=== PATIENT | female | born 1955 | race Caucasian/White ===

== ENCOUNTER → 2018-04-28 06:14 | Outpatient (CLI) | payer OTHER, SELFPAY ==
--- NOTE | 2018-04-28 10:50 | STRESSREP_ITS ---
Stress Test Report Pharmacologic myocardial perfusion stress test. 62-year-old man with a history of atrial fibrillation. Medications metoprolol Xarelto Lasix lisinopril hydrochlorothiazide. Stress protocol. Resting EKG demonstrates atrial for ablation with an uncontrolled ventricular response rate of 139 bpm resting blood pressure is 122/[address]- T wave changes were noted at rest. 0.4 mg of regadenoson was infused per usual protocol followed by rapid intravenous saline flush injection continuous EKG monitoring was performed. The maximum heart rate attained was 181 bpm which was 114% of maximum predicted heart rate the maximum workload was [address]-T wave changes were noted at rest and at peak infusion. Resting blood pressure is 122/78 final blood pressure was 120/66. Myocardial perfusion protocol. 13.7 mCi of technetium 99m sestamibi was injected at rest. 0.4 mg of regadenoson was infused per usual protocol. At peak infusion 40.4 mCi of technetium 99m sestamibi was injected stress images were obtained stress and rest images were reconstructed and compared in the short axis vertical long and horizontal long axis. Gated images were also obtained pre- Perfusion SPECT analysis: Review of the stress images demonstrate normal uptake of tracer noted in all areas of the myocardium. The resting images similarly demonstrate normal uptake of tracer noted in all areas of the myocardium. No areas of reversibility are noted suggest ischemia and no previous infarct is noted. Gated SPECT analysis: The gated ejection fraction was inaccurately obtained. Please see echocardiographic results. Conclusion: Normal pharmacologic myocardial perfusion stress test with no evidence of ischemia. Atrial fibrillation with uncontrolled ventricular response rate.
== END ==
PROVIDERS: Family Provider Family Medicine; PCP Family Medicine; Visit Provider Internal Medicine Cardiovascular Disease
DX: I25.10 Atherosclerotic heart disease of native coronary artery without angina pectoris (principal); Z13.6 Encounter for screening for cardiovascular disorders; I48.0 Paroxysmal atrial fibrillation
CPT/HCPCS: 78452; 93017; A9500; A4216; J2785

== ENCOUNTER → 2020-06-03 10:49 | Outpatient (CLI) | payer OTHER, SELFPAY | PROVIDERS: PCP Family Medicine; Referring Provider Family Medicine; Visit Provider Family Medicine | DX: Z20.828 Contact with and (suspected) exposure to other viral communicable diseases (principal) | CPT/HCPCS: 87635; 94799; U0003 ==

== ENCOUNTER 2020-12-01 15:29 | Emergency (ER) | payer MEDICARE, OTHER, SELFPAY ==
[2020-12-01] VITALS (10 sets, daily range): BP systolic 93–137; BP diastolic 52–84; PULSE 69–88; RESP 15–18; TEMP 35.8–36.9; O2SAT 98–100; BMI 27.6
--- NOTE | 2020-12-01 15:52 | ED.DCSUM_ITS ---
- ER Visit Summary Date of Service: 12/01/20 Chief Complaint: Low hemoglobin History of Present Illness: The patient is a 65 F who presents with low hemoglobin. She had an outpatient blood draw yesterday which shows her hemoglobin is 6.6. She states that she has had anemia ever since she was placed on Xarelto for atrial fibrillation. She had upper and lower endoscopies which did not show any sources of bleeding. She currently has no blood in her stool. She does have some orthostatic symptoms such as lightheadedness when she goes from a sitting to standing position. She does have dyspnea with exertion as well. She has followed up with surgery for the endoscopies as well as hematology. Hematology placed her on iron supplementation. Physical Examination: Vital signs reviewed. HEENT exam unremarkable. Heart is regular rate and rhythm without murmurs. Lungs are clear to auscultation. Abdomen is soft and nontender. Extremities reveal no edema. Skin exam normal. Neurologic exam normal. Test Results: Hemoglobin is 6.5, hematocrit 19.6. Platelets are 142. Potassium 3.0, creatinine 1.23 Emergency Department Course and Treatment: The patient was given 1 unit of packed red blood cells per repeat H&H shows a hemoglobin of 8.0. The patient does have chronic anemia. Have not found a source of her bleeding. She is having no active bleeding at this time. She has normal blood pressure and heart rate. I feel she can be treated as an outpatient. She will follow-up with Dr. Mccollum, her principal embedded software engineer Treatment Plan: [] Disposition: Discharge Impression: Acute on chronic anemia This note was generated with [employer] dictation software. It may contain incorrect words, spelling, and punctuation that were not noted in review of the chart prior to signing ED Disposition - Plan for ED Patient: Disposition: Home or Assisted Living Instructions: ED Anemia, Type Not Specified (Adult) Referrals: Gurmeet Bowers III, MD [Primary Care Provider] -
[2020-12-01 16:18] LABS: Absolute Lymphocyte Count 1.02 X10^3/uL (0.83-4.51); Absolute Neutrophil Count 4.4 X10^3/uL (2.0-7.7); Basophil# 0.02 X10^3/uL; Basophil% 0.3 % (0-1); Eosinophil# 0.07 X10^3/uL; Eosinophils% 1.1 % (0-5); Hematocrit 19.6 % (37-47); Hemoglobin 6.5 g/dL (12.0-15.0); Lymphocyte # 1.02 X10^3/ul (4.0); Lymphocyte % 16.7 % (19-41); Mean Corp Hgb Conc 33.2 g/dL (32-36); Mean Corpuscular Hgb 31.6 pg (27.0-32.0); Mean Corpuscular Volume 95.1 fL (81-99); Mean Platelet Vol. 9.9 fl (6.2-12.0); Monocyte# 0.59 X10^3/uL; Monocyte% 9.7 % (0-10); NRBC Flagged by Analyzer 0 % (0-5); Neutrophil # 4.37 X10^3/uL (2.7-7.7); Neutrophil % 71.9 % (47-70); Platelet Count 142 K/mm3 (150-450); RBC Distribution Width CV 13.7 % (11.6-14.6); Red Blood Count 2.06 M/mm3 (4.2-5.4); White Blood Count 6.1 K/mm3 (4.4-11.0)
[2020-12-01 16:30] LABS: Anion Gap 11 (5-15); BUN 20 mg/dL (7-18); BUN/Creat Ratio 16.3 RATIO (10-20); Calcium,Total 9.1 mg/dL (8.5-10.1); Chloride 98 mmol/L (98-107); Creatinine, Serum 1.23 mg/dL (0.55-1.02); EST Glomerular Filtration Rate 47 mL/min (>60); Est Glom Filt Rate - Afr Amer 56 mL/min (>60); Estimated Creatinine Clearance 34.41 ml/min; Glucose 252 mg/dL (74-106); Sodium Level 135 mmol/L (136-145)
--- NOTE | 2020-12-01 21:45 | ED.DEP ---
ED Disposition - Plan for ED Patient: Disposition: Home or Assisted Living Instructions: ED Anemia, Type Not Specified (Adult) Referrals: Gurmeet Bowers III, MD [Primary Care Provider] -
== END 2020-12-01 22:10 | disposition home or self-care (01) ==
PROVIDERS: Emergency Provider Emergency Medicine; PCP Family Medicine
DX: D62 Acute posthemorrhagic anemia (principal); I48.91 Unspecified atrial fibrillation; Z79.01 Long term (current) use of anticoagulants
CPT/HCPCS: 36415; 80048; 85018; 85025; 86850; 86900; 86901; 86920; 86922; 99283; J7040; P9016; A4216

== ENCOUNTER 2021-07-22 06:24 | Inpatient (IN) | payer MEDICARE, OTHER, SELFPAY ==
[2021-07-22] VITALS (15 sets, daily range): BP systolic 93–142; BP diastolic 31–77; PULSE 72–95; RESP 16–18; TEMP 36.5–37.2; O2SAT 97–100; BMI 26.6; BMI 26.3
--- NOTE | 2021-07-22 06:56 | EDS_ITS ---
HPI HPI - GI History of Present Illness Chief Complaint: Nausea/Vomiting Informant: patient Abdominal Pain/Flank Pain Onset: Today (1-2 hrs ago) Context: Sudden Onset (awoke feeling poorly, nauseated) Timing: Intermittent (once) Quality: - (no pain) Nausea/Vomiting/Emesis GI Symptom: Positive for Nausea and Vomiting Quality: Positive for Hematemesis Episodes: 1 Diarrhea/Melena/Hematochezia GI Symptom: Negative for Diarrhea, Melena and Hematochezia Narrative Narrative: Patient states she awoke feeling nauseated, she ran to the bathroom and vomited blood one time. She and state it was kind of like a handful of clots, no more than 1/4 cup of blood it did not seem like a lot of volume. Only did it 1 time. No abdominal pain. She felt dizzy at the time, but she does not fear near syncopal or dizzy now. She is on rivaroxaban for chronic A. fib. She had an ablation but was told to stay on it, unless she can get watchman, but she made phone calls to try to get an appointment during the surgeon the pandemic and has not been able to get seen for that yet. She denies any recent rectal bleeding or melena. She has a hx of gastritis and is on Prilosec. Patient last took her Xarelto last night 07/21 with dinner as she usually does. [facility] Medical History Atrial fibrillation Diabetes Home Medications ascorbic acid (vitamin C) 500 mg PO BID 12/01/20 [History Last Taken Unknown] ferrous sulfate 325 mg PO BID 12/01/20 [History Last Taken Unknown] glimepiride 2 mg PO DAILY 12/01/20 [History Last Taken Unknown] hydrochlorothiazide 12.5 mg PO DAILY 12/01/20 [History Last Taken Unknown] magnesium 400 mg PO BID 12/01/20 [History Last Taken Unknown] metformin 1,000 mg PO BID 12/01/20 [History Last Taken Unknown] metoprolol tartrate 25 mg PO BID 12/01/20 [History Last Taken Unknown] rivaroxaban 15 mg PO DAILY 12/01/20 [History Last Taken Unknown] Allergy/AdvReac Type Severity Reaction Status Date / Time pioglitazone [From Actos] AdvReac Swelling Verified 12/01/20 15:31 Qghjdpz-Kit-Exb Reductase AdvReac MAKES MY Verified 12/01/20 15:31 Inhibitor LEGS ACHE Social History Smoking Status: Never smoker ROS ROS ED Constitutional Constitutional ED: Denies chills or fever(s) Eyes Eyes: Denies change in vision or diplopia ENT ENT ED: Denies rhinorrhea or sore throat Cardiovascular Cardiovascular: Denies chest pain or palpitations Respiratory/Chest Respiratory/Chest: Denies cough or dyspnea Gastrointestinal Gastrointestinal: Reports hematemesis, nausea and vomiting; Denies abdominal pain or diarrhea Genitourinary Genitourinary ED: Denies dysuria or hematuria Musculoskeletal Musculoskeletal: Denies back pain or neck pain Integumentary Denies abscess or rash Neurologic Neurologic: Denies headache(s), paresthesias or weakness Psychiatric Psychiatric: Denies anxiety or suicidal thoughts EXAM Physical Exam Const Vital Signs: 07/22/21 06:25 Temperature 97.8 F Temperature Source Temporal Pulse Rate 86 Respiratory Rate 17 Blood Pressure 130/50 H Blood Pressure Mean 76 Pulse Ox 100 Oxygen Delivery Method Room Air Positive well nourished and well developed General Appearance ED: well developed and NAD HEENT Reports moist mucous membranes normocephalic and atraumatic Eyes PERRL and EOMs intact bilaterally Neck full ROM and supple Resp normal respiratory effort and clear to auscultation bilaterally Cardio regular rate, regular rhythm and no murmurs GI non-tender and non-distended Auscultation: normoactive bowel sounds Palpation: soft Back/Spine no CVA tenderness General Back: other FROM Extremity normal to inspection General Extremety ED: Negative for edema, pulses abnormal or tenderness General Extremity: Negative for edema or pulses abnormal Neuro oriented x3, CN's II-XII intact bilaterally and no sensory deficits noted Sensorium / Orientation: awake and alert Motor Exam: strength 5/5 throughout Skin no rashes or lesions noted and no wounds MDM MDM MDM Narrative Medical decision making narrative: Hemoglobin low at 7.6. BUN is slightly elevated, consistent with acute upper GI bleeding. Patient states that 7.6 is close to her chronic level. She states she is chronically low since she has been on Xarelto, and not before that. This is partially why she had scopes done in the past, looking for source of bleeding which apparently was not found. She was scoped in the past by Dr. Busby, who does not practice here anymore. Paged GI but have received no return phone call yet, discussed with hospitalist for admission. Patient is clinically hemodynamically stable and I think okay for the floor. She has not vomited since she has been here, she received Protonix 80 mg IV. Lab Data Attestation: I reviewed the patient's lab results. Labs: Laboratory Results - last 24 hr 07/22/21 07/22/21 06:31 06:31 WBC 8.0 RBC 2.41 L Hgb 7.6 L Hct 23.5 L MCV 97.5 MCH 31.5 MCHC 32.3 RDW Std Deviation 49.1 H RDW Coeff of Jimmy 13.7 Plt Count 160 MPV 10.5 Immature Gran % (Auto) 0.600 Neut % (Auto) 66.8 Lymph % (Auto) 19.9 [place]ckett % (Auto) 9.1 Eos % (Auto) 3.1 Baso % (Auto) 0.5 Absolute Neuts (auto) 5.3 Absolute Lymphs (auto) 1.58 Nucleated RBC % 0 Sodium 137 Potassium 4.1 Chloride 103 Carbon Dioxide 26.0 Anion Gap 8 BUN 27 H Creatinine 1.38 H Estim Creat Clear Calc 30.67 Est GFR (MDRD) Af Amer 49 L Est GFR (MDRD) Non-Af 41 L BUN/Creatinine Ratio 19.6 Glucose 208 H Calcium 9.3 Discharge Plan Triage Chief Complaint: Nausea/Vomiting ED Provider: Emil Patterson Dx/Rx/DC Orders Clinical Impression: Acute upper GI bleeding, Acute on chronic blood loss anemia, Anticoagulated Prescriptions: No Action glimepiride 2 MG tablet 2 mg PO DAILY RF: 0 ferrous sulfate 325 MG tablet 325 mg PO BID RF: 0 metformin 1,000 MG tablet 1,000 mg PO BID RF: 0 hydrochlorothiazide 12.5 MG capsule 12.5 mg PO DAILY RF: 0 magnesium 200 MG tablet 400 mg PO BID RF: 0 metoprolol tartrate 25 MG tablet 25 mg PO BID RF: 0 rivaroxaban 15 MG tablet 15 mg PO DAILY RF: 0 ascorbic acid (vitamin C) 500 MG capsule 500 mg PO BID RF: 0 Primary Care Provider: Billy Wong Referrals: Billy Wong MD [Primary Care Provider] - Disposition Disposition: Acute Care Hospital [facility]
[2021-07-22 07:07] LABS: Absolute Lymphocyte Count 1.58 X10^3/uL (0.83-4.51); Absolute Neutrophil Count 5.3 X10^3/uL (2.0-7.7); Basophil# 0.04 X10^3/uL; Basophil% 0.5 % (0-1); Eosinophil# 0.25 X10^3/uL; Eosinophils% 3.1 % (0-5); Hematocrit 23.5 % (37-47); Hemoglobin 7.6 g/dL (12.0-15.0); Lymphocyte # 1.58 X10^3/ul (0.83-4.51); Lymphocyte % 19.9 % (19-41); Mean Corp Hgb Conc 32.3 g/dL (32-36); Mean Corpuscular Hgb 31.5 pg (27.0-32.0); Mean Corpuscular Volume 97.5 fL (81-99); Mean Platelet Vol. 10.5 fl (6.2-12.0); Monocyte# 0.72 X10^3/uL; Monocyte% 9.1 % (0-10); NRBC Flagged by Analyzer 0 % (0-5); Neutrophil # 5.31 X10^3/uL (2.7-7.7); Neutrophil % 66.8 % (47-70); Platelet Count 160 K/mm3 (150-450); RBC Distribution Width CV 13.7 % (11.6-14.6); RBC Distribution Width SD 49.1 fl (35.1-43.9); Red Blood Count 2.41 M/mm3 (4.2-5.4)
[2021-07-22 07:17] LABS: Anion Gap 8 (5-15); BUN 27 mg/dL (7-18); BUN/Creat Ratio 19.6 RATIO (10-20); Calcium,Total 9.3 mg/dL (8.5-10.1); Chloride 103 mmol/L (98-107); Creatinine, Serum 1.38 mg/dL (0.55-1.02); EST Glomerular Filtration Rate 41 mL/min (>60); Est Glom Filt Rate - Afr Amer 49 mL/min (>60); Estimated Creatinine Clearance 30.67 ml/min; Glucose 208 mg/dL (74-106); Potassium 4.1 mmol/L (3.5-5.1); Sodium Level 137 mmol/L (136-145)
[2021-07-22] MEDS: Ondansetron 4 MG/2 ML Vial IV (07:34)
--- NOTE | 2021-07-22 08:01 | PCM.HP.STD ---
HPI - General General Date of Admission: 07/22/21 Date of Service: 07/22/21 Chief Complaint: Vomiting of blood HPI Narrative ROBBIN STILL, is a 65 F who presents with vomiting of blood. Patient has underlying history segment for paroxysmal A. fib currently on systemic anticoagulation with Xarelto who presented with vomiting of blood. Patient symptoms started around 4 AM on the morning of her admission. Woke up with significant nausea and later developed vomiting blood. Patient admitted to seen some clots in the vomitus. Presented to the emergency department as a result. Patient was found to be anemic with hemoglobin of 7.6. Started on Protonix drip admitted to regular nursing floor with consultation placed to [facility] Medical History (Updated 07/22/21 @ 08:[address] Stanislaw Fitzpatrick MD) Atrial fibrillation Diabetes Home Medications ascorbic acid (vitamin C) 500 mg PO BID 12/01/20 [History Last Taken Unknown] ferrous sulfate 325 mg PO BID 12/01/20 [History Last Taken Unknown] glimepiride 2 mg PO DAILY 12/01/20 [History Last Taken Unknown] hydrochlorothiazide 12.5 mg PO DAILY 12/01/20 [History Last Taken Unknown] magnesium 400 mg PO BID 12/01/20 [History Last Taken Unknown] metformin 1,000 mg PO BID 12/01/20 [History Last Taken Unknown] metoprolol tartrate 25 mg PO BID 12/01/20 [History Last Taken Unknown] rivaroxaban 15 mg PO DAILY 12/01/20 [History Last Taken Unknown] Allergy/AdvReac Type Severity Reaction Status Date / Time pioglitazone [From Actos] AdvReac Swelling Verified 12/01/20 15:31 Ldsaoys-Ogj-Rsc Reductase AdvReac MAKES MY Verified 12/01/20 15:31 Inhibitor LEGS ACHE Family History Father No problems noted. Social History Smoking Status: Never smoker ROS ROS Narrative GENERAL: denies fever, chills, night sweats, weight loss, anorexia HEENT: denies headache, sinus congestion, or drainage, dysphagia RESPIRATORY: denies cough, sputum production, shortness of breath, CARDIAC: denies chest pain, palpitations, orthopnea, PND GASTROINTESTINAL: , nausea, vomiting, GENITOURINARY: denies dysuria, urgency, frequency, EXTREMITY: denies swelling MUSCULOSKELETAL: denies current joint pain or tenderness NEUROLOGIC: denies focal numbness, weakness, tingling HEMATOLOGIC: denies easy bruising and/or hemorrhage INTEGUMENT: denies rashes PSYCHIATRIC: denies suicidal or homicidal ideation Vital Signs Vital Signs Vital Signs: 07/22/21 06:25 Temperature 97.8 F Temperature Source Temporal Pulse Rate 86 Respiratory Rate 17 Blood Pressure 130/50 H Blood Pressure Mean 76 Pulse Ox 100 Oxygen Delivery Method Room Air Weight Weight: 64.1 kg Body Mass Index (BMI) 26.6 Physical Exam Narrative GENERAL: cooperative HEENT: Atraumatic; EYES; Anicteric, Normal Conjunctiva NECK; supple, normal thyroid, RESPIRATORY: Diminished to auscultation CARDIOVASCULAR: Regular S1 S2, GI: soft, normoactive bowel sounds, : No Renal angle tenderness; EXTREMITIES: No edema, no clubbing, MUSCULOSKELETAL: no muscle waisting NEURO: Awake; no lateralizing signs. SKIN: No Rash PSYCH; Flat affect Results Lab / Micro Data Result Diagrams: 07/22/21 06:31 07/22/21 06:31 Labs: Laboratory Results - last 24 hr 07/22/21 06:31: WBC 8.0, RBC 2.41 L, Hgb 7.6 L, Hct 23.5 L, MCV 97.5, MCH 31.5, MCHC 32.3, RDW Std Deviation 49.1 H, RDW Coeff of Jimmy 13.7, Plt Count 160, MPV 10.5, Immature Gran % (Auto) 0.600, Neut % (Auto) 66.8, Lymph % (Auto) 19.9, Karnes % (Auto) 9.1, Eos % (Auto) 3.1, Baso % (Auto) 0.5, Absolute Neuts (auto) 5.3, Absolute Lymphs (auto) 1.58, Nucleated RBC % 0 07/22/21 06:31: Sodium 137, Potassium 4.1, Chloride 103, Carbon Dioxide 26.0, Anion Gap 8, BUN 27 H, Creatinine 1.38 H, Estim Creat Clear Calc 30.67, Est GFR (MDRD) Af Amer 49 L, Est GFR (MDRD) Non-Af 41 L, BUN/Creatinine Ratio 19.6, Glucose 208 H, Calcium 9.3 Assessment & Plan Assessment/Plan (1) Acute upper GI bleeding: (2) Acute on chronic blood loss anemia: (3) Anticoagulated: PLAN: Patient is a 65-year-old lady presented with hematemesis 1. Acute hematemesis ?Suspected to be secondary to gastritis versus peptic ulcer disease in the setting of systemic anticoagulation use. Patient admitted to the regular nursing floor. Started on Protonix drip. Suspected offending medication Xarelto held. Kept n.p.o. with consultation placed to GI for possible endoscopic evaluation 2. Acute on chronic blood loss anemia ?Patient was typed and screened for 2 unit PRBC subsequent monitoring of H&H ordered every 4 hours with plan to transfuse if patient becomes symptomatic or hemoglobin falls below 7 3. Paroxysmal A. fib ?Patient has undergone previous ablation in the past. Rate controlled on metoprolol patient also on Xarelto held in view of her upper GI bleed 4. Diabetes mellitus type 2 ?Held patient oral agents please on Accu-Cheks before meals and at bedtime with sliding scale coverage 5. DVT prophylaxis ?Patient on systemic anticoagulation with Xarelto which is currently being held in view of her upper GI bleed Advance planning; did discuss with the patient and family (patient's ) regarding advanced directives as well as CODE STATUS. Did explain the various scenarios involved ( FULL CODE, DNR CCA, DNR CCA with no intubation, and DNR CC and what each meant) patient elected to be full code with CPR and intubation if needed. Order was placed. Time spent on discussion 18 minutes. Charges/Coding Visit Charges Inpatient E&M: 81548 Subs Hosp L3 Procedures Hospitalists Procedures: 06359 Advncd Care Plan 30 Min
--- NOTE | 2021-07-22 09:14 | PCS.PANDOC ---
PANDEMIC DOCUMENTATION INITIATED: Date: 06/12/2021 Time: 190
[2021-07-22] MEDS: 0.9% Normal Saline 1,000 ML 150 ML IV (09:40)
[2021-07-22] MEDS: Metoprolol Tartrate 25 MG Tablet PO (09:50)
[2021-07-22] MEDS: Ferrous Sulfate 325 MG Tablet PO (09:50)
[2021-07-22] MEDS: Magnesium Chloride 64 MG Delay Rel.Tablet 128 MG PO ×2 (09:50→21:58)
[2021-07-22 10:26] LABS: Hematocrit 21.7 % (37-47); Hemoglobin 6.6 g/dL (12.0-15.0)
[2021-07-22] MEDS: 0.9% Saline Lock 10 ML Syringe IV ×2 (10:37→16:34)
--- NOTE | 2021-07-22 11:47 | CON.PCM.GI_ITS ---
HPI Consult Data Date of Consult: 07/22/21 HPI Narrative HPI Narrative: ROBBIN STILL, is a 65 F who presents from home after waking up with nausea and having multiple episodes of hematemesis. She has a history of paroxysmal A. fib status post ablation on Xarelto. She also has a history anemia and underwent an upper lower endoscopy in 2019 prior to her undergoing ablation. There were no abnormality seen on the upper endoscopy or colonoscopy except for some gastritis. She usually takes her Xarelto at night. She also has a history of diabetes and her blood sugar is under control. She is on iron twice a day. She does not take aspirin. In the ED she was noted to have a hemoglobin of 6.6. Her blood pressure has been stable. At this time she denies any abdominal pain or nausea. She did get Protonix in the emergency room and is awaiting blood transfusion. All other 16 review systems are negative except those pertinent positive mentioned HPI. [facility] Medical History (Updated 07/22/21 @ 08:[address] Stanislaw Fitzpatrick MD) Atrial fibrillation Diabetes Home Medications ferrous sulfate 325 mg PO BID 12/01/20 [History Last Taken 07/21/21] glimepiride 2 mg PO DAILY 12/01/20 [History Last Taken 07/21/21] hydrochlorothiazide 12.5 mg PO DAILY 12/01/20 [History Last Taken 07/21/21] magnesium 400 mg PO BID 12/01/20 [History Last Taken 07/21/21] metformin 1,000 mg PO BID 12/01/20 [History Last Taken 07/21/21] metoprolol tartrate 25 mg PO BID 12/01/20 [History Last Taken 07/21/21] rivaroxaban 15 mg PO DAILY 12/01/20 [History Last Taken 07/21/21] Allergy/AdvReac Type Severity Reaction Status Date / Time pioglitazone [From Actos] AdvReac Swelling Verified 12/01/20 15:31 Aydfxmi-Frn-Fzj Reductase AdvReac MAKES MY Verified 12/01/20 15:31 Inhibitor LEGS ACHE Family History (Updated 07/22/21 @ 08:[address] Stanislaw Fitzpatrick MD) Father No problems noted. Social History Smoking Status: Never smoker ROS Review of Systems ROS Unobtainable: other Constitutional Constitutional: Denies fatigue, fever(s), poor appetite, weight gain or weight loss ENT HEENT: Denies mouth lesions Cardiovascular Cardiovascular: Denies abdominal bloating, abdominal edema or abdominal pain Respiratory/Chest Respiratory/Chest: Denies change in mental status, change in phlegm color, chest congestion or chest tightness Gastrointestinal Gastrointestinal: Denies belching, bloating, change in bowel habits, change in stool character, chewing difficulty, coffee ground emesis, constipation, cramping, diarrhea, dyspepsia, dysphagia, early satiety, excessive flatus, fecal incontinence, heartburn, hematemesis, hematochezia, hemorrhoids, loose stools, melena, nausea, odynophagia, rectal bleeding, tenesmus, vomiting or weight changes Genitourinary Genitourinary: Denies abdominal discomfort, burning urination or itching Musculoskeletal Musculoskeletal: Reports as per HPI; Denies muscle weakness or myalgias Integumentary Integumentary: Denies jaundice Neurologic Neurologic: Denies lack of coordination or weakness Psychiatric Psychiatric: Denies confusion, depression, memory loss, mood swings, paranoia or suicidal ideation Endocrine Endocrinology: Denies systems reviewed and no addt'l complaints, except as documented Hematologic/Lymphatic Hematologic/Lymphatic: Denies anemia, easy bleeding, easy bruising or lymphadenopathy Allergic/Immunologic Allergic/Immunologic: Denies systems reviewed and no addt'l complaints, except as documented Physical Exam Const alert General Appearance: cooperative Orientation / Consciousness: oriented to person HEENT hearing grossly normal bilaterally Head and Scalp: normal to inspection Face and Sinus: face symmetric Nose: external nose normal Mouth: oral and palatal mucosa normal Eyes conjunctivae normal General Eye: normal appearance of both eyes Neck full ROM General: normal visual inspection Lymph Lymphatic: no lymphadenopathy noted Chest inspection of chest normal and palpation of chest normal Chest: symmetrical chest wall rise Resp normal respiratory effort Effort and Inspection: able to speak in complete sentences Cardio regular rate GI non-distended Percussion: normal to percussion Rectal Exam: deferred Neuro Speech: speech normal Gait (Neuro): normal gait Lab / Micro Data Result Diagrams: 07/22/21 10:15 07/22/21 06:31 Labs: Laboratory Results - last 24 hr 07/22/21 06:31: WBC 8.0, RBC 2.41 L, Hgb 7.6 L, Hct 23.5 L, MCV 97.5, MCH 31.5, MCHC 32.3, RDW Std Deviation 49.1 H, RDW Coeff of Jimmy 13.7, Plt Count 160, MPV 10.5, Immature Gran % (Auto) 0.600, Neut % (Auto) 66.8, Lymph % (Auto) 19.9, [place] % (Auto) 9.1, Eos % (Auto) 3.1, Baso % (Auto) 0.5, Absolute Neuts (auto) 5.3, Absolute Lymphs (auto) 1.58, Nucleated RBC % 0 07/22/21 06:31: Sodium 137, Potassium 4.1, Chloride 103, Carbon Dioxide 26.0, Anion Gap 8, BUN 27 H, Creatinine 1.38 H, Estim Creat Clear Calc 30.67, Est GFR (MDRD) Af Amer 49 L, Est GFR (MDRD) Non-Af 41 L, BUN/Creatinine Ratio 19.6, Glucose 208 H, Calcium 9.3 07/22/21 07:14: Blood Type O POSITIVE, Antibody Screen NEGATIVE 07/22/21 07:14: Crossmatch See Detail 07/22/21 10:15: Hgb 6.6 L, Hct 21.7 L Assessment & Plan Assessment/Plan (1) Acute upper GI bleeding: PLAN: Diagnosis of upper GI bleed would be Cari-Jackson tear, peptic ulcer disease in the stomach or duodenum from Xarelto therapy in a patient that has diabetes and possible gastroparesis. Also differential diagnosis is AVM, gastritis or telangiectasia. Patient should undergo EGD to evaluate patient's upper GI tract. She was explained alternatives, risks, benefits including not withstanding bleeding, infection, sepsis, perforation, need for emergency surgery . She will have an ASA of 3. Charges/Coding Visit Charges Inpatient E&M: 22029 Init Hosp L2
--- NOTE | 2021-07-22 12:30 | CASEMGMT ---
FLOR MILLER assessment: Face to Face with patient for initial transition planning/care coordination assessment. FLOR MILLER introduced self and role at [facility], pt voices understanding and consents to assessment. Pt is lying in bed in no distress. Pt is A/Ox4 and answers all questions appropriately. Pt's is at bedside during assessment. Care providers, pharmacy, and demographics verified. Presentation: Pt vomited blood this am, hx low blood count and is on Xarelto Admitting dx: Upper GI bleed PCP: Judith Specialists: GEORGE Guerrero cardio Preferred Pharmacy: [facility] order Insurance: [facility] A/B, AARP Prescription Benefit: [employer] Living Will/HPOA: Pt states has LW/HPOA and is aware that they are not on file at [facility]. Pt states her , Dandre Morse, is HPOA. LNOK: Dandre Morse, Living Arrangements: Pt states lives with in 2 story home and states no concerns at home. Pt states is independent with ADL's. Transportation: Pt states drives self and states no transportation concerns. DME/HHC: Pt states no current DME or need for any further DME. Pt states no hx of HHC or SNF in the past. Pt states no concerns with going home at time of discharge. Pt is retired. Pt states does not smoke cigarettes or drink ETOH. Pt states no further concerns/needs. CM to follow for any further discharge planning/needs. Advised pt to ask for CM if any further questions/concerns/needs arise, voices understanding. Pt Goal: Home Plan[place]OR MILLER
[2021-07-22 12:51] LABS: Bedside Glucose 281 mg/dL (70-110)
[2021-07-22] MEDS: Epinephrine (1 mg/ml) 1 MG/ML VIAL ×2 (14:45)
[2021-07-22] MEDS: 0.9% Normal Saline (Pres. free 10 ML Vial (14:56)
--- NOTE | 2021-07-22 15:05 | OP.EGD_ITS ---
Patient Name: Jacqueline Morse Procedure Date: 07/22/2021 2:04 PM Date of : 1955 Age: 65 Procedure: Upper GI endoscopy Indications: Acute post hemorrhagic anemia Providers: Minh Martinez DO Complications: No immediate complications. Procedure: Pre-Anesthesia Assessment: - Prior to the procedure, a History and Physical was performed, and patient medications and allergies were reviewed. The patient is competent. The risks and benefits of the procedure and the sedation options and risks were discussed with the patient. All questions were answered and informed consent was obtained. Patient identification and proposed procedure were verified by the physician in the pre-procedure area. Mental Status Examination: alert and oriented. Airway Examination: normal oropharyngeal airway and neck mobility. Respiratory Examination: clear to auscultation. CV Examination: normal. Prophylactic Antibiotics: The patient does not require prophylactic antibiotics. Prior Anticoagulants: The patient has taken no previous anticoagulant or antiplatelet agents. ASA Grade Assessment: III - A patient with severe systemic disease. After reviewing the risks and benefits, the patient was deemed in satisfactory condition to undergo the procedure. The anesthesia plan was to use moderate sedation / analgesia (conscious sedation). Immediately prior to administration of medications, the patient was re-assessed for adequacy to receive sedatives. The heart rate, respiratory rate, oxygen saturations, blood pressure, adequacy of pulmonary ventilation, and response to care were monitored throughout the procedure. The physical status of the patient was re-assessed after the procedure. Scope In: 2:24:02 PM Scope Out: 2:53:38 PM Total Procedure Duration Time 0 hours 29 minutes 36 seconds Findings: Two columns of non-bleeding grade II varices were found in the lower third of the esophagus, 38 cm from the incisors. No red marcus signs were present. Red blood was found in the entire examined stomach. Four bleeding angiodysplastic lesions were found on the anterior wall of the gastric body. Estimated blood loss: none. Two angiodysplastic lesions with bleeding were found in the first portion of the duodenum. Area was successfully injected with 4 mL of a 1:10,000 solution of epinephrine for hemostasis. Estimated blood loss was minimal. Impression: - Non-bleeding grade II esophageal varices. - Red blood in the entire stomach. - Red blood in the entire stomach. - Four bleeding angiodysplastic lesions in the stomach. - Two bleeding angiodysplastic lesions in the duodenum. Injected. - No specimens collected. Recommendation: - Observe patient in PACU for ongoing care. - Clear liquid diet today. - Give Protonix (pantoprazole): initiate therapy with 80 mg IV bolus, then 8 mg/hr IV by continuous infusion today. - Use metoclopramide 10 mg PO QID; 30 min AC and HS daily. - octreotide 10mg/hr x 24 hours - Continue present medications. Procedure Code(s): --- Professional --- 23381, Esophagogastroduodenoscopy, flexible, transoral; with control of bleeding, any method CPT copyright 2017 [employer]. All rights reserved. The codes documented in this report are preliminary and upon cell builder review may be revised to meet current compliance requirements. Minh Martinez DO 07/22/2021 3:05:06 PM This report has been signed electronically. Number of Addenda: 1 Note Initiated On: 07/22/2021 2:04 PM Addendum Number: 1 Addendum Date: 06/28/2022 4:03:41 PM MAC was used instead of moderate sedation for this patient. Minh Martinez DO 06/28/2022 4:03:48 PM This report has been signed electronically.
--- NOTE | 2021-07-22 15:05 | OP.CCLET_ITS ---
06/28/2022 Billy Wong MD Re : Upper GI endoscopy procedure for Jacqueline Morse Dear Dr. Wong This procedure was performed on Thursday, July 22, 2021. My impressions and recommendations are as follows: Impressions : - Non-bleeding grade II esophageal varices. - Red blood in the entire stomach. - Red blood in the entire stomach. - Four bleeding angiodysplastic lesions in the stomach. - Two bleeding angiodysplastic lesions in the duodenum. Injected. - No specimens collected. Recommendations : - Observe patient in PACU for ongoing care. - Clear liquid diet today. - Give Protonix (pantoprazole): initiate therapy with 80 mg IV bolus, then 8 mg/hr IV by continuous infusion today. - Use metoclopramide 10 mg PO QID; 30 min AC and HS daily. - octreotide 10mg/hr x 24 hours - Continue present medications. My findings are described in the full procedure note, which is enclosed. If I can be of further assistance, please feel free to contact me at . Sincerely, Minh Martinez, 07/22/2021 3:05:06 PM This report has been signed electronically.
--- NOTE | 2021-07-22 15:08 | US_ITS ---
STUDY: ABDOMINAL ULTRASOUND - RIGHT UPPER QUADRANT REASON FOR VISIT: Female, 65 years old cirrhosis and GI bleed -- TECHNIQUE: Ultrasound evaluation of the right upper quadrant was performed with real-time and static daly-scale imaging. TECHNICAL QUALITY: Adequate. COMPARISON: None. FINDINGS: Liver: The liver measures 13.7 cm. Coarsened echotexture throughout the liver with microlobulated contours consistent with cirrhosis. The bile ducts are within normal limits. There is hepatic color flow. The direction of portal flow is hepatopetal. There is no demonstrated mass lesion. Gallbladder: The patient is status post cholecystectomy. Common Bile Duct (C.B.D.): The common bile duct measures 15 mm. This can be within normal limits status post cholecystectomy. There is no intrahepatic biliary ductal dilation. Pancreas: No evidence of pancreatic mass. Pancreatic duct is without abnormal dilation. Right Kidney: Normal size of the right kidney. The right kidney measures 9.4 cm. Normal renal cortex. The right cortex measures 1.0 cm. There is no demonstrated renal mass or cyst. There is no right hydronephrosis. There is a small amount of ascites outlining the superior margin of the liver. US/Liver IMPRESSION: Coarse, heterogeneous microlobulated liver consistent with cirrhosis. No focal mass exemplified. Mild ascites 1.5 cm diameter common bile duct can be within normal limits in this patient status post cholecystectomy. No intrahepatic biliary ductal dilation. Correlate with laboratory values for evidence of biliary obstruction. Electronically Signed: Taco Ferguson DO at 22:32 EDT Tel , Service support ,
--- NOTE | 2021-07-22 16:05 | NURSING ---
spoke with Pharmacist Joce regarding med drip- states no contraindications for MS3 unit, only if med was being IVP in emergent situation.
[2021-07-22] MEDS: Ceftriaxone 1 GM/50 ML BAG IV (16:31)
[2021-07-22 16:38] LABS: Hematocrit 27.5 % (37-47); Hemoglobin 8.8 g/dL (12.0-15.0)
[2021-07-22 17:16] LABS: Bedside Glucose 296 mg/dL (70-110)
[2021-07-22 21:14] LABS: Hematocrit 21.2 % (37-47); Hemoglobin 7.2 g/dL (12.0-15.0); POSITIVE COUNT YES
[2021-07-22] MEDS: 0.9% Normal Saline 1,000 ML 75 ML IV (21:59)
[2021-07-22 22:15] LABS: Bedside Glucose 299 mg/dL (70-110)
[2021-07-22] MEDS: Insulin Lispro 100 UNIT/ML INSULN.PEN SC (22:57)
[2021-07-23] VITALS (10 sets, daily range): BP systolic 89–113; BP diastolic 40–55; PULSE 67–76; RESP 16–20; TEMP 36.5–36.9; O2SAT 99–100
[2021-07-23 01:39] LABS: Hematocrit 21.3 % (37-47); Hemoglobin 7.3 g/dL (12.0-15.0)
[2021-07-23] MEDS: Insulin Lispro 100 UNIT/ML INSULN.PEN SC ×4 (06:16→22:33)
[2021-07-23 07:06] LABS: Bedside Glucose 201 mg/dL (70-110)
[2021-07-23 07:23] LABS: Absolute Lymphocyte Count 0.75 X10^3/uL (0.83-4.51); Basophil# 0.02 X10^3/uL; Basophil% 0.6 % (0-1); Eosinophil# 0.06 X10^3/uL; Eosinophils% 1.9 % (0-5); Hematocrit 20.8 % (37-47); Hemoglobin 6.8 g/dL (12.0-15.0); Lymphocyte # 0.75 X10^3/ul (0.83-4.51); Lymphocyte % 24.3 % (19-41); Mean Corp Hgb Conc 32.7 g/dL (32-36); Mean Corpuscular Hgb 31.5 pg (27.0-32.0); Mean Corpuscular Volume 96.3 fL (81-99); Mean Platelet Vol. 10.3 fl (6.2-12.0); Monocyte# 0.26 X10^3/uL; Monocyte% 8.4 % (0-10); NRBC Flagged by Analyzer 0 % (0-5); Neutrophil # 1.98 X10^3/uL (2.7-7.7); Neutrophil % 64.2 % (47-70); POSITIVE COUNT YES; Platelet Count 64 K/mm3 (150-450); RBC Distribution Width CV 14.4 % (11.6-14.6); RBC Distribution Width SD 50.3 fl (35.1-43.9); Red Blood Count 2.16 M/mm3 (4.2-5.4); White Blood Count 3.1 K/mm3 (4.4-11.0)
[2021-07-23 07:26] LABS: Differential Indicated SCAN CRITERIA MET
[2021-07-23 07:55] LABS: Platelet Estimate MKD DEC (ADEQ)
--- NOTE | 2021-07-23 08:00 | PCM.PN.HOSP ---
Subjective Subjective Patient underwent EGD today prior findings as discussed below. AUNDREA globin down to 6.8. An order was given for patient to be transfused 1 unit PRBC Objective Data Objective Data Vital Signs: Vital Signs Temp Pulse Resp BP Pulse Ox 98.1 F 74 18 89/48 L 99 07/23/21 03:59 07/23/21 03:59 07/23/21 03:59 07/23/21 06:21 07/23/21 03:59 Oxygen Flow Rate (L/min) 4 Oxygen Delivery Method Room Air Weight: 65.4 kg Body Mass Index (BMI) 26.3 Intake & Output: Intake and Output for Last 24 Hours 07/21/21 07/22/21 07/23/21 23:59 23:59 23:59 Intake Total 1513.00 / 1513.00 82.33 / 82.33 Output Total 900 / 900 Balance 613.00 / 613.00 82.33 / 82.33 Lab / Micro Data Result Diagrams: 07/23/21 06:00 07/23/21 06:00 Labs: Laboratory Results - last 24 hr 07/22/21 07:14: Blood Type O POSITIVE, Antibody Screen NEGATIVE 07/22/21 07:14: Crossmatch See Detail 07/22/21 10:15: Hgb 6.6 L, Hct 21.7 L 07/22/21 12:14: POC Glucose 281 H 07/22/21 16:05: Hgb 8.8 L, Hct 27.5 L 07/22/21 16:39: POC Glucose 296 H 07/22/21 21:00: Hgb 7.2 L, Hct 21.2 L 07/22/21 21:46: POC Glucose 299 H 07/23/21 01:28: Hgb 7.3 L, Hct 21.3 L 07/23/21 06:00: WBC 3.1 L, RBC 2.16 L, Hgb 6.8 L, Hct 20.8 L, MCV 96.3, MCH 31.5, MCHC 32.7, RDW Std Deviation 50.3 H, RDW Coeff of Jimmy 14.4, Plt Count 64 L, MPV 10.3, Immature Gran % (Auto) 0.600, Neut % (Auto) 64.2, Lymph % (Auto) 24.3, Ingham % (Auto) 8.4, Eos % (Auto) 1.9, Baso % (Auto) 0.6, Absolute Neuts (auto) 2.0, Absolute Lymphs (auto) 0.75 L, Nucleated RBC % 0, Platelet Estimate MKD 07/23/21 06:15: POC Glucose 201 H Radiography Diagnostic Testing: Radiology Impression Liver Ultrasound 07/22/21 15:08 IMPRESSION: Coarse, heterogeneous microlobulated liver consistent with cirrhosis. No focal mass exemplified. Mild ascites 1.5 cm diameter common bile duct can be within normal limits in this patient status post cholecystectomy. No intrahepatic biliary ductal dilation. Correlate with laboratory values for evidence of biliary obstruction. Electronically Signed: Taco Ferguson DO at 22:32 EDT Tel , Service support , Physical Exam Narrative GENERAL: cooperative HEENT: Atraumatic; EYES; Anicteric, Normal Conjunctiva NECK; supple, normal thyroid, RESPIRATORY: Diminished to auscultation CARDIOVASCULAR: Regular S1 S2, GI: soft, normoactive bowel sounds, : No Renal angle tenderness; EXTREMITIES: No edema, no clubbing, MUSCULOSKELETAL: no muscle waisting NEURO: Awake; no lateralizing signs. SKIN: No Rash PSYCH; Flat affect Assessment & Plan Assessment/Plan (1) Acute upper GI bleeding: (2) Acute on chronic blood loss anemia: (3) Anticoagulated: PLAN: Patient is a 65-year-old lady presented with hematemesis 1. Acute hematemesis ?Suspected to be secondary to gastritis versus peptic ulcer disease in the setting of systemic anticoagulation use. Patient admitted to the regular nursing floor. Started on Protonix drip. Suspected offending medication Xarelto held. Kept n.p.o. with consultation placed to GI for possible endoscopic evaluation -07/23/2021; EGD performed the day prior demonstrated - Non-bleeding grade II esophageal varices. - Red blood in the entire stomach. - Red blood in the entire stomach. - Four bleeding angiodysplastic lesions in the stomach. - Two bleeding angiodysplastic lesions in the duodenum. Injected. GI subsequently recommended Protonix in addition to metoclopramide as well as octreotide 2. Acute on chronic blood loss anemia ?Patient was typed and screened for 2 unit PRBC subsequent monitoring of H&H ordered every 4 hours with plan to transfuse if patient becomes symptomatic or hemoglobin falls below 7 -07/23/2021. Patient was transfused 1 unit PRBC on 07/22/2021. With hemoglobin dropping to 6.8 this a.m. an additional unit was transfused 3. Paroxysmal A. fib ?Patient has undergone previous ablation in the past. Rate controlled on metoprolol patient also on Xarelto held in view of her upper GI bleed -07/23/2021. Held further discussions with patient and regarding continued use of Xarelto which may need to be permanently discontinued 4. Diabetes mellitus type 2 ?Held patient oral agents please on Accu-Cheks before meals and at bedtime with sliding scale coverage 5. DVT prophylaxis ?Patient on systemic anticoagulation with Xarelto which is currently being held in view of her upper GI bleed Charges/Coding Visit Charges Inpatient E&M: 21364 [facility] Hosp L3
[2021-07-23 08:02] LABS: Anion Gap 8 (5-15); BUN 36 mg/dL (7-18); Calcium,Total 8.1 mg/dL (8.5-10.1); Chloride 107 mmol/L (98-107); EST Glomerular Filtration Rate 48 mL/min (>60); Est Glom Filt Rate - Afr Amer 58 mL/min (>60); Estimated Creatinine Clearance 35.27 ml/min; Glucose 206 mg/dL (74-106); Magnesium 1.9 mg/dL (1.6-2.6); Potassium 4.3 mmol/L (3.5-5.1); Sodium Level 138 mmol/L (136-145)
[2021-07-23] MEDS: Magnesium Chloride 64 MG Delay Rel.Tablet 128 MG PO ×2 (09:02→22:35)
[2021-07-23] MEDS: Metoclopramide 10 MG Tablet PO ×3 (11:40→22:35)
[2021-07-23] MEDS: Ceftriaxone 1 GM/50 ML BAG IV (11:47)
[2021-07-23 12:01] LABS: Bedside Glucose 199 mg/dL (70-110)
[2021-07-23] MEDS: 0.9% Normal Saline 1,000 ML 75 ML IV (14:33)
[2021-07-23 16:20] LABS: Bedside Glucose 160 mg/dL (70-110)
--- NOTE | 2021-07-23 18:34 | PN.GI_ITS ---
Subjective Subjective The patient had 1 episode of melanotic stool overnight. No more melanotic stools since last night. She has been on clear liquids. She denies any nausea. She denies any fatigue, darkened urine, itching or memory issues. Objective Data Objective Data Vital Signs: Vital Signs Temp Pulse Resp BP Pulse Ox 97.8 F 74 16 102/50 L 100 07/23/21 16:14 07/23/21 16:14 07/23/21 16:14 07/23/21 16:14 07/23/21 16:14 Oxygen Flow Rate (L/min) 4 Oxygen Delivery Method Room Air Weight: 144 lb 2.917 oz Body Mass Index (BMI) 26.3 Intake & Output: Intake and Output for Last 24 Hours 07/21/21 07/22/21 07/23/21 23:59 23:59 23:59 Intake Total 1513.00 / 1513.00 50 / 2012.50 Output Total 900 / 900 1450 / 1450 Balance 613.00 / 613.00 563.50 / 563.50 Lab / Micro Data Result Diagrams: 07/23/21 06:00 07/23/21 06:00 Labs: Laboratory Results - last 24 hr 07/22/21 07:14: Crossmatch See Detail 07/22/21 21:00: Hgb 7.2 L, Hct 21.2 L 07/22/21 21:46: POC Glucose 299 H 07/23/21 01:28: Hgb 7.3 L, Hct 21.3 L 07/23/21 06:00: WBC 3.1 L, RBC 2.16 L, Hgb 6.8 L, Hct 20.8 L, MCV 96.3, MCH 31.5, MCHC 32.7, RDW Std Deviation 50.3 H, RDW Coeff of Jimmy 14.4, Plt Count 64 L , MPV 10.3, Immature Gran % (Auto) 0.600, Neut % (Auto) 64.2, Lymph % (Auto) 24.3, [place] % (Auto) 8.4, Eos % (Auto) 1.9, Baso % (Auto) 0.6, Absolute Neuts (auto) 2.0, Absolute Lymphs (auto) 0.75 L, Nucleated RBC % 0, Platelet Estimate MKD 07/23/21 06:00: Sodium 138, Potassium 4.3, Chloride 107, Carbon Dioxide 23.0, Anion Gap 8, BUN 36 H, Creatinine 1.20 H, Estim Creat Clear Calc 35.27, Est GFR (MDRD) Af Amer 58 L, Est GFR (MDRD) Non-Af 48 L, BUN/Creatinine Ratio 30.0 H, Glucose 206 H, Calcium 8.1 L, Magnesium 1.9 07/23/21 06:15: POC Glucose 201 H 07/23/21 11:47: POC Glucose 199 H 07/23/21 16:12: POC Glucose 160 H Radiography Diagnostic Testing: Radiology Impression Liver Ultrasound 07/22/21 15:08 IMPRESSION: Coarse, heterogeneous microlobulated liver consistent with cirrhosis. No focal mass exemplified. Mild ascites 1.5 cm diameter common bile duct can be within normal limits in this patient status post cholecystectomy. No intrahepatic biliary ductal dilation. Correlate with laboratory values for evidence of biliary obstruction. Electronically Signed: Taco Ferguson DO at 22:32 EDT Tel , Service support , Physical Exam Const alert General Appearance: cooperative Orientation / Consciousness: oriented to person HEENT hearing grossly normal bilaterally Head and Scalp: normal to inspection Face and Sinus: face symmetric Nose: external nose normal Mouth: oral and palatal mucosa normal Eyes conjunctivae normal General Eye: normal appearance of both eyes Neck full ROM General: normal visual inspection Lymph Lymphatic: no lymphadenopathy noted Chest inspection of chest normal and palpation of chest normal Chest: symmetrical chest wall rise Resp normal respiratory effort Effort and Inspection: able to speak in complete sentences Cardio regular rate GI non-distended Percussion: normal to percussion Rectal Exam: deferred Neuro Speech: speech normal Gait (Neuro): normal gait Assessment & Plan Assessment/Plan (1) Acute upper GI bleeding: PLAN: She had a massive upper GI bleed secondary to AVMs in the duodenum and the stomach. The AVMs were treated with epinephrine and cauterization. She has been on a PPI drip, octreotide and ceftriaxone. Her hemoglobin had decreased down to 6.8 and she got transfused 1 unit packed red blood cells. (2) Cirrhosis: PLAN: This is a new diagnosis for her. I told her is likely secondary to diabetes. She has not been in A. fib and has not been on Xarelto. I will start Xifaxan 550 mg twice a day. I will not put her on a sodium restriction at this time because she only has trace ascites around her liver. I will also not start her on lactulose at this time because she has not shown any signs of encephalopathy and hopefully the Xifaxan will take care of it. She will need an alpha-fetoprotein to screen for hepatocellular carcinoma. I had a long talk with her and her yesterday and today regarding the natural history of cirrhosis in the setting of diabetes. She will need to be started on pioglitazone 50 mg a day(as it has been shown to help patients with nonalcoholic steatohepatitis and diabetes preserve some liver function) along with ursodiol (to decrease biliary stasis and promote bile flow in the setting of cirrhosis) 250 or 500 mg twice a day. I will also get labs to look for any signs of autoimmune hepatitis, chronic hepatitis C, chronic hepatitis B, PBC, hemochromatosis, sarcoidosis, amyloidosis. She will also need MRI as an outpatient. 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 Continue to monitor platelet count. She will also need her INR checked. Charges/Coding Visit Charges Inpatient E&M: 52028 Subs Hosp L3
[2021-07-23 22:16] LABS: Ferritin 33 ng/mL (8-252)
[2021-07-23] MEDS: Ursodiol 250 MG Tablet PO (22:35)
[2021-07-23] MEDS: rifAXIMin 550 MG Tablet PO (22:35)
[2021-07-23 23:05] LABS: Bedside Glucose 190 mg/dL (70-110)
[2021-07-24] VITALS (13 sets, daily range): BP systolic 90–130; BP diastolic 39–99; PULSE 72–83; RESP 16–18; TEMP 36.1–37; O2SAT 96–100; BMI 27.1
[2021-07-24] MEDS: 0.9% Normal Saline 1,000 ML 75 ML IV (03:57)
--- NOTE | 2021-07-24 05:00 | EKG12_ITS ---
Test Reason : AM EKG Blood Pressure : / mmHG Vent. Rate : 078 BPM Atrial Rate : 078 BPM P-R Int : 134 ms QRS Dur : 074 ms QT Int : 420 ms P-R-T Axes : 027 003 -17 degrees QTc Int : 478 ms Normal sinus rhythm Nonspecific ST and T wave abnormality Prolonged QT Abnormal ECG No previous ECGs available Confirmed by KIMBERLY TORERS, FARTUN ([id number]), copy editor DAWN ZENG ([id number]) on 07/26/2021 11:06:11 AM Referred By: AMBAR Confirmed By:FARTUN HARRIS MD
[2021-07-24 05:54] LABS: Absolute Neutrophil Count 1.9 X10^3/uL (2.0-7.7); Basophil# 0.01 X10^3/uL; Basophil% 0.4 % (0-1); Eosinophil# 0.08 X10^3/uL; Hematocrit 26.5 % (37-47); Hemoglobin 8.4 g/dL (12.0-15.0); Lymphocyte % 18.5 % (19-41); Mean Corp Hgb Conc 31.7 g/dL (32-36); Mean Corpuscular Hgb 30.7 pg (27.0-32.0); Mean Corpuscular Volume 96.7 fL (81-99); Mean Platelet Vol. 10.3 fl (6.2-12.0); Monocyte% 7.4 % (0-10); NRBC Flagged by Analyzer 0 % (0-5); Neutrophil # 1.89 X10^3/uL (2.7-7.7); POSITIVE COUNT YES; POSITIVE DIFFERENTIAL YES; Platelet Count 55 K/mm3 (150-450); RBC Distribution Width CV 14.2 % (11.6-14.6); RBC Distribution Width SD 50.2 fl (35.1-43.9); Red Blood Count 2.74 M/mm3 (4.2-5.4); White Blood Count 2.7 K/mm3 (4.4-11.0)
[2021-07-24 06:30] LABS: Anion Gap 9 (5-15); BUN 25 mg/dL (7-18); BUN/Creat Ratio 19.4 RATIO (10-20); Calcium,Total 8.2 mg/dL (8.5-10.1); Chloride 108 mmol/L (98-107); Creatinine, Serum 1.29 mg/dL (0.55-1.02); EST Glomerular Filtration Rate 44 mL/min (>60); Est Glom Filt Rate - Afr Amer 53 mL/min (>60); Estimated Creatinine Clearance 32.81 ml/min; Glucose 224 mg/dL (74-106); Potassium 4.1 mmol/L (3.5-5.1); Sodium Level 139 mmol/L (136-145)
[2021-07-24 06:37] LABS: Phosphorus 3.8 mg/dL (2.5-4.9)
[2021-07-24 06:53] LABS: International Normalized Ratio 1.4; Prothrombin Time (Protime)PT. 16.1 SECONDS (11.7-14.9)
[2021-07-24 06:54] LABS: Partial Thromboplast Time 27.2 Seconds (24.1-36.2)
[2021-07-24 06:55] LABS: Bedside Glucose 211 mg/dL (70-110)
[2021-07-24 06:56] LABS: Differential Indicated SCAN CRITERIA MET
[2021-07-24 07:47] LABS: Hypochromasia 2+; Platelet Estimate MKD DEC (ADEQ)
[2021-07-24] MEDS: Ceftriaxone 1 GM/50 ML BAG IV (10:22)
--- NOTE | 2021-07-24 10:41 | NURSING ---
PT TO ENDO
--- NOTE | 2021-07-24 12:08 | OP.EGD_ITS ---
Patient Name: Jacqueline Morse Procedure Date: 07/24/2021 11:37 AM Date of : 1955 Age: 65 Procedure: Upper GI endoscopy Indications: Acute post hemorrhagic anemia Providers: Minh Martinez DO Medicines: Monitored Anesthesia Care Patient Profile: This is a 65 year old female. Refer to note in patient chart for documentation of history and physical. Patient has symptoms. The symptoms first began 04,. She is status post EGD for ulcer treatment within the past month. Complications: No immediate complications. Procedure: Pre-Anesthesia Assessment: - Prior to the procedure, a History and Physical was performed, and patient medications and allergies were reviewed. The patient is competent. The risks and benefits of the procedure and the sedation options and risks were discussed with the patient. All questions were answered and informed consent was obtained. Patient identification and proposed procedure were verified by the physician in the pre-procedure area. Mental Status Examination: alert and oriented. Airway Examination: normal oropharyngeal airway and neck mobility. Respiratory Examination: clear to auscultation. CV Examination: normal. Prophylactic Antibiotics: The patient does not require prophylactic antibiotics. Prior Anticoagulants: The patient has taken no previous anticoagulant or antiplatelet agents. ASA Grade Assessment: II - A patient with mild systemic disease. After reviewing the risks and benefits, the patient was deemed in satisfactory condition to undergo the procedure. The anesthesia plan was to use moderate sedation / analgesia (conscious sedation). Immediately prior to administration of medications, the patient was re-assessed for adequacy to receive sedatives. The heart rate, respiratory rate, oxygen saturations, blood pressure, adequacy of pulmonary ventilation, and response to care were monitored throughout the procedure. The physical status of the patient was re-assessed after the procedure. After obtaining informed consent, the endoscope was passed under direct vision. Throughout the procedure, the patient's blood pressure, pulse, and oxygen saturations were monitored continuously. The gastroscope was introduced through the mouth, and advanced to the second part of duodenum. The upper GI endoscopy was accomplished without difficulty. The patient tolerated the procedure well. Moderate Sedation: Moderate (conscious) sedation was personally administered by an anesthesia professional. The following parameters were monitored: oxygen saturation, heart rate, blood pressure, and response to care. Scope In: 11:52:18 AM Scope Out: 12:00:04 PM Total Procedure Duration Time 0 hours 7 minutes 46 seconds Findings: Non-bleeding grade II varices were found in the lower third of the esophagus,. No stigmata of recent bleeding were evident and no red marcus signs were present. One band was successfully placed with complete eradication, resulting in deflation of varices. There was no bleeding during the procedure. Localized moderately erythematous mucosa without bleeding was found in the stomach. Two non-bleeding linear gastric ulcers with no stigmata of bleeding were found in the stomach. Localized moderate inflammation characterized by congestion (edema) was found in the duodenal bulb. Impression: - Non-bleeding grade II esophageal varices. Completely eradicated. Banded. - Erythematous mucosa in the stomach. - Non-bleeding gastric ulcers with no stigmata of bleeding. - Duodenitis. - No specimens collected. - Non-bleeding grade II esophageal varices. Banded. Banded. - Chronic gastritis. - Portal hypertensive gastropathy. - Non-obstructing non-bleeding gastric ulcers with no stigmata of bleeding. - Acute duodenitis. Recommendation: - Discharge patient to home. - Resume previous diet. - Continue present medications. - Return to my office in 2 weeks. Procedure Code(s): --- Professional --- 41753, Esophagogastroduodenoscopy, flexible, transoral; with band ligation of esophageal/gastric varices CPT copyright 2017 [employer]. All rights reserved. The codes documented in this report are preliminary and upon vegetable packer review may be revised to meet current compliance requirements. Minh Martinez DO 07/24/2021 12:07:49 PM This report has been signed electronically. Number of Addenda: 1 Note Initiated On: 07/24/2021 11:37 AM Addendum Number: 1 Addendum Date: 06/28/2022 4:07:02 PM MAC was used instead of moderate sedation for this patient. Minh Martinez DO 06/28/2022 4:07:10 PM This report has been signed electronically.
--- NOTE | 2021-07-24 12:09 | OP.CCLET_ITS ---
06/28/2022 Billy Wong MD Re : Upper GI endoscopy procedure for Jacqueline Morse Dear Dr. Wong This procedure was performed on Saturday, July 24, 2021. My impressions and recommendations are as follows: Impressions : - Non-bleeding grade II esophageal varices. Completely eradicated. Banded. - Erythematous mucosa in the stomach. - Non-bleeding gastric ulcers with no stigmata of bleeding. - Duodenitis. - No specimens collected. - Non-bleeding grade II esophageal varices. Banded. Banded. - Chronic gastritis. - Portal hypertensive gastropathy. - Non-obstructing non-bleeding gastric ulcers with no stigmata of bleeding. - Acute duodenitis. Recommendations : - Discharge patient to home. - Resume previous diet. - Continue present medications. - Return to my office in 2 weeks. My findings are described in the full procedure note, which is enclosed. If I can be of further assistance, please feel free to contact me at . Sincerely, Minh Martinez, 07/24/2021 12:07:49 PM This report has been signed electronically.
[2021-07-24 13:31] LABS: Bedside Glucose 239 mg/dL (70-110)
[2021-07-24] MEDS: Metoclopramide 10 MG Tablet PO (13:31)
[2021-07-24] MEDS: Insulin Lispro 100 UNIT/ML INSULN.PEN SC (13:32)
[2021-07-24] MEDS: Metoprolol Tartrate 25 MG Tablet PO (14:15)
[2021-07-24] MEDS: Magnesium Chloride 64 MG Delay Rel.Tablet 128 MG PO (14:15)
[2021-07-24] MEDS: rifAXIMin 550 MG Tablet PO (14:16)
[2021-07-24] MEDS: Ursodiol 250 MG Tablet PO (14:16)
--- NOTE | 2021-07-24 15:21 | DS.PCM_ITS ---
Providers Date of Admission: 07/22/21 Primary Care Physician: Dr. Billy Wong MD Consultations 07/22/21 07:56 Consult: Gastroenterology Routine Consulting Provider: Brian Casper Reason for Consult: Upper GI bleed EMERGENT Consult: No MD Notified: Yes Date Notified: 07/22/21 Time Notified: 10:34 Method of Notification: Verbal Method of Consult:: In-Person Reason For Visit: UPPER GI BLEED Diagnosis Discharge Diagnosis (1) Acute upper GI bleeding: Status: Acute Code(s): K92.2 - Gastrointestinal hemorrhage, unspecified (2) Cirrhosis: Status: Acute Code(s): K74.60 - Unspecified cirrhosis of liver (3) Thrombocytopenia: Status: Acute Code(s): D69.6 - Thrombocytopenia, unspecified Medications at Discharge Home Medications ferrous sulfate 325 mg PO BID 12/01/20 glimepiride 2 mg PO DAILY 12/01/20 hydrochlorothiazide 12.5 mg PO DAILY 12/01/20 magnesium 400 mg PO BID 12/01/20 metformin 1,000 mg PO BID 12/01/20 metoprolol tartrate 25 mg PO BID 12/01/20 rivaroxaban 15 mg PO DAILY 12/01/20 ciprofloxacin HCl [Cipro] 500 mg PO BID #8 tab 07/24/21 pantoprazole [Protonix] 40 mg PO BID #60 tab 07/24/21 rifaximin [Xifaxan] 550 mg PO BID #60 tab 07/24/21 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 mg PO BID #60 tab 07/24/21 Hospital Course Procedures Blood transfusion and EGD (X2) Summary of Care Provided Minutes Spent on Discharge: 42 Hospital Course: Mrs. Morse is a 65-year-old white female who was presented to the emergency department [facility] on 07/22/2021 with a chief complaint of vomiting of blood. The patient has a history of paroxysmal atrial fibrillation and was on systemic anticoagulation with Xarelto. Her hematemesis started around 4 AM on the morning of admission. She woke up with significant nausea and later development hematemesis. Her hemoglobin was 7.6 on admission and she was started on a Protonix drip and a consultation was placed to gastroenterology. An EGD was done that day and she was found to have 2 columns of nonbleeding grade 2 esophageal varices in the lower third of the esophagus with 4 bleeding angiodysplastic lesions in the anterior wall of the gastric body and 2 bleeding angiodysplastic lesions in the duodenum. They were injected with epinephrine and hemostasis was achieved. She was maintained on a Protonix drip, given Reglan to clear her stomach from blood and placed on octreotide. 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 No sodium restriction was recommended at discharge as she does not have significant amount of ascites. An outpatient AFP was recommended. Pioglitazone was recommended however the patient has a hist ory of allergy with swelling related to utilization of this drug in the past. Work-up for autoimmune hepatitis was also performed and lab was pending at discharge. A repeat EGD was performed on 07/24/2021 in which esophageal banding was performed. This EGD showed an erythematous mucosa of the stomach and nonbleeding gastric ulcers with no stigmata of recent bleeding as well as duodenitis and chronic gastritis with portal hypertensive gastropathy. Given her GI bleed and finding of cirrhosis she was treated with empiric ceftriaxone for SBP prophylaxis and was continued on Cipro for 4 more days to complete a 7- day course as prophylaxis for SBP. Her Xarelto was held upon discharge and patient is to continue to hold this unless instructed otherwise. She was also discharged home on Protonix 40 mg twice daily given her gastritis and has been instructed to follow-up with gastroenterology in 2 weeks. She was able to tolerate a regular diet prior to discharge and had no evidence of bleeding. She was also instructed to follow-up with her PCP in 1 to 2 weeks. Discharge diagnoses: Acute upper GI bleed Acute anemia Liver cirrhosis Thrombocytopenia Esophageal varices Gastritis Duodenitis Portal hypertensive gastropathy Gastric ulcers DM-2 Hypertension PAF Physical Exam Const alert, oriented x3 and no apparent distress Constitutional Narrative: Overweight white female lying in bed, at bedside, patient appears nontoxic and comfortable General Appearance: cooperative, comfortable, well kempt and well developed Orientation / Consciousness: awake Exam Limitations: no limitations Nutritional Appearance: overweight HEENT normocephalic, head/scalp atraumatic and hearing grossly normal bilaterally Eyes PERRL, EOMs intact bilaterally and conjunctivae normal Eyes Narrative: No scleral icterus Neck no lymphadenopathy, supple and no JVD Neck Narrative: Trachea midline, no thyroid enlargement Resp normal respiratory effort, no retractions, no use of accessory muscles and clear to auscultation bilaterally Auscultation: Negative for crackles, rales, rhonchi or wheezes Cardio regular rate, regular rhythm, S1 normal heart sound, S2 normal heart sound, no murmurs, no rub, no gallops, no clicks and no JVD GI normal to inspection, nondistended, normoactive bowel sounds, soft to palpation, non-tender and non-distended Extremity no clubbing, cyanosis or edema Skin no rashes or lesions noted, no wounds, skin turgor normal and no jaundice Neuro oriented x3, CN's II-XII intact bilaterally, moves all extremities and no focal motor deficits Sensorium / Orientation: awake, alert, oriented to person, oriented to place and oriented to time Speech: speech normal Psych affect normal Weight / BMI Weight Weight: 65 kg Body Mass Index (BMI) 27.1 ABG / Lab / Microbiology Data Result Diagrams: 07/24/21 05:15 07/24/21 05:15 Laboratory: Laboratory Results - last 24 hr 07/23/21 16:12: POC Glucose 160 H 07/23/21 21:15: Ferritin 33 07/23/21 22:22: POC Glucose 190 H 07/24/21 05:15: WBC 2.7 L, RBC 2.74 L, Hgb 8.4 L, Hct 26.5 L, MCV 96.7, MCH 30.7, MCHC 31.7 L, RDW Std Deviation 50.2 H, RDW Coeff of Jimmy 14.2, Plt Count 55 L, MPV 10.3, Immature Gran % (Auto) 0.700, Neut % (Auto) 70.0, Lymph % (Auto) 18.5 L, Baldwin % (Auto) 7.4, Eos % (Auto) 3.0, Baso % (Auto) 0.4, Absolute Neuts (auto) 1.9 L, Absolute Lymphs (auto) 0.50 L, Nucleated RBC % 0, Diff Path Review February foll, Platelet Estimate MKD DEC, Hypochromasia 2+ 07/24/21 05:15: Sodium 139, Potassium 4.1, Chloride 108 H, Carbon Dioxide 22.0, Anion Gap 9, BUN 25 H, Creatinine 1.29 H, Estim Creat Clear Calc 32.81, Est GFR (MDRD) Af Amer 53 L, Est GFR (MDRD) Non-Af 44 L, BUN/Creatinine Ratio 19.4, Glucose 224 H, Calcium 8.2 L 07/24/21 05:15: PT 16.1 H, INR 1.4, APTT 27.2 07/24/21 05:15: Phosphorus 3.8 07/24/21 05:15: Hemoglobin A1c 7.0 H 07/24/21 06:46: POC Glucose 211 H 07/24/21 13:06: POC Glucose 239 H D/C Instructions Discharge Diet: Low fat / Low cholesterol and 1800 Calorie Control Diet Discharge Activity: Return to Normal Activity Return to work on: 07/26/21 Meaningful Use Info Meaningful Use Diagnoses (Choose all that apply): None applicable Discharge Plan Admission Admit Date/Time: 07/22/21 07:51 Primary Reason for Your Visit: Hematemesis Attending Provider: Jody Ralph Primary Care Provider: Billy Wong Discharge Orders/Prescriptions Prescriptions: New 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 mg Tablet 250 mg PO BID Qty: 60 RF: 0 Xifaxan 550 mg Tablet 550 mg PO BID Qty: 60 RF: 0 ciprofloxacin HCl [Cipro] 500 mg tablet 500 mg PO BID Qty: 8 RF: 0 pantoprazole [Protonix] 40 mg tablet,delayed release (DR/EC) 40 mg PO BID Qty: 60 RF: 0 Continued glimepiride 2 MG tablet 2 mg PO DAILY RF: 0 ferrous sulfate 325 MG tablet 325 mg PO BID RF: 0 metformin 1,000 MG tablet 1,000 mg PO BID RF: 0 hydrochlorothiazide 12.5 MG capsule 12.5 mg PO DAILY RF: 0 magnesium 200 MG tablet 400 mg PO BID RF: 0 metoprolol tartrate 25 MG tablet 25 mg PO BID RF: 0 Held rivaroxaban 15 MG tablet 15 mg PO DAILY RF: 0 Hold Instructions: Until otherwise instructed Referrals / Follow Up: Billy Wong MD [Primary Care Provider] - Within 2 Weeks Minh Martinez DO [STAFF PHYSICIAN] - Within 2 Weeks Disposition Disposition (needs filled in before D/C Order can be placed): Home, Self Care Charges/Coding Visit Charges Inpatient E&M: 63751 Disch Hosp
--- NOTE | 2021-07-24 15:47 | PCM.DC ---
Discharge Instructions Diet Discharge Diet: Low fat / Low cholesterol and 1800 Calorie Control Diet Activity Discharge Activity: Return to Normal Activity Return to work on:: 07/26/21 May resume sexual activity in: No Restrictions Follow Up Care Test Results: Test results from this visit will be discussed in further detail at your follow-up appointment, if applicable. Discharge Plan Admission Admit Date/Time: 07/22/21 07:51 Primary Reason for Your Visit: Hematemesis Attending Provider: Jody Ralph Primary Care Provider: Billy Wong Discharge Orders/Prescriptions Prescriptions: New 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 mg Tablet 250 mg PO BID Qty: 60 RF: 0 Xifaxan 550 mg Tablet 550 mg PO BID Qty: 60 RF: 0 ciprofloxacin HCl [Cipro] 500 mg tablet 500 mg PO BID Qty: 8 RF: 0 pantoprazole [Protonix] 40 mg tablet,delayed release (DR/EC) 40 mg PO BID Qty: 60 RF: 0 Continued glimepiride 2 MG tablet 2 mg PO DAILY RF: 0 ferrous sulfate 325 MG tablet 325 mg PO BID RF: 0 metformin 1,000 MG tablet 1,000 mg PO BID RF: 0 hydrochlorothiazide 12.5 MG capsule 12.5 mg PO DAILY RF: 0 magnesium 200 MG tablet 400 mg PO BID RF: 0 metoprolol tartrate 25 MG tablet 25 mg PO BID RF: 0 Held rivaroxaban 15 MG tablet 15 mg PO DAILY RF: 0 Hold Instructions: Until otherwise instructed Referrals / Follow Up: Billy Wong MD [Primary Care Provider] - Within 2 Weeks Minh Martinez DO [STAFF PHYSICIAN] - Within 2 Weeks Disposition Disposition (needs filled in before D/C Order can be placed): Home, Self Care
[2021-07-25 13:10] LABS: Pathologist Review Reviewed
[2021-07-25 16:09] LABS: ANTINUCLEAR ANTIBODIES DIRECT Negative (Negative); Anti-Mitochondrial AB <20.0 Units (0.0-20.0)
--- NOTE | 2021-07-25 16:36 | CASEMGMT ---
Received notification that pt needs a prior auth for her rifaximin. TC to [facility] and received tc number to call. . TC to this number and verbally gave information for prior auth. Reference #[id number]. Rep states this can take up to 72 hours. TC to pt. She is aware to check back with the pharmacy. Pt denies further needs.
[2021-07-30 03:06] LABS: Ceruloplasmin 24.5 mg/dL (19.0-39.0)
[2021-07-30 16:07] LABS: Anti-Smooth Muscle ABS 7 Units (0-19); Copper, Serum or Plasma 115 ug/dL (80-158)
== END 2021-07-24 17:00 | disposition home or self-care (01) | DRG 378 ==
LOC: ED 07:54 → MS3 08:11
PROVIDERS: Anesthesiology; Internal Medicine Gastroenterology; Admitting Provider Internal Medicine; Emergency Provider Emergency Medicine; PCP Family Medicine; Visit Provider Internal Medicine
PROC: 0DJ08ZZ Inspection of Upper Intestinal Tract, Via Natural or Artificial Opening Endoscopic (ICD-10-PCS; CPT 43235; principal; 2021-07-22 14:00)
DX: K31.811 Angiodysplasia of stomach and duodenum with bleeding (principal); D62 Acute posthemorrhagic anemia; K76.6 Portal hypertension; K25.9 Gastric ulcer, unspecified as acute or chronic, without hemorrhage or perforation; I85.10 Secondary esophageal varices without bleeding; K75.81 Nonalcoholic steatohepatitis (NASH); K29.50 Unspecified chronic gastritis without bleeding; I86.4 Gastric varices; K29.80 Duodenitis without bleeding; D69.59 Other secondary thrombocytopenia; I10 Essential (primary) hypertension; I48.0 Paroxysmal atrial fibrillation; D64.9 Anemia, unspecified; E11.9 Type 2 diabetes mellitus without complications; Z79.84 Long term (current) use of oral hypoglycemic drugs; Z79.899 Other long term (current) drug therapy; Z79.01 Long term (current) use of anticoagulants
CPT/HCPCS: 36415; 76705; 80048; 82105; 82390; 82525; 82728; 82962; 83036; 83516; 83735; 84100; 85014; 85018; 85025; 85610; 85730; 86038; 86225; 86235; 86850; 86900; 86901; 86920; 93005; 99251; 99285; J7030; J7040; J7050; P9016; A4216; G0463; J2405; J3490

== ENCOUNTER → 2021-08-15 11:46 | Outpatient (CLI) | payer MEDICARE, OTHER, SELFPAY ==
[2021-08-15 12:56] LABS: Absolute Lymphocyte Count 0.83 X10^3/uL (0.83-4.51); Absolute Neutrophil Count 3.4 X10^3/uL (2.0-7.7); Basophil# 0.03 X10^3/uL; Basophil% 0.6 % (0-1); Eosinophil# 0.15 X10^3/uL; Eosinophils% 3.1 % (0-5); Hematocrit 32.3 % (37-47); Hemoglobin 10.2 g/dL (12.0-15.0); Lymphocyte # 0.83 X10^3/ul (0.83-4.51); Lymphocyte % 17.3 % (19-41); Mean Corp Hgb Conc 31.6 g/dL (32-36); Mean Corpuscular Hgb 30.8 pg (27.0-32.0); Mean Corpuscular Volume 97.6 fL (81-99); Mean Platelet Vol. 10.5 fl (6.2-12.0); Monocyte# 0.38 X10^3/uL; Monocyte% 7.9 % (0-10); NRBC Flagged by Analyzer 0 % (0-5); Neutrophil # 3.39 X10^3/uL (2.7-7.7); Neutrophil % 70.9 % (47-70); Platelet Count 106 K/mm3 (150-450); RBC Distribution Width CV 13.3 % (11.6-14.6); Red Blood Count 3.31 M/mm3 (4.2-5.4); White Blood Count 4.8 K/mm3 (4.4-11.0)
[2021-08-15 13:09] LABS: International Normalized Ratio 1.1; Prothrombin Time (Protime)PT. 13.6 SECONDS (11.7-14.9)
[2021-08-15 13:46] LABS: ALB/GLOB Ratio 0.8 RATIO (0.9-2.4); AST(SGOT) 38 U/L (15-37); Alanine Aminotransfer ALT/SGPT 33 U/L (13-56); Albumin, Serum 3.3 g/dL (3.2-5.0); Alkaline Phosphatase 112 U/L (45-117); Anion Gap 10 (5-15); BUN 22 mg/dL (7-18); BUN/Creat Ratio 15.9 RATIO (10-20); Calcium,Total 9.5 mg/dL (8.5-10.1); Chloride 94 mmol/L (98-107); Creatinine, Serum 1.38 mg/dL (0.55-1.02); EST Glomerular Filtration Rate 41 mL/min (>60); Est Glom Filt Rate - Afr Amer 49 mL/min (>60); Globulin 4.4 g/dL (2.2-4.2); Glucose 140 mg/dL (74-106); Potassium 3.3 mmol/L (3.5-5.1); Protein, Total 7.7 g/dL (6.4-8.2); Sodium Level 129 mmol/L (136-145)
== END ==
PROVIDERS: PCP Family Medicine; Referring Provider Internal Medicine Gastroenterology; Visit Provider Internal Medicine Gastroenterology
DX: I48.91 Unspecified atrial fibrillation (principal); K74.60 Unspecified cirrhosis of liver
CPT/HCPCS: 36415; 80053; 82140; 85025; 85610

== ENCOUNTER 2021-11-17 13:43 | Outpatient (CLI) | payer MEDICARE, OTHER, SELFPAY ==
--- NOTE | 2021-11-17 13:56 | CT_ITS ---
STUDY: CT ABDOMEN AND PELVIS WITH AND WITHOUT CONTRAST REASON FOR EXAM: Female, 66 years old. Liver cirrhosis -- Triple phase RADIATION DOSAGE (If Supplied By Facility): CTDIvol = ( 14.56 ) mGy, DLP = ( 795.74 ) mGycm TECHNIQUE: Transaxial images were obtained from the dome of the diaphragm to the symphysis pubis without oral contrast. IV 100mL Isovue-300 was administered. Sagittal and coronal images were reconstructed. Individualized dose optimization techniques were used for this CT. COMPARISON: None. FINDINGS: Mild degree of increased interstitial markings at the lung bases suggests a mild degree of linear scarring. The visualized portions of the heart are within normal limits. There is a diffuse contour abnormality of the liver consistent with cirrhotic changes. The portal vein is patent. Diffuse fatty infiltration of the liver. Small amount of perihepatic fluid in keeping with ascites. The patient is status post cholecystectomy. There is dilatation of the proximal common bile duct with a transverse dimension of 1.6 cm. This tapers to normal size at the level of the ampulla of VATER. There is mild splenomegaly. Varicosities are seen in the region of the splenic hilum. Normal pancreas. Normal bilateral adrenal glands. Normal right kidney. Normal left kidney. There is a small hiatal hernia. Normal small intestine. There are multiple colonic diverticula consistent with diverticulosis. The appendix is visualized and appears normal. There is scattered atherosclerotic calcification of the abdominal aorta, without a demonstrated aneurysm. Normal inferior vena cava. Normal retroperitoneum. Normal urinary bladder. Small amount of ascitic fluid in the pelvis. Calcified fibroid uterus. There is a small umbilical hernia containing fat. There are degenerative changes of the visualized lumbar spine. CT/CT Abd/Pelvis W/WO Contrast IMPRESSION: Findings in keeping with cirrhosis of the liver. Small amount of perihepatic fluid as well as free fluid in the pelvis. Status post cholecystectomy and dilated common bile duct. Splenomegaly. Electronically Signed: Hans Benz MD at 15:06 EST , Service support ,
[2021-11-17 14:11] LABS: CREATININE FINGERSTICK 1.6 mg/dL (0.55-1.02)
== END 2021-11-17 23:59 | disposition short-term general hospital (02) ==
PROVIDERS: PCP Family Medicine; Referring Provider Internal Medicine Gastroenterology; Visit Provider Internal Medicine Gastroenterology
DX: K74.60 Unspecified cirrhosis of liver (principal)
CPT/HCPCS: 74178; Q9967; A4216

== ENCOUNTER 2021-11-20 08:56 | Outpatient (CLI) | payer MEDICARE, OTHER, SELFPAY ==
--- NOTE | 2021-11-20 08:58 | US_ITS ---
STUDY: ABDOMINAL ULTRASOUND - RIGHT UPPER QUADRANT REASON FOR VISIT: Female, 66 years old Cirrhosis monitoring TECHNIQUE: Ultrasound evaluation of the right upper quadrant was performed with real-time and static daly-scale imaging. TECHNICAL QUALITY: Adequate. COMPARISON: Comparison is made with prior examination dated 07/22/2021. FINDINGS: Liver: The liver measures 13.5 cm. There is a heterogeneous echogenicity of the liver. The bile ducts are within normal limits. There is hepatic color flow. The direction of portal flow is hepatopetal. There is no demonstrated mass lesion. Gallbladder: The patient is status post cholecystectomy. Common Bile Duct (C.B.D.): The common bile duct measures 11 mm. Pancreas: Normal size of the head, body and tail of the pancreas. There is normal echogenicity of the pancreas. There is no demonstrated pancreatic mass or cyst. Right Kidney: Normal size of the right kidney. The right kidney measures 9.9 cm x 5 cm x 4 7 cm. Normal renal cortex. The right cortex measures 1.1 cm. There is no demonstrated renal mass or cyst. There is no right hydronephrosis. IMPRESSION: Stable heterogeneous appearance of the liver. Electronically Signed: Hans Benz MD at 12:44 EST , STUDY: ABDOMINAL ULTRASOUND - ELASTOGRAPHY REASON FOR VISIT: Female, 66 years old. History of cirrhosis. TECHNIQUE: Liver stiffness measurements were obtained on a [employer] 85 ultrasound machine using a CA 1-7 probe following the SRU guidelines. 3 measurements were obtained using a 2-D-SWE method. The IQR/M was 22% suggesting a quality data set. TECHNICAL QUALITY: Adequate. COMPARISON: Comparison is made with prior examination done earlier today. FINDINGS: Liver: Heterogeneous appearance of the liver. Median liver stiffness measured 18 kPa. US/Elastography Parenchyma/Organ IMPRESSION: Liver stiffness measures 18 kPa compatible with F 4 Metavir score. Electronically Signed: Hans Benz MD at 12:45 EST ,
--- NOTE | 2021-11-20 08:58 | US_ITS ---
STUDY: ABDOMINAL ULTRASOUND - RIGHT UPPER QUADRANT REASON FOR VISIT: Female, 66 years old Cirrhosis monitoring TECHNIQUE: Ultrasound evaluation of the right upper quadrant was performed with real-time and static daly-scale imaging. TECHNICAL QUALITY: Adequate. COMPARISON: Comparison is made with prior examination dated 07/22/2021. FINDINGS: Liver: The liver measures 13.5 cm. There is a heterogeneous echogenicity of the liver. The bile ducts are within normal limits. There is hepatic color flow. The direction of portal flow is hepatopetal. There is no demonstrated mass lesion. Gallbladder: The patient is status post cholecystectomy. Common Bile Duct (C.B.D.): The common bile duct measures 11 mm. Pancreas: Normal size of the head, body and tail of the pancreas. There is normal echogenicity of the pancreas. There is no demonstrated pancreatic mass or cyst. Right Kidney: Normal size of the right kidney. The right kidney measures 9.9 cm x 5 cm x 4 7 cm. Normal renal cortex. The right cortex measures 1.1 cm. There is no demonstrated renal mass or cyst. There is no right hydronephrosis. IMPRESSION: Stable heterogeneous appearance of the liver. Electronically Signed: Hans Benz MD at 12:44 EST , STUDY: ABDOMINAL ULTRASOUND - ELASTOGRAPHY REASON FOR VISIT: Female, 66 years old. History of cirrhosis. TECHNIQUE: Liver stiffness measurements were obtained on a [employer] 85 ultrasound machine using a CA 1-7 probe following the SRU guidelines. 3 measurements were obtained using a 2-D-SWE method. The IQR/M was 22% suggesting a quality data set. TECHNICAL QUALITY: Adequate. COMPARISON: Comparison is made with prior examination done earlier today. FINDINGS: Liver: Heterogeneous appearance of the liver. Median liver stiffness measured 18 kPa. US/Abdomen Limited IMPRESSION: Liver stiffness measures 18 kPa compatible with F 4 Metavir score. Electronically Signed: Hans Benz MD at 12:45 EST ,
== END 2021-11-20 23:59 | disposition short-term general hospital (02) ==
LOC: US 08:57
PROVIDERS: PCP Family Medicine; Referring Provider Internal Medicine Gastroenterology; Visit Provider Internal Medicine Gastroenterology
DX: K74.60 Unspecified cirrhosis of liver (principal)
CPT/HCPCS: 76705; 76981

== ENCOUNTER 2021-12-13 05:29 | Day surgery (SDC) | payer MEDICARE, OTHER, SELFPAY ==
[2021-12-13] VITALS (7 sets, daily range): BP systolic 106–142; BP diastolic 41–64; PULSE 69–73; RESP 15–16; TEMP 36.3–36.6; O2SAT 99–100; BMI 25.0
[2021-12-13] MEDS: Lactated Ringers 1,000 ML 15 ML IV (06:14)
[2021-12-13 06:21] LABS: Bedside Glucose 121 mg/dL (70-110)
--- NOTE | 2021-12-13 06:40 | HP.PCM_ITS ---
History and Physical Date of Admission: 12/13/21 66 F who presents to the office today for Last visit 08/09/21 for evaluation of Cirrhosis and diarrhea. Cirrhosis diagnosis received during hospitalization 07/22/21 when she presented to [facility] ED for evaluation of hematemesis. She took Xarelto for atrial fibrillation. EGD 07/22/21 found two columns of nonbleeding grade 2 esophageal varices in the lower third of the esophagus with 4 bleeding angiodysplastic lesions in the anterior wall of the gastric body and 2 bleeding angiodysplastic lesions in the duodenum. Repeat EGD 07/24/21 during which time banding was performed with erythematous mucosa of the stomach and nonbleeding gastric ulcers with no stigmata of recent bleeding as well as duodenitis and chronic gastritis with portal hypertensive gastropathy. Additional history of paroxysmal atrial fibrillation with anticoagulation. Cirrhosis ? Current MELD 16 with a goal of six. Continue PPI and Ursodiol Diarrhea ? bowl movement goal is two BM a day. Hold/adjust lactulose to achieve this. Cholestyramine. Acquired thrombocytopenia. Feels she is doing well since last visit. Continues to take PPI and ursodiol. For the last month she has been having 3-4 BM a day, not currently taking lactulose at this time. ROS Const Constitutional: No anorexia, fatigue, fever(s), weight change or sleep problems Eyes Eyes: No change in vision ENT ENT: No abnormal hearing, difficulty swallowing, mouth lesions, tongue swelling or throat swelling Resp Respiratory: No cough or shortness of breath Cardio Cardiology: No chest pain at rest, chest pain with exertion, shortness of breath or dyspnea on exertion Gastro GI: No difficulty swallowing Genitourinary-Female: No difficulty urinating or burning urination Musc Musculoskeletal: No joint pain, joint swelling, muscle weakness or decreased muscle mass Skin Skin: No hair loss in leg, yellowing of the eye, itchy eyes, rash, skin ulcer or skin swelling Neuro Neurology: No abnormal hearing, abnormal movements, confusion, unsteady gait/balance or memory loss Psych Psychiatric: No anxiety, No confusion and No memory loss Endo Endocrine: No fatigue or weight change Aller/Imm Allergy/Immunologic: No itchy eyes, throat swelling or tongue swelling Kyle/Lymp Hematologic/Lymphatic: No easy bleeding, easy bruising or enlarged lymph nodes Exam Const General: cooperative and comfortable Nutritional Appearance: average body habitus and well nourished [facility] Head: normal to inspection Ears: hearing grossly normal bilaterally Nose: external nose normal Face and sinus: normal facial exam Mouth: oral mucosae normal Throat: posterior oropharynx normal Eyes General: appearance normal, both eyes and all related structures Neck Neck: normal visual inspection Chest Chest palpation & inspection: normal inspection of the chest and normal palpation of entire chest wall Resp Effort & Inspection: normal respiratory effort Auscultation: Bilateral: Clear to Auscultation Cardio Palpation: normal PMI Rate: regular rate Rhythm: regular rhythm GI Inspection: normal to inspection Auscultation: normal bowel sounds Percussion: normal to percussion Palpation: no hepatosplenomegaly Skin General: no rashes or lesions noted Neuro General: patient alert Extrem General: normal to inspection Psych Affect: normal affect Quality Reporting Tobacco Screening ([facility] 138) Smoking Status: Never smoker Assessment and Plan Assessment and Plan (1) Cirrhosis: Status: Acute Orders: Orders: CT Abd/Pelvis W/WO Contrast Today Elastography Parenchyma/Organ Today HIV - [facility] Today CRP Today Ferritin Today LDH Today Erythrocyte Sed Rate Today Hepatitis Panel Acute Today Angiotensin Convert Enzyme Today ANCA Today Haptoglobin Today Miscellaneous Lab Procedure Today Comprehensive Metabolic Profil Today Partial Thromboplast Time Today Prothrombin Time w/INR Today CBC W/Diff, Automated Today AFP, Tumor Marker Today Abdomen Limited 01/22/22 Plan - Dr. Wilkinson Friend, DO: Current meld is 11. We will recheck her meld labs. Her goal is a meld of 6. We will also perform an upper endoscopy for varices screening. Along check a CT scan abdomen pelvis to screen for hepatoma, alpha-fetoprotein is liver labs. I have re-examined the patient. There are no clinical changes since date of exam.
--- NOTE | 2021-12-13 07:01 | OP.CCLET_ITS ---
07/16/2022 Billy Wong MD Re : Upper GI endoscopy procedure for Jacqueline Morse Dear Dr. Wong This procedure was performed on Monday, December 13, 2021. My impressions and recommendations are as follows: Impressions : - Recently bleeding grade III esophageal varices. Incompletely eradicated. Banded. - Portal hypertensive gastropathy. - Normal second portion of the duodenum. - No specimens collected. Recommendations : - Discharge patient to home. - Resume previous diet. - Continue present medications. - Return to my office. My findings are described in the full procedure note, which is enclosed. If I can be of further assistance, please feel free to contact me at . Sincerely, Minh Martinez, 12/13/2021 7:00:34 AM This report has been signed electronically.
--- NOTE | 2021-12-13 07:01 | OP.EGD_ITS ---
Patient Name: Jacqueline Morse Procedure Date: 12/13/2021 6:24 AM Date of : 1955 Age: 66 Procedure: Upper GI endoscopy Indications: Cirrhosis with suspected esophageal varices Providers: Minh Martinez DO Referring MD: Billy Wong MD Medicines: See the Anesthesia note for documentation of the administered medications Patient Profile: This is a 66 year old female. Refer to note in patient chart for documentation of history and physical. Patient has symptoms. Complications: No immediate complications. Procedure: Pre-Anesthesia Assessment: - Prior to the procedure, a History and Physical was performed, and patient medications and allergies were reviewed. The risks and benefits of the procedure and the sedation options and risks were discussed with the patient. All questions were answered and informed consent was obtained. Patient identification and proposed procedure were verified by the physician in the pre-procedure area. Mental Status Examination: alert and oriented. Airway Examination: normal oropharyngeal airway and neck mobility. Respiratory Examination: clear to auscultation. CV Examination: normal. Prophylactic Antibiotics: The patient does not require prophylactic antibiotics. Prior Anticoagulants: The patient has taken no previous anticoagulant or antiplatelet agents. After reviewing the risks and benefits, the patient was deemed in satisfactory condition to undergo the procedure. The anesthesia plan was to use moderate sedation / analgesia (conscious sedation). Immediately prior to administration of medications, the patient was re-assessed for adequacy to receive sedatives. The heart rate, respiratory rate, oxygen saturations, blood pressure, adequacy of pulmonary ventilation, and response to care were monitored throughout the procedure. The physical status of the patient was re-assessed after the procedure. After obtaining informed consent, the endoscope was passed under direct vision. Throughout the procedure, the patient's blood pressure, pulse, and oxygen saturations were monitored continuously. The Endoscope was introduced through the mouth, and advanced to the second part of duodenum. The upper GI endoscopy was accomplished without difficulty. The patient tolerated the procedure well. Moderate Sedation: Moderate (conscious) sedation was administered by the endoscopy nurse and supervised by the endoscopist. The patient's oxygen saturation, heart rate, blood pressure and response to care were monitored. Total physician intraservice time was 15 minutes. Moderate (conscious) sedation was administered by the endoscopy nurse and supervised by the endoscopist. The following parameters were monitored: oxygen saturation, heart rate, blood pressure, and response to care. Total physician intraservice time was 15 minutes. Scope In: 6:45:02 AM Scope Out: 6:53:51 AM Total Procedure Duration Time 0 hours 8 minutes 49 seconds Findings: Four columns of non-bleeding grade III varices were found in the middle third of the esophagus and in the lower third of the esophagus, 30 cm from the incisors. They were 5 mm in largest diameter. Stigmata of recent bleeding were evident and red marcus signs were present. Two bands were successfully placed with incomplete eradication of varices. There was no bleeding during the procedure. Moderate portal hypertensive gastropathy was found in the gastric body. The second portion of the duodenum was normal. Impression: - Recently bleeding grade III esophageal varices. Incompletely eradicated. Banded. - Portal hypertensive gastropathy. - Normal second portion of the duodenum. - No specimens collected. Recommendation: - Discharge patient to home. - Resume previous diet. - Continue present medications. - Return to my office. Procedure Code(s): --- Professional --- 51345, Esophagogastroduodenoscopy, flexible, transoral; with band ligation of esophageal/gastric varices 79719, 59, Moderate sedation services provided by the same physician or other qualified health lawn care technician performing the diagnostic or therapeutic service that the sedation supports, requiring the presence of an independent trained observer to assist in the monitoring of the patient's level of consciousness and physiological status; initial 15 minutes of intraservice time, patient age 5 years or older 41[address], 59, Moderate sedation services provided by the same physician or other qualified health lawn care technician performing the diagnostic or therapeutic service that the sedation supports, requiring the presence of an independent trained observer to assist in the monitoring of the patient's level of consciousness and physiological status; initial 15 minutes of intraservice time, patient age 5 years or older CPT copyright 2017 [employer]. All rights reserved. The codes documented in this report are preliminary and upon professional fee coder review may be revised to meet current compliance requirements. Minh Martinez DO 12/13/2021 7:00:34 AM This report has been signed electronically. Number of Addenda: 1 Note Initiated On: 12/13/2021 6:24 AM Addendum Number: 1 Addendum Date: 07/16/2022 6:47:49 AM MAC was used for sedation during this procedure. Minh Martinez DO 07/16/2022 6:47:53 AM This report has been signed electronically.
== END 2021-12-13 23:59 | disposition home or self-care (01) ==
LOC: EN 05:29 → AC 05:30
PROVIDERS: PCP Family Medicine; Referring Provider Family Medicine; Visit Provider Internal Medicine Gastroenterology
PROC: 0DJ08ZZ Inspection of Upper Intestinal Tract, Via Natural or Artificial Opening Endoscopic (ICD-10-PCS; CPT 43235; principal; 2021-12-13 06:25)
DX: I85.01 Esophageal varices with bleeding (principal); K76.6 Portal hypertension; K74.60 Unspecified cirrhosis of liver; I27.20 Pulmonary hypertension, unspecified; I48.91 Unspecified atrial fibrillation; E11.9 Type 2 diabetes mellitus without complications; Z86.2 Personal history of diseases of the blood and blood-forming organs and certain disorders involving the immune mechanism; E78.5 Hyperlipidemia, unspecified; Z79.84 Long term (current) use of oral hypoglycemic drugs; Z79.899 Other long term (current) drug therapy; Z79.01 Long term (current) use of anticoagulants; Z87.19 Personal history of other diseases of the digestive system; G25.81 Restless legs syndrome; Z78.0 Asymptomatic menopausal state; Z90.49 Acquired absence of other specified parts of digestive tract
CPT/HCPCS: 43244; 82962; J7120; J2405

== ENCOUNTER 2022-01-24 09:56 | Outpatient (CLI) | payer MEDICARE, OTHER, SELFPAY ==
[2022-01-24 11:12] LABS: Erythrocyte Sedimentation Rate 26 mm/hr (0-30)
[2022-01-24 11:17] LABS: Absolute Lymphocyte Count 0.62 X10^3/uL (0.83-4.51); Absolute Neutrophil Count 2.3 X10^3/uL (2.0-7.7); Basophil# 0.03 X10^3/uL; Basophil% 0.9 % (0-1); Hematocrit 26.4 % (37-47); Hemoglobin 8.9 g/dL (12.0-15.0); Lymphocyte # 0.62 X10^3/ul (0.83-4.51); Lymphocyte % 18.5 % (19-41); Mean Corp Hgb Conc 33.7 g/dL (32-36); Mean Corpuscular Hgb 30.7 pg (27.0-32.0); Mean Platelet Vol. 11.3 fl (6.2-12.0); Monocyte# 0.32 X10^3/uL; Monocyte% 9.5 % (0-10); NRBC Flagged by Analyzer 0 % (0-5); Neutrophil # 2.28 X10^3/uL (2.7-7.7); Neutrophil % 67.8 % (47-70); POSITIVE COUNT YES; Platelet Count 73 K/mm3 (150-450); RBC Distribution Width CV 13.8 % (11.6-14.6); RBC Distribution Width SD 46.3 fl (35.1-43.9); White Blood Count 3.4 K/mm3 (4.4-11.0)
[2022-01-24 11:18] LABS: Differential Indicated SCAN CRITERIA MET
[2022-01-24 11:30] LABS: Partial Thromboplast Time 27.2 Seconds (24.1-36.2); Prothrombin Time (Protime)PT. 12.7 SECONDS (11.7-14.9)
[2022-01-24 11:37] LABS: Platelet Estimate MOD DEC (ADEQ)
[2022-01-24 11:38] LABS: ALB/GLOB Ratio 0.8 RATIO (0.9-2.4); AST(SGOT) 33 U/L (15-37); Alanine Aminotransfer ALT/SGPT 31 U/L (13-56); Albumin, Serum 3.4 g/dL (3.2-5.0); Alkaline Phosphatase 140 U/L (45-117); Anion Gap 6 (5-15); BUN 18 mg/dL (7-18); BUN/Creat Ratio 11.5 RATIO (10-20); CRP 7.43 mg/L (0.0-3.0); Calcium,Total 9.8 mg/dL (8.5-10.1); Chloride 103 mmol/L (98-107); Creatinine, Serum 1.56 mg/dL (0.55-1.02); EST Glomerular Filtration Rate 35 mL/min (>60); Est Glom Filt Rate - Afr Amer 43 mL/min (>60); Ferritin 11 ng/mL (8-252); Globulin 4.3 g/dL (2.2-4.2); Glucose 129 mg/dL (74-106); LDH 272 U/L (84-246); Protein, Total 7.7 g/dL (6.4-8.2); Sodium Level 135 mmol/L (136-145)
[2022-01-24 12:43] LABS: HIV - WCH Non-Reactive (Nonreactive)
[2022-01-24 13:55] LABS: Hemoglobin A1c 7.7 % (3.8-5.6)
[2022-01-25 14:10] LABS: Anti-Centromere B Ab <0.2 AI (0.0-0.9); Anti-Chromatin <0.2 AI (0.0-0.9); Anti-Jo <0.2 AI (0.0-0.9); Anti-Scleroderma-70 AB <0.2 AI (0.0-0.9); RNP Ab <0.2 AI (0.0-0.9); SJOGREN'S Anti-SS-A test < 0.2 AI (0.0-0.9); SJOGREN'S Anti-SS-B test < 0.2 AI (0.0-0.9); Smith Ab <0.2 AI (0.0-0.9)
[2022-01-25 17:08] LABS: Angiotensin Convert Enzyme 84 U/L (14-82); Cytoplasmic Ab (C-ANCA) <1:20 titer (Neg:<1:20); HEPATITIS B SURFACE AG Negative (Negative); Hepatitis A IgM Antibody Negative (Negative); Hepatitis B Core AB IgM Negative (Negative)
[2022-01-25 18:22] LABS: Anti-dsDNA Ab <1 IU/mL (0-9)
[2022-01-25 18:42] LABS: Haptoglobin 96 mg/dL (37-355); Hep C Antibodies <0.1 s/co ratio (0.0-0.9); Perinuclear Ab (P-ANCA) <1:20 titer (Neg:<1:20)
== END 2022-01-24 23:59 | disposition home or self-care (01) ==
LOC: LAB 09:58
PROVIDERS: PCP Family Medicine; Referring Provider Internal Medicine Gastroenterology; Visit Provider Internal Medicine Gastroenterology
DX: K74.60 Unspecified cirrhosis of liver (principal); I48.91 Unspecified atrial fibrillation; E11.9 Type 2 diabetes mellitus without complications; R19.7 Diarrhea, unspecified
CPT/HCPCS: 36415; 80053; 80074; 82105; 82164; 82728; 83010; 83036; 83615; 85025; 85610; 85652; 85730; 86140; 86225; 86235; 86256; 86703

== ENCOUNTER 2022-03-01 07:55 | Day surgery (SDC) | payer MEDICARE, OTHER, SELFPAY ==
[2022-03-01] VITALS (7 sets, daily range): BP systolic 89–124; BP diastolic 36–65; PULSE 65–70; RESP 16; TEMP 36.1–36.2; O2SAT 99–100; BMI 25.0
[2022-03-01] MEDS: Lactated Ringers 1,000 ML 15 ML IV (08:32)
[2022-03-01 08:56] LABS: Bedside Glucose 164 mg/dL (74-106)
--- NOTE | 2022-03-01 09:25 | HP.PCM_ITS ---
History and Physical Date of Admission: 03/01/22 [facility] Chief Complaint: UGI bleed Details: JACQUELINE STILL, is a 66 F who presents to the office today for Follow up visit. Jacqueline established with this clinic through hospitalization at [facility]. She presented to [facility] ED 07.22.21 with hematemesis in the setting of Xarelto with a hemoglobin of 7.6. Gastroenterology consulted and EGD performed with findings as below. During hospitalization a new diagnosis of liver cirrhosis r/t SANCHEZ was found. Bloodwork for autoimmune labs, autoimmune hepatitis, Paul?s disease and liver cancer tumor marker were within normal limits. EGD 07.22.21 2 columns of nonbleeding grade 2 esophageal varices in the lower third of the esophagus with 4 bleeding angiodysplastic lesions in the anterior wall of the gastric body and 2 bleeding angiodysplastic lesions in the duodenum. EGD 07.24.21 found erythematous mucosa of the stomach and nonbleeding gastric ulcers with no stigmata of recent bleeding as well as duodenitis and chronic gastritis with portal hypertensive gastropathy. Esophageal banding performed for grade II esophageal varices. CT abd/pel 11.17.21 found diffuse contour of the liver consistent with cirrhotic changes and diffuse fatty infiltration of the liver. Small amount of fluid in keeping with ascites. Dilation of proximal common bile duct with transverse dimension of 1.6cm. Mild splenomegaly. Varicosities seen in splenic hilum. Small hiatal hernia. Diverticulosis. US abd and elastography performed 11.20.21 with liver measurement 13.5cm with heterogeneous echogenicity of the liver with a stiffness of 18 kPa compatible with F4. EGD 12.13.21 found recently bleeding grade III esophageal varices, banded; portal hypertensive gastropathy. No specimens collected. MELD scores: 10.13.21 16 11.06.21 11 02.05.22 11 Medications currently prescribed by this clinic include colestipol 1gram, protonix 40mg BID, 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mg BID. Plan last visit 11.06.21: Cirrhosis ? Meld goal is 6, currently 11. Recommend repeat EGD and CT scan. Reports that she is doing well since last visit. Denies brain fog, confusion, balance issues, jaundice, pruritis. Continues taking protonix and ursodiol without adverse effects. Colestipol continued for diarrhea and takes more on an as needed basis. Diarrhea is more related to foods and occurs about once a week. Salads and pizza are a trigger. Would like to explore possible changes to her medication to something more PRN. ROS Const Constitutional: No anorexia, fatigue, fever(s), weight change or sleep problems Eyes Eyes: No change in vision ENT ENT: No abnormal hearing, difficulty swallowing, mouth lesions, tongue swelling or throat swelling Resp Respiratory: No cough or shortness of breath Cardio Cardiology: No chest pain at rest, chest pain with exertion, shortness of breath or dyspnea on exertion Gastro GI: No difficulty swallowing Genitourinary-Female: No difficulty urinating or burning urination Musc Musculoskeletal: No joint pain, joint swelling, muscle weakness or decreased muscle mass Skin Skin: No hair loss in leg, yellowing of the eye, itchy eyes, rash, skin ulcer or skin swelling Neuro Neurology: No abnormal hearing, abnormal movements, confusion, unsteady gait/balance or memory loss Psych Psychiatric: No anxiety, No confusion and No memory loss Endo Endocrine: No fatigue or weight change Aller/Imm Allergy/Immunologic: No itchy eyes, throat swelling or tongue swelling Kyle/Lymp Hematologic/Lymphatic: No easy bleeding, easy bruising or enlarged lymph nodes Exam Const General: cooperative and comfortable Nutritional Appearance: average body habitus and well nourished HENAK Head: normal to inspection Ears: hearing grossly normal bilaterally Nose: external nose normal Face and sinus: normal facial exam Mouth: oral mucosae normal Throat: posterior oropharynx normal Eyes General: appearance normal, both eyes and all related structures Neck Neck: normal visual inspection Chest Chest palpation & inspection: normal inspection of the chest and normal palpation of entire chest wall Resp Effort & Inspection: normal respiratory effort Auscultation: Bilateral: Clear to Auscultation Cardio Palpation: normal PMI Rate: regular rate Rhythm: regular rhythm GI Inspection: normal to inspection Auscultation: normal bowel sounds Percussion: normal to percussion Palpation: no hepatosplenomegaly Skin General: no rashes or lesions noted Neuro General: patient alert Extrem General: normal to inspection Psych Affect: normal affect Quality Reporting Tobacco Screening ([facility] 138) Smoking Status: Never smoker Assessment and Plan Assessment and Plan (1) Cirrhosis: Status: Acute Orders: Orders: Albumin, Serum Today Comprehensive Metabolic Profil Today CRP Today LDH Today Prothrombin Time w/INR Today CBC W/Diff, Automated Today Erythrocyte Sed Rate Today Ammonia Today Plan - Dr. Wilkinson Friend, DO: Her meld is down from 22- 16-11 and is currently 10. She is doing very well. Her only issue at this time is her kidney function has been going up and down. They have been monitoring her medicines and trying to eliminate or reduce all renal toxic agents. We have decreased her pantoprazole down to 40 mg once a day. We will be titrating that all way down to an H2 receptor guido. She had severe gastritis and severe erosive esophagitis so we were giving her PPI therapy for that. She also had taken Carafate therapy for severe gastritis which is now off. She is not have any abdominal pain, bloating or indigestion. She recently underwent banding of 2 esophageal varices. She has had one other banding session. She is on beta-guido therapy and we will schedule her for repeat banding procedure in approximately 3 months. In approximately 6 months we will repeat her alpha-fetoprotein and imaging. Her recent ultrasound and CT scan of the abdomen pelvis did not show any liver masses. It did show mild splenomegaly which is likely secondary to portal hypertension. Plan Details Other Medications: Changed: From: pantoprazole (Protonix) 40 mg PO BID 90 tabs 3RF To: pantoprazole (Protonix) Ninety day fill. Take one tab once a day. 40 mg PO DAILY 90 tabs 3RF From: 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 mg PO BID 90 tabs 3RF To: ursodiol ninety day fill, take two times a day 250 mg PO BID 180 tabs 3RF I have re-examined the patient. There are no clinical changes since date of exam.
--- NOTE | 2022-03-01 09:35 | OP.EGD_ITS ---
Patient Name: Jacqueline Morse Procedure Date: 03/01/2022 9:06 AM Date of : 1955 Age: 66 Procedure: Upper GI endoscopy Indications: Cirrhosis rule out esophageal varices Providers: Minh Martinez DO Medicines: Monitored Anesthesia Care Patient Profile: This is a 66 year old female. Refer to note in patient chart for documentation of history and physical. Complications: No immediate complications. Procedure: Pre-Anesthesia Assessment: - Prior to the procedure, a History and Physical was performed, and patient medications and allergies were reviewed. The patient is competent. The risks and benefits of the procedure and the sedation options and risks were discussed with the patient. All questions were answered and informed consent was obtained. Patient identification and proposed procedure were verified by the physician in the pre-procedure area. Mental Status Examination: alert and oriented. Airway Examination: normal oropharyngeal airway and neck mobility. Respiratory Examination: clear to auscultation. CV Examination: normal. Prophylactic Antibiotics: The patient does not require prophylactic antibiotics. Prior Anticoagulants: The patient has taken no previous anticoagulant or antiplatelet agents. ASA Grade Assessment: II - A patient with mild systemic disease. After reviewing the risks and benefits, the patient was deemed in satisfactory condition to undergo the procedure. The anesthesia plan was to use moderate sedation / analgesia (conscious sedation). Immediately prior to administration of medications, the patient was re-assessed for adequacy to receive sedatives. The heart rate, respiratory rate, oxygen saturations, blood pressure, adequacy of pulmonary ventilation, and response to care were monitored throughout the procedure. The physical status of the patient was re-assessed after the procedure. After obtaining informed consent, the endoscope was passed under direct vision. Throughout the procedure, the patient's blood pressure, pulse, and oxygen saturations were monitored continuously. The Endoscope was introduced through the mouth, and advanced to the second part of duodenum. The upper GI endoscopy was accomplished without difficulty. The patient tolerated the procedure well. Scope In: 9:18:11 AM Scope Out: 9:27:30 AM Total Procedure Duration Time 0 hours 9 minutes 19 seconds Findings: Grade II varices were found in the lower third of the esophagus. They were 5 mm in largest diameter. Two bands were successfully placed with incomplete eradication of varices. The entire examined stomach was normal. A few erosions without bleeding were found in the duodenal bulb. Impression: - Grade II esophageal varices. Incompletely eradicated. Banded. - Normal stomach. - Duodenal erosions without bleeding. - No specimens collected. Recommendation: - Discharge patient to home. - Resume previous diet. - Continue present medications. Procedure Code(s): --- Professional --- 65819, Esophagogastroduodenoscopy, flexible, transoral; with band ligation of esophageal/gastric varices CPT copyright 2017 [employer]. All rights reserved. The codes documented in this report are preliminary and upon computer language coder review may be revised to meet current compliance requirements. Minh Martinez DO 03/01/2022 9:34:48 AM This report has been signed electronically. Number of Addenda: 1 Note Initiated On: 03/01/2022 9:06 AM Addendum Number: 1 Addendum Date: 07/27/2022 6:30:16 AM MAC was used as sedation for this procedure. Minh Martinez DO 07/27/2022 6:30:20 AM This report has been signed electronically.
--- NOTE | 2022-03-01 09:36 | OP.CCLET_ITS ---
07/27/2022 Billy Wong MD Re : Upper GI endoscopy procedure for Jacqueline Morse Dear Dr. Wong This procedure was performed on February. My impressions and recommendations are as follows: Impressions : - Grade II esophageal varices. Incompletely eradicated. Banded. - Normal stomach. - Duodenal erosions without bleeding. - No specimens collected. Recommendations : - Discharge patient to home. - Resume previous diet. - Continue present medications. My findings are described in the full procedure note, which is enclosed. If I can be of further assistance, please feel free to contact me at . Sincerely, Minh Martinez, 03/01/2022 9:34:48 AM This report has been signed electronically.
[2022-03-01 09:51] LABS: Bedside Glucose 145 mg/dL (74-106)
== END 2022-03-01 10:13 | disposition home or self-care (01) ==
LOC: EN 07:56 → AC 07:57
PROVIDERS: PCP Family Medicine; Referring Provider Family Medicine; Visit Provider Internal Medicine Gastroenterology
PROC: 0DJ08ZZ Inspection of Upper Intestinal Tract, Via Natural or Artificial Opening Endoscopic (ICD-10-PCS; CPT 43235; principal; 2022-03-01 08:55)
DX: I85.10 Secondary esophageal varices without bleeding (principal); K74.60 Unspecified cirrhosis of liver; I27.20 Pulmonary hypertension, unspecified; I48.91 Unspecified atrial fibrillation; E11.9 Type 2 diabetes mellitus without complications; K26.9 Duodenal ulcer, unspecified as acute or chronic, without hemorrhage or perforation; I10 Essential (primary) hypertension; E78.5 Hyperlipidemia, unspecified; Z79.899 Other long term (current) drug therapy; Z79.84 Long term (current) use of oral hypoglycemic drugs; Z86.2 Personal history of diseases of the blood and blood-forming organs and certain disorders involving the immune mechanism; Z87.19 Personal history of other diseases of the digestive system; Z78.0 Asymptomatic menopausal state; G25.81 Restless legs syndrome
CPT/HCPCS: 43244; 82962; J7120; J2405

== ENCOUNTER → 2022-03-08 | Outpatient (CLI) | payer MEDICARE, OTHER, SELFPAY ==
[2022-03-08 13:34] LABS: Erythrocyte Sedimentation Rate 26 mm/hr (0-30)
[2022-03-08 13:38] LABS: International Normalized Ratio 1.1; Prothrombin Time (Protime)PT. 13.6 SECONDS (11.7-14.9)
[2022-03-08 13:39] LABS: Absolute Lymphocyte Count 0.73 X10^3/uL (0.83-4.51); Absolute Neutrophil Count 2.6 X10^3/uL (2.0-7.7); Basophil# 0.01 X10^3/uL; Basophil% 0.3 % (0-1); Eosinophil# 0.11 X10^3/uL; Eosinophils% 2.9 % (0-5); Hematocrit 26.9 % (37-47); Hemoglobin 8.8 g/dL (12.0-15.0); Lymphocyte # 0.73 X10^3/ul (0.83-4.51); Lymphocyte % 19.4 % (19-41); Mean Corp Hgb Conc 32.7 g/dL (32-36); Mean Corpuscular Hgb 29.8 pg (27.0-32.0); Mean Corpuscular Volume 91.2 fL (81-99); Mean Platelet Vol. 10.6 fl (6.2-12.0); NRBC Flagged by Analyzer 0 % (0-5); Neutrophil # 2.59 X10^3/uL (2.7-7.7); Neutrophil % 68.9 % (47-70); POSITIVE COUNT YES; Platelet Count 76 K/mm3 (150-450); RBC Distribution Width CV 13.5 % (11.6-14.6); RBC Distribution Width SD 44.7 fl (35.1-43.9); Red Blood Count 2.95 M/mm3 (4.2-5.4); White Blood Count 3.8 K/mm3 (4.4-11.0)
[2022-03-08 14:01] LABS: ALB/GLOB Ratio 0.8 RATIO (0.9-2.4); AST(SGOT) 29 U/L (15-37); Alanine Aminotransfer ALT/SGPT 31 U/L (13-56); Albumin, Serum 3.4 g/dL (3.2-5.0); Alkaline Phosphatase 98 U/L (45-117); Anion Gap 8 (5-15); BUN 20 mg/dL (7-18); BUN/Creat Ratio 13.2 RATIO (10-20); CRP 5.53 mg/L (0.0-3.0); Calcium,Total 9.6 mg/dL (8.5-10.1); Chloride 103 mmol/L (98-107); Creatinine, Serum 1.52 mg/dL (0.55-1.02); EST Glomerular Filtration Rate 36 mL/min (>60); Est Glom Filt Rate - Afr Amer 44 mL/min (>60); Globulin 4.2 g/dL (2.2-4.2); Glucose 122 mg/dL (74-106); LDH 225 U/L (84-246); Potassium 3.8 mmol/L (3.5-5.1); Protein, Total 7.6 g/dL (6.4-8.2); Sodium Level 136 mmol/L (136-145)
== END | disposition home or self-care (01) ==
LOC: LAB 13:07
PROVIDERS: PCP Family Medicine; Referring Provider Internal Medicine Gastroenterology; Visit Provider Internal Medicine Gastroenterology
DX: K74.60 Unspecified cirrhosis of liver (principal); I48.91 Unspecified atrial fibrillation
CPT/HCPCS: 36415; 80053; 82140; 83615; 85025; 85610; 85652; 86140

== ENCOUNTER → 2022-05-14 | Outpatient (CLI) | payer MEDICARE, OTHER, SELFPAY ==
--- NOTE | 2022-05-14 08:21 | US_ITS ---
STUDY: ABDOMINAL ULTRASOUND - RIGHT UPPER QUADRANT REASON FOR VISIT: Female, 66 years old CIRRHOSIS TECHNIQUE: Ultrasound evaluation of the right upper quadrant was performed with real-time and static daly-scale imaging. TECHNICAL QUALITY: Adequate. COMPARISON: Comparison is made with prior study dated 11/20/2021. FINDINGS: Liver: The liver measures 13.5 cm. There is a heterogeneous echogenicity of the liver. Lobular contour of the liver. The bile ducts are within normal limits. There is hepatic color flow. The direction of portal flow is hepatopetal. There is no demonstrated mass lesion. Small amount of perihepatic fluid. Gallbladder: The patient is status post cholecystectomy. Common Bile Duct (C.B.D.): The common bile duct is dilated and measures 16.1 mm. Pancreas: Normal size of the head, body and tail of the pancreas. There is normal echogenicity of the pancreas. There is no demonstrated pancreatic mass or cyst. Right Kidney: Normal size of the right kidney. The right kidney measures 9.6 cm x 4.9 ADRIEL by 4 cm. Normal renal cortex. The right cortex measures 1.0 cm. There is no demonstrated renal mass or cyst. There is no right hydronephrosis. US/Abdomen Limited IMPRESSION: Heterogeneous echotexture of the liver with nodular hepatic contour. Small amount of perihepatic fluid. Status post cholecystectomy. Common bile duct measures 16.1 mm. Electronically Signed: Hans Benz MD at 12:14 EDT ,
[2022-05-14 10:51] LABS: Absolute Lymphocyte Count 0.71 X10^3/uL (0.83-4.51); Absolute Neutrophil Count 1.9 X10^3/uL (2.0-7.7); Basophil# 0.02 X10^3/uL; Basophil% 0.7 % (0-1); Eosinophil# 0.08 X10^3/uL; Eosinophils% 2.7 % (0-5); Hematocrit 27.4 % (37-47); Hemoglobin 8.8 g/dL (12.0-15.0); Lymphocyte # 0.71 X10^3/ul (0.83-4.51); Lymphocyte % 23.7 % (19-41); Mean Corp Hgb Conc 32.1 g/dL (32-36); Mean Corpuscular Hgb 29.5 pg (27.0-32.0); Mean Corpuscular Volume 91.9 fL (81-99); Mean Platelet Vol. 11.3 fl (6.2-12.0); Monocyte# 0.22 X10^3/uL; Monocyte% 7.4 % (0-10); NRBC Flagged by Analyzer 0 % (0-5); Neutrophil # 1.94 X10^3/uL (2.7-7.7); Neutrophil % 64.8 % (47-70); POSITIVE COUNT YES; Platelet Count 69 K/mm3 (150-450); RBC Distribution Width CV 15.7 % (11.6-14.6); RBC Distribution Width SD 51.8 fl (35.1-43.9); Red Blood Count 2.98 M/mm3 (4.2-5.4)
[2022-05-14 10:54] LABS: Prothrombin Time (Protime)PT. 13.2 SECONDS (11.7-14.9)
[2022-05-14 11:17] LABS: AST(SGOT) 36 U/L (15-37); Alanine Aminotransfer ALT/SGPT 34 U/L (13-56); Albumin, Serum 3.3 g/dL (3.2-5.0); Alkaline Phosphatase 93 U/L (45-117); Anion Gap 7 (5-15); BUN 17 mg/dL (7-18); BUN/Creat Ratio 13.5 RATIO (10-20); Bilirubin, Direct 0.23 mg/dL (0.00-0.30); Calcium,Total 10.5 mg/dL (8.5-10.1); Chloride 102 mmol/L (98-107); Creatinine, Serum 1.26 mg/dL (0.55-1.02); EST Glomerular Filtration Rate 45 mL/min (>60); Est Glom Filt Rate - Afr Amer 55 mL/min (>60); Globulin 4.1 g/dL (2.2-4.2); Glucose 93 mg/dL (74-106); Potassium 3.8 mmol/L (3.5-5.1); Protein, Total 7.4 g/dL (6.4-8.2); Sodium Level 138 mmol/L (136-145)
== END | disposition home or self-care (01) ==
PROVIDERS: PCP Family Medicine
DX: K74.60 Unspecified cirrhosis of liver (principal)
CPT/HCPCS: 36415; 76705; 80048; 80076; 82105; 85025; 85610

== ENCOUNTER 2022-05-29 05:53 | Day surgery (SDC) | payer MEDICARE, OTHER, SELFPAY ==
[2022-05-29 06:41] VITALS: BP 134/62; PULSE 69; RESP 16; TEMP 36.6; O2SAT 100; BMI 25.8
--- NOTE | 2022-05-29 07:00 | EGD_PTH ---
PATIENT: ROBBIN STILL LOC: EN U#:[id number] AGE/SX: 66/F ROOM: RE05/29/[address]: Dr. Minh Martinez DO : 1955 BED: DIS: 05/29/2022 SPEC #: [id number] RECD: 05/29/22 08:31 STATUS: REVA RERonnie #: [id number] JACOB: 05/29/22 07:[address]: Minh Martinez DEPT: SURGICAL PATHOLOGY RECD BY: Fannie Ramirez ENTERED: 05/29/22 09:21 SP TYPE: EGD BIOPSY [facility] DR: Dr. Billy Wong MD Tissues: Duodenum, NOS Procedures: Surgery Specimen Level IV HEADER OPERATION: EGD ([facility] [place]) PRE-OP DIAGNOSIS: Cirrhosis TISSUE SUBMITTED: Duodenal biopsy MICROSCOPIC DIAGNOSIS Duodenum, biopsy: Minimal acute duodenitis. See comment. AM:david 05/30/2022 COMMENT Rare neutrophils are seen in glandular epithelium. Clinical correlation is suggested. MICROSCOPIC DESCRIPTION Slides are reviewed. GROSS DESCRIPTION Received in fixative is one container labeled with the patient's name and designated duodenal biopsy. The specimen consists of one irregular fragment of light schultz soft tissue that measures 0.3 x 0.3 x 0.1 cm. The specimen is totally submitted in one cassette. / SJ:david 05/29/2022 TC:2 CPT: 46854
--- NOTE | 2022-05-29 07:03 | PCM.HP.BLA ---
History and Physical Date of Admission: 05/29/22 JACQUELINE STILL, is a 66 F who presents to the office today for f/u EGD, Dr. Friend banded 2 more esophageal varices.? 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 She is stable.? She has some questions following appointment with primary care??she asks if it is okay to add calcium 600 twice daily, to increase vitamin D to 2000 units daily, and should she resume iron supplement.? She tried ferrous sulfate once a day but had too much stomach upset.? Her hemoglobin hangs out in the 8 range.? Recent iron level at [facility] was 40. She has no hepatic encephalopathy, which her confirms today.? She has no jaundice, no pruritus, no bleeding, no ascites.? She tends to have loose stools, even when she was taking ferrous sulfate 3 times daily.? She uses colestipol as needed with good results but not quick results.? She loves salads and raw vegetables but cannot tolerate them, they cause diarrhea.? She has 2-3 BMs per day.? She has never needed lactulose. At last visit pantoprazole 40 mg was decreased from twice a day to once a day due to declining kidney function. Jacqueline established with this clinic through hospitalization at [facility] June 2021. She presented to [facility] ED 07.22.21 with hematemesis in the setting of Xarelto with a hemoglobin of 7.6. Gastroenterology consulted and EGD performed with findings as below. During hospitalization a new diagnosis of liver cirrhosis r/t HASTINGS was found. Bloodwork for autoimmune labs, autoimmune hepatitis, Paul?s disease and liver cancer tumor marker were within normal limits. EGD 07.22.21 2 columns of nonbleeding grade 2 esophageal varices in the lower third of the esophagus with 4 bleeding angiodysplastic lesions in the anterior wall of the gastric body and 2 bleeding angiodysplastic lesions in the duodenum. EGD 07.24.21 found erythematous mucosa of the stomach and nonbleeding gastric ulcers with no stigmata of recent bleeding as well as duodenitis and chronic gastritis with portal hypertensive gastropathy. Esophageal banding performed for grade II esophageal varices. ? EGD 12.13.21 found recently bleeding grade III esophageal varices, banded; portal hypertensive gastropathy. No specimens collected. EGD 03/01/2022: Grade 2 esophageal varices banded, incompletely eradicated.? Normal stomach.? Duodenal erosions without bleeding noted specimen collected. CT abd/pel 11.17.21 found diffuse contour of the liver consistent with cirrhotic changes and diffuse fatty infiltration of the liver. Small amount of fluid in keeping with ascites. Dilation of proximal common bile duct with transverse dimension of 1.6cm. Mild splenomegaly. Varicosities seen in splenic hilum. Small hiatal hernia. Diverticulosis. US abd and elastography performed 11.20.21 with liver measurement 13.5cm with heterogeneous echogenicity of the liver with a stiffness of 18 kPa compatible with F4. MELD scores: 10.. 16 11.06.21 11 .09.18 11 03/08/2022 13 Medications currently prescribed by this clinic include colestipol 1gram, protonix 40mg every morning, 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mg BID.? She was already on hydrochlorothiazide 12.5 mg daily for hypertension, she has no ascites.? She reports her A1c is stable, that the plan is to increase glimepiride from 2 to 4 mg daily. ROS Const Constitutional: No fatigue ENT ENT: No difficulty swallowing Gastro GI: Positive for diarrhea; No abdominal pain, belching, bloating, change in bowel habits, change in stool character, coffee ground emesis, constipation, cramping, heartburn, difficulty swallowing, feeling full early, excessive flatus, incontinent of stools, Vomiting blood/hematemesis, Blood in stool, loose stools, Black,tarry stools, nausea/dyspepsia, pain with swallowing, vomiting or other Musc Musculoskeletal: Positive for abnormal gait; No joint pain Skin Skin: No yellowing of the eye or itchy eyes Neuro Neurology: Positive for abnormal gait Psych Psychiatric: No anxiety and No depression Endo Endocrine: No fatigue Aller/Imm Allergy/Immunologic: No itchy eyes Kyle/Lymp Hematologic/Lymphatic: No easy bleeding or easy bruising Exam Const General: cooperative, comfortable, no acute distress, well developed and well groomed Eyes Conjunctivae: conjunctivae normal Sclera: sclerae normal GI Inspection: normal to inspection Palpation: soft Skin General: no jaundice Neuro General: patient alert, patient awake and patient oriented x3 Extrem General: no pedal edema Psych Mood: euthymic mood Affect: normal affect Quality Reporting Tobacco Screening ([facility] 138) Smoking Status: Never smoker Assessment and Plan Assessment and Plan (1) Cirrhosis: ?Status:?Acute ?Plan - Liz Braswell NP, BUILD TECHNICIAN-C: 66-year-old female with Hastings related cirrhosis.? She is stable.? She has an appointment on April 12 at [facility] liver transplant center for her initial visit.? Agree with vitamin D 2000 units daily, calcium 600 twice daily.? Recommend she try ferrous gluconate start with once a day take with vitamin C, increase to twice daily if tolerated.? Case discussed with Dr. Martienz.? We will get her scheduled for her next EGD for further esophageal banding, that will be in 3 months.? She can continue colestipol as needed.? Continue hydrochlorothiazide, ursodiol.? Follow-up 2 weeks after EGD. I have re-examined the patient. There are no clinical changes since date of exam.
[2022-05-29 07:25] VITALS: BP 134/62; BP 95/49; PULSE 76; RESP 16; TEMP 36.6; O2SAT 99
--- NOTE | 2022-05-29 07:25 | OP.EGD_ITS ---
Patient Name: Jacqueline Morse Procedure Date: 05/29/2022 7:03 AM Date of : 1955 Age: 66 Procedure: Upper GI endoscopy Indications: 2nd degree variceal surveillance (following bleed and completed eradication) Providers: Minh Martinez DO Referring MD: Billy Wong MD Medicines: Monitored Anesthesia Care Patient Profile: This is a 66 year old female. Refer to note in patient chart for documentation of history and physical. Patient has symptoms. Complications: No immediate complications. Procedure: Pre-Anesthesia Assessment: - Prior to the procedure, a History and Physical was performed, and patient medications and allergies were reviewed. The risks and benefits of the procedure and the sedation options and risks were discussed with the patient. All questions were answered and informed consent was obtained. Patient identification and proposed procedure were verified by the physician in the pre-procedure area. Mental Status Examination: alert and oriented. Airway Examination: normal oropharyngeal airway and neck mobility. Respiratory Examination: clear to auscultation. CV Examination: normal. Prophylactic Antibiotics: The patient does not require prophylactic antibiotics. Prior Anticoagulants: The patient has taken no previous anticoagulant or antiplatelet agents. After reviewing the risks and benefits, the patient was deemed in satisfactory condition to undergo the procedure. The anesthesia plan was to use moderate sedation / analgesia (conscious sedation). Immediately prior to administration of medications, the patient was re-assessed for adequacy to receive sedatives. The heart rate, respiratory rate, oxygen saturations, blood pressure, adequacy of pulmonary ventilation, and response to care were monitored throughout the procedure. The physical status of the patient was re-assessed after the procedure. After obtaining informed consent, the endoscope was passed under direct vision. Throughout the procedure, the patient's blood pressure, pulse, and oxygen saturations were monitored continuously. The gastroscope was introduced through the mouth, and advanced to the second part of duodenum. The upper GI endoscopy was accomplished without difficulty. The patient tolerated the procedure well. Scope In: 7:15:44 AM Scope Out: 7:19:48 AM Total Procedure Duration Time 0 hours 4 minutes 4 seconds Findings: Small (< 5 mm) varices were found in the lower third of the esophagus. They were 5 mm in largest diameter. Mild portal hypertensive gastropathy was found in the cardia, in the gastric fundus and in the gastric body. Patchy mild inflammation characterized by granularity was found in the duodenal bulb and in the first portion of the duodenum. Biopsies were taken with a cold forceps for histology. Verification of patient identification for the specimen was done. Estimated blood loss was minimal. Impression: - Small (< 5 mm) esophageal varices. - Portal hypertensive gastropathy. - Duodenitis. Biopsied. Recommendation: - Discharge patient to home. - Resume previous diet. - Continue present medications. - Repeat upper endoscopy in 4 months for surveillance. Procedure Code(s): --- Professional --- 13519, Esophagogastroduodenoscopy, flexible, transoral; with biopsy, single or multiple CPT copyright 2017 [employer]. All rights reserved. The codes documented in this report are preliminary and upon information technology architect review may be revised to meet current compliance requirements. Minh Martinez DO 05/29/2022 7:25:24 AM This report has been signed electronically. Number of Addenda: 1 Note Initiated On: 05/29/2022 7:03 AM Addendum Number: 1 Addendum Date: 08/02/2022 6:36:48 AM MAC was used as sedation for this procedure. Minh Martinez DO 08/02/2022 6:36:52 AM This report has been signed electronically.
--- NOTE | 2022-05-29 07:26 | OP.CCLET_ITS ---
08/02/2022 Billy Wong MD Re : Upper GI endoscopy procedure for Jacqueline Morse Dear Dr. Wong This procedure was performed on Sunday, May 29, 2022. My impressions and recommendations are as follows: Impressions : - Small (< 5 mm) esophageal varices. - Portal hypertensive gastropathy. - Duodenitis. Biopsied. Recommendations : - Discharge patient to home. - Resume previous diet. - Continue present medications. - Repeat upper endoscopy in 4 months for surveillance. My findings are described in the full procedure note, which is enclosed. If I can be of further assistance, please feel free to contact me at . Sincerely, Minh Martinez, 05/29/2022 7:25:24 AM This report has been signed electronically.
[2022-05-29 07:30] VITALS: BP 134/62; BP 93/51; PULSE 75; RESP 16; O2SAT 98
[2022-05-29 07:35] VITALS: BP 104/53; BP 134/62; RESP 74; O2SAT 100
[2022-05-29 07:40] VITALS: BP 104/61; BP 134/62; PULSE 75; RESP 16; TEMP 36.3; O2SAT 100
[2022-05-29 07:51] VITALS: BP 134/62
[2022-05-29 10:00] LABS: Bedside Glucose 95 mg/dL (74-106)
== END 2022-05-29 08:11 | disposition home or self-care (01) ==
LOC: EN 05:53 → AC 05:54
PROVIDERS: PCP Family Medicine; Referring Provider Family Medicine; Visit Provider Internal Medicine Gastroenterology
PROC: 0DJ08ZZ Inspection of Upper Intestinal Tract, Via Natural or Artificial Opening Endoscopic (ICD-10-PCS; CPT 43235; principal; 2022-05-29 06:55)
DX: I85.10 Secondary esophageal varices without bleeding (principal); K76.6 Portal hypertension; I27.20 Pulmonary hypertension, unspecified; I48.91 Unspecified atrial fibrillation; D69.6 Thrombocytopenia, unspecified; E11.9 Type 2 diabetes mellitus without complications; K75.81 Nonalcoholic steatohepatitis (NASH); K29.80 Duodenitis without bleeding; I10 Essential (primary) hypertension; E78.5 Hyperlipidemia, unspecified; Z79.84 Long term (current) use of oral hypoglycemic drugs; Z79.899 Other long term (current) drug therapy; Z87.19 Personal history of other diseases of the digestive system; Z78.0 Asymptomatic menopausal state; Z90.49 Acquired absence of other specified parts of digestive tract; K31.89 Other diseases of stomach and duodenum
CPT/HCPCS: 43239; 82962; 88305; J7120; J2405

== ENCOUNTER 2022-09-10 06:53 | Day surgery (SDC) | payer MEDICARE, OTHER, SELFPAY ==
[2022-09-10 07:21] VITALS: BP 124/59; PULSE 79; RESP 18; TEMP 36.2; O2SAT 100; BMI 25.7
--- NOTE | 2022-09-10 07:30 | HP.PCM_ITS ---
History and Physical Date of Admission: 09/10/22 ROBBNI STILL, is a 66 F who presents to the office today for discussion of EGD findings. EGD performed to f/u esophageal varices secondary to SANCHEZ related cirrhosis. She is upset today since she thought she was seeing Dr Martinez. She is also frustrated that no one contacted her with US and lab results that were performed at [facility] but ordered by [facility]. She had initial visit with [facility] liver transplant physician Dr Mcclure on 04/12/22; she has a 6 mo f/u with him in September. Per his recommendation her metoprolol was changed to carvedilol. She has been immunized against hep A, hep B, shingles, covid, pneumonia. 05/2022 EGD: small esophageal varices, portal hypertensive gastropathy, duodeni tis. Dr Martinez recommends repeat upper endoscopy in 4 months. Duodenal inflammation is secondary to cirrhosis per Dr Martinez. 05/14/22 hgb 8.8, plts 69, INR 1.0, bilirubin 0.6, creat 1.26, Na 138, AFP 6.0. MELD-Na 9 She has no hepatic encephalopathy.? She has no jaundice, no pruritus, no bleeding, no ascites.? She tends to have loose stools. She notes increased fecal urgency from ursodiol.? She uses colestipol as needed with good results but not quick results.? She loves salads and raw vegetables but cannot tolerate them, they cause diarrhea.? She has 2-3 BMs per day.? She has never needed lactulose. Takes pantoprazole 40 mg once a day. Robbin established with this clinic through hospitalization at [facility] June 2021. She presented to [facility] ED 9.. with hematemesis in the setting of Xarelto with a hemoglobin of 7.6. Gastroenterology consulted and EGD performed with findings as below. During hospitalization a new diagnosis of liver cirrhosis r/t SANCHEZ was found. Bloodwork for autoimmune labs, autoimmune hepatitis, Paul?s disease and liver cancer tumor marker were within normal limits. 05/14/22 US/Abdomen Limited IMPRESSION: Heterogeneous echotexture of the liver with nodular hepatic contour.? Small amount of perihepatic fluid. Status post cholecystectomy.? Common bile duct measures 16.1 mm. ? 05/29/22 EGD Impression: ? - Small (< 5 mm) esophageal varices. ? - Portal hypertensive gastropathy. ? - Duodenitis. Biopsied. MICROSCOPIC DIAGNOSIS Duodenum, biopsy: ?Minimal acute duodenitis. ?See comment. Rare neutrophils are seen in glandular epithelium.? Clinical correlation is suggested. ROS Const Constitutional: No fatigue ENT ENT: No difficulty swallowing Gastro GI: Positive for diarrhea; No abdominal pain, belching, bloating, change in bowel habits, change in stool character, coffee ground emesis, constipation, cramping, heartburn, difficulty swallowing, feeling full early, excessive flatus, incontinent of stools, Vomiting blood/hematemesis, Blood in stool, loose stools, Black,tarry stools, nausea/dyspepsia, pain with swallowing, vomiting or other Musc Musculoskeletal: Positive for abnormal gait; No joint pain Skin Skin: No yellowing of the eye or itchy eyes Neuro Neurology: Positive for abnormal gait Psych Psychiatric: No anxiety and No depression Endo Endocrine: No fatigue Aller/Imm Allergy/Immunologic: No itchy eyes Kyle/Lymp Hematologic/Lymphatic: No easy bleeding or easy bruising Exam Const General: well developed and well groomed Orientation: alert, awake and oriented x3 Eyes Sclera: sclerae normal Resp Effort & Inspection: normal respiratory effort Skin General: no jaundice Quality Reporting Tobacco Screening ([facility] 138) Smoking Status: Never smoker Assessment and Plan Assessment and Plan (1) Cirrhosis: ?Status:?Acute ?Plan: She would like to see Dr Martinez for her appts We reviewed her EGD findings, benign biopsy result MELD-Na is 9 Agree avoid raw shellfish/seafood due to risk of vibrio toxin She asked re ursodiol, thin bile, Dr Martinez recommends she continue it Order to update q3mos labs in July Update RUQ US in 10/2021; will also update labs then including AFP Repeat EGD in mid-late August before she travels to [place] She has f/u at [facility] liver transplant September ? ? ? Orders: Orders Abdomen Complete Today K74.60 - Unspecified cirrhosis of liver ? Comprehensive Metabolic Profil Today K74.60 - Unspecified cirrhosis of liver ? Prothrombin Time w/INR Today I48.91 - Unspecified atrial fibrillation, K74.60 - Unspecified cirrhosis of liver ? CBC W/Diff, Automated Today I48.91 - Unspecified atrial fibrillation, K74.60 - Unspecified cirrhosis of liver ? Medications: Changed From colestipol 1 g? PO PRN PRN Diarrhea ? ? To colestipol 1 g? PO DAILY PRN 90 tabs 3RF Diarrhea ? ? I have examined the patient and the H&P has been reviewed. There are no clinical changes since date of exam.
[2022-09-10] MEDS: Lactated Ringers 1,000 ML 15 ML IV (07:33)
[2022-09-10 07:55] LABS: Bedside Glucose 117 mg/dL (74-106)
[2022-09-10 08:00] VITALS: BP 104/52; BP 124/59; PULSE 72; RESP 17; TEMP 36.7; O2SAT 100
[2022-09-10 08:05] VITALS: BP 124/59; BP 94/56; PULSE 74; RESP 16; O2SAT 99
--- NOTE | 2022-09-10 08:06 | OP.EGD_ITS ---
Patient Name: Jacqueline Morse Procedure Date: 09/10/2022 7:24 AM Date of : 1955 Age: 66 Procedure: Upper GI endoscopy Indications: 2nd degree variceal eradication (following bleed) Providers: Minh Martinez DO Medicines: Monitored Anesthesia Care Patient Profile: This is a 66 year old female. Refer to note in patient chart for documentation of history and physical. Patient has symptoms of chronic dyspepsia. [Date of Onset]. Complications: No immediate complications. Procedure: Pre-Anesthesia Assessment: - Prior to the procedure, a History and Physical was performed, and patient medications and allergies were reviewed. The risks and benefits of the procedure and the sedation options and risks were discussed with the patient. All questions were answered and informed consent was obtained. Patient identification and proposed procedure were verified by the physician in the pre-procedure area. Mental Status Examination: alert and oriented. Airway Examination: normal oropharyngeal airway and neck mobility. Respiratory Examination: clear to auscultation. CV Examination: normal. Prophylactic Antibiotics: The patient does not require prophylactic antibiotics. Prior Anticoagulants: The patient has taken no previous anticoagulant or antiplatelet agents. After reviewing the risks and benefits, the patient was deemed in satisfactory condition to undergo the procedure. The anesthesia plan was to use monitored anesthesia care (MAC). Immediately prior to administration of medications, the patient was re-assessed for adequacy to receive sedatives. The heart rate, respiratory rate, oxygen saturations, blood pressure, adequacy of pulmonary ventilation, and response to care were monitored throughout the procedure. The physical status of the patient was re-assessed after the procedure. After obtaining informed consent, the endoscope was passed under direct vision. Throughout the procedure, the patient's blood pressure, pulse, and oxygen saturations were monitored continuously. The gastroscope was introduced through the mouth, and advanced to the second part of duodenum. The upper GI endoscopy was accomplished without difficulty. The patient tolerated the procedure well. Scope In: 7:48:29 AM Scope Out: 7:55:45 AM Total Procedure Duration Time 0 hours 7 minutes 16 seconds Findings: Grade I varices were found in the lower third of the esophagus. They were 5 mm in largest diameter. One band was successfully placed with incomplete eradication of varices. There was no bleeding during the procedure. Mild portal hypertensive gastropathy was found in the gastric body. No gross lesions were noted in the first portion of the duodenum. Impression: - Grade I esophageal varices. Incompletely eradicated. Banded. - Portal hypertensive gastropathy. - No specimens collected. Recommendation: - Discharge patient to home. - Resume previous diet today. - Continue present medications. Procedure Code(s): --- Professional --- 32563, Esophagogastroduodenoscopy, flexible, transoral; with band ligation of esophageal/gastric varices CPT copyright 2017 [employer]. All rights reserved. The codes documented in this report are preliminary and upon harbor police launch commander review may be revised to meet current compliance requirements. Minh Martinez DO 09/10/2022 8:05:49 AM This report has been signed electronically. Number of Addenda: 0 Note Initiated On: 09/10/2022 7:24 AM
--- NOTE | 2022-09-10 08:07 | OP.CCLET_ITS ---
09/10/2022 Billy Wong MD Re : Upper GI endoscopy procedure for Jacqueline Morse Dear Dr. Wong This procedure was performed on Saturday, September 10, 2022. My impressions and recommendations are as follows: Impressions : - Grade I esophageal varices. Incompletely eradicated. Banded. - Portal hypertensive gastropathy. - No specimens collected. Recommendations : - Discharge patient to home. - Resume previous diet today. - Continue present medications. My findings are described in the full procedure note, which is enclosed. If I can be of further assistance, please feel free to contact me at . Sincerely, Minh Martinez, 09/10/2022 8:05:49 AM This report has been signed electronically.
[2022-09-10 08:10] VITALS: BP 124/59; BP 99/56; PULSE 77; RESP 16; O2SAT 100
[2022-09-10 08:15] VITALS: BP 103/58; BP 124/59; PULSE 77; RESP 18; TEMP 36.7; O2SAT 100
[2022-09-10 08:25] VITALS: BP 124/59
== END 2022-09-10 08:52 | disposition home or self-care (01) ==
LOC: EN 06:54 → AC 06:55
PROVIDERS: PCP Family Medicine; Referring Provider Family Medicine; Visit Provider Internal Medicine Gastroenterology
PROC: 0DJ08ZZ Inspection of Upper Intestinal Tract, Via Natural or Artificial Opening Endoscopic (ICD-10-PCS; CPT 43235; principal; 2022-09-10 07:55)
DX: I85.00 Esophageal varices without bleeding (principal); K76.6 Portal hypertension; K74.60 Unspecified cirrhosis of liver; E11.22 Type 2 diabetes mellitus with diabetic chronic kidney disease; I48.91 Unspecified atrial fibrillation; K31.89 Other diseases of stomach and duodenum; I12.9 Hypertensive chronic kidney disease with stage 1 through stage 4 chronic kidney disease, or unspecified chronic kidney disease; N18.9 Chronic kidney disease, unspecified; Z79.899 Other long term (current) drug therapy; Z79.84 Long term (current) use of oral hypoglycemic drugs
CPT/HCPCS: 43244; 82962; J7120; J2405

== ENCOUNTER 2022-09-18 09:26 | Outpatient (CLI) | payer MEDICARE, OTHER, SELFPAY ==
[2022-09-18 10:06] LABS: Absolute Lymphocyte Count 0.68 X10^3/uL (0.83-4.51); Absolute Neutrophil Count 2.3 X10^3/uL (2.0-7.7); Basophil# 0.03 X10^3/uL; Basophil% 0.8 % (0-1); Eosinophil# 0.44 X10^3/uL; Eosinophils% 11.6 % (0-5); Hematocrit 30.4 % (37-47); Lymphocyte # 0.68 X10^3/ul (0.83-4.51); Mean Corp Hgb Conc 32.9 g/dL (32-36); Mean Corpuscular Hgb 31.8 pg (27.0-32.0); Mean Corpuscular Volume 96.8 fL (81-99); Mean Platelet Vol. 10.2 fl (6.2-12.0); Monocyte# 0.27 X10^3/uL; Monocyte% 7.1 % (0-10); NRBC Flagged by Analyzer 0 % (0-5); Neutrophil # 2.34 X10^3/uL (2.7-7.7); POSITIVE COUNT YES; Platelet Count 64 K/mm3 (150-450); RBC Distribution Width CV 13.4 % (11.6-14.6); RBC Distribution Width SD 47.8 fl (35.1-43.9); Red Blood Count 3.14 M/mm3 (4.2-5.4); White Blood Count 3.8 K/mm3 (4.4-11.0)
[2022-09-18 10:13] LABS: International Normalized Ratio 1.2; Prothrombin Time (Protime)PT. 14.5 SECONDS (11.7-14.9)
[2022-09-18 10:32] LABS: ALB/GLOB Ratio 0.8 RATIO (0.9-2.4); AST(SGOT) 35 U/L (15-37); Alanine Aminotransfer ALT/SGPT 31 U/L (13-56); Albumin, Serum 3.3 g/dL (3.2-5.0); Alkaline Phosphatase 79 U/L (45-117); Anion Gap 7 (5-15); BUN 18 mg/dL (7-18); BUN/Creat Ratio 14.1 RATIO (10-20); Calcium,Total 9.6 mg/dL (8.5-10.1); Chloride 104 mmol/L (98-107); Creatinine, Serum 1.28 mg/dL (0.55-1.02); EST Glomerular Filtration Rate 44 mL/min (>60); Est Glom Filt Rate - Afr Amer 54 mL/min (>60); Globulin 4.3 g/dL (2.2-4.2); Glucose 118 mg/dL (74-106); Potassium 3.9 mmol/L (3.5-5.1); Protein, Total 7.6 g/dL (6.4-8.2); Sodium Level 137 mmol/L (136-145)
== END 2022-09-18 23:59 | disposition home or self-care (01) ==
LOC: LAB 09:29
PROVIDERS: PCP Family Medicine; Referring Provider Nurse Practitioner Adult Health; Visit Provider Nurse Practitioner Adult Health
DX: I48.91 Unspecified atrial fibrillation (principal); K74.60 Unspecified cirrhosis of liver
CPT/HCPCS: 36415; 80053; 85025; 85610

== ENCOUNTER → 2022-11-19 | Outpatient (CLI) | payer MEDICARE, OTHER, SELFPAY ==
--- NOTE | 2022-11-19 09:29 | US_ITS ---
STUDY: ABDOMINAL ULTRASOUND - RIGHT UPPER QUADRANT REASON FOR VISIT: Female, 67 years old 6 mos f/u cirrhosis, due 10/2022 -- RUQ TECHNIQUE: Ultrasound evaluation of the right upper quadrant was performed with real-time and static daly-scale imaging. TECHNICAL QUALITY: Adequate. COMPARISON: Comparison is made with prior examination of 05/14/2022. FINDINGS: Liver: The liver measures 14.5 cm. Stable lobular contour of the liver. There is normal echogenicity of the liver. The bile ducts are within normal limits. There is hepatic color flow. The direction of portal flow is hepatopetal. There is no demonstrated mass lesion. Small amount of perihepatic fluid. Gallbladder: The patient is status post cholecystectomy. Common Bile Duct (C.B.D.): The common bile duct is dilated and measures 16.3 mm. Pancreas: Normal size of the head, body and tail of the pancreas. There is increased echogenicity of the pancreas. There is no demonstrated pancreatic mass or cyst. Right Kidney: Normal size of the right kidney. The right kidney measures 9.8 cm x 4.7 cm x 4 cm. Normal renal cortex. The right cortex measures 1.1 cm. There is no demonstrated renal mass or cyst. There is no right hydronephrosis. US/Abdomen Limited IMPRESSION: Status post cholecystectomy. Stable dilatation of the common bile duct. Lobular appearance of the liver contour. Electronically Signed: Hans Benz MD at 13:51 EST ,
== END | disposition home or self-care (01) ==
LOC: US 09:18
PROVIDERS: PCP Family Medicine; Referring Provider Nurse Practitioner Adult Health; Visit Provider Nurse Practitioner Adult Health
DX: K83.8 Other specified diseases of biliary tract (principal); K74.60 Unspecified cirrhosis of liver; Z90.49 Acquired absence of other specified parts of digestive tract
CPT/HCPCS: 76705

== ENCOUNTER → 2023-05-24 | Outpatient (CLI) | payer MEDICARE, OTHER, SELFPAY ==
[2023-05-24 11:21] LABS: Absolute Lymphocyte Count 0.62 X10^3/uL (0.83-4.51); Absolute Neutrophil Count 1.9 X10^3/uL (2.0-7.7); Basophil# 0.01 X10^3/uL; Basophil% 0.3 % (0-1); Eosinophil# 0.09 X10^3/uL; Eosinophils% 3.1 % (0-5); Hematocrit 28.6 % (37-47); Hemoglobin 9.5 g/dL (12.0-15.0); Lymphocyte # 0.62 X10^3/ul (0.83-4.51); Lymphocyte % 21.6 % (19-41); Mean Corp Hgb Conc 33.2 g/dL (32-36); Mean Corpuscular Hgb 33.8 pg (27.0-32.0); Mean Corpuscular Volume 101.8 fL (81-99); Mean Platelet Vol. 10.8 fl (6.2-12.0); Monocyte# 0.24 X10^3/uL; Monocyte% 8.4 % (0-10); NRBC Flagged by Analyzer 0 % (0-5); Neutrophil % 66.3 % (47-70); POSITIVE COUNT YES; Platelet Count 51 K/mm3 (150-450); RBC Distribution Width CV 12.6 % (11.6-14.6); RBC Distribution Width SD 47.7 fl (35.1-43.9); Red Blood Count 2.81 M/mm3 (4.2-5.4); White Blood Count 2.9 K/mm3 (4.4-11.0)
[2023-05-24 11:22] LABS: Erythrocyte Sedimentation Rate 22 mm/hr (0-30)
[2023-05-24 11:33] LABS: International Normalized Ratio 1.1; Prothrombin Time (Protime)PT. 13.9 SECONDS (11.7-14.9)
[2023-05-24 11:47] LABS: ALB/GLOB Ratio 0.8 RATIO (0.9-2.4); AST(SGOT) 36 U/L (15-37); Alanine Aminotransfer ALT/SGPT 34 U/L (13-56); Albumin, Serum 3.3 g/dL (3.2-5.0); Alkaline Phosphatase 104 U/L (45-117); Anion Gap 7 (5-15); BUN 19 mg/dL (7-18); BUN/Creat Ratio 14.6 RATIO (10-20); CRP 3.99 mg/L (0.0-3.0); Calcium,Total 9.9 mg/dL (8.5-10.1); Chloride 104 mmol/L (98-107); EST Glomerular Filtration Rate 43 mL/min (>60); Est Glom Filt Rate - Afr Amer 52 mL/min (>60); Globulin 3.9 g/dL (2.2-4.2); Glucose 99 mg/dL (74-106); LDH 210 U/L (84-246); Potassium 4.2 mmol/L (3.5-5.1); Protein, Total 7.2 g/dL (6.4-8.2); Sodium Level 135 mmol/L (136-145)
[2023-05-29 09:45] LABS: AFP, Tumor Marker 7.4 ng/mL (0.0-9.2)
== END | disposition home or self-care (01) ==
LOC: LAB 10:47
PROVIDERS: PCP Family Medicine; Referring Provider Internal Medicine Gastroenterology; Visit Provider Internal Medicine Gastroenterology
DX: K74.60 Unspecified cirrhosis of liver (principal); I85.00 Esophageal varices without bleeding; I48.91 Unspecified atrial fibrillation
CPT/HCPCS: 36415; 80053; 82105; 82140; 82677; 83615; 84702; 85025; 85610; 85652; 86140

== ENCOUNTER → 2023-09-04 | Outpatient (CLI) | payer MEDICARE, OTHER, SELFPAY ==
--- NOTE | 2023-09-04 09:22 | US_ITS ---
INDICATION: SCREENING FOR CIRRHOSIS EXAMINATION: Ultrasound US Abdomen Limited (quadrant) TECHNIQUE: Ha scale and color doppler imaging was performed of the right upper quadrant. COMPARISON: FINDINGS: LIVER: There is coarse echotexture and lobulated contour measuring 13.0 cm. No focal hepatic lesion. There is mild perihepatic fluid. GALLBLADDER AND BILIARY TREE: Status post cholecystectomy. Dilated common bile duct at 14 mm. Songraphic Temple''s sign: PANCREAS: No focal abnormality is demonstrated in the pancreas. No pancreatic ductal dilatation. Right kidney: 9.9 x 4.5 x 3.9 cm. The cortex is 11 mm. No hydronephrosis. No shadowing calculi. US/Abdomen Limited IMPRESSION: Coarse hepatic echotexture with lobulation suggesting cirrhosis. Mild perihepatic fluid. Status post cholecystectomy. Mildly dilated common bile duct. Electronically Signed: Ankur Yousif DO at 23:10 EST ,
== END | disposition home or self-care (01) ==
LOC: US 09:21
PROVIDERS: PCP Family Medicine; Referring Provider Student in an Organized Health Care Education/Training Program; Visit Provider Student in an Organized Health Care Education/Training Program
DX: K74.60 Unspecified cirrhosis of liver (principal)
CPT/HCPCS: 76705

== ENCOUNTER → 2023-09-14 | Outpatient (CLI) | payer MEDICARE, OTHER, SELFPAY ==
[2023-09-15 08:07] LABS: HEPATITIS B SURFACE AG Negative (Negative); Hep C Antibodies Non Reactive (Non Reactive); Hepatitis A IgM Antibody Negative (Negative); Hepatitis B Core AB IgM Negative (Negative)
== END | disposition home or self-care (01) ==
LOC: LAB 09:19
PROVIDERS: PCP Family Medicine; Referring Provider Internal Medicine Gastroenterology; Visit Provider Internal Medicine Gastroenterology
DX: K74.60 Unspecified cirrhosis of liver (principal)
CPT/HCPCS: 36415; 80074

== ENCOUNTER 2024-01-02 06:17 | Day surgery (SDC) | payer MEDICARE, OTHER, SELFPAY ==
[2024-01-02] VITALS (7 sets, daily range): BP systolic 81–124; BP diastolic 44–53; PULSE 66–76; RESP 16–18; TEMP 36.1–36.6; O2SAT 98–100; BMI 25.8
--- OUTSIDE RECORDS SUMMARY | 2024-01-02 06:23 | XMS RPT_ITS | CCD ---
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 Name Role Phone BAILEE, DOLLY Unavailable Unavailable [facility] Unavailable Unavailable BAILEE, DOLLY Unavailable Unavailable BAILEE, DOLLY Unavailable Unavailable CEBUL, AUSTIN Unavailable Unavailable BAILEE, DOLLY Unavailable Unavailable BAILEE, DOLLY Unavailable Unavailable CEBUL, A[place]IN Unavailable Unavailable BAILEE, DOLLY E Unavailable Unavailable BAILEE, DOLLY E Unavailable Unavailable BAILEE, DOLLY E Unavailable Unavailable CHARLENE KULKARNI Unavailable Unavailable KAILEE SHAY Admitting Renata vailaKAILEE Herndon Attending Renata vailable Kailee Shay MD Unavailable Un available Elvis Culp MD Primary Care Provider Kailee Shay MD Unavailable Un available Elvis Culp MD Primary Care Provider [phone] Elvis Culp MD Primary Care Provider Kailee Shay MD Unavailable Un available Elvis Culp MD Primary Care Provider Elvis Culp MD Primary Care Provider ELVIS CULP Primary Care Unavailable AMERICA HINDS Referring Unavailable AMERICA HINDS Attending Unavailable SELF, SELF Referring Unavailable AMERICA HINDS Attending Unavailable ELVIS CULP Primary Care Unavailable Kailee Shay MD Unavailable Un available ELVIS CULP Attending Unavailable ELVIS CULP Primary Care Unavailable TERI OROSCO Attending Unavailable ELVIS CULP Primary Care Unavailable ELVIS CULP Referring Unavailable ELVIS CULP Primary Care Unavailable ELVIS CULP Primary Care Unavailable ELVIS CULP Referring Unavailable ELVIS CULP Primary Care Unavailable ELVIS CULP Referring Unavailable Allergies Allergy Classification Reported Allergen(s) Allergy Type Date of Onset Reaction(s) Facility (20 sources) atorvastatin; Translations: [ATORVASTATIN CALCIUM] Drug Allergy 3 Other: See Comments [facility] Repository (20 sources) pioglitazone; Translations: [PIOGLITAZONE HCL] Drug Allergy 7 Swelling [facility] Repository (20 sources) pravastatin; Translations: [PRAVASTATIN] Drug Allergy 4 Other: See Comments [facility] Repository (20 sources) simvastatin; Translations: [SIMVASTATIN] Drug Allergy 1 Intolerance [facility] Repository (20 sources) SITagliptin; Translations: [SITAGLIPTIN] Drug Allergy 7 Shortness of Breath, Dyspnea [facility] Repository (20 sources) dilTIAZem; Translations: [DILTIAZEM HCL] Drug Allergy 9 Other: See Comments [facility] Other [place] Repository (20 sources) Lisinopril; Translations: [LISINOPRIL] Drug Allergy 1 Other: See Comments [facility] Work Phone: (20 sources) ferrous sulfate; Translations: [FERROUS SULFATE] Drug Allergy 2 Other: See Comments [facility] Work Phone: (2 sources) atorvastatin Drug Allergy 3 [facility] (2 sources) dilTIAZem Drug Allergy 2 [facility] (2 sources) Flecainide Drug Allergy 1 [facility] (2 sources) Lisinopril Propensity to adverse reactions to drug 1 [facility] (2 sources) Metoprolol Drug Allergy 1 [facility] (2 sources) pioglitazone Drug Allergy 7 Swelling [facility] Medications Current Medications Medication Drug Class(es) Dates Sig (Normalized) Sig (Original) cephalexin 500 mg oral capsule (2 sources) Cephalosporin Antibacterial Start: 05-02-2022 End: 05-09-2022 take 1 capsule by mouth twice daily cephALEXin (KEFLEX) 500 mg capsule Take 1 capsule by mouth twice daily for 7 days. 14 capsule 0 05/02/2022 05/09/2022 Active Completed/Discontinued Medications Medication Drug Class(es) Dates Sig (Normalized) Sig (Original) calcium carbonate 1250 mg / cholecalciferol 200 unt oral tablet (20 sources) Vitamin D calcium-carbonat e-vit balderas D3 500 mg-5 mcg (200 unit) per tablet Take by mouth. 0 Active Problems Active Problems Problem Classification Problem Date Documented Da te Episodic/Chronic Cardiac dysrhythmias (20 sources) Paroxysmal atrial fibrillation; Translations: [Paroxysmal atrial fibrillation] Onset: 05-16-2017 Chronic Chronic kidney disease (20 sources) Chronic kidney disease stage 3B ; Translations: [Stage 3b chronic kidney disease (HCC)] Onset: 08-21-2021 Chronic Chronic kidney disease (1 source) Chronic kidney disease; Translations: [Stage 3b chronic kidney disease (HCC)] Onset: 08-21-2021 Coagulation and hemorrhagic disorders (20 sources) Thrombocytopenia, unspecified; Translations: [Platelet count below reference range] Onset: 12-23-2018 Chronic Deficiency and other anemia (20 sources) Iron deficiency anemia due to blood loss; Translations: [Iron deficiency anemia secondary to blood loss (chronic)] Onset: 09-19-2018 Chronic Deficiency and other anemia (1 source) Iron deficiency anemia secondary to blood loss (chronic); Translations: [Iron deficiency anemia due to chronic blood loss] Onset: 07-24-2021 Chronic Diabetes mellitus with complications (20 sources) Type 2 diabetes mellitus; Translations: [Type 2 diabetes mellitus with diabetic chronic kidney disease] Onset: 01-17-2017 Chronic Diabetes mellitus without complication (1 source) Diabetes mellitus without complication; Translations: [Type 2 diabetes mellitus with stage 3b chronic kidney disease, without long-term current use of insulin (HCC)] Onset: 09-27-2022 Diseases of white blood cells (20 sources) Decreased white blood cell count, unspecified; Translations: [Leukopenia] Onset: 12-23-2018 Chronic Disorders of lipid metabolism (20 sources) Other hyperlipidemia; Translations: [Mixed hyperlipidemia] Onset: 11-04-2012 Chronic Essential hypertension (20 sources) Essential (primary) hypertension; Translations: [Benign essential hypertension] Onset: 11-04-2012 Chronic Gastroduodenal ulcer (except hemorrhage) (20 sources) Multiple gastric ulcers; Translations: [Gastric ulcer, unspecified as acute or chronic, without hemorrhage or perforation] Onset: 07-24-2021 07-24-2021 Chronic Gastrointestinal hemorrhage (20 sources) Bleeding esophageal varices; Translations: [Secondary esophageal varices with bleeding] Onset: 07-24-2021 07-24-2021 Chronic Genitourinary symptoms and ill-defined conditions (2 sources) Increased frequency of urination; Translations: [Frequency of micturition] Episodic Heart valve disorders (20 sources) Nonrheumatic mitral (valve) insufficiency; Translations: [Mitral valve regurgitation] Onset: 01-22-2017 07-24-2021 Chronic Hepatitis (20 sources) Nonalcoholic steatohepatitis; Translations: [Nonalcoholic steatohepatitis (SANCHEZ)] Onset: 07-24-2021 Chronic Immunizations and screening for infectious disease (2 sources) Vaccination needed; Translations: [Encounter for immunization] Episodic Menopausal disorders (1 source) Primary ovarian failure; Translations: [Other primary ovarian failure] Chronic Other liver diseases (20 sources) Cirrhosis - non-alcoholic; Translations: [Unspecified cirrhosis of liver] Onset: 07-24-2021 07-24-2021 Chronic Other liver diseases (4 sources) Cirrhosis of liver; Translations: [Unspecified cirrhosis of liver] Onset: 10-18-2022 06-20-2023 Chronic Other liver diseases (3 sources) Unspecified cirrhosis of liver; Translations: [Unspecified cirrhosis of liver] Onset: 07-24-2021 Chronic Other nutritional; endocrine; and metabolic disorders (1 source) Hypercalcemia; Translations: [Hypercalcemia] 05-28-2023 Chronic Other nutritional; endocrine; and metabolic disorders (1 source) Hypercalcemia; Translations: [Hypercalcemia] Onset: 09-16-2023 Chronic Other screening for suspected conditions (not mental disorders or infectious disease) (3 sources) Patient encounter status; Translations: [Encounter for screening for osteoporosis] Episodic Pulmonary heart disease (20 sources) Secondary pulmonary hypertension; Translations: [Pulmonary hypertension, secondary] Onset: 01-22-2017 07-24-2021 Chronic Unclassified (1 source) Unknown / UNK(Unknown) Onset: 08-28-2017 Past or Other Problems Problem Classification Problem Date Documented Da te Episodic/Chronic Administrative/social admission (20 sources) Advance directive discussed with patient; Translations: [Other specified counseling] Onset: 03-08-2022 Episodic Calculus of urinary tract (14 sources) Kidney stone; Translations: [Calculus of kidney] Onset: 09-29-2022 Episodic Nutritional deficiencies (20 sources) Deficiency of other specified B group vitamins; Translations: [Cobalamin deficiency] Onset: 12-24-2018 Episodic Other aftercare (20 sources) Long-term current use of anticoagulant; Translations: [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] Onset: 01-22-2017 07-31-2021 Episodic Other aftercare (1 source) 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; Translations: [Chronic anticoagulation] Onset: 07-31-2021 Episodic Residual codes; unclassified (20 sources) Active living will ; Translations: [Other specified health status] Onset: 03-08-2022 Episodic Results Test Name Value Interpretation Reference Range Facil ity Vital Signs Date Time Vital Sign Value Performing Clinician Facility 06-20-2023 10:25-0400 Body height 154.9 cm America Hinds MD Work Phone: [facility] 06-20-2023 10:25-0400 Body mass index (BMI) [Ratio] 25.34 kg/m2 America Hinds MD Work Phone: [facility] 06-20-2023 10:25-0400 Body weight 60.83 kg America Hinds MD Work Phone: [facility] 06-20-2023 10:25-0400 Diastolic blood pressure 60 mm[Hg] America Hinds MD Work Phone: [facility] 06-20-2023 10:25-0400 Heart rate 76 /min America Hinds MD Work Phone: [facility] 06-20-2023 10:25-0400 Respiratory rate 18 /min America Hinds MD Work Phone: [facility] 06-20-2023 10:25-0400 SaO2% (BldA) [Mass fraction] 98 % America Hinds MD Work Phone: [facility] 06-20-2023 10:25-0400 Systolic blood pressure 130 mm[Hg] America Hinds MD Work Phone: [facility] 09-26-2022 10:39-0500 Body weight 59.42 kg Elvis Culp MD Work Phone: [facility] 09-26-2022 10:39-0500 Diastolic blood pressure 72 mm[Hg] Elvis Culp MD Work Phone: [facility] 09-26-2022 10:39-0500 Heart rate 80 /min Elvis Culp MD Work Phone: [facility] 09-26-2022 10:39-0500 Respiratory rate 16 /min Elvis Culp MD Work Phone: [facility] 09-26-2022 10:39-0500 Systolic blood pressure 124 mm[Hg] Elvis Culp MD Work Phone: [facility] 05-02-2022 09:47-0400 Body temperature 97.59 [degF] Emili Cano CONSUMER INSIGHTS INTERN.IMAGER Work Phone: [facility] 05-02-2022 09:47-0400 Body weight 60.96 kg Emili Cano [employer]SUMER INSIGHT[employer] INTERN.IMAGER Work Phone: [facility] 05-02-2022 09:47-0400 Diastolic blood pressure 72 mm[Hg] Emili Cano CONSUMER INSIGHT[employer] INTERN.IMAGER Work Phone: [facility] 05-02-2022 09:47-0400 Heart rate 78 /min Emili Cano CONSUMER INSIGHT[employer] INTERN.IMAGER Work Phone: [facility] 05-02-2022 09:47-0400 Respiratory rate 18 /min Emili Cano CONSUMER INSIGHTS INTERN.IMAGER Work Phone: [facility] 05-02-2022 09:47-0400 SaO2% (BldA) [Mass fraction] 100 % Emili Cano CONSUMER INSIGHTS INTERN.IMAGER Work Phone: [facility] 05-02-2022 09:47-0400 Systolic blood pressure 136 mm[Hg] Emili Cano CONSUMER INSIGHTS INTERN.IMAGER Work Phone: [facility] 03-08-2022 11:07-0400 Body height 155.6 cm Elvis Culp MD Work Phone: [facility] 03-08-2022 11:07-0400 Body weight 60.33 kg Elvis Culp MD Work Phone: [facility] 03-08-2022 11:07-0400 Diastolic blood pressure 68 mm[Hg] Elvis Culp MD Work Phone: [facility] 03-08-2022 11:07-0400 Heart rate 72 /min Elvis Culp MD Work Phone: [facility] 03-08-2022 11:07-0400 Respiratory rate 16 /min Elvis Culp MD Work Phone: [facility] 03-08-2022 11:07-0400 Systolic blood pressure 112 mm[Hg] Elvis Culp MD Work Phone: [facility] Encounters Encounter Date Encounter Type Care Provider Facility Start: 12-16-2023 Refill Elvis quintero MD Work Phone: [facility] Procedures Date Procedure Procedure Detail Performing Clinician Start: 09-18-2022 CBC W/DIFF/PLT ([facility]) [facility] Provider Start: 09-18-2022 Comprehensive metabo lic 2000 panel - Serum or Plasma [facility] Provider Start: 05-02-2022 Urnls dip stick/tabl et rgnt auto w/o microscopy Emili Cano [employer]ER INSIGHT[employer] INTERN.IMAGER Work Phone: Start: 03-08-2022 CBC W/DIFF/PLT ([facility]) [facility] Provider Start: 03-08-2022 Comprehensive metabo lic 2000 panel - Serum or Plasma [facility] Provider Start: 03-08-2022 Adult depression scr eening assessment Elvis Culp MD Work Phone: Start: 08-15-2021 Mammography Elvis dangelo MD Work Phone: Start: 07-29-2021 Adult depression scr eening assessment Elvis Culp MD Work Phone: Start: 01-19-2019 Antibody screen AMANDA SANCHEZ Plan of Treatment Date Care Activity Detail Author Start: 07-20-2032 Tetanus vaccination TETANUS [facility] Start: 07-20-2032 Urine microalbumin profile [facility] Start: 10-08-2028 Screening for malignant neoplasm of colon [facility] Start: 10-03-2024 Annual PCP Team Chronic Disease Visit Annual PCP Team Chronic Disease Visit [facility] Start: 10-03-2024 BP Controlled (<130/80) BP Controlled (<130/80) [facility] Start: 09-16-2024 Complete blood count Hemoglobin/Hematocrit [facility] Start: 09-16-2024 Creatinine measurement Serum Creatinine [facility] Start: 09-16-2024 Hemoglobin/Hematocrit Hemoglobin/Hematocrit [facility] Start: 09-16-2024 Hepatitis B surface antibody level LDL Cholesterol [facility] Start: 09-16-2024 Serum Creatinine Serum Creatinine [facility] Start: 07-30-2024 Glaucoma screening Dilated Retinal Exam [facility] Start: 07-30-2024 Hepatitis C antibody, confirmatory test Dilated Retinal Exam [facility] Start: 05-24-2024 Hepatitis B screening URINE ALBUMIN:CREATININE RATIO [facility] Start: 04-03-2024 3 comp foot exam completed DIABETIC FOOT EXAM [facility] Start: 04-03-2024 ANNUAL PCP TEAM CHRONIC DISEASE VISIT ANNUAL PCP TEAM CHRONIC DISEASE VISIT [facility] Start: 04-03-2024 BP CONTROLLED (<130/80) BP CONTROLLED (<130/80) [facility] Start: 04-03-2024 Diabetic foot examination Diabetic Foot Exam [facility] Start: 04-03-2024 HEMOGLOBIN/HEMATOCRIT HEMOGLOBIN/HEMATOCRIT [facility] Start: 04-03-2024 Hepatitis B surface antibody level LDL CHOLESTEROL [facility] Start: 04-03-2024 SERUM CREATININE SERUM CREATININE [facility] Start: 03-16-2024 Hemoglobin A1c measurement HbA1C [facility] Start: 03-16-2024 Hemoglobin A1c/Hemoglobin.total in Blood HbA1C [facility] Start: 02-13-2024 End: 02-13-2024 Patient encounter procedure 02/13/2024 10:00 AM EDT Office Visit [facility] [address] [place] [address] America Hinds MD [address] [place] [address] [facility] Start: 10-28-2023 Advance Directive Discussion Advance Directive Discussion [facility] Start: 10-28-2023 Depression Assessment Depression Assessment [facility] Start: 10-08-2023 Colonoscopy COLONOSCOPY [facility] Start: 10-08-2023 COLORECTAL CANCER SCREENING COLORECTAL CANCER SCREENING [facility] Start: 10-03-2023 Hemoglobin A1c/Hemoglobin.total in Blood HBA1C [facility] Start: 09-26-2023 ANNUAL PCP TEAM CHRONIC DISEASE VISIT ANNUAL PCP TEAM CHRONIC DISEASE VISIT [facility] Start: 09-26-2023 BP CONTROLLED (<130/80) BP CONTROLLED (<130/80) [facility] Start: 09-26-2023 Hepatitis B surface antibody level LDL CHOLESTEROL [facility] Start: 09-18-2023 HEMOGLOBIN/HEMATOCRIT HEMOGLOBIN/HEMATOCRIT [facility] Start: 06-28-2023 End: 08-28-2023 Calcium [Mass/volume] in Serum or Plasma CALCIUM TOTAL BLD Lab Routine Hypercalcemia Expected: 06/28/2023, Expires: 08/28/[address] [facility] Work Phone: Immunizations Immunization Date Immunization Notes Care Provider Fa cility 10-27-2023 respiratory syncytia l virus (RSV) vaccine, adjuvanted (AREXVY) Elvis Culp MD Work Phone: [facility] 08-28-2022 influenza, high dose seasonal, preservative-free Elvis Culp MD Work Phone: [facility] 08-28-2022 pneumococcal (PCV20) vaccine, 20 valent (PREVNAR 20) Elvis Culp MD Work Phone: [facility] 08-28-2022 influenza virus vacc ine, unspecified formulation America Hinds MD Work Phone: [facility] 07-27-2022 COVID-19 booster vaccine, age 12+ yr, bivalent (MODERNA) Elvis Culp MD Work Phone: [facility] 07-20-2022 tetanus toxoid, redu flory diphtheria toxoid, and acellular pertussis vaccine, adsorbed Elvis Culp MD Work Phone: [facility] 05-30-2022 zoster vaccine recombinant Elvis Culp MD Work Phone: [facility] 02-08-2022 hepatitis A vaccine, adult dosage Id Nurse Work Phone: [facility] Work Phone: 02-08-2022 hepatitis B vaccine, adult dosage Id Nurse Work Phone: [facility] Work Phone: 01-19-2022 zoster vaccine recombinant Elvis Culp MD Work Phone: [facility] Work Phone: 10-10-2021 hepatitis B vaccine, adult dosage Elvis Culp MD Work Phone: [facility] Work Phone: 10-10-2021 hepatitis B vaccine, unspecified formulation Elvis Culp MD Work Phone: [facility] 09-27-2021 influenza, high dose seasonal, preservative-free Elvis Culp MD Work Phone: [facility] 09-12-2021 COVID-19 vaccine, fu ll dose (MODERNA) Elvis Culp MD Work Phone: [facility] Work Phone: 08-10-2021 hepatitis A vaccine, adult dosage Elvis Culp MD Work Phone: [facility] 08-10-2021 hepatitis B vaccine, adult dosage Elvis Culp MD Work Phone: [facility] 08-10-2021 pneumococcal conjuga te vaccine, 13 valent Elvis Culp MD Work Phone: [facility] 01-05-2021 COVID-19 vaccine, fu ll dose (MODERNA) Elvis Culp MD Work Phone: [facility] 12-08-2020 COVID-19 vaccine, fu ll dose (MODERNA) Elvis Culp MD Work Phone: [facility] 12-29-2015 zoster vaccine, live Elvis Culp MD Work Phone: [facility] 09-10-2011 pneumococcal polysaccharide vaccine, 23 valent Elvis Culp MD Work Phone: [facility] 11-04-2008 tetanus toxoid, redu flory diphtheria toxoid, and acellular pertussis vaccine, adsorbed Elvis Culp MD Work Phone: [facility] Payers Date Payer Category Payer Medicare MEDICARE MEDICAR E A AND B [id number] 2020-Present [phone] [place] [address] Medicare [id number] 2020 Medicare [id number] 2020 Medicare [id number] 2020 Private Health Insurance [facility] AARP SUPPLEMENT [id number] 2020-Present [phone] [address] [place] [address] Indemnity [id number] 2020 Private Health Insurance [facility] AARP SUPPLEMENT [id number] 2020-Present [phone] [address] [place] [address] Indemnity [id number] 2020 Unknown AARP AARP [id number] 2020-Present [address] [place] [address] [id number] 2020 Unknown [id number] 1955 Unknown [id number] 1955 Unknown [id number] Unknown [id number] Social History Date Type Detail Facility Start: 09-10-2011 End: 09-26-2022 Tobacco smoking status NHIS Never smoked tobacco [facility] Start: 08-21-2021 End: 04-03-2023 Alcohol intake Current drinker of alcohol (finding) [facility] Start: 09-06-2020 History SDOH Housing Unable to Pay 2 [facility] Start: 09-06-2020 History SDOH Housing Places Lived 1 [facility] Start: 1955 Sex Assigned At Not on file [facility] Start: 01-14-2022 End: 09-26-2022 Exposure to SARS-CoV-2 (event) Not sure [facility] Start: 01-30-2022 End: 09-19-2022 History SDOH Housing Unable to Pay 3 [facility] Start: 09-10-2011 End: 09-26-2022 Tobacco use and exposure Smokeless tobacco non-user [facility] Start: 09-19-2022 End: 04-03-2023 History of Social function [facility] Start: 09-19-2022 End: 04-03-2023 Social connection and isolation panel [facility] In a typical week, h ow many times do you talk on the telephone with family, friends, or neighbors? Patient refused [facility] Are you now , , , , never or living with a partner? Refused [facility] (I/We) worried wheartem er (my/our) food would run out before (I/we) got money to buy more. DK or Refused [facility] Start: 06-20-2023 Alcohol intake Ex-drinker (finding) [facility] Start: 04-12-2022 Alcohol Comment occassional ; but have quit all together [facility] Clinical Notes 01-17-2017 to 02-19-2024 Telephone Encounter - Aubrie Mares LPN - 12/16/2023 11:56 AM Jody Tariq Ma - 09/16/2023 1:33 PM Yris Velasquez Mazabeth - 09/05/2023 10:52 AM ESTPatient Instructions Note Date & Type Note Facility 12-16-2023 Miscellaneous Notes [facility]-10/03/23 Labs-09/16/23 NOV-04/03/24 Aubrie Mares LPN documented in this encounter [facility] 10-03-2023 Note HNO ID: [id number] Author: Teri Orosco APRN.IMAGER Service: ? Author Type: Nurse Practitioner Type: Progress Notes Filed: 10/03/2023 9:37 AM Note Text: Chief Complaint Patient presents with: 6 Month Exam HPI Robbin Morse is a 68 year old female who presents here today for Above Complaints.. Patient presents for routine follow up. Patient reports she recently had cataract surgery is recovering well. Patient reports she is currently doing well and does not have any concerns regarding her chronic conditions. Past medical history, appointments, medications, allergies reviewed. Previous Medical History PAST MEDICAL HISTORY Diagnosis Date Advance directive discussed with patient 03/08/2022 Discussed 02/2022 Anxiety 06/30/2009 Cirrhosis, nonalcoholic (HCC) 07/24/[address] Martinez Closed nondisplaced fracture of left patella 04/03/202309/2022 Diabetic eye exam (HCC) 12/20/2021 Last done 12/19/21 Mild non proliterative retinopathy ou [facility] Essential hypertension, benign 11/04/2012 Hyperlipidemia, mixed 11/04/2012 Iron deficiency anemia due to chronic blood loss 09/19/2018 Leukopenia 12/23/[address] 03/08/2022 DPA: Dandre () Living will on file at physician's office 03/08/2022 DPA: Dandre () Medicare annual wellness visit, initial 03/08/2022 Medicare Part B: 08/28/2020 Last done: 03/08/2022 Moderate mitral regurgitation 01/22/2017 Multiple gastric ulcers 07/24/202106/2021 SANCHEZ (nonalcoholic steatohepatitis) 07/24/[address] Martinez Paroxysmal atrial fibrillation (HCC) 05/16/2017 Pulmonary hypertension, secondary 01/22/2017 Renal stone 09/29/202208/2022: Analysis: calcium oxalate. S/P ablation of atrial fibrillation 01/19/2019 Dr. Mercado Secondary esophageal varices with bleeding (HCC) 07/24/2021 Seeing Gastro: had banding 06/2021 Stage 3b chronic kidney disease (HCC) 08/21/2021 Thrombocytopenia (HCC) 12/23/2018 Type 2 diabetes mellitus with stage 3 chronic kidney disease, without long-term current use of insulin (HCC) 01/17/2017 Type II or unspecified type diabetes mellitus without mention of complication, not stated as uncontrolled 06/30/2009 Vitamin B12 deficiency 12/24/2018 Previous Surgical History PAST SURGICAL HISTORY Procedure Laterality Date COLONOSCOPY FLX DX W/COLLJ SPEC WHEN PFRMD 10/08/2018 repeat in 5 years due to family history ESOPHAGUS ENDOSCOPY W VARICES BANDING 07/24/2021 Dr. Martinez PAST SURGICAL HISTORY OF c section x 2 REMOVAL GALLBLADDER Family History FAMILY HISTORY Problem Relation Age of Onset Colon Cancer Mother Diabetes Father other (congestive heart failure) Father other (GERD) Sister Patient Allergies ALLERGIES Allergen Reactions Actos [Pioglitazone* Swelling dyspnea Cardizem [Diltiazem* Other: See Comments states it makes her blood sugar tali high Ferrous Sulfate Other: See Comments Upset stomach Januvia [Sitaglipti* Shortness of Breath chest pain and shortness of breath Lipitor [Atorvastat* Other: See Comments myalgia Lisinopril Other: See Comments elevated creatinine, swelling Pravastatin Other: See Comments Leg cramps Zocor [Simvastatin] Intolerance Current Medications Current Outpatient Medications on File Prior to Visit Medication Sig metFORMIN (GLUCOPHAGE) 500 mg tablet Take 2 tablets by mouth twice daily. glimepiride (AMARYL) 4 mg tablet Take 1 tablet by mouth daily with breakfast. hydroCHLOROthiazide 12.5 mg capsule Take 1 capsule by mouth once daily. potassium chloride ER (KLOR-CON) 20 mEq tablet Take 1 tablet by mouth once daily. cholecalciferol (VITAMIN D) 1,000 unit tab tablet Take 1,000 Units by mouth twice daily. magnesium oxide (MAG-OX) 400 mg (241.3 mg magnesium) tablet Take 1 tablet by mouth twice daily. carvedilol (COREG) 6.25 mg tablet Take 1 tablet by mouth twice daily with meals. Per Cardio, Dr. Groves famotidine (PEPCID) 40 mg tablet Take 1 tablet by mouth once daily. Per GI: Dr. Martinez tzkjrzd-vpazmoncm-cantlvx D3 500 mg-5 mcg (200 unit) per tablet Take by mouth. (Patient not taking: Reported on 09/26/2022) ursodiol (PAOLA) 250 mg tablet Take 250 mg by mouth twice daily. No current facility-administered medications on file prior to visit. Social History Social History Tobacco Use Smoking status: Never Smokeless tobacco: Never Substance Use Topics Alcohol use: Yes Comment: occasional Drug use: No Review of Symptoms REVIEW OF SYSTEMS SEE HPI EXAM: BP 120/72 Pulse 82 Resp 14 Wt 59.4 kg (131 lb) LMP 10/14/2005 BMI 24.55 kg/m? General Appearance: Well appearing, alert, in no acute distress, well-hydrated, well nourished.. Skin: Skin color, texture, turgor normal, no suspicious rashes or lesions. Lungs: Lungs clear to auscultation. No wheezing, rhonchi, rales.. Heart: RRR without murmur, gallop, or rubs. No ectopy. Musculoskeletal: No joint swelling, de (more content not included)... [facility] 09-16-2023 Note HNO ID: [id number] Author: Jody Duron Ma Service: ? Author Type: ? Type: Progress Notes Filed: 09/17/2023 3:23 PM Note Text: View External Labs - Miscellaneous Lab [ID [id number]] [facility] 09-16-2023 History of Present illness Narrative View External Labs - Miscellaneous Lab [ID [id number]] documented in this encounter [facility] 09-05-2023 Note HNO ID: [id number] Author: Gloria Montana Ma Service: ? Author Type: ? Type: Progress Notes Filed: 09/05/2023 11:52 AM Note Text: View External Imaging - Ultrasound [ID [id number]] [facility] 09-05-2023 History of Present illness Narrative View External Imaging - Ultrasound [ID [id number]] documented in this encounter [facility] 08-28-2023 Note Patient Outreach (IN [facility]) ROBBIN MORSE ([id number]) 1955 F Date Time Provider Department 08/28/23 ELVIS CULP INTKATERINE During your visit today, we recorded the following information about you: Allergies As of Date: 08/28/2023 Noted Allergy Reaction ACTOS (PIOGLITAZONE HCL) 04/19/2017 7 - Swelling Comments: dyspnea CARDIZEM (DILTIAZEM HCL) 01/19/2019 14 - Other: See Comments Comments: states it makes her blood sugar tali high FERROUS SULFATE 03/08/2022 14 - Other: See Comments Comments: Upset stomach JANUVIA (SITAGLIPTIN) 05/02/2017 12 - Shortness of Breath Comments: chest pain and shortness of breath LIPITOR (ATORVASTATIN CALCIUM) 11/04/2012 14 - Other: See Comments Comments: myalgia LISINOPRIL 02/14/2021 14 - Other: See Comments Comments: elevated creatinine, swelling PRAVASTATIN 11/06/2013 14 - Other: See Comments Comments: Leg cramps ZOCOR (SIMVASTATIN) 09/10/2011 5 - Intolerance Date Reviewed: 04/03/2023 Reviewed by: Elvis Culp MD - Fully Assessed Visit Diagnosis:Encounter for screening mammogram for breast cancer [Z12.31] Order(s):ELEANOR SCREENING [[id number]] Order #: [id number] FUTURE Prescriptions as of 09/02/2023 - metFORMIN (GLUCOPHAGE) 500 mg tablet Take 2 tablets by mouth twice daily. - glimepiride (AMARYL) 4 mg tablet Take 1 tablet by mouth daily with breakfast. - hydroCHLOROthiazide 12.5 mg capsule Take 1 capsule by mouth once daily. - potassium chloride ER (KLOR-CON) 20 mEq tablet Take 1 tablet by mouth once daily. - cholecalciferol (VITAMIN D) 1,000 unit tab tablet Take 1,000 Units by mouth twice daily. - magnesium oxide (MAG-OX) 400 mg (241.3 mg magnesium) tablet Take 1 tablet by mouth twice daily. - carvedilol (COREG) 6.25 mg tablet Take 1 tablet by mouth twice daily with meals. Per Cardio, Dr. Groves - famotidine (PEPCID) 40 mg tablet Take 1 tablet by mouth once daily. Per GI: Dr. Martinez - njlajvy-qifdsyedf-iclgyto D3 500 mg-5 mcg (200 unit) per tablet Take by mouth. - ursodiol (PAOLA) 250 mg tablet Take 250 mg by mouth twice daily. Problem List As Of Date 08/28/2023 Noted Resolved Anxiety [F41.9] 06/30/2009 12/29/2015 Cervicalgia [M54.2] 06/30/2009 12/29/2015 Other and unspecified hyperlipidemia [E78.5] 08/25/2009 11/06/2013 Hyperlipidemia, mixed [E78.2] 11/04/2012 Essential hypertension, benign [I10] 11/04/2012 Type 2 diabetes mellitus with stage 3b chronic *01/17/2017 Atrial fibrillation (HCC) [I48.91] 01/17/2017 05/16/2017 Chronic anticoagulation [Z79.01] 01/22/2017 Moderate mitral regurgitation [I34.0] 01/22/2017 Pulmonary hypertension (HCC) [I27.20] 01/22/2017 Paroxysmal atrial fibrillation (HCC) [I48.0] 05/16/2017 Iron deficiency anemia due to chronic blood los*09/19/2018 Thrombocytopenia (HCC) [D69.6] 12/23/2018 Leukopenia [D72.819] 12/23/2018 Vitamin B12 deficiency [E53.8] 12/24/2018 SANCHEZ (nonalcoholic steatohepatitis) [K75.81] 07/24/2021 Cirrhosis, nonalcoholic (HCC) [K74.60] 07/24/2021 Multiple gastric ulcers [K25.9] 07/24/2021 Secondary esophageal varices with bleeding (HCC*07/24/2021 Stage 3b chronic kidney disease (HCC) [N18.32] 08/21/2021 Diabetic eye exam (HCC) [Z01.00, E11.9] 12/20/2021 Encounter for Medicare annual wellness exam [Z0*03/08/2022 Living will on file at physician's office [Z78.*03/08/2022 Advance directive discussed with patient [Z71.8*03/08/2022 Renal stone [N20.0] 09/29/2022 Closed nondisplaced fracture of left patella [S*04/03/2023 04/03/2023 Encounter Status:Closed by BRONSON GARCÍA on 09/02/23 [facility] 07-31-2023 Note HNO ID: [id number] Author: Moses Serra LPN Service: ? Author Type: ? Type: Progress Notes Filed: 07/31/2023 9:50 PM Note Text: Scan on 07/30/2023 4:23 PM by Provider, SEE JohnsonC: Consultation - Ophthalmology [facility] 07-22-2023 Miscellaneous Notes The following approved medication requests have been transmitted electronically. Requested Prescriptions Signed Prescriptions Disp Refills metFORMIN (GLUCOPHAGE) 500 mg tablet 360 tablet 1 Sig: Take 2 tablets by mouth twice daily. Authorizing Provider: ELVIS CULP glimepiride (AMARYL) 4 mg tablet 90 tablet 1 Sig: Take 1 tablet by mouth daily with breakfast. Authorizing Provider: ELVIS CULP MD Last office visit: 04/03/23 F/u scheduled: 10/03/23 Jody Duron Ma documented in this encounter [facility] 06-20-2023 History of Present illness Narrative Clinical Care Team: -Referring Provider for today's consult: America Hinds MD -Primary Care Provider: Elvis Culp History of Present Illness Robbin Morse is a 67 y.o. female who presents to the [facility] today for follow-up regarding her diagnosis of cirrhosis. I have reviewed her medical, surgical, family and social history and have updated medication and allergy information in the computerized patient record. 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 Her liver disease has been complicated by bleeding EV and she is undergoing banding locally She is is doing well no bleeding ascites or edema, she denies any confusion. She is planning a trip to [place] in december of 2022 Otherwise, she denies any recent fevers, chills, night sweats, unexpected weight loss, any new visual complaints, headaches, sore throat, heartburn, dysphagia, cough, chest pain, shortness of breath, nausea, vomiting, abdominal pain, diarrhea, constipation, melena, hematochezia, dysuria, hematuria, arthralgias, myalgias, insomnia, or rashes. Medications Current Outpatient Medications Medication Sig carveDILOL 6.25 MG tablet Take 6.25 mg by mouth. Cholecalciferol (Vitamin D3) 50 MCG (1999 UT) tablet colestipol 1 g tablet Take 1 g by mouth 2 times daily. famotidine 40 MG tablet Take 40 mg by mouth daily. ferrous sulfate 324 (65 Fe) MG Tab DR tablet Take 324 mg by mouth 2 times daily. gliMEPIride 4 MG tablet Take 1 tablet by mouth daily with breakfast. hydroCHLOROthiazide 12.5 MG capsule Take 12.5 mg by mouth daily. magnesium oxide 400 MG tablet Take 400 mg by mouth 2 times daily. metFORMIN 500 MG tablet Take 1,000 mg by mouth 2 times daily. potassium chloride 20 MEQ Tab CR tablet Take 20 mEq by mouth daily. 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 MG tablet Take 250 mg by mouth 2 times daily. Review of Systems Please refer to the above [facility] for her pertinent positive and negatives Physical Exam BP 130/60 (BP Location: Right arm, BP Position: Sitting) Pulse 76 Resp 18 Ht 1.549 m (5' 1 ) Wt 60.8 kg (134 lb 1.6 oz) SpO2 98% BMI 25.34 kg/m Smoking Status Never Constitutional: Well developed, well nourished female in no acute distress. Oriented to person, place, and time. HEENT: Normocephalic, pupils equal and round, negative for any scleral icterus. Normal appearing oropharynx without any appreciable cervical lymphadenopathy. Abdominal: Soft, nontender, nondistended with normal bowel sounds without any appreciable ascites. hepatosplenomegaly. Extremities: No LE edema. Negative for any asterixis. Skin: Negative for any appreciable rashes. Negative for palmar erythema. Laboratory Evaluation I have reviewed her pertinent laboratory data in the computerized patient record. Outside labs reviewed 09/18/22 Na 137 K 3.9 Cl 104 CO2 104 BUN 26 Cr 1.28 AST 35 ALT 31 Alk Phos 79 T bili 0.7 Albumin 3.7 WBC 3.8 Hgb 10 Plt 64 Outside labs reviewed 05/24/23 Na 135 K 4.2 Cl 104 CO2 24 BUN 19 Cr 1.3 AST 36 ALT 34 Alk Phos 104 T bili 0.7 Albumin 3.3 WBC 2.9 Hgb 9.5 Plt 51 AFP 7.4 Imaging/Procedures Colonoscopy 2017 no polyps noted EGD 09/10/22 Grade I EV banded with incomplete eradication PHG Normal duodenum RUQ US 11/19/22 Cirrhosis no concerning lesion Assessment Robbin Morse is a 67 y.o. 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 Her liver disease is well compensated other than her EV for which she is undergoing serial banding. Plan - Given her underlying cirrhosis, I recommend HCC screening every 6 months with an abdominal imaging study in conjunction with a serum AFP. She will get her imaging updated locally. - Labs (BMP, LFTs, INR) should be performed every 3-4 months with an updated MELD score. - She will continue to get her banding localy - strict 2 gram, low sodium diet. - She is cleared to go on her cruise to [place] in 12/2023 For follow up, she will return to my clinic in 6 months Sincerely, America Hinds M.D. [employer] [facility] Gastroenterology, Hepatology, and Nutrition The [address], [address] [place] [address] This RN verified patient's Name and documented in this encounter [facility] 06-20-2023 History of Present illness Narrative Clinical Care Team: -Referring Provider for today's consult: America Hinds MD -Primary Care Provider: Elvis Culp History of Present Illness Robbin Morse is a 67 y.o. female who presents to the [facility] today for follow-up regarding her diagnosis of cirrhosis. I have reviewed her medical, surgical, family and social history and have updated medication and allergy information in the computerized patient record. 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 Her liver disease has been complicated by bleeding EV and she is undergoing banding locally She is is doing well no bleeding ascites or edema, she denies any confusion. She is planning a trip to [place] in december of 2022 Otherwise, she denies any recent fevers, chills, night sweats, unexpected weight loss, any new visual complaints, headaches, sore throat, heartburn, dysphagia, cough, chest pain, shortness of breath, nausea, vomiting, abdominal pain, diarrhea, constipation, melena, hematochezia, dysuria, hematuria, arthralgias, myalgias, insomnia, or rashes. Medications Current Outpatient Medications Medication Sig carveDILOL 6.25 MG tablet Take 6.25 mg by mouth. Cholecalciferol (Vitamin D3) 50 MCG (2000 UT) tablet colestipol 1 g tablet Take 1 g by mouth 2 times daily. famotidine 40 MG tablet Take 40 mg by mouth daily. ferrous sulfate 324 (65 Fe) MG Tab DR tablet Take 324 mg by mouth 2 times daily. gliMEPIride 4 MG tablet Take 1 tablet by mouth daily with breakfast. hydroCHLOROthiazide 12.5 MG capsule Take 12.5 mg by mouth daily. magnesium oxide 400 MG tablet Take 400 mg by mouth 2 times daily. metFORMIN 500 MG tablet Take 1,000 mg by mouth 2 times daily. potassium chloride 20 MEQ Tab CR tablet Take 20 mEq by mouth daily. 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 MG tablet Take 250 mg by mouth 2 times daily. Review of Systems Please refer to the above [facility] for her pertinent positive and negatives Physical Exam BP 130/60 (BP Location: Right arm, BP Position: Sitting) Pulse 76 Resp 18 Ht 1.549 m (5' 1 ) Wt 60.8 kg (134 lb 1.6 oz) SpO2 98% BMI 25.34 kg/m Smoking Status Never Constitutional: Well developed, well nourished female in no acute distress. Oriented to person, place, and time. HEENT: Normocephalic, pupils equal and round, negative for any scleral icterus. Normal appearing oropharynx without any appreciable cervical lymphadenopathy. Abdominal: Soft, nontender, nondistended with normal bowel sounds without any appreciable ascites. hepatosplenomegaly. Extremities: No LE edema. Negative for any asterixis. Skin: Negative for any appreciable rashes. Negative for palmar erythema. Laboratory Evaluation I have reviewed her pertinent laboratory data in the computerized patient record. Outside labs reviewed 09/18/22 Na 137 K 3.9 Cl 104 CO2 104 BUN 26 Cr 1.28 AST 35 ALT 31 Alk Phos 79 T bili 0.7 Albumin 3.7 WBC 3.8 Hgb 10 Plt 64 Outside labs reviewed 05/24/23 Na 135 K 4.2 Cl 104 CO2 24 BUN 19 Cr 1.3 AST 36 ALT 34 Alk Phos 104 T bili 0.7 Albumin 3.3 WBC 2.9 Hgb 9.5 Plt 51 AFP 7.4 Imaging/Procedures Colonoscopy 2017 no polyps noted EGD 09/10/22 Grade I EV banded with incomplete eradication PHG Normal duodenum RUQ US 11/19/22 Cirrhosis no concerning lesion Assessment Robbin Morse is a 67 y.o. 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 Her liver disease is well compensated other than her EV for which she is undergoing serial banding. Plan - Given her underlying cirrhosis, I recommend HCC screening every 6 months with an abdominal imaging study in conjunction with a serum AFP. She will get her imaging updated locally. - Labs (BMP, LFTs, INR) should be performed every 3-4 months with an updated MELD score. - She will continue to get her banding localy - strict 2 gram, low sodium diet. - She is cleared to go on her cruise to [place] in 12/2023 For follow up, she will return to my clinic in 6 months Sincerely, America Hinds M.D. [employer] [facility] Gastroenterology, Hepatology, and Nutrition The [address], [address] [place] [address] This RN verified patient's Name and Order given to patient to complete locally documented in this encounter [facility] 06-20-2023 Instructions America Hinds MD - 06/20/2023 10:30 AM EDT Thank you for coming into clinic today. Your doctor was Dr. America Hinds. The following are your instructions: - Please continue to abstain from all alcohol - For pain please use tylenol/acetominophen it is safe in doses of 2000 mg or less. Avoid using NSAIDs for pain, these include ibuprofen, aleve, motrin, and aspirin. - Please avoid raw shellfish and sea food If you have any questions please do not hesitate to contact our clinic, the phone number for the [facility] clinic is [phone], the Fax is [phone] documented in this encounter [facility] 06-20-2023 Instructions America Hinds MD - 06/20/2023 10:30 AM EDT Thank you for coming into clinic today. Your doctor was Dr. America Hinds. The following are your instructions: - Please continue to abstain from all alcohol - For pain please use tylenol/acetominophen it is safe in doses of 2000 mg or less. Avoid using NSAIDs for pain, these include ibuprofen, aleve, motrin, and aspirin. - Please avoid raw shellfish and sea food If you have any questions please do not hesitate to contact our clinic, the phone number for the [facility] clinic is [phone], the Fax is [phone] documented in this encounter [facility] 06-05-2023 Note HNO ID: [id number] Author: Ginna Hernandez MA Service: ? Author Type: Process Manager Type: Progress Notes Filed: 06/05/2023 8:24 PM Note Text: Scan on 05/29/2023 9:52 AM by ProviderElizabeth PA-C: Miscellaneous Lab Ginna Hernandez MA' [facility] 06-05-2023 History of Present illness Narrative Scan on 05/29/2023 9:52 AM by ProviderElizabeth PA-C: Miscellaneous Lab Ginna Hernandez MA' documented in this encounter [facility] 05-29-2023 Miscellaneous Notes Patient notified and voiced understanding. Ginna Hernandez MA Let patient know urine labs ok. Her calcium level is almost back to normal and her parathyroid hormone is low. Since improving want to repeat in a month. Orders placed. documented in this encounter [facility] 04-25-2023 Miscellaneous Notes Spoke with Fernanda who states she doesn't see where the problem was. Advises that the potassium chloride ER 20 mEq was shipped on 6/27 and HCTZ shipped 04/24. Called and advised pt of same. She will contact [facility] if she does not receive medications. Moses Serra LPN Can we contact [facility] and find out what alternative to Klor-con 20 david they have since they told patient this one is not available but provided no info for her to let us know what is through them? documented in this encounter [facility] 04-22-2023 Miscellaneous Notes The following approved medication requests have been transmitted electronically. Requested Prescriptions Signed Prescriptions Disp Refills hydroCHLOROthiazide 12.5 mg capsule 90 capsule 3 Sig: Take 1 capsule by mouth once daily. Authorizing Provider: ELVIS CULP potassium chloride ER (KLOR-CON) 20 mEq tablet 90 tablet 3 Sig: Take 1 tablet by mouth once daily. Authorizing Provider: ELVIS CULP MD Last office visit: 04/03/23 F/u scheduled: 10/03/23 Jody Duron Ma documented in this encounter [facility] documented as of this encounter (statuses as of 04/23/2023) [facility] History of Past illness Narrative* Problem Noted Date Resolved Date Closed nondisplaced fracture of left patella 04/202304/03/2023 Overview: 09/2022 Atrial fibrillation 01/17/2017 05/16/2017 Other and unspecified hyperlipidemia 08/25/2009 11/06/2013 Anxiety 06/30/2009 12/29/2015 Cervicalgia 06/30/2009 12/29/2015 documented as of this encounter (statuses as of 04/25/2023) [facility] History of Past illness Narrative* Problem Noted Date Diagnosed Date Resolved Date Closed nondisplaced fracture of left patella 3 04/03/2023 Overview: 09/2022 Atrial fibrillation 01/17/2017 05/16/20 17 Other and unspecified hyperlipidemia 08/25/2009 11/06/2013 Anxiety 06/30/2009 12/29/2015 Cervicalgia 06/30/2009 12/29/2015 documented as of this encounter (statuses as of 05/29/2023) [facility] History of Past illness Narrative* Problem Noted Date Diagnosed Date Resolved Date Closed nondisplaced fracture of left patella 3 04/03/2023 Overview: 09/2022 Atrial fibrillation 01/17/2017 05/16/20 17 Other and unspecified hyperlipidemia 08/25/2009 11/06/2013 Anxiety 06/30/2009 12/29/2015 Cervicalgia 06/30/2009 12/29/2015 documented as of this encounter (statuses as of 06/06/2023) [facility] History of Past illness Narrative* Problem Noted Date Diagnosed Date Resolved Date Closed nondisplaced fracture of left patella 3 04/03/2023 Overview: 09/2022 Atrial fibrillation 01/17/2017 05/16/20 17 Other and unspecified hyperlipidemia 08/25/2009 11/06/2013 Anxiety 06/30/2009 12/29/2015 Cervicalgia 06/30/2009 12/29/2015 documented as of this encounter (statuses as of 07/23/2023) [facility] History of Past illness Narrative* Problem Noted Date Diagnosed Date Resolved Date Closed nondisplaced fracture of left patella 3 04/03/2023 Overview: 09/2022 Atrial fibrillation 01/17/2017 05/16/20 17 Other and unspecified hyperlipidemia 08/25/2009 11/06/2013 Anxiety 06/30/2009 12/29/2015 Cervicalgia 06/30/2009 12/29/2015 documented as of this encounter (statuses as of 09/03/2023) [facility] History of Past illness Narrative* Problem Noted Date Diagnosed Date Resolved Date Closed nondisplaced fracture of left patella 3 04/03/2023 Overview: 09/2022 Atrial fibrillation 01/17/2017 05/16/20 17 Other and unspecified hyperlipidemia 08/25/2009 11/06/2013 Anxiety 06/30/2009 12/29/2015 Cervicalgia 06/30/2009 12/29/2015 documented as of this encounter (statuses as of 09/05/2023) [facility] History of Past illness Narrative* Problem Noted Date Diagnosed Date Resolved Date Closed nondisplaced fracture of left patella 3 04/03/2023 Overview: 09/2022 Atrial fibrillation 01/17/2017 05/16/20 17 Other and unspecified hyperlipidemia 08/25/2009 11/06/2013 Anxiety 06/30/2009 12/29/2015 Cervicalgia 06/30/2009 12/29/2015 documented as of this encounter (statuses as of 09/18/2023) [facility] History of Past illness Narrative* Problem Noted Date Diagnosed Date Resolved Date Closed nondisplaced fracture of left patella 3 04/03/2023 Overview: 09/2022 Atrial fibrillation 01/17/2017 05/16/20 17 Other and unspecified hyperlipidemia 08/25/2009 11/06/2013 Anxiety 06/30/2009 12/29/2015 Cervicalgia 06/30/2009 12/29/2015 documented as of this encounter (statuses as of 12/16/2023) [facility] NoteHNO ID: [id number] Author: Elvis Culp MD Service: ? Author Type: Physician Type: Progress Notes Filed: 04/04/2023 8:59 PM Note Text: Medicare Yearly Visit Medical B eligibilty date 08/28/2020 Date of last exam 03/08/2023 PAST MEDICAL HISTORY PAST MEDICAL HISTORY Diagnosis Date Advance directive discussed with patient 03/08/2022 Discussed 02/2022 Anxiety 06/30/2009 Cirrhosis, nonalcoholic (HCC) 07/24/[address] Martinez Diabetic eye exam ([facility]) 12/20/2021 Last done 12/19/21 Mild non proliterative retinopathy ou [facility] Essential hypertension, benign 11/04/2012 Hyperlipidemia, mixed 11/04/2012 Iron deficiency anemia due to chronic blood loss 09/19/2018 Leukopenia 12/23/[address] 03/08/2022 DPA: Dandre () Medicare annual wellness visit, initial 03/08/2022 Medicare Part B: 08/28/2020 Last done: 03/08/2022 Moderate mitral regurgitation 01/22/2017 Multiple gastric ulcers 07/24/202106/2021 SANCHEZ (nonalcoholic steatohepatitis) 07/24/[address] Martinez Paroxysmal atrial fibrillation ([facility]) 05/16/2017 Pulmonary hypertension, secondary 01/22/2017 S/P ablation of atrial fibrillation 01/19/2019 Dr. Mercado Secondary esophageal varices with bleeding ([facility]) 07/24/2021 Seeing Gastro: had banding 06/2021 Stage 3b chronic kidney disease ([facility]) 08/21/2021 Thrombocytopenia ([facility]) 12/23/2018 Type 2 diabetes mellitus with stage 3 chronic kidney disease, without long-term current use of insulin ([facility]) 01/17/2017 Type II or unspecified type diabetes mellitus without mention of complication, not stated as uncontrolled 06/30/2009 Vitamin B12 deficiency 12/24/2018 PAST SURGICAL HISTORY PAST SURGICAL HISTORY Procedure Laterality Date COLONOSCOPY FLX DX W/COLLJ SPEC WHEN PFRMD 10/08/2018 repeat in 5 years due to family history ESOPHAGUS ENDOSCOPY W VARICES BANDING 07/24/2021 Dr. Martinez PAST SURGICAL HISTORY OF c section x 2 REMOVAL GALLBLADDER ALLERGIES: Actos [Pioglitazone Hcl], Cardizem [Diltiazem Hcl], Januvia [Sitagliptin], Lipitor [Atorvastatin Calcium], Lisinopril, Pravastatin, and Zocor [Simvastatin] Medications reviewed: Yes FAMILY HISTORY FAMILY HISTORY Problem Relation Age of Onset Colon Cancer Mother Diabetes Father other (congestive heart failure) Father other (GERD) Sister SOCIAL HISTORY: SOCIAL HISTORY Social History Tobacco Use Smoking status: Never Smoker Smokeless tobacco: Never Used Substance Use Topics Alcohol use: Yes Comment: occasional Drug use: No Robbin works out regularly 3-4 times per week with walking. She watches her diet for sodium, low fat and low cholesterol most of the time. List of current specialists seen: Dr. Martinez (Gastro) Dr. Groves (Cardio) Dr. Aburto (Optho) End of Live Planning discussed including patients advanced directive wishes: Yes I am willing to follow Robbin's advanced directives. PHQ-2 / Depression screen Depression Screening 07/29/2021 03/08/2022 09/26/2022 04/03/2023 PHQ-2 Score 1 0 0 0 HORACIO-2 Total Score - - - - Depression screening tool completed and reviewed. Based on score and interview, patient is not at risk for depression. Screening tool discussed with patient, and I recommended no further intervention at this time. Functional Ability/Safety Screen 1. Was the patient's timed Up and Go test unsteady or longer than 30 seconds? No 2. Does the patient need help with the phone, transportation, shopping,preparing meals, housework, laundry, medications or managing money? No 3. Does your home have rugs in the hallway, lack of grab bars in the bathroom(Y), lack of handrails on the stairs or have poor lighting? No Hearing Evaluation: normal PHYSICAL EXAM BP 124/68 (BP Site: Right Arm, BP Position: Sitting, BP Cuff Size: Regular Adult) Pulse 72 Resp 16 Ht 155.6 cm (5' 1.25 ) Wt 61.7 kg (136 lb) LMP 10/14/2005 BMI 25.49 kg/m? Alert and oriented X 3: YES Body mass index is 25.49 kg/m?. Visual acuity: seeing optho See below ASSESSMENT/PLAN: 67 year old female The following prevention plan was discussed during the office visit and provided to the patient: See below Elvis Culp MD Chief Complaint Patient presents with: Medicare Wellness Exam HPI Robbin Morse is a 67 year old female who presents here today for Chronic Medical Conditions. and Medicare Annual Visit. Office visit - medicare wellness patient with Hx of DM 2, Hyperlipidemia, HTN, A. Fib, Valvular heart disease, CKD, Iron Def, thrombocytopenia, Leukopenia, B12 def, Pulm HTN, esophageal varices, SANCHEZ, cirrhosis as well as those reviewed and addressed below and in ROS. Patient has been doing ok. Continues to f/u with her specialist. FBS's run 90-125 (most of the time 110-115) Suffered a broken left knee cap in Sep 2022 and saw ortho. Did not need surgery. Office visit - 6 month follow up 09/26/2022 patient with Hx of DM 2, Hyperlipidemia, (more content not included)...[facility]03-09-2023 NoteHNO ID: [id number] Author: Mera Maxwell LPN Service: ? Author Type: ? Type: Progress Notes Filed: 01/03/2023 3:16 PM Note Text: Scan on 01/03/2023 2:52 PM by External Provider: X-ray Karen Maxwell [facility]03-09-2023 History of Present illness Narrative* Mera Maxwell LPN - 01/03/2023 3:14 PM EST Scan on 01/03/2023 2:52 PM by External Provider: X-ray Karen Maxwell LPN [facility]23 NoteHNO ID: [id number] Author: Ginna Hernandez MA Service: ? Author Type: Process Manager Type: Progress Notes Filed: 12/05/2022 8:40 PM Note Text: Scan on 12/05/2022 3:44 PM by External Provider: X-ray Please review. Ginna Hernandez [facility]02-08-2023 History of Present illness Narrative* Ginna Hernandez MA - 12/05/2022 5:30 PM EST Scan on 12/05/2022 3:44 PM by External Provider: X-ray Please review. Ginna Hernandez MA documented in this [facility]01-30-2023 Miscellaneous Notes* Telephone Encounter - Elvis Culp MD - 11/26/2022 2:07 PM EST The following approved medication requests have been transmitted electronically. Requested Prescriptions Signed Prescriptions Disp Refills magnesium oxide (MAG-OX) 400 mg (241.3 mg magnesium) tablet 60 tablet 11 Sig: Take 1 tablet by mouth twice daily. Authorizing Provider: ELVIS CULP MD * Telephone Encounter - Ginna Hernandez MA - 11/26/2022 1:38 PM EST Patient has been identified by name and date of : Yes Requested Prescriptions Pending Prescriptions Disp Refills magnesium oxide (MAG-OX) 400 mg (241.3 mg magnesium) tablet 60 tablet 11 Sig: Take 1 tablet by mouth twice daily. RX INSTRUCTIONS: Patient aware RX will be sent to pharmacy. No need to notify patient. Ginna Hernandez MA Rolando: 08/2022 Nov: 03/2023 Last refill; 11/2021 [facility]12[facility]-2022 Miscellaneous Notes* Telephone Encounter - Elvis Culp MD - 09/27/2022 4:36 PM EST Noted. * Telephone Encounter - Gloria Montana Ma - 09/27/2022 4:13 PM EST Spoke to patient who does not want to proceed with medication. Already has trouble eating due to cirrhosis and does not want to add anymore medication at this time. Patient will try to exercise. Gloria Montana Ma * Telephone Encounter - Elvis Culp MD - 09/27/2022 4:03 PM EST Let patient know her A1c is slightly better at 7.2%. I was 7.3% and would like to see below 7%. I would like to add on Jardiance 10 mg a day. If ok will send in script. Iron studies were improved. Con current Iron replacement. Lipid panel showed Trigs ok at 143 (goal<150), HDL very good at 72 (goal>50) and LDL slightlyelevated at 109 (goal<100), cont work on diet and weight loss. documented in this encounterL[facility]11-30-2022 History of Present illness Narrative* Elvis Culp MD - 09/26/2022 10:20 AM EST Chief Complaint Patient presents with: F/U 6 months HPI Robbin Morse is a 66 year old female who presents here today for 6 month follow up. patient with Hx of DM 2, Hyperlipidemia, HTN, A. Fib, Valvular heart disease, CKD, Iron Def, thrombocytopenia, Leukopenia, B12 def, Pulm HTN, esophageal varices, SANCHEZ, cirrhosis as well as those reviewed and addressed below and in ROS. Has keerthi doing well. Her Metoprolol was changed to Coreg by Cardio per request of Gastro. Saw Gastroyesterday and he stopped her PPI and started Pepcid. Patient has been doing ok. FBS: high 80's-120. Today was 109. February of passed a kidney stone back in Jun 2022. Brought stone in with her. Past medical history, appointments, medications, allergies reviewed. Previous Medical History PAST MEDICAL HISTORY Diagnosis Date Advance directive discussed with patient 03/08/2022 Discussed 02/2022 Anxiety 06/30/2009 Cirrhosis, nonalcoholic (HCC) 07/24/[address] Martinez Diabetic eye exam (HCC) 12/20/2021 Last done 12/19/21 Mild non proliterative retinopathy ou [facility] Essential hypertension, benign 11/04/2012 Hyperlipidemia, mixed 11/04/2012 Iron deficiency anemia due to chronic blood loss 09/19/2018 Leukopenia 12/23/[address] 03/08/2022 DPA: Dandre () Medicare annual wellness visit, initial 03/08/2022 Medicare Part B: 08/28/2020 Last done: 03/08/2022 Moderate mitral regurgitation 01/22/2017 Multiple gastric ulcers 07/24/202106/2021 SANCHEZ (nonalcoholic steatohepatitis) 07/24/[address] Martinez Paroxysmal atrial fibrillation (HCC) 05/16/2017 Pulmonary hypertension, secondary 01/22/2017 S/P ablation of atrial fibrillation 01/19/2019 Dr. Mercado Secondary esophageal varices with bleeding ([facility]) 07/24/2021 Seeing Gastro: had banding 06/2021 Stage 3b chronic kidney disease (HCC) 08/21/2021 Thrombocytopenia (HCC) 12/23/2018 Type 2 diabetes mellitus with stage 3 chronic kidney disease, without long-term current use of insulin (HCC) 01/17/2017 Type II or unspecified type diabetes mellitus without mention of complication, not stated as uncontrolled 06/30/2009 Vitamin B12 deficiency 12/24/2018 Previous Surgical History PAST SURGICAL HISTORY Procedure Laterality Date COLONOSCOPY FLX DX W/COLLJ SPEC WHEN PFRMD 10/08/2018 repeat in 5 years due to family history ESOPHAGUS ENDOSCOPY W VARICES BANDING 07/24/2021 Dr. Martinez PAST SURGICAL HISTORY OF c section x 2 REMOVAL GALLBLADDER Family History FAMILY HISTORY Problem Relation Age of Onset Colon Cancer Mother Diabetes Father other (congestive heart failure) Father other (GERD) Sister Patient Allergies ALLERGIES Allergen Reactions Actos [Pioglitazone* Swelling dyspnea Cardizem [Diltiazem* Other: See Comments states it makes her blood sugar tali high Ferrous Sulfate Other: See Comments Upset stomach Januvia [Sitaglipti* Shortness of Breath chest pain and shortness of breath Lipitor [Atorvastat* Other: See Comments myalgia Lisinopril Other: See Comments elevated creatinine, swelling Pravastatin Other: See Comments Leg cramps Zocor [Simvastatin] Intolerance Current Medications Current Outpatient Medications on File Prior to Visit Medication Sig metFORMIN (GLUCOPHAGE) 500 mg tablet Take 2 tablets by mouth twice daily. glimepiride (AMARYL) 4 mg tablet Take 1 tablet by mouth daily with breakfast. dxexftg-zslzhlsdh-dxcookb D3 500 mg-5 mcg (200 unit) per tablet Take by mouth. phenazopyridine (PYRIDIUM) 200 mg tablet Take 1 tablet by mouth three times daily as needed. magnesium oxide (MAG-OX) 400 mg (241.3 mg magnesium) tablet Take 1 tablet by mouth twice daily. hydroCHLOROthiazide 12.5 mg capsule Take 1 capsule by mouth once daily. potassium chloride ER (K-DUR, KLOR-CON) 20 mEq tablet Take 1 tablet by mouth once daily. metoprolol tartrate, short acting, (LOPRESSOR) 25 mg tablet Take 1 tablet by mouth twice daily. ursodiol (PAOLA) 250 mg tablet Take 250 mg by mouth twice daily. pantoprazole DR (PROTONIX) 40 mg tablet Take 40 mg by mouth twice daily. No current facility-administered medications on file prior to visit. Social History Social History Tobacco Use Smoking status: Never Smokeless tobacco: Never Substance Use Topics Alcohol use: Yes Comment: occasional Drug use: No Review of Symptoms REVIEW OF SYSTEMS GENERAL: No significant weight loss, malaise or fevers NECK: Negative for lumps, goiter, pain and significant neck swelling RESPIRATORY: Negative for cough, hemoptysis, wheezing, COPD, dyspnea or shortness of breath CARDIOVASCULAR: Negative for chest pain, leg swelling, hypertension, CHF or palpitations GI: No nausea, vomiting, and No heartburn or reflux symptoms. Has had some diarrhea and Friend and has made some med changes. HEMATOLOGY/LYMPHOLOGY: Negative for prolonged bleeding, bruising easily or swollen nodes ENDOCRINE: Negative for cold or heat intolerance. Rarely has symptoms of low BS's NEURO: No history of headaches, syncope, paralysis, seizures or tremors EXAM: BP 124/72 (BP Site: Right Arm, BP Position: Sitting, BP Cuff Size: Regular Adult) Pulse 80 Resp16 Wt 59.4 kg (131 lb) LMP 10/14/2005 BMI 24.55 kg/m Last 5 Encounter Wt Readings: Date: Wt: 09/26/2022 59.4 kg (131 lb) 05/02/2022 61 kg (134 lb 6.4 oz) 03/08/2022 60.3 kg (133 lb) 07/31/2021 64.4 kg (142 lb) 01/19/2021 67.7 kg (149 lb 3.2 oz) General Appearance: Well appearing, alert, in no acute distress, well-hydrated, well nourished.. Eyes: Anicteric sclera. Pupils are equally round and reactive to light. Extraocular movements are intact. . Neck: Supple, no adenopathy; thyroid symmetric, normal size, no bruits. Lungs: Lungs clear to auscultation. No wheezing, rhonchi, rales.. Heart: RRR without murmur, gallop, or rubs. No ectopy. Abdomen: Normal abdominal exam, Abdomen soft, non-tender. Bowel sounds normal. No masses, organomegaly. Extremities: No deformities, edema, skin discoloration, Good capillary refill. . Musculoskeletal: Muscular strength intact, No joint swelling, deformity, or tenderness. Peripheral Pulses: Normal. Neurologic: Gait normal. Reflexes normal and symmetric. Sensation to light touch and crainal nerves2-12 intact.. Health Maintenance List BP CONTROLLED (<130/80) due on 09/13/2021 DEPRESSION ASSESSMENT Never done COVID-19 VACCINE(4 - Booster for Moderna series) due on 11/07/2021 INFLUENZA(1) due on 06/28/2022 MAMMOGRAM due on 08/15/2022 HBA1C due on 09/20/2022 PNEUMOCOCCAL: 65+(3 - PPSV23 if available, else PCV20) due on 09/26/2022 DTAP,TDAP,TD(2 - Td or Tdap) due on 03/08/2023 SHINGRIX VACCINE(3 of 3) due on 03/10/2023 DILATED RETINAL EXAM due on 12/19/2022 URINE ALBUMIN:CREATININE RATIO due on 01/24/2023 LDL CHOLESTEROL due on 01/24/2023 SERUM CREATININE due on 01/24/2023 DIABETIC FOOT EXAM due on 03/08/2023 ANNUAL PCP TEAM CHRONIC DISEASE VISIT due on 03/08/2023 HEMOGLOBIN/HEMATOCRIT due on 03/08/2023 COLORECTAL CANCER SCREENING due on 10/08/2023 HEPATITIS B Completed BONE DENSITY Completed HEPATITIS A Completed ADVANCE DIRECTIVE DISCUSSION Completed HEPATITIS C SCREENING Completed Data reviewed Component Latest Ref Rng & Units 01/24/2022 03/08/2022 03/20/2022 09/18/2022 WBC 3.4 - 10.8 K/uL 2.97 (L) 3.8 3.8 RBC 4.14 - 5.80 M/uL 2.77 (L) 2.95 (A) Hemoglobin 12.6 - 17.7 g/dL 8.6 (L) 8.8 (A) 10 (A) Hematocrit 37.5 - 51.0 % 25.3 (L) 26.9 (A) 30.4 (A) MCV 79 - 97 fL 91.3 91.2 MCH 26.6 - 33 Pg 31.0 29.8 MCHC 31.5 - 35.7 g/dL 34.0 32.7 RDW-CV 11.5 - 15.0 % 13.9 Platelet Count 150 - 379 k/uL 66 (L) 76 (A) 64 (A) MPV 9.0 - 12.7 fL 11.1 Neut% % 66.3 Abs Neut (ANC) 1.45 - 7.50 k/uL 1.97 Lymph% % 21.2 Abs Lymph 1.00 - 4.00 k/uL 0.63 (L) [place]% % 8.4 Abs [place] <0.87 k/uL 0.25 Eosin% % 2.7 Abs Eosin <0.46 k/uL 0.08 Baso% % 0.7 Abs Baso <0.11 k/uL <0.03 Immature Gran % % 0.7 IMMATURE GRANS (ABS) <0.10 k/uL <0.03 NRBC /100 WBC 0.0 Absolute nRBC <0.01 k/uL <0.01 DTYPE Auto Protein, Total 6.3 - 8.0 g/dL 6.6 Albumin 3.2 - 4.6 gm/dL 3.7 (L) 3.4 3.7 Calcium 8.5 - 10.2 mg/dL 9.7 Bilirubin, Total 0.2 - 1.3 mg/dL 0.3 Alkaline Phosphatase 34 - 123 U/L 126 (H) AST 8 - 37 U/L 26 29 35 ALT 7 - 38 U/L 18 Glucose 74 - 106 MG/DL 125 (H) 122 (A) 118 (A) BUN 7 - 18 MG/DL 17 20 (A) 18 Creatinine 0.6 - 1.3 MG/DL 1.39 (H) 1.52 (A) 1.28 Sodium 136 - 144 mmol/L 134 (L) Potassium 3.7 - 5.1 mmol/L 4.2 Chloride 98 - 107 MEQ/L 102 103 104 CO2 21 - 32 MEQ/L 25 25 26 Anion Gap 9 - 18 mmol/L 7 (L) eGFR >=60 mL/min/1.73m 42 (L) RDW 12.3 - 15.4 % 13.5 Neutrophil % % 68.9 Lymphocyte % % 19.4 Monocyte % % 8 Eosinophil % % 2.9 Basophil % % 0.3 NEUTROPHILS ABSOLUTE 1.4 - 7.0 k/uL 2.6 LYMPHS ABSOLUTE 0.7 - 3.1 k/uL 0.73 NA 136 - 145 mmol/L 136 137 K 3.5 - 5.1 mmol/L 3.8 3.9 GFR mL/MIN 36 Total Protein 6.4 - 8.2 gm/dL 7.6 7.6 Calcium 8.5 - 10.1 mg/dL 9.6 9.6 Bili Total 0.2 - 1 mg/dL 0.6 0.7 ALT (SGPT) 12 - 78 U/L 31 31 Alk Phos Total 45 - 117 U/L 98 79 Total Cholesterol, Nonfasting <200 mg/dL 190 Triglycerides, Nonfasting <150 mg/dL 172 (H) HDL Cholesterol, Nonfasting >39 mg/dL 68 LDL Cholesterol, Nonfasting <100 mg/dL 88 Non HDL Cholesterol, Nonfasting <130 mg/dL 122 VLDL Cholesterol, Nonfasting <30 mg/dL 34 (H) Total Chol/HDL Ratio, Nonfasting <5.10 mg/dL 2.79 LDL/HDL Ratio, Nonfasting <2.54 mg/dL 1.29 Iron 41 - 186 ug/dL 36 (L) 40 (L) TIBC 232 - 386 ug/dL 368 407 (H) Transferrin Saturation 15 - 57 % 10 (L) 10 (L) Creatinine, Ur Random (UCRR) 20.0 - 300.0 mg/dL 46.6 Albumin, Urine Random mg/L <12.0 Albumin/Creat Ratio <30 mg/g <26 Hemoglobin A1C 4.3 - 5.6 % 8.2 (H) 7.3 (H) Estimated Average Glucose mg/dL 189 163 A/P ASSESSMENT/PLAN: 1. Type 2 diabetes mellitus with stage 3b chronic kidney disease, without long- term current use of insulin ([facility]) - ICD9: 250.40, 585.3, ICD10: E11.22, N18.32 (primary diagnosis) Await labs to see if changes needed. - Continue current medications - Encouraged regular aerobic exercise and weight loss - BP goal of <130/80 - LDL goal of <100 Check - HGB A1C - LIPID PANEL, NONFASTING 2. Diabetes mellitus type 2 (HCC) - ICD9: 250.00, ICD10: E11.9 - as per #1 - HGB A1C - METFORMIN 500 MG TABLET - GLIMEPIRIDE 4 MG TABLET - LIPID PANEL, NONFASTING 3. Diabetic eye exam (HCC) - ICD9: V72.0, 250.00, ICD10: Z01.00, E11.9 - up to date 4. Essential hypertension, benign - ICD9: 401.1, ICD10: I10 - good control - Continue current medication(s) - Recommended regular aerobic exercise. - Recommend home blood pressure monitoring, to bring results in on next visit - Goal of BP <130/80 - HYDROCHLOROTHIAZIDE 12.5 MG CAPSULE - LIPID PANEL, NONFASTING 5. Hyperlipidemia, mixed - ICD9: 272.2, ICD10: E78.2 - to be determined upon return of lab results - Encouraged following a low fat, low cholesterol diet. - Discussed the benefits of regular aerobic exercise and weight loss. - Encouraged following a low carbohydrate, healthy oil intake diet. - Continue current therapy. - LIPID PANEL, NONFASTING 6. Paroxysmal atrial fibrillation (HCC) - ICD9: 427.31, ICD10: I48.0 - management per cardio 7. Pulmonary hypertension (HCC) - ICD9: 416.8, ICD10: I27.20 - as per #6 8. Stage 3b chronic kidney disease (HCC) - ICD9: 585.3, ICD10: N18.32 - improved no changes in Tx. 9. Iron deficiency anemia due to chronic blood loss - ICD9: 280.0, ICD10: D50.0 check - IRON + TIBC: cont replacement 10. Vitamin B12 deficiency - ICD9: 266.2, ICD10: E53.8 - cont replacement 11. Secondary esophageal varices with bleeding (HCC) - ICD9: 456.20, ICD10: I85.11 - management per gastro 12. SANCHEZ (nonalcoholic steatohepatitis) - ICD9: 571.8, ICD10: K75.81 - as per #11 13. Cirrhosis, nonalcoholic (HCC) - ICD9: 571.5, ICD10: K74.60 - as per #11 14. Thrombocytopenia (HCC) - ICD9: 287.5, ICD10: D69.6 - stable and secondary to #13 15. Kidney stone - ICD9: 592.0, ICD10: N20.0 Check - CALCULI ANALYSIS Requested Prescriptions Signed Prescriptions Disp Refills metFORMIN (GLUCOPHAGE) 500 mg tablet 360 tablet 1 Sig: Take 2 tablets by mouth twice daily. glimepiride (AMARYL) 4 mg tablet 90 tablet 1 Sig: Take 1 tablet by mouth daily with breakfast. hydroCHLOROthiazide (HYDRODIURIL, ESIDRIX) 12.5 mg capsule 90 capsule 3 Sig: Take 1 capsule by mouth once daily. potassium chloride ER (K-DUR, KLOR-CON) 20 mEq tablet 90 tablet 3 Sig: Take 1 tablet by mouth once daily. carvedilol (COREG) 6.25 mg tablet Sig: Take 1 tablet by mouth twice daily with meals. Per Cardio, Dr. Groves famotidine (PEPCID) 40 mg tablet Sig: Take 1 tablet by mouth once daily. Per GI: Dr. Martinez F/u 6 months extensive. Will order labs at that time. Elvis Culp MD documented in this [facility]11-14-2022 History of Present illness Narrative* Moses Serra LPN - 09/10/2022 11:10 AM EST EGD done by Dr Martinez. Pt has appointment with you 09/26/22. Scan on 09/10/2022 8:16 AM by External Provider: EGD Scan on 09/10/2022 8:17 AM by External Provider: Miscellaneous Clinical Documents documented in this [facility]10-21-2022 Miscellaneous Notes* Telephone Encounter - Jessica Vasquez Ma - 08/17/2022 10:07 AM EDT Please see pt message and advise Jessica Vasquez Ma documented in this [facility]09-16-2022 Miscellaneous Notes* Telephone Encounter - Suzie Lechuga PA-C - 07/13/2022 2:22 PM EDT Patient scheduled 09/26/22 * Telephone Encounter - Ginna Hernandez MA - 07/13/2022 2:00 PM EDT Patient has been identified by name and date of : Yes Requested Prescriptions Pending Prescriptions Disp Refills metFORMIN (GLUCOPHAGE) 500 mg tablet 360 tablet 1 Sig: Take 2 tablets by mouth twice daily. glimepiride (AMARYL) 4 mg tablet 90 tablet 1 Sig: Take 1 tablet by mouth daily with breakfast. RX INSTRUCTIONS: Patient aware RX will be sent to pharmacy. No need to notify patient. Ginna Hernandez MA Rolando: 02/2022 Nov appointment scheduled Last refill: 02/2022 [facility] Miscellaneous Notes* Telephone Encounter - Liv Garza LPN - 05/03/2022 2:31 PM EDT Patient notified and verbalized understanding of instructions given.Liv Garza LPN * Telephone Encounter - Dg Willis APRN.CNP - 05/03/2022 1:22 PM EDT Please notify that the urine culture showed no infection. May continue taking the antibiotic if symptoms are improving. If symptoms persist/worsen f/u with primary care. Hematuria noted on ua, patient should have urine retested with pcp in 2-4 weeks to see if persisting. documented [facility] this [facility]07-[facility]-2022 Instructions* Patient Instructions* Emili Cano APRN.CNP - 05/02/2022 10:02 AM EDT Images from the original note were not included. Urinary Problem-When to Seek Help? Symptoms of a urinary problem may lead to a bladder infection. Women are at greater risk of a urinary tract infection than are men. Most urinary tract infections in women are caused by bacteria and involve the lower urinary tract including the bladder and urethra. Symptoms: Pain or burning when passing urine, urgency, frequency, blood in the urine, difficult emptying your bladder, and lower abdominal fullness or pressure. Common Causes: Sexual intercourse, menopause, constipation, uncontrolled diabetes, dehydration and feminine products such as tampons, and kidney stones. When to Get Help: Seek medical attention if you get frequent bladder infections, urinary concerns such as leakage, blood in the urine or frequent need to urinate. You may be recommended to get help from a specialist, such as a urologist. Diagnosis & Treatment: Lab testing may include: urinalysis, and urine culture that can be collected in the lab or walk-in clinic. Most bladder infections can easily be treated. A physician, nurse practitioner or physician insurance assistant may treat with a short course of an antibiotic. Delaying treatment can lead to worsening symptoms, like a kidney infection. Self-Care: Avoid a full bladder, bubble baths, bath oils, food and beverages that may irritate the bladder such as caffeine. Avoid spermicide foam and diaphragms Void before and after sexual intercourse Wipe front to back after using the bathroom. Stay hydrated Stop Smoking Follow-up Care: Follow up testing is not needed in healthy young women if symptoms resolve. documented in this [facility]07-[facility]22 History of Present illness Narrative* Emili Cano APRN.CNP - 05/02/2022 10:01 AM EDT This note was created using [employer]ict[employer]. Subjective Robbin Morse is a 66 year old female. 66 year old female with PMH of HTN, A-Fib, and DM presents with urinary compaints Sudden onset four days States she has had burning, frequency, and dribbling Denies Fever/chills, N,V,D or abd pain Denies flank pain. Denies skin rash or lesions. 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 Probably because I don't drink enough water . The history is provided by the patient. No dramatic director was used. UTI This is a new problem. The current episode started more than 2 days ago. The problem occurs every urination. The problem has been gradually worsening. The quality of the pain is described as burning.The pain is at a severity of 4/10. The pain is mild. There has been no fever. She is not sexually active. There is no history of pyelonephritis. Associated symptoms include frequency, hematuria, hesitancy and urgency. Pertinent negatives include no chills, no sweats, no nausea, no vomiting, no discharge, no possible and no flank pain. She has tried nothing for the symptoms. Her past medical history is significant for recurrent UTIs. Her past medical history does not include kidney stones, single kidney, urological procedure, urinary stasis or catheterization. PAST MEDICAL HISTORY Diagnosis Date Advance directive discussed with patient 03/08/2022 Discussed 02/2022 Anxiety 06/30/2009 Cirrhosis, nonalcoholic (HCC) 07/24/[address] Martinez Diabetic eye exam ([facility]) 12/20/2021 Last done 12/19/21 Mild non proliterative retinopathy ou [facility] Essential hypertension, benign 11/04/2012 Hyperlipidemia, mixed 11/04/2012 Iron deficiency anemia due to chronic blood loss 09/19/2018 Leukopenia 12/23/[address] 03/08/2022 DPA: Dandre () Medicare annual wellness visit, initial 03/08/2022 Medicare Part B: 08/28/2020 Last done: 03/08/2022 Moderate mitral regurgitation 01/22/2017 Multiple gastric ulcers 07/24/202106/2021 SANCHEZ (nonalcoholic steatohepatitis) 07/24/[address] Martinez Paroxysmal atrial fibrillation ([facility]) 05/16/2017 Pulmonary hypertension, secondary 01/22/2017 S/P ablation of atrial fibrillation 01/19/2019 Dr. Mercado Secondary esophageal varices with bleeding ([facility]) 07/24/2021 Seeing Gastro: had banding 06/2021 Stage 3b chronic kidney disease ([facility]) 08/21/2021 Thrombocytopenia ([facility]) 12/23/2018 Type 2 diabetes mellitus with stage 3 chronic kidney disease, without long-term current use of insulin (HCC) 01/17/2017 Type II or unspecified type diabetes mellitus without mention of complication, not stated as uncontrolled 06/30/2009 Vitamin B12 deficiency 12/24/2018 PAST SURGICAL HISTORY Procedure Laterality Date COLONOSCOPY FLX DX W/COLLJ SPEC WHEN PFRMD 10/08/2018 repeat in 5 years due to family history ESOPHAGUS ENDOSCOPY W VARICES BANDING 07/24/2021 Dr. Martinez PAST SURGICAL HISTORY OF c section x 2 REMOVAL GALLBLADDER ALLERGIES Actos [Pioglitazone Hcl], Cardizem [Diltiazem Hcl], Ferrous Sulfate, Januvia [Sitagliptin], Lipitor [Atorvastatin Calcium], Lisinopril, Pravastatin, and Zocor [Simvastatin] MEDICATIONS crojnpn-nzcyrpenw-sxmofrh D3 500 mg-5 mcg (200 unit) per tablet Take by mouth. glimepiride (AMARYL) 4 mg tablet Take 1 tablet by mouth daily with breakfast. metFORMIN (GLUCOPHAGE) 500 mg tablet Take 2 tablets by mouth twice daily. magnesium oxide (MAG-OX) 400 mg (241.3 mg magnesium) tablet Take 1 tablet by mouth twice daily. hydroCHLOROthiazide 12.5 mg capsule Take 1 capsule by mouth once daily. potassium chloride ER (K-DUR, KLOR-CON) 20 mEq tablet Take 1 tablet by mouth once daily. metoprolol tartrate, short acting, (LOPRESSOR) 25 mg tablet Take 1 tablet by mouth twice daily. ursodiol (PAOLA) 250 mg tablet Take 250 mg by mouth twice daily. pantoprazole DR (PROTONIX) 40 mg tablet Take 40 mg by mouth twice daily. cephALEXin (KEFLEX) 500 mg capsule Take 1 capsule by mouth twice daily for 7 days. phenazopyridine (PYRIDIUM) 200 mg tablet Take 1 tablet by mouth three times daily as needed. FAMILY HISTORY Problem Relation Age of Onset Colon Cancer Mother Diabetes Father other (congestive heart failure) Father other (GERD) Sister Social History Tobacco Use Smoking status: Never Smoker Smokeless tobacco: Never Used Substance Use Topics Alcohol use: Yes Comment: occasional Drug use: No Review of Systems Constitutional: Negative for chills, fatigue, fever and unexpected weight change. HENT: Negative for congestion, ear discharge and ear pain. Eyes: Negative for pain, discharge and itching. Respiratory: Negative for cough, chest tightness and shortness of breath. Cardiovascular: Negative for chest pain and leg swelling. Gastrointestinal: Negative for abdominal pain, diarrhea, nausea and vomiting. Endocrine: Negative for cold intolerance and heat intolerance. Genitourinary: Positive for difficulty urinating, frequency, hematuria, hesitancy and urgency. Negative for dysuria, flank pain, pelvic pain, vaginal bleeding, vaginal discharge and vaginal pain. C/O Urinary frequency, burning, urgency Musculoskeletal: Negative for back pain and gait problem. Skin: Negative for color change, pallor, rash and wound. Allergic/Immunologic: Negative for environmental allergies and food allergies. Neurological: Negative for dizziness, light-headedness and headaches. Hematological: Negative for adenopathy. Does not bruise/bleed easily. Psychiatric/Behavioral: Negative for agitation and behavioral problems. Objective BP 136/72 Pulse 78 Temp 36.4 C (97.6 F) (Tympanic) Resp 18 Wt 61 kg (134 lb 6.4 oz) LMP 10/14/2005 SpO2 100% BMI 25.19 kg/m Physical Exam Vitals and nursing note reviewed. Constitutional: General: She is not in acute distress. Appearance: Normal appearance. She is not ill-appearing or toxic-appearing. HENT: Head: Normocephalic. Right Ear: Tympanic membrane, ear canal and external ear normal. There is no impacted cerumen. Left Ear: Tympanic membrane, ear canal and external ear normal. There is no impacted cerumen. Nose: Nose normal. No congestion or rhinorrhea. Mouth/Throat: Mouth: Mucous membranes are moist. Pharynx: Oropharynx is clear. No oropharyngeal exudate or posterior oropharyngeal erythema. Eyes: General: No scleral icterus. Right eye: No discharge. Left eye: No discharge. Extraocular Movements: Extraocular movements intact. Conjunctiva/sclera: Conjunctivae normal. Pupils: Pupils are equal, round, and reactive to light. Cardiovascular: Rate and Rhythm: Normal rate and regular rhythm. Pulses: Normal pulses. Heart sounds: Normal heart sounds. No murmur heard. No gallop. Pulmonary: Effort: Pulmonary effort is normal. Breath sounds: Normal breath sounds. No stridor. No wheezing, rhonchi or rales. Abdominal: General: Abdomen is flat. Bowel sounds are normal. There is no distension. Palpations: Abdomen is soft. There is no mass. Tenderness: There is no abdominal tenderness. There is no right CVA tenderness, left CVA tenderness, guarding or rebound. Hernia: No hernia is present. Comments: No pelvic or CVA tenderness. Musculoskeletal: General: No swelling or tenderness. Normal range of motion. Cervical back: Normal range of motion. No rigidity or tenderness. Skin: General: Skin is warm and dry. Capillary Refill: Capillary refill takes less than 2 seconds. Coloration: Skin is not pale. Findings: No erythema, lesion or rash. Neurological: General: No focal deficit present. Mental Status: She is alert and oriented to person, place, and time. Motor: No weakness. Psychiatric: Mood and Affect: Mood normal. Behavior: Behavior normal. Thought Content: Thought content normal. Judgment: Judgment normal. Assessment and Plan ASSESSMENT/PLAN: 1. Urinary frequency - ICD9: 788.41, ICD10: R35.0 acute - UA positive for shine esterase and hematuria - Patient education for prevention given - UA DIP, URINE (POC) - URINE CULTURE TX-Keflex 500 mg/Pyridium 200 mg - Follow-up with your PCP in 3-5 days if symptoms have not improved or sooner if symptoms worsen - Discussed red flags and need for immediate medical evaluation if any occur. - Discussed supportive care treatment with fluids, rest and analgesia. - Discussed expected course of illness 2. Dysuria - ICD9: 788.1, ICD10: R30.0 acute - UA positive for shine esterase and hematuria - Send urine for culture - Begin treatment with Keflex - Patient education for prevention given Denise Moyer[facility] TEACHING PROVIDER (Physician/PA/CONSUMER INSIGHTS INTERN) NOTE OF PERSONAL INVOLVEMENT IN CARE: I have personally seen and examined the patient and performed the medical decision-making components. I have reviewed the Advanced Practice Registered Nurse (CONSUMER INSIGHTS INTERN) Student's documentation and verified the findings in the note as written. Any additions or changes are noted in bold/italics. Signature: Emili Cano Date: 05/02/2022 Time: 1:05 PM documented in this encounterLicking [facility]05-26-[facility]22 Miscellaneous Notes* Telephone Encounter - Elvis Culp MD - 03/22/2022 3:50 PM EDT The following approved medication requests have been transmitted electronically. Signed Prescriptions Disp Refills glimepiride (AMARYL) 4 mg tablet 90 tablet 1 Sig: Take 1 tablet by mouth daily with breakfast. JADE: No Authorizing Provider: ELVIS CULP MD * Telephone Encounter - Ginna Hernandez MA - 03/22/2022 8:49 AM EDT Patient notified and voiced understanding. She would like the prescription sent to mail away pharmacy. Ginna Hernandez MA * Telephone Encounter - Elvis Culp MD - 03/21/2022 9:03 PM EDT Let patient know her A1c is improved at 7.3% from 8.2%. Goal is <7%. Advise patient I'm going to increase her Amaryl to 4 mg in the morning. New script sent but can useup the 2 mg tabs by taking two at a time. Her iron studies still show her iron is low. I have she is not on any iron and would suggest she ask Dr. Martinez if he is ok with her taking OTC Slo [place] one a day? documented in this encounterLicking [facility]05-24-2022 Miscellaneous Notes* Telephone Encounter - Moses Serra LPN - 03/20/2022 1:36 PM EDT Patient notified of results and provider's instructions. Patient verbalizes understanding. Moses Serra LPN * Telephone Encounter - Elvis Culp MD - 03/20/2022 1:20 PM EDT Let patient know her bone study was normal. Would advise 600 mg of calcium twice a day, 2,000 international unit(s) 's of Vit D a day and walking several days a week to help keep her bones strong. documented in this encounterLicking [facility]05-12-2022 Instructions* Patient Instructions* Elvis Culp MD - 03/08/2022 12:13 PM EDT E bring in copies of [employer] box and tritrueh care for you and Dandre. documented in this encounterLicking [facility]05-12-2022 History of Present illness Narrative* Elvis Culp MD - 03/08/2022 10:22 AM EDT Images from the original note were not included. Medicare Yearly Visit Medical B eligibilty date 08/28/2020 Date of last exam [facility] PAST MEDICAL HISTORY Diagnosis Date Advance directive discussed with patient 03/08/2022 Discussed 02/2022 Anxiety 06/30/2009 Cirrhosis, nonalcoholic (HCC) 07/24/[address] Martinez Diabetic eye exam ([facility]) 12/20/2021 Last done 12/19/21 Mild non proliterative retinopathy ou [facility] Essential hypertension, benign 11/04/2012 Hyperlipidemia, mixed 11/04/2012 Iron deficiency anemia due to chronic blood loss 09/19/2018 Leukopenia 12/23/[address] 03/08/2022 DPA: Dandre () Medicare annual wellness visit, initial 03/08/2022 Medicare Part B: 08/28/2020 Last done: 03/08/2022 Moderate mitral regurgitation 01/22/2017 Multiple gastric ulcers 07/24/202106/2021 SANCHEZ (nonalcoholic steatohepatitis) 07/24/[address] Martinez Paroxysmal atrial fibrillation ([facility]) 05/16/2017 Pulmonary hypertension, secondary 01/22/2017 S/P ablation of atrial fibrillation 01/19/2019 Dr. Mercado Secondary esophageal varices with bleeding ([facility]) 07/24/2021 Seeing Gastro: had banding 06/2021 Stage 3b chronic kidney disease (HCC) 08/21/2021 Thrombocytopenia (HCC) 12/23/2018 Type 2 diabetes mellitus with stage 3 chronic kidney disease, without long-term current use of insulin (HCC) 01/17/2017 Type II or unspecified type diabetes mellitus without mention of complication, not stated as uncontrolled 06/30/2009 Vitamin B12 deficiency 12/24/2018 PAST SURGICAL HISTORY Procedure Laterality Date COLONOSCOPY FLX DX W/COLLJ SPEC WHEN PFRMD 10/08/2018 repeat in 5 years due to family history ESOPHAGUS ENDOSCOPY W VARICES BANDING 07/24/2021 Dr. Martinez PAST SURGICAL HISTORY OF c section x 2 REMOVAL GALLBLADDER ALLERGIES: Actos [Pioglitazone Hcl], Cardizem [Diltiazem Hcl], Januvia [Sitagliptin], Lipitor [Atorvastatin Calcium], Lisinopril, Pravastatin, and Zocor [Simvastatin] Medications reviewed: Yes FAMILY HISTORY Problem Relation Age of Onset Colon Cancer Mother Diabetes Father other (congestive heart failure) Father other (GERD) Sister SOCIAL HISTORY: Social History Tobacco Use Smoking status: Never Smoker Smokeless tobacco: Never Used Substance Use Topics Alcohol use: Yes Comment: occasional Drug use: No Robbin works out regularly 3-4 times per week with walking. She watches her diet for sodium, low fat and low cholesterol most of the time. List of current specialists seen: Dr. Martinez (Gastro) Dr. Groves (Cardio) Dr. Aburto (Optho) End of Live Planning discussed including patients advanced directive wishes: Yes I am willing to follow Robbin's advanced directives. PHQ-2 / Depression screen Depression Screening 10/07/2017 2018 07/29/2021 03/08/2022 PHQ-2 Score - 0 1 0 HORACIO-2 Total Score 0 - - - Depression screening tool completed and reviewed. Based on score and interview, patient is not at risk for depression. Screening tool discussed with patient, and I recommended no further interventionat this time. Functional Ability/Safety Screen 1. Was the patient's timed Up and Go test unsteady or longer than 30 seconds? No 2. Does the patient need help with the phone, transportation, shopping,preparing meals, housework, laundry, medications or managing money? No 3. Does your home have rugs in the hallway, lack of grab bars in the bathroom(Y), lack of handrailson the stairs or have poor lighting? No Hearing Evaluation: normal PHYSICAL EXAM BP 112/68 (BP Site: Right Arm, BP Position: Sitting, BP Cuff Size: Regular Adult) Pulse 72 Resp16 Ht 155.6 cm (5' 1.25 ) Wt 60.3 kg (133 lb) LMP 10/14/2005 BMI 24.93 kg/m Alert and oriented X 3: YES Body mass index is 24.93 kg/m . Visual acuity: seeing optho See below ASSESSMENT/PLAN: 66 year old female The following prevention plan was discussed during the office visit and provided to the patient: See below Elvis Culp MD Chief Complaint Patient presents with: Medicare Wellness Exam: Kyree is here for medicare wellness exam HPI Robbin Morse is a 66 year old female who presents here today for extensive Visit. Patient with Hx of DM 2, HTN, Hyperlipidemia, A Fib, Iron def anemia, Mitral regurge, Pulm HTN, Thrombocytopenia, Leukopenia, Vit B 12 def, renal insufficiency. patient with Hx of DM 2, Hyperlipidemia, HTN, A. Fib, Valvular heart disease, CKD, Iron Def, thrombocytopenia, Leukopenia, B12 def, Pulm HTN, esophageal varices, SANCHEZ, cirrhosis as well as those reviewed and addressed below and in ROS. Patient has been doing ok. Continues to f/u with her specialist. FBS's run 90-125 (most of the time 110-115) Concerns: none Past medical history, appointments, medications, allergies reviewed. Previous Medical History PAST MEDICAL HISTORY Diagnosis Date Anxiety 06/30/2009 Cirrhosis, nonalcoholic (HCC) 07/24/[address] Martinez Essential hypertension, benign 11/04/2012 Hyperlipidemia, mixed 11/04/2012 Iron deficiency anemia due to chronic blood loss 09/19/2018 Leukopenia 12/23/2018 Moderate mitral regurgitation 01/22/2017 Multiple gastric ulcers 07/24/202106/2021 SANCHEZ (nonalcoholic steatohepatitis) 07/24/[address] Martinez Paroxysmal atrial fibrillation (HCC) 05/16/2017 Pulmonary hypertension, secondary 01/22/2017 S/P ablation of atrial fibrillation 01/19/2019 Dr. Mercado Secondary esophageal varices with bleeding (HCC) 07/24/2021 Seeing Gastro: had banding 06/2021 Stage 3b chronic kidney disease (HCC) 08/21/2021 Thrombocytopenia (HCC) 12/23/2018 Type 2 diabetes mellitus with stage 3 chronic kidney disease, without long-term current use of insulin (HCC) 01/17/2017 Type II or unspecified type diabetes mellitus without mention of complication, not stated as uncontrolled 06/30/2009 Vitamin B12 deficiency 12/24/2018 Previous Surgical History PAST SURGICAL HISTORY Procedure Laterality Date COLONOSCOP W/ OR W/O BRSH SPEC 10/08/2018 repeat in 5 years due to family history ESOPHAGUS ENDOSCOPY W VARICES BANDING 07/24/2021 Dr. Martinez PAST SURGICAL HISTORY OF c section x 2 REMOVAL GALLBLADDER Family History FAMILY HISTORY Problem Relation Age of Onset Colon Cancer Mother Diabetes Father other (congestive heart failure) Father other (GERD) Sister Patient Allergies ALLERGIES Allergen Reactions Actos [Pioglitazone* Swelling dyspnea Cardizem [Diltiazem* Other: See Comments states it makes her blood sugar tali high Januvia [Sitaglipti* Shortness of Breath chest pain and shortness of breath Lipitor [Atorvastat* Other: See Comments myalgia Lisinopril Other: See Comments elevated creatinine Pravastatin Other: See Comments Leg cramps Zocor [Simvastatin] Intolerance Current Medications Current Outpatient Medications on File Prior to Visit Medication Sig magnesium oxide (MAG-OX) 400 mg (241.3 mg magnesium) tablet Take 1 tablet by mouth twice daily. hydroCHLOROthiazide 12.5 mg capsule Take 1 capsule by mouth once daily. potassium chloride ER (K-DUR, KLOR-CON) 20 mEq tablet Take 1 tablet by mouth once daily. metoprolol tartrate, short acting, (LOPRESSOR) 25 mg tablet Take 1 tablet by mouth twice daily. ursodiol (PAOLA) 250 mg tablet Take 250 mg by mouth twice daily. metFORMIN (GLUCOPHAGE) 500 mg tablet Take 2 tablets by mouth twice daily. pantoprazole DR (PROTONIX) 40 mg tablet Take 40 mg by mouth twice daily. glimepiride (AMARYL) 2 mg tablet Take 1 tablet by mouth daily with breakfast. ferrous sulfate 325 mg (65 mg iron) tablet Take 1 tablet by mouth three times daily with meals. rivaroxaban (XARELTO) 15 mg tablet Take 1 tablet by mouth once daily. No current facility-administered medications on file prior to visit. Social History Social History Tobacco Use Smoking status: Never Smoker Smokeless tobacco: Never Used Substance Use Topics Alcohol use: Yes Comment: occasional Drug use: No Review of Symptoms REVIEW OF SYSTEMS GENERAL: No malaise or fevers. Has weight loss after the diagnosis of cirrhosis. Has been 131-132 lbs for the past 5 months. HEENT: Negative for frequent or significant headaches, No changes in hearing or vision, no nose bleeds or other nasal problems NECK: Negative for lumps, goiter, pain and significant neck swelling RESPIRATORY: Negative for cough, hemoptysis, wheezing, COPD, dyspnea or shortness of breath CARDIOVASCULAR: Negative for chest pain, leg swelling, hypertension, CHF or palpitations GI: No nausea, vomiting, or changes in diarrhea and No heartburn or reflux symptoms : No history of dysuria, blood MUSCULOSKELETAL: Negative for joint pain or swelling, back pain or muscle pain SKIN: Negative for lesions, rash, and itching PSYCH: Negative for sleep disturbance, mood disorder and recent psychosocial stressors HEMATOLOGY/LYMPHOLOGY: Negative for prolonged bleeding, bruising easily or swollen nodes ENDOCRINE: Negative for cold or heat intolerance, no symptoms of low BS's NEURO: No history of headaches, syncope, paralysis, seizures or tremors EXAM: BP 112/68 (BP Site: Right Arm, BP Position: Sitting, BP Cuff Size: Regular Adult) Pulse 72 Resp16 Ht 155.6 cm (5' 1.25 ) Wt 60.3 kg (133 lb) LMP 10/14/2005 BMI 24.93 kg/m Last 5 Encounter Wt Readings: Date: Wt: 03/08/2022 60.3 kg (133 lb) 07/31/2021 64.4 kg (142 lb) 01/19/2021 67.7 kg (149 lb 3.2 oz) 09/13/2020 66.2 kg (146 lb) 11/05/2019 69.9 kg (154 lb 0.9 oz) General Appearance: Well appearing, alert, in no acute distress, well-hydrated, well nourished.. Skin: Skin color, texture, turgor normal, no suspicious rashes or lesions. Head: Normocephalic, no masses, lesions, tenderness or abnormalities. Eyes: Anicteric sclera. Pupils are equally round and reactive to light. Extraocular movements are intact. . Ears: External ears, TM's normal, canals clear. Neck: Supple, no adenopathy; thyroid symmetric, normal size, no bruits. Lungs: Lungs clear to auscultation. No wheezing, rhonchi, rales.. Heart: RRR without murmur, gallop, or rubs. No ectopy. Abdomen: Normal abdominal exam, Abdomen soft, non-tender. Bowel sounds normal. No masses, organomegaly. Extremities: No deformities, edema, skin discoloration, clubbing or cyanosis. Musculoskeletal: Muscular strength intact, No joint swelling, deformity, or tenderness. Peripheral Pulses: Normal. Neurologic: Gait normal. Reflexes normal and symmetric. Sensation to light touch and crainal nerves2-12 intact.. Diabetic Foot Exam: Feet: Shoes and socks removed, no deformities, ulcers, calluses, normal distal pulses, sensitive to10 gm microfilament and vibratory exam within normal limits Skin: warm, dry and no callouses or ulcer Vascular Pulses: Normal SEMMES-LEONOR MONOFILAMENT TESTING Left Foot Right Foot Dorsal Surface Intact Dorsal Surface Intact Plantar Surface Intact Plantar Surface Intact Health Maintenance List SHINGRIX VACCINE(2 of 3) due on 02/23/2016 DTAP,TDAP,TD(2 - Td or Tdap) due on 11/04/2018 BONE DENSITY Never done PNEUMOVAX AGE 65 AND OVER WITH 5YR LOOKBACK(1) due on 2020 DIABETIC FOOT EXAM due on 09/13/2021 ADVANCE DIRECTIVE DISCUSSION Never done COVID-19 VACCINE(4 - Booster for Moderna series) due on 01/10/2022 HBA1C due on 04/26/2022 DEPRESSION SCREENING due on 07/29/2022 BP CONTROLLED (<130/80) due on 07/31/2022 ANNUAL PCP TEAM CHRONIC DISEASE VISIT due on 08/10/2022 MAMMOGRAM due on 08/15/2022 DILATED RETINAL EXAM due on 12/19/2022 URINE ALBUMIN:CREATININE RATIO due on 01/24/2023 LDL CHOLESTEROL due on 01/24/2023 SERUM CREATININE due on 01/24/2023 HEMOGLOBIN/HEMATOCRIT due on 01/24/2023 COLORECTAL CANCER SCREENING due on 10/08/2023 HEPATITIS B Completed HEPATITIS A Completed INFLUENZA Completed HEPATITIS C SCREENING Completed MENINGOCOCCAL CONJUGATE Aged Out Data reviewed Component Latest Ref Rng & Units 08/15/2021 01/24/2022 WBC 3.70 - 11.00 k/uL 5.13 2.97 (L) RBC 3.90 - 5.20 m/uL 3.17 (L) 2.77 (L) Hemoglobin 11.5 - 15.5 g/dL 9.7 (L) 8.6 (L) Hematocrit 36.0 - 46.0 % 28.2 (L) 25.3 (L) MCV 80.0 - 100.0 fL 89.0 91.3 MCH 26.0 - 34.0 pg 30.6 31.0 MCHC 30.5 - 36.0 g/dL 34.4 34.0 RDW-CV 11.5 - 15.0 % 13.4 13.9 Platelet Count 150 - 400 k/uL 106 (L) 66 (L) MPV 9.0 - 12.7 fL 10.3 11.1 Neut% % 69.1 66.3 Abs Neut (ANC) 1.45 - 7.50 k/uL 3.54 1.97 Lymph% % 17.5 21.2 Abs Lymph 1.00 - 4.00 k/uL 0.90 (L) 0.63 (L) [place]% % 9.9 8.4 Abs [place] <0.87 k/uL 0.51 0.25 Eosin% % 2.9 2.7 Abs Eosin <0.46 k/uL 0.15 0.08 Baso% % 0.6 0.7 Abs Baso <0.11 k/uL 0.03 <0.03 Immature Gran % % 0.7 IMMATURE GRANS (ABS) <0.10 k/uL <0.03 NRBC /100 WBC 0.0 Absolute nRBC <0.01 k/uL <0.01 <0.01 DTYPE Auto Nucleated Reds 0 /100 WBC 0.0 Diff Type Auto Diff Protein, Total 6.3 - 8.0 g/dL 7.1 6.6 Albumin 3.9 - 4.9 g/dL 3.8 (L) 3.7 (L) Calcium 8.5 - 10.2 mg/dL 9.8 9.7 Bilirubin, Total 0.2 - 1.3 mg/dL 0.6 0.3 Alkaline Phosphatase 34 - 123 U/L 116 126 (H) AST 13 - 35 U/L 32 26 Glucose 74 - 99 mg/dL 204 (H) 125 (H) BUN 7 - 21 mg/dL 21 17 Creatinine 0.58 - 0.96 mg/dL 1.24 (H) 1.39 (H) Sodium 136 - 144 mmol/L 127 (L) 134 (L) Potassium 3.7 - 5.1 mmol/L 3.5 (L) 4.2 Chloride 97 - 105 mmol/L 92 (L) 102 CO2 22 - 30 mmol/L 22 25 Anion Gap 9 - 18 mmol/L 13 7 (L) ALT 7 - 38 U/L 22 18 eGFR- 53 eGFR-All Other Races . 43 eGFR >=60 mL/min/1.73m 42 (L) Color Yellow Straw Clarity Clear Clear Glucose, Urine Negative Negative Bilirubin, Urine Negative Negative Ketones, Urine Negative Negative Specific [place], Ur 1.005 - 1.030 1.006 Hemoglobin/Blood,Ur Negative Negative pH, Urine 5.0 - 8.0 7.0 Protein, Urine Negative Negative Urobilinogen Negative Negative Nitrites Negative Negative Leukest Negative Negative WBC, Urine 0-5 /HPF 0-5 /HPF RBC, Urine 0-3 /HPF 0-3 /HPF Total Cholesterol, Nonfasting <200 mg/dL 158 190 Triglycerides, Nonfasting <150 mg/dL 101 172 (H) HDL Cholesterol, Nonfasting >39 mg/dL 78 68 LDL Cholesterol, Nonfasting <100 mg/dL 60 88 Non HDL Cholesterol, Nonfasting <130 mg/dL 80 122 VLDL Cholesterol, Nonfasting <30 mg/dL 20 34 (H) Total Chol/HDL Ratio, Nonfasting <5.10 mg/dL 2.03 2.79 LDL/HDL Ratio, Nonfasting <2.54 mg/dL 0.77 1.29 Creatinine, Ur Random (UCRR) 20.0 - 300.0 mg/dL 73.0 46.6 Albumin, Urine Random mg/L 14.1 <12.0 Albumin/Creat Ratio <30 mg/g 19 <26 Iron 41 - 186 ug/dL 88 36 (L) TIBC 232 - 386 ug/dL 356 368 Transferrin Saturation 15 - 57 % 25 10 (L) Hemoglobin A1C 4.3 - 5.6 % 6.9 (H) 8.2 (H) Estimated Average Glucose mg/dL 151 189 Vitamin B12 232-1,245 pg/mL 617 334 Component Latest Ref Rng & Units 03/08/2022 WBC 3.4 - 10.8 K/uL 3.8 RBC 4.14 - 5.80 M/uL 2.95 (A) Hemoglobin 12.6 - 17.7 g/dL 8.8 (A) Hematocrit 37.5 - 51.0 % 26.9 (A) MCV 79 - 97 fL 91.2 MCH 26.6 - 33 Pg 29.8 MCHC 31.5 - 35.7 g/dL 32.7 RDW 12.3 - 15.4 % 13.5 Platelet Count 150 - 379 k/uL 76 (A) Neutrophil % % 68.9 Lymphocyte % % 19.4 Monocyte % % 8 Eosinophil % % 2.9 Basophil % % 0.3 NEUTROPHILS ABSOLUTE 1.4 - 7.0 k/uL 2.6 LYMPHS ABSOLUTE 0.7 - 3.1 k/uL 0.73 NA 136 - 145 mmol/L 136 K 3.5 - 5.1 mmol/L 3.8 Chloride 98 - 107 MEQ/L 103 CO2 21 - 32 MEQ/L 25 Glucose 74 - 106 MG/DL 122 (A) BUN 7 - 18 MG/DL 20 (A) Creatinine 0.6 - 1.3 MG/DL 1.52 (A) GFR mL/MIN 36 Total Protein 6.4 - 8.2 gm/dL 7.6 Albumin 3.2 - 4.6 gm/dL 3.4 Calcium 8.5 - 10.1 mg/dL 9.6 Bili Total 0.2 - 1 mg/dL 0.6 AST 8 - 37 U/L 29 ALT (SGPT) 12 - 78 U/L 31 Alk Phos Total 45 - 117 U/L 98 A/P ASSESSMENT/PLAN: 1. Medicare annual wellness visit, initial - ICD9: V70.0, ICD10: Z00.00 (primary diagnosis) - Counseled on healthy diet and regular exercise - Calcium intake with supplements or by diet of 1000 mg/day for under 50, 1200- 1500 mg/day for 50+ - Follow up for annual exam in one year 2. Type 2 diabetes mellitus with stage 3b chronic kidney disease, without long- term current use of insulin (HCC) - ICD9: 250.40, 585.3, ICD10: E11.22, N18.32 - Will await to see what Labs are done by Dr. Martinez in the next week and then decide if A1c needed. - In December her A1c was falsely elevate due to her low Hg. - Continue current medications - Encouraged regular aerobic exercise and weight loss - BP goal of <130/80 - LDL goal of <100 3. Diabetic eye exam (HCC) - ICD9: V72.0, 250.00, ICD10: Z01.00, E11.9 - Up to date 4. Essential hypertension, benign - ICD9: 401.1, ICD10: I10 - good control - Continue current medication(s) - Recommended regular aerobic exercise. - Recommend home blood pressure monitoring, to bring results in on next visit - Goal of BP <130/80 5. Hyperlipidemia, mixed - ICD9: 272.2, ICD10: E78.2 - good control - Encouraged following a low fat, low cholesterol diet. - Discussed the benefits of regular aerobic exercise and weight loss. - Encouraged following a low carbohydrate, healthy oil intake diet. - Continue current therapy. 6. Paroxysmal atrial fibrillation (HCC) - ICD9: 427.31, ICD10: I48.0 - Stable cont f/u with cardio 7. Stage 3b chronic kidney disease (HCC) - ICD9: 585.3, ICD10: N18.32 - Cont to monitor 8. Iron deficiency anemia due to chronic blood loss - ICD9: 280.0, ICD10: D50.0 - Seeing Gastro - Will await gastro labs and if CBC and iron not checked will get this. 9. Thrombocytopenia (HCC) - ICD9: 287.5, ICD10: D69.6 - Chronic and stable 10. Leukopenia, unspecified type - ICD9: 288.50, ICD10: D72.819 - Chronic, no changes. 11. Vitamin B12 deficiency - ICD9: 266.2, ICD10: E53.8 - Stable 12. Secondary esophageal varices with bleeding (HCC) - ICD9: 456.20, ICD10: I85.11 - Seeing gastro 13. Cirrhosis, nonalcoholic (HCC) - ICD9: 571.5, ICD10: K74.60 - As per #12 14. SANCHEZ (nonalcoholic steatohepatitis) - ICD9: 571.8, ICD10: K75.81 - As per #12 15. Pulmonary hypertension (HCC) - ICD9: 416.8, ICD10: I27.20 - Seeing cardio 16. Advance directive discussed with patient - ICD9: V65.49, ICD10: Z71.89 - Asked to bring in copies 17. Living will in place - ICD9: V49.89, ICD10: Z78.9 - As per # 16 18. Screening for osteoporosis - ICD9: V82.81, ICD10: Z13.820 Check - DXA-AXIAL SKELETON 19. Primary ovarian failure - ICD9: 256.39, ICD10: E28.39 Check - DXA-AXIAL SKELETON F/u in 6 months routine I spent a total of 40 minutes on the date of the service which included preparing to see the patient, [id number] patient care, completing clinical documentation, performing a medically appropriate examination, counseling and educating the patient/family/caregiver and ordering medications, tests, or procedures. Elvis Culp MD [facility] History of Present illness Narrative* Carla Soto LPN - 02/08/2022 10:15 AM EDT Patient presents for Hepatitis A and Hepatitis B vaccines. Denies any problems at this time. Tolerated injections well. Carla Soto LPN [facility] Miscellaneous Notes* Telephone Encounter - Carla Soto LPN - 01/24/2022 12:35 PM EDT Patient scheduled for nurse visit 02/08/22 to receive Hepatitis A and Hepatitis B vaccines. Please place order at this time. Carla Soto LPN documented [facility] Miscellaneous Notes* Telephone Encounter - Moses Serra LPN - 01/15/2022 8:35 AM EDT Please see pt's message. Moses Serra LPN documented [facility] encounter[facility] History of Past illness Narrative* Problem Noted Date Resolved Date Atrial fibrillation 01/17/2017 05/16/2017 Other and unspecified hyperlipidemia 08/25/2009 11/06/2013 Anxiety 06/30/2009 12/29/2015 Cervicalgia 06/30/2009 12/29/2015 documented as of this encounter (statuses as of 01/15/2022) [facility] of Past illness Narrative* Problem Noted Date Resolved Date Atrial fibrillation 01/17/2017 05/16/2017 Other and unspecified hyperlipidemia 08/25/2009 11/06/2013 Anxiety 06/30/2009 12/29/2015 Cervicalgia 06/30/2009 12/29/2015 documented as of this encounter (statuses as of 01/24/2022) [facility] of [facility] illness Narrative* Problem Noted Date Resolved Date Atrial fibrillation 01/17/2017 05/16/2017 Other and unspecified hyperlipidemia 08/25/2009 11/06/2013 Anxiety 06/30/2009 12/29/2015 Cervicalgia 06/30/2009 12/29/2015 documented as of this encounter (statuses as of 02/08/2022) [facility] of [facility] illness Narrative* Problem Noted Date Resolved Date Atrial fibrillation 01/17/2017 05/16/2017 Other and unspecified hyperlipidemia 08/25/2009 11/06/2013 Anxiety 06/30/2009 12/29/2015 Cervicalgia 06/30/2009 12/29/2015 documented as of this encounter (statuses as of 03/20/2022) [facility] of [facility] illness Narrative* Problem Noted Date Resolved Date Atrial fibrillation 01/17/2017 05/16/2017 Other and unspecified hyperlipidemia 08/25/2009 11/06/2013 Anxiety 06/30/2009 12/29/2015 Cervicalgia 06/30/2009 12/29/2015 documented as of this encounter (statuses as of 03/20/2022) [facility] Narrative* Problem Noted Date Resolved Date Atrial fibrillation 01/17/2017 05/16/2017 Other and unspecified hyperlipidemia 08/25/2009 11/06/2013 Anxiety 06/30/2009 12/29/2015 Cervicalgia 06/30/2009 12/29/2015 documented as of this encounter (statuses as of 03/22/2022) [facility] of [facility] Narrative* Problem Noted Date Resolved Date Atrial fibrillation 01/17/2017 05/16/2017 Other and unspecified hyperlipidemia 08/25/2009 11/06/2013 Anxiety 06/30/2009 12/29/2015 Cervicalgia 06/30/2009 12/29/2015 documented as of this encounter (statuses as of 05/02/2022) [facility] Narrative* Problem Noted Date Resolved Date Atrial fibrillation 01/17/2017 05/16/2017 Other and unspecified hyperlipidemia 08/25/2009 11/06/2013 Anxiety 06/30/2009 12/29/2015 Cervicalgia 06/30/2009 12/29/2015 documented as of this encounter (statuses as of 05/03/2022) [address]23-2017 History of Past illness Narrative* Problem Noted Date Resolved Date Atrial fibrillation 01/17/2017 05/16/2017 Other and unspecified hyperlipidemia 08/25/2009 11/06/2013 Anxiety 06/30/2009 12/29/2015 Cervicalgia 06/30/2009 12/29/2015 documented as of this encounter (statuses as of 07/13/2022) [address]23-2017 History of Past illness Narrative* Problem Noted Date Resolved Date Atrial fibrillation 01/17/2017 05/16/2017 Other and unspecified hyperlipidemia 08/25/2009 11/06/2013 Anxiety 06/30/2009 12/29/2015 Cervicalgia 06/30/2009 12/29/2015 documented as of this encounter (statuses as of 08/17/2022) [address]-2017 History of Past illness Narrative* Problem Noted Date Resolved Date Atrial fibrillation 01/17/2017 05/16/2017 Other and unspecified hyperlipidemia 08/25/2009 11/06/2013 Anxiety 06/30/2009 12/29/2015 Cervicalgia 06/30/2009 12/29/2015 documented as of this encounter (statuses as of 09/10/2022) [address]-2017 History of Past illness Narrative* Problem Noted Date Resolved Date Atrial fibrillation 01/17/2017 05/16/2017 Other and unspecified hyperlipidemia 08/25/2009 11/06/2013 Anxiety 06/30/2009 12/29/2015 Cervicalgia 06/30/2009 12/29/2015 documented as of this encounter (statuses as of 09/24/2022) [address]-2017 History of Past illness Narrative* Problem Noted Date Resolved Date Atrial fibrillation 01/17/2017 05/16/2017 Other and unspecified hyperlipidemia 08/25/2009 11/06/2013 Anxiety 06/30/2009 12/29/2015 Cervicalgia 06/30/2009 12/29/2015 documented as of this encounter (statuses as of 09/26/2022) [address]-2017 History of Past illness Narrative* Problem Noted Date Resolved Date Atrial fibrillation 01/17/2017 05/16/2017 Other and unspecified hyperlipidemia 08/25/2009 11/06/2013 Anxiety 06/30/2009 12/29/2015 Cervicalgia 06/30/2009 12/29/2015 documented as of this encounter (statuses as of 09/27/2022) [address]-2017 History of Past illness Narrative* Problem Noted Date Resolved Date Atrial fibrillation 01/17/2017 05/16/2017 Other and unspecified hyperlipidemia 08/25/2009 11/06/2013 Anxiety 06/30/2009 12/29/2015 Cervicalgia 06/30/2009 12/29/2015 documented as of this encounter (statuses as of 11/26/2022) [address]-2017 History of Past illness Narrative* Problem Noted Date Resolved Date Atrial fibrillation 01/17/2017 05/16/2017 Other and unspecified hyperlipidemia 08/25/2009 11/06/2013 Anxiety 06/30/2009 12/29/2015 Cervicalgia 06/30/2009 12/29/2015 documented as of this encounter (statuses as of 12/06/2022) [address]-2017 History of Past illness Narrative* Problem Noted Date Resolved Date Atrial fibrillation 01/17/2017 05/16/2017 Other and unspecified hyperlipidemia 08/25/2009 11/06/2013 Anxiety 06/30/2009 12/29/2015 Cervicalgia 06/30/2009 12/29/2015 documented as of this encounter (statuses as of 01/03/2023) [address]-2017 History of Past illness Narrative* Problem Noted Date Resolved Date Atrial fibrillation 01/17/2017 05/16/2017 Other and unspecified hyperlipidemia 08/25/2009 11/06/2013 Anxiety 06/30/2009 12/29/2015 Cervicalgia 06/30/2009 12/29/2015 documented as of this encounter (statuses as of 03/26/2023) [facility] Diagnosis Type 2 diabetes mellitus with stage 3b chronic kidney disease, without long-term current use of insulin (HCC)- Primary Stage 3b chronic kidney disease (HCC) Paroxysmal atrial fibrillation (HCC) Atrial fibrillation Iron deficiency anemia due to chronic blood loss Iron deficiency anemia secondary to blood loss (chronic) Hyperlipidemia, mixed Mixed hyperlipidemia Essential hypertension, benign Vitamin B12 deficiency Other B-complex deficiencies Thrombocytopenia (HCC) Thrombocytopenia, unspecified Leukopenia, unspecified type SANCHEZ (nonalcoholic steatohepatitis) Other chronic nonalcoholic liver disease [facility]* Diagnosis Need for vaccination- Primary Need for prophylactic vaccination and inoculation against unspecified single disease [facility] Diagnosis Need for vaccination- Primary Need for prophylactic vaccination and inoculation against unspecified single disease [facility]* Diagnosis Medicare annual wellness visit, initial- Primary Routine general medical examination at a health care facility Type 2 diabetes mellitus with stage 3b chronic kidney disease, without long-term current use of insulin (HCC) Diabetic eye exam (HCC) Type II or unspecified type diabetes mellitus without mention of complication, not stated as uncontrolled Essential hypertension, benign Hyperlipidemia, mixed Mixed hyperlipidemia Paroxysmal atrial fibrillation (HCC) Atrial fibrillation Stage 3b chronic kidney disease (HCC) Iron deficiency anemia due to chronic blood loss Iron deficiency anemia secondary to blood loss (chronic) Thrombocytopenia (HCC) Thrombocytopenia, unspecified Leukopenia, unspecified type Vitamin B12 deficiency Other B-complex deficiencies Secondary esophageal varices with bleeding (HCC) Esophageal varices with bleeding in diseases classified elsewhere Cirrhosis, nonalcoholic (HCC) Cirrhosis of liver without mention of alcohol SANCHEZ (nonalcoholic steatohepatitis) Other chronic nonalcoholic liver disease Pulmonary hypertension (HCC) Other chronic pulmonary heart diseases Advance directive discussed with patient Other specified counseling Living will in place Screening for osteoporosis Special screening for osteoporosis Primary ovarian failure Other ovarian failure Diabetes mellitus type 2 (HCC) [facility]* Diagnosis Diabetes mellitus type 2 (HCC) [facility]* Diagnosis Urinary frequency- Primary Dysuria documented in this encounter [facility] note* Diagnosis Encounter for screening mammogram for breast cancer Encounter for immunization- Primary Need for other specified prophylactic vaccination against single bacterial disease documented in this encounter [facility] note* Diagnosis Type 2 diabetes mellitus with stage 3b chronic kidney disease, without long-term current use of insulin (HCC)- Primary Diabetes mellitus type 2 (HCC) Diabetic eye exam (HCC) Type II or unspecified type diabetes mellitus without mention of complication, not stated as uncontrolled Essential hypertension, benign Hyperlipidemia, mixed Mixed hyperlipidemia Paroxysmal atrial fibrillation (HCC) Atrial fibrillation Pulmonary hypertension (HCC) Other chronic pulmonary heart diseases Stage 3b chronic kidney disease (HCC) Iron deficiency anemia due to chronic blood loss Iron deficiency anemia secondary to blood loss (chronic) Vitamin B12 deficiency Other B-complex deficiencies Secondary esophageal varices with bleeding (HCC) Esophageal varices with bleeding in diseases classified elsewhere SANCHEZ (nonalcoholic steatohepatitis) Other chronic nonalcoholic liver disease Cirrhosis, nonalcoholic (HCC) Cirrhosis of liver without mention of alcohol Thrombocytopenia (HCC) Thrombocytopenia, unspecified Kidney stone Calculus of kidney documented in this encounter [facility] note* Diagnosis Type 2 diabetes mellitus with stage 3b chronic kidney disease, without long-term current use of insulin (HCC) documented in this encounter [facility] note* Diagnosis Essential hypertension, benign documented in this encounter [facility] note* Diagnosis Hypercalcemia- Primary documented in this encounter [facility] note* Diagnosis Cirrhosis of liver without ascites, unspecified hepatic cirrhosis type- Primary documented in this encounter [facility] note* Diagnosis Cirrhosis of liver without ascites, unspecified hepatic cirrhosis type- Primary documented in this encounter [facility] note* Diagnosis Encounter for screening mammogram for breast cancer documented in this encounter [facility] for referral (narrative)* Diagnostic Procedure Only (Routine) - Pending Review Specialty Diagnoses / Procedures Referred By Vitaly brown Referred To Contact [facility] Diagnoses Encounter for screening mammogram for breast cancer Procedures ELEANOR SCREENING SCREENING MAMMOGRAPHY BI 2-VIEW BREAST INC CAD Elvis Culp MD [address] [place] [address] [facility] [id number] [place] [address] Referral ID Status Reason Start Date Expiration Date Visits Requested Visits Authorized [id number] Pending Review Auto-Generat ed Referral 10/19/2023 1 1 [facility] for referral (narrative)* Diagnostic Procedure Only (Routine) - Pending Review Specialty Diagnoses / Procedures Referred By Vitaly brown Referred To Contact [facility] Diagnoses Encounter for screening mammogram for breast cancer Procedures ELEANOR SCREENING SCREENING MAMMOGRAPHY BI 2-VIEW BREAST INC Elvis Lovell MD [address] [place] [address] [facility] [address] [place] [address] Referral ID Status Reason Start Date Expiration Date Visits Requested Visits Authorized [id number] Pending Review Auto-Generat ed Referral 08/28/2023 09/26/2024 1 1 [facility] Summary Purpose Family History No Family History Records FoundNo Family History Records FoundNo Family History Records FoundNo Family History Records FoundNo Family History Records FoundNo Family History Records Found Advance Directives Documents on File Type Date Recorded Patient Horse Race Starter Expl anation Advance Directive(s) 01/19/2019 6:15 AM Advance Directive(s) 12/30/2018 2:01 PM Advance Directive(s) 10/08/2018 11:32 AM Advance Directive(s) 10/03/2018 2:15 PM Documents on File Type Date Recorded Patient Horse Race Starter Expl anation Advance Directive(s) 10/04/2022 12:16 PM Documents on File Type Date Recorded Patient Horse Race Starter Expl anation Advance Directive(s) 10/04/2022 12:16 PM Hospital Course Note HNO ID: [id number] Author: Preethi Rivers Service: Cardiovascular Disease Author Type: Nurse Practitioner Type: Discharge Summary Filed: 01/20/2019 5:14 PM Note Text: Attestation signed by Kailee Sanchez MD at 01/21/2019 12:40 PM Kailee Sanchez MD Electrophysiology staff pager [phone] January 21, 2019 12:40 PM DISCHARGE SUMMARY PATIENT NAME: Robbin Morse ADMISSION DATE: 01/19/2019 DISCHARGE DATE: 01/20/2019 ATTENDING PHYSICIAN: Kailee Jefferson* Code Status: Not on file Highest Readmission Risk Score: 16 The 30 day readmissions risk score is derived from an internally validated risk model which evaluates patient level characteristics, utilization history, medication orders and lab results up until the day of discharge. Patients with a score of 40 or above are considered highest risk fo (more content not included)... Reason for Referral Specialty Diagnoses / Procedures Referred By Contac t Referred To Contact Diagnoses Cirrhosis of liver without ascites, unspecified hepatic cirrhosis type Procedures US ABDOMEN RUQ/LIVER/GB America Hinds MD [address] [place] [address] Referral ID Status Reason Start Date Expiration Date V isits Requested Visits Authorized [id number] New Request 06/20/2023 07/14/2024 1 1 Additional Source Comments INFORMATION SOURCE (unrecogn ized section and content) DATE CREATED AUTHOR AUTHOR'S ORGANIZ ATION 05/15/2018 [facility] DATE CREATED AUTHOR AUTHOR'S ORGANIZ ATION 01/24/2019 [facility] DATE CREATED AUTHOR AUTHOR'S ORGANIZ ATION 04/10/2019 [facility] DATE CREATED AUTHOR AUTHOR'S ORGANIZ ATION 06/21/2023 [facility] DATE CREATED AUTHOR AUTHOR'S ORGANIZ ATION 10/08/2023 [facility] Source Comments (unrecognize d section and content) In the event this informatio n is protected by the Federal Confidentiality of Alcohol and Drug Abuse Patient Records regulations: The Federal rules restrict any use of the information to criminally investigate or prosecute any alcohol or drug abuse patient.[facility] the event this information is protected by the Federal Confidentiality of Alcohol and Drug Abuse Patient Records regulations: The Federal rules restrict any use of the information to criminally investigate or prosecute any alcohol or drug abuse patient.[facility] HospitalIn the event this information is protected by the Federal Confidentiality of Alcohol and Drug Abuse Patient Records regulations: The Federal rules restrict any use of the information to criminally investigate or prosecute any alcohol or drug abuse patient.[facility] HospitalIn the event this information is protected by the Federal Confidentiality of Alcohol and Drug Abuse Patient Records regulations: The Federal rules restrict any use of the information to criminally investigate or prosecute any alcohol or drug abuse patient.[facility] HospitalIn the event this information is protected by the Federal Confidentiality of Alcohol and Drug Abuse Patient Records regulations: The Federal rules restrict any use of the information to criminally investigate or prosecute any alcohol or drug abuse patient.[facility] HospitalIn the event this information is protected by the Federal Confidentiality of Alcohol and Drug Abuse Patient Records regulations: The Federal rules restrict any use of the information to criminally investigate or prosecute any alcohol or drug abuse patient.[facility] HospitalIn the event this information is protected by the Federal Confidentiality of Alcohol and Drug Abuse Patient Records regulations: The Federal rules restrict any use of the information to criminally investigate or prosecute any alcohol or drug abuse patient.[facility] HospitalIn the event this information is protected by the Federal Confidentiality of Alcohol and Drug Abuse Patient Records regulations: The Federal rules restrict any use of the information to criminally investigate or prosecute any alcohol or drug abuse patient.[facility]In the event this information is protected by the Federal Confidentiality of Alcohol and Drug Abuse Patient Records regulations: The Federal rules restrict any use of the information to criminally investigate or prosecute any alcohol or drug abuse patient.[facility] HospitalIn the event this information is protected by the Federal Confidentiality of Alcohol and Drug Abuse Patient Records regulations: The Federal rules restrict any use of the information to criminally investigate or prosecute any alcohol or drug abuse patient.[facility] the event this information is protected by the Federal Confidentiality of Alcohol and Drug Abuse Patient Records regulations: The Federal rules restrict any use of the information to criminally investigate or prosecute any alcohol or drug abuse patient.[facility]In the event this information is protected by the Federal Confidentiality of Alcohol and Drug Abuse Patient Records regulations: The Federal rules restrict any use of the information to criminally investigate or prosecute any alcohol or drug abuse patient.[facility] HospitalIn the event this information is protected by the Federal Confidentiality of Alcohol and Drug Abuse Patient Records regulations: The Federal rules restrict any use of the information to criminally investigate or prosecute any alcohol or drug abuse patient.[facility] the event this information is protected by the Federal Confidentiality of Alcohol and Drug Abuse Patient Records regulations: The Federal rules restrict any use of the information to criminally investigate or prosecute any alcohol or drug abuse patient.[facility]In the event this information is protected by the Federal Confidentiality of Alcohol and Drug Abuse Patient Records regulations: The Federal rules restrict any use of the information to criminally investigate or prosecute any alcohol or drug abuse patient.[facility]In the event this information is protected by the Federal Confidentiality of Alcohol and Drug Abuse Patient Records regulations: The Federal rules restrict any use of the information to criminally investigate or prosecute any alcohol or drug abuse patient.[facility]In the event this information is protected by the Federal Confidentiality of Alcohol and Drug Abuse Patient Records regulations: The Federal rules restrict any use of the information to criminally investigate or prosecute any alcohol or drug abuse patient.[facility] HospitalIn the event this information is protected by the Federal Confidentiality of Alcohol and Drug Abuse Patient Records regulations: The Federal rules restrict any use of the information to criminally investigate or prosecute any alcohol or drug abuse patient.[facility]In the event this information is protected by the Federal Confidentiality of Alcohol and Drug Abuse Patient Records regulations: The Federal rules restrict any use of the information to criminally investigate or prosecute any alcohol or drug abuse patient.[facility]In the event this information is protected by the Federal Confidentiality of Alcohol and Drug Abuse Patient Records regulations: The Federal rules restrict any use of the information to criminally investigate or prosecute any alcohol or drug abuse patient.[facility] HospitalIn the event this information is protected by the Federal Confidentiality of Alcohol and Drug Abuse Patient Records regulations: The Federal rules restrict any use of the information to criminally investigate or prosecute any alcohol or drug abuse patient.[facility] HospitalIn the event this information is protected by the Federal Confidentiality of Alcohol and Drug Abuse Patient Records regulations: The Federal rules restrict any use of the information to criminally investigate or prosecute any alcohol or drug abuse patient.[facility] HospitalIn the event this information is protected by the Federal Confidentiality of Alcohol and Drug Abuse Patient Records regulations: The Federal rules restrict any use of the information to criminally investigate or prosecute any alcohol or drug abuse patient.[facility] HospitalIn the event this information is protected by the Federal Confidentiality of Alcohol and Drug Abuse Patient Records regulations: The Federal rules restrict any use of the information to criminally investigate or prosecute any alcohol or drug abuse patient.[facility] HospitalIn the event this information is protected by the Federal Confidentiality of Alcohol and Drug Abuse Patient Records regulations: The Federal rules restrict any use of the information to criminally investigate or prosecute any alcohol or drug abuse patient.[facility] HospitalIn the event this information is protected by the [facility] Confidentiality of Alcohol and Drug Abuse Patient Records regulations: The Federal rules restrict any use of the information to criminally investigate or prosecute any alcohol or drug abuse patient.[facility] HospitalIn the event this information is protected by the Federal Confidentiality of Alcohol and Drug Abuse Patient Records regulations: The Federal rules restrict any use of the information to criminally investigate or prosecute any alcohol or drug abuse patient.[facility] Care Teams (unrecognized sec tion and content) 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 Relationship Specialty Start Date End Date Elvis Culp MD [address] [place], [place] [address] PCP - General Family Practice 07/31/21 Kailee Shay MD [address] [place] [address] Primary Staff Physician Cardiology 01/13/19 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 Relationship Specialty Start Date End Date Elvis Culp MD [address] [place], [place] [address] PCP - General Family Practice 07/31/21 Kailee Shay MD [address] [place] [address] Primary Staff Physician Cardiology 01/13/19 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 Relationship Specialty Start Date End Date Elvis Culp MD [address] [facility] [place] [address] PCP - General Family Practice 07/31/21 Kailee Shay MD [address] [place] [address] Primary Staff Physician Cardiology 01/13/19 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 Relationship Specialty Start Date End Date Elvis Culp MD [facility] [place] [address] PCP - General Family Practice 07/31/21 Kailee Shay MD [address] [place] [address] Primary Staff Physician Cardiology 01/13/19 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 Relationship Specialty Start Date End Date Elvis Culp MD [address] [place] [address] PCP - General Family Practice 07/31/21 Kailee Shay [facility] [address] [facility] [place] [address] Primary Staff Physician Cardiology 01/13/19 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 Relationship Specialty Start Date End Date Elvis Culp MD [facility] [place] [address] PCP - General Family Practice 07/31/21 Kailee Shay MD [address] [place] [address] Primary Staff Physician Cardiology 01/13/19 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 Relationship Specialty Start Date End Date Elvis Culp MD [facility] [place] [address] PCP - General Family Practice 07/31/21 Kailee Shay MD [address] [place] [address] Primary Staff Physician Cardiology 01/13/19 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 Relationship Specialty Start Date End Date Elvis Culp MD [facility] [place] [address] PCP - General Family Medicine 07/31/21 Kailee Shay MD [address] [place] [address] Primary Staff Physician Cardiology 01/13/19 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 Relationship Specialty Start Date End Date Elvis Culp MD [address] [place] [address] PCP - General Family Medicine 07/31/21 [address] [facility] [facility] [place] [address] Primary Staff Physician Cardiology 01/13/19 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 Relationship Specialty Start Date End Date Elvis Culp MD [facility] [place] [address] PCP - General Family Medicine 07/31/21 Kailee Sahy MD [address] [facility] [facility] [place] [address] Primary Staff Physician Cardiology 01/13/19 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 Relationship Specialty Start Date End Date Elvis Culp MD [facility] [place] [address] PCP - General Family Medicine 07/31/21 Kailee Shay MD [address] 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 Relationship Specialty Start Date End Date Elvis Culp MD [address] [place] [address] PCP - General Family Medicine 07/31/21 Kailee Shay MD [address] [place] [address] Primary Staff Physician Cardiology 01/13/19 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 Relationship Specialty Start Date End Date Elvis Culp MD [address] [place] [address] PCP - General Family Medicine 07/31/21 Kailee Shay MD [address] [place] [address] Primary Staff Physician Cardiology 01/13/19 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 Relationship Specialty Start Date End Date Elvis Culp MD [address] [place] [address] PCP - General Family Medicine 07/31/21 Kailee Shay MD [address] [place] [address] Primary Staff Physician Cardiology 01/13/19 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 Relationship Specialty Start Date End Date Elvis Culp MD [address] [place] [address] PCP - General Family Medicine 07/31/21 Kailee Shay MD [address] [place] [address] Primary Staff Physician Cardiology 01/13/19 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 Relationship Specialty Start Date End Date Elvis Culp MD [address] [place] [address] PCP - General Family Medicine 07/31/21 Kailee Shay MD [address] [place] [address] Primary Staff Physician Cardiology 01/13/19 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 Relationship Specialty Start Date End Date Elvis Culp MD [address] [place] [address] PCP - General Family Medicine 07/31/21 Kailee Shay MD [address] [place] [address] Primary Staff Physician Cardiology 01/13/19 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 Relationship Specialty [place] [address] [place] [address] PCP - General Family Medicine 04/09/22 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 Relationship Specialty Start Date End Date Elvis Culp MD [address] [place] [address] PCP - General Family Medicine 04/09/22 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 Relationship Specialty Start Date End Date Elvis Culp MD [address] [place] [address] PCP - General Family Medicine 07/31/21 Kailee Shay MD [address] [place] [address] Primary Staff Physician Cardiology 01/13/19 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 Relationship Specialty Start Date End Date Elvis Culp MD [address] [place] [address] PCP - General Family Medicine 07/31/21 Kailee Shay MD [address] [place] [address] Primary Staff Physician Cardiology 01/13/19 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 Relationship Specialty Start Date End Date Elvis Culp MD [address] [place] [address] PCP - General Family Medicine 07/31/21 Kailee Shay MD [address] [place] [address] Primary Staff Physician Cardiology 01/13/19 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 Relationship Specialty Start Date End Date Elvis Culp MD [address] [place] [address] PCP - General Family Medicine 07/31/21 Kailee Shay MD [address] [place] [address] Primary Staff Physician Cardiology 01/13/19 Reason for Visit (unrecogniz ed section and content) Reason Comments Imm/Inj Reason Comments Medicare Wellness Exam Patien is here fo r medicare wellness exam Reason Comments Results Reason Comments Urinary Frequency frequency and burnin g x 4 days Reason Onset Date Comments Refill Request 07/13/2022 Reason Comments outside EGD Reason Comments F/U 6 months Reason Onset Date Comments Refill Request 11/26/2022 Reason Comments XRay Report Reason Comments outside report Reason Onset Date Comments Refill Request 04/20/2023 Reason Comments Follow-up Reason Onset Date Comments Refill Request 07/22/2023 Reason Comments ext document labs Reason Onset Date Comments Refill Request 12/16/2023 FOR RECORDS PERTAINING TO PATIENTS WHO ARE OR HAVE BEEN ENROLLED IN A CHEMICAL DEPENDENCY/SUBSTANCEABUSE PROGRAM, SOME INFORMATION MAY BE OMITTED. This clinical summary was aggregated from multiple sources. Caution should be exercised in using it in the provision of clinical care. This summary normalizes information from multiple sources, and as a consequence, information in this document may materially change the coding, format and clinical context of patient data. In addition, data may be omitted in some cases. CLINICAL DECISIONS SHOULD BE BASED ON THE PRIMARY CLINICAL RECORDS. [facility] [employer] [facility]. provides no warranty or guarantee of the accuracy or completeness of information in this document.
[2024-01-02] MEDS: Lactated Ringers 1,000 ML 15 ML IV (06:40)
--- NOTE | 2024-01-02 06:41 | HP.PCM_ITS ---
History and Physical Date of Admission: 01/02/24 [facility] Complaint: 4 mo f/u Details: ROBBIN STILL, is a 68 F who presents to the office today for follow up. *[facility] hospitalization 07.22.21-07.24.21. [facility] ED with hematemesis in the setting of Xarelto with a hemoglobin of 7.6. Gastroenterology consulted and EGD performed with findings as below. During hospitalization a new diagnosis of liver cirrhosis r/t SANCHEZ was found. Bloodwork for autoimmune labs, autoimmune hepatitis, Paul?s disease and liver cancer tumor marker were within normal l imits. EGD 07.22.21 2 columns of nonbleeding grade 2 esophageal varices in the lower third of the esophagus with 4 bleeding angiodysplastic lesions in the anterior wall of the gastric body and 2 bleeding angiodysplastic lesions in the duodenum. US 07.22.21 hepatic measurement 13.7cm with coarse echotexture with microlobulated contours. EGD 07.24.21 found erythematous mucosa of the stomach and nonbleeding gastric ulcers with no stigmata of recent bleeding as well as duodenitis and chronic gastritis with portal hypertensive gastropathy. Esophageal banding performed for grade II esophageal varices. OV 08.09.21 start colestipol, continue protonix and ursodiol. OV 11.06.21 Continues with PPI and ursodiol; not taking lactulose. CT abd/pel 11.17.21 found diffuse contour of the liver consistent with cirrhotic changes and diffuse fatty infiltration of the liver. Small amount of fluid in keeping with ascites. Dilation of proximal common bile duct with transverse dimension of 1.6cm. Mild splenomegaly. Varicosities seen in splenic hilum. Small hiatal hernia. Diverticulosis. US abd and elastography 11.20.21 with liver measurement 13.5cm with heterogeneous echogenicity of the liver with a stiffness of 18 kPa compatible with F4. EGD 12.13.21 recently bleeding grade III esophageal varices, banded; portal hypertensive gastropathy. No specimens collected. OV 02.05.22 without HE signs. Loose stools with diet triggers are a difficulty. OV 04.06.22repeat EGD and biochemical workup. EGD 05.29.22 small <5mm esophageal varices; portal HTN gastropathy; duodenitis with rare neutrophils. OV 06.22.22 continue ursodiol. Update labs and imaging. EGD 09.10.22 noting Grade I esophageal varices, incompletely eradicated, banded; portal HTN gastropathy. No specimens collected. OV 09.25.22 continued postprandial diarrhea that is bothersome during travel. US RUQ 11.19.22 stable lobular contour of the liver; stable CBD dilation 16.3mm. OV 01.28.23 recently returned from visiting her son in [place]. Denies difficulty with confusion/brain fog, pruritis, jaundice, balance difficulty, sleep disturbance, edema. She did break her kneecap in September after tripping over a curb. Continues ursodiol, famotidine and PRN colestipol. [facility] liver transplant/hepatology/gastroenterology clinic 10.18.22 with recommendation for transplant if MELD remains above 15 consistently. MELD Child-Santizo plt INR AFP ESR/CRP 07.24.21 -- -- -- -- -- --/-- ASM, AMA WNL 10.. 16 -- 106 1.1 -- --/-- 01.24. 11 -- 73 1.0 -- /7.43 haptoglobin, ANCA, LAVERNE comp, hepatitis WNL. A1c H7.7, LDH H272, PREETHI H84 05.10.18 11 -- 76 1.1 -- 26/5.53 07.. 9 A 69 1.0 WNL --/-- 09.18.22 11 A 64 1.2 -- --/-- 05.24.23 10 A 51 1.1 22/ 3.99 OV 10.07.23- Pt stable since last visit. Has had increase in heartburn over the last month or so. Denies dysphagia, abdominal pain. BM are normal and goes 1-2 times a day. Is not having any swelling, dizziness or confusion. She was on PPI before but that caused her diarrhea therefore was changed to famotidine initially 20 mg twice daily and then 40 mg once daily. Patient also going for cruise about in November 2023 [employer]. ROS Const Constitutional: No fatigue ENT ENT: No difficulty swallowing Gastro GI: Positive for heartburn; No abdominal pain, belching, bloating, change in bowel habits, change in stool character, coffee ground emesis, constipation, cramping, diarrhea, difficulty swallowing, feeling full early, excessive flatus, incontinent of stools, Vomiting blood/hematemesis, Blood in stool, loose stools, Black,tarry stools, nausea/dyspepsia, pain with swallowing, vomiting or other Musc Musculoskeletal: No joint pain Skin Skin: No yellowing of the eye or itchy eyes Psych Psychiatric: No anxiety and No depression Endo Endocrine: No fatigue Aller/Imm Allergy/Immunologic: No itchy eyes Kyle/Lymp Hematologic/Lymphatic: No easy bleeding or easy bruising Exam Const General: cooperative, no acute distress and well developed Nutritional Appearance: average body habitus Orientation: alert, awake and oriented x3 [facility] Head: normocephalic and atraumatic Nose: external nose normal Face and sinus: normal facial exam Mouth: moist mucous membranes Eyes Pupils: PERRL EOM: EOM intact bilaterally Neck Neck: normal visual inspection, no meningeal signs and trachea midline Carotids: no bruits Chest Chest palpation & inspection: normal inspection of the chest Resp Effort & Inspection: normal respiratory effort and symmetric chest movement Auscultation: Bilateral: Clear to Auscultation Cardio Palpation: normal PMI Rate: regular rate Rhythm: regular rhythm Heart Sounds: S1 normal and S2 normal Other: Systolic murmur over right second ICS and LLSB. GI Auscultation: normal bowel sounds Percussion: normal to percussion Palpation: soft, no hepatosplenomegaly and no guarding Other: No clinically palpable ascites. Spleen not palpable. General: bimanual renal exam normal bilaterally, bladder normal to inspection and bladder normal to palpation Bimanual Exam- Vagina & Uterus: bladder normal to palpation [facility] Musculoskeletal: No joint tenderness, joint redness, joint warmth or decreased range of motion Thoracic/Lumbar Spine: thor and lumb spine abnorm to inspection Skin General: rashes and/or lesions noted, turgor normal and no erythema Wounds: wound noted Neuro General: patient alert, patient awake, patient oriented x3 and no focal motor deficits Speech: speech normal Motor: muscle tone normal throughout Extrem General: normal exam except as noted Other: No clinically pitting edema. Psych Appearance: grossly normal Mood: congruent mood Affect: normal affect Attitude: cooperative Quality Reporting Tobacco Screening ([facility] 138) Smoking Status: Never smoker Assessment and Plan Assessment and Plan (1) Cirrhosis: Status: Chronic Qualifiers: Ascites presence: without ascites Hepatic cirrhosis type: unspecified hepatic cirrhosis Qualified Code(s): K74.60 - Unspecified cirrhosis of liver Plan: At this time her meld is 14 as per 3 last MELD score in April 2023. Child-Santizo class A. August 2023 but that does not have PT/INR. Her platelet count is 45,000, creatinine 1.29, EGFR 4060 mill per minute total bilirubin 1.0. A1c 7.0. Fasting profile within normal limit. B12 5. H&H 9.5/28.2. WBC count 3.3 thousand. She denies any recent GI bleeding including hematemesis melena or hematochezia. No acute signs and symptoms of encephalopathy. Follow-up labs next including MELD labs in about 3 months along with AFP and MRI triple phase as HCC protocol. Patient also needs variceal surveillance with EGD. Her last EGD was in August 2022 which showed grade 1 esophageal varices, incompletely eradicated, banded, PHG. With increased in the GERD symptoms heartburn recommended pantoprazole 40 mg daily. If patient gets diarrhea in about 1 to 2 weeks advised to cut down to 20 mg daily. Will schedule EGD with Dr. Martinez. She will be traveling to [place] and and had already had hepatitis a and hepatitis B vaccinations. She was recommended miliaria, typhoid and yellow fever vaccine. Yellow fever vaccine is live vaccine otherwise rest are killed or inactivated. She is not on immunosuppressant medication or has autoimmune disease therefore she can have yellow fever vaccine too. Advised follow-up with PCP for vaccination. She will also needs chemoprophylaxis for malaria. Follow with PCP. (2) Esophageal varices: Status: Chronic Qualifiers: Esophageal varices bleeding: without bleeding Esophageal varices type: unspecified type Qualified Code(s): I85.00 - Esophageal varices without bleeding Plan: As mentioned above, we will schedule EGD with Dr. Martinez. Orders: Orders CBC W/Diff, Automated 3 Months I85.00 - Esophageal varices without bleeding, K74.60 - Unspecified cirrhosis of liver Comprehensive Metabolic Profil 3 Months I85.00 - Esophageal varices without bleeding, K74.60 - Unspecified cirrhosis of liver CRP 3 Months I85.00 - Esophageal varices without bleeding, K74.60 - Unspecified cirrhosis of liver AFP, Tumor Marker 3 Months I85.00 - Esophageal varices without bleeding, K74.60 - Unspecified cirrhosis of liver Vitamin D,25 Hydroxy 3 Months I85.00 - Esophageal varices without bleeding, K74.60 - Unspecified cirrhosis of liver Prothrombin Time w/INR 3 Months I85.00 - Esophageal varices without bleeding, K74.60 - Unspecified cirrhosis of liver Ammonia 3 Months I85.00 - Esophageal varices without bleeding, K74.60 - Unspecified cirrhosis of liver MRI Abd WITH and W/O Contrast 3 Months I85.00 - Esophageal varices without bleeding, K74.60 - Unspecified cirrhosis of liver Medications: New pantoprazole Take 1 hour before breakfast. 40 mg PO .breakfast 1 month 30 tabs 2RF Discontinued famotidine Discontinued Reason: Discontinued by PCP/other physicians 40 mg PO DAILY 90 tabs 3RF I have examined the patient and the H&P has been reviewed. There are no clinical changes since date of exam.
--- NOTE | 2024-01-02 07:29 | OP.EGD_ITS ---
Patient Name: Jacqueline Morse Procedure Date: 01/02/2024 6:59 AM Date of : 1955 Age: 68 Procedure: Upper GI endoscopy Indications: For therapy of esophageal varices Providers: Minh Martinez DO Medicines: Monitored Anesthesia Care Patient Profile: This is a 68 year old female. Refer to note in patient chart for documentation of history and physical. Patient has symptoms of chronic nausea. Complications: No immediate complications. Procedure: Pre-Anesthesia Assessment: - Prior to the procedure, a History and Physical was performed, and patient medications and allergies were reviewed. The patient is competent. The risks and benefits of the procedure and the sedation options and risks were discussed with the patient. All questions were answered and informed consent was obtained. Patient identification and proposed procedure were verified by the physician in the pre-procedure area. Mental Status Examination: alert and oriented. Airway Examination: normal oropharyngeal airway and neck mobility. Respiratory Examination: clear to auscultation. CV Examination: normal. Prophylactic Antibiotics: The patient does not require prophylactic antibiotics. Prior Anticoagulants: The patient has taken no anticoagulant or antiplatelet agents. ASA Grade Assessment: III - A patient with severe systemic disease. After reviewing the risks and benefits, the patient was deemed in satisfactory condition to undergo the procedure. The anesthesia plan was to use monitored anesthesia care (MAC). Immediately prior to administration of medications, the patient was re-assessed for adequacy to receive sedatives. The heart rate, respiratory rate, oxygen saturations, blood pressure, adequacy of pulmonary ventilation, and response to care were monitored throughout the procedure. The physical status of the patient was re-assessed after the procedure. After obtaining informed consent, the endoscope was passed under direct vision. Throughout the procedure, the patient's blood pressure, pulse, and oxygen saturations were monitored continuously. The Endoscope was introduced through the mouth, and advanced to the second part of duodenum. The upper GI endoscopy was accomplished without difficulty. The patient tolerated the procedure well. Scope In: 7:19:45 AM Scope Out: 7:23:05 AM Total Procedure Duration Time 0 hours 3 minutes 20 seconds Findings: Grade I varices were found in the lower third of the esophagus. They were 6 mm in largest diameter. Severe portal hypertensive gastropathy was found in the entire examined stomach. Diffuse moderately erythematous mucosa without active bleeding and with no stigmata of bleeding was found in the duodenal bulb, in the first portion of the duodenum and in the second portion of the duodenum. Impression: - Grade I esophageal varices. - Portal hypertensive gastropathy. - Erythematous duodenopathy. - No specimens collected. Recommendation: - Discharge patient to home. - Resume previous diet. - Continue present medications. Procedure Code(s): --- Professional --- 24842, Esophagogastroduodenoscopy, flexible, transoral; diagnostic, including collection of specimen(s) by brushing or washing, when performed (separate procedure) CPT copyright 2021 [employer] [place] [employer] [employer]. All rights reserved. The codes documented in this report are preliminary and upon coder operator review may be revised to meet current compliance requirements. Minh Martinez DO 01/02/2024 7:28:18 AM This report has been signed electronically. Number of Addenda: 0 Note Initiated On: 01/02/2024 6:59 AM
--- NOTE | 2024-01-02 07:30 | OP.CCLET_ITS ---
01/02/2024 Billy Wong MD Re : Upper GI endoscopy procedure for Jacqueline Morse Dear Dr. Wong This procedure was performed on December. My impressions and recommendations are as follows: Impressions : - Grade I esophageal varices. - Portal hypertensive gastropathy. - Erythematous duodenopathy. - No specimens collected. Recommendations : - Discharge patient to home. - Resume previous diet. - Continue present medications. My findings are described in the full procedure note, which is enclosed. If I can be of further assistance, please feel free to contact me at . Sincerely, Minh Martinez, 01/02/2024 7:28:18 AM This report has been signed electronically.
== END 2024-01-02 08:40 | disposition home or self-care (01) ==
LOC: EN 06:19 → AC 06:20
PROVIDERS: PCP Family Medicine; Referring Provider Family Medicine; Visit Provider Internal Medicine Gastroenterology
PROC: 0DJ08ZZ Inspection of Upper Intestinal Tract, Via Natural or Artificial Opening Endoscopic (ICD-10-PCS; CPT 43235; principal; 2024-01-02 07:10)
DX: I85.00 Esophageal varices without bleeding (principal); K76.6 Portal hypertension; K74.60 Unspecified cirrhosis of liver; K31.89 Other diseases of stomach and duodenum
CPT/HCPCS: 43235; J7120; J2405

== ENCOUNTER → 2024-02-03 | Outpatient (CLI) | payer MEDICARE, OTHER, SELFPAY ==
--- NOTE | 2024-02-03 10:04 | MRI_ITS ---
EXAM: MR ABDOMEN WITHOUT AND WITH INTRAVENOUS CONTRAST CLINICAL INDICATION: HCC Screening, SANCHEZ cirrhosis -- Triple phase, HCC protocol TECHNIQUE: Multiplanar and multisequence MR images of the abdomen without and with intravenous contrast. CONTRAST: IV Clariscan 12ml COMPARISON: No relevant prior studies available. FINDINGS: LOWER THORAX: See below. LIVER: Nodular contour of the liver related to underlying cirrhosis. No focal mass lesion within the liver.. GALLBLADDER AND BILE DUCTS: Gallbladder is absent. Common bile duct is dilated measuring 16 mm in maximum diameter. No evidence of an obstructing stone or mass. PANCREAS: Normal. No focal cystic or solid mass. SPLEEN: Spleen is mildly enlarged. ADRENALS: Normal. No nodules. KIDNEYS AND URETERS: Normal. Normal renal size and position. No hydronephrosis. INTRAPERITONEAL SPACE: Moderate volume ascites. No free air. VASCULATURE: Portal vein is patent. Coronary vein is prominent in size and appears contiguous with varices at the esophagogastric junction. Abdominal aorta is non-dilated. LYMPH NODES: No enlarged lymph nodes. MRI/MRI Abd WITH and W/O Contrast IMPRESSION: 1. Liver cirrhosis with findings related to portal hypertension. 2. No evidence of liver mass. Electronically Signed: Reginald Mortensen MD at 17:08 EDT ,
[2024-02-03 10:08] LABS: Absolute Lymphocyte Count 0.39 X10^3/uL (0.83-4.51); Basophil# 0.02 X10^3/uL; Basophil% 0.5 % (0-1); Eosinophil# 0.14 X10^3/uL; Eosinophils% 3.5 % (0-5); Hematocrit 30.5 % (37-47); Hemoglobin 10.3 g/dL (12.0-15.0); Lymphocyte # 0.39 X10^3/ul (0.83-4.51); Lymphocyte % 9.8 % (19-41); Mean Corp Hgb Conc 33.8 g/dL (32-36); Mean Corpuscular Hgb 34.2 pg (27.0-32.0); Mean Corpuscular Volume 101.3 fL (81-99); Mean Platelet Vol. 10.4 fl (6.2-12.0); Monocyte# 0.35 X10^3/uL; Monocyte% 8.8 % (0-10); NRBC Flagged by Analyzer 0 % (0-5); Neutrophil # 3.04 X10^3/uL (2.7-7.7); Neutrophil % 76.6 % (47-70); POSITIVE COUNT YES; POSITIVE DIFFERENTIAL YES; Platelet Count 55 K/mm3 (150-450); RBC Distribution Width SD 48.8 fl (35.1-43.9); Red Blood Count 3.01 M/mm3 (4.2-5.4)
[2024-02-03 10:23] LABS: International Normalized Ratio 1.2
[2024-02-03 10:25] LABS: ALB/GLOB Ratio 0.8 RATIO (0.9-2.4); AST(SGOT) 48 U/L (15-37); Alanine Aminotransfer ALT/SGPT 40 U/L (13-56); Albumin, Serum 3.2 g/dL (3.2-5.0); Alkaline Phosphatase 83 U/L (45-117); Anion Gap 8 (5-15); BUN 17 mg/dL (7-18); BUN/Creat Ratio 12.4 RATIO (10-20); CRP 8.42 mg/L (0.0-3.0); Calcium,Total 9.4 mg/dL (8.5-10.1); Chloride 105 mmol/L (98-107); Creatinine, Serum 1.37 mg/dL (0.55-1.02); EST Glomerular Filtration Rate 41 mL/min (>60); Est Glom Filt Rate - Afr Amer 49 mL/min (>60); Globulin 3.9 g/dL (2.2-4.2); Glucose 88 mg/dL (74-106); Potassium 4.2 mmol/L (3.5-5.1); Protein, Total 7.1 g/dL (6.4-8.2); Sodium Level 138 mmol/L (136-145)
[2024-02-03 10:27] LABS: Vitamin D,25 Hydroxy 51.9 ng/mL
[2024-02-04 04:07] LABS: AFP, Tumor Marker 10.5 ng/mL (0.0-9.2)
== END | disposition home or self-care (01) ==
LOC: MRI 09:44
PROVIDERS: PCP Family Medicine; Referring Provider Internal Medicine; Visit Provider Internal Medicine
DX: K74.60 Unspecified cirrhosis of liver (principal); I85.00 Esophageal varices without bleeding
CPT/HCPCS: 74183; 80053; 82105; 82140; 82306; 85025; 85610; 86140; A9575; A4216

== ENCOUNTER → 2024-02-19 | Outpatient (CLI) | payer MEDICARE, OTHER, SELFPAY ==
[2024-02-19 12:00] LABS: Anion Gap 6 (5-15); BUN 15 mg/dL (7-18); BUN/Creat Ratio 11.2 RATIO (10-20); Calcium,Total 9.5 mg/dL (8.5-10.1); Chloride 108 mmol/L (98-107); Creatinine, Serum 1.34 mg/dL (0.55-1.02); EST Glomerular Filtration Rate 42 mL/min (>60); Est Glom Filt Rate - Afr Amer 51 mL/min (>60); Glucose 114 mg/dL (74-106); Magnesium 1.7 mg/dL (1.6-2.6); Phosphorus 2.7 mg/dL (2.5-4.9); Potassium 4.4 mmol/L (3.5-5.1); Sodium Level 139 mmol/L (136-145)
== END | disposition home or self-care (01) ==
LOC: LAB 10:35
PROVIDERS: PCP Family Medicine; Referring Provider Internal Medicine; Visit Provider Internal Medicine
DX: I85.00 Esophageal varices without bleeding (principal); K74.60 Unspecified cirrhosis of liver; R60.9 Edema, unspecified
CPT/HCPCS: 36415; 80048; 83735; 84100

== ENCOUNTER → 2024-05-05 | Outpatient (CLI) | payer MEDICARE, OTHER, SELFPAY ==
[2024-05-05 10:45] LABS: Absolute Lymphocyte Count 0.53 X10^3/uL (0.83-4.51); Absolute Neutrophil Count 2.9 X10^3/uL (2.0-7.7); Basophil# 0.03 X10^3/uL; Basophil% 0.8 % (0-1); Eosinophils% 2.6 % (0-5); Hematocrit 28.6 % (37-47); Hemoglobin 9.6 g/dL (12.0-15.0); Lymphocyte # 0.53 X10^3/ul (0.83-4.51); Lymphocyte % 13.5 % (19-41); Mean Corp Hgb Conc 33.6 g/dL (32-36); Mean Corpuscular Hgb 33.4 pg (27.0-32.0); Mean Corpuscular Volume 99.7 fL (81-99); Mean Platelet Vol. 9.9 fl (6.2-12.0); Monocyte# 0.36 X10^3/uL; Monocyte% 9.2 % (0-10); NRBC Flagged by Analyzer 0 % (0-5); Neutrophil # 2.87 X10^3/uL (2.7-7.7); Neutrophil % 73.1 % (47-70); POSITIVE COUNT YES; POSITIVE DIFFERENTIAL YES; Platelet Count 56 K/mm3 (150-450); RBC Distribution Width CV 14.4 % (11.6-14.6); RBC Distribution Width SD 52.5 fl (35.1-43.9); Red Blood Count 2.87 M/mm3 (4.2-5.4); White Blood Count 3.9 K/mm3 (4.4-11.0)
[2024-05-05 10:48] LABS: International Normalized Ratio 1.3; Prothrombin Time (Protime)PT. 15.8 SECONDS (11.7-14.9)
[2024-05-05 10:49] LABS: Differential Indicated SCAN CRITERIA MET
[2024-05-05 11:28] LABS: ALB/GLOB Ratio 0.7 RATIO (0.9-2.4); AST(SGOT) 33 U/L (15-37); Alanine Aminotransfer ALT/SGPT 30 U/L (13-56); Albumin, Serum 3.1 g/dL (3.2-5.0); Alkaline Phosphatase 102 U/L (45-117); Anion Gap 5 (5-15); BUN 16 mg/dL (7-18); BUN/Creat Ratio 11.9 RATIO (10-20); CRP 6.58 mg/L (0.0-3.0); Calcium,Total 9.5 mg/dL (8.5-10.1); Chloride 107 mmol/L (98-107); Cholesterol 135 mg/dL (200); Creatinine, Serum 1.34 mg/dL (0.55-1.02); EST Glomerular Filtration Rate 42 mL/min (>60); Est Glom Filt Rate - Afr Amer 51 mL/min (>60); Globulin 4.2 g/dL (2.2-4.2); Glucose 184 mg/dL (74-106); High Density Lipoprotein 69 mg/dL; Potassium 4.6 mmol/L (3.5-5.1); Protein, Total 7.3 g/dL (6.4-8.2); Sodium Level 137 mmol/L (136-145); Triglycerides 96 mg/dL; Very Low Density Lipoprotein 19 mg/dL (5-40)
[2024-05-05 12:17] LABS: Hemoglobin A1c 6.4 % (3.8-5.6)
[2024-05-05 12:28] LABS: Differential Comment SCANNED; Platelet Estimate MOD DEC (ADEQ)
== END | disposition home or self-care (01) ==
PROVIDERS: PCP Family Medicine; Referring Provider Internal Medicine; Visit Provider Internal Medicine
DX: E11.9 Type 2 diabetes mellitus without complications (principal); I85.00 Esophageal varices without bleeding; K74.60 Unspecified cirrhosis of liver; E78.5 Hyperlipidemia, unspecified
CPT/HCPCS: 36415; 80053; 80061; 82140; 83036; 85025; 85610; 86140

== ENCOUNTER 2024-07-19 10:16 | Inpatient (IN) | payer MEDICARE, OTHER, SELFPAY ==
[2024-07-19 10:16] VITALS: BP 138/68; PULSE 81; RESP 14; TEMP 36.8; O2SAT 98; BMI 23.4
[2024-07-19] MEDS: 0.9% Normal Saline (1000mL) 1,000 ML 999 ML IV (11:34)
[2024-07-19 11:41] LABS: Absolute Lymphocyte Count 0.71 X10^3/uL (0.83-4.51); Absolute Neutrophil Count 4.6 X10^3/uL (2.0-7.7); Basophil# 0.03 X10^3/uL; Basophil% 0.5 % (0-1); Eosinophil# 0.14 X10^3/uL; Eosinophils% 2.3 % (0-5); Hematocrit 29.7 % (37-47); Hemoglobin 10.3 g/dL (12.0-15.0); Lymphocyte # 0.71 X10^3/ul (0.83-4.51); Lymphocyte % 11.9 % (19-41); Mean Corp Hgb Conc 34.7 g/dL (32-36); Mean Corpuscular Hgb 34.2 pg (27.0-32.0); Mean Corpuscular Volume 98.7 fL (81-99); Mean Platelet Vol. 9.5 fl (6.2-12.0); Monocyte# 0.44 X10^3/uL; Monocyte% 7.4 % (0-10); NRBC Flagged by Analyzer 0 % (0-5); Neutrophil % 77.2 % (47-70); Platelet Count 118 K/mm3 (150-450); RBC Distribution Width SD 46.1 fl (35.1-43.9); Red Blood Count 3.01 M/mm3 (4.2-5.4)
[2024-07-19] MEDS: Pantoprazole Sodium 40 MG in 0.9% Normal Saline (100mL MB+) 100 ML 330 MG IV (11:49)
[2024-07-19 11:58] LABS: ALB/GLOB Ratio 0.7 RATIO (0.9-2.4); AST(SGOT) 34 U/L (15-37); Alanine Aminotransfer ALT/SGPT 29 U/L (13-56); Albumin, Serum 3.2 g/dL (3.2-5.0); Alkaline Phosphatase 152 U/L (45-117); Anion Gap 8 (5-15); BUN 26 mg/dL (7-18); Calcium,Total 11.8 mg/dL (8.5-10.1); Chloride 105 mmol/L (98-107); Creatinine, Serum 1.37 mg/dL (0.55-1.02); EST Glomerular Filtration Rate 41 mL/min (>60); Est Glom Filt Rate - Afr Amer 49 mL/min (>60); Estimated Creatinine Clearance 29.66 ml/min; Globulin 4.5 g/dL (2.2-4.2); Glucose 186 mg/dL (74-106); Lipase 129 U/L (13-75); Potassium 4.8 mmol/L (3.5-5.1); Protein, Total 7.7 g/dL (6.4-8.2); Sodium Level 133 mmol/L (136-145)
[2024-07-19] MEDS: Ceftriaxone 1 GM/50 ML BAG IV (11:59)
[2024-07-19] MEDS: Octreotide 0.5 MG in Dextrose 5%-Water (250mL Bag) 250 ML 12.5 MG CONT INF (12:00)
[2024-07-19] MEDS: Pantoprazole Sodium 80 MG in 0.9% Normal Saline (100mL Bag) 80 ML 10 MG CONT INF ×2 (12:10→20:46)
[2024-07-19 12:16] VITALS: BP 127/65; PULSE 80; RESP 16; O2SAT 98
--- NOTE | 2024-07-19 13:30 | EX.ED.DYSGE1 ---
HPI History of Present Illness Chief Complaint: GI Bleed Narrative Narrative: Patient is a 68-year-old female with past medical history of Hastings, cirrhosis, esophageal varices, vitamin B12 deficiency, pulmonary pretension, chronic kidney disease who presented to the emergency department with a chief complaint of vomiting blood. Patient states that this morning early when she woke up around 3 AM she had developed hematemesis. Patient states that she vomited a total of 3 times and noted that it was a large amount each time and each time became more red in nature. Patient denies any blood thinning medications. She states that she has been scoped in the past and follows with Dr. Martinez. Patient denies any other complaints at this point time. [facility] Medical History Cataract (lens) fragments in eye following cataract surgery, bilateral Chronic kidney disease (CKD) Difficult intravenous access Wears glasses History of GI bleed History of ulceration Non-smoker Shortness of breath on exertion History of echocardiogram Cardiology follow-up encounter History of rheumatic fever Esophageal varices Renal insufficiency Vitamin B 12 deficiency Pulmonary HTN Rheumatic mitral insufficiency Hyperlipidemia Essential hypertension Acquired thrombocytopenia Diarrhea Anemia Bleeding tendency Post-menopausal Restless legs History of stress test Irregular heartbeat Thrombocytopenia Cirrhosis Acute on chronic blood loss anemia Diabetes Atrial fibrillation Home Medications ?Medication ?Instructions ?Recorded ?Last Taken ?Type cholecalciferol (vitamin D3) 25 25 mcg PO DAILY supplement 12/12/21 01/01/24 08:30 History mcg (1,000 unit) tablet (Vitamin D3) glimepiride 4 mg tablet 4 mg PO DAILY 12/12/22 01/01/24 16:00 History carvedilol 6.25 mg tablet 6.25 mg PO BID #180 tabs 11/11/23 01/02/24 05:00 Rx ezetimibe 10 mg tablet 10 mg PO DAILY 12/31/23 01/01/24 19:00 History glimepiride 4 mg tablet 2 mg PO QHS 12/31/23 12/31/23 History magnesium oxide 400 mg (241.3 mg 400 mg PO BID 02/11/24 Unknown History magnesium) tablet metformin 500 mg tablet 1,000 mg PO BID 02/11/24 Unknown History famotidine 20 mg tablet 20 mg PO BID 90 days #180 tabs 05/11/24 Unknown Rx ferrous sulfate 325 mg (65 mg 325 mg PO DAILY 05/15/24 Unknown History iron) tablet colestipol 1 gram tablet 1 g PO DAILY PRN Diarrhea #90 tabs 07/04/24 Unknown Rx furosemide 20 mg tablet (Lasix) 20 mg PO DAILY edema 1 month #30 07/10/24 Unknown Rx tabs spironolactone 50 mg tablet 50 mg PO DAILY 1 month #30 tabs 07/10/24 Unknown Rx 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 07/10/24 Unknown Rx #180 tabs Allergy/AdvReac Type Severity Reaction Status Date / Time diltiazem (From Cardizem) AdvReac Intermediate elevates Verified 07/19/24 10:17 glucose sitagliptin (From Januvia) AdvReac Intermediate CP/SOB Verified 07/19/24 10:17 pioglitazone (From Actos) AdvReac Swelling Verified 07/19/24 10:17 [id number]-[id number] Reductase AdvReac MAKES MY Verified 07/19/24 10:17 Inhibitor (Mhteyur-Hhk-Cae LEGS ACHE Reductase Inhibitor) Family History Father No problems noted. Surgical History History of bilateral cataract extraction (~08/2023) History of colonoscopy S/P ablation of atrial fibrillation History of cholecystectomy History of History of esophagogastroduodenoscopy (EGD) History of prior ablation treatment Social History Smoking Status: Never smoker alcohol intake: never substance use type: does not use caffeine: Yes what type of physical activity do you participate in: walking frequency: 3-4 times per week ROS ROS ED ROS Narrative Constitutional: Denies any fevers, chills, headaches, lightness, dizziness Eyes: Denies change in vision double vision blurry vision Cardiovascular: Denies chest pain or palpitations Respiratory: Denies coughing wheezing shortness of breath Abdomen: Complains of hematemesis as noted above denies any abdominal pain diarrhea denies any dark tarry stools denies blood in her stool : Denies any urinary symptoms Neurological: Denies numbness, weakness, tingling Skin: Denies rashes lesions EXAM Physical Exam Narrative Exam Narrative: General: Patient lying in bed rest comfortably did not appear to be in acute distress Head: Atraumatic, normocephalic Eyes: PERRL bilaterally, EOMI bilateral, no conjunctival injection noted Neck: Soft, supple, trachea midline Cardiovascular: Regular rate and rhythm no murmurs gallops rubs noted Respiratory: Clear to auscultation bilaterally no rales rhonchi wheeze noted Abdomen: Soft, nondistended, no tenderness palpation can bowel sounds present x 4 Extremities: +5/5 strength noted in the bilateral upper and lower extremities, no pedal edema on exam Neurological: Patient follow commands knew that she was at [facility] year is 2023 Skin: Warm, dry, intact Const Vital Signs: 07/19/24 10:16 07/19/24 12:16 Temperature 98.3 F Temperature Source Temporal Pulse Rate 81 80 Respiratory Rate 14 16 Blood Pressure 138/68 H 127/65 H Blood Pressure Mean 91 85 Pulse Ox 98 98 Oxygen Delivery Method Room Air Room Air MDM MDM MDM Narrative Medical decision making narrative: Patient is a 68-year-old female who presented to the emergency department with a chief complaint of hematemesis. Patient will have workup performed here on the differential diagnose includes Melamin to Cari-Jackson tear, esophageal varices, peptic ulcer disease, gastritis. Once workup is obtained reviewed she will be reevaluated. Patient will be given Protonix, Protonix drip, octreotide, Rocephin, IV fluids. Called and notified Dr. Martinez immediately of the patient and the case which she is aware of. Patient CBC reviewed and showed no evidence leukocytosis white blood count normal at 6, hemoglobin stable at 10.3, platelet count was noted be low at 118 however when compared to previous blood draw she is chronically thrombocytopenic and her is better than in the past. Patient's sodium normal 133, potassium normal 4.8, creatinine was 1.37 once again she does have underlying chronic kidney disease which appears to be around her baseline. Patient's AST and ALT were 34 and 29 respectively, lipase elevated 129 however she has no tenderness to palpation on exam. Patient's case will be discussed with hospitalist for admission. Discussed case with hospitalist Dr. Olmos who accept patient for admission. Patient notified with all question concerns answered at bedside. Lab Data Labs: Laboratory Results - last 24 hr 07/19/24 11:35 WBC 6.0 RBC 3.01 L Hgb 10.3 L Hct 29.7 L MCV 98.7 MCH 34.2 H MCHC 34.7 RDW Std Deviation 46.1 H RDW Coeff of Jimmy 13.0 Plt Count 118 L MPV 9.5 Immature Gran % (Auto) 0.700 Neut % (Auto) 77.2 H Lymph % (Auto) 11.9 L [place] % (Auto) 7.4 Eos % (Auto) 2.3 Baso % (Auto) 0.5 Absolute Neuts (auto) 4.6 Absolute Lymphs (auto) 0.71 L Nucleated RBC % 0 Sodium 133 L Potassium 4.8 Chloride 105 Carbon Dioxide 20.0 L Anion Gap 8 BUN 26 H Creatinine 1.37 H Estim Creat Clear Calc 29.66 Est GFR (MDRD) Af Amer 49 L Est GFR (MDRD) Non-Af 41 L BUN/Creatinine Ratio 19.0 Glucose 186 H Calcium 11.8 H Total Bilirubin 1.10 H AST 34 ALT 29 Alkaline Phosphatase 152 H Total Protein 7.7 Albumin 3.2 Globulin 4.5 H Albumin/Globulin Ratio 0.7 L Lipase 129 H Discharge Plan Triage Chief Complaint: GI Bleed ED Provider: Sd Pearce Dx/Rx/DC Orders Clinical Impression: Cirrhosis, Esophageal varices, Hematemesis Prescriptions: No Action metformin 500 mg tablet 1,000 mg PO BID magnesium oxide 400 mg (241.3 mg magnesium) tablet 400 mg PO BID ferrous sulfate 325 mg (65 mg iron) tablet 325 mg PO DAILY cholecalciferol (vitamin D3) [Vitamin D3] 25 mcg (1,000 unit) Tablet 25 mcg PO DAILY glimepiride 4 mg tablet 2 mg PO QHS ezetimibe 10 mg tablet 10 mg PO DAILY glimepiride 4 mg tablet 4 mg PO DAILY carvedilol 6.25 mg tablet 6.25 mg PO BID Qty: 180 3RF Rx Instructions: must administer with a meal/food famotidine 20 mg tablet 20 mg PO BID 90 Days Qty: 180 1RF colestipol 1 gram tablet 1 g PO DAILY PRN (Reason: Diarrhea) Qty: 90 3RF 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 mg tablet 250 mg PO BID Qty: 180 3RF furosemide [Lasix] 20 mg tablet 20 mg PO DAILY 30 Days Qty: 30 4RF Rx Instructions: take it once daily for 2 weeks and then once every other day spironolactone 50 mg tablet 50 mg PO DAILY 30 Days Qty: 30 4RF Rx Instructions: Hold if serum potassium more than 5.1. Primary Care Provider: Billy Wong Referrals: Billy Wong MD [Primary Care Provider] - Print Language: Estonian
[2024-07-19 14:00] VITALS: BP 94/46; PULSE 82; RESP 16; O2SAT 98
[2024-07-19 14:10] LABS: International Normalized Ratio 1.3
[2024-07-19 14:11] LABS: Partial Thromboplast Time 28.5 Seconds (24.1-36.2)
--- NOTE | 2024-07-19 14:39 | PCM.HP.STD ---
HPI - General General Date of Admission: 07/19/24 Date of Service: 07/19/24 Chief Complaint: Hematemasis HPI Narrative ROBBIN STILL, is a 68-year-old female history of HASTINGS cirrhosis, esophageal varices, pulmonary hypertension, CKD who presented to [facility] ED 07/19/2024 with chief complaint of vomiting blood. Woke up at 3 AM with hematemesis and vomited 3 total times with a large amount of red blood each time. Endorses she has been scoped in the past and follows with Dr. Martinez. GI contacted in the ED who are aware and recommended admission and GI c/s. Patient given Protonix, octreotide, Rocephin, IV fluids. Hospitalist contacted for admission. Patient evaluated bedside. She endorses several episodes of hematemesis overnight with her most recent episode at 3:30 AM and did not have any since that time. She is not having any abdominal pain at present and no blood per rectum. She reports she was diagnosed with COVID on the sixth of this month and since then has not had a great appetite and has been having difficulty taking her medications and she will a lot of burning after she takes her medicine and over the last week she has not been able to take some of them given this burning feeling and not being able to identify which medication is causing it. Has not been taking Protonix due to diarrhea and has not been taking famotidine either. Additionally reports that she was just in [place] hiking yesterday and was short of breath on exertion and feeling very weak, still will get shortness of breath on exertion but not feeling short of breath at this time denies any present abdominal pain, no blood in stool. Has had a chronic cough since COVID with overall fairly poor p.o. intake. [facility] Medical History Cataract (lens) fragments in eye following cataract surgery, bilateral Chronic kidney disease (CKD) Difficult intravenous access Wears glasses History of GI bleed History of ulceration Non-smoker Shortness of breath on exertion History of echocardiogram Cardiology follow-up encounter History of rheumatic fever Esophageal varices Renal insufficiency Vitamin B 12 deficiency Pulmonary HTN Rheumatic mitral insufficiency Hyperlipidemia Essential hypertension Acquired thrombocytopenia Diarrhea Anemia Bleeding tendency Post-menopausal Restless legs History of stress test Irregular heartbeat Thrombocytopenia Cirrhosis Acute on chronic blood loss anemia Diabetes Atrial fibrillation Home Medications ?Medication ?Instructions ?Recorded ?Last Taken ?Type cholecalciferol (vitamin D3) 25 25 mcg PO DAILY supplement 12/12/21 01/01/24 08:30 History mcg (1,000 unit) tablet (Vitamin D3) glimepiride 4 mg tablet 4 mg PO DAILY 12/12/22 01/01/24 16:00 History carvedilol 6.25 mg tablet 6.25 mg PO BID #180 tabs 11/11/23 01/02/24 05:00 Rx ezetimibe 10 mg tablet 10 mg PO DAILY 12/31/23 01/01/24 19:00 History glimepiride 4 mg tablet 2 mg PO QHS 12/31/23 12/31/23 History magnesium oxide 400 mg (241.3 mg 400 mg PO BID 02/11/24 Unknown History magnesium) tablet metformin 500 mg tablet 1,000 mg PO BID 02/11/24 Unknown History famotidine 20 mg tablet 20 mg PO BID 90 days #180 tabs 05/11/24 Unknown Rx ferrous sulfate 325 mg (65 mg 325 mg PO DAILY 05/15/24 Unknown History iron) tablet colestipol 1 gram tablet 1 g PO DAILY PRN Diarrhea #90 tabs 07/04/24 Unknown Rx furosemide 20 mg tablet (Lasix) 20 mg PO DAILY edema 1 month #30 07/10/24 Unknown Rx tabs spironolactone 50 mg tablet 50 mg PO DAILY 1 month #30 tabs 07/10/24 Unknown Rx 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 07/10/24 Unknown Rx #180 tabs Allergy/AdvReac Type Severity Reaction Status Date / Time diltiazem (From Cardizem) AdvReac Intermediate elevates Verified 07/19/24 10:17 glucose sitagliptin (From Januvia) AdvReac Intermediate CP/SOB Verified 07/19/24 10:17 pioglitazone (From Actos) AdvReac Swelling Verified 07/19/24 10:17 [id number]-[id number] Reductase AdvReac MAKES MY Verified 07/19/24 10:17 Inhibitor (Vifgmkd-Btr-Neu LEGS ACHE Reductase Inhibitor) Family History Father No problems noted. Surgical History History of bilateral cataract extraction (~08/2023) History of colonoscopy S/P ablation of atrial fibrillation History of cholecystectomy History of History of esophagogastroduodenoscopy (EGD) History of prior ablation treatment Social History Smoking Status: Never smoker alcohol intake: never substance use type: does not use caffeine: Yes what type of physical activity do you participate in: walking frequency: 3-4 times per week ROS ROS Narrative General: Denies fever/chills HENT: Denies headache currently EYES: Denies changes in vision Resp: Has had a chronic cough since COVID and shortness of breath on exertion Cardiac: Denies chest pain GI: Denies abdominal pain, hematemesis overnight, no changes in bowel movements, has had some burning after eating : Denies changes in urination Extremity: Denies swelling MSK: Denies weakness at present Neuro: Denies any numbness/tingling Heme: Denies any bleeding or bruising Skin: Denies rashes Psychiatric: No complaints voiced Vital Signs Vital Signs Vital Signs: 07/19/24 10:16 07/19/24 12:16 07/19/24 14:00 Temperature 98.3 F Temperature Source Temporal Pulse Rate 81 80 82 Respiratory Rate 14 16 16 Blood Pressure 138/68 H 127/65 H 94/46 L Blood Pressure Mean 91 85 62 Pulse Ox 98 98 98 Oxygen Delivery Method Room Air Room Air Room Air Weight Weight: 56.3 kg Body Mass Index (BMI) 23.4 Physical Exam Narrative General: Alert, oriented, no apparent distress HEENT: Atraumatic, normocephalic Eyes: Anicteric, normal conjunctiva, extraocular movements grossly intact Neck: Supple Respiratory: Clear to auscultation bilaterally, normal respiratory effort Cardiovascular: Regular rate and rhythm GI: Soft, nontender, nondistended Extremities: No edema Musculoskeletal: Moving all extremities Neuro: No overt focal neurological deficits Skin: No rashes appreciated Psych: Cooperative Results Lab / Micro Data 07/19/24 11:35 07/19/24 11:35 Labs: Laboratory Results - last 24 hr 07/19/24 11:35: WBC 6.0, RBC 3.01 L, Hgb 10.3 L, Hct 29.7 L, MCV 98.7, MCH 34.2 H, MCHC 34.7, RDW Std Deviation 46.1 H, RDW Coeff of Jimmy 13.0, Plt Count 118 L, MPV 9.5, Immature Gran % (Auto) 0.700, Neut % (Auto) 77.2 H, Lymph % (Auto) 11.9 L, [place] % (Auto) 7.4, Eos % (Auto) 2.3, Baso % (Auto) 0.5, Absolute Neuts (auto) 4.6, Absolute Lymphs (auto) 0.71 L, Nucleated RBC % 0, Sodium 133 L, Potassium 4.8, Chloride 105, Carbon Dioxide 20.0 L, Anion Gap 8, BUN 26 H, Creatinine 1.37 H, Estim Creat Clear Calc 29.66, Est GFR (MDRD) Af Amer 49 L, Est GFR (MDRD) Non-Af 41 L, BUN/Creatinine Ratio 19.0, Glucose 186 H, Calcium 11.8 H, Total Bilirubin 1.10 H, AST 34, ALT 29, Alkaline Phosphatase 152 H, Total Protein 7.7, Albumin 3.2, Globulin 4.5 H, Albumin/Globulin Ratio 0.7 L, Lipase 129 H 07/19/24 13:45: PT 16.0 H, INR 1.3, APTT 28.5 Assessment & Plan Assessment/Plan (1) Hematemesis: PLAN: Plan # Hematemesis, concern for upper GI bleed in setting of history of esophageal varices and previous gastric ulcers -Patient with several episodes of hematemesis overnight and known esophageal varices, no blood presently in stool -Has not had further episodes of bleeding since 3:30 AM and hemoglobin on presentation 10.3 with a baseline in the 9 range. Systolic blood pressure in 90s with maps in 60s but she endorses blood pressure runs low and had not been feeling lightheaded presently or before coming in today and patient overall appears stable at this time so it seems reasonable for patient to be placed in PCU -Started on Rocephin, octreotide, and PPI drip, will continue -GI notified in ED, consult placed -Given soft BP with unclear recent baseline we will place patient on bedrest until repeat H&H and further vital checks demonstrate stability -Clear liquid diet for now, n.p.o. at midnight as patient may require endoscopy -Trend H&H, patient typed and screened for 2 units in the event she does need transfusion -Do suspect first hemoglobin recheck will reveal lower hemoglobin in part due to volume resuscitation as patient seems somewhat volume depleted and has received IV fluids, will monitor for further bleeding and for any change in vitals for trend in hemoglobin for clinical decision making -Also will want to avoid hypertension which may worsen bleeding if this is variceal in nature -Of note patient had previous gastric ulcers on EGD 07/24/2021 and patient has not been able to take Protonix or famotidine so cannot rule out gastric ulcers as a cause of patient's upper GI bleeding # Hypercalcemia -Calcium 11.8 but does not seem to have any acute symptoms consistent with symptomatic hypercalcemia -Labs and clinically appears somewhat volume depleted -Patient being hydrated, will repeat BMP and but still remains significantly elevated this will determine need for further workup or management with vitamin D, Phos, PTH # Hyponatremia -Sodium 133 with a normal baseline -May be due to volume depletion, patient being hydrated and BMP will be rechecked -Can consider further workup with urine lytes and serum osmole's pending repeat after hydration # History of [place] cirrhosis and esophageal varices -Follows in the GI office, most recently saw Dr. Garcia 05/15/2024. Clinic note reviewed -Appears somewhat volume depleted, receiving IV fluids so we will hold spironolactone and Lasix -Also seems the patient has had difficulty with compliance with medications recently, will need to assess barriers to compliance when patient stable -Patient with no mental status changes that would lead I to suspect hyperammonemia, does not take lactulose at home, has regular bowel movements #Hypothyroidism -Continue Synthroid at home 25 mcg -TSH in the a.m. #GERD -Patient has not been able to tolerate pantoprazole on outpatient basis due to bloating and GI upset and famotidine has not been helpful so she has not been taking anything and has been having burning -May need to consider trying other PPI or alternative measure, currently only taking Tums as need # CKD stage III b -Appears to be at baseline -Avoid nephrotoxic agents -Daily BMPs #Type 2 diabetes mellitus -Glucose checks and sliding scale insulin #DVT ppx: SCDs due to concern for upper GI bleed Lauren Olmos MD Charges/Coding Visit Charges Inpatient E&M: 21667 Init Hosp L2
[2024-07-19 15:23] VITALS: BP 90/52; PULSE 83; RESP 16; TEMP 36.8; O2SAT 98
[2024-07-19] MEDS: 0.9% Normal Saline (1000mL) 1,000 ML 100 ML IV (15:59)
[2024-07-19 16:00] VITALS: BP 123/59; PULSE 72; RESP 12; TEMP 36.6; O2SAT 100; BMI 23.3
[2024-07-19 16:11] LABS: Hematocrit 28.9 % (37-47)
[2024-07-19 16:25] LABS: Anion Gap 8 (5-15); BUN 26 mg/dL (7-18); Calcium,Total 11.1 mg/dL (8.5-10.1); Chloride 108 mmol/L (98-107); EST Glomerular Filtration Rate 43 mL/min (>60); Est Glom Filt Rate - Afr Amer 52 mL/min (>60); Estimated Creatinine Clearance 31.25 ml/min; Glucose 162 mg/dL (74-106); Sodium Level 137 mmol/L (136-145)
[2024-07-19 18:04] LABS: Bedside Glucose 186 mg/dL (74-106)
[2024-07-19 22:00] VITALS: BP 98/51; PULSE 82; RESP 16; TEMP 36.6; O2SAT 98
[2024-07-19 22:12] LABS: Hematocrit 25.4 % (37-47); Hemoglobin 8.6 g/dL (12.0-15.0)
[2024-07-19] MEDS: Ursodiol 250 MG Tablet PO (23:48)
[2024-07-19] MEDS: Insulin Lispro 100 UNIT/ML INSULN.PEN SC (23:48)
[2024-07-19 23:58] LABS: Bedside Glucose 288 mg/dL (74-106)
[2024-07-20] VITALS (10 sets, daily range): BP systolic 93–123; BP diastolic 45–73; PULSE 70–84; RESP 12–18; TEMP 36.3–36.9; O2SAT 97–100; BMI 23.3
[2024-07-20 05:09] LABS: Absolute Lymphocyte Count 0.47 X10^3/uL (0.83-4.51); Absolute Neutrophil Count 1.8 X10^3/uL (2.0-7.7); Basophil# 0.01 X10^3/uL; Basophil% 0.4 % (0-1); Eosinophil# 0.07 X10^3/uL; Eosinophils% 2.6 % (0-5); Hematocrit 23.9 % (37-47); Hemoglobin 8.2 g/dL (12.0-15.0); Lymphocyte # 0.47 X10^3/ul (0.83-4.51); Lymphocyte % 17.7 % (19-41); Mean Corp Hgb Conc 34.3 g/dL (32-36); Mean Corpuscular Volume 99.2 fL (81-99); Mean Platelet Vol. 9.5 fl (6.2-12.0); Monocyte# 0.31 X10^3/uL; Monocyte% 11.7 % (0-10); NRBC Flagged by Analyzer 0 % (0-5); Neutrophil # 1.79 X10^3/uL (2.7-7.7); Neutrophil % 67.2 % (47-70); POSITIVE COUNT YES; POSITIVE DIFFERENTIAL YES; Platelet Count 64 K/mm3 (150-450); RBC Distribution Width CV 12.9 % (11.6-14.6); RBC Distribution Width SD 46.4 fl (35.1-43.9); Red Blood Count 2.41 M/mm3 (4.2-5.4); White Blood Count 2.7 K/mm3 (4.4-11.0)
[2024-07-20 05:19] LABS: International Normalized Ratio 1.3; Prothrombin Time (Protime)PT. 16.5 SECONDS (11.7-14.9)
[2024-07-20 05:21] LABS: Differential Indicated SCAN CRITERIA MET
[2024-07-20 05:41] LABS: ALB/GLOB Ratio 0.7 RATIO (0.9-2.4); AST(SGOT) 34 U/L (15-37); Alanine Aminotransfer ALT/SGPT 25 U/L (13-56); Albumin, Serum 2.4 g/dL (3.2-5.0); Alkaline Phosphatase 78 U/L (45-117); Anion Gap 6 (5-15); BUN 23 mg/dL (7-18); Calcium,Total 9.4 mg/dL (8.5-10.1); Chloride 109 mmol/L (98-107); Creatinine, Serum 1.28 mg/dL (0.55-1.02); EST Glomerular Filtration Rate 44 mL/min (>60); Est Glom Filt Rate - Afr Amer 53 mL/min (>60); Estimated Creatinine Clearance 31.74 ml/min; Globulin 3.5 g/dL (2.2-4.2); Glucose 245 mg/dL (74-106); Magnesium 1.3 mg/dL (1.6-2.6); Potassium 4.4 mmol/L (3.5-5.1); Protein, Total 5.9 g/dL (6.4-8.2); Sodium Level 136 mmol/L (136-145); Thyroid Stim Hormone (TSH) 0.729 uIU/mL (0.358-3.740)
--- NOTE | 2024-07-20 05:55 | EKG12_ITS ---
Test Reason : PRE OP Blood Pressure : / mmHG Vent. Rate : 071 BPM Atrial Rate : 071 BPM P-R Int : 118 ms QRS Dur : 076 ms QT Int : 402 ms P-R-T Axes : -08 -01 -13 degrees QTc Int : 436 ms Normal sinus rhythm Nonspecific T wave abnormality Abnormal ECG When compared with ECG of 24-JUL-2021 03:53, No significant change was found Confirmed by Taco Butts ([id number]), publication editor DAWN ZENG ([id number]) on 07/20/2024 1:24:17 PM Referred By: Confirmed By:Taco Butts
[2024-07-20 06:24] LABS: Differential Comment SCANNED
[2024-07-20] MEDS: Octreotide 0.5 MG in Dextrose 5%-Water (250mL Bag) 250 ML 12.5 MG CONT INF (06:30)
[2024-07-20] MEDS: Pantoprazole Sodium 80 MG in 0.9% Normal Saline (100mL Bag) 80 ML 10 MG CONT INF ×2 (06:30→18:58)
[2024-07-20 07:08] LABS: Bedside Glucose 210 mg/dL (74-106)
[2024-07-20] MEDS: Ceftriaxone 1 GM/50 ML BAG IV (08:43)
[2024-07-20 10:20] LABS: Hematocrit 26.5 % (37-47); Hemoglobin 9.1 g/dL (12.0-15.0)
--- NOTE | 2024-07-20 11:08 | PN.HOSP_ITS ---
Subjective Subjective Doing well, No issues overnight. No further signs of GI bleeding. Hemoglobin is stabilized at 9.1 Objective Data Objective Data Vital Signs: Vital Signs Temp Pulse Resp BP Pulse Ox O2 Del Method 98.1 F 76 15 111/50 L 99 Room Air 07/20/24 08:42 07/20/24 08:42 07/20/24 08:42 07/20/24 08:42 07/20/24 08:42 07/20/24 10:00 Oxygen Delivery Method Room Air Weight: 123 lb 7.342 oz Body Mass Index (BMI) 23.3 Intake & Output: Intake and Output for Last 24 Hours 07/19/24 07/20/24 07/21/24 03:59 03:59 03:59 Intake Total 2496 / 2496 378.58 / 378.58 Balance 2496 / 2496 378.58 / 378.58 Lab / Micro Data 07/20/24 10:04 07/20/24 04:35 Labs: Laboratory Results - last 24 hr 07/19/24 11:35: WBC 6.0, RBC 3.01 L, Hgb 10.3 L, Hct 29.7 L, MCV 98.7, MCH 34.2 H, MCHC 34.7, RDW Std Deviation 46.1 H, RDW Coeff of Jimmy 13.0, Plt Count 118 L, MPV 9.5, Immature Gran % (Auto) 0.700, Neut % (Auto) 77.2 H, Lymph % (Auto) 11.9 L, [place] % (Auto) 7.4, Eos % (Auto) 2.3, Baso % (Auto) 0.5, Absolute Neuts (auto) 4.6, Absolute Lymphs (auto) 0.71 L, Nucleated RBC % 0, Sodium 133 L, Potassium 4.8, Chloride 105, Carbon Dioxide 20.0 L, Anion Gap 8, BUN 26 H, Creatinine 1.37 H, Estim Creat Clear Calc 29.66, Est GFR (MDRD) Af Amer 49 L, Est GFR (MDRD) Non-Af 41 L, BUN/Creatinine Ratio 19.0, Glucose 186 H, Calcium 11.8 H, Total Bilirubin 1.10 H, AST 34, ALT 29, Alkaline Phosphatase 152 H, Total Protein 7.7, Albumin 3.2, Globulin 4.5 H, Albumin/Globulin Ratio 0.7 L, Lipase 129 H 07/19/24 13:45: PT 16.0 H, INR 1.3, APTT 28.5, Blood Type O POSITIVE, Antibody Screen NEGATIVE, Crossmatch See Detail 07/19/24 16:00: Hgb 10.0 L, Hct 28.9 L, Sodium 137, Potassium 5.0, Chloride 108 H, Carbon Dioxide 21.0, Anion Gap 8, BUN 26 H, Creatinine 1.30 H, Estim Creat Clear Calc 31.25, Est GFR (MDRD) Af Amer 52 L, Est GFR (MDRD) Non-Af 43 L, BUN/Creatinine Ratio 20.0, Glucose 162 H, Calcium 11.1 H 07/19/24 17:46: POC Glucose 186 H 07/19/24 22:05: Hgb 8.6 L, Hct 25.4 L 07/19/24 23:05: POC Glucose 288 H 07/20/24 04:35: WBC 2.7 L, RBC 2.41 L, Hgb 8.2 L, Hct 23.9 L, MCV 99.2 H, MCH 34.0 H, MCHC 34.3, RDW Std Deviation 46.4 H, RDW Coeff of Jimmy 12.9, Plt Count 64 L, MPV 9.5, Immature Gran % (Auto) 0.400, Neut % (Auto) 67.2, Lymph % (Auto) 17.7 L, [place] % (Auto) 11.7 H, Eos % (Auto) 2.6, Baso % (Auto) 0.4, Absolute Neuts (auto) 1.8 L, Absolute Lymphs (auto) 0.47 L, Nucleated RBC % 0, Differential Comment SCANNED, PT 16.5 H, INR 1.3, Sodium 136, Potassium 4.4, C hloride 109 H, Carbon Dioxide 21.0, Anion Gap 6, BUN 23 H, Creatinine 1.28 H, Estim Creat Clear Calc 31.74, Est GFR (MDRD) Af Amer 53 L, Est GFR (MDRD) Non-Af 44 L, BUN/Creatinine Ratio 18.0, Glucose 245 H, Calcium 9.4, Magnesium 1.3 L, Total Bilirubin 0.80, AST 34, ALT 25, Alkaline Phosphatase 78, Total Protein 5.9 L, Albumin 2.4 L, Globulin 3.5, Albumin/Globulin Ratio 0.7 L, TSH 0.729 07/20/24 06:22: POC Glucose 210 H 07/20/24 10:04: Hgb 9.1 L, Hct 26.5 L Physical Exam Narrative General: Alert, Oriented x3, Cooperative, No apparent distress HEENT: Atraumatic, PERRLA, EOMI, Normocephalic Oral: Moist Mucosa Neck: Supple, No JVD Lungs: Clear to auscultation, Normal air movement, No rhonchi, No wheeze, No rales Cardiovascular: Regular rate, Regular Rhythm, Normal S1, Normal S2, No murmurs Abdomen: Soft, Non Tender, Non-Distended, No Hepato-splenomegaly Extremities: No edema, Capillary Refill Less than 3 Seconds Skin: No rashes, No breakdown Musculoskeletal: No Tenderness to Palpation of Joints or Extremities Neurological: No focal neurological deficits, Motor Exam 5/5 strength throughout, Sensory exam intact to light touch and pain Psych/Mental Status: Normal Affect, Appropriate Assessment & Plan Assessment/Plan (1) Hematemesis: PLAN: Plan 1. Hematemesis in the setting of esophageal varices due to SANCHEZ and previous gastric ulcers/hypercalcemia ? EGD today, appreciate GIs assistance ? Hemoglobin is stable at 9.1 on repeat ? Currently on Rocephin, octreotide, and a PPI drip ? Calcium is down to 9.4 after hydration, recommend outpatient monitoring and follow-up ? Continue with Lasix and Aldactone ? She does have a history of GERD at baseline and struggles to take PPI secondary to GI side effects 2. Essential HTN/HLD ? Continue with Zetia ? Continue with her home blood pressure medications ? Will monitor make adjustments as necessary 3. DM2/CKD 3B ? Sliding scale insulin ? Hold her home medications ? Will monitor and make adjustments as necessary ? Accu-Cheks ACHS ? Renal function appears to be at baseline 4. Hypothyroidism ? Stable ? Continue with Synthroid DVT: SCDs Charges/Coding Visit Charges Inpatient E&M: 24282 Subs Hosp L2
--- NOTE | 2024-07-20 11:20 | CASEMGMT ---
RN CM Face to Face with patient for initial transition planning/care coordination assessment. RN CM introduced self and role at [facility]. Patient lying in bed, alert and oriented, at bedside. Patient willing to participate in assessment and is able to answer all questions appropriately. Care providers, pharmacy, and demographics verified. Strata: 2 PCP: Judith Specialists: Germain, mammographer; Friend, GI Preferred Pharmacy: [facility] Insurance: [facility], [facility] Prescription Benefit: yes Living Will/HPOA: yes, Dandre Morse LNOK: , son Living Arrangements: Patient lives with in a 2 story home. Patient is independent and able to ambulate stairs Transportation: self, DME/HHC: Patient has raised toilet at home. Patient wishes to discharge home, denies need for home health at this time. Patient states she has no further needs or concerns at this time. CM to follow for discharge planning needs that may arise. Disposition Plan: Patient to discharge home with family support and follow-up plans in place. Ana Laura BULLARD, RN, CM
[2024-07-20] MEDS: Insulin Lispro 100 UNIT/ML INSULN.PEN SC ×3 (12:06→22:52)
[2024-07-20 12:47] LABS: Bedside Glucose 216 mg/dL (74-106)
--- NOTE | 2024-07-20 15:24 | CHAPLAIN ---
Type of Pastoral Visit _x__ Initial Visit ___ Follow-up Visit ___ On-call Visit ___ General Patient Visit ___ Spiritual Assessment ___ Family Conference ___ Bereavement ___ Rapid Response ___ Code Blue ___ Other (describe below) Pastoral Care Referral From _x__ Patient ___ Family ___ Nurse ___ Physician ___ Maintenance Inspector ___ Flag Signaler ___ Other (describe below) Sacrament/Intervention _x__ Active listening ___ Anointing ___ Faith ___ Bereavement ___ Communion ___ Thuy exploration ___ ___ Life review _x__ Prayer ___ Reconciliation ___ Sacrament of Sick ___ Supportive presence ___ Wedding ___ Other (describe below) Pastoral Comments patient is resting in bed but awake; spouse is at bedside; both give a few details about reason for admission; pt acknowledges that this has been going on now for awhile; pt states that she is doing okay emotionally and that she has prayer support already from her uatsdin; pt does not seek further support but continues to interact with the economics analyst and then welcomes prayer
[2024-07-20] MEDS: 0.9% Normal Saline (1000mL) 1,000 ML 15 ML IV (15:46)
--- NOTE | 2024-07-20 16:46 | PCM.PRE.AN2 ---
ASA Classification* ASA Classification ASA Classification: 3 Assessment & Plan Anesthesia* Anesthesia Assessment Anesthesia Assessment: Discussed sedation and/or anesthesia options, risks, benefits, and alternatives with patient/parents/legal guardian/POA. Questions invited. The patient/parents/legal guardian/POA seems to understand and agrees to proceed with anesthesia plan. Reviewed the physical assessment, medical history, allergy history and patient home medications list prior to surgery/procedure/anesthetic and documented any changes. Performed airway and anesthesia risk assessments. Anesthesia Type Anesthesia Type: MAC Anesthesia Focused Assessment* Temperature: 97.4 F Pulse Rate: 72 Blood Pressure: 123/46 Respiratory Rate: 18 Pulse Ox: 99 Airway Assessment Mouth opens: >3 cm Mallampati Score: II Focused Labs Anesthesia Preop lab: CBC WBC 2.7 K/mm3 (4.4-11.0) L 07/20/24 04:35 RBC 2.41 M/mm3 (4.2-5.4) L 07/20/24 04:35 Hgb 9.1 g/dL (12.0-15.0) L 07/20/24 10:04 Hct 26.5 % (37-47) L 07/20/24 10:04 Plt Count 64 K/mm3 (150-450) L 07/20/24 04:35 CHEMISTRY Potassium 4.4 mmol/L (3.5-5.1) 07/20/24 04:35 Sodium 136 mmol/L (136-145) 07/20/24 04:35 Magnesium 1.3 mg/dL (1.6-2.6) L 07/20/24 04:35 Phosphorus 2.7 mg/dL (2.5-4.9) 02/19/24 10:37 BUN 23 mg/dL (7-18) H 07/20/24 04:35 Creatinine 1.28 mg/dL (0.55-1.02) H 07/20/24 04:35 Glucose 245 mg/dL (74-106) H 07/20/24 04:35 POC Glucose 216 mg/dL (74-106) H 07/20/24 12:03 TSH 0.729 uIU/mL (0.358-3.740) 07/20/24 04:35 COAG PT 16.5 SECONDS (11.7-14.9) H 07/20/24 04:35 Pre-Assessment Diagnosis/Proposed Procedure Planned Operative Procedure(s): EGD Anesthesia History Anesthesia History - underwriter solicitation director: Anesthesia History - underwriter solicitation director Hx Hospitalization No 12/31/23 12:41 Any Problems With Anesthesia No 07/20/24 02:53 Cholinesterase deficiency No 07/20/24 02:53 You/Your Family Experience No 07/20/24 02:53 fever (hyperthermia) with Relationship Recent Exposure to Contagious Yes: Covid on 07/03/2024 07/20/24 02:53 Disease Does patient have nerve No 07/20/24 02:53 stimulator Patient instructed to have device shut off --Does patient have Pacemaker No 07/20/24 02:53 or ICD? When Was Last Pacemaker Check QUESTION #4 FULL TEXT: You/Your Family Experience fever (hyperthermia) with Anesthesia Last Oral Intake Last Oral intake: Last Oral Intake NPO since 00:00 07/20/24 02:53 Meds taken in AM with sips of water? Meds patient instructed to take am of surgery PONV PONV - underwriter solicitation director: PONV - underwriter solicitation director Female HX of Motion Sickness HX of N/V After Surgery Non-Smoker Duration of Surgery greater than 60 minutes Number of Risk Factors PONV Score Height & Weight Height & Weight: Anesthesia: Height & Weight Height 5 ft 1 in 07/20/24 11:02 Weight: 56 kg 07/20/24 11:02 Body Mass Index (BMI) 23.3 07/20/24 02:53 Respiratory Assessment Respiratory Assessment - underwriter solicitation director: Respiratory Tract Infection Hx - underwriter solicitation director Hx Respiratory Tract Infection No 07/20/24 02:53 STOP Sleep Apnea STOP Sleep Apnea - underwriter solicitation director: STOP Sleep Apnea - underwriter solicitation director Hx Hypertension No 07/19/24 16:00 Hx Sleep Apnea No 07/19/24 16:00 CPAP BIPAP Do you snore loudly (louder No 07/19/24 16:00 than talking or can be heard Do you often feel tired/ No 07/19/24 16:00 fatigued/ sleepy during daytime? Has anyone observed you stop No 07/19/24 16:00 breathing during sleep? STOP Results Negative 07/19/24 16:00 QUESTION #5 FULL TEXT : Do you snore loudly (louder than talking or can be heard through closed doors)? Tobacco Use History Tobacco Use History - underwriter solicitation director: Tobacco Use History - underwriter solicitation director Tobacco Use Smoking Status Never smoker 07/19/24 16:00 Hx Tobacco Use No 07/19/24 16:00 Years Smoking Packs Smoked per Day Smoking Cessation Date was within the last 15 years Hx Smoking Cessation Date Hx Smoking Cessation Counseling Hematologic Medial History Hematologic Hx - underwriter solicitation director: Hematologic Medical Hx - campaign consultant Hx of Blood Transfusion Yes 07/19/24 16:00 Hx of Transfusion in last 3 No 07/19/24 16:00 Months Date of Last Transfusion (if within last 3 months) Ever experience any problems No 07/19/24 16:00 with transfusion(s)? Specify any problems Hx of Preganancy in last 3 N/A 07/19/24 16:00 Months Nurse Filling Out Transfusion NBILANCIN 07/19/24 16:00 & Questions: Date: 07/19/24 07/19/24 16:00 Time: 16:11 07/19/24 16:00 Patient unable to answer at this time (ie. confused, unrespo /Reproduction History /Reproductive History - underwriter solicitation director: /Reproductive Hx- underwriter solicitation director Hx Now No 07/20/24 02:53 Gestational Age (in weeks): EDC: Hx Hx Para Hx Section SAB No 12/31/23 12:41 Active Medications Active Medications: Current Medications Generic Name Dose Route Start Last Admin Trade Name Freq PRN Reason Stop Dose Admin Acetaminophen 650 mg 07/19/24 15:35 Acetaminophen 325 Mg Tablet PO Q6H PRN PRN Pain 1-10 Or Fever >100.7 Albuterol Sulfate 2.5 mg 07/19/24 15:35 Albuterol 2.5 Mg/3 Ml Vial.Neb. INHALATION Q2H PRN PRN SOB &/OR WHEEZING Ezetimibe 10 mg 07/20/24 10:00 07/20/24 08:10 Ezetimibe 10 Mg Tablet PO Not Given DAILY MARCUS Glucagon 1 mg 07/19/24 15:35 Glucagon 1 Mg/Ml Syringe IM X1 PRN Hypoglycemia Protocol Pantoprazole Sodium 80 mg/ 100 mls @ 10 mls/hr 07/19/24 11:05 07/20/24 15:47 Sodium Chloride CONT INF Infused Q10H MARCUS Infusion Octreotide Acetate 0.5 mg/ 251 mls @ 12.5 mls/hr 07/19/24 11:05 07/20/24 06:30 Dextrose CONT INF 12.5 mls/hr .Q20H5M MARCUS Administration Ceftriaxone Sodium 1 gm in 50 mls @ 100 mls/hr 07/20/24 10:00 07/20/24 09:23 Rocephin IV 07/27/24 10:01 Infused Q24 MARCUS Infusion Dextrose 250 mls @ 0 mls/hr 07/19/24 15:35 Dextrose 10%-Water IV .Q0M PRN HYPOGLYCEMIA Protocol As Directed Sodium Chloride 250 mls @ 15 mls/hr 07/19/24 16:16 IV .[id number] PRN Additional IVPB Infusion Sodium Chloride 250 mls @ 15 mls/hr 07/19/24 16:16 IV .[id number] PRN Saline Flush Sodium Chloride 1,000 mls @ 15 mls/hr 07/20/24 15:35 07/20/24 15:46 IV 15 mls/hr .Q48H MARCUS Administration Insulin Human Lispro 0 unit 07/19/24 18:00 07/20/24 12:06 Insulin Lispro 100 Unit/Ml Insuln.Pen SC 2 u Q6 MARCUS Administration Protocol Levothyroxine Sodium 25 mcg 07/20/24 06:00 07/20/24 05:33 Levothyroxine 25 Mcg Tablet PO Not Given DAILY@0600 MARCUS Melatonin 3 mg 07/19/24 15:35 Melatonin 3 Mg Tablet PO QHS PRN PRN INSOMNIA Ondansetron HCl 4 mg 07/19/24 15:35 Ondansetron 4 Mg/2 Ml Vial IV Q8H PRN PRN NAUSEA/VOMITING Senna/Docusate Sodium 2 tablet 07/19/24 15:35 Senna/Docusate Sodium 1 Tablet PO BID PRN PRN Constipation Sodium Chloride 10 - 40 ml 07/19/24 16:16 0.9% Saline Lock 10 Ml Syringe IV UD PRN SALINE FLUSH Ursodiol 250 mg 07/19/24 22:00 07/20/24 08:10 Ursodiol 250 Mg Tablet PO Not Given BID MARCUS PFSH Medical History Cataract (lens) fragments in eye following cataract surgery, bilateral Chronic kidney disease (CKD) Difficult intravenous access Wears glasses History of GI bleed History of ulceration Non-smoker Shortness of breath on exertion History of echocardiogram Cardiology follow-up encounter History of rheumatic fever Esophageal varices Renal insufficiency Vitamin B 12 deficiency Pulmonary HTN Rheumatic mitral insufficiency Hyperlipidemia Essential hypertension Acquired thrombocytopenia Diarrhea Anemia Bleeding tendency Post-menopausal Restless legs History of stress test Irregular heartbeat Thrombocytopenia Cirrhosis Acute on chronic blood loss anemia Diabetes Atrial fibrillation Home Medications ?Medication ?Instructions ?Recorded ?Last Taken ?Type cholecalciferol (vitamin D3) 25 25 mcg PO DAILY supplement 12/12/21 01/01/24 08:30 History mcg (1,000 unit) tablet (Vitamin D3) glimepiride 4 mg tablet 4 mg PO DAILY diabetes 12/12/22 01/01/24 16:00 History carvedilol 6.25 mg tablet 6.25 mg PO BID BP #180 tabs 11/11/23 07/18/24 Rx ezetimibe 10 mg tablet 10 mg PO DAILY Cholesterol 12/31/23 01/01/24 19:00 History glimepiride 4 mg tablet 2 mg PO QHS diabetes 12/31/23 12/31/23 History magnesium oxide 400 mg (241.3 mg 400 mg PO BID supplement 02/11/24 Unknown History magnesium) tablet metformin 500 mg tablet 1,000 mg PO BID diabetes 02/11/24 Unknown History famotidine 20 mg tablet 20 mg PO BID Stomach acid 90 days 05/11/24 Unknown Rx #180 tabs ferrous sulfate 325 mg (65 mg 325 mg PO DAILY supplement 05/15/24 Unknown History iron) tablet colestipol 1 gram tablet 1 g PO DAILY PRN Diarrhea #90 tabs 07/04/24 Unknown Rx furosemide 20 mg tablet (Lasix) 20 mg PO DAILY edema 1 month #30 07/10/24 Unknown Rx tabs spironolactone 50 mg tablet 50 mg PO DAILY BP 1 month #30 tabs 07/10/24 Unknown Rx 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 07/10/24 Unknown Rx #180 tabs Allergy/AdvReac Type Severity Reaction Status Date / Time diltiazem (From Cardizem) AdvReac Intermediate elevates Verified 07/20/24 15:44 glucose sitagliptin (From Januvia) AdvReac Intermediate CP/SOB Verified 07/20/24 15:44 pioglitazone (From Actos) AdvReac Swelling Verified 07/20/24 15:44 [id number]-GlO Reductase AdvReac MAKES MY Verified 07/20/24 15:44 Inhibitor ([id number] LEGS ACHE Reductase Inhibitor) Family History Father No problems noted. Surgical History History of bilateral cataract extraction (~08/2023) History of colonoscopy S/P ablation of atrial fibrillation History of cholecystectomy History of History of esophagogastroduodenoscopy (EGD) History of prior ablation treatment Social History Smoking Status: Never smoker alcohol intake: never substance use type: does not use caffeine: Yes what type of physical activity do you participate in: walking frequency: 3-4 times per week Review of Systems (Anesthesia) ROS Narrative System reviewed and no additional complaints, except as documented.
--- NOTE | 2024-07-20 17:02 | EX.PCM.CON.G ---
HPI Consult Data Date of Consult: 07/20/24 HPI Narrative Reason for Consultation: Hematemesis HPI Narrative: ROBBIN STILL, is a 68-year-old female history of SANCHEZ cirrhosis, esophageal varices, pulmonary hypertension, CKD who presented to [facility] ED 07/19/2024 with chief complaint of vomiting blood. She woke up at 3 AM with hematemesis and vomited 3 total times with a large amount of red blood each time. The patient given Protonix, octreotide, Rocephin, IV fluids. She endorses several episodes of hematemesis overnight with her most recent episode at 3:30 AM and did not have any since that time. She is not having any abdominal pain at present and no blood per rectum. She reports she was diagnosed with COVID on the sixth of this month and since then has not had a great appetite and has been having difficulty taking her medications and she will a lot of burning after she takes her medicine and over the last week she has not been able to take some of them given this burning feeling and not being able to identify which medication is causing it. She has not been taking Protonix due to diarrhea and has not been taking famotidine either. Additionally reports that she was just in [place] hiking yesterday and was short of breath on exertion and feeling very weak, still will get shortness of breath on exertion but not feeling short of breath at this time denies any present abdominal pain, no blood in stool. Has had a chronic cough since COVID with overall fairly poor p.o. intake. [facility] Medical History Cataract (lens) fragments in eye following cataract surgery, bilateral Chronic kidney disease (CKD) Difficult intravenous access Wears glasses History of GI bleed History of ulceration Non-smoker Shortness of breath on exertion History of echocardiogram Cardiology follow-up encounter History of rheumatic fever Esophageal varices Renal insufficiency Vitamin B 12 deficiency Pulmonary HTN Rheumatic mitral insufficiency Hyperlipidemia Essential hypertension Acquired thrombocytopenia Diarrhea Anemia Bleeding tendency Post-menopausal Restless legs History of stress test Irregular heartbeat Thrombocytopenia Cirrhosis Acute on chronic blood loss anemia Diabetes Atrial fibrillation Home Medications ?Medication ?Instructions ?Recorded ?Last Taken ?Type cholecalciferol (vitamin D3) 25 25 mcg PO DAILY supplement 12/12/21 01/01/24 08:30 History mcg (1,000 unit) tablet (Vitamin D3) glimepiride 4 mg tablet 4 mg PO DAILY diabetes 12/12/22 01/01/24 16:00 History carvedilol 6.25 mg tablet 6.25 mg PO BID BP #180 tabs 11/11/23 07/18/24 Rx ezetimibe 10 mg tablet 10 mg PO DAILY Cholesterol 12/31/23 01/01/24 19:00 History glimepiride 4 mg tablet 2 mg PO QHS diabetes 12/31/23 12/31/23 History magnesium oxide 400 mg (241.3 mg 400 mg PO BID supplement 02/11/24 Unknown History magnesium) tablet metformin 500 mg tablet 1,000 mg PO BID diabetes 02/11/24 Unknown History famotidine 20 mg tablet 20 mg PO BID Stomach acid 90 days 05/11/24 Unknown Rx #180 tabs ferrous sulfate 325 mg (65 mg 325 mg PO DAILY supplement 05/15/24 Unknown History iron) tablet colestipol 1 gram tablet 1 g PO DAILY PRN Diarrhea #90 tabs 07/04/24 Unknown Rx furosemide 20 mg tablet (Lasix) 20 mg PO DAILY edema 1 month #30 07/10/24 Unknown Rx tabs spironolactone 50 mg tablet 50 mg PO DAILY BP 1 month #30 tabs 07/10/24 Unknown Rx 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 07/10/24 Unknown Rx #180 tabs Allergy/AdvReac Type Severity Reaction Status Date / Time diltiazem (From Cardizem) AdvReac Intermediate elevates Verified 07/20/24 15:44 glucose sitagliptin (From Januvia) AdvReac Intermediate CP/SOB Verified 07/20/24 15:44 pioglitazone (From Actos) AdvReac Swelling Verified 07/20/24 15:44 [id number] Reductase AdvReac MAKES MY Verified 07/20/24 15:44 Inhibitor (Nblawbb-Osf-Yhe LEGS ACHE Reductase Inhibitor) Family History Father No problems noted. Surgical History History of bilateral cataract extraction (~08/2023) History of colonoscopy S/P ablation of atrial fibrillation History of cholecystectomy History of History of esophagogastroduodenoscopy (EGD) History of prior ablation treatment Social History Smoking Status: Never smoker alcohol intake: never substance use type: does not use caffeine: Yes what type of physical activity do you participate in: walking frequency: 3-4 times per week ROS ROS Narrative General: Denies fever/chills HENT: Denies headache currently EYES: Denies changes in vision Resp: Has had a chronic cough since COVID and shortness of breath on exertion Cardiac: Denies chest pain GI: Denies abdominal pain, hematemesis overnight, no changes in bowel movements, has had some burning after eating : Denies changes in urination Extremity: Denies swelling MSK: Denies weakness at present Neuro: Denies any numbness/tingling Heme: Denies any bleeding or bruising Skin: Denies rashes Psychiatric: No complaints voiced Physical Exam Narrative General: Alert, Oriented x3, Cooperative, No apparent distress HEENT: Atraumatic, PERRLA, EOMI, Normocephalic Oral: Moist Mucosa Neck: Supple, No JVD Lungs: Clear to auscultation, Normal air movement, No rhonchi, No wheeze, No rales Cardiovascular: Regular rate, Regular Rhythm, Normal S1, Normal S2, No murmurs Abdomen: Soft, Non Tender, Non-Distended, No Hepato-splenomegaly Extremities: No edema, Capillary Refill Less than 3 Seconds Skin: No rashes, No breakdown Musculoskeletal: No Tenderness to Palpation of Joints or Extremities Neurological: No focal neurological deficits, Motor Exam 5/5 strength throughout, Sensory exam intact to light touch and pain Psych/Mental Status: Normal Affect, Appropriate Medical Records Data Medical Nutrition Assessment Dietitian: Malnutrition Criteria Met Start: 07/20/24 15:37 Freq: Status: Active Protocol: Document 07/20/24 15:37 SB (Rec: 07/20/24 15:37 SB [id number]) Nutrition Malnutrition Evidence of Malnutrition Exists Yes Malnutrition (severe): Acute Illness/Injury Evidenced By Suboptimal Energy Intake ( Severe),Weight Loss (Severe), Physical Changes (Moderate) Clinical Problem Acute Disease or Injury Related Malnutrition Etiology severe related to inadequate oral intake Signs/Symptoms as evidenced by 10.6% weight loss x 2 months, PO meeting < 50% of estimated energy needs x 23 days, moderate muscle wasting in clavicle region, and NPO status. Status Active Problem Recommendation Dietitian Recommendations/Changes Recommend Consistent carbohydrate diet, as diet is advanced. Recommend 120ml strawberry glucerna 4x daily with medpass , as diet is advanced. Will monitor weight, as available. Reviewed and approved by Monie Fernandez RD, LD. Lab / Micro Data 07/20/24 10:04 07/20/24 04:35 Labs: Laboratory Results - last 24 hr 07/19/24 17:46: POC Glucose 186 H 07/19/24 22:05: Hgb 8.6 L, Hct 25.4 L 07/19/24 23:05: POC Glucose 288 H 07/20/24 04:35: WBC 2.7 L, RBC 2.41 L, Hgb 8.2 L, Hct 23.9 L, MCV 99.2 H, MCH 34.0 H, MCHC 34.3, RDW Std Deviation 46.4 H, RDW Coeff of Jimmy 12.9, Plt Count 64 L, MPV 9.5, Immature Gran % (Auto) 0.400, Neut % (Auto) 67.2, Lymph % (Auto) 17.7 L, Sampson % (Auto) 11.7 H, Eos % (Auto) 2.6, Baso % (Auto) 0.4, Absolute Neuts (auto) 1.8 L, Absolute Lymphs (auto) 0.47 L, Nucleated RBC % 0, Differential Comment SCANNED, PT 16.5 H, INR 1.3, Sodium 136, Potassium 4.4, Chloride 109 H, Carbon Dioxide 21.0, Anion Gap 6, BUN 23 H, Creatinine 1.28 H, Estim Creat Clear Calc 31.74, Est GFR (MDRD) Af Amer 53 L, Est GFR (MDRD) Non-Af 44 L, BUN/Creatinine Ratio 18.0, Glucose 245 H, Calcium 9.4, Magnesium 1.3 L, Total Bilirubin 0.80, AST 34, ALT 25, Alkaline Phosphatase 78, Total Protein 5.9 L, Albumin 2.4 L, Globulin 3.5, Albumin/Globulin Ratio 0.7 L, TSH 0.729 07/20/24 06:22: POC Glucose 210 H 07/20/24 10:04: Hgb 9.1 L, Hct 26.5 L 07/20/24 12:03: POC Glucose 216 H Assessment & Plan Assessment/Plan (1) Hematemesis: PLAN: Plan 68-year-old with past medical send SANCHEZ cirrhosis complicated by esophageal varices status post banding who presents with multiple episodes of coughing and vomiting with development of hematemesis. Hematemesis, concern for upper GI bleed in setting of history of esophageal varices and previous gastric ulcers -Patient with several episodes of hematemesis overnight and known esophageal varices, no blood presently in stool -She has not had further episodes of bleeding since 3:30 AM and hemoglobin on presentation 10.3 with a baseline in the 9 range. Systolic blood pressure in 90s with maps in 60s but she endorses blood pressure runs low and had not been feeling lightheaded presently or before coming in today and patient overall appears stable at this time so it seems reasonable for patient to be placed in PCU -She was started on Rocephin, octreotide, and PPI drip, will continue -She will need to undergo an upper endoscopy for evaluation of upper GI tract. She was explained alternatives, risk, benefits include not withstanding bleeding, infection, sepsis, perforation, need for emergent surgery . She will have an ASA of 3. Charges/Coding Visit Charges Inpatient E&M: 55037 Init Hosp L3
--- NOTE | 2024-07-20 17:07 | PCM.POST.ANE ---
Anesthesia: Postop Eval I Current Vital Signs Temperature: 98.4 F Pulse Rate: 84 Blood Pressure: 110/51 Respiratory Rate: 16 Pulse Ox: 98 Oxygen Delivery Method: Room Air Assessment Airway patent: Yes Spontaneous unlabored respirations: Yes Mental status: Asleep nausea: No Vomiting: No Anesthesia Complication: No Fluid Hydration Crystalloid volume administer (ml): 400 Total IV fluid infused: 400 Progress Note Anesthesia document: Postop Eval 1 completed: Yes
--- NOTE | 2024-07-20 17:11 | OP.CCLET_ITS ---
07/20/2024 Billy Wong MD Re : Upper GI endoscopy procedure for Jacqueline Morse Dear Dr. Wong This procedure was performed on Saturday, July 20, 2024. My impressions and recommendations are as follows: Impressions : - Cari-Jackson tear. - Small (< 5 mm) esophageal varices. - Small hiatal hernia. - Portal hypertensive gastropathy. - Non-bleeding duodenal ulcer with no stigmata of bleeding. - No specimens collected. Recommendations : - Return patient [facility]. - Full liquid diet today. - Continue present medications. My findings are described in the full procedure note, which is enclosed. If I can be of further assistance, please feel free to contact me at . Sincerely, Minh Martinez, 07/20/2024 5:10:21 PM This report has been signed electronically.
--- NOTE | 2024-07-20 17:11 | OP.EGD_ITS ---
Patient Name: Jacqueline Morse Procedure Date: 07/20/2024 4:39 PM Date of : 1955 Age: 68 Procedure: Upper GI endoscopy Indications: Hematemesis Providers: Minh Martinez DO Medicines: Monitored Anesthesia Care Patient Profile: This is a 68 year old female. Refer to note in patient chart for documentation of history and physical. Patient has symptoms of acute vomiting. Complications: No immediate complications. Procedure: Pre-Anesthesia Assessment: - Prior to the procedure, a History and Physical was performed, and patient medications and allergies were reviewed. The patient is competent. The risks and benefits of the procedure and the sedation options and risks were discussed with the patient. All questions were answered and informed consent was obtained. Patient identification and proposed procedure were verified by the physician in the pre-procedure area. Mental Status Examination: alert and oriented. Airway Examination: normal oropharyngeal airway and neck mobility. Respiratory Examination: clear to auscultation. CV Examination: normal. Prophylactic Antibiotics: The patient does not require prophylactic antibiotics. Prior Anticoagulants: The patient has taken no anticoagulant or antiplatelet agents. ASA Grade Assessment: III - A patient with severe systemic disease. After reviewing the risks and benefits, the patient was deemed in satisfactory condition to undergo the procedure. The anesthesia plan was to use monitored anesthesia care (MAC). Immediately prior to administration of medications, the patient was re-assessed for adequacy to receive sedatives. The heart rate, respiratory rate, oxygen saturations, blood pressure, adequacy of pulmonary ventilation, and response to care were monitored throughout the procedure. The physical status of the patient was re-assessed after the procedure. After obtaining informed consent, the endoscope was passed under direct vision. Throughout the procedure, the patient's blood pressure, pulse, and oxygen saturations were monitored continuously. The Endoscope was introduced through the mouth, and advanced to the second part of duodenum. The upper GI endoscopy was accomplished without difficulty. The patient tolerated the procedure well. Scope In: 4:55:13 PM Scope Out: 4:58:46 PM Total Procedure Duration Time 0 hours 3 minutes 33 seconds Findings: A 5 mm non-bleeding Cari-Jackson tear with stigmata of recent bleeding was found. Small (< 5 mm) varices were found in the lower third of the esophagus. They were 5 mm in largest diameter. A small hiatal hernia was present. Moderate portal hypertensive gastropathy was found in the entire examined stomach. One non-bleeding linear duodenal ulcer with no stigmata of bleeding was found in the duodenal bulb. Impression: - Cari-Jackson tear. - Small (< 5 mm) esophageal varices. - Small hiatal hernia. - Portal hypertensive gastropathy. - Non-bleeding duodenal ulcer with no stigmata of bleeding. - No specimens collected. Recommendation: - Return patient to [facility] for [facility]. - Full liquid diet today. - Continue present medications. Procedure Code(s): --- Professional --- 36110, Esophagogastroduodenoscopy, flexible, transoral; diagnostic, including collection of specimen(s) by brushing or washing, when performed (separate procedure) CPT copyright 2021 [employer]. All rights reserved. The codes documented in this report are preliminary and upon sinter press operator review may be revised to meet current compliance requirements. Minh Martinez DO 07/20/2024 5:10:21 PM This report has been signed electronically. Number of Addenda: 0 Note Initiated On: 07/20/2024 4:39 PM
--- NOTE | 2024-07-20 17:35 | PCM.POSTANE2 ---
Anesthesia Postop Eval I Sum Postop Eval Completion status Anesthesia document: Postop Eval 1 completed: Yes Anesthesia Postop Eval I Summary Anesthesia Postop Eval I Summary: Anesthesia Postop Eval I: Assessment Summary Airway patent Yes 07/20/24 17:08 [email or web address] Spontaneous unlabored Yes 07/20/24 17:08 [email or web address] respirations Mental status Asleep 07/20/24 17:08 [email or web address] nausea No 07/20/24 17:08 [email or web address] Vomiting No 07/20/24 17:08 [email or web address] Anesthesia Postop Eval I: Fluid Summary Crystalloid volume administer 400 07/20/24 17:08 [email or web address] (ml) Colloids volume administered ( ml) Blood Product volume administered (ml) Total IV fluid infused 400 07/20/24 17:08 [email or web address] Anesthesia Postop Eval I: Summary Notes Anesthesia Complication No 07/20/24 17:08 [email or web address] Anesthesia Complication Comment: Post-operative progress note Anesthesia: Postop Eval II Evaluation Mental status: Awake Pain Level: 0 nausea: No Vomiting: No
[2024-07-20 18:43] LABS: Bedside Glucose 179 mg/dL (74-106)
[2024-07-20] MEDS: Ursodiol 250 MG Tablet PO (20:53)
[2024-07-20 23:16] LABS: Bedside Glucose 280 mg/dL (74-106)
[2024-07-21] MEDS: Octreotide 0.5 MG in Dextrose 5%-Water (250mL Bag) 250 ML 12.5 MG CONT INF (01:22)
[2024-07-21 03:15] VITALS: BP 96/52; PULSE 72; RESP 16; TEMP 36.3; O2SAT 98
[2024-07-21] MEDS: Pantoprazole Sodium 80 MG in 0.9% Normal Saline (100mL Bag) 80 ML 10 MG CONT INF (04:41)
[2024-07-21 05:31] VITALS: BMI 23.7
[2024-07-21] MEDS: Levothyroxine 25 MCG TABLET PO (05:35)
[2024-07-21] MEDS: Insulin Lispro 100 UNIT/ML INSULN.PEN SC ×2 (05:36→11:40)
[2024-07-21 06:02] LABS: Bedside Glucose 174 mg/dL (74-106)
[2024-07-21 07:28] LABS: Absolute Lymphocyte Count 0.55 X10^3/uL (0.83-4.51); Absolute Neutrophil Count 1.5 X10^3/uL (2.0-7.7); Basophil# 0.01 X10^3/uL; Basophil% 0.4 % (0-1); Eosinophil# 0.08 X10^3/uL; Eosinophils% 3.2 % (0-5); Hematocrit 24.2 % (37-47); Hemoglobin 8.3 g/dL (12.0-15.0); Lymphocyte # 0.55 X10^3/ul (0.83-4.51); Lymphocyte % 22.2 % (19-41); Mean Corp Hgb Conc 34.3 g/dL (32-36); Mean Corpuscular Hgb 34.4 pg (27.0-32.0); Mean Corpuscular Volume 100.4 fL (81-99); Mean Platelet Vol. 9.9 fl (6.2-12.0); Monocyte# 0.29 X10^3/uL; Monocyte% 11.7 % (0-10); NRBC Flagged by Analyzer 0 % (0-5); Neutrophil # 1.54 X10^3/uL (2.7-7.7); Neutrophil % 62.1 % (47-70); POSITIVE COUNT YES; POSITIVE DIFFERENTIAL YES; Platelet Count 56 K/mm3 (150-450); RBC Distribution Width CV 12.9 % (11.6-14.6); RBC Distribution Width SD 46.5 fl (35.1-43.9); Red Blood Count 2.41 M/mm3 (4.2-5.4); White Blood Count 2.5 K/mm3 (4.4-11.0)
[2024-07-21 07:52] LABS: Differential Indicated SCAN CRITERIA MET
[2024-07-21 08:05] LABS: Anion Gap 3 (5-15); BUN 21 mg/dL (7-18); BUN/Creat Ratio 15.1 RATIO (10-20); Calcium,Total 9.2 mg/dL (8.5-10.1); Chloride 110 mmol/L (98-107); Creatinine, Serum 1.39 mg/dL (0.55-1.02); EST Glomerular Filtration Rate 40 mL/min (>60); Est Glom Filt Rate - Afr Amer 48 mL/min (>60); Estimated Creatinine Clearance 29.23 ml/min; Glucose 177 mg/dL (74-106); Potassium 4.2 mmol/L (3.5-5.1); Sodium Level 137 mmol/L (136-145)
[2024-07-21 09:46] VITALS: BP 111/61; PULSE 85; RESP 15; TEMP 36.6; O2SAT 98
[2024-07-21] MEDS: Ursodiol 250 MG Tablet PO (09:48)
[2024-07-21] MEDS: Ceftriaxone 1 GM/50 ML BAG IV (09:48)
[2024-07-21] MEDS: Ezetimibe 10 MG Tablet PO (09:48)
[2024-07-21 12:05] LABS: Hematocrit 25.6 % (37-47); Hemoglobin 8.6 g/dL (12.0-15.0)
[2024-07-21 12:17] LABS: Bedside Glucose 348 mg/dL (74-106)
--- NOTE | 2024-07-21 15:09 | DCINST_ITS ---
Discharge Instructions Diet Discharge Diet: Low fat / Low cholesterol Activity Discharge Activity: Return to Normal Activity Dressing / Incision Call your doctor if you observe: Fever of 101 or Higher, Shortness of breath, Dizziness, Fainting spells, Swelling in the ankles, Chest pain and Increased palpitations (irregular heartbeat) Follow Up Care Test Results: Test results from this visit will be discussed in further detail at your follow- up appointment, if applicable. Discharge Plan Admission Admit Date/Time: 07/19/24 14:40 Attending Provider: Sergey John Primary Care Provider: Billy Wong Consulting Providers: Lauren Olmos Instructions Additional Instructions / Restrictions: Follow-up with your PCP in 1 week to monitor your hemoglobin level to make sure that they stay stable Discharge Orders/Prescriptions Prescriptions: Continued metformin 500 mg tablet 1,000 mg PO BID magnesium oxide 400 mg (241.3 mg magnesium) tablet 400 mg PO BID ferrous sulfate 325 mg (65 mg iron) tablet 325 mg PO DAILY cholecalciferol (vitamin D3) [Vitamin D3] 25 mcg (1,000 unit) Tablet 25 mcg PO DAILY glimepiride 4 mg tablet 2 mg PO QHS ezetimibe 10 mg tablet 10 mg PO DAILY furosemide [Lasix] 20 mg tablet 20 mg PO DAILY 30 Days Qty: 30 0RF Rx Instructions: take it once daily for 2 weeks and then once every other day spironolactone 50 mg tablet 50 mg PO DAILY 30 Days Qty: 30 0RF Rx Instructions: Hold if serum potassium more than 5.1. glimepiride 4 mg tablet 4 mg PO DAILY carvedilol 6.25 mg tablet 6.25 mg PO BID Qty: 180 3RF Rx Instructions: must administer with a meal/food famotidine 20 mg tablet 20 mg PO BID 90 Days Qty: 180 1RF colestipol 1 gram tablet 1 g PO DAILY PRN (Reason: Diarrhea) Qty: 90 3RF 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 mg tablet 250 mg PO BID Qty: 180 3RF Referrals / Follow Up: Billy Wong MD [Primary Care Provider] - Within 1 Week Disposition Disposition (needs filled in before D/C Order can be placed): Home, Self Care
--- NOTE | 2024-07-21 16:01 | PCM.DC.SUM ---
Providers Date of Admission: 07/19/24 Primary Care Physician: Dr. Billy Wong MD Consultations 07/19/24 15:35 Consult: Gastroenterology Routine Consulting Provider: [facility] Reason for Consult: GI bleed EMERGENT Consult: No MD Notified: Yes Date Notified: 07/19/24 Time Notified: 14:49 Method of Notification: ED Physician Initiated Reason For Visit: UPPER GIB Diagnosis Discharge Diagnosis (1) Hematemesis: Status: Acute Code(s): K92.0 - Hematemesis Medications at Discharge Home Medications cholecalciferol (vitamin D3) 25 mcg (1,000 unit) tablet (Vitamin D3) 25 mcg PO DAILY supplement 12/12/21 glimepiride 4 mg tablet 4 mg PO DAILY diabetes 12/12/22 carvedilol 6.25 mg tablet 6.25 mg PO BID BP #180 tabs 11/11/23 ezetimibe 10 mg tablet 10 mg PO DAILY Cholesterol 12/31/23 glimepiride 4 mg tablet 2 mg PO QHS diabetes 12/31/23 magnesium oxide 400 mg (241.3 mg magnesium) tablet 400 mg PO BID supplement 02/11/24 metformin 500 mg tablet 1,000 mg PO BID diabetes 02/11/24 famotidine 20 mg tablet 20 mg PO BID Stomach acid 90 days #180 tabs 05/11/24 ferrous sulfate 325 mg (65 mg iron) tablet 325 mg PO DAILY supplement 05/15/24 colestipol 1 gram tablet 1 g PO DAILY PRN Diarrhea #90 tabs 07/04/24 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 Woke up at 3 AM with hematemesis and vomited 3 total times with a large amount of red blood each time. Endorses she has been scoped in the past and follows with Dr. Martinez. GI contacted in the ED who are aware and recommended admission and GI c/s. Patient given Protonix, octreotide, Rocephin, IV fluids. Hospitalist contacted for admission. Patient evaluated bedside. She endorses several episodes of hematemesis overnight with her most recent episode at 3:30 AM and did not have any since that time. She is not having any abdominal pain at present and no blood per rectum. She reports she was diagnosed with COVID on the sixth of this month and since then has not had a great appetite and has been having difficulty taking her medications and she will a lot of burning after she takes her medicine and over the last week she has not been able to take some of them given this burning feeling and not being able to identify which medication is causing it. Has not been taking Protonix due to diarrhea and has not been taking famotidine either. Additionally reports that she was just in [place] hiking yesterday and was short of breath on exertion and feeling very weak, still will get shortness of breath on exertion but not feeling short of breath at this time denies any present abdominal pain, no blood in stool. Has had a chronic cough since COVID with overall fairly poor p.o. intake. Hospital Course: 1. Hematemesis in the setting of esophageal varices secondary to HASTINGS and previous gastric ulcers with new Cari-Jackson tear/pancytopenia due to liver disease?68-year-old female presented to the hospital with hematemesis and pancytopenia secondary to cirrhosis from [place]. EGD shows continued varices as well as portal hypertensive gastropathy and a new Cari-Jackson tear that was treated. She was continued on famotidine though she does have difficulty with PPI. She was initially started on Rocephin as well as octreotide and PPI drip. Hemoglobin is stable, this morning was 8.3 and on recheck it was 8.6. I discussed with gastroenterology and they felt comfortable with her discharge today will continue with famotidine on discharge and hopefully she will be able to start taking a PPI on an outpatient basis. I discussed with her the plan for discharge today she expressed understanding of the risk benefits going home and would like to go home today. She will need to follow-up with her PCP in a week as well as gastroenterology within the next month or so. I believe she has an appointment in the middle of July. 2. Essential hypertension, hyperlipidemia, type 2 diabetes, CKD 3B, hypothyroidism are all chronic medical conditions which complicate her care. Her home medications were continued where appropriate Physical Exam Narrative General: Alert, Oriented x3, Cooperative, No apparent distress HEENT: Atraumatic, PERRLA, EOMI, Normocephalic Oral: Moist Mucosa Neck: Supple, No JVD Lungs: Clear to auscultation, Normal air movement, No rhonchi, No wheeze, No rales Cardiovascular: Regular rate, Regular Rhythm, Normal S1, Normal S2, No murmurs Abdomen: Soft, Non Tender, Non-Distended, No Hepato-splenomegaly Extremities: No edema, Capillary Refill Less than 3 Seconds Skin: No rashes, No breakdown Musculoskeletal: No Tenderness to Palpation of Joints or Extremities Neurological: No focal neurological deficits, Motor Exam 5/5 strength throughout, Sensory exam intact to light touch and pain Psych/Mental Status: Normal Affect, Appropriate Medical Records Data Medical Nutrition Assessment Dietitian: Malnutrition Criteria Met Start: 07/20/24 15:37 Freq: Status: Active Protocol: Document 07/20/24 15:37 SB (Rec: 07/20/24 15:37 SB [id number]) Nutrition Malnutrition Evidence of Malnutrition Exists Yes Malnutrition (severe): Acute Illness/Injury Evidenced By Suboptimal Energy Intake ( Severe),Weight Loss (Severe), Physical Changes (Moderate) Clinical Problem Acute Disease or Injury Related Malnutrition Etiology severe related to inadequate oral intake Signs/Symptoms as evidenced by 10.6% weight loss x 2 months, PO meeting < 50% of estimated energy needs x 23 days, moderate muscle wasting in clavicle region, and NPO status. Status Active Problem Recommendation Dietitian Recommendations/Changes Recommend Consistent carbohydrate diet, as diet is advanced. Recommend 120ml strawberry glucerna 4x daily with medpass , as diet is advanced. Will monitor weight, as available. Reviewed and approved by Monie Fernandez RD, LD. Weight / BMI Weight Weight: 125 lb 10.616 oz Body Mass Index (BMI) 23.7 ABG / Lab / Microbiology Data 07/21/24 11:56 07/21/24 06:45 Laboratory: Laboratory Results - last 24 hr 07/20/24 18:00: POC Glucose 179 H 07/20/24 22:51: POC Glucose 280 H 07/21/24 05:36: POC Glucose 174 H 07/21/24 06:45: WBC 2.5 L, RBC 2.41 L, Hgb 8.3 L, Hct 24.2 L, MCV 100.4 H, MCH 34.4 H, MCHC 34.3, RDW Std Deviation 46.5 H, RDW Coeff of Jimmy 12.9, Plt Count 56 L, MPV 9.9, Immature Gran % (Auto) 0.400, Neut % (Auto) 62.1, Lymph % (Auto) 22.2, Real % (Auto) 11.7 H, Eos % (Auto) 3.2, Baso % (Auto) 0.4, Absolute Neuts (auto) 1.5 L, Absolute Lymphs (auto) 0.55 L, Nucleated RBC % 0, Diff Path Review February, Sodium 137, Potassium 4.2, Chloride 110 H, Carbon Dioxide 24.0, Anion Gap 3 L, BUN 21 H, Creatinine 1.39 H, Estim Creat Clear Calc 29.23, Est GFR (MDRD) Af Amer 48 L, Est GFR (MDRD) Non-Af 40 L, BUN/Creatinine Ratio 15.1, Glucose 177 H, Calcium 9.2 07/21/24 11:39: POC Glucose 348 H 07/21/24 11:56: Hgb 8.6 L, Hct 25.6 L D/C Instructions Discharge Diet: Low fat / Low cholesterol Call your doctor if you observe: Fever of 101 or Higher, Shortness of breath, Dizziness, Fainting spells, Swelling in the ankles, Chest pain and Increased palpitations (irregular heartbeat) Meaningful Use Info Meaningful Use Meaningful Use Diagnoses (Choose all that apply): None applicable Ischemic Stroke Statin Dosing Therapy Reference: STATIN DOSE THERAPY REFERENCE: * Patients > 75 years receive moderate or high dose statin therapy. * Patients 75 years or YOUNGER should receive HIGH intensity statin dose unless contraindicated. You will be required to document reason for non-treatment if statin daily dose does not meet guidelines. HIGH DOSE STATIN THERAPY DAILY Atorvastatin > than or = to 40 mg Rosuvastatin > than or = to 20 mg Amlodipine + Atorvastatin > than or = to 2.5/40 mg Ezetimibe + Simvastatin 10/80 mg Simvastatin 80mg Discharge Plan Admission Admit Date/Time: 07/19/24 14:40 Attending Provider: Sergey John Primary Care Provider: Billy Wong Consulting Providers: Lauren Olmos Instructions Additional Instructions / Restrictions: Follow-up with your PCP in 1 week to monitor your hemoglobin level to make sure that they stay stable Discharge Orders/Prescriptions Prescriptions: Continued metformin 500 mg tablet 1,000 mg PO BID magnesium oxide 400 mg (241.3 mg magnesium) tablet 400 mg PO BID ferrous sulfate 325 mg (65 mg iron) tablet 325 mg PO DAILY cholecalciferol (vitamin D3) [Vitamin D3] 25 mcg (1,000 unit) Tablet 25 mcg PO DAILY glimepiride 4 mg tablet 2 mg PO QHS ezetimibe 10 mg tablet 10 mg PO DAILY furosemide [Lasix] 20 mg tablet 20 mg PO DAILY 30 Days Qty: 30 0RF Rx Instructions: take it once daily for 2 weeks and then once every other day spironolactone 50 mg tablet 50 mg PO DAILY 30 Days Qty: 30 0RF Rx Instructions: Hold if serum potassium more than 5.1. glimepiride 4 mg tablet 4 mg PO DAILY carvedilol 6.25 mg tablet 6.25 mg PO BID Qty: 180 3RF Rx Instructions: must administer with a meal/food famotidine 20 mg tablet 20 mg PO BID 90 Days Qty: 180 1RF colestipol 1 gram tablet 1 g PO DAILY PRN (Reason: Diarrhea) Qty: 90 3RF 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 mg tablet 250 mg PO BID Qty: 180 3RF Referrals / Follow Up: Billy Wong MD [Primary Care Provider] - 07/24/24 12:40 pm (Appointment is with CORPORATE [employer] OFFICER Teri Orosco. ) Disposition Disposition (needs filled in before D/C Order can be placed): Home, Self Care Charges/Coding Visit Charges Inpatient E&M: 25998 Disch Hosp >30min
[2024-07-22 15:04] LABS: Pathologist Review Reviewed
== END 2024-07-21 16:50 | disposition home or self-care (01) | DRG 441 ==
LOC: ED 11:45 → PCU 14:40
PROVIDERS: Internal Medicine Gastroenterology; Admitting Provider Internal Medicine; Emergency Provider Emergency Medicine; PCP Family Medicine; Visit Provider Family Medicine
PROC: 0DJ08ZZ Inspection of Upper Intestinal Tract, Via Natural or Artificial Opening Endoscopic (ICD-10-PCS; CPT 43235; principal; 2024-07-20 16:25)
DX: K75.81 Nonalcoholic steatohepatitis (NASH) (principal); E43 Unspecified severe protein-calorie malnutrition; K22.6 Gastro-esophageal laceration-hemorrhage syndrome; D61.818 Other pancytopenia; K76.6 Portal hypertension; E87.1 Hypo-osmolality and hyponatremia; I85.10 Secondary esophageal varices without bleeding; K92.0 Hematemesis; K26.9 Duodenal ulcer, unspecified as acute or chronic, without hemorrhage or perforation; E11.22 Type 2 diabetes mellitus with diabetic chronic kidney disease; N18.32 Chronic kidney disease, stage 3b; E03.9 Hypothyroidism, unspecified; I12.9 Hypertensive chronic kidney disease with stage 1 through stage 4 chronic kidney disease, or unspecified chronic kidney disease; I48.91 Unspecified atrial fibrillation; E83.52 Hypercalcemia; E78.5 Hyperlipidemia, unspecified; K74.60 Unspecified cirrhosis of liver; K44.9 Diaphragmatic hernia without obstruction or gangrene; K31.89 Other diseases of stomach and duodenum; Z79.84 Long term (current) use of oral hypoglycemic drugs; Z68.23 Body mass index [BMI] 23.0-23.9, adult; Z79.899 Other long term (current) drug therapy; Z98.41 Cataract extraction status, right eye; Z98.42 Cataract extraction status, left eye; Z90.49 Acquired absence of other specified parts of digestive tract; Z79.890 Hormone replacement therapy
CPT/HCPCS: 36415; 80048; 80053; 82962; 83690; 83735; 84443; 85014; 85018; 85025; 85610; 85730; 86850; 86900; 86901; 86920; 93005; 97802; 99284; J7030; A4216; J2405

== ENCOUNTER → 2024-08-12 | Outpatient (CLI) | payer MEDICARE, OTHER, SELFPAY ==
[2024-08-12 09:13] LABS: Absolute Lymphocyte Count 0.66 X10^3/uL (0.83-4.51); Absolute Neutrophil Count 3.2 X10^3/uL (2.0-7.7); Basophil# 0.03 X10^3/uL; Basophil% 0.6 % (0-1); Eosinophils% 8.5 % (0-5); Hematocrit 26.8 % (37-47); Hemoglobin 9.3 g/dL (12.0-15.0); Lymphocyte # 0.66 X10^3/ul (0.83-4.51); Mean Corp Hgb Conc 34.7 g/dL (32-36); Mean Corpuscular Hgb 35.2 pg (27.0-32.0); Mean Corpuscular Volume 101.5 fL (81-99); Mean Platelet Vol. 10.2 fl (6.2-12.0); Monocyte% 8.5 % (0-10); NRBC Flagged by Analyzer 0 % (0-5); Neutrophil # 3.19 X10^3/uL (2.7-7.7); Neutrophil % 67.8 % (47-70); POSITIVE COUNT YES; Platelet Count 60 K/mm3 (150-450); RBC Distribution Width CV 14.6 % (11.6-14.6); Red Blood Count 2.64 M/mm3 (4.2-5.4); White Blood Count 4.7 K/mm3 (4.4-11.0)
[2024-08-12 09:16] LABS: Differential Indicated SCAN CRITERIA MET
[2024-08-12 09:24] LABS: International Normalized Ratio 1.3; Prothrombin Time (Protime)PT. 15.9 SECONDS (11.7-14.9)
[2024-08-12 09:43] LABS: ALB/GLOB Ratio 0.8 RATIO (0.9-2.4); AST(SGOT) 37 U/L (15-37); Alanine Aminotransfer ALT/SGPT 37 U/L (13-56); Albumin, Serum 3.1 g/dL (3.2-5.0); Alkaline Phosphatase 104 U/L (45-117); Anion Gap 5 (5-15); BUN 18 mg/dL (7-18); BUN/Creat Ratio 14.8 RATIO (10-20); Calcium,Total 10.1 mg/dL (8.5-10.1); Chloride 110 mmol/L (98-107); Creatinine, Serum 1.22 mg/dL (0.55-1.02); EST Glomerular Filtration Rate 47 mL/min (>60); Est Glom Filt Rate - Afr Amer 56 mL/min (>60); Glucose 104 mg/dL (74-106); Magnesium 1.4 mg/dL (1.6-2.6); Phosphorus 2.4 mg/dL (2.5-4.9); Potassium 4.7 mmol/L (3.5-5.1); Protein, Total 7.1 g/dL (6.4-8.2); Sodium Level 138 mmol/L (136-145)
[2024-08-12 09:57] LABS: Anisocytosis 1+; Differential Comment SCANNED; Ovalocyte 1+; Platelet Estimate MOD DEC (ADEQ); Tear Drop Cell 1+
== END | disposition home or self-care (01) ==
LOC: LAB 08:42
PROVIDERS: PCP Family Medicine; Referring Provider Internal Medicine; Visit Provider Internal Medicine
DX: K74.60 Unspecified cirrhosis of liver (principal); I85.00 Esophageal varices without bleeding; D64.9 Anemia, unspecified; R60.9 Edema, unspecified
CPT/HCPCS: 36415; 80053; 82105; 83735; 84100; 85025; 85610

== ENCOUNTER → 2024-08-21 | Outpatient (CLI) | payer MEDICARE, OTHER, SELFPAY ==
--- NOTE | 2024-08-21 13:53 | ECHOD_ITS ---
Reason For Study: PHTN Procedure This was a 2D Doppler, Color Flow transthoracic echocardiogram. Exam performed in department. Left Ventricle Normal LV size. Left ventricular systolic function is normal. The left ventricular ejection fraction is 55 %. No regional wall motion abnormalities noted. Right Ventricle Normal RV size. Normal systolic function. Atria Normal left atrium. Normal right atrium. Mitral Valve Normal mitral valve. Tricuspid Valve Normal tricuspid valve. Mild (1+) tricuspid valve insufficiency. Pulmonary artery systolic pressure is 36 mmHg. Aortic Valve Trisinus/trileaflet aortic valve. Great Vessels Normal aortic root. The pulmonary artery is normal size. Inferior vena cava collapse with respiration. Pericardium/Pleural No pericardial effusion. MMode/2D Measurements & Calculations LVIDd: 4.5 cm IVSd: 0.87 cm Ao root diam: 3.4 cm LVIDs: 2.8 cm LVPWd: 0.84 cm RVDd: 3.2 cm FS: 36.9 % LAV(MOD-bp): 54.5 ml LVAd ap4: 18.4 cm2 SV(MOD-sp4): 25.2 ml LAV(MOD-bp) Indexed: 35.6 ml/m2 LVLd ap4: 6.3 cm LAV(MOD-sp2): 45.3 ml EDV(MOD-sp4): 46.2 ml LAV(MOD-sp4): 59.8 ml EDV(sp4-el): 45.6 ml LVAs ap4: 10.8 cm2 LVLs ap4: 4.9 cm ESV(MOD-sp4): 21.0 ml ESV(sp4-el): 20.4 ml EF(MOD-sp4): 54.6 % EF(sp4-el): 55.2 % SV(sp4-el): 25.2 ml LA dimension(2D): 3.8 cm LA A4 area: 20.6 cm2 RA A4 area: 14.9 cm2 TAPSE: 2.1 cm Time Measurements MV dec time: 0.16 sec Doppler Measurements & Calculations MV E max marquez: 83.9 cm/sec Lat Peak E' Marquez: 9.9 cm/sec Med Peak E' Marquez: 8.5 cm/sec MV A max marquez: 67.4 cm/sec E/E' lat: 8.5 E/E' med: 9.9 MV E/A: 1.2 MV V2 max: 82.6 cm/sec MV P1/2t max marquez: 82.1 cm/sec Ao V2 max: 105.7 cm/sec MV max P.7 mmHg MV P1/2t: 60.6 msec Ao max P.5 mmHg MV V2 mean: 49.6 cm/sec Ao V2 mean: 82.1 cm/sec MV mean P.1 mmHg MV dec slope: 397.2 cm/sec2 Ao mean P.9 mmHg MV V2 VTI: 23.0 cm MVA(P1/2t): 3.6 cm2 Ao V2 VTI: 26.1 cm AV (velocity ratio): 0.75 LV V1 max: 85.5 cm/sec MR max marquez: 484.4 cm/sec PA V2 max: 86.3 cm/sec LV V1 max P.9 mmHg MR max P.8 mmHg PA V2 mean: 59.3 cm/sec LV V1 mean P.6 mmHg LV V1 mean: 60.0 cm/sec LV V1 VTI: 19.6 cm TR max marquez: 288.2 cm/sec TR max P.2 mmHg ECHO/Echo Complete Interpretation Summary Normal LV size. Left ventricular systolic function is normal. The left ventricular ejection fraction is 55 %. Mild (1+) tricuspid valve insufficiency. Pulmonary artery systolic pressure is 36 mmHg. Ordering Physician: Nigel Groves Referring Physician: Billy Wong; Stanley Garcia Performed By: Emilee Harrison, RDCS, RVT
== END | disposition home or self-care (01) ==
LOC: CVS 13:51
PROVIDERS: PCP Family Medicine; Referring Provider Internal Medicine Cardiovascular Disease; Visit Provider Internal Medicine Cardiovascular Disease
DX: I27.20 Pulmonary hypertension, unspecified (principal); I48.91 Unspecified atrial fibrillation; R01.1 Cardiac murmur, unspecified; I10 Essential (primary) hypertension; I05.1 Rheumatic mitral insufficiency
CPT/HCPCS: 93306

== ENCOUNTER → 2025-01-29 | Outpatient (CLI) | payer MEDICARE, OTHER, SELFPAY ==
--- NOTE | 2025-01-29 08:13 | US_ITS ---
PROCEDURE: ABD LIMITED W/ ELASTOGRAPHY REASON FOR EXAM: CIRRHOSIS WITH VARICES COMPARISON: Comparison is made with prior study dated September 04, 2023. TECHNIQUE: Right upper quadrant abdominal ultrasound. Scality ElastQ Imaging shear wave elastography for non-invasive assessment of liver tissue stiffness. Scality EPIQ Elite. FINDINGS: LIVER: Size: Unremarkable Length: 12.2 cm Echotexture: Coarsened Contour: Normal Lesions: None identified Elastography: EQI Med: 18.9 kPa EQI Med Marquez: 2.49 m/s IQR/Med: 18.5 %* GALLBLADDER: Surgically absent. COMMON BILE DUCT: Dilated measuring up to 13 mm. This most likely secondary to prior cholecystectomy.. PANCREAS: Visualized portions are sonographically unremarkable. Visualized portions of the right kidney are unremarkable. Moderate amount of ascites seen in the right upper quadrant. The spleen is not enlarged. It measures 12.3 cm 5.7 cm 4.8 cm. US/ABD Limited w/ Elastography IMPRESSION: SEVERE HEPATIC FIBROSIS / CIRRHOSIS Reference Values: SRU <1.37 m/s (5.7kPa): No to mild fibrosis 1.37 m/s - 2.2 m/s: Moderate to severe fibrosis >2.2 m/s (15kPa): Significant fibrosis / cirrhosis METAVIR Score F2 or higher: 1.34 m/s (5.7kPa) F3 or higher: 1.55 m/s (7.3kPa) F4: 1.80 m/s (10kPa) * If the IQR/Med is >30%, the variance in the measurements is a large and the a ccuracy of the measurement may be in question. Reading Location: [place] [id number]
[2025-01-29 09:46] LABS: Absolute Lymphocyte Count 0.55 X10^3/uL (0.83-4.51); Absolute Neutrophil Count 4.2 X10^3/uL (2.0-7.7); Basophil# 0.03 X10^3/uL; Basophil% 0.6 % (0-1); Eosinophil# 0.21 X10^3/uL; Eosinophils% 3.9 % (0-5); Hematocrit 29.9 % (37-47); Hemoglobin 10.1 g/dL (12.0-15.0); Lymphocyte # 0.55 X10^3/ul (0.83-4.51); Lymphocyte % 10.3 % (19-41); Mean Corp Hgb Conc 33.8 g/dL (32-36); Mean Corpuscular Hgb 34.1 pg (27.0-32.0); Mean Platelet Vol. 9.9 fl (6.2-12.0); Monocyte# 0.37 X10^3/uL; Monocyte% 6.9 % (0-10); NRBC Flagged by Analyzer 0 % (0-5); Neutrophil # 4.18 X10^3/uL (2.7-7.7); Neutrophil % 77.9 % (47-70); POSITIVE COUNT YES; POSITIVE DIFFERENTIAL YES; Platelet Count 75 K/mm3 (150-450); RBC Distribution Width CV 14.3 % (11.6-14.6); RBC Distribution Width SD 52.6 fl (35.1-43.9); Red Blood Count 2.96 M/mm3 (4.2-5.4); White Blood Count 5.4 K/mm3 (4.4-11.0)
[2025-01-29 09:53] LABS: Differential Indicated SCAN CRITERIA MET
[2025-01-29 10:05] LABS: International Normalized Ratio 1.1; Prothrombin Time (Protime)PT. 14.2 SECONDS (11.7-14.9)
[2025-01-29 10:11] LABS: Ammonia 19.5 umol/L (11-51)
[2025-01-29 10:27] LABS: AST(SGOT) 42 U/L (<=31); Alanine Aminotransfer ALT/SGPT 32 U/L (<=34); Albumin, Serum 3.5 g/dL (3.4-4.8); Alkaline Phosphatase 115 U/L (35-104); Anion Gap 10 (5-15); BUN 18 mg/dL (4-19); BUN/Creat Ratio 14.1 RATIO (10-20); Calcium,Total 9.7 mg/dL (7.6-11.0); Carbon Dioxide 20.1 mmol/L (21.0-32.0); Chloride 104 mmol/L (98-108); Creatinine, Serum 1.25 mg/dL (0.70-1.20); EST Glomerular Filtration Rate 47 (>60); Globulin 3.7 g/dL (2.2-4.2); Glucose 177 mg/dL (70-99); Potassium 4.9 mmol/L (3.3-5.1); Protein, Total 7.2 g/dL (5.9-8.4); Sodium Level 135 mmol/L (133-145); Total Bilirubin 1.11 mg/dL (0.00-1.30)
[2025-01-29 10:33] LABS: Vitamin D,25 Hydroxy 49.6 ng/mL (30-100)
[2025-01-29 10:53] LABS: Platelet Estimate MOD DEC (ADEQ)
== END | disposition home or self-care (01) ==
LOC: US 08:10
PROVIDERS: PCP Family Medicine; Referring Provider Internal Medicine; Visit Provider Internal Medicine
DX: K74.60 Unspecified cirrhosis of liver (principal); I85.10 Secondary esophageal varices without bleeding; E11.9 Type 2 diabetes mellitus without complications; M81.0 Age-related osteoporosis without current pathological fracture; D64.9 Anemia, unspecified
CPT/HCPCS: 36415; 76705; 76981; 80053; 82140; 82306; 85025; 85610; 86140

== ENCOUNTER → 2025-06-08 | Outpatient (CLI) | payer MEDICARE, OTHER, SELFPAY ==
[2025-06-08 08:45] LABS: Hematocrit 27.1 % (37-47); Hemoglobin 9.4 g/dL (12.0-15.0); Immature Granulocytes Count 0.010 X10^3/uL (0.0-0.0); Mean Corp Hgb Conc 34.7 g/dL (32-36); Mean Corpuscular Volume 100.4 fL (81-99); Mean Platelet Vol. 10.7 fl (6.2-12.0); NRBC Flagged by Analyzer 0 % (0-5); POSITIVE COUNT YES; POSITIVE DIFFERENTIAL YES; Platelet Count 53 K/mm3 (150-450); RBC Distribution Width CV 13.2 % (11.6-14.6); RBC Distribution Width SD 48.0 fl (35.1-43.9); Red Blood Count 2.70 M/mm3 (4.2-5.4); White Blood Count 4.3 K/mm3 (4.4-11.0)
[2025-06-08 09:02] LABS: Prothrombin Time (Protime)PT. 15.3 SECONDS (11.7-14.9)
[2025-06-08 09:11] LABS: Ammonia 41.2 umol/L (11-51)
[2025-06-08 09:28] LABS: AST(SGOT) 39 U/L (<=31); Alanine Aminotransfer ALT/SGPT 30 U/L (<=34); Albumin, Serum 3.7 g/dL (3.4-4.8); Alkaline Phosphatase 100 U/L (35-104); Anion Gap 12 (5-15); BUN 28 mg/dL (4-19); BUN/Creat Ratio 18.3 RATIO (10-20); Bilirubin, Direct 0.43 mg/dL (0.00-0.30); Calcium,Total 10.4 mg/dL (7.6-11.0); Carbon Dioxide 22.5 mmol/L (21.0-32.0); Chloride 100 mmol/L (98-108); Cholesterol 149 mg/dL (<=200); Ferritin 53 ng/mL (22-378); Globulin 3.7 g/dL (2.2-4.2); Glucose 96 mg/dL (70-99); Low Density Lipoprotein Calc. 63 mg/dL; Potassium 4.4 mmol/L (3.3-5.1); Triglycerides 85 mg/dL; Very Low Density Lipoprotein 17 mg/dL (5-40); Vitamin B12 268 pg/mL (180-914); cholesterol:hdl ratio screen 2.15
[2025-06-08 09:48] LABS: CRP 6.87 mg/L (0.0-3.0); Iron 68 ug/dL (50-170); Iron Binding Capacity,Total 342 ug/dL (250-450); Iron Binding Capacity,Unsat 274 ug/dL (228-428)
== END | disposition home or self-care (01) ==
LOC: LAB 08:04
PROVIDERS: PCP Family Medicine; Referring Provider Internal Medicine; Visit Provider Internal Medicine
DX: K74.60 Unspecified cirrhosis of liver (principal); I85.00 Esophageal varices without bleeding; I27.20 Pulmonary hypertension, unspecified; E11.9 Type 2 diabetes mellitus without complications; D64.9 Anemia, unspecified; E78.2 Mixed hyperlipidemia; I10 Essential (primary) hypertension; R63.4 Abnormal weight loss
CPT/HCPCS: 36415; 80053; 80061; 82105; 82140; 82248; 82607; 82728; 83036; 83540; 83550; 84439; 84443; 85025; 85610; 86140; 86706

== ENCOUNTER → 2025-06-17 | Outpatient (CLI) | payer MEDICARE, OTHER, SELFPAY ==
[2025-06-17 10:42] LABS: Anion Gap 11 (5-15); BUN 21 mg/dL (4-19); BUN/Creat Ratio 16.9 RATIO (10-20); Calcium,Total 10.3 mg/dL (7.6-11.0); Carbon Dioxide 19.3 mmol/L (21.0-32.0); Chloride 104 mmol/L (98-108); Glucose 114 mg/dL (70-99); Magnesium 2.0 mg/dL (1.5-2.2); Potassium 4.7 mmol/L (3.3-5.1)
== END | disposition home or self-care (01) ==
LOC: LAB 09:17
PROVIDERS: PCP Family Medicine; Referring Provider Internal Medicine; Visit Provider Internal Medicine
DX: R06.09 Other forms of dyspnea (principal); I85.00 Esophageal varices without bleeding; K74.60 Unspecified cirrhosis of liver; R19.7 Diarrhea, unspecified
CPT/HCPCS: 36415; 80048; 83735; 84100

== ENCOUNTER → 2025-08-06 | Outpatient (CLI) | payer MEDICARE, OTHER, SELFPAY ==
[2025-08-06 11:32] LABS: Anion Gap 11 (5-15); BUN 24 mg/dL (4-19); BUN/Creat Ratio 15.9 RATIO (10-20); Calcium,Total 9.8 mg/dL (7.6-11.0); Carbon Dioxide 23.6 mmol/L (21.0-32.0); Chloride 100 mmol/L (98-108); Glucose 163 mg/dL (70-99); Potassium 4.1 mmol/L (3.3-5.1)
== END | disposition home or self-care (01) ==
LOC: LAB 10:01
PROVIDERS: PCP Family Medicine; Referring Provider Student in an Organized Health Care Education/Training Program; Visit Provider Student in an Organized Health Care Education/Training Program
DX: K74.60 Unspecified cirrhosis of liver (principal); N18.32 Chronic kidney disease, stage 3b; R18.8 Other ascites
CPT/HCPCS: 36415; 80048

== ENCOUNTER → 2025-09-06 | Outpatient (CLI) | payer MEDICARE, OTHER, SELFPAY ==
--- NOTE | 2025-09-06 09:33 | US_ITS ---
PROCEDURE: ABDOMEN LIMITED 09/06/2025 REASON FOR EXAM: RUQ PAIN TECHNIQUE: Procedure Code: USABDL Modality: US Procedure: ABDOMEN LIMITED COMPARISON: January 29, 2025. FINDINGS: Liver: Diffusely echogenic suggesting fatty infiltration. Gallbladder: Surgically absent. Common bile duct: Normal measuring 2.7 mm . Pancreas: Normal Other: Visualized portions of the right kidney are unremarkable. Incidental note is made of ascites and 4 quadrants of the abdomen more prominent in the left lower quadrant. US/Abdomen Limited IMPRESSION: Diffuse fatty infiltration of the liver. Ascites. Reading Location: [place] [id number]
== END | disposition home or self-care (01) ==
PROVIDERS: PCP Family Medicine; Referring Provider Student in an Organized Health Care Education/Training Program; Visit Provider Student in an Organized Health Care Education/Training Program
DX: K74.60 Unspecified cirrhosis of liver (principal); R18.8 Other ascites
CPT/HCPCS: 76705

== ENCOUNTER 2025-10-27 06:27 | Day surgery (SDC) | payer MEDICARE, OTHER, SELFPAY ==
--- NOTE | 2025-10-19 18:02 | PAT.ANESEVAL ---
Pre-Assessment Diagnosis/Proposed Procedure Planned Operative Procedure(s): EGD, colonoscopy Anesthesia History Anesthesia History - certified detention deputy: Anesthesia History - certified detention deputy Hx Hospitalization No 10/18/25 15:30 Any Problems With Anesthesia No 10/18/25 15:30 Cholinesterase deficiency No 10/18/25 15:30 You/Your Family Experience No 10/18/25 15:30 fever (hyperthermia) with Relationship Recent Exposure to Contagious Yes: Covid on 07/03/2024 07/20/24 02:53 Disease Does patient have nerve No 10/18/25 15:30 stimulator Patient instructed to have device shut off --Does patient have Pacemaker or ICD? When Was Last Pacemaker Check QUESTION #4 FULL TEXT: You/Your Family Experience fever (hyperthermia) with Anesthesia Last Oral Intake Last Oral intake: Last Oral Intake NPO since Meds taken in AM with sips of water? Meds patient instructed to take am of surgery PONV PONV - certified detention deputy: PONV - certified detention deputy Female Yes 10/18/25 15:30 HX of Motion Sickness No 10/18/25 15:30 HX of N/V After Surgery No 10/18/25 15:30 Non-Smoker Yes 10/18/25 15:30 Duration of Surgery greater No 10/18/25 15:30 than 60 minutes Number of Risk Factors 2 10/18/25 15:30 PONV Score Moderate Risk 10/18/25 15:30 Height & Weight Height & Weight: Anesthesia: Height & Weight Height 5 ft 1 in 06/17/25 13:35 Respiratory Assessment Respiratory Assessment - certified detention deputy: Respiratory Tract Infection Hx - certified detention deputy Hx Respiratory Tract Infection No 10/18/25 15:30 STOP Sleep Apnea STOP Sleep Apnea - certified detention deputy: STOP Sleep Apnea - certified detention deputy Hx Hypertension Yes 10/18/25 15:30 Hx Sleep Apnea No 10/18/25 15:30 CPAP BIPAP Do you snore loudly (louder No 10/18/25 15:30 than talking or can be heard Do you often feel tired/ No 10/18/25 15:30 fatigued/ sleepy during daytime? Has anyone observed you stop No 10/18/25 15:30 breathing during sleep? STOP Results Negative 10/18/25 15:30 QUESTION #5 FULL TEXT : Do you snore loudly (louder than talking or can be heard through closed doors)? Tobacco Use History Tobacco Use History - certified detention deputy: Tobacco Use History - certified detention deputy Tobacco Use Smoking Status Never smoker 10/18/25 15:30 Hx Tobacco Use No 10/18/25 15:30 Years Smoking Packs Smoked per Day Smoking Cessation Date was within the last 15 years Hx Smoking Cessation Date Hx Smoking Cessation Counseling Hematologic Medial History Hematologic Hx - certified detention deputy: Hematologic Medical Hx - special education aide Hx of Blood Transfusion Yes 10/18/25 15:30 Hx of Transfusion in last 3 No 10/18/25 15:30 Months Date of Last Transfusion (if within last 3 months) Ever experience any problems No 10/18/25 15:30 with transfusion(s)? Specify any problems Hx of Preganancy in last 3 N/A 10/18/25 15:30 Months Nurse Filling Out Transfusion AUGUSTIN 10/18/25 15:30 & Questions: Date: 10/18/25 10/18/25 15:30 Time: 15:37 10/18/25 15:30 Patient unable to answer at this time (ie. confused, unrespo /Reproduction History /Reproductive History - certified detention deputy: /Reproductive Hx- certified detention deputy Hx Now Gestational Age (in weeks): EDC: Hx Hx Para Hx Section SAB No 10/18/25 15:30 Does the father of the baby or his family experience fever w Father of the baby Malignant Hypertension history comment [facility] Medical History (Updated 10/18/25 @ 15:35 by Ana Laura Pedroza) Abnormal ultrasound of liver Cataract (lens) fragments in eye following cataract surgery, bilateral Chronic kidney disease (CKD) Difficult intravenous access Wears glasses History of GI bleed History of ulceration Non-smoker Shortness of breath on exertion History of echocardiogram Cardiology follow-up encounter History of rheumatic fever Esophageal varices Renal insufficiency Vitamin B 12 deficiency Pulmonary HTN Rheumatic mitral insufficiency Hyperlipidemia Essential hypertension Acquired thrombocytopenia Diarrhea Anemia Bleeding tendency Post-menopausal Restless legs History of stress test Irregular heartbeat Thrombocytopenia Cirrhosis Acute on chronic blood loss anemia Diabetes Atrial fibrillation Home Medications ?Medication ?Instructions ?Recorded ?Last Taken ?Type cholecalciferol (vitamin D3) 25 25 mcg PO DAILY supplement 12/12/21 01/01/24 08:30 History mcg (1,000 unit) tablet (Vitamin D3) glimepiride 4 mg tablet 4 mg PO BID diabetes 12/12/22 01/01/24 16:00 History ezetimibe 10 mg tablet 10 mg PO DAILY Cholesterol 12/31/23 01/01/24 19:00 History famotidine 20 mg tablet 20 mg PO BID Stomach acid 90 days 05/11/24 Unknown Rx #180 tabs ferrous sulfate 325 mg (65 mg 325 mg PO DAILY supplement 05/15/24 Unknown History iron) tablet colestipol 1 gram tablet 1 g PO DAILY PRN Diarrhea #90 tabs 07/04/24 Unknown Rx carvedilol 6.25 mg tablet 6.25 mg PO BID BP #180 tabs 12/07/24 Unknown Rx levothyroxine 25 mcg tablet 25 mcg PO QDAY 02/08/25 Unknown History metformin 500 mg tablet 1,000 mg PO BID diabetes 02/08/25 Unknown History 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 3 02/09/25 Unknown Rx months #180 tabs spironolactone 50 mg tablet 25 mg (1/2 x 50 mg) PO DAILY BP 3 06/09/25 Unknown Rx months #45 tabs furosemide 20 mg tablet (Lasix) 30 mg PO DAILY edema 10/18/25 Unknown History magnesium oxide 400 mg (241.3 mg 400 mg PO BID supplement 10/18/25 Unknown History magnesium) tablet mirtazapine 15 mg tablet 15 mg PO QPM PRN to increase 10/18/25 Unknown History apetite Allergy/AdvReac Type Severity Reaction Status Date / Time diltiazem (From Cardizem) AdvReac Intermediate elevates Verified 02/08/25 10:52 glucose sitagliptin (From Januvia) AdvReac Intermediate CP/SOB Verified 02/08/25 10:52 pioglitazone (From Actos) AdvReac Swelling Verified 02/08/25 10:52 [id number] Reductase AdvReac MAKES MY Verified 02/08/25 10:52 Inhibitor ([id number] LEGS ACHE Reductase Inhibitor) Family History Father No problems noted. Surgical History (Updated 10/18/25 @ 15:35 by Ana Laura Pedroza) History of bilateral cataract extraction (~08/2023) History of colonoscopy S/P ablation of atrial fibrillation History of cholecystectomy History of History of esophagogastroduodenoscopy (EGD) History of prior ablation treatment Social History Smoking Status: Never smoker alcohol intake: never substance use type: does not use caffeine: Yes what type of physical activity do you participate in: walking frequency: 3-4 times per week Audit: Pertinent Findings Pertinent Findings EKG Perinent findings: 07/20/2024. Normal sinus rhythm. Nonspecific T wave abnormality. Stress test pertinent findings: 04/28/2018. EF was not accurately obtained. No areas of reversibility are noted to suggest ischemia. No previous infarct. Atrial fibrillation with uncontrolled ventricular response rate. Echo (EF%) pertinent findings: 08/21/2024. EF of 55%. PASP is 36 mmHg. No aortic stenosis noted. Consult pertinent findings: 02/08/2025. Demiter PAC. 1. Atrial fibrillation-status post RFA ablation December 2018. Patient has no recurrence of A-fib since her ablation. She does note palpitations more so twice a year but uncertain if this is atrial fibrillation. Currently on rate limiting medication of carvedilol. Not on anticoagulant given history of GI bleed. [id number] score of 4. Patient is continue current medications. 2. Hypertension?controlled. Continue carvedilol, spironolactone and Lasix. 3. Dyspnea on exertion-last echo with a EF of 55%. Patient is able to hike without concerns. Will hold off on stress test for now. Patient will notify office if exercise intolerance occurs. Recommendation Anesthesia Recommendation Anesthesia recommendation: OPTIMIZED for anesthesia
[2025-10-27] VITALS (7 sets, daily range): BP systolic 94–125; BP diastolic 59–67; PULSE 71–79; RESP 16–18; TEMP 35.8–36.8; O2SAT 100; BMI 26.2
--- OUTSIDE RECORDS SUMMARY | 2025-10-27 06:33 | XMS RPT_ITS | CCD ---
Author Organization [facility] Care Team Providers Care Affirmative Action Specialist Name Role Phone BAILEE, ELVIS Unavailable Unavailable [facility] Unavailable Unavailable BAILEE, ELVIS Unavailable Unavailable BAILEE, ELVIS Unavailable Unavailable CEBUL, AUSTIN Unavailable Unavailable BAILEE, ELVIS Unavailable Unavailable BAILEE, ELVIS Unavailable Unavailable CEBUL, [place] Unavailable Unavailable BAILEE, ELVIS E Unavailable Unavailable BAILEE, ELVIS E Unavailable Unavailable BAILEE, ELVIS E Unavailable Unavailable CHARLENE KULKARNI Unavailable Unavailable KAILEE RODRIGUEZ Admitting Renata vaKAILEE Butler Attending Renata vailable Kailee Rodriguez MD Unavailable Un available Billy Culp MD Primary Care Provider Dr. Billy Culp Primary Care Provider Dr. Billy Culp Referring Provider Dr. Nigel Groves Attending Provider [phone] Dr. Minh Martinez Attending Provider [phone] Dr. Minh Martinez Other Provider [phone] Dr. Billy Culp Primary Care Provider Dr. Billy Culp Referring Provider Dr. Billy Culp Primary Care Provider Dr. Billy Culp Referring Provider Dr. Minh Martinez Attending Provider [phone] French BARROSO, SHOP ESTIMATOR-C Liz Oro Attending Provider [phone] Dr. Minh Martinez Other Provider [phone] Rogelio Sanchez MD, Kailee Unavailable Un available Billy Culp MD Primary Care Provider Billy Culp MD Primary Care Provider Dr. Billy Culp Primary Care Provider Dr. Billy Culp Referring Provider FriendDr. Wilkinson Attending Provider [phone] Friend, Dr. Wilkinson Other Provider [phone] French BARROSO, SHOP ESTIMATOR-Keven Oro Attending Provider [phone] Rogelio Sanchez MD, Kailee Unavailable Un available Billy Culp MD Primary Care Provider Dr. Billy Culp Primary Care Provider Dr. Billy Culp Referring Provider Friend, Dr. Wilkinson Attending Provider [phone] Friend, Dr. Wilkinson Other Provider [phone] PAUL Zuleta Attending Provider Dr. Nigel Groves Attending Provider [phone] Billy Culp MD Primary Care Provider Rogelio Sanchez MD, Kailee Unavailable Un available Dr. Billy Culp Primary Care Provider Dr. Billy Culp Referring Provider Dr. Minh Martinez Attending Provider [phone] Dr. Billy Culp Primary Care Provider Dr. Billy Culp Referring Provider Dr. Stanley Garcia Attending Provider [phone] FriendDr. Wilkinson Attending Provider [phone] Dr. Minh Martinez Other Provider [phone] Billy Culp Primary Care Provider Dr. Billy Culp Referring Provider Dr. Minh Martinez Attending Provider [phone] Dr. Minh Martinez Other Provider Suni TORRES, Billy Tyler Primary Care Provider Dr. Stanley Garcia Attending Provider Dr. Nigel Groves Attending Provider Suni TORRES, Billy Tyler Primary Care Provider Danna RN, Irma Silverio Unavailable Danna RN, Irma Silverio Unavailable Kwesi LAB SUPPORT TECHNICIAN.ELECTRICAL PRODUCTS ENGINEER, Teri Unavailable Ankush FITZPATRICK, Suzie Unavailable Suni TORRES, Billy Tyler Primary Care Provider Suni TORRES, Dr. Cervantes Primary Care Provider Jose TORRES, Dr. Angel Attending Provider Jose TORRES, Dr. Angel Referring Provider Kwesi LAB SUPPORT TECHNICIAN.ELECTRICAL PRODUCTS ENGINEER, Teri Unavailable Ankush FITZPATRICK, Suzie Unavailable Suni TORRES, Dr. Cervantes Primary Care Provider Jose TORRES, Dr. Angel Attending Provider Jose TORRES, Dr. Angel Referring Provider Suni TORRES, Dr. Cervantes Referring Provider SELF, SELF Referring Unavailable SUNI, BILLY A Primary Care Unavailable AMERICA MCCLURE Attending Unavailable SELF, SELF Referring Unavailable SUNI, BILLY A Primary Care Unavailable AMERICA MCCLURE Attending Unavailable Sg Gonzalez Attending Unavailable Suni, Billy Primary Care Unavailable Suni, Billy Referring Unavailable Suni, Billy Primary Care Unavailable Suni, Billy Referring Unavailable Stanley Garcia Attending Unavailable Suni, Billy Referring Unavailable Suni, Billy Primary Care Unavailable Stanley Garcia Attending Unavailable Stanley Garcia Referring Unavailable Suni, Billy Primary Care Unavailable Stanley Garcia Attending Unavailable Stanley Garcia Referring Unavailable Stanley aGrcia Attending Unavailable Suni, Billy Primary Care Unavailable Suni, Billy Primary Care Unavailable AMERICA MCCLURE Attending Unavailable AMERICA MCCLURE Referring Unavailable SuniBilly Primary Care Unavailable AMERICA MCCLURE Attending Unavailable AMERICA MCCLURE Referring Unavailable Billy Culp Primary Care Unavailable AMERICA MCCLURE Attending Unavailable Stanley Garcia Attending Unavailable Stanley Garcia Referring Unavailable Suni, Billy Primary Care Unavailable SUNIBILLY QUINTERO A Attending Unavailable BALJEET CULPREY A Primary Care Unavailable BILLY CULP A Referring Unavailable BILLY CULP A Primary Care Unavailable SUZIE LECHUGA Attending Unavailable BILLY CULP A Primary Care Unavailable SUZIE LECHUGA Referring Unavailable SUNIBALJEETBILLY A Primary Care Unavailable BILLY CULP A Primary Care Unavailable RYAN KIDD Referring Unavailable BILLY CULP A Primary Care Unavailable SUZIE LECHUGA Referring Unavailable BILLY CULP A Primary Care Unavailable SUZIE LECHUGA Referring Unavailable BALJEET CULPREY A Primary Care Unavailable Allergies Allergy Classification Reported Allergen(s) Allergy Type Date of Onset Reaction(s) Facility (20 sources) atorvastatin; Translations: [ATORVASTATIN CALCIUM] Drug Allergy 3 Other: See Comments [facility] Repository (20 sources) pioglitazone; Translations: [PIOGLITAZONE HCL] Drug Allergy 7 Swelling [facility]ository (20 sources) pravastatin; Translations: [PRAVASTATIN] Drug Allergy 4 Other: See Comments [facility] (20 sources) simvastatin; Translations: [SIMVASTATIN] Drug Allergy 1 Intolerance [facility] (20 sources) SITagliptin; Translations: [SITAGLIPTIN] Drug Allergy 7 Shortness of Breath, Dyspnea [facility] (20 sources) dilTIAZem; Translations: [DILTIAZEM HCL] Drug Allergy 9 Other: See Comments [facility] Other [place] [facility] (20 sources) Lisinopril; Translations: [LISINOPRIL] Drug Allergy 1 Other: See Comments [facility] Work Phone: (20 sources) dilTIAZem Drug Allergy 2 elevates glucose [facility] (6 sources) Flecainide Drug Allergy 1 does not tolerate [facility] Work Phone: (20 sources) pioglitazone Drug Allergy 7 Swelling [facility] (17 sources) Jnehpxl-Wjf-Gsb Reductase Inhibitor; Translations: [Duxywew-Pbf-Mtv Reductase Inhibitor] Propensity to adverse reactions 2 MAKES MY LEGS ACHE [facility] (20 sources) ferrous sulfate; Translations: [FERROUS SULFATE] Drug Allergy 2 Other: See Comments [facility] Work Phone: (5 sources) atorvastatin Drug Allergy 3 [facility] (5 sources) Lisinopril Propensity to adverse reactions to drug 1 [facility] (5 sources) Metoprolol Drug Allergy 1 [facility] (1 source) dilTIAZem Drug Allergy 5 [facility] Repository (1 source) pioglitazone Drug Allergy 5 [facility] Repository Medications Current Medications Medication Drug Class(es) Dates Sig (Normalized) Sig (Original) atovaquone 250 mg / proguanil hydrochloride 100 mg oral tablet (1 source) Antimalarial, Antiprotozoal Start: 12-23-2023 End: 01-18-2024 take 1 tablet by mouth once daily atovaquone-proguanil (MALARONE) 250-100 mg per tablet Take 1 tablet by mouth once daily for 26 days. Start two days before you leave. 26 tablet 0 12/23/2023 01/18/2024 Active Comment on above: Take 1 tablet by lew th once daily for 26 days. Start two days before you leave. carvedilol 6.25 mg oral tablet (20 sources) alpha-Adrenergic Guido, beta-Adrenergic Guido Start: 06-22-2022 End: 12-07-2024 carveDILOL 6.25 MG tablet Take 1 tablet by mouth. 09/26/2022 Active Comment on above: Take 1 tablet by lew th twice daily with meals. Per Cardio, Dr. Groves Take 6.25 mg by mout h twice daily with meals. Take twice daily cephalexin 500 mg oral capsule (2 sources) Cephalosporin Antibacterial Start: 05-02-2022 End: 05-09-2022 take 1 capsule by mouth twice daily cephALEXin (KEFLEX) 500 mg capsule Take 1 capsule by mouth twice daily for 7 days. 14 capsule 0 05/02/2022 05/09/2022 Active Comment on above: Take 1 capsule by mo [facility] twice daily for 7 days. cholecalciferol 0.025 mg oral tablet (20 sources) Vitamin D Start: 12-12-2021 take 1 tablet by mouth once daily Cholecalciferol (Vitamin D3) (Vitamin D3) 25 mcg (1,000 unit) Tablet Active 25 ug PO DAILY December 12, 2021 1:00am supplement Start: 12-12-2021 take 1 tablet by lew twice daily Cholecalciferol (Vitamin D3) (Vitamin D3) 25 mcg (1,000 unit) Tablet Active 25 MCG PO TWICE A DAY December 12, 2021 12:00am Cholecalciferol (Vitamin D3) 50 MCG (2000 UT) tablet Active take 1 tablet by lew once daily cholecalciferol (VITAMIN D) 1,000 unit tab tablet Take 1,000 Units by mouth once daily. Active take 1 tablet by lew twice daily cholecalciferol (VITAMIN D) 1,000 unit tab tablet Take 1,000 Units by mouth twice daily. 0 Active Comment on above: Take 1,000 Units by mouth twice daily. ciprofloxacin 500 mg oral tablet (17 sources) Quinolone Antimicrobial Start: 12-23-19 End: 01-02-20 take 1 tablet by mouth twice daily for diarrhea ciprofloxacin HCl (CIPRO) 500 mg tablet Take 1 tablet by mouth two times a day for 10 days. For travelers diarrhea. 20 tablet 0 12/23/2023 01/02/2024 Active Start: 07-24-2021 End: 08-09-2021 take 1 tablet by mouth twice daily Ciprofloxacin Hcl (Cipro) 500 mg tablet Discontinued 500 mg PO TWICE A DAY 8 July 24, 2021 12:00am August 09, 2021 10:13am Comment on above: Take 1 tablet by lew two times a day for 10 days. For travelers diarrhea. ezetimibe 10 mg oral tablet (20 sources) Dietary Cholesterol Absorption Inhibitor Start: 11-05-2023 End: 02-04-2025 take 1 tablet by mouth once daily Ezetimibe 10 MG tablet Take 1 tablet by mouth daily. 11/05/2023 Active Comment on above: Take 1 tablet by lew once daily. ferrous sulfate 325 mg oral tablet (20 sources) Start: 09-06-2022 take 1 tablet by mouth once daily Ferrous Sulfate 325 mg (65 mg iron) tablet Active 325 mg PO DAILY May 15, 2024 10:54am supplement Start: 09-06-2022 End: 05-15-2024 take 1 tablet by mouth twice daily Ferrous Sulfate 325 mg (65 mg iron) Tablet Discontinued 325 mg PO TWICE A DAY September 06, 2022 1:00am May 15, 2024 11:25am Start: 01-12-2021 End: 03-08-2022 take 1 tablet by mouth three times daily at mealtime ferrous sulfate 325 mg (65 mg iron) tablet Indications: Anemia, unspecified type , Chronic anticoagulation Take 1 tablet by mouth three times daily with meals. 0 01/12/2021 03/08/2022 Discontinued (Discontinued by Patient) Start: 12-01-2020 End: 08-09-2021 Ferrous Sulfate 325 MG table t Discontinued 325 mg PO TWICE A DAY December 01, 2020 1:00am August 09, 2021 10:13am Check with primary doctor 2 in the am and 1 at supper time take 1 tablet by lew th twice daily ferrous sulfate 324 (65 Fe) MG Tab DR tablet Take 1 tablet by mouth 2 times daily. Active Comment on above: Take 1 tablet by lew three times daily with meals. furosemide 20 mg oral tablet (20 sources) Loop Diuretic Start: 07-29-2025 take 1.5 tablets by mouth once daily furOSEmide 20 MG tablet Take 1.5 tablets by mouth daily. 45 tablet 1 07/29/2025 Active Start: 07-29-2025 End: 07-29-2025 take 1.5 tablets by mouth twice daily furOSEmide 20 MG tablet Take 1.5 tablets by mouth 2 times daily. 90 tablet 1 07/29/2025 07/29/2025 Discontinued Start: 02-08-2025 End: 02-09-2025 take 1 tablet by mouth every other day Furosemide (Lasix) 20 mg tablet Active 20 mg PO every other day 45 90 February 09, 2025 4:11pm edema Start: 01-06-2024 End: 04-06-2025 take 1 tablet by mouth once daily Furosemide (Lasix) 20 mg tablet Discontinued 20 mg PO DAILY 90 October 06, 2024 10:04am February 08, 2025 10:55am edema End: 07-29-2025 take 1 tablet by mouth twice daily furOSEmide 20 MG tablet Take 1 tablet by mouth 2 times daily. 07/29/2025 Discontinued (Reorder) glimepiride 4 mg oral tablet (20 sources) Sulfonylurea Start: 12-31-2023 take 2 mg by mouth at bedtime Glimepiride 4 mg tablet Active 2 mg PO AT BEDTIME December 31, 2023 1:00am diabetes Start: 12-31-2023 take 2 mg by mouth at bedtime Glimepiride Active 2 MG PO AT BEDTIME December 31, 2023 1:00am Start: 11-05-2023 End: 08-31-2025 take 1 tablet by mouth twice daily at mealtime glimepiride (AMARYL) 4 mg tablet Take 1 tablet by mouth two times a day with meals. 180 tablet 1 03/04/2025 08/31/2025 Active Start: 12-12-2022 End: 12-12-2022 take 2 tablets by mouth once daily Glimepiride 2 mg tablet Discontinued 4 mg PO DAILY December 12, 2022 10:42am December 12, 2022 10:43am Diabetes Start: 12-12-2022 End: 12-12-2022 take 4 mg by mouth once daily Glimepiride Discontinued 4 MG PO DAILY December 12, 2022 10:42am December 12, 2022 10:43am Start: 12-11-2022 End: 12-12-2022 take 4 mg by mouth twice daily Glimepiride Discontinue d 4 MG PO TWICE A DAY December 11, 2022 11:09am December 12, 2022 10:42am Start: 03-21-2022 End: 07-22-2023 take 1 tablet by mouth once daily at breakfast gliMEPIride 4 MG tablet Take 1 tablet by mouth daily with breakfast. 03/22/2022 Active Start: 03-10-2022 End: 03-21-2022 take 1 tablet by mouth once daily at breakfast glimepiride (AMARYL) 2 mg tablet Indications: Diabetes mellitus type 2 (HCC) Take 1 tablet by mouth daily with breakfast. 90 tablet 1 03/10/2022 03/21/2022 Discontinued Start: 12-01-2020 End: 03-08-2022 take 1 tablet by mouth once daily at breakfast glimepiride (AMARYL) 2 mg tablet Indications: Diabetes mellitus type 2 (HCC) Take 1 tablet by mouth daily with breakfast. 90 tablet 3 05/23/2021 03/08/2022 Discontinued Start: 12-01-2020 End: 12-12-2022 take 2 tablets by mouth twice daily Glimepiride 2 mg tablet Discontinued 4 mg PO TWICE A DAY December 11, 2022 11:09am December 12, 2022 10:42am Diabetes Comment on above: Take 1 tablet by lew th daily with breakfast. Take one tab in the AM and 1/2 a tab in the PM. levothyroxine sodium 0.025 mg oral tablet (20 sources) l-Thyroxine Start: End: take 1 tablet by mouth once daily Levothyroxine 25 MCG tablet Take 1 tablet by mouth daily. 04/06/2025 Active Magnesium (16 sources) Start: take 400 mg by mouth twice daily Magnesium Active 400 MG PO TWICE A DAY December 01, 2020 4:46pm Start: 12-01-2020 End: 02-11-2024 take 2 tablets by mouth twice daily Magnesium 200 MG tablet Discontinued 400 mg PO TWICE A DAY December 01, 2020 1:00am February 11, 2024 10:14am Check with primary doctor Start: 12-01-2020 End: 02-11-2024 take 2 tablets by mouth twice daily Magnesium 200 MG tablet Discontinued 400 mg PO TWICE A DAY December 01, 2020 1:00am February 11, 2024 10:14am Start: 12-01-2020 End: 02-11-2024 take 400 mg by mouth twice daily Magnesium Discontinued 400 MG PO TWICE A DAY December 01, 2020 1:00am February 11, 2024 10:14am Start: 12-01-2020 take 400 mg by mouth twice daily Magnesium Active 400 MG PO TWICE A DAY December 01, 2020 12:00am Start: 12-01-2020 take 400 mg by mouth twice daily Magnesium Active 400 MG PO TWICE A DAY December 01, 2020 1:00am magnesium oxide 400 mg oral tablet (20 sources) Start: 08-18-2024 take 2.2 tablets by mouth three times daily Magnesium Oxide 400 mg (241.3 mg magnesium) tablet Active 400 mg PO THREE TIMES A DAY 90 30 2 August 18, 2024 3:44pm supplement Hold if serum magnesium more than 2.2 Start: 12-21-2021 End: 11-10-2024 take 1 tablet by mouth twice daily magnesium oxide 400 MG tablet Take 1 tablet by mouth 2 times daily. 12/21/2021 Active Comment on above: Take 1 tablet by lew th twice daily. Take 1 tablet by lew th two times a day. mirtazapine 15 mg oral tablet (1 source) Start: 07-29-20 take 1 tablet by mouth once daily in the evening Mirtazapine 15 MG tablet Take 1 tablet by mouth every evening at 6 PM. 30 tablet 1 07/29/2025 Active spironolactone 50 mg oral tablet (20 sources) Aldosterone Antagonist Start: 06-09-20 Spironolactone 50 mg tablet Active 25 mg PO DAILY 45 90 5 June 09, 2025 4:18pm BP Hold if serum potassium more than 5.1. Start: 05-11-2024 End: 06-09-2025 take 1 tablet by mouth once daily Spironolactone 50 mg tablet Discontinued 50 mg PO DAILY 90 90 5 March 04, 2025 5:53pm June 09, 2025 4:19pm BP Hold if serum potassium more than 5.1. Start: 02-11-2024 End: 10-05-2024 take 1 tablet by mouth once daily Spironolactone 25 MG tablet Take 1 tablet by mouth daily. 02/11/2024 Active Completed/Discontinued Medications Medication Drug Class(es) Dates Sig (Normalized) Sig (Original) ascorbic acid 500 mg oral tablet (4 sources) Vitamin C Start: 08-18-2024 End: 02-08-2025 take 1 tablet by mouth twice daily Ascorbic Acid (Vitamin C) 500 mg tablet Discontinued 500 mg PO TWICE A DAY 60 30 6 August 18, 2024 12:00am February 08, 2025 10:55am benzonatate 200 mg oral capsule (20 sources) Non-narcotic Antitussive Start: 08-04-2024 End: 04-06-2025 take 1 capsule by mouth three times daily as needed Benzonatate 200 mg capsule Indications: Persistent dry cough Take 1 capsule by mouth three times a day as needed. 45 capsule 1 08/04/2024 04/06/2025 Discontinued (Course of therapy completed) calcium carbonate 1250 mg / cholecalciferol 200 unt oral tablet (20 sources) Vitamin D End: 04-03-2024 calcium-carbonate- vitamin D3 500 mg-5 mcg (200 unit) per tablet Take by mouth. 0 04/03/2024 Discontinued (Discontinued by Patient) Comment on above: Take by mouth. colestipol hydrochloride 1000 mg oral tablet (20 sources) Bile Acid Sequestrant Start: 12-12-2021 End: 07-04-2024 Colestipol 1 gram tablet Discontinued 1 g PO DAILY as needed for Diarrhea 90 3 May 15, 2024 10:50am July 04, 2024 2:54pm Start: 08-09-2021 End: 02-13-2024 Colestipol 1 gram tablet Dis continued 1 g PO TWICE A DAY 60 2 August 09, 2021 12:00am December 12, 2021 10:45am doxycycline hyclate 100 mg oral capsule (16 sources) Tetracycline-class Drug Start: 07-31-2021 End: 10-25-2021 take 1 capsule by mouth twice daily Doxycycline Hyclate 100 mg capsule Discontinued 100 mg PO TWICE A DAY 60 0 July 31, 2021 12:00am October 25, 2021 3:53pm Take one capsule by mouth two times a day for thirty days. famotidine 20 mg oral tablet (20 sources) Histamine-2 Receptor Antagonist Start: 02-11-2024 End: 07-29-2025 take 1 tablet by mouth twice daily faMOTIdine 20 MG tablet Take 1 tablet by mouth 2 times daily. 05/09/2024 07/29/2025 Discontinued Start: 09-25-2022 End: 02-13-2024 take 1 tablet by mouth twice daily famotidine 40 MG tablet Take 1 tablet by mouth 2 times daily. 09/25/2022 02/13/2024 Discontinued Start: 09-25-2022 End: 10-07-2023 take 1 tablet by mouth once daily Famotidine 40 mg tablet Discontinued 40 mg PO DAILY 90 3 May 01, 2023 1:08pm October 07, 2023 12:11pm Comment on above: Take 1 tablet by lew once daily. Per GI: Dr. Martinez Take 40 mg by mouth once daily. Take 1 tablet by lew once daily. Per liver specialist: [facility] hydroCHLOROthiazide 12.5 mg oral capsule (20 sources) Thiazide Diuretic Start: 2020 End: 2023 take 1 capsule by mouth once daily Hydrochlorothiazide 12.5 MG capsule Discontinued 12.5 mg PO DAILY December 01, 2020 1:00am February 11, 2024 10:40am Check with primary doctor Comment on above: Take 1 capsule by mo [facility] once daily. metFORMIN hydrochloride 500 mg oral tablet (20 sources) Biguanide Start: 2023 End: 2024 take 1 tablet by mouth twice daily Metformin 500 mg tablet Discontinued 500 mg PO TWICE A DAY August 18, 2024 3:35pm February 08, 2025 10:55am diabetes Start: 03-10-2022 End: 03-04-2025 take 2 tablets by mouth twice daily metFORMIN 500 MG tablet Take 2 tablets by mouth 2 times daily. 03/10/2022 Active Start: 10-24-2021 End: 10-25-2021 Metformin 1,000 mg tablet Discontinued 500 mg PO TWICE A DAY October 24, 2021 6:22pm October 25, 2021 3:53pm Check with primary doctor Start: 10-24-2021 End: 10-25-2021 take 500 mg by mouth twice daily Metformin Discontinued 500 MG PO TWICE A DAY October 24, 2021 6:22pm October 25, 2021 3:53pm Start: 08-01-2021 End: 03-08-2022 take 2 tablets by mouth twice daily metFORMIN (GLUCOPHAGE) 500 mg tablet Indications: Diabetes mellitus type 2 (HCC) Take 2 tablets by mouth twice daily. 360 tablet 1 08/01/2021 03/08/2022 Discontinued Start: 12-01-2020 End: 02-11-2024 take 1 tablet by mouth twice daily Metformin 1,000 mg tablet Discontinued 1000 mg PO TWICE A DAY October 25, 2021 3:52pm February 11, 2024 10:14am Check with primary doctor Comment on above: Take 2 tablets by mo [facility] twice daily. Take 2 tablets by mo [facility] two times a day. metoprolol tartrate 25 mg oral tablet (20 sources) beta-Adrenergic Guido Start: 12-01-19 End: 09-26-20 take 1 tablet by mouth twice daily Metoprolol Tartrate 25 mg Tablet Discontinued 25 mg PO TWICE A DAY May 28, 2022 12:00am June 22, 2022 8:35am Comment on above: Take 1 tablet by lew th twice daily. ondansetron 4 mg disintegrating oral tablet (8 sources) Serotonin-3 Receptor Antagonist Start: 12-23-19 End: 04-03-20 take 1 tablet by mouth every eight hours as needed ondansetron orally disintegrating (ZOFRAN ODT) 4 mg disintegrating tablet Take 1 tablet by mouth every 8 hours as needed for nausea/vomiting. 30 tablet 0 12/23/2023 04/03/2024 Discontinued (Course of therapy completed) Comment on above: Take 1 tablet by lew th every 8 hours as needed for nausea/vomiting. pantoprazole 40 mg delayed release oral tablet (20 sources) Proton Pump Inhibitor Start: 10-07-20 End: 02-11-20 take 1 tablet by mouth 1 hour(s) before breakfast Pantoprazole 40 mg tablet,delayed release (DR/EC) Discontinued 40 mg PO .breakfast 90 90 December 30, 2023 1:24pm December 31, 2023 1:40pm Take 1 hour before breakfast. Start: 05-28-2022 End: 09-25-2022 Pantoprazole (Protonix) 40 m g tablet,delayed release (DR/EC) Discontinued 40 mg PO AT BEDTIME May 28, 2022 8:42am September 25, 2022 10:35am Ninety day fill. Take one tab once a day. Start: 02-05-2022 End: 09-25-2022 Pantoprazole (Protonix) 40 m g tablet,delayed release (DR/EC) Discontinued 40 mg PO DAILY 90 February 05, 2022 4:09pm May 28, 2022 8:42am Ninety day fill. Take one tab once a day. Start: 07-24-2021 End: 09-26-2022 take 1 tablet by mouth twice daily Pantoprazole (Protonix) 40 mg tablet,delayed release (DR/EC) Discontinued 40 mg PO TWICE A DAY 90 August 18, 2021 11:57am February 05, 2022 4:12pm Comment on above: Take 40 mg by mouth twice daily. phenazopyridine hydrochloride 200 mg oral tablet (12 sources) Start: 2021 take 1 tablet by mouth every eight hours as needed phenazopyridine (PYRIDIUM) 200 mg tablet Take 1 tablet by mouth three times daily as needed. 6 tablet 0 05/02/2022 Active Comment on above: Take 1 tablet by lew three times daily as needed. microencapsulated potassium chloride 20 meq extended release oral tablet (20 sources) Start: 2020 End: 2023 Potassium Chloride (Klor-Con M20) 20 mEq tablet,ER particles/crystals Discontinued 20 meq PO DAILY December 12, 2021 1:00am February 11, 2024 9:11am Comment on above: Take 1 tablet by lew once daily. potassium phosphate 155 mg / sodium phosphate, dibasic 852 mg / sodium phosphate, monobasic 130 mg oral tablet (4 sources) Start: 2023 End: 2023 Sod Phos Di, [place]-K Phos [place] (Phospha 250 Neutral) 250 mg tablet Discontinued 1 {tbl} PO TWICE A DAY 10 5 0 August 18, 2024 12:00am August 22, 2024 12:00am August 23, 2024 12:08am potassium phosphate 305 mg / sodium phosphate, monobasic 700 mg oral tablet (3 sources) Start: 2024 End: 2024 Potassium,Sodium Monobas Phos 305-700 mg tablet Discontinued 1 {tbl} PO TWICE A DAY 6 3 0 June 18, 2025 10:10am June 20, 2025 12:00am June 21, 2025 12:06am rifAXIMin 550 mg oral tablet (16 sources) Rifamycin Antibacterial Start: 2020 End: 2020 take 1 tablet by mouth twice daily Rifaximin (Xifaxan) 550 mg Tablet Discontinued 550 mg PO TWICE A DAY 60 0 July 24, 2021 12:00am July 31, 2021 11:30am rivaroxaban 15 mg oral tablet (20 sources) Factor Xa Inhibitor Start: 2020 End: 2021 take 1 tablet by mouth once daily Rivaroxaban 15 MG tablet Discontinued 15 mg PO DAILY December 01, 2020 1:00am August 09, 2021 10:14am Check with primary doctor On Hold: Until otherwise instructed Comment on above: Take 1 tablet by lew th once daily. 72 hr scopolamine 0.0139 mg/hr transdermal system (8 sources) Anticholinergic Start: 2023 End: 2023 scopolamine (TRANSDERM-SCOP) patch 1.5 mg/72 hr (delivers 1 mg over 3 days) Apply 1 Patch as directed every 72 hours. Apply patch to skin behind ear 4hrs prior to travel. 6 Patch 0 12/23/2023 04/03/2024 Discontinued (Course of therapy completed) Comment on above: Apply 1 Patch as dir ected every 72 hours. Apply patch to skin behind ear 4hrs prior to travel. traMADol hydrochloride 50 mg oral tablet (11 sources) Opioid Agonist Start: 2022 End: 2022 take 1 tablet by mouth twice daily as needed for pain Tramadol 50 mg tablet Discontinued 50 mg PO TWICE A DAY as needed for pain 20 10 0 November 01, 2022 1:00am November 10, 2022 1:00am November 11, 2022 1:05am Fracture of left patella Unspecified fracture of left patella, initial encounter for closed fracture 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 mg oral tablet (20 sources) Bile Acid Start: 2021 End: 2021 Ursodiol 250 mg tablet Discontinued 250 mg PO TWICE A DAY February 26, 2022 1:00pm September 25, 2022 10:35am biliary cirrhosis ninety day fill, take two times a day Start: 07-24-2021 End: 02-09-2025 take 1 tablet by mouth twice daily 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 MG tablet Take 1 tablet by mouth 2 times daily. 07/26/2021 Active Comment on above: Take 250 mg by mouth twice daily. Problems Active Problems Problem Classification Problem Date Documented Da te Episodic/Chronic Abdominal pain (3 sources) Generalized abdominal pain; Translations: [Generalized abdominal pain] 07-29-2025 Episodic Cardiac dysrhythmias (20 sources) Paroxysmal atrial fibrillation; Translations: [Paroxysmal atrial fibrillation] Onset: 7 Resolved: 7 Chronic Comment on above: RFA ablation [facility] 3/ 019 Chronic kidney disease (20 sources) Chronic kidney disease stage 3B ; Translations: [Stage 3b chronic kidney disease (HCC)] Onset: 1 Chronic Chronic kidney disease (1 source) Chronic kidney disease; Translations: [Stage 3b chronic kidney disease (HCC)] Onset: 1 Coagulation and hemorrhagic disorders (20 sources) Thrombocytopenia, unspecified; Translations: [Platelet count below reference range] Onset: 9 Chronic Deficiency and other anemia (20 sources) Iron deficiency anemia due to blood loss; Translations: [Iron deficiency anemia secondary to blood loss (chronic)] Onset: 8 Chronic Deficiency and other anemia (1 source) Iron deficiency anemia secondary to blood loss (chronic); Translations: [Iron deficiency anemia due to chronic blood loss] Onset: 1 Chronic Deficiency and other anemia (20 sources) Anemia; Translations: [Other specified anemias] Onset: 4 04-03-2024 Episodic Comment on above: CURRENTLY Deficiency and other anemia (1 source) Anemia, unspecified; Translations: [Anemia, unspecified] Onset: 5 Episodic Diabetes mellitus with complications (20 sources) Type 2 diabetes mellitus; Translations: [Type 2 diabetes mellitus with diabetic chronic kidney disease] Onset: 7 Chronic Diabetes mellitus without complication (18 sources) Diabetes mellitus; Translations: [Type 2 diabetes mellitus without complications] Onset: 5 05-28-2022 Chronic Comment on above: ON MED Diabetes mellitus without complication (1 source) Diabetes mellitus without complication; Translations: [Type 2 diabetes mellitus with stage 3b chronic kidney disease, without long-term current use of insulin ([facility])] Onset: 2 Diseases of white blood cells (20 sources) Decreased white blood cell count, unspecified; Translations: [Leukopenia] Onset: 9 Chronic Disorders of lipid metabolism (20 sources) Other hyperlipidemia; Translations: [Mixed hyperlipidemia] Onset: 9 Resolved: 4 Chronic Esophageal disorders (20 sources) Esophageal varices; Translations: [Esophageal varices without bleeding] Onset: 4 09-25-2022 Chronic Esophageal disorders (2 sources) Anitra-Jackson tear; Translations: [Gastro-esophageal laceration-hemorrhage syndrome] 07-23-2024 Episodic Essential hypertension (20 sources) Essential (primary) hypertension; Translations: [Benign essential hypertension] Onset: 3 Chronic Comment on above: CONTROLLED ON MED Fracture of lower limb (20 sources) Unspecified fracture of left patella, initial encounter for closed fracture; Translations: [Closed fracture of patella] Onset: 3 Resolved: 3 10-25-2022 Episodic Fracture of lower limb (1 source) Closed fracture of fifth metatarsal bone; Translations: [Nondisplaced fracture of fifth metatarsal bone, right foot, initial encounter for closed fracture] 11-09-2024 Episodic Gastroduodenal ulcer (except hemorrhage) (20 sources) Multiple gastric ulcers; Translations: [Gastric ulcer, unspecified as acute or chronic, without hemorrhage or perforation] Onset: 1 07-24-2021 Chronic Gastrointestinal hemorrhage (20 sources) Acute upper gastrointestinal hemorrhage; Translations: [Gastrointestinal hemorrhage, unspecified] 08-01-2021 Episodic Genitourinary symptoms and ill-defined conditions (2 sources) Increased frequency of urination; Translations: [Frequency of micturition] Episodic Heart valve disorders (20 sources) Nonrheumatic mitral (valve) insufficiency; Translations: [Mitral valve regurgitation] Onset: 7 07-24-2021 Chronic Hepatitis (20 sources) Nonalcoholic steatohepatitis; Translations: [Nonalcoholic steatohepatitis (SANCHEZ)] Onset: 1 Chronic Immunizations and screening for infectious disease (2 sources) Vaccination needed; Translations: [Encounter for immunization] Episodic Menopausal disorders (1 source) Primary ovarian failure; Translations: [Other primary ovarian failure] Chronic Other aftercare (16 sources) Drug therapy finding; Translations: [nursing home (current) use of anticoagulants] 08-01-2021 Episodic Other connective tissue disease (2 sources) Pain in right foot; Translations: [Pain in right foot] 11-09-2024 Episodic Other gastrointestinal disorders (16 sources) Diarrhea; Translations: [Diarrhea, unspecified] 09-25-2022 Episodic Other gastrointestinal disorders (3 sources) Diarrhea, unspecified; Translations: [Diarrhea] 11-29-2022 Episodic Other gastrointestinal disorders (1 source) Other ascites; Translations: [Other ascites] Onset: 5 Episodic Other liver diseases (20 sources) Cirrhosis - non-alcoholic; Translations: [Unspecified cirrhosis of liver] Onset: 1 07-24-2021 Chronic Other liver diseases (20 sources) Cirrhosis of liver; Translations: [Unspecified cirrhosis of liver] Onset: 2 09-25-2022 Chronic Other liver diseases (16 sources) Unspecified cirrhosis of liver; Translations: [Cirrhosis of liver without mention of alcohol] Onset: 3 Chronic Other lower respiratory disease (1 source) Dry cough; Translations: [Persistent dry cough] 08-04-2024 Episodic Other lower respiratory disease (3 sources) Dyspnea on exertion; Translations: [Other forms of dyspnea] 02-08-2025 Episodic Other lower respiratory disease (1 source) Other forms of dyspnea; Translations: [Other forms of dyspnea] Onset: 5 Episodic Other nutritional; endocrine; and metabolic disorders (2 sources) Hypercalcemia; Translations: [Hypercalcemia] 05-28-2023 Chronic Other nutritional; endocrine; and metabolic disorders (1 source) Hypercalcemia; Translations: [Hypercalcemia] Onset: 5 Chronic Pulmonary heart disease (20 sources) Secondary pulmonary hypertension; Translations: [Pulmonary hypertension, secondary] Onset: 7 07-24-2021 Chronic Residual codes; unclassified (5 sources) Edema; Translations: [Edema, unspecified] 02-11-2024 Episodic Thyroid disorders (20 sources) Acquired hypothyroidism; Translations: [Hypothyroidism, unspecified] Onset: 4 04-03-2024 Chronic Unclassified (1 source) Unknown / UNK(Unknown) Onset: 7 Unclassified (1 source) Bowel Prep Onset: 5 07-29-2025 Past or Other Problems Problem Classification Problem Date Documented Da te Episodic/Chronic Administrative/social admission (20 sources) Advance directive discussed with patient; Translations: [Other specified counseling] Onset: 03-08-2022 Episodic Anxiety disorders (20 sources) Anxiety; Translations: [Anxiety disorder, unspecified] Onset: 06-30-2009 Resolved: 03-03-2016 03-03-2016 Chronic Calculus of urinary tract (20 sources) Kidney stone; Translations: [Calculus of kidney] Onset: 09-29-2022 Episodic Deficiency and other anemia (1 source) Other specified anemias; Translations: [Anemia due to other cause, not classified] Onset: 04-03-2024 Episodic Gastrointestinal hemorrhage (20 sources) Bleeding esophageal varices; Translations: [Secondary esophageal varices with bleeding] Onset: 07-24-2021 Resolved: 08-04-2024 07-24-2021 Chronic Nutritional deficiencies (20 sources) Deficiency of macronutrients; Translations: [Mild protein-calorie malnutrition] Onset: 04-03-2024 Resolved: 08-04-2024 04-03-2024 Chronic Nutritional deficiencies (20 sources) Deficiency of other specified B group vitamins; Translations: [Cobalamin deficiency] Onset: 12-24-2018 Episodic Other aftercare (20 sources) Long-term current use of anticoagulant; Translations: [nursing home (current) use of anticoagulants] Onset: 01-22-2017 07-31-2021 Episodic Other aftercare (1 source) Other extermination supervisor (current) drug therapy; Translations: [Medication management] Onset: 03-24-2024 Episodic Other connective tissue disease (1 source) Pain in right foot; Translations: [Foot pain, right] Onset: 11-09-2024 Episodic Other nutritional; endocrine; and metabolic disorders (1 source) Abnormal weight loss; Translations: [Abnormal weight loss] Onset: 02-10-2025 Episodic Other screening for suspected conditions (not mental disorders or infectious disease) (20 sources) Patient encounter status; Translations: [Encounter for screening for osteoporosis] Onset: 03-24-2024 Episodic Otitis media and related conditions (2 sources) Dysfunction of left eustachian tube; Translations: [Unspecified Eustachian tube disorder, left ear] Onset: 04-06-2025 04-06-2025 Episodic Residual codes; unclassified (20 sources) Active living will ; Translations: [Other specified health status] Onset: 03-08-2022 Episodic Residual codes; unclassified (20 sources) Bilateral lower limb edema; Translations: [Localized edema] Onset: 04-03-2024 04-03-2024 Episodic Residual codes; unclassified (1 source) Localized edema; Translations: [Bilateral leg edema] Onset: 04-03-2024 Episodic Screening and history of mental health and substance abuse codes (2 sources) Encounter for screening for depression; Translations: [Encounter for screening examination for other mental health and behavioral disorders] Onset: 04-06-2025 Episodic Spondylosis; intervertebral disc disorders; other back problems (20 sources) Neck pain; Translations: [Cervicalgia] Onset: 06-30-2009 Resolved: 12-29-2015 12-29-2015 Episodic Results Test Name Value Interpretation Reference Range Facility Abdomen Limitedon 09-06-2025 Abdomen Limited [facility] [address] [place], [place] [address] Abdomen Limited MR#: [id number] Acct: [id number] Name: ROBBIN MORSE Rep #: [id number] : 1955 F 69 From: Hans hinds MD PCP: Dr. Billy Culp MD Status: REG CLI Study: Abdomen Limited Date of Exam: 09/06/25 Exam# [id number] Ordering Dr: AMERICA MCCLURE MD PROCEDURE: ABDOMEN LIMITED 09/06/2025 REASON FOR EXAM: RUQ PAIN TECHNIQUE: Procedure Code: USABDL Modality: US Procedure: ABDOMEN LIMITED COMPARISON: January 29, 2025. FINDINGS: Liver: Diffusely echogenic suggesting fatty infiltration. Gallbladder: Surgically absent. Common bile duct: Normal measuring 2.7 mm . Pancreas: Normal Other: Visualized portions of the right kidney are unremarkable. Incidental note is made of ascites and 4 quadrants of the abdomen more prominent in the left lower quadrant. US/Abdomen Limited IMPRESSION: Diffuse fatty infiltration of the liver. Ascites. Reading Location: [place] [address] CC: Dr. Billy Culp MD; AMERICA MCCLURE MD Help Desk Coordinator: Signed Normal [facility] Basic Metabolic Profile (BMP )on 08-06-2025 BUN/CRE 15.9 RATIO Normal 08-16 [facility] Comment on above: Performed By: #### L 500.2500 ####[facility] [address] [place], [place], [address] Calcium [Mass/Vol] 9.8 mg/dL Normal 7.6-11.[address] [facility] Comment on above: Performed By: #### L 500.2500 ####[facility] [address] [place], [address] Chloride [Moles/Vol] 100 mmol/L Normal 98-108 [facility] Comment on above: Performed By: #### L 500.2500 ####[facility] [address] [place], [address] CO2 [Moles/Vol] 23.6 mmol/L Normal 21.0-32.0 [facility] Comment on above: Performed By: #### L 500.2500 ####[facility] [address] [place], [address] Creatinine [Mass/Vol] 1.48 mg/dL High 0.70-1.20 [facility] [place] [facility] Comment on above: Performed By: #### L 500.2500 ####[facility] [address] [place], [address] GAP 11 Normal 5-15 [facility] Comment on above: Performed By: #### L 500.2500 ####[facility] [address] [place], [address] GFR/1.73 sq M.predicted among non-blacks MDRD (S/P/Bld) [Vol rate/Area] 38 mL/min/{1.73_m2} Low >60 [facility] Comment on above: Result Comment: mL/m in/1.73m2 CKD-EPI Creatinine Equation (2020) Performed By: #### L 500.2500 ####[facility] [address] [place], [address] Glucose [Mass/Vol] 163 mg/dL High 70-[address] [facility] Comment on above: Performed By: #### L 500.2500 ####[facility] [address] [place], [address] Potassium [Moles/Vol] 4.1 mmol/L Normal 3.3-5.1 [facility] [place] [facility] Comment on above: Performed By: #### L 500.2500 ####[facility] [address] [place], [address] Sodium [Moles/Vol] 134 mmol/L Normal 133-[address] [facility] Comment on above: Performed By: #### L 500.2500 ####[facility] [address] [place], [address] Urea nitrogen [Mass/Vol] 24 mg/dL High - [facility] Comment on above: Performed By: #### L 500.2500 ####[facility] [address] [place], [address] Anion gap in Serum or Plasma Ordered By: Stanley Garcia on 06-17-2025 Anion gap [Moles/Vol] 11 mmol/L 03-11 [facility] [place] [facility] BUN/creatinine ratioOrdered By: Stanley Garcia on 06-17-2025 Urea nitrogen/Creatinine [Mass ratio] 16.9 mg/mg 08-16 [facility] Basic Metabolic Profile (BMP )on 06-17-2025 BUN/CRE 16.9 RATIO Normal 08-16 [facility] Comment on above: Performed By: #### L 501.2300, L501.5200, L500.2500 ####[facility] [address] [place], [address] Calcium [Mass/Vol] 10.3 mg/dL Normal 7.6-11.[address] [facility] Comment on above: Performed By: #### L 501.2300, L501.5200, L500.2500 ####[facility] [address] [place], [address] Chloride [Moles/Vol] 104 mmol/L Normal 98-108 [facility] Comment on above: Performed By: #### L 501.2300, L501.5200, L500.2500 ####[facility] [address] [place], [address] CO2 [Moles/Vol] 19.3 mmol/L Low 21.0-32.0 [facility] Comment on above: Performed By: #### L 501.2300, L501.5200, L500.2500 ####[facility] [address] [place], [address] Creatinine [Mass/Vol] 1.27 mg/dL High 0.70-1.20 [facility] [place] [facility] Comment on above: Performed By: #### L 501.2300, L501.5200, L500.2500 ####[facility] [address] [place], [address] GAP 11 Normal 5-15 [facility] Comment on above: Performed By: #### L 501.2300, L501.5200, L500.2500 ####[facility] [address] [place], [address] GFR/1.73 sq M.predicted among non-blacks MDRD (S/P/Bld) [Vol rate/Area] 46 mL/min/{1.73_m2} Low >60 [facility] Comment on above: Result Comment: mL/m in/1.73m2 CKD-EPI Creatinine Equation (2020) Performed By: #### L 501.2300, L501.5200, L500.2500 ####[facility] [address] [place], [address] Glucose [Mass/Vol] 114 mg/dL High 70-[address] [facility] Comment on above: Performed By: #### L 501.2300, L501.5200, L500.2500 ####[facility] [address] [place], [address] Potassium [Moles/Vol] 4.7 mmol/L Normal 3.3-5.1 [facility] [place] [facility] Comment on above: Performed By: #### L 501.2300, L501.5200, L500.2500 ####[facility] [address] [place], [address] Sodium [Moles/Vol] 135 mmol/L Normal 133-[address] [facility] Comment on above: Performed By: #### L 501.2300, L501.5200, L500.2500 ####[facility] [address] [place], [address] Urea nitrogen [Mass/Vol] 21 mg/dL High 4-19 [facility] Comment on above: Performed By: #### L 501.2300, L501.5200, L500.2500 ####[facility] [address] [place], [address] Carbon dioxide, total [Moles /volume] in Central venous bloodOrdered By: Stanley Garcia on 06-17-2025 CO2 [Moles/Vol] 19.3 mmol/L Low 21.0-32.0 [facility] Chloride assayOrdered By: Carolina Garcia on 06-17-2025 Chloride [Moles/Vol] 104 mmol/L 98-108 [facility] Gastroenterology Visit Repor ton 06-17-2025 Gastroenterology Visit Report [facility] [address] [place] [address] OFFICE VISIT Date of Service: 06/17/25 MR#: [id number] Acct: [id number] Name: ROBBIN MORSE Rep #: [id number] : 1955 Provider: Dr. Stanley burns MD Age/Sex: 69/F [place] [facility] [place] Status: Signed with Addenda ADDENDUM by Dr. Stanley Garcia MD on 06/17/25 at 1428 Addendum Patient is stated that she had DEXA scan done by PCP Dr. Culp. It was negative for osteoporosis. She is on vitamin D3 supplement. Advised to take calcium phosphate 1 tablet 2-3 times daily. 06/17/25 1428 Date Stanley Garcia MD cc: Dr. Billy Culp MD * Signed Intake Vital Signs 02/09/25 15:28 06/17/25 13:35 Height 5 ft 1 in 5 ft 1 in Weight: 126 lb 129 lb BMI 23.8 24.3 BP 121/75 H 128/72 H Blood Pressure Location Rt brachial Lt brachial Position Sitting Sitting Pulse 74 77 Pulse Oximetry (%) 98 96 Oxygen Delivery Method room air room air Intake Visit Reasons: 4 M FU Chief Complaint: 4 mo f/u Allergies diltiazem (From Cardizem) Adverse Reaction (Intermediate, Verified 02/08/25 10:52) elevates glucose sitagliptin (From Januvia) Adverse Reaction (Intermediate, Verified 02/08/25 10:52) CP/SOB pioglitazone (From Actos) Adverse Reaction (Verified 02/08/25 10:52) Swelling Bykhehd-OGH-XfP Reductase Inhibitor (Hqvoswe-Syu-Ctd Reductase Inhibitor) Adverse Reaction (Verified 02/08/25 10:52) MAKES MY LEGS ACHE Have you fallen in the past year?: No PFSH Medical History Cataract (lens) fragments in eye following cataract surgery, bilateral Chronic kidney disease (CKD) Difficult intravenous access Wears glasses History of GI bleed History of ulceration Non-smoker Shortness of breath on exertion History of echocardiogram Cardiology follow-up encounter History of rheumatic fever Esophageal varices Renal insufficiency Vitamin B 12 deficiency Pulmonary HTN Rheumatic mitral insufficiency Hyperlipidemia Essential hypertension Acquired thrombocytopenia Diarrhea Anemia Bleeding tendency Post-menopausal Restless legs History of stress test Irregular heartbeat Thrombocytopenia Cirrhosis Acute on chronic blood loss anemia Diabetes Atrial fibrillation Surgical History History of bilateral cataract extraction ( 08/2023) History of colonoscopy S/P ablation of atrial fibrillation History of cholecystectomy History of History of esophagogastroduodenoscopy (EGD) History of prior ablation treatment Family History Father No problems noted. Social History Smoking Status: Never smoker alcohol intake: never substance use type: does not use caffeine: Yes what type of physical activity do you participate in: walking frequency: 3-4 times per week HPI HPI Chief Complaint: 4 mo f/u Details: ROBBIN MORSE, is a 69 F who presents to the office today for follow up. *[facility] hospitalization 07.22.21-07.24.21. [facility] ED with hematemesis in the setting of Xarelto with a hemoglobin of 7.6. Gastroenterology consulted and EGD performed with findings as below. During hospitalization a new diagnosis of liver cirrhosis r/t SANCHEZ was found. Bloodwork for autoimmune labs, autoimmune hepatitis, Paul???s disease and liver cancer tumor marker were within normal limits. EGD 07.22.21 2 columns of nonbleeding grade 2 esophageal varices in the lower third of the esophagus with 4 bleeding angiodysplastic lesions in the anterior wall of the gastric body and 2 bleeding angiodysplastic lesions in the duodenum. US 07.22.21 hepatic measurement 13.7cm with coarse echotexture with microlobulated contours. EGD 07.24.21 found erythematous mucosa of the stomach and nonbleeding gastric ulcers with no stigmata of recent bleeding as well as duodenitis and chronic gastritis with portal hypertensive gastropathy. Esophageal banding performed for grade II esophageal varices. OV 08.09.21 start colestipol, continue protonix and ursodiol. OV 11.06.21 Continues with PPI and ursodiol; not taking lactulose. CT abd/pel 11.17.21 found diffuse contour of the liver consistent with cirrhotic changes and diffuse fatty infiltration of the liver. Small amount of fluid in keeping with ascites. Dilation of proximal common bile duct with transverse dimension of 1.6cm. Mild splenomegaly. Varicosities seen in splenic hilum. Small hiatal hernia. Diverticulosis. US abd and elastography 11.20.21 with liver measurement 13.5cm with heterogeneous echogenicity of the liver with a stiffness of 18 kPa compatible with F4. EGD 2.16. (more content not included)... Normal [facility] Glomerular filtration rate ( GFR) estimation/1.73 sq m using serum, plasma, or whole bOrdered By: Stanley Garcai on 06-17-2025 GFR/1.73 sq M.predicted among non-blacks MDRD (S/P/Bld) [Vol rate/Area] 46 mL/min/{1.73_m2} Low >60 [facility] Comment on above: mL/min/1.73m2 CKD-EP I Creatinine Equation (2020) Magnesiumon 06-17-2025 Magnesium [Mass/Vol] 2.0 mg/dL Normal 1.5-2.2 [facility] Comment on above: Performed By: #### L 501.2300, L501.5200, L500.2500 ####[facility] [address] [place], [place], [id number] Magnesium measurement (mass/ volume)Ordered By: Stanley Garcia on 06-17-2025 Magnesium (Unsp spec) [Mass/Vol] 2.0 mg/dL 1.5-2.2 [facility] Phosphoruson 06-17-2025 Phosphate [Mass/Vol] 2.5 mg/dL Low 2.7-4.5 [facility] Comment on above: Performed By: #### L 501.2300, L501.5200, L500.2500 ####[facility] [address] [place], [place], [id number] Potassium measurement (mass/ volume)Ordered By: Stanley Garcia on 06-17-2025 Potassium (Unsp spec) [Mass/Vol] 4.7 mmol/L 3.3-5.1 [facility] Serum creatinine measurement (mass/volume)Ordered By: Stanley Garcia on 06-17-2025 Creatinine [Mass/Vol] 1.27 mg/dL High 0.70-1.20 [facility] [place] [facility] Serum glucose measurement (m ass/volume)Ordered By: Stanley Garcia on 06-17-2025 Glucose [Mass/Vol] 114 mg/dL High 70-[address] [facility] Serum or plasma calcium tabatha urement (mass/volume)Ordered By: Stanley Garcia on 06-17-2025 Calcium [Mass/Vol] 10.3 mg/dL 7.6-11.[address] [facility] Serum or plasma urea nitroge n measurement (mass/volume)Ordered By: Stanley Garcia on 06-17-2025 Urea nitrogen [Mass/Vol] 21 mg/dL High 4-19 [facility] Sodium levelOrdered By: Rosario Garcia on 06-17-2025 Sodium [Moles/Vol] 135 mmol/L 133-145 [facility] AFP, Tumor Markeron 06-09-20 25 AFP TUMOR MICHAEL 7.2 ng/mL Normal 0.0-9.2 [facility] Comment on above: Order Comment: N Result Comment: [employer] Electrochemiluminescence Immunoassay (ECLIA) Values obtained with different assay methods or kits cannot be used interchangeably. Results cannot be interpreted as absolute evidence of the presence or absence of malignant disease. This test is not interpretable in females. Performed at: [address] [id number] Water Meter Installer: Onur Camargo PhD, Phone: [phone] Performed By: #### L 501.6710, L500.4050, L300.3900, L100.0100, L3890.6202, L501.4700, L503.5510, L500.4100, L501.9985, L501.9520, L503.0106, L3300.0700, L506.0400, L503.6030, L503.6550 ####[facility] [address] [place], [address] Absolute lymphocyte countOrd ered By: Stanley Garcia on 06-08-2025 Lymphocytes Auto (Unsp spec) [#/Vol] 0.54 10*3/uL Low 0.83-4.51 [facility] Absolute neutrophil countOrd ered By: Stanley Garcia on 06-08-2025 Neutrophils (Bld) [#/Vol] 3.2 10*3/uL 2.0-7.7 [facility] Ammoniaon 06-08-2025 Ammonia (P) [Moles/Vol] 41.2 umol/L Normal 11 [facility] Comment on above: Performed By: #### L 501.6710, L500.4050, L300.3900, L100.0100, L3890.6202, L501.4700, L503.5510, L500.4100, L501.9985, L501.9520, L503.0106, L3300.0700, L506.0400, L503.6030, L503.6550 #### [facility] [address] [place], [address] Anion gap in Serum or Plasma Ordered By: Stanley Garcia on 06-08-2025 Anion gap [Moles/Vol] 12 mmol/L 5-15 [facility] [place] [facility] Automated lymphocyte count a s percentage of total leukocytesOrdered By: Stanley Garcia on 06-08-2025 Lymphocytes/100 WBC Auto (Unsp spec) 12.5 % Low 19-41 [facility] BUN/creatinine ratioOrdered By: Stanley Garcia on 06-08-2025 Urea nitrogen/Creatinine [Mass ratio] 18.3 mg/mg 10-20 [facility] Basophil percentageOrdered B y: Stanley Garcia on 06-08-2025 Basophils/100 WBC (Bld) 0.7 % 0-1 [facility] Bilirubin directOrdered By: Stanley Garcia on 06-08-2025 Bilirubin.direct [Mass/Vol] 0.43 mg/dL High 0.00-0.30 [facility] Bilirubin, Directon 06-08-20 25 Bilirubin.direct [Mass/Vol] 0.43 mg/dL High 0.00-0.30 [facility] Comment on above: Performed By: #### L 501.6710, L500.4050, L300.3900, L100.0100, L3890.6202, L501.4700, L503.5510, L500.4100, L501.9985, L501.9520, L503.0106, L3300.0700, L506.0400, L503.6030, L503.6550 ####[facility] [address] [place], [place], [phone] Bilirubin, totalOrdered By: Stanley Garcia on 06-08-2025 Bilirubin [Mass/Vol] 0.98 mg/dL 0.00-1.30 [facility] CBC W/Diff, Automatedon 05-28 Absolute Lymph 0.54 X10 3/uL Low 0.83-4.51 [facility] Comment on above: Performed By: #### L 501.6710, L500.4050, L300.3900, L100.0100, L3890.6202, L501.4700, L503.5510, L500.4100, L501.9985, L501.9520, L503.0106, L3300.0700, L506.0400, L503.6030, L503.6550 #### [facility] [address] [place], [place], [phone] ([phone] Absolute Neut 3.2 X10 3/uL Normal 2.0-7.7 [facility] Comment on above: Performed By: #### L 501.6710, L500.4050, L300.3900, L100.0100, L3890.6202, L501.4700, L503.5510, L500.4100, L501.9985, L501.9520, L503.0106, L3300.0700, L506.0400, L503.6030, L503.6550 #### [facility] [address] [place], [place], [phone] ([phone] Basophils/100 WBC (Bld) 0.7 % Normal 0-1 [facility] Comment on above: Performed By: #### L 501.6710, L500.4050, L300.3900, L100.0100, L3890.6202, L501.4700, L503.5510, L500.4100, L501.9985, L501.9520, L503.0106, L3300.0700, L506.0400, L503.6030, L503.6550 #### [facility] [address] [place], [address] Eosinophils/100 WBC (Bld) 3.7 % Normal 0-5 [facility] Comment on above: Performed By: #### L 501.6710, L500.4050, L300.3900, L100.0100, L3890.6202, L501.4700, L503.5510, L500.4100, L501.9985, L501.9520, L503.0106, L3300.0700, L506.0400, L503.6030, L503.6550 #### [facility] [address] [place], [address] (917) Erythrocyte distribution width (RBC) [Ratio] 13.2 % Normal 11.6-14.6 [facility] Comment on above: Performed By: #### L 501.6710, L500.4050, L300.3900, L100.0100, L3890.6202, L501.4700, L503.5510, L500.4100, L501.9985, L501.9520, L503.0106, L3300.0700, L506.0400, L503.6030, L503.6550 #### [facility] [address] [place], [address] (416) Hematocrit (Bld) [Volume fraction] 27.1 % Low 37-47 [facility] Comment on above: Performed By: #### L 501.6710, L500.4050, L300.3900, L100.0100, L3890.6202, L501.4700, L503.5510, L500.4100, L501.9985, L501.9520, L503.0106, L3300.0700, L506.0400, L503.6030, L503.6550 #### [facility] [address] [place], [address] (783) Hemoglobin (Bld) [Mass/Vol] 9.4 g/dL Low 12.0-15.0 [facility] Comment on above: Performed By: #### L 501.6710, L500.4050, L300.3900, L100.0100, L3890.6202, L501.4700, L503.5510, L500.4100, L501.9985, L501.9520, L503.0106, L3300.0700, L506.0400, L503.6030, L503.6550 #### [facility] [address] [place], [place], [phone] ([phone] IG% 0.200 Normal 0.0-0.9 [facility] Comment on above: Result Comment: IG% - Immature Granulocytes (promyelocytes, myelocytes and metamyelocytes) > 1% indicates that a LEFT SHIFT is Present. Performed By: #### L 501.6710, L500.4050, L300.3900, L100.0100, L3890.6202, L501.4700, L503.5510, L500.4100, L501.9985, L501.9520, L503.0106, L3300.0700, L506.0400, L503.6030, L503.6550 #### [facility] [address] [facility] [place], [address] Lymphocytes/100 WBC (Bld) 12.5 % Low 19-41 [facility] Comment on above: Performed By: #### L 501.6710, L500.4050, L300.3900, L100.0100, L3890.6202, L501.4700, L503.5510, L500.4100, L501.9985, L501.9520, L503.0106, L3300.0700, L506.0400, L503.6030, L503.6550 #### [facility] [address] [place], [address] MCH (RBC) [Entitic mass] 34.8 pg High 27.0-32.0 [facility] Comment on above: Performed By: #### L 501.6710, L500.4050, L300.3900, L100.0100, L3890.6202, L501.4700, L503.5510, L500.4100, L501.9985, L501.9520, L503.0106, L3300.0700, L506.0400, L503.6030, L503.6550 #### [facility] [address] [place], [address] MCHC (RBC) [Mass/Vol] 34.7 g/dL Normal 32-36 [facility] [place] [facility] Comment on above: Performed By: #### L 501.6710, L500.4050, L300.3900, L100.0100, L3890.6202, L501.4700, L503.5510, L500.4100, L501.9985, L501.9520, L503.0106, L3300.0700, L506.0400, L503.6030, L503.6550 #### [facility] [address] [place], [address] MCV (RBC) [Entitic vol] 100.4 fL High 81-99 [facility] Comment on above: Performed By: #### L 501.6710, L500.4050, L300.3900, L100.0100, L3890.6202, L501.4700, L503.5510, L500.4100, L501.9985, L501.9520, L503.0106, L3300.0700, L506.0400, L503.6030, L503.6550 #### [facility] [address] [place], [place], [phone] (819) Monocytes/100 WBC (Bld) 9.5 % Normal 0-10 [facility] Comment on above: Performed By: #### L 501.6710, L500.4050, L300.3900, L100.0100, L3890.6202, L501.4700, L503.5510, L500.4100, L501.9985, L501.9520, L503.0106, L3300.0700, L506.0400, L503.6030, L503.6550 #### [facility] [address] [facility] [place], [address] Neutrophils/100 WBC (Bld) 73.4 % High 47-70 [facility] Comment on above: Performed By: #### L 501.6710, L500.4050, L300.3900, L100.0100, L3890.6202, L501.4700, L503.5510, L500.4100, L501.9985, L501.9520, L503.0106, L3300.0700, L506.0400, L503.6030, L503.6550 #### [facility] [address] [place], [place], [phone] (590) Nucleated RBC (Bld) [#/Vol] 0 10*3/uL Normal 0-5 [facility] Comment on above: Performed By: #### L 501.6710, L500.4050, L300.3900, L100.0100, L3890.6202, L501.4700, L503.5510, L500.4100, L501.9985, L501.9520, L503.0106, L3300.0700, L506.0400, L503.6030, L503.6550 #### [facility] [address] [facility] [place], [address] Platelet mean volume (Bld) [Entitic vol] 10.7 fL Normal 6.2-12.0 [facility] Comment on above: Performed By: #### L 501.6710, L500.4050, L300.3900, L100.0100, L3890.6202, L501.4700, L503.5510, L500.4100, L501.9985, L501.9520, L503.0106, L3300.0700, L506.0400, L503.6030, L503.6550 #### [facility] [address] [place], [place], [phone] (315) Platelets (Bld) [#/Vol] 53 10*3/uL Low 150-450 [facility] Comment on above: Performed By: #### L 501.6710, L500.4050, L300.3900, L100.0100, L3890.6202, L501.4700, L503.5510, L500.4100, L501.9985, L501.9520, L503.0106, L3300.0700, L506.0400, L503.6030, L503.6550 #### [facility] [address] [place], [place], [address] (634) RBC (Bld) [#/Vol] 2.70 10*6/uL Low 4.2-5.4 [facility] Comment on above: Performed By: #### L 501.6710, L500.4050, L300.3900, L100.0100, L3890.6202, L501.4700, L503.5510, L500.4100, L501.9985, L501.9520, L503.0106, L3300.0700, L506.0400, L503.6030, L503.6550 #### [facility] [address] [place], [place], [phone] (441) RDW SD 48.0 fl High 35.1-43.9 [facility] Comment on above: Performed By: #### L 501.6710, L500.4050, L300.3900, L100.0100, L3890.6202, L501.4700, L503.5510, L500.4100, L501.9985, L501.9520, L503.0106, L3300.0700, L506.0400, L503.6030, L503.6550 #### [facility] [address] [facility]. [place], [place], [phone] WBC (Bld) [#/Vol] 4.3 10*3/uL Low 4.4-11.[address] [facility] Comment on above: Performed By: #### L 501.6710, L500.4050, L300.3900, L100.0100, L3890.6202, L501.4700, L503.5510, L500.4100, L501.9985, L501.9520, L503.0106, L3300.0700, L506.0400, L503.6030, L503.6550 #### [facility] [address] [place], [place], [phone] CRPon 06-08-2025 C-REACTIVE PROT 6.87 mg/L High 0.0-3.0 [facility] Comment on above: Performed By: #### L 501.6710, L500.4050, L300.3900, L100.0100, L3890.6202, L501.4700, L503.5510, L500.4100, L501.9985, L501.9520, L503.0106, L3300.0700, L506.0400, L503.6030, L503.6550 ####[facility] [address] [place], [place], [phone] Calculated very low density lipoprotein (VLDL) cholesterol measurementOrdered By: Stanley Garcia on 06-08-2025 Calculated very low density lipoprotein (VLDL) cholesterol measurement 17 mg/dL 5-40 [facility] Carbon dioxide, total [Moles /volume] in Central venous bloodOrdered By: Stanley Garcia on 06-08-2025 CO2 [Moles/Vol] 22.5 mmol/L 21.0-32.0 [facility] Chloride assayOrdered By: Carolina Garcia on 06-08-2025 Chloride [Moles/Vol] 100 mmol/L 98-108 [facility] Comprehensive Metabolic Prof ilon 06-08-2025 Albumin [Mass/Vol] 3.7 g/dL Normal 3.4-4.[address] [facility] Comment on above: Performed By: #### L 501.6710, L500.4050, L300.3900, L100.0100, L3890.6202, L501.4700, L503.5510, L500.4100, L501.9985, L501.9520, L503.0106, L3300.0700, L506.0400, L503.6030, L503.6550 ####[facility] [address] [place], [place], [phone] Albumin/Globulin [Mass ratio] 1.0 {ratio} Normal 0.9-2.4 [facility] Comment on above: Performed By: #### L 501.6710, L500.4050, L300.3900, L100.0100, L3890.6202, L501.4700, L503.5510, L500.4100, L501.9985, L501.9520, L503.0106, L3300.0700, L506.0400, L503.6030, L503.6550 ####[facility] [address] [place], [place], [phone] ALK PHOS 100 U/L Normal 35-104 [facility] Comment on above: Performed By: #### L 501.6710, L500.4050, L300.3900, L100.0100, L3890.6202, L501.4700, L503.5510, L500.4100, L501.9985, L501.9520, L503.0106, L3300.0700, L506.0400, L503.6030, L503.6550 ####[facility] [address] [place], [place], [phone] ALT [Catalytic activity/Vol] 30 U/L Normal <=34 [facility] Comment on above: Performed By: #### L 501.6710, L500.4050, L300.3900, L100.0100, L3890.6202, L501.4700, L503.5510, L500.4100, L501.9985, L501.9520, L503.0106, L3300.0700, L506.0400, L503.6030, L503.6550 ####[facility] [address] [place], [place], [phone] AST [Catalytic activity/Vol] 39 U/L High <=31 [facility] Comment on above: Performed By: #### L 501.6710, L500.4050, L300.3900, L100.0100, L3890.6202, L501.4700, L503.5510, L500.4100, L501.9985, L501.9520, L503.0106, L3300.0700, L506.0400, L503.6030, L503.6550 ####[facility] [address] [place], [place], [phone] Bilirubin [Mass/Vol] 0.98 mg/dL Normal 0.00-1.30 [facility] Comment on above: Performed By: #### L 501.6710, L500.4050, L300.3900, L100.0100, L3890.6202, L501.4700, L503.5510, L500.4100, L501.9985, L501.9520, L503.0106, L3300.0700, L506.0400, L503.6030, L503.6550 ####[facility] [address] [place], [address] BUN/CRE 18.3 RATIO Normal 10-20 [facility] Comment on above: Performed By: #### L 501.6710, L500.4050, L300.3900, L100.0100, L3890.6202, L501.4700, L503.5510, L500.4100, L501.9985, L501.9520, L503.0106, L3300.0700, L506.0400, L503.6030, L503.6550 ####[facility] [address] [place], [place], [phone](842) Calcium [Mass/Vol] 10.4 mg/dL Normal 7.6-11.[address] [facility] Comment on above: Performed By: #### L 501.6710, L500.4050, L300.3900, L100.0100, L3890.6202, L501.4700, L503.5510, L500.4100, L501.9985, L501.9520, L503.0106, L3300.0700, L506.0400, L503.6030, L503.6550 ####[facility] [address] [place], [place], [phone] Chloride [Moles/Vol] 100 mmol/L Normal 98-108 [facility] Comment on above: Performed By: #### L 501.6710, L500.4050, L300.3900, L100.0100, L3890.6202, L501.4700, L503.5510, L500.4100, L501.9985, L501.9520, L503.0106, L3300.0700, L506.0400, L503.6030, L503.6550 ####[facility] [address] [place], [place], [phone](106) CO2 [Moles/Vol] 22.5 mmol/L Normal 21.0-32.0 [facility] Comment on above: Performed By: #### L 501.6710, L500.4050, L300.3900, L100.0100, L3890.6202, L501.4700, L503.5510, L500.4100, L501.9985, L501.9520, L503.0106, L3300.0700, L506.0400, L503.6030, L503.6550 ####[facility] [address] [place], [place], [phone] Creatinine [Mass/Vol] 1.53 mg/dL High 0.70-1.20 [facility] [place] [facility] Comment on above: Performed By: #### L 501.6710, L500.4050, L300.3900, L100.0100, L3890.6202, L501.4700, L503.5510, L500.4100, L501.9985, L501.9520, L503.0106, L3300.0700, L506.0400, L503.6030, L503.6550 ####[facility] [address] [place], [place], [phone] GAP 12 Normal 5-15 [facility] Comment on above: Performed By: #### L 501.6710, L500.4050, L300.3900, L100.0100, L3890.6202, L501.4700, L503.5510, L500.4100, L501.9985, L501.9520, L503.0106, L3300.0700, L506.0400, L503.6030, L503.6550 ####[facility] [address] [facility] [address] [place], [place], [phone] GFR/1.73 sq M.predicted among non-blacks MDRD (S/P/Bld) [Vol rate/Area] 37 mL/min/{1.73_m2} Low >60 [facility] Comment on above: Result Comment: mL/m in/1.73m2 CKD-EPI Creatinine Equation (2020) Performed By: #### L 501.6710, L500.4050, L300.3900, L100.0100, L3890.6202, L501.4700, L503.5510, L500.4100, L501.9985, L501.9520, L503.0106, L3300.0700, L506.0400, L503.6030, L503.6550 ####[facility] [address] [place], [address] Globulin (S) [Mass/Vol] 3.7 g/dL Normal 2.2-4.2 [facility] Comment on above: Performed By: #### L 501.6710, L500.4050, L300.3900, L100.0100, L3890.6202, L501.4700, L503.5510, L500.4100, L501.9985, L501.9520, L503.0106, L3300.0700, L506.0400, L503.6030, L503.6550 ####[facility] [address] [place], [address] Glucose [Mass/Vol] 96 mg/dL Normal 70-[address] [facility] Comment on above: Performed By: #### L 501.6710, L500.4050, L300.3900, L100.0100, L3890.6202, L501.4700, L503.5510, L500.4100, L501.9985, L501.9520, L503.0106, L3300.0700, L506.0400, L503.6030, L503.6550 ####[facility] [address] [place], [place], [phone](839) Potassium [Moles/Vol] 4.4 mmol/L Normal 3.3-5.1 [facility] [place] [facility] Comment on above: Performed By: #### L 501.6710, L500.4050, L300.3900, L100.0100, L3890.6202, L501.4700, L503.5510, L500.4100, L501.9985, L501.9520, L503.0106, L3300.0700, L506.0400, L503.6030, L503.6550 ####[facility] [address] [place], [place], [phone](064) Sodium [Moles/Vol] 135 mmol/L Normal 133-[address] [facility] Comment on above: Performed By: #### L 501.6710, L500.4050, L300.3900, L100.0100, L3890.6202, L501.4700, L503.5510, L500.4100, L501.9985, L501.9520, L503.0106, L3300.0700, L506.0400, L503.6030, L503.6550 ####[facility] [address] [place], [place], [phone] T PROT 7.4 g/dL Normal 5.9-8.4 [facility] Comment on above: Performed By: #### L 501.6710, L500.4050, L300.3900, L100.0100, L3890.6202, L501.4700, L503.5510, L500.4100, L501.9985, L501.9520, L503.0106, L3300.0700, L506.0400, L503.6030, L503.6550 ####[facility] [address] [place], [place], [phone] Urea nitrogen [Mass/Vol] 28 mg/dL High 4-19 [facility] Comment on above: Performed By: #### L 501.6710, L500.4050, L300.3900, L100.0100, L3890.6202, L501.4700, L503.5510, L500.4100, L501.9985, L501.9520, L503.0106, L3300.0700, L506.0400, L503.6030, L503.6550 ####[facility] [address] [place], [place], [phone] Eosinophil percentageOrdered By: Stanley Garcia on 06-08-2025 Eosinophils/100 WBC (Bld) 3.7 % 0-5 [facility] Erythrocyte distribution wid th ratioOrdered By: Stanley Garcia on 06-08-2025 Erythrocyte distribution width (RBC) [Ratio] 13.2 % 11.6-14.6 [facility] Erythrocyte distribution wid th standard deviationOrdered By: Stanley Garcia on 06-08-2025 Erythrocyte distribution width (RBC) [Ratio] 48.0 fl High 35.1-43.9 [facility] Ferritinon 06-08-2025 Ferritin [Mass/Vol] 53 ng/mL Normal 22-378 [facility] Comment on above: Performed By: #### L 501.6710, L500.4050, L300.3900, L100.0100, L3890.6202, L501.4700, L503.5510, L500.4100, L501.9985, L501.9520, L503.0106, L3300.0700, L506.0400, L503.6030, L503.6550 ####[facility] [address] [place], [place], [phone] Glomerular filtration rate ( GFR) estimation/1.73 sq m using serum, plasma, or whole bOrdered By: Stanley Garcia on 06-08-2025 GFR/1.73 sq M.predicted among non-blacks MDRD (S/P/Bld) [Vol rate/Area] 37 mL/min/{1.73_m2} Low >60 [facility] Comment on above: mL/min/1.73m2 CKD-EP I Creatinine Equation (2020) Hematocrit Auto (Bld) [Volum e fraction]Ordered By: Stanley Garcia on 06-08-2025 Hematocrit (Bld) [Volume fraction] 27.1 % Low 37-47 [facility] Hemoglobin A1con 06-08-2025 HbA1c (Bld) [Mass fraction] 7.2 % High <=5.6 [facility] Comment on above: Result Comment: Norm al < 5.7 % Prediabetic 5.7 - 6.4 % Diabetic >or= 6.5 % Please note range changes. Performed By: #### L 501.6710, L500.4050, L300.3900, L100.0100, L3890.6202, L501.4700, L503.5510, L500.4100, L501.9985, L501.9520, L503.0106, L3300.0700, L506.0400, L503.6030, L503.6550 #### [facility] [address] [place], [place], [phone] Hemoglobin A1c percentageOrd ered By: Stanley Garcia on 06-08-2025 HbA1c (Bld) [Mass fraction] 7.2 % High <5.7 [facility] Comment on above: Normal < 5.7 % Predi abetic 5.7 - 6.4 % Diabetic >or= 6.5 % Please note range changes. Hemoglobin measurementOrdere d By: Stanley Garcia on 06-08-2025 Hemoglobin (Bld) [Mass/Vol] 9.4 g/dL Low 12.0-15.0 [facility] Hepatitis B Surface Antibody on 06-08-2025 HEP B Surf Ab Non-Reactive Normal [facility] Comment on above: Result Comment: <8.5 mIU/mL: Non-Reactive 8.5<= x <11.5 mIU/mL: Indeterminate >=11.5 mIU/mL: Reactive Non Reactive: Inconsistent with immunity less than <10 mIU/mL Reactive: Consistent with immunity greater than or equal to 10 mIU/mL Performed By: #### L 501.6710, L500.4050, L300.3900, L100.0100, L3890.6202, L501.4700, L503.5510, L500.4100, L501.9985, L501.9520, L503.0106, L3300.0700, L506.0400, L503.6030, L503.6550 #### [facility] [address] [place], [address] Immature granulocytes/100 WB C Auto (Bld)Ordered By: Stanley Garcia on 06-08-2025 Immature granulocytes/100 WBC (Bld) 0.200 % 0.0-0.9 [facility] Comment on above: IG% - Immature Granu locytes (promyelocytes, myelocytes and metamyelocytes) > 1% indicates that a LEFT SHIFT is Present. International normalized rat io (INR) calculationOrdered By: Stanley Garcia on 06-08-2025 INR Coag (Bld) [Relative time] 1.2 {INR} [facility] Iron measurement (mass/mass) Ordered By: Stanley Garcia on 06-08-2025 Iron (Unsp spec) [Mass/Mass] 68 ug/dL 50-170 [facility] Iron+Iron Binding Capacityon 06-08-2025 Iron [Mass/Vol] 68 ug/dL Normal 50-170 [facility] Comment on above: Performed By: #### L 501.6710, L500.4050, L300.3900, L100.0100, L3890.6202, L501.4700, L503.5510, L500.4100, L501.9985, L501.9520, L503.0106, L3300.0700, L506.0400, L503.6030, L503.6550 ####[facility] [address] [place], [place], [id number] IRON SATURATION 20.0 Normal 13-59 [facility] Comment on above: Performed By: #### L 501.6710, L500.4050, L300.3900, L100.0100, L3890.6202, L501.4700, L503.5510, L500.4100, L501.9985, L501.9520, L503.0106, L3300.0700, L506.0400, L503.6030, L503.6550 ####[facility] [address] [place], [place], [id number] TIBC 342 ug/dL Normal 250-450 [facility] Comment on above: Performed By: #### L 501.6710, L500.4050, L300.3900, L100.0100, L3890.6202, L501.4700, L503.5510, L500.4100, L501.9985, L501.9520, L503.0106, L3300.0700, L506.0400, L503.6030, L503.6550 ####[facility] [address] [place], [place], [phone](242) UIBC 274 ug/dL Normal 228-428 [facility] Comment on above: Performed By: #### L 501.6710, L500.4050, L300.3900, L100.0100, L3890.6202, L501.4700, L503.5510, L500.4100, L501.9985, L501.9520, L503.0106, L3300.0700, L506.0400, L503.6030, L503.6550 ####[facility] [address] [place], [place], [phone] LDL calc ser/plasOrdered By: Stanley Garcia on 06-08-2025 Cholesterol in LDL [Mass/Vol] 63 mg/dL [facility] Comment on above: Otngbemilm=290-063 m g/dL & Higher Sarr=830 mg/dL or greaterFriedwald Equation for LDL-C Laboratory - Chemistry and C hemistry - challengeOrdered By: Stanley Garcia on 06-08-2025 AST [Catalytic activity/Vol] 39 U/L High <32 [facility] Lipid Profileon 06-08-2025 CHOL:HDL 2.15 Normal [facility] Comment on above: Performed By: #### L 501.6710, L500.4050, L300.3900, L100.0100, L3890.6202, L501.4700, L503.5510, L500.4100, L501.9985, L501.9520, L503.0106, L3300.0700, L506.0400, L503.6030, L503.6550 ####[facility] [address] [place], [place], [id number] Cholesterol [Mass/Vol] 149 mg/dL Normal <=200 [facility] Comment on above: Result Comment: Chol esterol level, Desirable <200 mg/dL Borderline high cholesterol 200-239 mg/dL High cholesterol >=240 mg/dL Recommendations of the NCEP Adult Treatment Panel for the following risk-cutoff thresholds for the [place] population. Performed By: #### L 501.6710, L500.4050, L300.3900, L100.0100, L3890.6202, L501.4700, L503.5510, L500.4100, L501.9985, L501.9520, L503.0106, L3300.0700, L506.0400, L503.6030, L503.6550 ####[facility] [address] [facility]. [place], [place], [phone] Cholesterol in HDL [Mass/Vol] 69 mg/dL Normal [facility] Comment on above: Result Comment: Xochilt onal Cholesterol Education Program (NCEP) guidelines: <40 mg/dL: Low HDL-cholesterol (major risk factor for CHD) >= 60 mg/dL: High HDL-cholesterol (negative risk factor for CHD) HDL-cholesterol is affected by a number of factors, e.g. smoking, exercise, hormones, sex and age. Performed By: #### L 501.6710, L500.4050, L300.3900, L100.0100, L3890.6202, L501.4700, L503.5510, L500.4100, L501.9985, L501.9520, L503.0106, L3300.0700, L506.0400, L503.6030, L503.6550 ####[facility] [address] [place], [place], [phone] Cholesterol in LDL [Mass/Vol] 63 mg/dL Normal [facility] Comment on above: Result Comment: Bord xwahef=850-386 mg/dL Higher Ysip=506 mg/dL or greater Friedwald Equation for LDL-C Performed By: #### L 501.6710, L500.4050, L300.3900, L100.0100, L3890.6202, L501.4700, L503.5510, L500.4100, L501.9985, L501.9520, L503.0106, L3300.0700, L506.0400, L503.6030, L503.6550 ####[facility] [address] [place], [address] Cholesterol in VLDL [Mass/Vol] 17 mg/dL Normal 5-40 [facility] Comment on above: Performed By: #### L 501.6710, L500.4050, L300.3900, L100.0100, L3890.6202, L501.4700, L503.5510, L500.4100, L501.9985, L501.9520, L503.0106, L3300.0700, L506.0400, L503.6030, L503.6550 ####[facility] [address] [place], [address] Triglyceride [Mass/Vol] 85 mg/dL Normal [facility] Comment on above: Result Comment: The drugs N-Acetylcysteine and Metamizole may falsely depress this assay. Normal range: <150 mg/dL Borderline High: 150-199 mg/dL High: 200-499 mg/dL Very High: >500 mg/dL Performed By: #### L 501.6710, L500.4050, L300.3900, L100.0100, L3890.6202, L501.4700, L503.5510, L500.4100, L501.9985, L501.9520, L503.0106, L3300.0700, L506.0400, L503.6030, L503.6550 ####[facility] [address] [place], [address] MCV (mean corpuscular volume ) determinationOrdered By: Stanley Garcia on 06-08-2025 MCV (RBC) [Entitic vol] 100.[address] [facility] 81-99 [facility] Mean corpuscular hemoglobin (MCH) determinationOrdered By: Stanley Garcia on 06-08-2025 MCH (RBC) [Entitic mass] 34.8 pg High 27.0-32.0 [facility] Mean corpuscular hemoglobin concentration (MCHC) determinationOrdered By: Stanley Garcia on 06-08-2025 MCHC (RBC) [Mass/Vol] 34.7 g/dL 32-36 [facility] [place] [facility] Mean platelet volume determi nationOrdered By: Stanley Garcia on 06-08-2025 Platelet mean volume (Bld) [Entitic vol] 10.7 fL 6.2-12.0 [facility] Monocyte percentageOrdered B y: Stanley Garcia on 06-08-2025 Monocytes/100 WBC (Bld) 9.5 % 0-10 [facility] Neutrophil percentageOrdered By: Stanley Garcia on 06-08-2025 Neutrophils/100 WBC (Bld) 73.4 % High 47-70 [facility] No Panel InformationOrdered By: Stanley Garcia on 06-08-2025 Unsaturated Iron Binding Capacity 274 ug/dL 228-428 [facility] Nucleated red blood cell per centageOrdered By: Stanley Garcia on 06-08-2025 Nucleated RBC/100 WBC (Bld) [Ratio] 0 % 0-5 [facility] Platelet countOrdered By: Carolina Garcia on 06-08-2025 Platelets (Bld) [#/Vol] 53 10*3/uL Low 150-450 [facility] Potassium measurement (mass/ volume)Ordered By: Stanley Garcia on 06-08-2025 Potassium (Unsp spec) [Mass/Vol] 4.4 mmol/L 3.3-5.1 [facility] Prothrombin Time w/INRon INR Coag (PPP) [Relative time] 1.2 {INR} Normal [facility] Comment on above: Performed By: #### L 501.6710, L500.4050, L300.3900, L100.0100, L3890.6202, L501.4700, L503.5510, L500.4100, L501.9985, L501.9520, L503.0106, L3300.0700, L506.0400, L503.6030, L503.6550 #### [facility] Laboratory [address] [place], [place], [address] PT Coag (PPP) [Time] 15.3 s High 11.7-14.9 [facility] Comment on above: Performed By: #### L 501.6710, L500.4050, L300.3900, L100.0100, L3890.6202, L501.4700, L503.5510, L500.4100, L501.9985, L501.9520, L503.0106, L3300.0700, L506.0400, L503.6030, L503.6550 #### [facility] [address] [facility] [address] [place], [place], [phone] Prothrombin timeOrdered By: Stanley Garcia on 06-08-2025 PT Coag (PPP) [Time] 15.3 s High 11.7-14.9 [facility] RBC Auto (Bld) [#/Vol]Ordere d By: Stanley Garcia on 06-08-2025 RBC (Bld) [#/Vol] 2.70 10*6/uL Low 4.2-5.4 [facility] Screening total cholesterol/ high density lipoprotein (HDL) cholesterol ratioOrdered By: Stanley Garcia on 06-08-2025 Cholesterol.total/Cho lesterol in HDL [Mass ratio] 2.15 {ratio} [facility] Serum creatinine measurement (mass/volume)Ordered By: Stanley Garcia on 06-08-2025 Creatinine [Mass/Vol] 1.53 mg/dL High 0.70-1.20 [facility] [place] [facility] Serum globulin measurementOr dered By: Stanley Garcia on 06-08-2025 Globulin (S) [Mass/Vol] 3.7 g/dL 2.2-4.2 [facility] Serum glucose measurement (m ass/volume)Ordered By: Stanley Garcia on 06-08-2025 Glucose [Mass/Vol] 96 mg/dL 70-[address] [facility] Serum hepatitis B virus surf lali antibody detectionOrdered By: Stanley Garcia on 06-08-2025 HBV surface Ab Ql (S) Non-Reactive [facility] Comment on above: <8.5 mIU/mL: Non-[place] ctive8.5<= x <11.5 mIU/mL: Indeterminate>=11.5 mIU/mL: Reactive Non Reactive: Inconsistent with immunity less than <10 mIU/mL Reactive: Consistent with immunity greater than or equal to 10 mIU/mL Serum or plasma C reactive p rotein measurement (mass/volume)Ordered By: Stanley Garcia on 06-08-2025 CRP [Mass/Vol] 6.87 mg/L High 0.0-3.0 [facility] Serum or plasma alanine balderas otransferase (ALT) measurementOrdered By: Stanley Garcia on 06-08-2025 ALT [Catalytic activity/Vol] 30 U/L <35 [facility] Serum or plasma albumin tabatha urement (mass/volume)Ordered By: Stanley Garcia on 06-08-2025 Albumin [Mass/Vol] 3.7 g/dL 3.4-4.[address] [facility] Serum or plasma albumin/glob ulin mass ratioOrdered By: Stanley Garcia on 06-08-2025 Albumin/Globulin [Mass ratio] 1.0 {ratio} 0.9-2.4 [facility] Serum or plasma alkaline zaynab sphatase measurementOrdered By: Stanley Garcia on 06-08-2025 ALP [Catalytic activity/Vol] 100 U/L 35-104 [facility] Serum or plasma calcium tabatha urement (mass/volume)Ordered By: Stanley Garcia on 06-08-2025 Calcium [Mass/Vol] 10.4 mg/dL 7.6-11.[address] [facility] Serum or plasma cholesterol in HDL measurement (mass/volume)Ordered By: Stanley Garcia on 06-08-2025 Cholesterol in HDL [Mass/Vol] 69 mg/dL >40 [facility] Comment on above: National Cholesterol Education Program (NCEP) guidelines:<40 mg/dL: Low HDL-cholesterol (major risk factor for CHD)>= 60 mg/dL: High HDL-cholesterol (negative risk factor for CHD)HDL-cholesterol is affected by a number of factors, e.g. smoking, exercise, hormones, sex and age. Serum or plasma cholesterol measurement (mass/volume)Ordered By: Stanley Garcia on 06-08-2025 Cholesterol [Mass/Vol] 149 mg/dL <201 [facility] Comment on above: Cholesterol level, D esirable <200 mg/dLBorderline high cholesterol 200-239 mg/dLHigh cholesterol >=240 mg/dLRecommendations of the NCEP Adult Treatment Panel for the following risk-cutoff thresholds for the [place] population. Serum or plasma ferritin nelida surement (mass/volume)Ordered By: Stanley Garcia on 06-08-2025 Ferritin [Mass/Vol] 53 ng/mL 22-378 [facility] Serum or plasma iron saturat ion measurement (mass fraction)Ordered By: Stanley Garcia on 06-08-2025 Iron saturation [Mass fraction] 20.0 % 13-59 [facility] Serum or plasma urea nitroge n measurement (mass/volume)Ordered By: Stanley Garcia on 06-08-2025 Urea nitrogen [Mass/Vol] 28 mg/dL High 4-19 [facility] Sodium levelOrdered By: Rosario Garcia on 06-08-2025 Sodium [Moles/Vol] 135 mmol/L 133-[address] [facility] T4 Free Directon 06-08-2025 T4 FREE DIRECT 1.60 ng/dL High 0.76-1.46 [facility] Comment on above: Performed By: #### L 501.6710, L500.4050, L300.3900, L100.0100, L3890.6202, L501.4700, L503.5510, L500.4100, L501.9985, L501.9520, L503.0106, L3300.0700, L506.0400, L503.6030, L503.6550 ####[facility] [address] [place], [address] T4 freeOrdered By: Stanley timmons on 06-08-2025 Free T4 [Mass/Vol] 1.60 ng/dL High 0.76-1.[address] [facility] TSH DL <= 0.005 mIU/L QnOrde red By: Stanley Garcia on 06-08-2025 TSH Qn 3.300 uIU/mL 0.300-4.200 [facility] Thyroid Stim Hormone (TSH)on 06-08-2025 TSH 3.300 uIU/mL Normal 0.300-4.200 [facility] Comment on above: Performed By: #### L 501.6710, L500.4050, L300.3900, L100.0100, L3890.6202, L501.4700, L503.5510, L500.4100, L501.9985, L501.9520, L503.0106, L3300.0700, L506.0400, L503.6030, L503.6550 ####[facility] [address] [place], [place], [phone] Total proteinOrdered By: Roxanna Garcia on 06-08-2025 Protein [Mass/Vol] 7.4 g/dL 5.9-8.[address] [facility] Triglycerides measurementOrd ered By: Stanley Garcia on 06-08-2025 Triglyceride [Mass/Vol] 85 mg/dL <199 [facility] Comment on above: The drugs N-Acetylcy steine and Metamizole may falsely depress this assay. Normal range: <150 mg/dLBorderline High: 150-199 mg/dLHigh: 200-499 mg/dLVery High: >500 mg/dL Venous blood ammonia measure mentOrdered By: Stanley Garcia on 06-08-2025 Ammonia (P) [Moles/Vol] 41.2 umol/L 11-51 [facility] Vitamin B12on 06-08-2025 Cobalamin (Vitamin B12) [Mass/Vol] 268 pg/mL Normal 180-914 [facility] Comment on above: Performed By: #### L 501.6710, L500.4050, L300.3900, L100.0100, L3890.6202, L501.4700, L503.5510, L500.4100, L501.9985, L501.9520, L503.0106, L3300.0700, L506.0400, L503.6030, L503.6550 ####[facility] [address] [place], [address] Vitamin B12 ser/plasOrdered By: Stanley Garcia on 06-08-2025 Cobalamin (Vitamin B12) [Mass/Vol] 268 pg/mL 180-914 [facility] White blood cell (WBC) count Ordered By: Stanleymalick Garcia on 06-08-2025 WBC (Bld) [#/Vol] 4.3 10*3/uL Low 4.4-11.[address] [facility] CNOVon 04-06-2025 CNOV Office Visit (FAMPWS ) ROBBIN MORSE ([id number]) 1955 F Date Time Provider Department 04/06/25 10:40 [facility] visit today, we recorded the following information about you: Pulse Respiration Blood pressure Weight 75/minute 16/minute 116/64 55.3 kg Height 1.549 m Billy Culp MD 04/07/2025 7:24 AM Signed Robbin Hilllatanya is a 69 year old female here for a Medicare wellness visit. Medicare Health Risk Assessment General Health So so Exercise: Minutes/Day Patient declined Exercise: Days/Week Patient declined Alcohol: Daily Use Never Alcohol: Drinks/Day Patient does not drink Alcohol: 6 or more drinks Never Feel off balance Decline Concerns: Teeth/Dentures No Concerns: Sexual function Decline Troubled by feelings Decline Frequency: Eating healthy diet Decline ADLs requiring help Decline Safety precautions in home/vehicle Decline Smoke, vape, chews tobacco No Difficulty hearing Decline Difficulty seeing No Current Providers Specialists: I have reviewed specialist-related care of the patient in the medical record. Medical/Family history review Reviewed and updated problem list, medical/surgical/family/soc ial history, medications, and allergies. Opioid use review Opioid Medications (last 90 days) No data to display Anxiety/Depression screening PHQ-2 Score: 0 (Lower risk for depression) HORACIO-2 Score: 0 (Lower risk for anxiety) Recommendation: no further intervention at this time Cognitive screening Score: 5 Cognitive screening reviewed and No further action needed (score 3-5). Functional Observation Was the patient's Timed Up AND Go test unsteady or >= 12 seconds? No Advance Care Planning Surrogate decision maker documented and/or advance directives scanned in chart Measurements BP 116/64 Pulse 75 Resp 16 Ht 154.9 cm (5' 1) Wt 55.3 kg (122 lb) LMP 10/14/2005 SpO2 98% BMI 23.05 kg/m? Vision Screening: Follows with optometry/ophthalmology Assessment/Plan Medicare annual wellness visit, subsequent (00.) - Counseled on healthy diet and regular exercise - Fall avoidance information provided - Personalized prevention plan provided See below Chief Complaint Patient presents with: Medicare Wellness Exam HPI Robbin Morse is a 69 year old female who presents here today for Chronic Medical Conditions. and Medicare Annual Visit. patient with Hx of DM 2, Hyperlipidemia, HTN, A. Fib, Valvular heart disease, CKD, Iron Def, thrombocytopenia, Leukopenia, B12 def, Pulm HTN, esophageal varices, SANCHEZ, cirrhosis as well as those reviewed and addressed below and in ROS. Patient sees Ophthalmology last visit 02/2025 Patient sees Cardiology last visit 01/2025 Patient sees GI last visit 01/2025 Robbin describes her overall health as so-so and tolerable, given her multiple medical conditions. She continues to follow with Dr. Groves, Dr. Garcia, and Dr. Mcclure. She had an eye exam on March 03. She declines the 6-month COVID booster today, preferring to receive it closer to the holidays due to potential travel plans. She also declines a mammogram at this time, citing fatigue from numerous tests. She denies recent fevers, frequent cephalalgia, sudden changes in hearing or vision, wheezing, chest pain, palpitations, emesis, diarrhea, heartburn, hematuria, or hematochezia. She also denies recent changes in heat or cold tolerance, increased thirst, syncope, seizures, or tremors. She reports no issues with her nose or throat, no lumps or swelling in her neck, and no skin lesions, rashes, or sores. She has not noticed any easy bruising or bleeding. She experiences dyspnea when climbing a flight of 14 stairs, which usually resolves quickly. She notes that on days with less energy, it takes longer for the dyspnea to subside. She denies leg swelling, attributing this to her use of Lasix. She reports no discomfort with urination or sudden increase in frequency, except when taking Lasix. She reports arthralgia, particularly in her fingers, which she attributes to arthritis. She describes the pain as variable, sometimes feeling like a needle prick. She also reports a sensation of her left ear being plugged up, similar to a child with a cold, allowing her to hear her breath and voice. This sensation is intermittent and not alleviated by the Valsalva maneuver. She has not tried Flonase. She denies tinnitus. She reports loose stools, which she attributes to her liver condition and possibly her medication, Ursodiol. She notes that certain foods trigger loose stools and that she often needs to use the bathroom after eating. She denies taking fiber supplements. She also reports feeling cold all the time, which she attributes to her anemia. She is currently taking levothyroxine, 25 mcg, one tablet Saturday through Saturday (more content not included)... Normal [facility] ALBUMIN/CREATININE RATIO, UR INEon 03-31-2025 Albumin DL <= 20 mg/L (U) [Mass/Vol] mg/dL Normal [facility] Comment on above: Order Comment: Speci men Type: URINE SPECIMENOrdering Facility: [facility] Address: [address] [place] [address] Performed By: #### U ACR ####[facility] LABCLIA [id number] [place] [address] [place] Albumin/Creatinine (U) [Mass ratio] <10 Normal <30 [facility] Comment on above: Order Comment: Speci men Type: URINE SPECIMENOrdering Facility: [facility] Address: [address] [place] [address] Result Comment: Adul t Male and Female Nephrotic Criteria: <30 mg/g is considered normal to mildly increased 30-300 mg/g is considered moderately increased >300 mg/g is considered severely increased KDIGO. (2013). KDIGO 2012 Clinical Practice Guideline for the Evaluation and Management of Chronic Kidney Disease. Official Journal of the International Society of Nephrology, 3(1), 1-150. Performed By: #### U ACR ####[facility] LABCLIA [id number] [place] [address] [place] Creatinine (U) [Mass/Vol] 117.7 mg/dL Normal 20.0-300.0 [facility] Comment on above: Order Comment: Speci men Type: URINE SPECIMENOrdering Facility: [facility] Address: [address] [place] [address] Performed By: #### U ACR ####[facility] LABCLIA [id number] [place] [address] [place] CBC W Auto Differential pane l (Bld)on 03-31-2025 Basophils (Bld) [#/Vol] 0.03 10*3/uL Normal <0.11 [facility] Comment on above: Order Comment: Speci men Type: BLOOD SPECIMENOrdering Facility: [facility] Address: [address] [place] [address] Performed By: #### 5 7021-8 ####[facility] MILLWNCLIA [id number] [address] [place] Basophils/100 WBC (Bld) 0.6 % Normal [facility] Comment on above: Order Comment: Speci men Type: BLOOD SPECIMENOrdering Facility: [facility] Address: [address] [place] [address] Performed By: #### 5 7021-8 ####[facility] MILLTOWNCLIA [id number] [place] [address] [place] Differential cell count method Nom (Bld) Auto Normal [facility] Comment on above: Order Comment: Speci men Type: BLOOD SPECIMENOrdering Facility: [facility] Address: [address] [place] [address] Performed By: #### 5 7021-8 ####[facility] MILLWNCLIA [id number] [place] [address] [place] Eosinophils (Bld) [#/Vol] 0.26 10*3/uL Normal <0.46 [facility] Comment on above: Order Comment: Speci men Type: BLOOD SPECIMENOrdering Facility: [facility] Address: [address] [place] [address] Performed By: #### 5 7021-8 ####[facility] [id number] [place] [address] [place] Eosinophils/100 WBC (Bld) 5.0 % Normal [facility] Comment on above: Order Comment: Speci men Type: BLOOD SPECIMENOrdering Facility: [facility] Address: [address] [place] [address] Performed By: #### 5 7021-8 ####[facility] EMERGENCYNCLINayeli [id number] [place] [address] [place] Erythrocyte distribution width (RBC) [Ratio] 13.2 % Normal 11.5-15.0 [facility] Comment on above: Order Comment: Speci men Type: BLOOD SPECIMENOrdering Facility: [facility] Address: [address] [place] [address] Performed By: #### 5 7021-8 ####[facility] EM[facility]ENCYNCL[facility] [id number] [place] [address] [place] Hematocrit (Bld) [Volume fraction] 26.6 % Low 36.0-46.0 [facility] Comment on above: Order Comment: Speci men Type: BLOOD SPECIMENOrdering Facility: [facility] Address: [address] [place] [address] Performed By: #### 5 7021-8 ####[facility]ENCYNCL[facility] [id number] [place] [address] [place] Hemoglobin (Bld) [Mass/Vol] 9.3 g/dL Low 11.5-15.5 [facility] Comment on above: Order Comment: Speci men Type: BLOOD SPECIMENOrdering Facility: [facility] Address: [address] [place] [address] Performed By: #### 5 7021-8 ####[facility] [id number] [place] [address] [place] Immature granulocytes (Bld) [#/Vol] 0.03 10*3/uL Normal <0.10 [facility] Comment on above: Order Comment: Speci men Type: BLOOD SPECIMENOrdering Facility: [facility] Address: [address] [place] [address] Performed By: #### 5 7021-8 ####[facility] [id number] [place] [address] [place] Immature granulocytes/100 WBC (Bld) 0.6 % Normal [facility] Comment on above: Order Comment: Speci men Type: BLOOD SPECIMENOrdering Facility: [facility] Address: [address] [place] [address] Performed By: #### 5 7021-8 ####[facility] [id number] [place] [address] [place] Lymphocytes (Bld) [#/Vol] 0.73 10*3/uL Low 1.00-4.00 [facility] Comment on above: Order Comment: Speci men Type: BLOOD SPECIMENOrdering Facility: [facility] Address: [address] [place] [address] Performed By: #### 5 7021-8 ####[facility] [id number] [place] [address] [place] Lymphocytes/100 WBC (Bld) 13.9 % Normal [facility] Comment on above: Order Comment: Speci men Type: BLOOD SPECIMENOrdering Facility: [facility] Address: [address] [place], [place] [address] Performed By: #### 5 7021-8 ####[facility] MILLSAGARWNCLIA [id number] [place] [address] [place] MCH (RBC) [Entitic mass] 34.7 pg High 26.0-34.0 [facility] Comment on above: Order Comment: Speci men Type: BLOOD SPECIMENOrdering Facility: [facility] Address: [address] [place] [address] Performed By: #### 5 7021-8 ####[facility]ENC[facility]CL[facility] [id number] [place] [address] [place] MCHC (RBC) [Mass/Vol] 35.0 g/dL Normal 30.5-36.0 [facility] Comment on above: Order Comment: Speci men Type: BLOOD SPECIMENOrdering Facility: [facility] Address: [address] [place] [address] Performed By: #### 5 7021-8 ####[facility] HOSPITALLIA [id number] [place] [address] [place] MCV (RBC) [Entitic vol] 99.3 fL Normal 80.0-100.0 [facility] Comment on above: Order Comment: Speci men Type: BLOOD SPECIMENOrdering Facility: [facility] Address: [address] [place] [address] Performed By: #### 5 7021-8 ####[facility] [id number] [place] [address] [place] Monocytes (Bld) [#/Vol] 0.53 10*3/uL Normal <0.87 [facility] Comment on above: Order Comment: Speci men Type: BLOOD SPECIMENOrdering Facility: [facility] Address: [address] [place] [address] Performed By: #### 5 7021-8 ####[facility] [id number] [place] [address] [place] Monocytes/100 WBC (Bld) 10.1 % Normal [facility] [facility] Comment on above: Order Comment: Speci men Type: BLOOD SPECIMENOrdering Facility: [facility] Address: [address] [place] [address] Performed By: #### 5 7021-8 ####[facility] [id number] [place] [address] [place] Neutrophils (Bld) [#/Vol] 3.66 10*3/uL Normal 1.45-7.50 [facility] Comment on above: Order Comment: Speci men Type: BLOOD SPECIMENOrdering Facility: [facility] Address: [address] [place] [address] Performed By: #### 5 7021-8 ####[facility] [id number] [place] [address] [place] Neutrophils/100 WBC (Bld) 69.8 % Normal [facility] Comment on above: Order Comment: Speci men Type: BLOOD SPECIMENOrdering Facility: [facility] Address: [address] [place] [address] Performed By: #### 5 7021-8 ####[facility] [id number] [place] [address] [place] Nucleated RBC (Bld) [#/Vol] 10*3/uL Normal <0.01 [facility] Comment on above: Order Comment: Speci men Type: BLOOD SPECIMENOrdering Facility: [facility] Address: [address] [place] [address] Performed By: #### 5 7021-8 ####[facility]IT[facility]IA [id number] [place] [address] [place] Nucleated RBC/100 WBC (Bld) [Ratio] 0.0 /100 WBC Normal [facility] Comment on above: Order Comment: Speci men Type: BLOOD SPECIMENOrdering Facility: [facility] Address: [address] [place] [address] Performed By: #### 5 7021-8 ####[facility] KRISTAWNCLIA [id number] [place] [address] [place] Platelet mean volume (Bld) [Entitic vol] 9.9 fL Normal 9.0-12.7 [facility] Comment on above: Order Comment: Speci men Type: BLOOD SPECIMENOrdering Facility: [facility] Address: [address] [place] [address] Performed By: #### 5 7021-8 ####[facility]YNCCELINA [id number] [place] [address] [place] Platelets (Bld) [#/Vol] 55 10*3/uL Low 150-400 [facility] Comment on above: Order Comment: Speci men Type: BLOOD SPECIMENOrdering Facility: [facility] Address: [address] [place] [address] Result Comment: No c lot detected. Performed By: #### 5 7021-8 ####[facility] [id number] [place] [address] [place] RBC (Bld) [#/Vol] 2.68 10*6/uL Low 3.90-5.20 [facility] Comment on above: Order Comment: Speci men Type: BLOOD SPECIMENOrdering Facility: [facility] Address: [address] [place] [address] Performed By: #### 5 7021-8 ####[facility]ENCYNCL[facility] [id number] [place] [address] [place] WBC (Bld) [#/Vol] 5.24 10*3/uL Normal 3.70-11.00 [facility] Comment on above: Order Comment: Speci men Type: BLOOD SPECIMENOrdering Facility: [facility] Address: [address] [place], [place] [address] Performed By: #### 5 7021-8 ####[facility] KRISTADAMIR [id number] [place] [address] [place] Comprehensive metabolic 2000 panelon 03-31-2025 Albumin [Mass/Vol] 3.4 g/dL Low 3.9-4.9 [facility] Comment on above: Order Comment: Speci men Type: BLOOD SPECIMENOrdering Facility: [facility] Address: [address] [place] [address] Performed By: #### 2 4323-8, 14864-6 ####[facility]YMIGUEL [id number] [place] [address] [place] ALP [Catalytic activity/Vol] 107 U/L Normal 34-123 [facility] Comment on above: Order Comment: Speci men Type: BLOOD SPECIMENOrdering Facility: [facility] Address: [address] [place] [address] Performed By: #### 2 4323-8, 03606-7 ####[facility] KRISTAVESTALYENIA [id number] [place] [address] [place] ALT [Catalytic activity/Vol] 28 U/L Normal 7-38 [facility] Comment on above: Order Comment: Speci men Type: BLOOD SPECIMENOrdering Facility: [facility] Address: [address] [place] [address] Performed By: #### 2 4323-8, 22427-2 ####[facility]YNCL[facility] [id number] [place] [address] [place] Anion gap [Moles/Vol] 11 mmol/L Normal 8-15 [facility] Comment on above: Order Comment: Speci men Type: BLOOD SPECIMENOrdering Facility: [facility] Address: [address] [place] [address] Performed By: #### 2 4323-8, ####[facility] MILLTOWNCLIA [id number] [place] [address] [place] AST [Catalytic activity/Vol] 33 U/L Normal 13-35 [facility] Comment on above: Order Comment: Speci men Type: BLOOD SPECIMENOrdering Facility: [facility] Address: [address] [place], [place] [address] Performed By: #### 2 4323-8, ####[facility] MILLTOWRADHALIA [id number] [place] [address] [place] Bilirubin [Mass/Vol] 0.8 mg/dL Normal 0.2-1.3 [facility] Comment on above: Order Comment: Speci men Type: BLOOD SPECIMENOrdering Facility: [facility] Address: [address] [place], [place] [address] Performed By: #### 2 4323-8, ####[facility] KRISTAVESTALRADHALIA [id number] [place] [address] [place] Calcium [Mass/Vol] 9.7 mg/dL Normal 8.5-10.2 [facility] Comment on above: Order Comment: Speci men Type: BLOOD SPECIMENOrdering Facility: [facility] Address: [facility] [place] [address] Performed By: #### 2 4323-8, ####[facility] KRISTAWNCLIA [id number] [place] [address] [place] Chloride [Moles/Vol] 102 mmol/L Normal 98-107 [facility] Comment on above: Order Comment: Speci men Type: BLOOD SPECIMENOrdering Facility: [facility] Address: [address] [place] [address] Performed By: #### 2 4323-8, ####[facility] KRISTAVESTALNCLIA [id number] [place] [address] [place] CO2 [Moles/Vol] 21 mmol/L Low 22-30 [facility] Comment on above: Order Comment: Speci men Type: BLOOD SPECIMENOrdering Facility: [facility] Address: [address] [place] [address] Performed By: #### 2 4323-8, ####[facility] [id number] [place] [address] [place] Creatinine [Mass/Vol] 1.25 mg/dL High 0.58-0.96 [facility] Comment on above: Order Comment: Speci men Type: BLOOD SPECIMENOrdering Facility: [facility] Address: [address] [place] [address] Performed By: #### 2 4323-8, ####[facility] [id number] [place] [address] [place] Creatinine and Glomerular filtration rate.predicted panel (S/P/Bld) 47 mL/min/1.73m??? Low >=60 [facility] Comment on above: Order Comment: Speci men Type: BLOOD SPECIMENOrdering Facility: [facility] Address: [address] [place] [address] Result Comment: Lyndsey mated Glomerular Filtration Rate (eGFR) is calculated using the 2020 CKD-EPI creatinine equation. This equation utilizes serum creatinine, sex, and age as parameters. The creatinine assay has traceable calibration to isotope dilution-mass spectrometry. Refer to KDIGO guidelines for clinical interpretation. In patients with unstable renal function, e.g. those with acute kidney injury, the eGFR may not accurately reflect actual GFR. Performed By: #### 2 4323-8, 00010-4 ####[facility]ENCYNCL[facility] [id number] [place] [address] [place] Glucose [Mass/Vol] 125 mg/dL High 74-99 [facility] Comment on above: Order Comment: Speci men Type: BLOOD SPECIMENOrdering Facility: [facility] Address: [address] [place] [address] Result Comment: The [place] Diabetes Association (ADA) provides guidance for cutoff values for fasting glucose and random glucose. The ADA defines fasting as no caloric intake for at least 8 hours. Fasting plasma glucose results between 100 to 125 mg/dL indicate increased risk for diabetes (prediabetes). Fasting plasma glucose results greater than or equal to 126 mg/dL meet the criteria for diagnosis of diabetes. In the absence of unequivocal hyperglycemia, results should be confirmed by repeat testing. In a patient with classic symptoms of hyperglycemia or hyperglycemic crisis, random plasma glucose results greater than or equal to 200 mg/dL meet the criteria for diagnosis of diabetes. Reference: Standards of Medical Care in Diabetes 2016, [place] Diabetes Association. Diabetes Care. 2016.39(Suppl 1). Performed By: #### 2 4323-8, ####[facility] iWitnessWRADHALINayeli [id number] [place] [address] [place] Potassium [Moles/Vol] 4.9 mmol/L Normal 3.7-5.1 [facility] Comment on above: Order Comment: Pelon mora Type: BLOOD SPECIMENOrdering Facility: [facility] Address: [address] [place] [address] Performed By: #### 2 4323-8, ####[facility] MILLWRADHALINayeli [id number] [place] [address] [place] Protein [Mass/Vol] 6.8 g/dL Normal 6.3-8.0 [facility] Comment on above: Order Comment: Pelon mora Type: BLOOD SPECIMENOrdering Facility: [facility] Address: [address] [place], [place] [address] Performed By: #### 2 4323-8, ####[facility] MILLWNCLIA [id number] [place] [address] [place] Sodium [Moles/Vol] 134 mmol/L Low 136-144 [facility] Comment on above: Order Comment: Pelon mora Type: BLOOD SPECIMENOrdering Facility: [facility] Address: [address] [place] [address] Performed By: #### 2 4323-8, 89979-9 ####[facility] [id number] [place] [address] [place] Urea nitrogen [Mass/Vol] 21 mg/dL Normal 7-21 [facility] Comment on above: Order Comment: Pelon men Type: BLOOD SPECIMENOrdering Facility: [facility] Address: [address] [place] [address] Performed By: #### 2 4323-8, 07543-2 ####[facility] [id number] [place] [address] [place] HbA1c (Bld)on 03-31-2025 Average glucose Estimated from glycated hemoglobin (Bld) [Mass/Vol] 157 mg/dL Normal [facility] Comment on above: Order Comment: Pelon mora Type: BLOOD SPECIMENOrdering Facility: [facility] Address: [address] [place] [address] Result Comment: eAG: (Estimated average glucose) is a calculated value from HgbA1c and is insurance claims representative of the average blood glucose level in the last 2-3 month period. Performed By: #### 5 5454-3 ####[facility] LABCLIA [id number] [place] [address] [place] HbA1c (Bld) [Mass fraction] 7.1 % High 4.3-5.6 [facility] Comment on above: Order Comment: Pelon mora Type: BLOOD SPECIMENOrdering Facility: [facility] Address: [address] [place] [address] Result Comment: [place] Diabetes Association guidelines indicate that patients with HgbA1c in the range 5.7-6.4% are at increased risk for development of diabetes, and intervention by lifestyle modification may be beneficial. HgbA1c greater or equal to 6.5% is considered diagnostic of diabetes. Performed By: #### 5 5454-3 ####[facility] LABIA [id number] [place] [id number] [place] Iron and Iron binding capaci ty panelon 03-31-2025 Iron [Mass/Vol] 53 ug/dL Normal 41-186 [facility] Comment on above: Order Comment: Speci men Type: BLOOD SPECIMENOrdering Facility: [facility] Address: [address] [place] [address] Performed By: #### 2 132-9, 3016-3, 08426-1, LIPNF ####[facility] [id number] [address] [place] Iron binding capacity [Mass/Vol] 312 ug/dL Normal 232-386 [facility] Comment on above: Order Comment: Speci men Type: BLOOD SPECIMENOrdering Facility: [facility] Address: [address] [place] [address] Performed By: #### 2 132-9, 3016-3, 96329-4, LIPNF ####[facility] [id number] [address] [place] Iron/TIBC [Molar ratio] 17.0 % Normal 15.0-57.0 [facility] Comment on above: Order Comment: Speci men Type: BLOOD SPECIMENOrdering Facility: [facility] Address: [address] [place] [address] Performed By: #### 2 132-9, 3016-3, 94196-2, LIPNF ####[facility] [id number] [place] [id number] [place] LIPID PANEL, NONFASTINGon Cholesterol [Mass/Vol] 148 mg/dL Normal <200 [facility] Comment on above: Order Comment: Speci men Type: BLOOD SPECIMENOrdering Facility: [facility] Address: [address] [place] [address] Result Comment: <200 mg/dL, Desirable 200-239 mg/dL, Borderline high >239 mg/dL, High Performed By: #### 2 132-9, 3016-3, 11650-7, LIPNF ####[facility] LABCLIA [id number] [place] [id number] [place] HDL CHOLESTEROL, NF 65 mg/dL Normal >39 [facility] Comment on above: Order Comment: Speci men Type: BLOOD SPECIMENOrdering Facility: [facility] Address: [address] [place] [address] Result Comment: 40-5 9 mg/dL, Acceptable >59 mg/dL, High: Negative risk factor for coronary heart disease <40 mg/dL, Low: Positive risk factor for coronary heart disease Performed By: #### 2 132-9, 3016-3, 21721-5, LIPNF ####[facility] LABCLIA [id number] [address], [address] [place] LDL CHOLESTEROL CALCULATED, NF 68 mg/dL Normal <100 [facility] Comment on above: Order Comment: Speci men Type: BLOOD SPECIMENOrdering Facility: [facility] Address: [address] [place] [address] Result Comment: <100 mg/dL, Optimal 100-129 mg/dL, Near optimal/above optimal 130-159 mg/dL, Borderline high 160-189 mg/dL, High >189 mg/dL, Very high Secondary prevention optimal LDL Cholesterol levels are recommended to be <70 mg/dL LDL cholesterol is calculated using the Ochoa-NIH equation. Performed By: #### 2 132-9, 3016-3, 19630-5, LIPNF ####[facility] LABCLIA [id number] [place] [id number] [place] LDL/HDL RATIO, NF 1.05 mg/dL Normal <2.54 [facility] Comment on above: Order Comment: Speci men Type: BLOOD SPECIMENOrdering Facility: [facility] Address: [address] [place] [address] Result Comment: Yany cutler: 1. National Cholesterol Education Program ATP III Guideline At-A-Glance Quick Desk Reference: National Heart, Lung, and Blood [place]. National Institutes of Health. 2001: NIH Publication No. 01-3305. 2. An International Atherosclerosis Society position paper: global recommendations for the management of dyslipidemia: executive summary, Atherosclerosis. 2014: 232(2):410-413. Performed By: #### 2 132-9, 3016-3, 56374-7, LIPNF ####[facility] LABCLIA [id number] [address] [address] [place] NON HDL CHOL, NF 83 mg/dL Normal <130 [facility] Comment on above: Order Comment: Speci men Type: BLOOD SPECIMENOrdering Facility: [facility] Address: [address] [place] [address] Result Comment: <130 mg/dL, Optimal 130-159 mg/dL, Near optimal/above optimal 160-189 mg/dL, Borderline high 190-219 mg/dL, High >219 mg/dL, Very high Secondary prevention optimal non HDL Cholesterol levels are recommended to be <100 mg/dL Performed By: #### 2 132-9, 3016-3, 18016-3, LIPNF ####[facility] LABCLIA [id number] [address] [address] [place] T CHOL/HDL RATIO NF 2.28 mg/dL Normal <5.10 [facility] Comment on above: Order Comment: Speci men Type: BLOOD SPECIMENOrdering Facility: [facility] Address: [address] [place] [address] Performed By: #### 2 132-9, 3016-3, 67521-3, LIPNF ####[facility] LABCLIA [id number] [address] [address] [place] TRIGLYCERIDES, NF 79 mg/dL Normal <150 [facility] Comment on above: Order Comment: Speci men Type: BLOOD SPECIMENOrdering Facility: [facility] Address: [address] [place] [address] Result Comment: <150 mg/dL, Normal 150-199 mg/dL, Borderline high 200-499 mg/dL, High >499 mg/dL, Very high Performed By: #### 2 132-9, 3016-3, 55086-0, LIPNF ####[facility] LABCLIA [id number] [place] [address] [place] VLDL CHOLESTEROL, NF 12 mg/dL Normal <30 [facility] Comment on above: Order Comment: Speci men Type: BLOOD SPECIMENOrdering Facility: [facility] Address: [address] [place] [address] Performed By: #### 2 132-9, 3016-3, 06055-8, LIPNF ####[facility] LABCLIA [id number] [place] [address] [place] Magnesium SerPl-mCncon 03-31 Magnesium [Mass/Vol] 1.7 mg/dL Normal 1.7-2.3 [facility] Comment on above: Order Comment: Speci men Type: BLOOD SPECIMENOrdering Facility: [facility] Address: [address] [place] [address] Performed By: #### 2 4323-8, 55502-4 ####[facility] [id number] [place] [address] [place] TSH SerPl-aCncon 03-31-2025 TSH Qn 3.210 m[IU]/L Normal 0.270-4.200 [facility] Comment on above: Order Comment: Speci men Type: BLOOD SPECIMENOrdering Facility: [facility] Address: [address] [place] [address] Performed By: #### 2 132-9, 3016-3, 28906-5, LIPNF ####[facility] LABCLIA [id number] [place] [address] [place] Urinalysis complete panel (U )on 03-31-2025 Bacteria LM.HPF (Urine sed) [#/Area] Negative Normal Negative [facility] Comment on above: Order Comment: Speci men Type: URINE SPECIMENOrdering Facility: [facility] Address: [address] [place] [address] Performed By: #### 2 4356-8 ####[facility] LABCLIA [id number] [place] [address] [place] Bilirubin Ql (U) Negative Normal Negative [facility] Comment on above: Order Comment: Speci men Type: URINE SPECIMENOrdering Facility: [facility] Address: [address] [place] [address] Performed By: #### 2 4356-8 ####[facility] LABCLIA [id number] [place] [address] [place] Clarity (Unsp spec) Clear Normal Clear [facility] Comment on above: Order Comment: Speci men Type: URINE SPECIMENOrdering Facility: [facility] Address: [address] [place] [address] Performed By: #### 2 4356-8 ####[facility] LABCLIA [id number] [address] STATES OF [facility] Color (U) Yellow Normal Yellow [facility] Comment on above: Order Comment: Speci men Type: URINE SPECIMENOrdering Facility: [facility] Address: [address] [place] [address] Performed By: #### 2 4356-8 ####[facility] LABCLIA [id number] [place] [id number] [place] Epithelial cells LM.HPF (Urine sed) [#/Area] None Seen Normal [facility] Comment on above: Order Comment: Speci men Type: URINE SPECIMENOrdering Facility: [facility] Address: [address] [place] [address] Performed By: #### 2 4356-8 ####[facility] LABCLIA [id number] [facility] [address] [place] [address] [place] Glucose Test strip (U) [Mass/Vol] Negative Normal Negative [facility] Comment on above: Order Comment: Speci men Type: URINE SPECIMENOrdering Facility: [facility] Address: [address] [place] [address] Performed By: #### 2 4356-8 ####[facility] LABCLIA [id number] [facility] [address] [place] [address] [place] Hemoglobin Ql (U) Negative Normal Negative [facility] Comment on above: Order Comment: Speci men Type: URINE SPECIMENOrdering Facility: [facility] Address: [address] [place] [address] Performed By: #### 2 4356-8 ####[facility] LABCLIA [id number] [address], [facility] [place] Hyaline casts (Urine sed) [#/Area] 0 /[LPF] Normal 0 /LPF [facility] Comment on above: Order Comment: Speci men Type: URINE SPECIMENOrdering Facility: [facility] Address: [address] [place] [address] Performed By: #### 2 4356-8 ####[facility] LABCLIA [id number] [address] [place] [address] [place] Ketones Ql (U) Negative Normal Negative [facility] Comment on above: Order Comment: Speci men Type: URINE SPECIMENOrdering Facility: [facility] Address: [address] [place] [address] Performed By: #### 2 4356-8 ####[facility] LABCLIA [id number] [address] [place] [address] [place] Leukocyte esterase Test strip Ql (U) Negative Normal Negative [facility] Comment on above: Order Comment: Speci men Type: URINE SPECIMENOrdering Facility: [facility] Address: [address] [place] [address] Performed By: #### 2 4356-8 ####[facility] LABCLIA [id number] [address], [place] [address] [place] Nitrite Ql (U) Negative Normal Negative [facility] Comment on above: Order Comment: Speci men Type: URINE SPECIMENOrdering Facility: [facility] Address: [address] [place] [address] Performed By: #### 2 4356-8 ####[facility] LABIA [id number] [address], [place] [address] [place] pH (U) 6.0 [pH] Normal <8.5 [facility] Comment on above: Order Comment: Speci men Type: URINE SPECIMENOrdering Facility: [facility] Address: [address] [place] [address] Performed By: #### 2 4356-8 ####[facility] LABIA [id number] [place] [address] [place] Protein (U) [Mass/Vol] Negative Normal Negative [facility] Comment on above: Order Comment: Speci men Type: URINE SPECIMENOrdering Facility: [facility] Address: [address] [place] [address] Performed By: #### 2 4356-8 ####[facility] LABIA [id number] [place] [address] [place] RBC LM.HPF (Urine sed) [#/Area] 0-2 /HPF Normal 0-2 /HPF [facility] Comment on above: Order Comment: Speci men Type: URINE SPECIMENOrdering Facility: [facility] Address: [address] [place] [address] Performed By: #### 2 4356-8 ####[facility] LABIA [id number] [place] [id number] [place] Specific gravity (U) [Rel density] 1.015 Normal 1.005-1.030 [facility] Comment on above: Order Comment: Speci men Type: URINE SPECIMENOrdering Facility: [facility] Address: [address] [place] [address] Performed By: #### 2 4356-8 ####[facility] LABCLIA [id number] [place] [address] [place] Urobilinogen Ql (U) 1.0 EU/dL Normal 0.2-1.0 EU/dL [facility] Comment on above: Order Comment: Speci men Type: URINE SPECIMENOrdering Facility: [facility] Address: [address] [place] [address] Performed By: #### 2 4356-8 ####[facility] LABIA [id number] [place] [address] [place] WBC LM.HPF (Urine sed) [#/Area] 0-5 /HPF Normal 0-5 /HPF [facility] Comment on above: Order Comment: Speci men Type: URINE SPECIMENOrdering Facility: [facility] Address: [address] [place] [address] Performed By: #### 2 4356-8 ####[facility] LABIA [id number] [place] [address] [place] Vit B12 [facility] Cobalamin (Vitamin B12) [Mass/Vol] 336 pg/mL Normal 232-1245 [facility] Comment on above: Order Comment: Speci men Type: BLOOD SPECIMENOrdering Facility: [facility] Address: [address] [place] [address] Performed By: #### 2 132-9, 3016-3, 24795-2, LIPNF ####[facility] LABIA [id number] [place] [address] [place] Gastroenterology Visit Repor ton 02-09-2025 Gastroenterology Visit Report [facility] [address] [place] [address] OFFICE VISIT Date of Service: 02/09/25 MR#: [id number] Acct: [id number] Name: ROBBIN MORSE Rep #: [id number] : 1955 Provider: Dr. Stanley burns MD Age/Sex: 69/F [place] [facility] [place] Status: Signed Intake Vital Signs 08/18/24 15:08 02/08/25 07:38 02/09/25 15:28 Height 5 ft 1 in 5 ft 1 in 5 ft 1 in Weight: 127 lb 126 lb BMI 24.0 23.8 BP 122/71 H 121/75 H Blood Pressure Location Lt brachial Rt brachial Position Sitting Sitting Respiration 18 Pulse 77 74 Pulse Source Monitor Pulse Oximetry (%) 100 98 Oxygen Delivery Method room air Intake Visit Reasons: Follow Up Chief Complaint: 4 mo f/u Allergies diltiazem (From Cardizem) Adverse Reaction (Intermediate, Verified 02/08/25 10:52) elevates glucose sitagliptin (From Januvia) Adverse Reaction (Intermediate, Verified 02/08/25 10:52) CP/SOB pioglitazone (From Actos) Adverse Reaction (Verified 02/08/25 10:52) Swelling Jhzpmkw-NVJ-TeM Reductase Inhibitor (Hrbqilq-Rbk-Lni Reductase Inhibitor) Adverse Reaction (Verified 02/08/25 10:52) MAKES MY LEGS ACHE Have you fallen in the past year?: No PFSH Medical History Cataract (lens) fragments in eye following cataract surgery, bilateral Chronic kidney disease (CKD) Difficult intravenous access Wears glasses History of GI bleed History of ulceration Non-smoker Shortness of breath on exertion History of echocardiogram Cardiology follow-up encounter History of rheumatic fever Esophageal varices Renal insufficiency Vitamin B 12 deficiency Pulmonary HTN Rheumatic mitral insufficiency Hyperlipidemia Essential hypertension Acquired thrombocytopenia Diarrhea Anemia Bleeding tendency Post-menopausal Restless legs History of stress test Irregular heartbeat Thrombocytopenia Cirrhosis Acute on chronic blood loss anemia Diabetes Atrial fibrillation Surgical History History of bilateral cataract extraction ( 08/2023) History of colonoscopy S/P ablation of atrial fibrillation History of cholecystectomy History of History of esophagogastroduodenoscopy (EGD) History of prior ablation treatment Family History Father No problems noted. Social History Smoking Status: Never smoker alcohol intake: never substance use type: does not use caffeine: Yes what type of physical activity do you participate in: walking frequency: 3-4 times per week HPI HPI Chief Complaint: 4 mo f/u Details: ROBBIN MORSE, is a 69 F who presents to the office today for *[facility] hospitalization 07.22.21-07.24.21. [facility] ED with hematemesis in the setting of Xarelto with a hemoglobin of 7.6. Gastroenterology consulted and EGD performed with findings as below. During hospitalization a new diagnosis of liver cirrhosis r/t SANCHEZ was found. Bloodwork for autoimmune labs, autoimmune hepatitis, Paul???s disease and liver cancer tumor marker were within normal limits. EGD 07.22.21 2 columns of nonbleeding grade 2 esophageal varices in the lower third of the esophagus with 4 bleeding angiodysplastic lesions in the anterior wall of the gastric body and 2 bleeding angiodysplastic lesions in the duodenum. ??? US 07.22.21 hepatic measurement 13.7cm with coarse echotexture with microlobulated contours. EGD 07.24.21 found erythematous mucosa of the stomach and nonbleeding gastric ulcers with no stigmata of recent bleeding as well as duodenitis and chronic gastritis with portal hypertensive gastropathy. Esophageal banding performed for grade II esophageal varices. OV 08.09.21 start colestipol, continue protonix and ursodiol. ??? OV 11.06.21 Continues with PPI and ursodiol; not taking lactulose. ??? CT abd/pel 11.17.21 found diffuse contour of the liver consistent with cirrhotic changes and diffuse fatty infiltration of the liver. Small amount of fluid in keeping with ascites. Dilation of proximal common bile duct with transverse dimension of 1.6cm. Mild splenomegaly. Varicosities seen in splenic hilum. Small hiatal hernia. Diverticulosis. US abd and elastography 11.20.21 with liver measurement 13.5cm with heterogeneous echogenicity of the liver with a stiffness of 18 kPa compatible with F4. EGD . recently bleeding grade III esophageal varices, banded; portal hypertensive gastropathy. No specimens collected. OV 4..22 without HE signs. Loose stools with diet triggers are a difficulty. OV 6..22repeat EGD and biochemical workup. ?EGD 8..22 small <5mm esophageal varices; portal HTN gastropathy; duoden (more content not included)... Normal [facility] Cardiology Visit Reporton Cardiology Visit Report [facility] [address] [place] [address] OFFICE VISIT Date of Service: 02/08/25 MR#: [id number] Acct: [id number] Name: ROBBIN MORSE Rep #: [id number] : 1955 Provider: PAUL Ellis Age/Sex: 69/F [place] [facility] [place] Status: Signed HPI HPI History of Present Illness Details: Robbin Morse is a 69 year old female that presents here today for a cardiovascular follow up. She has a hx of hypertension, diabetes mellitus, hyperlipidemia, history of atrial fibrillation. Patient underwent A. fib ablation in 2019. She had previously had an episode of GI bleeding with a hemoglobin going down to 6.6 and now has a diagnosis of stage IV cirrhosis as well as nonalcoholic steatohepatitis. Since last seen, approximately 1 year ago, patient reports doing well from a cardiac standpoint. Patient did experience a foot injury in the wintertime that has limited her physical activity. [place] and was able to tolerate hiking with her family. Patient reports chronic fatigue x 2 years now in which is explained as decreased energy. Patient reports dizziness that she relates to side effects from medications. Patient reports shortness of breath with activity and occasional shortness of breath at rest that has been going on for approximately 1 year. Prior to foot injury, patient was routinely walking and tolerating her normal level of exercise. Patient reports noticing palpitations/fluttering 1???2 times per year since her ablation. Further ROS below. Intake Vital Signs 02/11/24 10:07 02/08/25 07:38 Height 5 ft 1 in 5 ft 1 in Weight: 127 lb BMI 24.0 BP 122/71 H Blood Pressure Location Lt brachial Position Sitting Respiration 18 Pulse 77 Pulse Source Monitor Pulse Oximetry (%) 100 Intake Visit Reasons: 1 Y FU Technical Writer Required: No Is patient in pain?: No Allergies diltiazem (From Cardizem) Adverse Reaction (Intermediate, Verified 02/08/25 10:52) elevates glucose sitagliptin (From Januvia) Adverse Reaction (Intermediate, Verified 02/08/25 10:52) CP/SOB pioglitazone (From Actos) Adverse Reaction (Verified 02/08/25 10:52) Swelling Mcvsicw-ZQA-ZiS Reductase Inhibitor (Pmjwbrj-Fdj-Uwg Reductase Inhibitor) Adverse Reaction (Verified 02/08/25 10:52) MAKES MY LEGS ACHE Medications ???Medication ???Instructions ???Recorded ???Confirmed ???Type cholecalciferol (vitamin D3) 25 25 mcg PO DAILY supplement 2 02/08/25 History mcg (1,000 unit) tablet (Vitamin D3) glimepiride 4 mg tablet 4 mg PO DAILY diabetes 12/12/22 History ezetimibe 10 mg tablet 10 mg PO DAILY Cholesterol 4 02/08/25 History glimepiride 4 mg tablet 2 mg PO QHS diabetes 12/31/2301/26 History famotidine 20 mg tablet 20 mg PO BID Stomach acid 90 days 05/11/24 02/08/25 Rx #180 tabs ferrous sulfate 325 mg (65 mg 325 mg PO DAILY supplement 4 02/08/25 History iron) tablet colestipol 1 gram tablet 1 g PO DAILY PRN Diarrhea #90 tabs 07/04/24 02/08/25 Rx 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 02/08/25 Rx #180 tabs magnesium oxide 400 mg (241.3 mg 400 mg PO TID supplement 1 month 1 02/08/25 Rx magnesium) tablet #90 tabs spironolactone 50 mg tablet 50 mg PO DAILY BP #90 tabs 4 02/08/25 Rx carvedilol 6.25 mg tablet 6.25 mg PO BID BP #180 tabs 02/08/25 Rx furosemide 20 mg tablet (Lasix) 20 mg PO Q OTHER DAY edema 5 History levothyroxine 25 mcg tablet 25 mcg PO QDAY 02/08/25 02/08/25 H istory metformin 500 mg tablet 1,000 mg PO BID diabetes 02/08/25 02/08/25 History Ejection fraction %: 55 Have you fallen in the past year?: Yes PFSH Medical History (Updated 02/08/25 @ 12:07 by PAUL Ellis) Cataract (lens) fragments in eye following cataract surgery, bilateral Chronic kidney disease (CKD) Difficult intravenous access Wears glasses History of GI bleed History of ulceration Non-smoker Shortness of breath on exertion History of echocardiogram Cardiology follow-up encounter History of rheumatic fever Esophageal varices Renal insufficiency Vitamin B 12 deficiency Pulmonary HTN Rheumatic mitral insufficiency Hyperlipidemia Essential hypertension Acquired thrombocytopenia Diarrhea Anemia Bleeding tendency Post-menopausal Restless legs History of stress test Irregular heartbeat Thrombocytopenia Cirrhosis Acute on chronic blood loss anemia Diabetes Atrial fibrillation Surgical History History of bilateral cataract extraction ( 08/2023) History of colonoscopy S/P ablation of atrial fibrillation History of cholecystectomy History of Hist (more content not included)... Normal [facility] ABD Limited w/ Elastographyo n 01-29-2025 ABD Limited w/ Elastography [facility] [address] [place] [address] [id number] ABD Limited w/ Elastography MR#: [id number] Acct: [id number] Name: ROBBIN MORSE Rep #: [id number] : 1955 F 69 From: Hans hinds MD PCP: Dr. Billy Culp MD Status: REG CLI Study: ABD Limited w/ Elastography Date of Exam: 02/19 Exam# [id number] Ordering Dr: Stanley Garcia MD PROCEDURE: ABD LIMITED W/ ELASTOGRAPHY REASON FOR EXAM: CIRRHOSIS WITH VARICES COMPARISON: Comparison is made with prior study dated September 04, 2023. TECHNIQUE: Right upper quadrant abdominal ultrasound. Michael ElastQ Imaging shear wave elastography for non- invasive assessment of liver tissue stiffness. Michael EPIQ Elite. FINDINGS: LIVER: Size: Unremarkable Length: 12.2 cm Echotexture: Coarsened Contour: Normal Lesions: None identified Elastography: EQI Med: 18.9 kPa EQI Med Marquez: 2.49 m/s IQR/Med: 18.5 %* GALLBLADDER: Surgically absent. COMMON BILE DUCT: Dilated measuring up to 13 mm. This most likely secondary to prior cholecystectomy.. PANCREAS: Visualized portions are sonographically unremarkable. Visualized portions of the right kidney are unremarkable. Moderate amount of ascites seen in the right upper quadrant. The spleen is not enlarged. It measures 12.3 cm 5.7 cm 4.8 cm. US/ABD Limited w/ Elastography IMPRESSION: SEVERE HEPATIC FIBROSIS / CIRRHOSIS Reference Values: SRU <1.37 m/s (5.7kPa): No to mild fibrosis 1.37 m/s - 2.2 m/s: Moderate to severe fibrosis >2.2 m/s (15kPa): Significant fibrosis / cirrhosis METAVIR Score F2 or higher: 1.34 m/s (5.7kPa) F3 or higher: 1.55 m/s (7.3kPa) F4: 1.80 m/s (10kPa) * If the IQR/Med is >30%, the variance in the measurements is a large and the accuracy of the measurement may be in question. Reading Location: [place] [address] CC: Dr. Billy Culp MD; Dr. Stanley Garcia MD Help Desk Coordinator: Signed Normal [facility] Absolute neutrophil countOrd ered By: Stanley Garcia on 01-29-2025 Neutrophils (Bld) [#/Vol] 4.2 10*3/uL 2.0-7.7 [facility] Ammoniaon 01-29-2025 Ammonia (P) [Moles/Vol] 19.5 umol/L Normal 11-51 [facility] Comment on above: Performed By: #### L 500.4050, L300.3900, L100.0100, L501.6710, L506.1001, L503.5510 ####[facility] [address] [place], [address] Anion gap in Serum or Plasma Ordered By: Stanley Garcia on 01-29-2025 Anion gap [Moles/Vol] 10 mmol/L 5-15 [facility] [place] [facility] BUN/creatinine ratioOrdered By: Stanley Garcia on 01-29-2025 Urea nitrogen/Creatinine [Mass ratio] 14.1 mg/mg 10-20 [facility] Basophil percentageOrdered B y: Stanley Garcia on 01-29-2025 Basophils/100 WBC (Bld) 0.6 % 0-1 [facility] Bilirubin, totalOrdered By: Stanley Garcia on 01-29-2025 Bilirubin [Mass/Vol] 1.11 mg/dL 0.00-1.30 [facility] CBC W/Diff, Automatedon PLT EST MOD DEC Normal ADEQ [facility] Comment on above: Performed By: #### L 500.4050, L300.3900, L100.0100, L501.6710, L506.1001, L503.5510 ####[facility] [address] [place], [address] CRPon 01-29-2025 C-REACTIVE PROT 14.20 mg/L High 0.0-3.0 [facility] Comment on above: Performed By: #### L 500.4050, L300.3900, L100.0100, L501.6710, L506.1001, L503.5510 ####[facility] [address] [place], [address] CRP [Mass/Vol]Ordered By: Carolina Garcia on 01-29-2025 C-Reactive Protein Extended Range 14.20 mg/L High 0.0-3.0 [facility] Calcium SerPl-mCncon 025 Calcium [Mass/Vol] 10.1 mg/dL Normal 8.5-10.2 [facility] Comment on above: Order Comment: Speci men Type: BLOOD SPECIMENOrdering Facility: [facility] Address: [address] [place] [address] Performed By: #### 1 7861-6 ####[facility] [id number] [place] [address] [place] Carbon dioxide, total [Moles /volume] in Central venous bloodOrdered By: Stanley Garcia on 01-29-2025 CO2 [Moles/Vol] 20.1 mmol/L Low 21.0-32.0 [facility] Chloride assayOrdered By: Carolina Garcia on 01-29-2025 Chloride [Moles/Vol] 104 mmol/L 98-108 [facility] Comprehensive Metabolic Prof ilon 01-29-2025 Albumin [Mass/Vol] 3.5 g/dL Normal 3.4-4.[address] [facility] Comment on above: Performed By: #### L 500.4050, L300.3900, L100.0100, L501.6710, L506.1001, L503.5510 ####[facility] [address] [place], [address] Albumin/Globulin [Mass ratio] 1.0 {ratio} Normal 0.9-2.4 [facility] Comment on above: Performed By: #### L 500.4050, L300.3900, L100.0100, L501.6710, L506.1001, L503.5510 ####[facility] [address] [place], [address] ALK PHOS 115 U/L High 35-104 [facility] Comment on above: Performed By: #### L 500.4050, L300.3900, L100.0100, L501.6710, L506.1001, L503.5510 ####[facility] [address] [place], [address] ALT [Catalytic activity/Vol] 32 U/L Normal <=34 [facility] Comment on above: Performed By: #### L 500.4050, L300.3900, L100.0100, L501.6710, L506.1001, L503.5510 ####[facility] [address] [place], [address] AST [Catalytic activity/Vol] 42 U/L High <=31 [facility] Comment on above: Performed By: #### L 500.4050, L300.3900, L100.0100, L501.6710, L506.1001, L503.5510 ####[facility] [address] [place], [address] Bilirubin [Mass/Vol] 1.11 mg/dL Normal 0.00-1.30 [facility] Comment on above: Performed By: #### L 500.4050, L300.3900, L100.0100, L501.6710, L506.1001, L503.5510 ####[facility] [address] [place], [address] BUN/CRE 14.1 RATIO Normal 10-20 [facility] Comment on above: Performed By: #### L 500.4050, L300.3900, L100.0100, L501.6710, L506.1001, L503.5510 ####[facility] [address] [place], [address] Calcium [Mass/Vol] 9.7 mg/dL Normal 7.6-11.[address] [facility] Comment on above: Performed By: #### L 500.4050, L300.3900, L100.0100, L501.6710, L506.1001, L503.5510 ####[facility] [address] [place], [address] Chloride [Moles/Vol] 104 mmol/L Normal 98-108 [facility] Comment on above: Performed By: #### L 500.4050, L300.3900, L100.0100, L501.6710, L506.1001, L503.5510 ####[facility] [address] [place], [address] CO2 [Moles/Vol] 20.1 mmol/L Low 21.0-32.0 [facility] Comment on above: Performed By: #### L 500.4050, L300.3900, L100.0100, L501.6710, L506.1001, L503.5510 ####[facility] [address] [place], [address] Creatinine [Mass/Vol] 1.25 mg/dL High 0.70-1.20 [facility] [place] [facility] Comment on above: Performed By: #### L 500.4050, L300.3900, L100.0100, L501.6710, L506.1001, L503.5510 ####[facility] [address] [place], [address] GAP 10 Normal 5-15 [facility] Comment on above: Performed By: #### L 500.4050, L300.3900, L100.0100, L501.6710, L506.1001, L503.5510 ####[facility] [address] [place], [address] GFR/1.73 sq M.predicted among non-blacks MDRD (S/P/Bld) [Vol rate/Area] 47 mL/min/{1.73_m2} Low >60 [facility] Comment on above: Result Comment: mL/m in/1.73m2 CKD-EPI Creatinine Equation (2020) Performed By: #### L 500.4050, L300.3900, L100.0100, L501.6710, L506.1001, L503.5510 ####[facility] [address] [place], [address] Globulin (S) [Mass/Vol] 3.7 g/dL Normal 2.2-4.2 [facility] Comment on above: Performed By: #### L 500.4050, L300.3900, L100.0100, L501.6710, L506.1001, L503.5510 ####[facility] [address] [place], [address] Glucose [Mass/Vol] 177 mg/dL High 70-[address] [facility] Comment on above: Performed By: #### L 500.4050, L300.3900, L100.0100, L501.6710, L506.1001, L503.5510 ####[facility] [address] [place], [address] Potassium [Moles/Vol] 4.9 mmol/L Normal 3.3-5.1 [facility] [place] [facility] Comment on above: Performed By: #### L 500.4050, L300.3900, L100.0100, L501.6710, L506.1001, L503.5510 ####[facility] [address] [place], [address] Sodium [Moles/Vol] 135 mmol/L Normal 133-[address] [facility] Comment on above: Performed By: #### L 500.4050, L300.3900, L100.0100, L501.6710, L506.1001, L503.5510 ####[facility] [address] [place], [address] T PROT 7.2 g/dL Normal 5.9-8.4 [facility] Comment on above: Performed By: #### L 500.4050, L300.3900, L100.0100, L501.6710, L506.1001, L503.5510 ####[facility] [address] [place], [address] Urea nitrogen [Mass/Vol] 18 mg/dL Normal 4-19 [facility] Comment on above: Performed By: #### L 500.4050, L300.3900, L100.0100, L501.6710, L506.1001, L503.5510 ####[facility] [address] [place], [address] Eosinophil percentageOrdered By: Stanley Garcia on 01-29-2025 Eosinophils/100 WBC (Bld) 3.9 % 0-5 [facility] Erythrocyte distribution wid th (RBC) [Ratio]Ordered By: Stanley Garcia on 01-29-2025 Erythrocyte distribution width (RBC) [Entitic vol] 52.6 fL High 35.1-43.9 [facility] Erythrocyte distribution wid th ratioOrdered By: Stanley Garcia on 01-29-2025 Erythrocyte distribution width (RBC) [Ratio] 14.3 % 11.6-14.6 [facility] GFR/1.73 sq M.predicted margarito g non-blacks MDRD (S/P/Bld) [Vol rate/Area]Ordered By: Stanley Garcia on 01-29-2025 Estimated GFR (MDRD) Non-Af Amer 47 Low >60 [facility] Comment on above: mL/min/1.73m2 CKD-EP I Creatinine Equation (2020) Hematocrit Auto (Bld) [Volum e fraction]Ordered By: Stanley Garcia on 01-29-2025 Hematocrit (Bld) [Volume fraction] 29.9 % Low 37-47 [facility] Hemoglobin measurementOrdere d By: Stanley Garcia on 01-29-2025 Hemoglobin (Bld) [Mass/Vol] 10.1 g/dL Low 12.0-15.0 [facility] Immature granulocytes/100 WB C Auto (Bld)Ordered By: Stanley Garcia on 01-29-2025 Immature granulocytes/100 WBC (Bld) 0.400 % 0.0-0.9 [facility] Comment on above: IG% - Immature Granu locytes (promyelocytes, myelocytes and metamyelocytes) > 1% indicates that a LEFT SHIFT is Present. International normalized rat io (INR) calculationOrdered By: Stanley Garcia on 01-29-2025 INR Coag (Bld) [Relative time] 1.1 {INR} [facility] Laboratory - Chemistry and C hemistry - challengeOrdered By: Stanley Garcia on 01-29-2025 AST [Catalytic activity/Vol] 42 U/L High <32 [facility] Lymphocytes Auto (Unsp spec) [#/Vol]Ordered By: Stanley Garcia on 01-29-2025 Lymphocytes (Bld) [#/Vol] 0.55 10*3/uL Low 0.83-4.51 [facility] Lymphocytes/100 WBC Auto (Un sp spec)Ordered By: Stanley Garcia on 01-29-2025 Lymphocytes/100 WBC (Bld) 10.3 % Low 19-41 [facility] MCV (mean corpuscular volume ) determinationOrdered By: Stanley Garcia on 01-29-2025 MCV (RBC) [Entitic vol] 101.0 fL High 81-99 [facility] Mean corpuscular hemoglobin (MCH) determinationOrdered By: Stanley Garcia on 01-29-2025 MCH (RBC) [Entitic mass] 34.1 pg High 27.0-32.0 [facility] Mean corpuscular hemoglobin concentration (MCHC) determinationOrdered By: Stanley Garcia on 01-29-2025 MCHC (RBC) [Mass/Vol] 33.8 g/dL 32-36 [facility] [place] [facility] Mean platelet volume determi nationOrdered By: Stanley Garcia on 01-29-2025 Platelet mean volume (Bld) [Entitic vol] 9.9 fL 6.2-12.0 [facility] Monocyte percentageOrdered B y: Stanley Garcia on 01-29-2025 Monocytes/100 WBC (Bld) 6.9 % 0-10 [facility] Neutrophil percentageOrdered By: Stanley Garcia on 01-29-2025 Neutrophils/100 WBC (Bld) 77.9 % High 47-70 [facility] Nucleated red blood cell per centageOrdered By: Stanley Garcia on 01-29-2025 Nucleated RBC/100 WBC (Bld) [Ratio] 0 % 0-5 [facility] Platelet countOrdered By: Carolina Garcia on 04-04-2025 Platelets (Bld) [#/Vol] 75 10*3/uL Low 150-450 [facility] Platelets LM Ql (Bld)Ordered By: Stanley Garcia on 01-29-2025 Platelet Estimate MOD DEC ADEQ [facility] Potassium (Unsp spec) [Mass/ Vol]Ordered By: Stanley Garcia on 01-29-2025 Potassium [Moles/Vol] 4.9 mmol/L 3.3-5.1 [facility] [place] [facility] Prothrombin Time w/INRon INR Coag (PPP) [Relative time] 1.1 {INR} Normal [facility] Comment on above: Performed By: #### L 500.4050, L300.3900, L100.0100, L501.6710, L506.1001, L503.5510 ####[facility] [address] [place], [place], [phone] PT Coag (PPP) [Time] 14.2 s Normal 11.7-14.9 [facility] Comment on above: Performed By: #### L 500.4050, L300.3900, L100.0100, L501.6710, L506.1001, L503.5510 ####[facility] [address] [place], [place], [address] Prothrombin timeOrdered By: Stanley Garcia on 01-29-2025 PT Coag (PPP) [Time] 14.2 s 11.7-14.9 [facility] RBC Auto (Bld) [#/Vol]Ordere d By: Stanley Garcia on 01-29-2025 RBC (Bld) [#/Vol] 2.96 10*6/uL Low 4.2-5.4 [facility] Serum creatinine measurement (mass/volume)Ordered By: Stanley Garcia on 01-29-2025 Creatinine [Mass/Vol] 1.25 mg/dL High 0.70-1.20 [facility] [place] [facility] Serum globulin measurementOr dered By: Stanley Garcia on 01-29-2025 Globulin (S) [Mass/Vol] 3.7 g/dL 2.2-4.2 [facility] Serum glucose measurement (m ass/volume)Ordered By: Stanley Garcia on 01-29-2025 Glucose [Mass/Vol] 177 mg/dL High 70-[address] [facility] Serum or plasma alanine balderas otransferase (ALT) measurementOrdered By: Stanley Garcia on 01-29-2025 ALT [Catalytic activity/Vol] 32 U/L <35 [facility] Serum or plasma albumin tabatha urement (mass/volume)Ordered By: Stanley Garcia on 01-29-2025 Albumin [Mass/Vol] 3.5 g/dL 3.4-4.[address] [facility] Serum or plasma albumin/glob ulin mass ratioOrdered By: Stanley Garcia on 01-29-2025 Albumin/Globulin [Mass ratio] 1.0 {ratio} 0.9-2.4 [facility] Serum or plasma alkaline zaynab sphatase measurementOrdered By: Stanley Garcia on 01-29-2025 ALP [Catalytic activity/Vol] 115 U/L High 35-104 [facility] Serum or plasma calcium tabatha urement (mass/volume)Ordered By: Stanley Garcia on 01-29-2025 Calcium [Mass/Vol] 9.7 mg/dL 7.6-11.[address] [facility] Serum or plasma urea nitroge n measurement (mass/volume)Ordered By: Stanley Garcia on 01-29-2025 Urea nitrogen [Mass/Vol] 18 mg/dL 4-19 [facility] Sodium levelOrdered By: Rosario Garcia on 01-29-2025 Sodium [Moles/Vol] 135 mmol/L 133-[address] [facility] T4 Free SerPl-mCncon 025 Free T4 [Mass/Vol] 1.7 ng/dL Normal 0.9-1.7 [facility] Comment on above: Order Comment: Speci men Type: BLOOD SPECIMENOrdering Facility: [facility] Address: [address] [place] [address] [place] [address] Performed By: #### 3 016-3, 3024-7 ####[facility] LABCLIA [id number] [address] STATES OF [place] TSH SerPl-aCncon 01-29-2025 TSH Qn 4.510 m[IU]/L High 0.270-4.200 [facility] Comment on above: Order Comment: Speci men Type: BLOOD SPECIMENOrdering Facility: [facility] Address: [address] [place] [address] Performed By: #### 3 016-3, 3024-7 ####[facility] LABCLIA [id number] [address] STATES OF [facility] Total proteinOrdered By: Roxanna Garcia on 01-29-2025 Protein [Mass/Vol] 7.2 g/dL 5.9-8.[address] [facility] Venous blood ammonia measure mentOrdered By: Stanley Garcia on 01-29-2025 Ammonia (P) [Moles/Vol] 19.5 umol/L 11-51 [facility] Vitamin D, 25-hydroxyOrdered By: Stanley Garcia on 01-29-2025 Vitamin D 25-Hydroxy 49.6 ng/mL 30-100 [facility] Comment on above: Vitamin D StatusDefi ciency: <20 ng/mL (50nmol/L)Insufficiency: 20-30 ng/mL (50-75 nmol/L)Sufficiency: 30-100 ng/mL (75-250 nmol/L)Toxicity: >100 ng/mL (>250 nmol/L) Vitamin D,25 Hydroxyon 01-29 Vitamin D 25-OH 49.6 ng/mL Normal 30-100 [facility] Comment on above: Result Comment: Rachna min D Status Deficiency: <20 ng/mL (50nmol/L) Insufficiency: 20-30 ng/mL (50-75 nmol/L) Sufficiency: 30-100 ng/mL (75-250 nmol/L) Toxicity: >100 ng/mL (>250 nmol/L) Performed By: #### L 500.4050, L300.3900, L100.0100, L501.6710, L506.1001, L503.5510 ####[facility] [address] [place], [address] White blood cell (WBC) count Ordered By: Stanley Garcia on 01-29-2025 WBC (Bld) [#/Vol] 5.4 10*3/uL 4.4-11.0 [facility] 11-09-2024 CN Office Visit (UCWSTR ) ROBBIN MORSE ([id number]) 1955 F Date Time Provider Department 11/09/24 4:15 PM RYAN KIDD [facility] During your visit today, we recorded the following information about you: Temperature Pulse Respiration Blood pressure 98.3 degrees 77/minute 18/minute 132/68 Weight 57.8 kg Ryan Kidd MD 11/09/2024 4:30 PM Signed Patient presents with: right foot pain: Injured it yesterday when she stood too fast HPI: Right foot pain: Duration: Stood up last night and found her right foot was asleep Location: lateral and bottom of the right foot Character: sharp with weight Radiation: No. Aggravating: standing and walking Relieving: elevation Pain relievers: none Associated: bruising Pertinent negatives: Denies numbness Normal bone marrow density 2021. MEDICATIONS: glimepiride (AMARYL) 4 mg tablet Take 1 tablet by mouth two times a day with meals. spironolactone (ALDACTONE) 50 mg tablet Take 1 tablet by mouth once daily. Take tablet daily ezetimibe (ZETIA) 10 mg tablet Take 1 tablet by mouth once daily. metFORMIN (GLUCOPHAGE) 500 mg tablet Take 2 tablets by mouth two times a day. levothyroxine (SYNTHROID) 25 mcg tablet Take 1 tablet by mouth once daily. Take on empty stomach. For thyroid. Benzonatate 200 mg capsule Take 1 capsule by mouth three times a day as needed. furosemide (LASIX) 20 mg tablet Take 20 mg by mouth two times a day. 1 tablet daily for 2 weeks; then increase to 1 tablet every other day. Per Dr. Garcia. magnesium oxide (MAG-OX) 400 mg (241.3 mg magnesium) tablet Take 1 tablet by mouth two times a day. cholecalciferol (VITAMIN D) 1,000 unit tab tablet Take 1,000 Units by mouth once daily. carvedilol (COREG) 6.25 mg tablet Take 1 tablet by mouth twice daily with meals. Per Cardio, Dr. Groves famotidine (PEPCID) 40 mg tablet Take 1 tablet by mouth once daily. Per GI: Friend ursodiol (REBECCA) 250 mg tablet Take 250 mg by mouth twice daily. ALLERGIES: ALLERGIES Allergen Reactions Actos [Pioglitazone* Swelling dyspnea Cardizem [Diltiazem* Other: See Comments states it makes her blood sugar tali high Ferrous Sulfate Other: See Comments Upset stomach Januvia [Sitaglipti* Shortness of Breath chest pain and shortness of breath Lipitor [Atorvastat* Other: See Comments myalgia Lisinopril Other: See Comments elevated creatinine, swelling Pravastatin Other: See Comments Leg cramps Zocor [Simvastatin] Intolerance VITALS: BP 132/68 Pulse 77 Temp 36.8 ?C (98.3 ?F) (Tympanic) Resp 18 Wt 57.8 kg (127 lb 6.8 oz) LMP 10/14/2005 SpO2 100% BMI 24.08 kg/m? PHYSICAL EXAM: GEN: pleasant, alert, no acute distress FOOT/ANKLE: right . Mild Swelling and ecchymosis over the 5th metatarsal. Range of motion: inversion - non-painful, eversion - non-painful, anterior drawer- non-painful. painful to bear weight. limping gait. Palpation: Medial malleolus non-painful, lateral malleolus non-painful, Dorsal proximal midfoot - non-painful, 5th metatarsal painful, posterior calcaneus non-painful ASSESSMENT/PLAN: 1. Nondisplaced fracture of fifth metatarsal bone, right foot, initial encounter for closed fracture - ICD9: 825.25, ICD10: S92.354A (primary diagnosis) 2. Foot pain, right - ICD9: 729.5, ICD10: M79.671 - XR FOOT GENERAL 3V AP/LAT/OBL RIGHT 1. Acute nondisplaced fractures of the base of the fifth metatarsal. 2. Probable acute chip fracture of the dorsal navicular. No tenderness on exam to coincide with navicular fracture. Follow up with ortho or podiatry. - CONSULT TO ORTHOPAEDICS - established with [place] [facility] and will call the hospital for follow up. Placed in post-op shoe. She will use a cane from home to reduce weight bearing. Ryan Kidd MD Allergies As of Date: 11/09/2024 Noted Allergy Reaction ACTOS (PIOGLITAZONE HCL) 04/19/2017 [...] (SIMVASTATIN) 09/10/2011 5 - Intolerance Date Reviewed: 10/05/2024 Reviewed by: Carolyn Vargas LPN - Fully Assessed Reason for Visit: right foot pain [Other] Cmt: Injured it yesterday when she stood too fast Primary Visit Diagnosis:Nondisplaced fracture of fifth metatarsal bone, right foot, initial encounter for closed fracture [S92.354A] Other Visit Diagnosis:Foot pain, right [M79. (more content not included)... Normal [facility] XR FOOT 3V AP/LAT/OBL RTon 0 - XR FOOT 3V AP/LAT/OBL RT * * *Final Report* * * DATE OF EXAM: Nov 09 2024 3:52PM WOX [id number] - XR FOOT 3V AP/LAT/OBL RT / PROCEDURE REASON: Foot pain, right * * * * Physician Interpretation * * * * TITLE: XR FOOT 3V AP/LAT/OBL RT CLINICAL INDICATION: Pain TECHNIQUE: 3 view radiographic study of the right foot COMPARISON: None FINDINGS: Osseous demineralization. Acute, transverse oblique nondisplaced fracture through the base of the fifth metatarsal. Probable additional chip fracture of the dorsal aspect of the navicular, best seen on the lateral film. Scattered joint space narrowing of the interphalangeal joints. Dorsal calcaneal enthesophyte. IMPRESSION: 1. Acute nondisplaced fractures of the base of the fifth metatarsal. 2. Probable acute chip fracture of the dorsal navicular. Help Desk Coordinator: [facility] Transcribe Date/Time: Nov 09 2024 3:56P Dictated by : ROMEL PAULSON MD This examination was interpreted and the report reviewed and electronically signed by: ROMEL PAULSON MD on Nov 09 2024 3:58PM EST [id number] Normal [facility] XR Foot - right AP and Later al and obliqueon 11-09-2024 IMPRESSION: 1. Acute nondisplaced fractures of the base of the fifth metatarsal. 2. Probable acute chip fracture of the dorsal navicular. Help Desk Coordinator: [facility] Transcribe Date/Time: Nov 09 2024 3:56P Dictated by : ROMEL PAULSON MD This examination was interpreted and the report reviewed and electronically signed by: ROMEL PAULSON MD on Nov 09 2024 3:58PM EST DIVISION OF RADIOLOGY * * *Final Report* * * DATE OF EXAM: Nov 09 2024 3:52PM WOX [id number] - XR FOOT 3V AP/LAT/OBL RT / PROCEDURE REASON: Foot pain, right * * * * Physician Interpretation * * * * TITLE: XR FOOT 3V AP/LAT/OBL RT CLINICAL INDICATION: Pain TECHNIQUE: 3 view radiographic study of the right foot COMPARISON: None FINDINGS: Osseous demineralization. Acute, transverse oblique nondisplaced fracture through the base of the fifth metatarsal. Probable additional chip fracture of the dorsal aspect of the navicular, best seen on the lateral film. Scattered joint space narrowing of the interphalangeal joints. Dorsal calcaneal enthesophyte. DIVISION OF RADIOLOGY Provider, [facility] - 11/09/2024 * * *Final Report* * * DATE OF EXAM: Nov 09 2024 3:52PM WOX [id number] - XR FOOT 3V AP/LAT/OBL RT / PROCEDURE REASON: Foot pain, right * * * * Physician Interpretation * * * * TITLE: XR FOOT 3V AP/LAT/OBL RT CLINICAL INDICATION: Pain TECHNIQUE: 3 view radiographic study of the right foot COMPARISON: None FINDINGS: Osseous demineralization. Acute, transverse oblique nondisplaced fracture through the base of the fifth metatarsal. Probable additional chip fracture of the dorsal aspect of the navicular, best seen on the lateral film. Scattered joint space narrowing of the interphalangeal joints. Dorsal calcaneal enthesophyte. IMPRESSION IMPRESSION: 1. Acute nondisplaced fractures of the base of the fifth metatarsal. 2. Probable acute chip fracture of the dorsal navicular. Help Desk Coordinator: [facility] Transcribe Date/Time: Nov 09 2024 3:56P Dictated by : ROMEL PAULSON MD This examination was interpreted and the report reviewed and electronically signed by: ROMEL PAULSON MD on Nov 09 2024 3:58PM EST [facility] Radiology Study observation (narrative) [facility] XR Foot - right AP and Later al and obliqueOrdered By: Ccf Provider on 11-09-2024 [facility] 10-06-2024 [facility] ([id number]) 1955 F Date Time Provider Department 10/06/24 SUZIE LECHUGA [facility] During your visit today, we recorded the following information about you: Suzie Lechuga PA-C 10/06/2024 10:30 AM Signed A1c is up to 7.5%. we have 3 options. 1. increase her glimepiride to a full tablet in PM 2. Start an once weekly injectable called ozempic (or other preferred option from insurance) 3. No med changes and have her work on her diet more. Which does she prefer? NANETTE Sebastian Sherill A, LPN 10/06/2024 10:43 AM Signed Pt notified of results and instructions. Pt would like to try the medication increase. She would like 90 day supply sent to [facility] d/t cost. If provider is not comfortable with sending a 90 day supply she is agreeable to use [facility]. No need to contact pt unless additional instructions or rx has been sent to [facility]. DELGADO Brito Rayanne, PA-C 10/06/2024 11:10 AM Signed The following approved medication requests have been transmitted electronically. Requested Prescriptions Signed Prescriptions Disp Refills glimepiride (AMARYL) 4 mg tablet 180 tablet 1 Sig: Take 1 tablet by mouth two times a day with meals. Authorizing Provider: SUZIE LECHUGA PA-C Allergies As of Date: 10/06/2024 Noted Allergy Reaction ACTOS (PIOGLITAZONE HCL) 04/19/2017 [...] (SIMVASTATIN) 09/10/2011 5 - Intolerance Date Reviewed: 10/05/2024 Reviewed by: Carolyn Vargas LPN - Fully Assessed Reason for Visit: Results [95] Order(s):glimepiride (AMARYL) 4 mg tabletTake 1 tablet by mouth two times a day with meals.Disp: 180 tabletRfl: 1 Prescriptions as of 10/06/2024 - glimepiride (AMARYL) 4 mg tablet Take 1 tablet by mouth two times a day with meals. - spironolactone (ALDACTONE) 50 mg tablet Take 1 tablet by mouth once daily. Take tablet daily - ezetimibe (ZETIA) 10 mg tablet Take 1 tablet by mouth once daily. - metFORMIN (GLUCOPHAGE) 500 mg tablet Take 2 tablets by mouth two times a day. - levothyroxine (SYNTHROID) 25 mcg tablet Take 1 tablet by mouth once daily. Take on empty stomach. For thyroid. - Benzonatate 200 mg capsule Take 1 capsule by mouth three times a day as needed. - furosemide (LASIX) 20 mg tablet Take 20 mg by mouth two times a day. 1 tablet daily for 2 weeks; then increase to 1 tablet every other day. Per Dr. Garcia. - magnesium oxide (MAG-OX) 400 mg (241.3 mg magnesium) tablet Take 1 tablet by mouth two times a day. - cholecalciferol (VITAMIN D) 1,000 unit tab tablet Take 1,000 Units by mouth once daily. - carvedilol (COREG) 6.25 mg tablet Take 1 tablet by mouth twice daily with meals. Per Cardio, Dr. Groves - famotidine (PEPCID) 40 mg tablet Take 1 tablet by mouth once daily. Per GI: Dr. Martinez - ursodiol (REBECCA) 250 mg tablet Take 250 mg by mouth twice daily. Problem List As Of Date 10/06/2024 Noted Resolved Anxiety [F41.9] 06/30/2009 12/29/2015 Cervicalgia [...] 07/24/2021 Secondary esophageal varices with bleeding (HCC*07/24/2021 08/04/2024 Stage 3b chronic kidney disease (HCC) [N18.32] 08/21/2021 Diabetic eye exam (HCC) [Z01.00, E11.9] 12/20/2021 Encounter for Medicare annual wellness exam [Z0*03/08/2022 Living will on file at physician's office [Z78.*03/08/2022 Advance directive discussed with patient [Z71.8*03/08/2022 Renal stone [N20.0] 09/29/2022 Closed nondispla (more content not included)... Normal [facility] CNOVon 10-05-2024 CNOV Office Visit (FAMPWS ) ROBBIN MORSE ([id number]) 1955 F Date Time Provider Department 10/05/24 10:40 AM [facility] During your visit today, we recorded the following information about you: Temperature Pulse Respiration Blood pressure 97.4 degrees 81/minute 14/minute 102/60 Weight 55.8 kg Suzie Lechuga PA-C 10/05/2024 12:32 PM Signed Chief Complaint Patient presents with: 6 Month Exam HPI Robbin Preethi Morse is a 69 year old female who presents here today for Chronic Medical Conditions.. patient with Hx of DM 2, Hyperlipidemia, HTN, A. Fib, Valvular heart disease, CKD, Iron Def, thrombocytopenia, Leukopenia, B12 def, Pulm HTN, esophageal varices, SANCHEZ, cirrhosis as well as those reviewed and addressed below and in ROS. No specific concerns today Past medical history, appointments, medications, allergies reviewed. Previous Medical History PAST MEDICAL HISTORY Diagnosis Date Advance directive discussed with patient 03/08/2022 Discussed 02/2022 Anxiety 06/30/2009 Bilateral leg edema 04/03/2024 Chronic anticoagulation 01/22/2017 Was taken off xarelto with SANCHEZ/cirrhosis and bleeding. Cirrhosis, nonalcoholic (HCC) 07/24/[address] Martinez Closed nondisplaced fracture of left patella 04/03/202309/2022 Diabetic eye exam (HCC) 12/20/2021 Last done 12/19/21 Mild non proliterative retinopathy ou [facility] Essential hypertension, benign 11/04/2012 Hyperlipidemia, mixed 11/04/2012 Hypothyroidism, acquired 04/03/2024 Iron deficiency anemia due to chronic blood loss 09/19/2018 Leukopenia 12/23/[address] 03/08/2022 DPA: Caro () Living will on file at physician's office 03/08/2022 DPA: Caro () Medicare annual wellness visit, initial 03/08/2022 Medicare Part B: 08/28/2020 Last done: 03/08/2022 Moderate mitral regurgitation 01/22/2017 Multiple gastric ulcers 07/24/202106/2021 SANCHEZ (nonalcoholic steatohepatitis) 07/24/[address] Martinez Other specified anemias 04/03/2024 Paroxysmal atrial fibrillation (HCC) 05/16/2017 Pulmonary hypertension, secondary 01/22/2017 Renal stone 09/29/202208/2022: Analysis: calcium oxalate. S/P ablation of atrial fibrillation 01/19/2019 Dr. Chaudhry Secondary esophageal varices with bleeding (HCC) 07/24/2021 Seeing Gastro: had banding 06/2021 Secondary esophageal varices without bleeding (HCC) 08/04/2024 Seeing gastro Stage 3b chronic kidney disease (HCC) 08/21/2021 [...] ESOPHAGUS ENDOSCOPY W VARICES BANDING 07/24/2021 Dr. Friend PAST SURGICAL HISTORY OF c section x [...] on File Prior to Visit Medication Sig ezetimibe (ZETIA) 10 mg tablet Take 1 tablet by mouth once daily. glimepiride (AMARYL) 4 mg tablet Take one tab in the AM and 1/2 a tab in the PM. metFORMIN (GLUCOPHAGE) 500 mg tablet Take 2 tablets by mouth two times a day. levothyroxine (SYNTHROID) 25 mcg tablet Take 1 tablet by mouth once daily. Take on empty stomach. For thyroid. Benzonatate 200 mg capsule Take 1 capsule by mouth three times a day as needed. furosemide (LASIX) 20 mg tablet Take 20 mg by mouth two times a day. 1 tablet daily for 2 weeks; then increase to 1 tablet every other day. Per Dr. Garcia. spironolactone (ALDACTONE) 25 mg tablet Take 25 mg by mouth once daily. Take tablet daily magnesium oxide (MAG-OX) 400 mg (241.3 mg magnesium) tablet Take 1 tablet by mouth two times a day. cholecalciferol (VITAMIN D) 1,000 unit tab tablet Take 1,000 Units by mouth once daily. carvedilol (COREG) 6.25 mg tablet Take 1 tablet by mouth twice daily with meals. Per Cardio, Dr. Groves famotidine (PEPCI (more content not included)... Normal [facility] HbA1c (Bld)on 10-05-2024 Average glucose Estimated from glycated hemoglobin (Bld) [Mass/Vol] 169 mg/dL Normal [facility] Comment on above: Order Comment: Speci men Type: BLOOD SPECIMENOrdering Facility: [facility] Address: [address] [place], [place] [id number] Result Comment: eAG: (Estimated average glucose) is a calculated value from HgbA1c and is insurance claims representative of the average blood glucose level in the last 2-3 month period. Performed By: #### 5 5454-3 ####[facility] LABCLIA [id number] [place] [address] [place] HbA1c (Bld) [Mass fraction] 7.5 % High 4.3-5.6 [facility] Comment on above: Order Comment: Speci men Type: BLOOD SPECIMENOrdering Facility: [facility] Address: [address] [place] [address] Result Comment: Amer [place] Diabetes Association guidelines indicate that patients with HgbA1c in the range 5.7-6.4% are at increased risk for development of diabetes, and intervention by lifestyle modification may be beneficial. HgbA1c greater or equal to 6.5% is considered diagnostic of diabetes. Performed By: #### 5 5454-3 ####[facility] LABCLIA [id number] [place] [address] [place] CBC W Auto Differential pane l (Bld)on 09-30-2024 Basophils (Bld) [#/Vol] 0.03 10*3/uL Normal <0.11 [facility] Comment on above: Order Comment: Speci men Type: BLOOD SPECIMENOrdering Facility: [facility] Address: [address] [place] [address] Performed By: #### 5 7021-8 ####[facility]ITALWRADHALIA [id number] [place] [address] [place] Basophils/100 WBC (Bld) 0.8 % Normal [facility] Comment on above: Order Comment: Ramiroi men Type: BLOOD SPECIMENOrdering Facility: [facility] Address: [address] [place] [address] Performed By: #### 5 7021-8 ####[facility] EMERGENCYRADHALIA [id number] [place] [id number] [place] Differential cell count method Nom (Bld) Auto Normal [facility] Comment on above: Order Comment: Speci men Type: BLOOD SPECIMENOrdering Facility: [facility] Address: [address] [place] [address] Performed By: #### 5 7021-8 ####[facility] [id number] [place] [address] [place] Eosinophils (Bld) [#/Vol] 0.21 10*3/uL Normal <0.46 [facility] Comment on above: Order Comment: Speci men Type: BLOOD SPECIMENOrdering Facility: [facility] Address: [address] [place] [address] Performed By: #### 5 7021-8 ####[facility] [id number] [place] [address] [place] Eosinophils/100 WBC (Bld) 5.7 % Normal [facility] Comment on above: Order Comment: Speci men Type: BLOOD SPECIMENOrdering Facility: [facility] Address: [address] [place] [address] Performed By: #### 5 7021-8 ####[facility] EMERGENCYNCLI [id number] [place] [address] [place] Erythrocyte distribution width (RBC) [Ratio] 13.3 % Normal 11.5-15.0 [facility] Comment on above: Order Comment: Speci men Type: BLOOD SPECIMENOrdering Facility: [facility] Address: [address] [place] [address] Performed By: #### 5 7021-8 ####[facility] [id number] [place] [address] [place] Hematocrit (Bld) [Volume fraction] 28.3 % Low 36.0-46.0 [facility] Comment on above: Order Comment: Speci men Type: BLOOD SPECIMENOrdering Facility: [facility] Address: [address] [place] [address] Performed By: #### 5 7021-8 ####[facility] KRISTAVESTALMIGUEL [id number] [place] [address] [place] Hemoglobin (Bld) [Mass/Vol] 9.8 g/dL Low 11.5-15.5 [facility] Comment on above: Order Comment: Speci men Type: BLOOD SPECIMENOrdering Facility: [facility] Address: [address] [place] [address] Performed By: #### 5 7021-8 ####[facility] [id number] [place] [address] [place] Immature granulocytes (Bld) [#/Vol] 10*3/uL Normal <0.10 [facility] Comment on above: Order Comment: Speci men Type: BLOOD SPECIMENOrdering Facility: [facility] Address: [address] [place] [address] Performed By: #### 5 7021-8 ####[facility]ENCYNCL[facility] [id number] [place] [address] [place] Immature granulocytes/100 WBC (Bld) 0.3 % Normal [facility] Comment on above: Order Comment: Speci men Type: BLOOD SPECIMENOrdering Facility: [facility] Address: [address] [place] [address] Performed By: #### 5 7021-8 ####[facility]GENCYNCL[facility] [id number] [place] [address] [place] Lymphocytes (Bld) [#/Vol] 0.67 10*3/uL Low 1.00-4.00 [facility] Comment on above: Order Comment: Speci men Type: BLOOD SPECIMENOrdering Facility: [facility] Address: [address] [place] [address] Performed By: #### 5 7021-8 ####[facility] KRISTAMEGHANA [id number] [place] [address] [place] Lymphocytes/100 WBC (Bld) 18.1 % Normal [facility] Comment on above: Order Comment: Speci men Type: BLOOD SPECIMENOrdering Facility: [facility] Address: [address] [place] [address] Performed By: #### 5 7021-8 ####[facility] EMERGENCYMIGUEL [id number] [place] [address] [place] MCH (RBC) [Entitic mass] 35.1 pg High 26.0-34.0 [facility] Comment on above: Order Comment: Speci men Type: BLOOD SPECIMENOrdering Facility: [facility] Address: [address] [place] [address] Performed By: #### 5 7021-8 ####[facility] [id number] [place] [address] [place] MCHC (RBC) [Mass/Vol] 34.6 g/dL Normal 30.5-36.0 [facility] Comment on above: Order Comment: Speci men Type: BLOOD SPECIMENOrdering Facility: [facility] Address: [address] [place] [address] Performed By: #### 5 7021-8 ####[facility] EMERGENCYRADHALIA [id number] [place] [address] [place] MCV (RBC) [Entitic vol] 101.4 fL High 80.0-100.0 [facility] Comment on above: Order Comment: Speci men Type: BLOOD SPECIMENOrdering Facility: [facility] Address: [address] [place] [address] Performed By: #### 5 7021-8 ####[facility] EMERGENCYNCLIA [id number] [place] [address] [place] Monocytes (Bld) [#/Vol] 0.36 10*3/uL Normal <0.87 [facility] Comment on above: Order Comment: Speci men Type: BLOOD SPECIMENOrdering Facility: [facility] Address: [address] [place] [address] Performed By: #### 5 7021-8 ####[facility] [id number] [place] [address] [place] Monocytes/100 WBC (Bld) 9.7 % Normal [facility] Comment on above: Order Comment: Speci men Type: BLOOD SPECIMENOrdering Facility: [facility] Address: [address] [place] [address] Performed By: #### 5 7021-8 ####[facility] [id number] [place] [address] [place] Neutrophils (Bld) [#/Vol] 2.42 10*3/uL Normal 1.45-7.50 [facility] Comment on above: Order Comment: Speci men Type: BLOOD SPECIMENOrdering Facility: [facility] Address: [address] [place] [address] Performed By: #### 5 7021-8 ####[facility] [id number] [place] [address] [place] Neutrophils/100 WBC (Bld) 65.4 % Normal [facility] Comment on above: Order Comment: Speci men Type: BLOOD SPECIMENOrdering Facility: [facility] Address: [address] [place] [address] Performed By: #### 5 7021-8 ####[facility] [id number] [place] [address] [place] Nucleated RBC (Bld) [#/Vol] 10*3/uL Normal <0.01 [facility] Comment on above: Order Comment: Speci men Type: BLOOD SPECIMENOrdering Facility: [facility] Address: [address] [place] [address] Performed By: #### 5 7021-8 ####[facility] SEAN [id number] [place] [address] [place] Nucleated RBC/100 WBC (Bld) [Ratio] 0.0 /100 WBC Normal [facility] Comment on above: Order Comment: Speci men Type: BLOOD SPECIMENOrdering Facility: [facility] Address: [address] [place] [address] Performed By: #### 5 7021-8 ####[facility]ERGENCYNCCELINA [id number] [place] [address] [place] Platelet mean volume (Bld) [Entitic vol] 9.8 fL Normal 9.0-12.7 [facility] Comment on above: Order Comment: Speci men Type: BLOOD SPECIMENOrdering Facility: [facility] Address: [address] [place] [address] Performed By: #### 5 7021-8 ####[facility] [id number] [place] [address] [place] Platelets (Bld) [#/Vol] 49 10*3/uL Low 150-400 [facility] Comment on above: Order Comment: Speci men Type: BLOOD SPECIMENOrdering Facility: [facility] Address: [address] [place] [address] Result Comment: No c lot detected. Performed By: #### 5 7021-8 ####[facility]GENCYNCLIA [id number] [place] [address] [place] RBC (Bld) [#/Vol] 2.79 10*6/uL Low 3.90-5.20 [facility] Comment on above: Order Comment: Speci men Type: BLOOD SPECIMENOrdering Facility: [facility] Address: [address] [place] [address] Performed By: #### 5 7021-8 ####[facility] MILLTOWNCLIA [id number] [place] [address] [place] WBC (Bld) [#/Vol] 3.70 10*3/uL Normal 3.70-11.00 [facility] Comment on above: Order Comment: Speci men Type: BLOOD SPECIMENOrdering Facility: [facility] Address: [address] [place] [address] Performed By: #### 5 7021-8 ####[facility]PITALWNCLIA [id number] [place] [address] [place] Comprehensive metabolic 2000 panelon 09-30-2024 Albumin [Mass/Vol] 3.8 g/dL Low 3.9-4.9 [facility] Comment on above: Order Comment: Speci men Type: BLOOD SPECIMENOrdering Facility: [facility] Address: [address] [place] [address] Performed By: #### 2 4323-8 ####[facility]ENCYNCLIA [id number] [place] [address] [place] ALP [Catalytic activity/Vol] 116 U/L Normal 34-123 [facility] Comment on above: Order Comment: Speci men Type: BLOOD SPECIMENOrdering Facility: [facility] Address: [address] [place], [place] [address] Performed By: #### 2 4323-8 ####[facility]OSPITALWNCLIA [id number] [place] [address] [place] ALT [Catalytic activity/Vol] 27 U/L Normal 7-38 [facility] Comment on above: Order Comment: Speci men Type: BLOOD SPECIMENOrdering Facility: [facility] Address: [address] [place] [address] Performed By: #### 2 4323-8 ####[facility] HOSPITALWNCLIA [id number] [place] [address] [place] Anion gap [Moles/Vol] 11 mmol/L Normal 8-15 [facility] Comment on above: Order Comment: Speci men Type: BLOOD SPECIMENOrdering Facility: [facility] Address: [address] [place] [address] Performed By: #### 2 4323-8 ####[facility]GENCYNCLIA [id number] [place] [address] [place] AST [Catalytic activity/Vol] 34 U/L Normal 13-35 [facility] Comment on above: Order Comment: Speci men Type: BLOOD SPECIMENOrdering Facility: [facility] Address: [address] [place] [address] Performed By: #### 2 4323-8 ####[facility]ENCYNCLIA [id number] [place] [address] [place] Bilirubin [Mass/Vol] 0.8 mg/dL Normal 0.2-1.3 [facility] Comment on above: Order Comment: Speci men Type: BLOOD SPECIMENOrdering Facility: [facility] Address: [address] [place] [address] Performed By: #### 2 4323-8 ####[facility]ENCYNCLIA [id number] [place] [address] [place] Calcium [Mass/Vol] 10.6 mg/dL High 8.5-10.2 [facility] Comment on above: Order Comment: Speci men Type: BLOOD SPECIMENOrdering Facility: [facility] Address: [address] [place] [address] Performed By: #### 2 4323-8 ####[facility]ENCYNCLIA [id number] [place] [address] [place] Chloride [Moles/Vol] 107 mmol/L Normal 98-107 [facility] Comment on above: Order Comment: Speci men Type: BLOOD SPECIMENOrdering Facility: [facility] Address: [address] [place] [address] Performed By: #### 2 4323-8 ####[facility] EVAN ROBWNCLIA [id number] [place] [address] [place] CO2 [Moles/Vol] 19 mmol/L Low 22-30 [facility] Comment on above: Order Comment: Speci men Type: BLOOD SPECIMENOrdering Facility: [facility] Address: [address] [place] [address] Performed By: #### 2 4323-8 ####[facility]ENCYNCLIA [id number] [address] [place] Creatinine [Mass/Vol] 1.21 mg/dL High 0.58-0.96 [facility] Comment on above: Order Comment: Speci men Type: BLOOD SPECIMENOrdering Facility: [facility] Address: [address] [place] [address] Performed By: #### 2 4323-8 ####[facility]GENCYNCLIA [id number] [address] Creatinine and Glomerular filtration rate.predicted panel (S/P/Bld) 49 mL/min/1.73m??? Low >=60 [facility] Comment on above: Order Comment: Speci men Type: BLOOD SPECIMENOrdering Facility: [facility] Address: [address] [place] [address] Result Comment: Ylndsey mated Glomerular Filtration Rate (eGFR) is calculated using the 2020 CKD-EPI creatinine equation. This equation utilizes serum creatinine, sex, and age as parameters. The creatinine assay has traceable calibration to isotope dilution-mass spectrometry. Refer to KDIGO guidelines for clinical interpretation. In patients with unstable renal function, e.g. those with acute kidney injury, the eGFR may not accurately reflect actual GFR. Performed By: #### 2 4323-8 ####[facility]ITALTOWNCLIA [id number] [place] [address] [place] Glucose [Mass/Vol] 137 mg/dL High 74-99 [facility] Comment on above: Order Comment: Speci men Type: BLOOD SPECIMENOrdering Facility: [facility] Address: [address] [place] [address] Result Comment: The [place] Diabetes Association (ADA) provides guidance for cutoff values for fasting glucose and random glucose. The ADA defines fasting as no caloric intake for at least 8 hours. Fasting plasma glucose results between 100 to 125 mg/dL indicate increased risk for diabetes (prediabetes). Fasting plasma glucose results greater than or equal to 126 mg/dL meet the criteria for diagnosis of diabetes. In the absence of unequivocal hyperglycemia, results should be confirmed by repeat testing. In a patient with classic symptoms of hyperglycemia or hyperglycemic crisis, random plasma glucose results greater than or equal to 200 mg/dL meet the criteria for diagnosis of diabetes. Reference: Standards of Medical Care in Diabetes 2016, [place] Diabetes Association. Diabetes Care. 2016.39(Suppl 1). Performed By: #### 2 4323-8 ####[facility]PITALWNCLIA [id number] [place] [address] [place] Potassium [Moles/Vol] 4.8 mmol/L Normal 3.7-5.1 [facility] Comment on above: Order Comment: Speci men Type: BLOOD SPECIMENOrdering Facility: [facility] Address: [address] [place] [address] Performed By: #### 2 4323-8 ####[facility] MILLTOWNCLIA [id number] [place] [address] [place] Protein [Mass/Vol] 7.0 g/dL Normal 6.3-8.0 [facility] Comment on above: Order Comment: Speci men Type: BLOOD SPECIMENOrdering Facility: [facility] Address: [address] [place] [address] Performed By: #### 2 4323-8 ####[facility] MILLWNCLIA [id number] [place] [address] [place] Sodium [Moles/Vol] 137 mmol/L Normal 136-144 [facility] Comment on above: Order Comment: Speci men Type: BLOOD SPECIMENOrdering Facility: [facility] Address: [address] [place] [address] Performed By: #### 2 4323-8 ####[facility] [id number] [place] [address] [place] Urea nitrogen [Mass/Vol] 26 mg/dL High 7-21 [facility] Comment on above: Order Comment: Speci men Type: BLOOD SPECIMENOrdering Facility: [facility] Address: [address] [place] [address] Performed By: #### 2 4323-8 ####[facility] PLACIDNayeli [id number] [place] [address] [place] LIPID PANEL, NONFASTINGon Cholesterol [Mass/Vol] 151 mg/dL Normal <200 [facility] Comment on above: Order Comment: Speci men Type: BLOOD SPECIMENOrdering Facility: [facility] Address: [address] [place] [address] Result Comment: <200 mg/dL, Desirable 200-239 mg/dL, Borderline high >239 mg/dL, High Performed By: #### L IPNF, 6-3 ####[facility] LABCLIA [id number] [facility] [id number], [place] [address] [place] HDL CHOLESTEROL, NF 67 mg/dL Normal >39 [facility] Comment on above: Order Comment: Speci men Type: BLOOD SPECIMENOrdering Facility: [facility] Address: [address] [place] [address] Result Comment: 40-5 9 mg/dL, Acceptable >59 mg/dL, High: Negative risk factor for coronary heart disease <40 mg/dL, Low: Positive risk factor for coronary heart disease Performed By: #### L IPNF, 6-3 ####[facility] LABCLIA [id number] [place] [address] [place] LDL CHOLESTEROL, NF 68 mg/dL Normal <100 [facility] Comment on above: Order Comment: Speci men Type: BLOOD SPECIMENOrdering Facility: [facility] Address: [address] [place] [address] Result Comment: <100 mg/dL, Optimal 100-129 mg/dL, Near optimal/above optimal 130-159 mg/dL, Borderline high 160-189 mg/dL, High >189 mg/dL, Very high Secondary prevention optimal LDL Cholesterol levels are recommended to be < 70 mg/dL Performed By: #### L MONTY, 3015-3 ####[facility] LABCLIA [id number] [place] [address] [place] LDL/HDL RATIO, NF 1.01 mg/dL Normal <2.54 [facility] Comment on above: Order Comment: Speci men Type: BLOOD SPECIMENOrdering Facility: [facility] Address: [address] [place] [address] Result Comment: Refe rence: 1. National Cholesterol Education Program ATP III Guideline At-A-Glance Quick Desk Reference: National Heart, Lung, and Blood [place]. National Institutes of Health. 2001: NIH Publication No. 01-3305. 2. An International Atherosclerosis Society position paper: global recommendations for the management of dyslipidemia: executive summary, Atherosclerosis. 2014: 232(2):410-413. Performed By: #### L MONTY, 3015-3 ####[facility] LABCLIA [id number] [place] [address] [place] NON HDL CHOL, NF 84 mg/dL Normal <130 [facility] Comment on above: Order Comment: Ramiroi men Type: BLOOD SPECIMENOrdering Facility: [facility] Address: [address] [place] [address] Result Comment: <130 mg/dL, Optimal 130-159 mg/dL, Near optimal/above optimal 160-189 mg/dL, Borderline high 190-219 mg/dL, High >219 mg/dL, Very high Secondary prevention optimal non HDL Cholesterol levels are recommended to be <100 mg/dL Performed By: #### L IPNF, 3015-3 ####[facility] LABCLIA [id number] [place] [address] [place] T CHOL/HDL RATIO NF 2.25 mg/dL Normal <5.10 [facility] Comment on above: Order Comment: Speci men Type: BLOOD SPECIMENOrdering Facility: [facility] Address: [address] [place] [address] Performed By: #### L IPRAÚL, 3015-3 ####[facility] LABIA [id number] [place] [address] [place] TRIGLYCERIDES, NF 82 mg/dL Normal <150 [facility] Comment on above: Order Comment: Speci men Type: BLOOD SPECIMENOrdering Facility: [facility] Address: [address] [place] [address] Result Comment: <150 mg/dL, Normal 150-199 mg/dL, Borderline high 200-499 mg/dL, High >499 mg/dL, Very high Performed By: #### L MONTY, 3015-3 ####[facility] LABCLIA [id number] [place] [address] [place] VLDL CHOLESTEROL, NF 16 mg/dL Normal <30 [facility] Comment on above: Order Comment: Speci men Type: BLOOD SPECIMENOrdering Facility: [facility] Address: [address] [place] [address] Performed By: #### L IPNF, 3015-3 ####[facility] LABCLIA [id number] [place] [address] [place] TSH SerPl-aCncon 09-30-2024 TSH Qn 4.220 m[IU]/L High 0.270-4.200 [facility] Comment on above: Order Comment: Speci men Type: BLOOD SPECIMENOrdering Facility: [facility] Address: [address] [place] [address] Performed By: #### L IP, 3016-3 ####[facility] LABCLIA [id number] [facility] [place], [place] [address] [place] HBA1C (OUTSIDE)on 05-05-2024 HbA1c (Bld) [Mass fraction] 6.4 % Abnormal 3.8 - 5.6 % [facility] Interpretation and review of laboratory results Abnormal [facility] Basophil percentageOrdered B y: Stanley Garcia on 02-19-2024 Basophil percentage 2.7 mg/dL 2.5-4.9 [facility] Chloride [Moles/Vol] 108 mmol/L 98-107 [facility] Glucose [Mass/Vol] 114 mg/dL 74-[address] [facility] Comment on above: Fasting Glucose resu lt from 100 to 125 mg/dL suggests IMPAIRED HOMEOSTASIS per A.D.A. criteria. Potassium [Moles/Vol] 4.4 mmol/L 3.5-5.1 [facility] Sodium [Moles/Vol] 139 mmol/L 136-[address] [facility] Laboratory - Chemistry and C hemistry - challengeOrdered By: Stanley Garcia on 02-19-2024 CO2 [Moles/Vol] 25.0 mmol/L 21.0-32.0 [facility] Magnesium [Mass/Vol] 1.7 mg/dL 1.6-2.6 [facility] Urea nitrogen/Creatinine [Mass ratio] 11.2 mg/mg 10-20 [facility] No Panel InformationOrdered By: Stanley Garcia on 02-19-2024 Estimated GFR (MDRD) Amer 51 mL/min >60 [facility] Comment on above: GFR Calc Estimated GFR (MDRD) Non-Af Amer 42 mL/min >60 [facility] Comment on above: Non- GFR Calc Serum or plasma calcium tabatha urement (mass/volume)Ordered By: Stanley Garcia on 02-19-2024 Calcium [Mass/Vol] 9.5 mg/dL 8.5-10.[address] [facility] Serum or plasma creatinine m easurement (mass/volume)Ordered By: Stanley Garcia on 02-19-2024 Creatinine [Mass/Vol] 1.34 mg/dL 0.55-1.02 [facility] Comment on above: The validity of the calculated GFR & GFRAA in patients over 70 years has not been determined. Clinical correlation is essential. Serum or plasma urea nitroge n measurement (mass/volume)Ordered By: Stanley Garcia on 02-19-2024 Urea nitrogen [Mass/Vol] 15 mg/dL 7-18 [facility] Thin prep Papanicolaou smear with manual screeningOrdered By: Stanley Garcia on 02-19-2024 Thin prep Papanicolaou smear with manual screening 6 5-15 [facility] Absolute lymphocyte countOrd ered By: Stanley Garcia on 02-03-2024 Lymphocytes Auto (Unsp spec) [#/Vol] 0.39 10*3/uL 0.83-4.51 [facility] Automated lymphocyte count a s percentage of total leukocytesOrdered By: Stanley Garcia on 02-03-2024 Lymphocytes/100 WBC Auto (Unsp spec) 9.8 % 19-41 [facility] Basophil percentageOrdered B y: Stanley Garcia on 02-03-2024 Ammonia (P) [Moles/Vol] 18.0 umol/L 11-32 [facility] Basophils/100 WBC (Bld) 0.5 % 0-1 [facility] Bilirubin [Mass/Vol] 1.30 mg/dL 0.20-1.00 [facility] Comment on above: For patients on eltr ombopag therapy, use of Dimension [place] TBIL is not recommended. Chloride [Moles/Vol] 105 mmol/L 98-107 [facility] Eosinophils/100 WBC (Bld) 3.5 % 0-5 [facility] Glucose [Mass/Vol] 88 mg/dL 74-[address] [facility] Hemoglobin (Bld) [Mass/Vol] 10.3 g/dL 12.0-15.0 [facility] Monocytes/100 WBC (Bld) 8.8 % 0-10 [facility] Neutrophils (Bld) [#/Vol] 3.0 10*3/uL 2.0-7.7 [facility] Neutrophils/100 WBC (Bld) 76.6 % 47-70 [facility] Potassium [Moles/Vol] 4.2 mmol/L 3.5-5.1 [facility] Protein [Mass/Vol] 7.1 g/dL 6.4-8.[address] [facility] Sodium [Moles/Vol] 138 mmol/L 136-[address] [facility] WBC (Bld) [#/Vol] 4.0 10*3/uL 4.4-11.[address] [facility] Determination of erythrocyte mean corpuscular volume (MCV)Ordered By: Stanley Garcia on 02-03-2024 MCV (RBC) [Entitic vol] 101.3 fL 81-99 [facility] Erythrocyte distribution wid th ratioOrdered By: Stanley Garcia on 02-03-2024 Erythrocyte distribution width (RBC) [Ratio] 13.0 % 11.6-14.6 [facility] Erythrocyte distribution wid th standard deviationOrdered By: Stanley Garcia on 02-03-2024 Erythrocyte distribution width (RBC) [Entitic vol] 48.8 fL 35.1-43.9 [facility] Hematocrit Auto (Bld) [Volum e fraction]Ordered By: Stanley Garcia on 02-03-2024 Hematocrit (Bld) [Volume fraction] 30.5 % 37-47 [facility] Immature granulocytes/100 WB C Auto (Bld)Ordered By: Stanley Garcia on 02-03-2024 Immature granulocytes/100 WBC (Bld) 0.800 % 0.0-0.9 [facility] Comment on above: IG% - Immature Granu locytes (promyelocytes, myelocytes and metamyelocytes) > 1% indicates that a LEFT SHIFT is Present. Laboratory - Chemistry and C hemistry - challengeOrdered By: Stanley Garcia on 02-03-2024 Albumin/Globulin [Mass ratio] 0.8 {ratio} 0.9-2.4 [facility] ALP [Catalytic activity/Vol] 83 U/L 45-117 [facility] ALT [Catalytic activity/Vol] 40 U/L 13-56 [facility] CO2 [Moles/Vol] 25.0 mmol/L 21.0-32.0 [facility] Globulin (S) [Mass/Vol] 3.9 g/dL 2.2-4.2 [facility] Urea nitrogen/Creatinine [Mass ratio] 12.4 mg/mg 10-20 [facility] Laboratory - CoagulationOrde red By: Stanley Garcia on 02-03-2024 INR Coag (Bld) [Relative time] 1.2 {INR} [facility] PT Coag (PPP) [Time] 15.0 s 11.7-14.9 [facility] Laboratory - Hematology and Cell countsOrdered By: Stanely Garcia on 02-03-2024 MCH (RBC) [Entitic mass] 34.2 pg 27.0-32.0 [facility] MCHC (RBC) [Mass/Vol] 33.8 g/dL 32-36 [facility] Nucleated RBC/100 WBC (Bld) [Ratio] 0 % 0-5 [facility] Platelet mean volume (Bld) [Entitic vol] 10.4 fL 6.2-12.0 [facility] Platelets (Bld) [#/Vol] 55 10*3/uL 150-450 [facility] No Panel InformationOrdered By: Stanley Garcia on 02-03-2024 C-Reactive Protein Extended Range 8.42 mg/L 0.0-3.0 [facility] Comment on above: C-Reactive Protein ( CRP) provides useful information for thediagnosis, therapy and monitoring of inflammatory processesand associated diseases. For the evaluation of Relative Riskfor Cardiovascular Disease, a High Sensitivity CRP (HSCRP)should be ordered. Estimated GFR (MDRD) Amer 49 mL/min >60 [facility] Comment on above: GFR Calc Estimated GFR (MDRD) Non-Af Amer 41 mL/min >60 [facility] Comment on above: Non- GFR Calc Tumor Marker Alpha Fetoprotein 10.5 ng/mL 0.0-9.2 [facility] Comment on above: [employer] El ectrochemiluminescence Immunoassay(ECLIA)Values obtained with different assay methods or kits cannotbe used interchangeably. Results cannot be interpreted asabsolute evidence of the presence or absence of malignantdisease.This test is not interpretable in females.Performed at: [facility] [employer] [id number] Director: Onur Camargo PhD, Phone: [phone] Vitamin D 25-Hydroxy 51.9 ng/mL [facility] Comment on above: Vitamin D 25(OH) Sta tus Range Deficiency <20 ng/mL (50nmol/L) Insufficiency 20 - 30 ng/mL (50 - 75 nmol/L) Sufficiency 30 - 100 ng/mL (75 - 250 nmol/L) Toxicity >100 ng/mL (>250 nmol/L) RBC Auto (Bld) [#/Vol]Ordere d By: Stanley Garcia on 02-03-2024 RBC (Bld) [#/Vol] 3.01 10*6/uL 4.2-5.4 [facility] Serum or plasma calcium tabatha urement (mass/volume)Ordered By: Stanley Garcia on 02-03-2024 Calcium [Mass/Vol] 9.4 mg/dL 8.5-10.[address] [facility] Serum or plasma creatinine m easurement (mass/volume)Ordered By: Stanley Garcia on 02-03-2024 Creatinine [Mass/Vol] 1.37 mg/dL 0.55-1.02 [facility] Comment on above: The validity of the calculated GFR & GFRAA in patients over 70 years has not been determined. Clinical correlation is essential. Serum or plasma urea nitroge n measurement (mass/volume)Ordered By: Stanley Garcia on 02-03-2024 Urea nitrogen [Mass/Vol] 17 mg/dL 7-18 [facility] Thin prep Papanicolaou smear with manual screeningOrdered By: Stanley Garcia on 02-03-2024 Thin prep Papanicolaou smear with manual screening 3.2 g/dL 3.2-5.0 [facility] Thin prep Papanicolaou smear with manual screening 48 U/L 15-37 [facility] Thin prep Papanicolaou smear with manual screening 8 5-15 [facility] No Panel InformationOrdered By: Minh Friend on 09-14-2023 Hepatitis A IgM Antibody Negative Negative [facility] Hepatitis B Core IgM Antibody Negative Negative [facility] Hepatitis C Antibody (EIA) Non-Reactive Non Reactive [facility] Hepatitis C Antibody Comment Comment . [facility] Comment on above: Not infected with HC V unless early or acute infection issuspected (which may be delayed in an immunocompromisedindividual), or other evidence exists to indicate HCVinfection.Performed at: - [facility] [id number] Director: Onur Camargo PhD, Phone: [phone] Serum or plasma hepatitis B virus surface antigen detection by immunoassayOrdered By: Minh Martinez on 09-14-2023 HBV surface Ag IA Ql Negative Negative [facility] Absolute lymphocyte countOrd ered By: Minh Martinez on 05-24-2023 Lymphocytes Auto (Unsp spec) [#/Vol] 0.62 10*3/uL 0.83-4.51 [facility] Basophil percentageOrdered B y: Minh Martinez on 05-24-2023 Ammonia (P) [Moles/Vol] 50.0 umol/L 11-32 [facility] Basophils/100 WBC (Bld) 0.3 % 0-1 [facility] Bilirubin [Mass/Vol] 0.70 mg/dL 0.20-1.00 [facility] Comment on above: For patients on eltr ombopag therapy, use of Dimension [place]riot TBIL is not recommended. Chloride [Moles/Vol] 104 mmol/L 98-107 [facility] Eosinophils/100 WBC (Bld) 3.1 % 0-5 [facility] Glucose [Mass/Vol] 99 mg/dL 74-[address] [facility] LDH [Catalytic activity/Vol] 210 U/L 84-246 [facility] Neutrophils (Bld) [#/Vol] 1.9 10*3/uL 2.0-7.7 [facility] Neutrophils/100 WBC (Bld) 66.3 % 47-70 [facility] Potassium [Moles/Vol] 4.2 mmol/L 3.5-5.1 [facility] Protein [Mass/Vol] 7.2 g/dL 6.4-8.[address] [facility] Sodium [Moles/Vol] 135 mmol/L 136-[address] [facility] WBC (Bld) [#/Vol] 2.9 10*3/uL 4.4-11.[address] [facility] Blood erythrocytes count (nu mber/volume)Ordered By: Minh Martinez on 05-24-2023 RBC (Bld) [#/Vol] 2.81 10*6/uL 4.2-5.4 [facility] Blood hemoglobin measurement (mass/volume)Ordered By: Minh Martinez on 05-24-2023 Hemoglobin (Bld) [Mass/Vol] 9.5 g/dL 12.0-15.0 [facility] Blood lymphocytes/100 leukoc ytesOrdered By: Minh Martinez on 05-24-2023 Lymphocytes/100 WBC (Bld) 21.6 % 19-41 [facility] Blood monocytes/100 leukocyt esOrdered By: Minh Martinez on 05-24-2023 Monocytes/100 WBC (Bld) 8.4 % 0-10 [facility] Blood platelet mean volumeOr dered By: Minh Martinez on 05-24-2023 Platelet mean volume (Bld) [Entitic vol] 10.8 fL 6.2-12.0 [facility] Determination of erythrocyte mean corpuscular volume (MCV)Ordered By: Minh Martinez on 05-24-2023 MCV (RBC) [Entitic vol] 101.8 fL 81-99 [facility] Erythrocyte sedimentation ra teOrdered By: Minh Martinez on 05-24-2023 ESR (Bld) [Velocity] 22 mm/h 0-30 [facility] Hematocrit Auto (Bld) [Volum e fraction]Ordered By: Minh Martinez on 05-24-2023 Hematocrit (Bld) [Volume fraction] 28.6 % 37-47 [facility] INR in Blood by Coagulation assayOrdered By: Minh Martinez on 05-24-2023 INR Coag (Bld) [Relative time] 1.1 {INR} [facility] Laboratory - Chemistry and C hemistry - challengeOrdered By: Minh Martinez on 05-24-2023 ALP [Catalytic activity/Vol] 104 U/L 45-117 [facility] ALT [Catalytic activity/Vol] 34 U/L 13-56 [facility] CO2 [Moles/Vol] 24.0 mmol/L 21.0-32.0 [facility] Globulin (S) [Mass/Vol] 3.9 g/dL 2.2-4.2 [facility] Urea nitrogen/Creatinine [Mass ratio] 14.6 mg/mg 10-20 [facility] Laboratory - CoagulationOrde red By: Minh Martinez on 05-24-2023 PT Coag (PPP) [Time] 13.9 s 11.7-14.9 [facility] Laboratory - Hematology and Cell countsOrdered By: Minh Martinez on 05-24-2023 Erythrocyte distribution width (RBC) [Entitic vol] 47.7 fL 35.1-43.9 [facility] Erythrocyte distribution width (RBC) [Ratio] 12.6 % 11.6-14.6 [facility] Immature granulocytes/100 WBC (Bld) 0.300 % 0.0-0.9 [facility] Comment on above: IG% - Immature Granu locytes (promyelocytes, myelocytes and metamyelocytes) > 1% indicates that a LEFT SHIFT is Present. MCH (RBC) [Entitic mass] 33.8 pg 27.0-32.0 [facility] Nucleated RBC/100 WBC (Bld) [Ratio] 0 % 0-5 [facility] MCHC Auto (RBC) [Mass/Vol]Or dered By: Minh Martinez on 05-24-2023 MCHC (RBC) [Mass/Vol] 33.2 g/dL 32-36 [facility] No Panel InformationOrdered By: Minh Martinez on 05-24-2023 Estimated GFR (MDRD) Amer 52 mL/min >60 [facility] Comment on above: GFR Calc Estimated GFR (MDRD) Non-Af Amer 43 mL/min >60 [facility] Comment on above: Non- GFR Calc Platelets bldOrdered By: Jimi Martinez on 05-24-2023 Platelets (Bld) [#/Vol] 51 10*3/uL 150-450 [facility] Serum or plasma C reactive p rotein measurement (mass/volume)Ordered By: Minh Martinez on 05-24-2023 CRP [Mass/Vol] 3.99 mg/L 0.0-3.0 [facility] Comment on above: C-Reactive Protein ( CRP) provides useful information for thediagnosis, therapy and monitoring of inflammatory processesand associated diseases. For the evaluation of Relative Riskfor Cardiovascular Disease, a High Sensitivity CRP (HSCRP)should be ordered. Serum or plasma albumin tabatha urement (mass/volume)Ordered By: Minh Martinez on 05-24-2023 Albumin [Mass/Vol] 3.3 g/dL 3.2-5.[address] [facility] Serum or plasma albumin/glob ulin mass ratioOrdered By: Minh Martinez on 05-24-2023 Albumin/Globulin [Mass ratio] 0.8 {ratio} 0.9-2.4 [facility] Serum or plasma [id number] protein tumor marker measurement (units/volume)Ordered By: Minh Martinez on 05-24-2023 AFP.tumor marker Qn 7.4 ng/mL 0.0-9.2 [facility] Comment on above: [employer] El ectrochemiluminescence Immunoassay(ECLIA)Values obtained with different assay methods or kits cannotbe used interchangeably. Results cannot be interpreted asabsolute evidence of the presence or absence of malignantdisease.This test is not interpretable in females. Serum or plasma calcium tabatha urement (mass/volume)Ordered By: Minh Martinez on 05-24-2023 Calcium [Mass/Vol] 9.9 mg/dL 8.5-10.[address] [facility] Serum or plasma creatinine m easurement (mass/volume)Ordered By: Minh Martinez on 05-24-2023 Creatinine [Mass/Vol] 1.30 mg/dL 0.55-1.02 [facility] Comment on above: The validity of the calculated GFR & GFRAA in patients over 70 years has not been determined. Clinical correlation is essential. Serum or plasma urea nitroge n measurement (mass/volume)Ordered By: Minh Martinez on 05-24-2023 Urea nitrogen [Mass/Vol] 19 mg/dL 7-18 [facility] Thin prep Papanicolaou smear with manual screeningOrdered By: Minh Martinez on 05-24-2023 Thin prep Papanicolaou smear with manual screening 36 U/L 15-37 [facility] Thin prep Papanicolaou smear with manual screening 7 5-15 [facility] Absolute lymphocyte countOrd ered By: Liz Braswell on 09-18-2022 Lymphocytes Auto (Unsp spec) [#/Vol] 0.68 10*3/uL 0.83-4.51 [facility] Automated blood hematocrit ( percentage)Ordered By: Liz Braswell on 09-18-2022 Hematocrit (Bld) [Volume fraction] 30.4 % 37-47 [facility] Basophil percentageOrdered B y: Liz Braswell on 09-18-2022 Basophils/100 WBC (Bld) 0.8 % 0-1 [facility] Bilirubin [Mass/Vol] 0.70 mg/dL 0.20-1.00 [facility] Comment on above: For patients on eltr ombopag therapy, use of Dimension [place] TBIL is not recommended. Chloride [Moles/Vol] 104 mmol/L 98-107 [facility] Eosinophils/100 WBC (Bld) 11.6 % 0-5 [facility] Glucose [Mass/Vol] 118 mg/dL 74-[address] [facility] Comment on above: Fasting Glucose resu lt from 100 to 125 mg/dL suggests IMPAIRED HOMEOSTASIS per A.D.A. criteria. Neutrophils (Bld) [#/Vol] 2.3 10*3/uL 2.0-7.7 [facility] Neutrophils/100 WBC (Bld) 62.0 % 47-70 [facility] Potassium [Moles/Vol] 3.9 mmol/L 3.5-5.1 [facility] Protein [Mass/Vol] 7.6 g/dL 6.4-8.[address] [facility] Sodium [Moles/Vol] 137 mmol/L 136-[address] [facility] WBC (Bld) [#/Vol] 3.8 10*3/uL 4.4-11.[address] [facility] Blood erythrocytes count (nu mber/volume)Ordered By: Liz Braswell on 09-18-2022 RBC (Bld) [#/Vol] 3.14 10*6/uL 4.2-5.4 [facility] Blood hemoglobin measurement (mass/volume)Ordered By: Liz Braswell on 09-18-2022 Hemoglobin (Bld) [Mass/Vol] 10.0 g/dL 12.0-15.0 [facility] Blood lymphocytes/100 leukoc ytesOrdered By: Liz Braswell on 09-18-2022 Lymphocytes/100 WBC (Bld) 18.0 % 19-41 [facility] Blood monocytes/100 leukocyt esOrdered By: Liz Braswell on 09-18-2022 Monocytes/100 WBC (Bld) 7.1 % 0-10 [facility] Blood platelet mean volumeOr dered By: Liz Braswell on 09-18-2022 Platelet mean volume (Bld) [Entitic vol] 10.2 fL 6.2-12.0 [facility] CBC W/DIFF/PLT (EXTERNAL LAB DAIJA)on 09-18-2022 BASO ABSOLUTE [facility] Basophil % [facility] EOS ABSOLUTE [facility] Eosinophil % [facility] Hemoglobin (Bld) [Mass/Vol] 10 g/dL Abnormal 12.6 - 17.7 g/dL [facility] Immature Gran % [facility] IMMATURE GRANS ABSOLUTE [facility] Lymphocyte % [facility] LYMPHS ABSOLUTE [facility] MCH [facility] MCHC [facility] MCV [facility] Monocyte % [facility] MONOCYTES ABSOLUTE [facility] Neutrophil % [facility] NE[facility]OPHILS [facility] RBC [facility] RDW [facility] CMP (EXTERNAL)on 09-18-2022 Albumin [Mass/Vol] 3.7 g/dL 3.2 - 4.6 gm/dL [facility] Alk Phos Total 79 U/L 45 - 117 U/L [facility] AST [Catalytic activity/Vol] 35 U/L 8 - 37 U/L [facility] Bili Total 0.7 mg/dL 0.2 - 1 mg/dL [facility] CO2 [Moles/Vol] 26 mmol/L 21 - 32 MEQ/L [facility] GFR [facility] GFR AFR AMER [facility] Determination of erythrocyte mean corpuscular volume (MCV)Ordered By: Liz Braswell on 09-18-2022 MCV (RBC) [Entitic vol] 96.8 fL 81-99 [facility] INR in Blood by Coagulation assayOrdered By: Liz Braswell on 09-18-2022 INR Coag (Bld) [Relative time] 1.2 {INR} [facility] Laboratory - Chemistry and C hemistry - challengeOrdered By: Liz Braswell on 09-18-2022 ALP [Catalytic activity/Vol] 79 U/L 45-117 [facility] ALT [Catalytic activity/Vol] 31 U/L 13-56 [facility] CO2 [Moles/Vol] 26.0 mmol/L 21.0-32.0 [facility] Globulin (S) [Mass/Vol] 4.3 g/dL 2.2-4.2 [facility] Urea nitrogen/Creatinine [Mass ratio] 14.1 mg/mg 10-20 [facility] Laboratory - CoagulationOrde red By: Liz Braswell on 09-18-2022 PT Coag (PPP) [Time] 14.5 s 11.7-14.9 [facility] Laboratory - Hematology and Cell countsOrdered By: Liz Braswell on 09-18-2022 Erythrocyte distribution width (RBC) [Entitic vol] 47.8 fL 35.1-43.9 [facility] Erythrocyte distribution width (RBC) [Ratio] 13.4 % 11.6-14.6 [facility] Immature granulocytes/100 WBC (Bld) 0.500 % 0.0-0.9 [facility] Comment on above: IG% - Immature Granu locytes (promyelocytes, myelocytes and metamyelocytes) > 1% indicates that a LEFT SHIFT is Present. MCH (RBC) [Entitic mass] 31.8 pg 27.0-32.0 [facility] Nucleated RBC/100 WBC (Bld) [Ratio] 0 % 0-5 [facility] MCHC Auto (RBC) [Mass/Vol]Or dered By: Liz Braswell on 09-18-2022 MCHC (RBC) [Mass/Vol] 32.9 g/dL 32-36 [facility] No Panel InformationOrdered By: Liz Braswell on 09-18-2022 Estimated GFR (MDRD) Amer 54 mL/min >60 [facility] Comment on above: GFR Calc Estimated GFR (MDRD) Non-Af Amer 44 mL/min >60 [facility] Comment on above: Non- GFR Calc Platelets bldOrdered By: Joan Braswell on 09-18-2022 Platelets (Bld) [#/Vol] 64 10*3/uL 150-450 [facility] Serum or plasma albumin tabatha urement (mass/volume)Ordered By: Liz Braswell on 09-18-2022 Albumin [Mass/Vol] 3.3 g/dL 3.2-5.[address] [facility] Serum or plasma albumin/glob ulin mass ratioOrdered By: Liz Braswell on 09-18-2022 Albumin/Globulin [Mass ratio] 0.8 {ratio} 0.9-2.4 [facility] Serum or plasma calcium tabatha urement (mass/volume)Ordered By: Liz Braswell on 09-18-2022 Calcium [Mass/Vol] 9.6 mg/dL 8.5-10.[address] [facility] Serum or plasma creatinine m easurement (mass/volume)Ordered By: Liz Braswell on 09-18-2022 Creatinine [Mass/Vol] 1.28 mg/dL 0.55-1.02 [facility] Comment on above: The validity of the calculated GFR & GFRAA in patients over 70 years has not been determined. Clinical correlation is essential. Serum or plasma urea nitroge n measurement (mass/volume)Ordered By: Liz Braswell on 09-18-2022 Urea nitrogen [Mass/Vol] 18 mg/dL - [facility] Thin prep Papanicolaou smear with manual screeningOrdered By: Liz Braswell on 09-18-2022 Thin prep Papanicolaou smear with manual screening 35 U/L 15-37 [facility] Thin prep Papanicolaou smear with manual screening 7 5-15 [facility] Glucose Glucometer (BldC) [M ass/Vol]Ordered By: Minh Martinez on 09-10-2022 Glucose [Mass/Vol] 117 mg/dL 74-[address] [facility] Comment on above: MANAGEMENT OF PATIEN T CARE PER NURSING PROTOCOL Glucose Glucometer (BldC) [M ass/Vol]on 05-29-2022 Glucose [Mass/Vol] 95 mg/dL 74-[address] [facility] Work Phone: Comment on above: MANAGEMENT OF PATIEN T CARE PER NURSING PROTOCOL Absolute lymphocyte counton 05-14-2022 Lymphocytes Auto (Unsp spec) [#/Vol] 0.71 10*3/uL 0.83-4.51 [facility] Work Phone: Basophil percentageon 2021 Basophils/100 WBC (Bld) 0.7 % 0-1 [facility] Work Phone: Bilirubin [Mass/Vol] 0.60 mg/dL 0.20-1.00 [facility] Work Phone: Comment on above: For patients on eltr ombopag therapy, use of Dimension [place] TBIL is not recommended. Chloride [Moles/Vol] 102 mmol/L 98-107 [facility] Work Phone: Eosinophils/100 WBC (Bld) 2.7 % 0-5 [facility] Work Phone: Glucose [Mass/Vol] 93 mg/dL 74-[address] [facility] Work Phone: Neutrophils (Bld) [#/Vol] 1.9 10*3/uL 2.0-7.7 [facility] Work Phone: Neutrophils/100 WBC (Bld) 64.8 % 47-70 [facility] Work Phone: Potassium [Moles/Vol] 3.8 mmol/L 3.5-5.1 [facility] Work Phone: Protein [Mass/Vol] 7.4 g/dL 6.4-8.[address] [facility] Work Phone: Sodium [Moles/Vol] 138 mmol/L 136-[address] [facility] Work Phone: WBC (Bld) [#/Vol] 3.0 10*3/uL 4.4-11.[address] [facility] Work Phone: Blood erythrocytes count (nu mber/volume)on 05-14-2022 RBC (Bld) [#/Vol] 2.98 10*6/uL 4.2-5.4 [facility] Work Phone: Blood hemoglobin measurement (mass/volume)on 05-14-2022 Hemoglobin (Bld) [Mass/Vol] 8.8 g/dL 12.0-15.0 [facility] Work Phone: Blood lymphocytes/100 leukoc yteson 05-14-2022 Lymphocytes/100 WBC (Bld) 23.7 % 19-41 [facility] Work Phone: Blood monocytes/100 leukocyt eson 05-14-2022 Monocytes/100 WBC (Bld) 7.4 % 0-10 [facility] Work Phone: Blood platelet mean volumeon 05-14-2022 Platelet mean volume (Bld) [Entitic vol] 11.3 fL 6.2-12.0 [facility] Work Phone: Determination of erythrocyte mean corpuscular volume (MCV)on 05-14-2022 MCV (RBC) [Entitic vol] 91.9 fL 81-99 [facility] Work Phone: Direct bilirubinon Bilirubin.direct [Mass/Vol] 0.23 mg/dL 0.00-0.30 [facility] Work Phone: Hematocrit Auto (Bld) [Volum e fraction]on 05-14-2022 Hematocrit (Bld) [Volume fraction] 27.4 % 37-47 [facility] Work Phone: INR in Blood by Coagulation assayon 05-14-2022 INR Coag (Bld) [Relative time] 1.0 {INR} [facility] Work Phone: Laboratory - Chemistry and C hemistry - challengeon 05-14-2022 ALP [Catalytic activity/Vol] 93 U/L 45-117 [facility] Work Phone: ALT [Catalytic activity/Vol] 34 U/L 13-56 [facility] Work Phone: CO2 [Moles/Vol] 29.0 mmol/L 21.0-32.0 [facility] Work Phone: Globulin (S) [Mass/Vol] 4.1 g/dL 2.2-4.2 [facility] Work Phone: Urea nitrogen/Creatinine [Mass ratio] 13.5 mg/mg 10-20 [facility] Work Phone: Laboratory - Coagulationon 0 05-14-2022 PT Coag (PPP) [Time] 13.2 s 11.7-14.9 [facility] Work Phone: Laboratory - Hematology and Cell countson 05-14-2022 Erythrocyte distribution width (RBC) [Entitic vol] 51.8 fL 35.1-43.9 [facility] Work Phone: Erythrocyte distribution width (RBC) [Ratio] 15.7 % 11.6-14.6 [facility] Work Phone: Immature granulocytes/100 WBC (Bld) 0.700 % 0.0-0.9 [facility] Work Phone: Comment on above: IG% - Immature Granu locytes (promyelocytes, myelocytes and metamyelocytes) > 1% indicates that a LEFT SHIFT is Present. MCH (RBC) [Entitic mass] 29.5 pg 27.0-32.0 [facility] Work Phone: Nucleated RBC/100 WBC (Bld) [Ratio] 0 % 0-5 [facility] Work Phone: MCHC Auto (RBC) [Mass/Vol]on 05-14-2022 MCHC (RBC) [Mass/Vol] 32.1 g/dL 32-36 [facility] Work Phone: No Panel Informationon 05-14 Estimated GFR (MDRD) Amer 55 mL/min >60 [facility] Work Phone: Comment on above: GFR Calc Estimated GFR (MDRD) Non-Af Amer 45 mL/min >60 [facility] Work Phone: Comment on above: Non- GFR Calc Platelets bldon 05-14-2022 Platelets (Bld) [#/Vol] 69 10*3/uL 150-450 [facility] Work Phone: Serum or plasma albumin tabatha urement (mass/volume)on 05-14-2022 Albumin [Mass/Vol] 3.3 g/dL 3.2-5.[address] [facility] Work Phone: Serum or plasma bszyt-4-[id number] protein tumor marker measurement (units/volume)on 05-14-2022 AFP.tumor marker Qn 6.0 ng/mL 0.0-9.2 [facility] Work Phone: Comment on above: [employer] El ectrochemiluminescence Immunoassay(ECLIA)Values obtained with different assay methods or kits cannotbe used interchangeably. Results cannot be interpreted asabsolute evidence of the presence or absence of malignantdisease.This test is not interpretable in females.Performed at: [employer] [address] [id number] Director: Onur Camargo PhD, Phone: [phone] Serum or plasma calcium tabatha urement (mass/volume)on 05-14-2022 Calcium [Mass/Vol] 10.5 mg/dL 8.5-10.[address] [facility] Work Phone: Serum or plasma creatinine m easurement (mass/volume)on 05-14-2022 Creatinine [Mass/Vol] 1.26 mg/dL 0.55-1.02 [facility] Work Phone: Comment on above: The validity of the calculated GFR & GFRAA in patients over 70 years has not been determined. Clinical correlation is essential. Serum or plasma urea nitroge n measurement (mass/volume)on 05-14-2022 Urea nitrogen [Mass/Vol] 17 mg/dL 05-14 [facility] Work Phone: Thin prep Papanicolaou smear with manual screeningon 05-14-2022 Thin prep Papanicolaou smear with manual screening 36 U/L 15-37 [facility] Work Phone: Thin prep Papanicolaou smear with manual screening 7 5-15 [facility] Work Phone: UA DIP, URINE (POC)on 2021 BILIRUBIN UA (POCT) Negative Negative [facility] CLARITY UA (POCT) Clear [facility] COLOR UA (POCT) Yellow [facility] GLUCOSE UA (POCT) Negative Negative mg/dL [facility] HEMOGLOBIN/BLOOD UA (POCT) Small Abnormal Negative [facility] KETONE UA (POCT) Negative Negative mg/dL [facility] LEUKOCYTES UA (POCT) Small Abnormal Negative [facility] NITRITE UA (POCT) Negative Negative [facility] PH UA (POCT) 5.5 4.5 - 8.0 [facility] Protein Ql (U) Negative Negative mg/dL [facility] SPECIFIC GRAVITY UA (POCT) 1.015 1.005 - 1.030 [facility] UROBILINOGEN UA (POCT) 0.2 E.U./dL Normal E.U./dL [facility] Absolute lymphocyte counton 03-08-2022 Lymphocytes Auto (Unsp spec) [#/Vol] 0.73 10*3/uL 0.83-4.51 [facility] Work Phone: Automated blood hematocrit ( percentage)on 03-08-2022 Hematocrit (Bld) [Volume fraction] 26.9 % 37-47 [facility] Basophil percentageon 2021 Ammonia (P) [Moles/Vol] 30.0 umol/L 11-32 [facility] Work Phone: Basophils/100 WBC (Bld) 0.3 % 0-1 [facility] Bilirubin [Mass/Vol] 0.60 mg/dL 0.20-1.00 [facility] Work Phone: Comment on above: For patients on eltr ombopag therapy, use of [employer]ension [employer] TBIL is not recommended. Chloride [Moles/Vol] 103 mmol/L 98-107 [facility] Eosinophils/100 WBC (Bld) 2.9 % 0-5 [facility] Glucose [Mass/Vol] 122 mg/dL 74-106 [facility] Comment on above: Fasting Glucose resu lt from 100 to 125 mg/dL suggests IMPAIRED HOMEOSTASIS per A.D.A. criteria. Neutrophils (Bld) [#/Vol] 2.6 10*3/uL 2.0-7.7 [facility] Work Phone: Neutrophils/100 WBC (Bld) 68.9 % 47-70 [facility] Potassium [Moles/Vol] 3.8 mmol/L 3.5-5.1 [facility] Protein [Mass/Vol] 7.6 g/dL 6.4-8.2 [facility] Sodium [Moles/Vol] 136 mmol/L 136-145 [facility] WBC (Bld) [#/Vol] 3.8 10*3/uL 4.4-11.0 [facility] Blood erythrocytes count (nu mber/volume)on 03-08-2022 RBC (Bld) [#/Vol] 2.95 10*6/uL 4.2-5.4 [facility] Blood hemoglobin measurement (mass/volume)on 03-08-2022 Hemoglobin (Bld) [Mass/Vol] 8.8 g/dL 12.0-15.0 [facility] Blood lymphocytes/100 leukoc yteson 03-08-2022 Lymphocytes/100 WBC (Bld) 19.4 % 19-41 [facility] Blood monocytes/100 leukocyt eson 03-08-2022 Monocytes/100 WBC (Bld) 8.0 % 0-10 [facility] Work Phone: [phone] Blood platelet mean volumeon 03-08-2022 Platelet mean volume (Bld) [Entitic vol] 10.6 fL 6.2-12.0 [facility] Work Phone: CBC W/DIFF/PLT (EXTERNAL LAB DAIJA)on 03-08-2022 BASO ABSOLUTE [facility] EOS ABSOLUTE [facility] Immature Gran % [facility] IMMATURE GRANS ABSOLUTE [facility] Lymphocytes (Bld) [#/Vol] 0.73 10*3/uL 0.7 - 3.1 k/uL [facility] MCH 29.8 Pg 26.6 - 33 Pg [facility] MONOCYTES ABSOLUTE [facility] Monocytes/100 WBC (Bld) 8 % [facility] NEUTROPHILS ABSOLUTE 2.6 k/uL 1.4 - 7 .0 k/uL [facility] CMP (EXTERNAL)on 03-08-2022 Alk Phos Total 98 U/L 45 - 117 U/L [facility] AST [Catalytic activity/Vol] 29 U/L 8 - 37 U/L [facility] Bili Total 0.6 mg/dL 0.2 - 1 mg/dL [facility] CO2 [Moles/Vol] 25 mmol/L 21 - 32 MEQ/L [facility] GFR AFR AMER [facility] GFR/1.73 sq M.predicted among non-blacks MDRD (S/P/Bld) [Vol rate/Area] 36 mL/min/{1.73_m2} [facility] Determination of erythrocyte mean corpuscular volume (MCV)on 03-08-2022 MCV (RBC) [Entitic vol] 91.2 fL 81-99 [facility] Erythrocyte sedimentation ra prasanna 03-08-2022 ESR (Bld) [Velocity] 26 mm/h 0-30 [facility] Work Phone: INR in Blood by Coagulation assayon 03-08-2022 INR Coag (Bld) [Relative time] 1.1 {INR} [facility] Work Phone: Laboratory - Chemistry and C hemistry - challengeon 03-08-2022 ALP [Catalytic activity/Vol] 98 U/L 45-117 [facility] Work Phone: ALT [Catalytic activity/Vol] 31 U/L 13-56 [facility] CO2 [Moles/Vol] 25.0 mmol/L 21.0-32.0 [facility] Work Phone: [phone] Globulin (S) [Mass/Vol] 4.2 g/dL 2.2-4.2 [facility] Work Phone: Urea nitrogen/Creatinine [Mass ratio] 13.2 mg/mg 10-20 [facility] Work Phone: Laboratory - Coagulationon 0 03-08-2022 PT Coag (PPP) [Time] 13.6 s 11.7-14.9 [facility] Work Phone: Laboratory - Hematology and Cell countson 03-08-2022 Erythrocyte distribution width (RBC) [Entitic vol] 44.7 fL 35.1-43.9 [facility] Work Phone: Erythrocyte distribution width (RBC) [Ratio] 13.5 % 11.6-14.6 [facility] Immature granulocytes/100 WBC (Bld) 0.500 % 0.0-0.9 [facility] Work Phone: Comment on above: IG% - Immature Granu locytes (promyelocytes, myelocytes and metamyelocytes) > 1% indicates that a LEFT SHIFT is Present. MCH (RBC) [Entitic mass] 29.8 pg 27.0-32.0 [facility] Work Phone: Nucleated RBC/100 WBC (Bld) [Ratio] 0 % 0-5 [facility] Work Phone: MCHC [Mass/volume] by Automa patel counton 03-08-2022 MCHC (RBC) [Mass/Vol] 32.7 g/dL 32-36 [facility] No Panel Informationon 03-08 Estimated GFR (MDRD) Amer 44 mL/min >60 [facility] Work Phone: Comment on above: GFR Calc Estimated GFR (MDRD) Non-Af Amer 36 mL/min >60 [facility] Work Phone: Comment on above: Non- GFR Calc Platelets bldon 03-08-2022 Platelets (Bld) [#/Vol] 76 10*3/uL 150-450 [facility] Serum or plasma C reactive p rotein measurement (mass/volume)on 03-08-2022 CRP [Mass/Vol] 5.53 mg/L 0.0-3.0 [facility] Work Phone: Comment on above: C-Reactive Protein ( CRP) provides useful information for thediagnosis, therapy and monitoring of inflammatory processesand associated diseases. For the evaluation of Relative Riskfor Cardiovascular Disease, a High Sensitivity CRP (HSCRP)should be ordered. Serum or plasma albumin tabatha urement (mass/volume)on 03-08-2022 Albumin [Mass/Vol] 3.4 g/dL 3.2-5.0 [facility] Serum or plasma albumin/glob ulin mass ratioon 03-08-2022 Albumin/Globulin [Mass ratio] 0.8 {ratio} 0.9-2.4 [facility] Work Phone: Serum or plasma calcium tabatha urement (mass/volume)on 03-08-2022 Calcium [Mass/Vol] 9.6 mg/dL 8.5-10.1 [facility] Serum or plasma creatinine m easurement (mass/volume)on 03-08-2022 Creatinine [Mass/Vol] 1.52 mg/dL 0.55-1.02 [facility] Comment on above: The validity of the calculated GFR & GFRAA in patients over 70 years has not been determined. Clinical correlation is essential. Serum or plasma urea nitroge n measurement (mass/volume)on 03-08-2022 Urea nitrogen [Mass/Vol] 20 mg/dL 7-18 [facility] Thin prep Papanicolaou smear with manual screeningon 03-08-2022 Thin prep Papanicolaou smear with manual screening 29 U/L 15-37 [facility] Work Phone: Thin prep Papanicolaou smear with manual screening 8 5-15 [facility] Work Phone: Thin prep Papanicolaou smear with manual screening 225 U/L 84-246 [facility] Work Phone: Glucose Glucometer (BldC) [M ass/Vol]on 03-01-2022 Glucose [Mass/Vol] 145 mg/dL 74-[address] [facility] Work Phone: Comment on above: MANAGEMENT OF PATIEN T CARE PER NURSING PROTOCOL Absolute lymphocyte counton 01-24-2022 Lymphocytes Auto (Unsp spec) [#/Vol] 0.62 10*3/uL 0.83-4.51 [facility] Work Phone: Atypical perinuclear antineu trophil cytoplasmic antibodies measurementon 01-24-2022 Neutrophil cytoplasmic Ab.perinuclear.atypic al IF (S) [Titer] <1:20 titer Neg:<1:20 [facility] Work Phone: Comment on above: The atypical pANCA p attern has been observed in asignificant percentage of patients with ulcerative colitis,primary sclerosing cholangitis and autoimmune hepatitis. Basophil percentageon 2021 Basophil percentage < 0.2 AI [facility] Work Phone: Basophils/100 WBC (Bld) 0.9 % 0-1 [facility] Work Phone: Bilirubin [Mass/Vol] 0.50 mg/dL 0.20-1.00 [facility] Work Phone: [phone] Comment on above: For patients on eltr ombopag therapy, use of Dimension [place] TBIL is not recommended. Chloride [Moles/Vol] 103 mmol/L 98-107 [facility] Work Phone: Eosinophils/100 WBC (Bld) 3.0 % 0-5 [facility] Work Phone: Glucose [Mass/Vol] 129 mg/dL 74-[address] [facility] Work Phone: [phone] Comment on above: Fasting Glucose resu lt greater than or equal to 126 mg/dL suggests DIABETES MELLITUS per A.D.A. criteria. Neutrophils (Bld) [#/Vol] 2.3 10*3/uL 2.0-7.7 [facility] Work Phone: Neutrophils/100 WBC (Bld) 67.8 % 47-70 [facility] Work Phone: Potassium [Moles/Vol] 4.0 mmol/L 3.5-5.1 [facility] Work Phone: Protein [Mass/Vol] 7.7 g/dL 6.4-8.[address] [facility] Work Phone: Sodium [Moles/Vol] 135 mmol/L 136-[address] [facility] Work Phone: WBC (Bld) [#/Vol] 3.4 10*3/uL 4.4-11.[address] [facility] Work Phone: Blood erythrocytes count (nu mber/volume)on 01-24-2022 RBC (Bld) [#/Vol] 2.90 10*6/uL 4.2-5.4 [facility] Work Phone: [phone] Blood hemoglobin measurement (mass/volume)on 01-24-2022 Hemoglobin (Bld) [Mass/Vol] 8.9 g/dL 12.0-15.0 [facility] Work Phone: Blood lymphocytes/100 leukoc yteson 01-24-2022 Lymphocytes/100 WBC (Bld) 18.5 % 19-41 [facility] Work Phone: Blood monocytes/100 leukocyt eson 01-24-2022 Monocytes/100 WBC (Bld) 9.5 % 0-10 [facility] Work Phone: Blood platelet adequacy dete ction by light microscopyon 01-24-2022 Platelets LM Ql (Bld) MOD DEC ADEQ [facility] Work Phone: Blood platelet mean volumeon 01-24-2022 Platelet mean volume (Bld) [Entitic vol] 11.3 fL 6.2-12.0 [facility] Work Phone: [phone] Determination of erythrocyte mean corpuscular volume (MCV)on 01-24-2022 MCV (RBC) [Entitic vol] 91.0 fL 81-99 [facility] Work Phone: [phone] Erythrocyte sedimentation ra prasanna 01-24-2022 ESR (Bld) [Velocity] 26 mm/h 0-30 [facility] Work Phone: [phone] HIV 1 and HIV-2 antibody ass ay with HIV-1 p24 antigen detectionon 01-24-2022 HIV 1+2 Ab+HIV1 p24 Ag IA Ql Non-Reactive Nonreactive [facility] Work Phone: Hematocrit Auto (Bld) [Volum e fraction]on 01-24-2022 Hematocrit (Bld) [Volume fraction] 26.4 % 37-47 [facility] Work Phone: [phone] INR in Blood by Coagulation assayon 01-24-2022 INR Coag (Bld) [Relative time] 1.0 {INR} [facility] Work Phone: [phone] Laboratory - Chemistry and C hemistry - challengeon 01-24-2022 ALP [Catalytic activity/Vol] 140 U/L 45-117 [facility] Work Phone: [phone] ALT [Catalytic activity/Vol] 31 U/L 13-56 [facility] Work Phone: [phone] CO2 [Moles/Vol] 26.0 mmol/L 21.0-32.0 [facility] Work Phone: [phone] Globulin (S) [Mass/Vol] 4.3 g/dL 2.2-4.2 [facility] Work Phone: [phone] Urea nitrogen/Creatinine [Mass ratio] 11.5 mg/mg 10-20 [facility] Work Phone: Laboratory - Coagulationon 0 01-24-2022 aPTT Coag (Bld) [Time] 27.2 s 24.1-36.2 [facility] Work Phone: PT Coag (PPP) [Time] 12.7 s 11.7-14.9 [facility] Work Phone: [phone] Laboratory - Hematology and Cell countson 01-24-2022 Erythrocyte distribution width (RBC) [Entitic vol] 46.3 fL 35.1-43.9 [facility] Work Phone: [phone] Erythrocyte distribution width (RBC) [Ratio] 13.8 % 11.6-14.6 [facility] Work Phone: [phone] Immature granulocytes/100 WBC (Bld) 0.300 % 0.0-0.9 [facility] Work Phone: [phone] Comment on above: IG% - Immature Granu locytes (promyelocytes, myelocytes and metamyelocytes) > 1% indicates that a LEFT SHIFT is Present. MCH (RBC) [Entitic mass] 30.7 pg 27.0-32.0 [facility] Work Phone: Nucleated RBC/100 WBC (Bld) [Ratio] 0 % 0-5 [facility] Work Phone: [phone] MCHC Auto (RBC) [Mass/Vol]on 01-24-2022 MCHC (RBC) [Mass/Vol] 33.7 g/dL 32-36 [facility] Work Phone: [phone] No Panel Informationon 01-24 Centromere B Antibody <0.2 AI [facility] Work Phone: [employer]OTO MIXER OPERATOR Antibody <0.2 AI [facility] Work Phone: Estimated GFR (MDRD) Amer 43 mL/min >60 [facility] Work Phone: Comment on above: GFR Calc Estimated GFR (MDRD) Non-Af Amer 35 mL/min >60 [facility] Work Phone: Comment on above: Non- GFR Calc Haptoglobin 96 mg/dL [facility] Work Phone: Comment on above: Performed at: [place] [id number] Director: Onur Camargo PhD, Phone: [phone] Hepatitis A IgM Antibody Negative Negative [facility] Work Phone: Hepatitis B Core IgM Antibody Negative Negative [facility] Work Phone: Hepatitis C Antibody (EIA) <0.1 s/co ratio [facility] Work Phone: Comment on above: Negative: < 0.8 Inde terminate: 0.8 - 0.9 Positive: > 0.9 The CDC recommends that a positive HCV antibody result be followed up with a HCV Nucleic Acid Amplification test (114689).Effective February 26, 2022 Hepatitis Panel (4) will be made non-orderable. [facility] offers order code [id number] Acute Hepatitis. Platelets bldon 01-24-2022 Platelets (Bld) [#/Vol] 73 10*3/uL 150-450 [facility] Work Phone: Serum DNA double strand anti body assay (units/volume)on 01-24-2022 DNA double strand Ab Qn (S) [IU]/mL [facility] Work Phone: Comment on above: Negative <5 Equivoca l 5 - 9 Positive >9 Serum Mya-1 antibody assay (u nits/volume)on 01-24-2022 Mya-1 extractable nuclear Ab Qn (S) <0.2 AI [facility] Work Phone: Serum Scl-70 extractable nuc lear antibody assay (units/volume)on 01-24-2022 SCL-70 extractable nuclear Ab Qn (S) <0.2 AI [facility] Work Phone: Serum Jaime extractable nucl ear antibody detectionon 01-24-2022 Jaime extractable nuclear Ab Ql (S) <0.2 [facility] Work Phone: Serum classic neutrophil cyt oplasmic antibody assay (units/volume)on 01-24-2022 Neutrophil cytoplasmic Ab.classic Qn (S) <1:20 titer Neg:<1:20 [facility] Work Phone: Serum or plasma C reactive p rotein measurement (mass/volume)on 01-24-2022 CRP [Mass/Vol] 7.43 mg/L 0.0-3.0 [facility] Work Phone: Comment on above: C-Reactive Protein ( CRP) provides useful information for thediagnosis, therapy and monitoring of inflammatory processesand associated diseases. For the evaluation of Relative Riskfor Cardiovascular Disease, a High Sensitivity CRP (HSCRP)should be ordered. Serum or plasma albumin tabatha urement (mass/volume)on 01-24-2022 Albumin [Mass/Vol] 3.4 g/dL 3.2-5.[address] [facility] Work Phone: Serum or plasma albumin/glob ulin mass ratioon 01-24-2022 Albumin/Globulin [Mass ratio] 0.8 {ratio} 0.9-2.4 [facility] Work Phone: Serum or plasma [id number] protein tumor marker measurement (units/volume)on 01-24-2022 AFP.tumor marker Qn 6.0 ng/mL [facility] Work Phone: Comment on above: [employer] El ectrochemiluminescence Immunoassay(ECLIA) Please note reference intervalchangeValues obtained with different assay methods or kits cannotbe used interchangeably. Results cannot be interpreted asabsolute evidence of the presence or absence of malignantdisease.This test is not interpretable in females. Serum or plasma angiotensin converting enzyme measurement (enzymatic activity/volume)on 01-24-2022 Angiotensin converting enzyme [Catalytic activity/Vol] 84 U/L [facility] Work Phone: Serum or plasma calcium tabatha urement (mass/volume)on 01-24-2022 Calcium [Mass/Vol] 9.8 mg/dL 8.5-10.1 [facility] Work Phone: Serum or plasma creatinine m easurement (mass/volume)on 01-24-2022 Creatinine [Mass/Vol] 1.56 mg/dL 0.55-1.02 [facility] Work Phone: Comment on above: The validity of the calculated GFR & GFRAA in patients over 70 years has not been determined. Clinical correlation is essential. Serum or plasma ferritin nelida surement (mass/volume)on 01-24-2022 Ferritin [Mass/Vol] 11 ng/mL 8-252 [facility] Work Phone: Serum or plasma hepatitis B virus surface antigen detection by immunoassayon 01-24-2022 HBV surface Ag IA Ql Negative Negative [facility] Work Phone: Serum or plasma urea nitroge n measurement (mass/volume)on 01-24-2022 Urea nitrogen [Mass/Vol] 18 mg/dL 7-18 [facility] Work Phone: Serum perinuclear neutrophil cytoplasmic antibody titer by immunofluorescenceon 01-24-2022 Neutrophil cytoplasmic Ab.perinuclear IF (S) [Titer] <1:20 titer Neg:<1:20 [facility] Work Phone: Comment on above: The presence of posi tive fluorescence exhibiting P-ANCA orC- ANCA patterns alone is not specific for the diagnosis ofWegener's Granulomatosis (WG) or microscopic polyangiitis.Decisions about treatment should not be based solely onANCA IFA results. The [employer] ANCA Group Consensusrecommends follow up testing of positive sera with both LA-3 and MPO-ANCA enzyme immunoassays. As many as 5% serumsamples are positive only by EIA. Ref. AM J Clin [id number];111:507-513. Thin prep Papanicolaou smear with manual screeningon 01-24-2022 Thin prep Papanicolaou smear with manual screening 33 U/L 15-37 [facility] Work Phone: Thin prep Papanicolaou smear with manual screening 6 5-15 [facility] Work Phone: Thin prep Papanicolaou smear with manual screening 272 U/L 84-246 [facility] Work Phone: Whole blood hemoglobin A1c/t otal hemoglobin ratio (mass fraction)on 01-24-2022 HbA1c (Bld) [Mass fraction] 7.7 % 3.8-5.6 [facility] Work Phone: Comment on above: Normal < 5.7 % Predi abetic 5.7 - 6.4 % Diabetic >or= 6.5 % Please note range changes. Glucose Glucometer (BldC) [M ass/Vol]on 12-13-2021 Glucose [Mass/Vol] 121 mg/dL 70-[address] [facility] Work Phone: Comment on above: MANAGEMENT OF PATIEN T CARE PER NURSING PROTOCOL Basophil percentageon 2021 Creatinine [Mass/Vol] 1.6 mg/dL 0.55-1.02 [facility] Work Phone: Laboratory - Chemistry and C hemistry - challengeon 11-17-2021 GFR/1.73 sq M.predicted among non-blacks MDRD (S/P/Bld) [Vol rate/Area] 36.0000 mL/min/{1.73_m2} >60 [facility] Work Phone: ALLIED HEALTHon 04-10-2019 [facility] HNO ID: [id number] Author: DORI Freedman (Ct) Service: Radiology Author Type: Clinical Interior Surface Insulation Worker Type: [facility] Filed: 04/10/2019 11:01 AM Note Text: Radiology Service Progress Note PATIENT NAME: Robbin Morse DATE OF SERVICE: April 10, 2019 TIME: 11:00 AM PATIENT IDENTITY VERIFICATION COMPLETED USING TWO (2) METHODS: Patient confirmed name verbally and ID band matches.. PATIENT GENDER DATA: Female. status: : No status: NO. PATIENT RELEVANT IMPLANT DATA REVIEWED: Not Applicable RADIOLOGY DEPARTMENT: CT; Exam(s) Completed: CTA Cardiac PERIPHERAL IV DATA: iv started with ultrasound delaney mccartney SIGNED BY: DORI Freedman April 10, 2019 11:00 AM [facility] CT PULMONARY VEIN W IVCONon 04-10-2019 CT PULMONARY VEIN W IVCON * * *Final Report* * * DATE OF EXAM: Apr 10 2019 10:59AM [facility] [place] PULMONARY VE[place] W IVCON / PROCEDURE REASON: I48.0-Paroxysmal atrial fibrillation (HCC) * * * * Physician Interpretation * * * * Cardiac CTA of the pulmonary veins Direct Image Comparison: No HISTORY: 63 years Female patient with chronic atrial fibrillation - s/p PVI 12/2018 The patient is evaluated for post-procedural anatomy There is need to define pulmonary vein anatomy. TECHNIQUE: Out-patient scan SCANNER: Multi-detector CT technology (S[employer]ens Somatom Definition scanner) PROTOCOL: ECG-synchronized imaging of the chest with 1 and 3 mm slice reconstruction in systolic phase following the intravenous administration of contrast material The scan range extended from jose angel to the base of the heart Tube Voltage: [address] Dose-Length Product (DLP): 167 mGy*cm CT Dose Reduction Employed: Automated exposure control (AEC) Radiation Shielding Employed: Yes CONTRAST: IV administration of 90 ml Omnipaque 350 Scan acquisition was uncomplicated. For optimization of anatomic evaluation, advanced 3-D off-line postprocessing was performed on a dedicated workstation by the interpreting physician. This included multiplanar reconstruction, maximum intensity projections, and centerline reconstruction. Additional lung CAD STUDY LIMITATIONS: None RESULT: CHEST: visualized Chest wall anatomy: unremarkable visualized Lungs: Dependent atelectasis ill-defined Non-calcified 3 mm nodule left lower lung lobe (Image # 129). Incidental Finding: No follow-up imaging for this/these incidentally detected lung nodule(s) is recommended. If there are risk factors for lung malignancy, a follow-up chest CT exam could be obtained in 12 months. visualized Mediastinum: calcified left hilar lymph nodes visualized Pericardium: unremarkable visualized Central pulmonary artery: no evidence of central thrombus. Assessment of the distal branches is limited CARDIAC CHAMBERS: assessment is limited to the systolic reconstruction Left ventricle: normal size in systole Right ventricle: normal size in systole Right atrium: dilated; CENTRAL VENOUS and PULMONARY VENOUS RETURN: normal Coronary Sinus: unremarkable MITRAL VALVE: no mitral annular calcification LEFT ATRIUM: dilated; LA area 23 cm2 no thrombus DAISHA: no thrombus Linear structure at the interatrial septum, most consistent with the foramen ovale or a left atrial septal pouch. PULMONARY VEINS: Significant motion artifact at the pulmonary veins Major pulmonary veins are widely patent without evidence of pulmonary vein stenosis. Left sided veins originate from a common antrum Right middle vein has a common ostium with the right superior vein RSPV (right superior): Normal; absence of wall thickening and no luminal stenosis RIPV (right inferior): Normal; absence of wall thickening and no luminal stenosis RMPV (right middle): Normal; absence of wall thickening and no luminal stenosis LSPV (left superior): Normal; absence of wall thickening and no luminal stenosis LIPM (left inferior): Normal; absence of wall thickening and no luminal stenosis CORONARY ANATOMY: Normal origin of the coronary arteries. No calcified atherosclerotic changes of the coronary arteries. However, the current study is not optimized for coronary assessment. AORTA Aortic Valve: appears trileaflet, no leaflet calcification Aortic Root: Normal size, Diameter: 2.9 cm Ascending Thoracic Aorta: normal size, Diameter: 2.8 cm , no wall changes Aortic Arch: incompletely included in the range of the current study, , Descending Thoracic Aorta: normal size, mild calcification IMPRESSION: WIDELY PATENT PULMONARY VEINS - significant motion artifact LEFT ATRIUM: dilated; LA area 23 cm2 DAISHA: no thrombus Linear structure at the interatrial septum, most consistent with the foramen ovale or a left atrial septal pouch. visualized Lungs: ill-defined Non-calcified 3 mm nodule left lower lung lobe (Image # 129). Incidental Finding: No follow-up imaging for this/these incidentally detected lung nodule(s) is recommended. If there are risk factors for lung malignancy, a follow-up chest CT exam could be obtained in 12 months. Vidal Images reconstructed, saved, and available in [facility], '[facility] Images' Help Desk Coordinator: BRENDA Transcribe Date/Time: Apr 10 2019 12:48P Dictated by : TRACEY RIVERA MD This examination was interpreted and the report reviewed and electronically signed by: TRACEY RIVERA MD on Apr 10 2019 1:08PM EST [id number] [facility] Creatinineon 04-10-2019 Creatinine mass conc 52 . Normal [facility] Comment on above: Result Comment: eGFR (Estimated GFR) Units of measure: mL/min/1.73 meters squared eGFR is derived from the reexpressed MDRD Study equation using the following parameters: serum creatinine, age, gender and race. The creatinine assay has been calibrated to be traceable to IDMS. An eGFR <60 mL/min/1.73m2 for >3 months is consistent with chronic kidney disease. Refer to KDOQI guidelines for clinical interpretation. In patients with unstable renal function, e.g. those with acute kidney injury, the eGFR may not accurately reflect actual GFR. Performed By: #### C RET1 #### [facility] [address] Creatinine mass conc mg/dL Normal [facility] Comment on above: Performed By: #### C RET1 #### [facility] [address] [place] [address] Creatinine mass conc 1.06 mg/dL High 0.58-0.[address] [facility] Comment on above: Performed By: #### C RET1 #### [facility] [address] NURSING PROGon 04-10-2019 Protein mass conc HNO ID: [id number] Author: Sammi (Rn) KELSEA Littlejohn Service: PICC Team Author Type: Registered Nurse Type: Nursing Progress Note Filed: 04/10/2019 11:54 AM Note Text: PICC/VASCULAR ACCESS PROGRESS NOTE SERVICE DATE: 04/10/2019 SERVICE TIME: 1040 Consulted for difficult IV access. 20g 1 3/4 inch placed in L arm d/t lack of vasculature placed sterile under ultrasound guidance. SIGNATURE: Sammi Littlejohn RN PATIENT NAME: Robbin Morse DATE: April 10, 2019 TIME: 11:51 AM PAGER/CONTACT #: [phone] [facility] [facility] 01-20-2019 [facility] HNO ID: [id number] Author: Kiko Barajas (Rt) Service: ? Author Type: Interior Surface Insulation Worker Type: Allied Health Filed: 01/20/2019 9:57 AM Note Text: Radiology Service Progress Note PATIENT NAME: Robbin Morse DATE OF SERVICE: January 20, 2019 TIME: 9:57 AM PATIENT IDENTITY VERIFICATION COMPLETED USING TWO (2) METHODS: Patient confirmed name verbally and ID band matches.. PATIENT GENDER DATA: Female. status: : No status: NO. PATIENT RELEVANT IMPLANT DATA REVIEWED: Not Applicable RADIOLOGY DEPARTMENT: General X-ray: Exam(s) Completed: Spine X-Ray(s): Cervical AP / LAT PERIPHERAL IV DATA: Not applicable SIGNED BY: RT Karl January 20, 2019 9:57 AM [facility] NURSING PROGon 01-20-2019 Protein mass conc HNO ID: [id number] Author: Lana TidwellRn) KELSEA Gaona Service: Nursing Author Type: Registered Nurse Type: Nursing Progress Note Filed: 01/20/2019 11:40 AM Note Text: Nursing Progress Note Patient Name: Robbin Morse Patient Location: [place] [address] [address]* Daily Note: 0700: Bedside report obtained. 0845: Assessment completed, medications given. NSR, VSS. Bilateral groin dressing taken off, no s/s of hematoma or infection, palpable pedal pulses. Right lateral neck has small bruised lump outlined by night RN. Per patient, site very sore and was much bigger last night, xray still needs to be obtained. 0900: RN speaks to machine set up technician about expediting the process getting patient down to xray of the neck prior to discharge. 0930: Xray obtained, RN text pages Brisa BARROSO of EP. 1145: Discharge instructions gone over with patient, lines removed, education completed regarding taking care of bilateral groin sites. This note was completed by: Lana Gaona RN [facility] Protein mass conc HNO ID: [id number] Author: Adonis TidwellRn) KELSEA Bruce Service: ? Author Type: Registered Nurse Type: Nursing Progress Note Filed: 01/20/2019 7:41 AM Note Text: Nursing Progress Note Patient Name: Robbin Morse Patient Location: [id number]/[facility]-024* Daily Note: 192: Received report from Kelsea Tijerina. 1999: Assessment complete, see flow sheet. 2299: Reassessment complete, see flow sheet. 399: Reassessment complete, see flow sheet. 704: Report given to KELSEA Tijerina This note was completed by: Adonis Bruce RN [facility] PLAN OF CAREon 01-20-2019 PLAN OF CARE HNO ID: [id number] Author: Sandeep Linda Service: Hospital Medicine Author Type: Physician Type: Plan of Care Filed: 01/19/2019 10:34 PM Note Text: Patient reported pain and swelling on the right side of her neck when she turned her head. She had PVI with ablation today but she did not notice any issue until this evening when she turned her head and noted a bruise on her neck. RN marked it and elevated head of bed. Evaluated patient. She has a 2 cm oblong shaped swelling with some mild bruissing noted on the left side of neck in the jugular area. I do not see any clear IV access marking that could have led a hematoma. Reviewed operative report and she had access via femorals. Will monitor for now and likely check a soft tissue neck X-ray. Counseled patient to notify if any worsening, difficultly swallowing or breathing. [facility] XR NECK SOFT TISSUE 2V AP/LA Ton 01-20-2019 XR NECK SOFT TISSUE 2V AP/LAT * * *Final Report* * * DATE OF EXAM: Jan 20 2019 9:49AM FVX 5238 - XR NECK SOFT TISSUE 2V AP/LAT / PROCEDURE REASON: Mass, lump or swelling, neck * * * * Physician Interpretation * * * * CLINICAL: Swelling in the neck TECHNIQUE: Two views of the soft tissues of the neck FINDINGS: There is no pre-vertebral soft tissue swelling. The epiglottis and aryepiglottic folds are within normal limits. The visualized osseous structures demonstrate normal alignment and cervical spondylosis predominantly in the lower cervical spine from levels of C5-C7 where there are large bulky anterior endplate osteophytes. No foreign body or subglottic narrowing is seen. IMPRESSION: Cervical spondylosis otherwise unremarkable soft tissue neck series Help Desk Coordinator: BRENDA Transcribe Date/Time: Jan 20 2019 4:18P Dictated by : AUSTIN MELCHOR MD This examination was interpreted and the report reviewed and electronically signed by: AUSTIN MELCHOR MD on Jan 20 2019 4:19PM EST [id number] [facility] ANES Yaquelin 01-19-2019 ANES POST HNO ID: [id number] Author: Caro Carias I Service: Anesthesiology Author Type: Anesthesiologist Type: Anesthesia PostOp Filed: 01/19/2019 3:06 PM Note Text: POST ANESTHESIA EVALUATION NOTE SERVICE DATE: 01/19/2019 SERVICE TIME: 3:06 PM : 1955 Vitals: 01/19/19630 Temp: (!) 35.8 ?C (96.4 ?F) 01/19/19630 BP: 168/65 01/19/19630 Pulse: 78 01/19/19630 Resp: 18 01/19/19630 SpO2: 98% Validated Vital Signs: Yes POST ANES STATUS: No apparent anesthetic complications. The patient is appropriately hydrated with stable respiratory and cardiovascular status. Patient has safe and adequate airway control. The patient has appropriate pain relief and no significant post operative nausea or vomiting. The patient has achieved baseline mental status. Intra-Operative Events: No Significant Anesthesia Events Further assessment by Anesthesia Service: None Other Remarks: SIGNATURE: Caro Carias MD PATIENT NAME: Robbin Morse DATE: January 19, 2019 TIME: 3:06 PM PAGER/CONTACT #: [phone] [facility] ANES PREOPon 01-19-2019 ANES PREOP HNO ID: [id number] Author: Caro Carias I Service: Anesthesiology Author Type: Anesthesiologist Type: Anesthesia PreOp Filed: 01/19/2019 8:35 AM Note Text: ANESTHESIOLOGY DAY OF SURGERY NOTE SERVICE DATE: 01/19/2019 SERVICE TIME: 8:34 AM : 1955 Procedure(s) (LRB): COMPLETE EPS W/PVI ABLATION (N/A) ADD'L PVI ABLATION (N/A) Surgeon(s): Kailee Sanchez MD Estimated body mass index is 28.93 kg/m? as calculated from the following: Height as of this encounter: 154.9 cm (5' 1). Weight as of this encounter: 69.4 kg (153 lb 1.6 oz). Most recent hematocrit and potassium results: Hematocrit 34.1 01/19/2019 Potassium 4.1 01/19/2019 ANES DOS/PREOP NOTE: Vitals: 01/19/19 0631 BP: 168/65 Pulse: 78 Resp: 18 Temp: (!) 35.8 ?C (96.4 ?F) SpO2: 98% Weight: 69.4 kg (153 lb 1.6 oz) Height: 154.9 cm (5' 1) ACTIVE PROBLEM LIST Hyperlipidemia With Target Ldl Less Than 100 Essential Hypertension, Benign Type 2 Diabetes Mellitus With Stage 3 Chronic Kidney Disease, Without Long-Term Current Use of Insulin (Hcc) Chronic Anticoagulation Renal Insufficiency Moderate Mitral Regurgitation Pulmonary Hypertension, Secondary Paroxysmal Atrial Fibrillation (Hcc) Iron Deficiency Anemia Due to Chronic Blood Loss Thrombocytopenia (Hcc) Leukopenia Vitamin B12 Deficiency PAST MEDICAL HISTORY Diagnosis Date - Anxiety 06/30/2009 - Essential hypertension, benign 11/04/2012 - Hyperlipidemia LDL goal < 100 11/04/2012 - Iron deficiency anemia due to chronic blood loss 09/19/2018 - Type II or unspecified type diabetes mellitus without mention of complication, not stated as uncontrolled 06/30/2009 PAST SURGICAL HISTORY Procedure Laterality Date - COLONOSCOP W/ OR W/O BRSH SPEC 10/08/2018 repeat in 5 years due to family history - PAST SURGICAL HISTORY OF c section x 2 - REMOVAL GALLBLADDER FAMILY HISTORY Problem Relation Age of Onset - Colon Cancer Mother - Diabetes Father - other (congestive heart failure) Father - other (GERD) Sister Social History: Social History Tobacco Use - Smoking status: Never Smoker - Smokeless tobacco: Never Used Substance Use Topics - Alcohol use: Yes Comment: occasional - Drug use: No No current facility-administered medications on file prior to encounter. Current Outpatient Medications on File Prior to Encounter: ferrous sulfate 325 mg (65 mg iron) tablet Take 1 tablet by mouth twice daily with meals. glimepiride (AMARYL) 2 mg tablet TAKE 1 TABLET DAILY WITH BREAKFAST Hydrochlorothiazide 12.5 mg capsule TAKE 1 CAPSULE DAILY metFORMIN (GLUCOPHAGE) 500 mg tablet TAKE 2 TABLETS TWICE A DAY metoprolol tartrate, short acting, (LOPRESSOR) 50 mg tablet Take 0.5 tablets by mouth twice daily. magnesium oxide (MAG-OX) 400 mg tablet Take 1 tablet by mouth once daily. rivaroxaban (XARELTO) 15 mg tablet Take 1 tablet by mouth daily with dinner. Current Facility-Administered Medications: promethazine 12.5 mg tab(s) (PHENERGAN) 12.5 mg ORAL Pre-Op Once Caro Carias I lactated ringers infusion 30 mL/hr INTRAVENOUS CONTINUOUS Caro Carias I Allergies: ALLERGIES Allergen Reactions - Actos [Pioglitazone* Swelling dyspnea - Cardizem [Diltiazem* Other: See Comments states it makes her blood sugar tali high - Januvia [Sitaglipti* Shortness of Breath chest pain and shortness of breath - Lipitor [Atorvastat* Other: See Comments myalgia - Pravastatin Other: See Comments Leg cramps - Zocor [Simvastatin] Intolerance DOS EXAM: Adequate NPO status: Yes Anesthetic risks, benefits, alternatives, personnel and consent discussed: Yes Patient agrees to proceed: Yes Previous Anesthesia: No history of adverse event. Airway Assessment: MP 2; Neck ROM: Full ROM without neurologic symptoms; Airway Evaluation: No significant abnormalities Symptoms of Sleep Apnea: None Dentition: Teeth intact Additional Physical Exam: Lungs: Lungs clear to auscultation. Good diaphragmatic excursion. Cardiac: normal S1 and S2; no rubs, no murmurs, and no gallops Additional Pertinent Findings: N/A Blood Products: Not anticipated for this procedure. Anesthetic Plan: General, Standard ASA Monitors Pain Management Plan: Parenteral or Oral ASA Class: 3 Other Medical Problems: None Chronic Beta Guido medication administered within 24 hours: Yes I have interviewed and examined the patient. I have reviewed the medical record and/or the pre-anesthesia evaluation, pertinent labs, and test results. Significant changes in the patient's condition since the History and Physical, not otherwise documented in primary service progress notes: No This contains updated information obtained within 48 hours of Surgery/Procedure. SIGNATURE: Caro Carias MD PATIENT NAME: Robbin Morse DATE: January 19, 2019 TIME: 8:34 AM CSN: [id number] Normal [facility] Basic Metabolic Panlon 01-19 Anion gap molar conc 15 mmol/L Normal 9-18 [facility] Comment on above: Performed By: #### C BC, BMP #### [place] [phone] Calcium mass conc 10.0 mg/dL Normal 8.5-10.5 [facility] Comment on above: Performed By: #### C BC, BMP #### [place] [phone] Chloride molar conc 99 mmol/L Normal 98-110 [facility] Comment on above: Performed By: #### C BC, BMP #### [place] [phone] CO2 molar conc 24 mmol/L Normal 23-32 [facility] Comment on above: Performed By: #### C BC, BMP #### [place] [phone] Creatinine mass conc 1.01 mg/dL Normal 0.70-1.40 [facility] Comment on above: Performed By: #### C BC, BMP #### [place] [phone] eGFR- Amer. >60 Normal >60 [facility] Comment on above: Performed By: #### C BC, BMP #### [place] [phone] GFR/1.73 sq M predicted among non-blacks MDRD vol rate/area (S/P/Bld) 55 . Low >60 [facility] Comment on above: Performed By: #### C BC, BMP #### [place] [phone] Glucose mass conc 178 mg/dL High 65-100 [facility] Comment on above: Performed By: #### C BC, BMP #### [place] [phone] Potassium molar conc 4.1 mmol/L Normal 3.5-5.0 [facility] Comment on above: Performed By: #### C BC, BMP #### [place] [phone] Sodium molar conc 138 mmol/L Normal 132-148 [facility] Comment on above: Performed By: #### C BC, BMP #### [place] [phone] Urea nitrogen mass conc 23 mg/dL Normal 8-25 [facility] Comment on above: Performed By: #### C BC, BMP #### [place] [phone] CBCon 01-19-2019 Erythrocyte distribution width Ratio (RBC) 14.3 % Normal 11.5-15.0 [facility] Comment on above: Performed By: #### C BC, BMP #### [place] [phone] Hematocrit Volume Fraction (Bld) 34.1 % Low 36.0-46.0 [facility] Comment on above: Performed By: #### C BC, BMP #### [place] [phone] Hemoglobin mass conc (Bld) 11.2 g/dL Low 11.5-15.5 [facility] Comment on above: Performed By: #### C BC, BMP #### [place] [phone] MCH Entitic mass (RBC) 31.0 pG Normal 26.0-34.0 [facility] Comment on above: Performed By: #### C BC, BMP #### [place] [phone] MCHC mass conc (RBC) 32.8 g/dL Normal 30.5-36.0 [facility] Comment on above: Performed By: #### C BC, BMP #### [place] [phone] MCV Entitic volume (RBC) 94.5 fL Normal 80.0-100.0 [facility] Comment on above: Performed By: #### Keven STEELE, BMP #### [place] [phone] Platelet mean volume Entitic volume (Bld) 10.0 fL Normal 9.0-12.7 [facility] Comment on above: Performed By: #### C CEDRIC, BMP #### [place] [phone] Platelets #/vol (Bld) 101 10*3/uL Low 150-400 [facility] Comment on above: Performed By: #### C CEDRIC, BMP #### [place] [phone] RBC #/vol (Bld) 3.61 10*6/uL Low 3.90-5.20 [facility] Comment on above: Performed By: #### C CEDRIC, BMP #### [place] [phone] WBC #/vol (Bld) 4.21 10*3/uL Normal 3.70-11.00 [facility] Comment on above: Performed By: #### C CEDRIC, BMP #### [place] [phone] Confirm Blood Typeon 019 ABO/RH(D) Positive Normal [facility] Comment on above: Performed By: #### Keven ONABO #### [place] [phone] ECG COMPLETEon 01-19-2019 ECG COMPLETE NAME : CLAUDETTE MORSE I PID : [id number] : 1955 Gender : Female Race : ORD : [id number] Procedure Date : Jan 19 2019 18:42:53 Edit Date : Jan 21 2019 09:37:14 Diagnosis:Sinus rhythm Low voltage, precordial leads Borderline repolarization abnormality Prolonged QT interval Abnormal ECG Confirmed by GASPER PALENCIA M.D. ([id number]) on 01/21/2019 9:36:58 AM Ventricular Rate : 69 BPM Atrial Rate : 69 BPM P-R Interval : 149 ms QRS Duration : 93 ms Q-T Interval : 476 ms QTC Calculation(Bezet) : 510 ms P [place] : 25 degrees R [place] : 9 degrees T [place] : -36 degrees Test Reason : s/p PVI Location : 400 : EKG [facility] Overread By : GASPER PALENCIA M.D. Edited By : GASPER PALENCIA M.D. Referred By : , Acquired by : MAL, [facility] ECG COMPLETE NAME : CLAUDETTE MORSE I PID : [id number] : 1955 Gender : Female Race : ORD : [id number] Procedure Date : Jan 19 2019 07:17:38 Edit Date : Jan 21 2019 09:35:13 Diagnosis:Sinus rhythm Abnormal R-wave progression, early transition Borderline repolarization abnormality Borderline prolonged QT interval Borderline ECG Confirmed by GASPER PALENCIA M.D. ([id number]) on 01/21/2019 9:35:08 AM Ventricular Rate : 72 BPM Atrial Rate : 72 BPM P-R Interval : 174 ms QRS Duration : 95 ms Q-T Interval : 455 ms QTC Calculation(Bezet) : 498 ms P [place] : 30 degrees R [place] : 10 degrees T [place] : -16 degrees Test Reason : Pre OP Location : 400 : [place] [address] Overread By : GASPER PALENCIA M.D. Edited By : GASPER PALENCIA M.D. Referred By : , Acquired by : , [facility] NURSING PROGon 01-19-2019 Protein mass conc HNO ID: [id number] Author: Lana (Rn) KELSEA Gaona Service: Nursing Author Type: Registered Nurse Type: Nursing Progress Note Filed: 01/19/2019 7:20 PM Note Text: Nursing Progress Note Patient Name: Robbin Morse Patient Location: [id number]/[facility]-024* Daily Note: 1500: Pt arrived to [facility] vitals stable with family at the bedside. Pt is in sinus rhythm. 1535:pt received morphine prior to removal of sheath. .Started removing pt sheaths in (left and right femoral). 1630:both sheaths removed. Bedrest started. Bedrest until 2230. Check pt site q 15 mins. No bleeding, no hematoma, pt is not experiencing pain. Pt did experience some nausea but no vomiting. 1730: Pt blood pressure is low. Pt states her bp is normally low. 1800: pt ate dinner. Pt family at the bedside. No complaints of pain or nausea. Lana Gaona RN observed and approves of all documentation and medications administration completed by Madyson Lo executive director of nursing. Note would not allow cosign. This note was completed by: Madyson GERARD Normal [facility] Type and Screenon 01-19-2019 ABO/RH(D) Positive Normal [facility] Comment on above: Performed By: #### T SCR #### [place] [phone] Urinalysison 01-19-2019 Bilirubin, Urine Negative Normal Negative [facility] Comment on above: Performed By: #### U A #### [place] [address] Clarity Nom (U) Clear Normal Clear [facility] Comment on above: Performed By: #### U A #### [place] [phone] Color Nom (U) Straw Critically abnormal Yellow [facility] Comment on above: Performed By: #### U A #### [place] [phone] Comments SEE COMMENT Normal [facility] Comment on above: Result Comment: Micr oscopic Examination Performed Performed By: #### U A #### [place] [phone] Glucose Ql (U) Negative Normal Negative [facility] Comment on above: Performed By: #### U A #### [place] [id number] Hemoglobin/Blood,Ur Small Critically abnormal Negative [facility] Comment on above: Performed By: #### U A #### [place] [phone] Ketones Ql (U) Negative Normal Negative [facility] Comment on above: Performed By: #### U A #### [address] Leukest Negative Normal Negative [facility] Comment on above: Performed By: #### U A #### [place] [phone] Nitrite Ql (U) Negative Normal [facility] Comment on above: Performed By: #### U A #### [address] pH (Bld) 6.0 Normal 5.0-8.0 [facility] Comment on above: Performed By: #### U A #### [address] Protein mass conc (U) Negative Normal Negative [facility] Comment on above: Performed By: #### U A #### [place] [phone] RBC #/vol (U) Negative Normal [facility] Comment on above: Performed By: #### U A #### [place] [phone] Specific [place], Ur 1.011 Normal 1.005-1.030 [facility] Comment on above: Performed By: #### U A #### [address] Urobilinogen Qn (U) <2.0 Normal <2.0 [facility] Comment on above: Performed By: #### U A #### [address] WBC #/vol (Bld) Negative Normal [facility] Comment on above: Performed By: #### U A #### [facility] [address] [place] [address] ANES Yaquelin 10-08-2018 ANES POST HNO ID: [id number] Author: Sergey Fontaine MD Service: Anesthesiology Author Type: Anesthesiologist Type: Anesthesia PostOp Filed: 10/08/2018 2:34 PM Note Text: POST ANESTHESIA EVALUATION NOTE SERVICE DATE: 10/08/2018 SERVICE TIME: 1400 : 1955 Vitals: 10/08/18 1134 10/08/18 1327 10/08/18 1400 Temp: 36.4 ?C (97.5 ?F) 36.3 ?C (97.3 ?F) 36.7 ?C (98.1 ?F) 10/08/18 1327 10/08/18 1330 10/08/18 1345 10/08/18 1400 BP: (!) 84/44 (!) 91/48 111/57 116/57 10/08/18 1327 10/08/18 1330 10/08/18 1345 10/08/18 1400 Pulse: (!) 54 (!) 54 64 62 10/08/18 1327 10/08/18 1330 10/08/18 1345 10/08/18 1400 Resp: 16 16 16 16 10/08/18 1327 10/08/18 1330 10/08/18 1345 10/08/18 1400 SpO2: 99% 99% 99% 99% Validated Vital Signs: Yes POST ANES STATUS: No apparent anesthetic complications. The patient is appropriately hydrated with stable respiratory and cardiovascular status. Patient has safe and adequate airway control. The patient has appropriate pain relief and no significant post operative nausea or vomiting. The patient has achieved baseline mental status. Intra-Operative Events: No Significant Anesthesia Events Further assessment by Anesthesia Service: None Other Remarks: SIGNATURE: Sergey oFntaine MD PATIENT NAME: Robbin Morse DATE: October 08, 2018 TIME: 2:34 PM PAGER/CONTACT #: [facility] ANES PREOPon 10-08-2018 ANES PREOP HNO ID: [id number] Author: Samuel Vogt Service: Anesthesiology Author Type: Anesthesiologist Type: Anesthesia PreOp Filed: 10/08/2018 11:33 AM Note Text: ANESTHESIOLOGY DAY OF SURGERY NOTE SERVICE DATE: 10/08/2018 SERVICE TIME: 11:33 AM : 1955 Procedure(s) (LRB): COLONOSCOPY (N/A) EGD (N/A) Surgeon(s): Nayeli Busby Estimated body mass index is 29.66 kg/m? as calculated from the following: Height as of 09/25/18: 154.9 cm (5' 1). Weight as of 10/03/18: 71.2 kg (157 lb). Most recent hematocrit and potassium results: Hematocrit 25.8 09/11/2018 Potassium 4.4 08/11/2018 ANES DOS/PREOP NOTE: Vitals: There were no vitals filed for this visit. ACTIVE PROBLEM LIST Hyperlipidemia With Target Ldl Less Than 100 Essential Hypertension, Benign Type 2 Diabetes Mellitus With Stage 3 Chronic Kidney Disease, Without Long-Term Current Use of Insulin (Hcc) Chronic Anticoagulation Renal Insufficiency Moderate Mitral Regurgitation Pulmonary Hypertension, Secondary Paroxysmal Atrial Fibrillation (Hcc) Iron Deficiency Anemia Due to Chronic Blood Loss PAST MEDICAL HISTORY Diagnosis Date - Anxiety 06/30/2009 - Essential hypertension, benign 11/04/2012 - Hyperlipidemia LDL goal < 100 11/04/2012 - Iron deficiency anemia due to chronic blood loss 09/19/2018 - Type II or unspecified type diabetes mellitus without mention of complication, not stated as uncontrolled 06/30/2009 PAST SURGICAL HISTORY Procedure Laterality Date - PAST SURGICAL HISTORY OF c section x 2 - REMOVAL GALLBLADDER FAMILY HISTORY Problem Relation Age of Onset - Colon Cancer Mother - Diabetes Father - other (congestive heart failure) Father - other (GERD) Sister Social History: Social History Substance Use Topics - Smoking status: Never Smoker - Smokeless tobacco: Never Used - Alcohol use Yes Comment: occasional No current facility-administered medications on file prior to encounter. Current Outpatient Prescriptions on File Prior to Encounter: ferrous sulfate 325 mg (65 mg iron) tablet Take 1 tablet by mouth twice daily with meals. flecainide (TAMBOCOR) 50 mg tablet Take 1 tablet by mouth twice daily. (Patient taking differently: Take 25 mg by mouth twice daily. ) glimepiride (AMARYL) 2 mg tablet TAKE 1 TABLET DAILY WITH BREAKFAST Hydrochlorothiazide 12.5 mg capsule TAKE 1 CAPSULE DAILY magnesium oxide (MAG-OX) 400 mg tablet Take 1 tablet by mouth once daily. metFORMIN (GLUCOPHAGE) 500 mg tablet TAKE 2 TABLETS TWICE A DAY metoprolol tartrate, short acting, (LOPRESSOR) 50 mg tablet Take 0.5 tablets by mouth twice daily. rivaroxaban (XARELTO) 15 mg tablet Take 1 tablet by mouth daily with dinner. Current Facility-Administered Medications: NaCl 0.9% iv infusion 30 mL/hr INTRAVENOUS CONTINUOUS Nayeli Busby Allergies: ALLERGIES Allergen Reactions - Actos [Pioglitazone* Swelling dyspnea - Flecainide Other: See Comments Muscle weakness and dyspnea - Januvia [Sitaglipti* Shortness of Breath chest pain and shortness of breath - Lipitor [Atorvastat* Other: See Comments myalgia - Pravastatin Other: See Comments Leg cramps - Zocor [Simvastatin] Intolerance DOS EXAM: Adequate NPO status: Yes Anesthetic risks, benefits, alternatives, personnel and consent discussed: Yes Patient agrees to proceed: Yes Previous Anesthesia: No history of adverse event. Airway Assessment: MP 2; Neck ROM: Full ROM without neurologic symptoms; Airway Evaluation: No significant abnormalities Symptoms of Sleep Apnea: None Dentition: Teeth intact Additional Physical Exam: Lungs: Patient health status unchanged since recent history and physical. See history and physical for exam findings. Cardiac: Patient health status unchanged since recent history and physical. See history and physical for exam findings. Additional Pertinent Findings: N/A Blood Products: Not anticipated for this procedure. Anesthetic Plan: MAC with Sedation Pain Management Plan: Parenteral or Oral ASA Class: 3 Other Medical Problems: None I have interviewed and examined the patient. I have reviewed the medical record and/or the pre-anesthesia evaluation, pertinent labs, and test results. Significant changes in the patient's condition since the History and Physical, not otherwise documented in primary service progress notes: No This contains updated information obtained within 48 hours of Surgery/Procedure. SIGNATURE: Samuel Vogt MD PATIENT NAME: Robbin Morse DATE: October 08, 2018 TIME: 11:33 AM CSN: [id number] [facility] HISTORY PHYSICALon 8 HISTORY PHYSICAL HNO ID: [id number] Author: Nayeli Busby Service: General Surgery Author Type: Physician Type: HANDP Filed: 10/08/2018 11:53 AM Note Text: HISTORY AND PHYSICAL ? Robbin Morse 1955 ? REFERRING PHYSICIAN: Austin Bowers III, MD ? CHIEF COMPLAINT: Consult ? HPI: The patient is a 63 year old female referred for anemia. Robbin notes a personal history of colon cancer in a first-degree relative-mother. She denies any change in bowel habits, weight changes, blood in stools, black tarry stools or abdominal pain. The patient notes occasional acid reflux with certain foods, particularly tomato sauces. ? Robbin has not undergone prior endoscopy. The patient was recently found to have significant iron deficiency anemia on laboratory studies. She was also ordered to have hemoccult testing by her PCP but did not complete this and has since started on iron supplementation. ? Component Latest Ref Rng AND Units 09/11/2018 09/16/2018 WBC 3.70 - 11.00 k/uL 4.31 ? RBC 3.90 - 5.20 m/uL 2.96 (L) ? Hemoglobin 11.5 - 15.5 g/dL 7.6 (L) ? Hematocrit 36.0 - 46.0 % 25.8 (L) ? MCV 80.0 - 100.0 fL 87.2 ? MCH 26.0 - 34.0 pG 25.7 (L) ? MCHC 30.5 - 36.0 g/dL 29.5 (L) ? RDW-CV 11.5 - 15.0 % 14.8 ? Platelet Count 150 - 400 k/uL 135 (L) ? MPV 9.0 - 12.7 fL 11.2 ? Absolute nRBC <0.01 k/uL <0.01 ? Iron 41 - 186 ug/dL ? 35 (L) TIBC 232 - 386 ug/dL ? 442 (H) Transferrin Saturation 15 - 57 % ? 8 (L) Ferritin 14.7 - 205.1 ng/mL ? 13.6 (L) ? Patient notes generalized fatigue over the last couple of months. States before she knew about the anemia she had attributed this to her flecainide. ? Patient follows with cardiology for paroxysmal atrial fibrillation. This has not been responsive to rhythm control medication. 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 She is referred for endoscopic evaluation for possible GI source of chronic blood loss. ? Patient's past medical history in addition to atrial fibrillation is significant for hypertension, type 2 diabetes mellitus, chronic kidney disease. Patient denies any chest pain, shortness of breath or recent hospitalizations. Denies any problems with sedation in the past. ? ? PAST?MEDICAL?HISTORY PAST MEDICAL HISTORY Diagnosis Date - Anxiety 06/30/2009 - Essential hypertension, benign 11/04/2012 - Hyperlipidemia LDL goal < 100 11/04/2012 - Iron deficiency anemia due to chronic blood loss 09/19/2018 - Type II or unspecified type diabetes mellitus without mention of complication, not stated as uncontrolled 06/30/2009 ? ? PAST?SURGICAL?HISTORY PAST SURGICAL HISTORY Procedure Laterality Date - PAST SURGICAL HISTORY OF ? ? ? c section x 2 - REMOVAL GALLBLADDER ? CURRENT?MEDICATIONS ? Current Outpatient Prescriptions: ferrous sulfate 325 mg (65 mg iron) tablet Take 1 tablet by mouth twice daily with meals. flecainide (TAMBOCOR) 50 mg tablet Take 1 tablet by mouth twice daily. (Patient taking differently: Take 25 mg by mouth twice daily. ) glimepiride (AMARYL) 2 mg tablet TAKE 1 TABLET DAILY WITH BREAKFAST Hydrochlorothiazide 12.5 mg capsule TAKE 1 CAPSULE DAILY metFORMIN (GLUCOPHAGE) 500 mg tablet TAKE 2 TABLETS TWICE A DAY metoprolol tartrate, short acting, (LOPRESSOR) 50 mg tablet Take 0.5 tablets by mouth twice daily. magnesium oxide (MAG-OX) 400 mg tablet Take 1 tablet by mouth once daily. rivaroxaban (XARELTO) 15 mg tablet Take 1 tablet by mouth daily with dinner. estradiol (ESTRACE) 0.01 % (0.1 mg/gram) vaginal cream Apply pea-sized amount to perineum and 1 applicator vaginally Mon, Wed, Sat for atrophic vaginitis. (Patient not taking: Reported on 05/16/2018 ) ? No current facility-administered medications for this visit. ? ALLERGIES: Actos [Pioglitazone Hcl]; Flecainide; Januvia [Sitagliptin]; Lipitor [Atorvastatin Calcium]; Pravastatin; Zocor [Simvastatin] ? PERSONAL HISTORY: SOCIAL?HISTORY Social History Marital status: Spouse name: Years of education: Number of children: ? Social History Main Topics Smoking status: Never Smoker ? Smokeless tobacco: Never Used Alcohol use: Yes Comment: occasional Drug use: No ? FAMILY HISTORY: FAMILY?HISTORY FAMILY HISTORY Problem Relation Age of Onset - Colon Cancer Mother ? - Diabetes Father ? - other (congestive heart failure) Father ? - other (GERD) Sister ? ? ? REVIEW OF SYMPTOMS: The review of systems data was entered by the nurse and reviewed by me ? Nursing Notes: Rody Nolberto NATARAJAN 10/03/2018 9:38 AM Signed REVIEW OF SYSTEMS: General: The patient NOTES fatigue, notes weight loss, denies weight gain, denies feeling hot, and NOTES feelings of cold. Eyes: The patient denies glaucoma, denies eye injury/surgery, wears glasses or contacts. Ear/Nose/Throat: The patient denies allergies, denies hayfever, denies ear infections, and denies bloody noses. Cardiovascular: The patient denies chest pain, denies heart disease, NOTES high blood pressure,denies cardiac stent, denies prior heart attack, NOTES irregular heart beat, denies high cholesterol, denies poor circulation, denies heart failure, other cardiac issues, denies claudication, denies cold feet, denies peripheral arterial stent. Respiratory: The patient denies tuberculosis, denies pneumonia, denies frequent cough, denies pulmonary embolism, denies shortness of breath, and denies coughing up blood. Gastrointestinal: The patient denies difficulty swallowing, denies acid reflux, denies ulcers, denies vomiting, denies jaundice/hepatitis, denies gallbladder problems, denies black or tarry stools, denies hemorrhoids, denies bleeding from rectum, denies diverticulitis, denies constipation, denies diarrhea, denies loss of stool control, and denies hernias. Kidney/Bladder: The patient denies kidney stones, denies urine infections, and denies bloody urine. Skin: The patient denies a history of skin cancer, denies bleeding/changing moles, and denies a history of skin rash. Neurologic: The patient denies a history of epilepsy/convulsions, denies headaches, denies head/spinal injuries, and denies stroke/TIA. Psychiatric: The patient denies psychiatric medications, denies depression, and denies voices, denies substance abuse. Endocrine: The patient denies thyroid disorders, NOTES diabetes, and denies hormonal problems. Hematologic: The patient denies a history of bruising, denies bleeding, and denies anemia, denies blood clots. Infections: The patient NOTES a history of measles and mumps, NOTES rheumatic fever, and denies sexually transmitted diseases. Musculoskeletal: The patient denies back pain/injury, denies back problems, denies sciatica, denies knee/foot trouble, denies arthritis, or denies gout. ? ? When was patient's last Mammogram screening? 12/2016 ? Last Colonoscopy: None ? Rody Arvizu LPN I have confirmed and edited as necessary, the PFSH and ROS obtained by others. ? PHYSICAL EXAMINATION: ? General: The patient is 63 year old female, well nourished, well hydrated in no acute distress. The patient is oriented to time, place, and person. ? VITALS: Blood pressure 130/78, pulse 72, weight 71.2 kg (157 lb), last menstrual period 10/14/2005. Body mass index is 29.66 kg/m?. ? HEENT: Normal cephalic, ataumatic, pupils are equally round, sclera are anicteric, mucous membranes are moist, oropharynx is clear. Neck has no masses, asymmetry or lymphadenopathy. ? Respiratory: Clear to auscultation and percussion. Normal respiratory excursion and pattern. ? Cardiac: Regular rhythm, normal S1/S2, no murmurs or rubs ? Abdominal exam: Soft, nontender, with no palpable masses. No hepatosplenomegaly. No palpable hernias. ? Rectal exam: exam deferred ? Extremities: no clubbing, cyanosis or edema. No adenopathy. ? Other: ? LABORATORY VALUES: As Noted ? RADIOLOGIC STUDIES: As Noted ? ? ? Assessment IMPRESSION: significant anemia with suspicion for GI source of blood loss, recommend upper and lower endoscopy for further evaluation ? PLAN: I have reviewed my findings with Dr. Busby. We will plan for screening colonoscopy to be performed under Monitored Anesthetic Care. We discussed the risks and benefits of the planned endoscopy. I have informed the patient that complications can occur including failure to complete the endoscopy and perforation. The patient had the opportunity to ask questions concerning the planned endoscopy. My staff has also explained the procedure to the patient in understandable terms and has given the patient printed material concerning the procedure and preparation instructions. The patient freely consents to endoscopy. ? I plan to use golytely bowel preparation for endoscopy-patient states already has Rx for bowel prep. Reviewed importance of good hydration before, during and after bowel preparation ? I plan for monitored anesthetic care. Patient reviewed with PACC ? Per Dr. Busby patient is instructed to remain on her routine medications including her anticoagulation for the procedure ? Patient was instructed to contact her PCP for instructions regarding her diabetic medications, which may require adjustment during bowel preparation and/or day of procedure ? Diagnoses: (D50.0) Iron deficiency anemia due to chronic blood loss (primary encounter diagnosis) (Z79.01) Chronic anticoagulation (N28.9) Renal insufficiency (I34.0) Moderate mitral regurgitation (I48.0) Paroxysmal atrial fibrillation (HCC) ? My findings have been communicated to Dr. Bowers via shared medical record. This note will be forwarded to Dr. Austin Bowers III MD. Return to Clinic: The patient is instructed to follow-up with me 1 week post operatively. ? Patient verbalized understanding of all above ? __ Aletha Boateng PA-C [facility] NURSING PROGon 10-08-2018 Protein mass conc HNO ID: [id number] Author: Jael TidwellRn) KELSEA Diaz Service: Nursing Author Type: Registered Nurse Type: Nursing Progress Note Filed: 10/08/2018 2:26 PM Note Text: Nursing Progress Note Patient Name: Robbin Morse Patient [facility] Pt received in ASCU on cart from PACU. No oral or rectal bleeding or drainage noted. Snack given. This note was completed by: Jael Diaz RN [facility] PT EDon 10-08-2018 PT ED HNO ID: [id number] Author: Jael TidwellRn) KELSEA Diaz Service: Nursing Author Type: Registered Nurse Type: Patient Education Filed: 10/08/2018 2:55 PM Note Text: POST OP LEARNING RESPONSE INSTRUCTION PROVIDED TO: Patient and family member METHOD OF INSTRUCTION: Individual instruction Written instruction - handouts Verbal instruction PATIENT / FAMILY RESPONSE: Information received as demonstrated by interest and questions FOLLOW-UP PLAN: Patient instructed to call with any further issues SUPPLEMENTAL MATERIAL: Post op discharge instructions REFERRAL (RECOMMENDATION): None Electronically Signed By: Jael Diaz RN In Department: [facility] ENDOSCOPY Normal [facility] SURGICAL PATHOLOGYon 018 SURGICAL PATHOLOGY Specimen originated from [facility] Specimen #: [id number] Submitting Physician: NAYELI BUSBY MD FINAL DIAGNOSIS Stomach, antrum, biopsy - Gastric antral-type mucosa with mild reactive gastropathy. JEL/plmary 10/10/2018 COMMENT No Helicobacter pylori organisms are identified. David Henriquez M.D. (Electronic Signature) SPECIMEN SUBMITTED A: ANTRAL BIOPSY CLINICAL DATA IRON DEF ANEMIA, LMP: MENOPAUSE GROSS DESCRIPTION A. Received in formalin is one piece of schultz, soft tissue measuring 0.3 x 0.2 x 0.2 cm. Totally submitted in one cassette. Gross examination performed at [facility], [address] [place] [address] V 10/09/2018 1:34:13 PM Date of Report: 10/10/2018 Date of Procedure: 10/08/2018 Date of Receipt: 10/09/2018 Submitted by: NAYELI BUSBY MD Location: [facility] Diagnostic interpretation performed at [facility], [address] [place] [address]. [facility] Comment on above: Performed By: #### P ATHS #### [employer] [place] [id number] [phone] NURSING PROGon 10-07-2018 Protein mass conc HNO ID: [id number] Author: Saira (Rn) KELSEA Delarosa Service: Nursing Author Type: Registered Nurse Type: Nursing Progress Note Filed: 10/07/2018 3:42 PM Note Text: PACC Nurse Progress Note History AND Physical: PACC Visit Date: N/A,ok by PAUL Banerjee to be NO PACC Original HANDP Date: 10/03/18 by PAUL Perry ED visit Date: N/A Outside HANDP Scanned Date: N/A Labs Within Last 6 Months: CBC: Date 09/11/18 cbc hgb 7.6/hct 25.8 BMP/CMP: Date 09/11/18 bmp- BS 118, bun 24, creatinine 1.2 Imaging Within Last 12 Months: N/A Cardiac Testing: EKG in last 12 Months: Yes: Date: 09/25/18 , Comment: Atrial fib with rapid ventricular response, rate 118, non specific ST and T wave abnormality, Last Menstrual Period: LMP Date: 2004 Postmenopausal >1yr: Yes, S/P Hysterectomy: No BMI Percentile (PEDS): N/A Risk Assessment: N/A Anesthesia Review: Email sent to [facility] anesthesia team for low H / H and if ok to proceed. Narrative: HX KIMBERLEY, paroxysmal atrial fib, renal insufficiency Per Dr. Busby patient is instructed to remain on her routine medications including her anticoagulation for the procedure Pre-op Considerations: HX DM - oral med Chart Check: IN PROGRESS Needs pre op instructions. Needs response from anesthesia for review of H/H Saira Delarosa RN October 07, 2018 11:54 AM 10/07/18 3:[address] Vogt--good to proceed. Chart check complete Sharon PATIENT PREOPERATIVE INSTRUCTIONS No ref. provider found has scheduled you for your procedure at this surgery center: [facility]: [phone] -- [address] [place] [id number]. Please read below carefully for your personalized instructions. Blood Thinning Medications: - Pt ok to continue her Xarelto for procedure per Dr Busby instructions. Dietary Restrictions: - follow bowel prep instructions from Dr Busby Pain Medications: Medications: Approved medications to take the morning of surgery with a sip of water: Tambocor, metoprolol Takes Xarelto at pm If you start any new medications after today's visit, please contact the surgeon's office. Important Reminders: - Candy, mints, gum and tobacco products are NOT permitted the morning of surgery. - Hearing aids, dentures and glasses may be worn the morning of surgery. - NO jewelry, body piercings, makeup, hairpins or contacts are to be worn the day of surgery. Shower pre op,no creams,lotions, powders dos If you develop symptoms such as a fever, cold, or flu, or have other changes to your health within TWO DAYS of scheduled surgery or the morning of surgery, please contact the surgery center above. Personal Belongings: - Leave ALL valuables and money at home or with family members. For Outpatient Procedures: - YOU MUST HAVE A RESPONSIBLE ACCOUNT INSTALLATION SPECIALIST TAKE YOU HOME. A GEM SETTER OR CHIEF HUMAN RESOURCES OFFICER CANNOT BE MADE A RESPONSIBLE ACCOUNT INSTALLATION SPECIALIST. - We recommend that a responsible person stays with you overnight to take care of you. - You cannot stay in a hotel alone after outpatient surgery. You will not be permitted to have your surgery, if you do not have someone to take care of you. Arrival Time for Surgery: - The Surgery Center or hospital where you are having surgery will call the afternoon before surgery (or Saturday for Saturday surgery) with a scheduled arrival time. - If you have not heard by 4 pm, please contact the surgery center above. Please be aware that emergency situations arise, which may delay or change your surgical time. If this happens, we will notify you as soon as possible and regret any inconvenience. KELSEA Herrera 10/07/18 12:20 pm [facility] HOSPon 10-03-2018 HOSP Patient:Nadya Morse MRN: Height:5' 1(1.549 m) Weight:157 lb (71.215 kg) Outpatient Medications as of 10/08/18: ferrous sulfate 325 mg (65 mg iron) tablet flecainide (TAMBOCOR) 50 mg tablet glimepiride (AMARYL) 2 mg tablet Hydrochlorothiazide 12.5 mg capsule magnesium oxide (MAG-OX) 400 mg tablet metFORMIN (GLUCOPHAGE) 500 mg tablet metoprolol tartrate, short acting, (LOPRESSOR) 50 mg tablet rivaroxaban (XARELTO) 15 mg tablet Admission/Clinic Administered Medications as of 10/08/18: NaCl 0.9% iv infusion Problem List: Hyperlipidemia with target LDL less than 100 [E78.5] Essential hypertension, benign [I10] Type 2 diabetes mellitus with stage 3 chronic kidney disease, without long-term current use of insulin (HCC) [E11.22, N18.3] Chronic anticoagulation [Z79.01] Renal insufficiency [N28.9] Moderate mitral regurgitation [I34.0] Pulmonary hypertension, secondary [[id number]] Paroxysmal atrial fibrillation (HCC) [I48.0] Iron deficiency anemia due to chronic blood loss [D50.0] Allergies: Actos [Pioglitazone Hcl] Flecainide Januvia [Sitagliptin] Lipitor [Atorvastatin Calcium] Pravastatin Zocor [Simvastatin] Date Verified: 10/03/18 Lab Values Lab Value Units Date High Low KYLE* 25.8 % 09/11/2018 46.0 36.0 Progress Notes ([facility]): Austin Bowers III MD 10/03/2018 3:24 PM Signed Benigno Phillips recommend holding the amaryl and metformin the day before the endoscopy; restart both medications with the first meal after the endoscopies. Take the hydrochlorothiazide after the endoscopies on the procedure day (not first thing in AM). Let me know if you have any other questions. I will probably be back in the office to do computer work this weekend and will be able to respond. Austin Bowers III MD Progress Notes ([facility]): Elvis Morocho MD 10/03/2018 12:[address] Busby does not usually recommend that blood thinner be stopped before his scopes. However, I am very concerned that you are anemic and still taking xarelto. I thought you were to have another CBC checked in a week or 2. Please have this done as soon as possible. If the blood counts are still low, we need to hold xarelto until the source of bleeding is identified. Elvis Morocho MD ===View-only below this line=== ----- Message ----- From: Robbin Morse Sent: 10/03/2018 11:56 AM EST To: Dr. Herman Morocho Subject: Medication Question (Not Renewal) On SatOct 08 I am scheduled for a colonoscopy and scope of my stomach and upper GI at the same time. The surgeon said to contact you about when or if I should stop taking xareto prior to the procedure. Please advise [facility] HOSPon 09-29-2018 HOSP Patient:Nadya Morse MRN: Height:5' 1(1.549 m) Weight:156 lb (70.761 kg) Outpatient Medications as of 01/19/19: flecainide (TAMBOCOR) 50 mg tablet ranitidine (ZANTAC) 150 mg tablet ferrous sulfate 325 mg (65 mg iron) tablet glimepiride (AMARYL) 2 mg tablet Hydrochlorothiazide 12.5 mg capsule metFORMIN (GLUCOPHAGE) 500 mg tablet metoprolol tartrate, short acting, (LOPRESSOR) 50 mg tablet magnesium oxide (MAG-OX) 400 mg tablet rivaroxaban (XARELTO) 15 mg tablet Admission/Clinic Administered Medications as of 01/19/19: acetaminophen 1,000 mg tab(s) (TYLENOL) promethazine 12.5 mg tab(s) (PHENERGAN) lactated ringers infusion Problem List: Hyperlipidemia with target LDL less than 100 [E78.5] Essential hypertension, benign [I10] Type 2 diabetes mellitus with stage 3 chronic kidney disease, without long-term current use of insulin (HCC) [E11.22, N18.3] Chronic anticoagulation [Z79.01] Renal insufficiency [N28.9] Moderate mitral regurgitation [I34.0] Pulmonary hypertension, secondary [[id number]] Paroxysmal atrial fibrillation (HCC) [I48.0] Iron deficiency anemia due to chronic blood loss [D50.0] Thrombocytopenia (HCC) [D69.6] Leukopenia [D72.819] Vitamin B12 deficiency [E53.8] Allergies: Actos [Pioglitazone Hcl] Cardizem [Diltiazem Hcl] Januvia [Sitagliptin] Lipitor [Atorvastatin Calcium] Pravastatin Zocor [Simvastatin] Date Verified: 01/19/19 Lab Values Lab Value Units Date High Low POTA* 4.1 mmol/L 01/19/2019 5.0 3.5 KYLE* 34.1 % 01/19/2019 46.0 36.0 Progress Notes ([facility]): Carla Soto LPN 01/15/2019 10:23 AM Signed Patient presents for B-12 injection. Denies any problems at this time. Patient instructed on any SE of medication, verbalized understanding and agreed to proceed with treatment. Tolerated injection well. Carla Soto LPN Progress Notes ([facility]): Aletha Fernandez PA-C 01/12/2019 4:47 PM Signed Prescription refill approved on January 12, 2019 and routed to pharmacy to be filled Aletha Fernandez PA-C [facility] HOSPon 05-12-2018 [facility] Get Medical Advic e (AGCARDWST) ROBBIN MORSE ([id number]) 1955 FDate Time Provider Department05/12/18 ELVIS MOROCHO AGCARDWST During your visit today, we recorded the following information about you:Elvis Morocho MD 05/13/2018 4:30 PM SignedDiscussed today at office visit.Han Cox As of Date: 05/12/2018 Noted Allergy ReactionACTOS (PIOGLITAZONE HCL) 04/19/2017 7 - Swelling Comments: dyspneaJANUVIA (SITAGLIPTIN) 05/02/2017 12 - Shortness of Breath Comments: chest pain and shortness of breathLIPITOR (ATORVASTATIN CALCIUM) 11/04/2012 14 - Other: See Comments Comments: myalgiaPRAVASTATIN 11/06/2013 14 - Other: See Comments Comments: Leg crampsZOCOR (SIMVASTATIN) 09/10/2011 5 - IntoleranceDate Reviewed: 02/25/2018Reviewed by: Aurelia Thornton) KELSEA Aguilar - Fully AssessedPrescriptions as of 05/12/2018 Sig: LISINOPRIL 5 MG TABLET Take 1 tablet by mouth once d*X METOPROLOL TARTRATE 25 MG TAB* 75mg twice daily, may increas* METFORMIN 500 MG TABLET Take 2 tablets by mouth twice* GLIMEPIRIDE 2 MG TABLET Take 1 tablet by mouth daily * HYDROCHLOROTHIAZIDE 12.5 MG C* Take 1 capsule by mouth once *X RIVAROXABAN 15 MG TABLET Take 1 tablet by mouth daily * ESTRADIOL 0.01% (0.1 MG/GRAM)* Apply pea-sized amount to per*Problem List As Of Date 05/12/2018 Noted Resolved Anxiety [F41.9] INVALID FOR*12/29/2015 Cervicalgia [M54.2] INVALID FOR*12/29/2015 Other and unspecified hyperlipidemia [E78.5] INVALID FOR*11/06/2013 Hyperlipidemia with target LDL less than 100 [E*INVALID FOR* Essential hypertension, benign [I10] INVALID FOR* Type 2 diabetes mellitus with stage 3 chronic k*INVALID FOR* Atrial fibrillation (HCC) [I48.91] INVALID FOR*05/16/2017 Chronic anticoagulation [Z79.01] INVALID FOR* Renal insufficiency [N28.9] INVALID FOR* Moderate mitral regurgitation [I34.0] INVALID FOR* Pulmonary hypertension, secondary (HCC) [[id number]*INVALID FOR* Paroxysmal atrial fibrillation (HCC) [I48.0] INVALID FOR* Status:Closed by TIRSO FISCHER RN on [facility]/13/[facility] Office Visit (AGCARDWST) ROBBIN MORSE ([id number]) 1955 FDate Time Provider Department02/25/18 3:00 PM ELVIS MOROCHO During your visit today, we recorded the following information about you: Pulse Blood pressure Weight 120/minute 107/69 73.5 kgElvis Morocho MD 02/25/2018 3:51 PM SignedPERTINENT CARDIAC HISTORYPAFValvular heart disease - moderate MR and TRHTNHLCRFRheumatic feverPulmonary hypertensionADHERENCE TO GUIDELINESACE-I or ARB for HF with prior LVEF<40 (NQF 0081) - N/AASA or Plavix for ASHD (NQF 0067) - N/ABeta guido for ASHD with prior [place] or prior LVEF<40 (NQF 0070) - N/ABeta guido for HF with prior LVEF<40 (NQF 0083) - N/AACE-I or ARB for ASHD with DM or prior LVEF<40 (NQF 0066) - N/AStatin therapy for ASHD or FHL or DM - N/ABMI documented and plan if >25 (NQF 0421) - lifestyle recommendation formTobacco use screening and referral (NQF 0028) - lifestyle recommendation formRecommendation for whole food, plant based diet - lifestyle recommendation formCLINICAL IMPRESSION/PLAN:Robbin Morse has recurrent atrial fibrillation, which is largelyasymptomatic. I discussed possible treatment including rate control, rhythmcontrol and ablation. She is planning to take a vacation in the next few weeksand does not want to make any change in medication other than adjusting herbeta guido for better rate control. She will increase her metoprolol to shortacting 25 milligrams twice daily and I have asked her to contact me with vitalsigns later this week. We will assure good rate control prior to her leaving onvacation.Prior to initiating therapy with an antiarrhythmic drug, she will undergostress testing. She wishes to defer this until after she returns from vacation.We discussed the importance of rate control with respect to cardiomyopathy andworsening of her valvular heart disease with diastolic dysfunction and CHF.This has been an issue in the past.I will see her in 3 months or as needed, but I've asked her to get in touchwith me when she returns from vacation so that we can schedule her stress test.Written and verbal health teaching given to patient, patient verbalizesunderstanding and agrees with treatment plan.DIAGNOSIS FOR VISIT:PAFHISTORY OF PRESENT ILLNESSRobbin Morse returns for follow-up of her atrial fibrillation. She reportsstable exercise tolerance. She has been taking Toprol once daily. She's hadoccasional sensation of palpitations, but none the last several days. She's hadno sustained episodes.She denies chest pain. She's had no orthopnea, edema, syncope, TIAs, amaurosisor claudication.ALLERGIES:SHALINI RGIESAllergen Reactions- Actos [Pioglitazone* Swelling dyspnea- Januvia [Sitaglipti* Shortness of Breath chest pain and shortness of breath- Lipitor [Atorvastat* Other: See Comments myalgia- Pravastatin Other: See Comments Leg cramps- Zocor [Simvastatin] IntoleranceCURRENT OUTPATIENT MEDICATIONS:metoprolol succinate ER (TOPROL XL) 25 mg 24 hr tablet Take 1 tablet by mouthonce daily.metFORMIN (GLUCOPHAGE) 500 mg tablet Take 2 tablets by mouth twice daily.glimepiride (AMARYL) 2 mg tablet Take 1 tablet by mouth daily with breakfast.lisinopril (PRINIVIL) 20 mg tablet Take 1 tablet by mouth once daily.Hydrochlorothiazide 12.5 mg capsule Take 1 capsule by mouth once daily.rivaroxaban (XARELTO) 15 mg tablet Take 1 tablet by mouth daily with dinner.estradiol (ESTRACE) 0.01 % (0.1 mg/gram) vaginal cream Apply pea-sized amountto perineum and 1 applicator vaginally Mon, Wed, Sat for atrophic vaginitis.PHYSICAL EXAMINATION:VITAL SIGNS: BP 107/69 Pulse 120 Wt 162 lb 1.6 oz (73.5kg) LMP 10/14/2005Chest: Clear to percussion and auscultation. Trachea is midline. Air entry isequal. Cardiac: Irregularly irregular rhythm. S1 and S2 are normal. PMI isnondisplaced. There is a 2/6 murmur of tricuspid insufficiency. Carotids arebrisk without bruits. JVP is less than 10 cm. Abdomen: Soft and nontender.There are no pulsatile masses or bruits. No liver enlargement. Bowel soundsare active. Extremities: No edema. Pulses are intact and symmetrical.EKG shows atrial fibrillation with rapid ventricular response and nonspecificrepolarization changes. There is no change since 01/17/17.Recent labs were reviewed. Renal function is mildly impaired, but stable.Electronically Signed:Timothy Cox 2017 3:26 PMC: Austin Bowers MD 02/25/2018 3:27 PM SignedLIFESTYLE CHANGEA healthy lifestyle is the most important component of your overall treatmentplan. Please give serious thought to the following areas and commit to makinglong term changes.EAT A WHOLE FOOD, PLANT BASED DIETThe nutrition your body gets is more important than the medicine you take.What matters most is the overall way you eat. We encourage you to minimize theuse of animal products (which include dairy and all meats except fatty fish)and use whole, unprocessed plant foods to provide your protein, vitamins andother nutrients. We have a lot of information to share with you on this topic. We also hold Shared Medical Appointments, where you can come visit with in the company of other patients and spend over an hour talking aboutthe challenges of changing the way you eat. This is not a diet. It is a wayof life that you will keep with you.EXERCISE REGULARLYIt is not important to spend hours in the gym, lifting weights and perspiringheavily. A total of 2-3 hours per week of aerobic (causing you to bemoderately short of breath) exercise is sufficient to improve your health.Talk to us before you begin a new exercise program, if you have heart diseaseor experience shortness of breath or chest pain.REDUCE STRESSChronic emotional and physical stress leads to disease. Ways of reducingstress include meditation, visualization, prayer, yoga and other forms ofrelaxation therapy. Consistency is the vidal. Find a technique that works foryou and do it every day.CULTIVATE RELATIONSHIPSLoneliness and isolation have a major negative impact on health. Seek outothers who can love, care for and nurture you. Avoid hurtful relationships.MAINTAIN IDEAL BODY WEIGHTThe best way to do this is to do all the things above. Our bodies naturallyfind the right weight if we keep moving and feed ourselves the right food. Ifyour BMI is greater than 25, we strongly recommend a referral to a weightmanagement program. Please speak to us or your family physician aboutavailable programs.AVOID NICOTINE IN ALL FORMSThis includes all tobacco products, whether chewed, smoked, vaped, or rubbed onthe skin. Smoking cessation programs, which can make use of tobaccosubstitutes, medications to suppress cravings and behavior management, areavailable. Please contact your family physician about programs in your area.Referring Provider: ELVIS MOROCHO [[id number]]Allergies As of Date: 02/25/2018 Noted Allergy ReactionACTOS (PIOGLITAZONE HCL) 04/19/2017 7 - Swelling Comments: dyspneaJANUVIA (SITAGLIPTIN) 05/02/2017 12 - Shortness of Breath Comments: chest pain and shortness of breathLIPITOR (ATORVASTATIN CALCIUM) 11/04/2012 14 - Other: See Comments Comments: myalgiaPRAVASTATIN 11/06/2013 14 - Other: See Comments Comments: Leg crampsZOCOR (SIMVASTATIN) 09/10/2011 5 - IntoleranceDate Reviewed: 02/25/2018Reviewed by: Aurelia (Rn) KELSEA Aguilar - Fully AssessedReason for Visit: Established Patient [175]Primary Visit Diagnosis:Hypertension, essential [I10] Other Visit Diagnoses:Non-rheumatic mitral regurgitation [I34.0] PAF (paroxysmal atrial fibrillation) (HCC) [I48.0]Order(s):metoprolol tartrate, short acting, (LOPRESSOR) 25 mg tabletTake 1 tablet by mouth twice daily.Disp: 180 tabletRfl: 3Prescriptions as of 02/25/2018 Sig: METFORMIN 500 MG TABLET Take 2 tablets by mouth twice* GLIMEPIRIDE 2 MG TABLET Take 1 tablet by mouth daily * LISINOPRIL 20 MG TABLET Take 1 tablet by mouth once d* HYDROCHLOROTHIAZIDE 12.5 MG C* Take 1 capsule by mouth once * RIVAROXABAN 15 MG TABLET Take 1 tablet by mouth daily * METOPROLOL TARTRATE 25 MG TAB* Take 1 tablet by mouth twice * ESTRADIOL 0.01% (0.1 MG/GRAM)* Apply pea-sized amount to per*Problem List As Of Date 02/25/2018 Noted Resolved Anxiety [F41.9] INVALID FOR*12/29/2015 Cervicalgia [M54.2] INVALID FOR*12/29/2015 Other and unspecified hyperlipidemia [E78.5] INVALID FOR*11/06/2013 Hyperlipidemia with target LDL less than 100 [E*INVALID FOR* Essential hypertension, benign [I10] INVALID FOR* Type 2 diabetes mellitus with stage 3 chronic k*INVALID FOR* Atrial fibrillation (HCC) [I48.91] INVALID FOR*05/16/2017 Chronic anticoagulation [Z79.01] INVALID FOR* Renal insufficiency [N28.9] INVALID FOR* Moderate mitral regurgitation [I34.0] INVALID FOR* Pulmonary hypertension, secondary (HCC) [HMS484*INVALID FOR* Paroxysmal atrial fibrillation (HCC) [I48.0] INVALID FOR* Other instructions from your clinician: LIFESTYLE CHANGE A healthy lifestyle is the most important component of your overall treatment plan. Please give serious thought to the following areas and commit to making extermination supervisor changes. EAT A WHOLE FOOD, PLANT BASED DIET The nutrition your body gets is more important than the medicine you take. What matters most is the overall way you eat. We encourage you to minimize the use of animal products (which include dairy and all meats except fatty fish) and use whole, unprocessed plant foods to provide your protein, vitamins and other nutrients. We have a lot of information to share with you on this topic. We also hold Shared Medical Appointments, where you can come visit with Dr. Morocho in the company of other patients and spend over an hour talking about the challenges of changing the way you eat. This is not a diet. It is a way of life that you will keep with you. EXERCISE REGULARLY It is not important to spend hours in the gym, lifting weights and perspiring heavily. A total of 2-3 hours per week of aerobic (causing you to be moderately short of breath) exercise is sufficient to improve your health. Talk to us before you begin a new exercise program, if you have heart disease or experience shortness of breath or chest pain. REDUCE STRESS Chronic emotional and physical stress leads to disease. Ways of reducing stress include meditation, visualization, prayer, yoga and other forms of relaxation therapy. Consistency is the vidal. Find a technique that works for you and do it every day. CULTIVATE RELATIONSHIPS Loneliness and isolation have a major negative impact on health. Seek out others who can love, care for and nurture you. Avoid hurtful relationships. MAINTAIN IDEAL BODY WEIGHT The best way to do this is to do all the things above. Our bodies naturally find the right weight if we keep moving and feed ourselves the right food. If your BMI is greater than 25, we strongly recommend a referral to a weight management program. Please speak to us or your family physician about available programs. AVOID NICOTINE IN ALL FORMS This includes all tobacco products, whether chewed, smoked, vaped, or rubbed on the skin. Smoking cessation programs, which can make use of tobacco substitutes, medications to suppress cravings and behavior management, are available. Please contact your family physician about programs in your area.Prescriptions ordered this encounter Disp Refills Start End METOPROLOL SUCCINATE ER 25 MG TABLET* 02/25/2018 02/25/2018 Class: Med Update Route: ORAL Sig: Take 1 tablet by mouth once daily. METOPROLOL TARTRATE 25 MG TABLET 180 * 3 02/25/2018 Route: ORAL Sig: Take 1 tablet by mouth twice daily.Medications Discontinued During This Encounter metoprolol succinate ER (TOPROL XL) * 180 * 3 05/16/2017 02/25/2018 Route: ORAL Sig: Take 1 tablet by mouth twice daily. Disc: Reason for discontinue is not on file. metoprolol succinate ER (TOPROL XL) * 02/25/2018 02/25/2018 Class: Med Update Route: ORAL Sig: Take 1 tablet by mouth once daily. Disc: Reason for discontinue is not on file. Status:Closed by ELVIS MOROCHO MD on 02/25/18 [facility] PROGRESSon 02-25-2018 Protein HNO ID: [id number] thor: Elvis Graham: (none)Author Type: PhysicianType: Progress NotesFiled: 02/25/2018 3:51 PMNote Text:PERTINENT CARDIAC HISTORYPAFValvular heart disease - moderate MR and TRHTNHLCRFRheumatic feverPulmonary hypertensionADHERENCE TO GUIDELINESACE-I or ARB for HF with prior LVEF<40 (NQF 0081) - N/AASA or Plavix for ASHD (NQF 0067) - N/ABeta guido for ASHD with prior [place] or prior LVEF<40 (NQF 0070) - N/ABeta guido for HF with prior LVEF<40 (NQF 0083) - N/AACE-I or ARB for ASHD with DM or prior LVEF<40 (NQF 0066) - N/AStatin therapy for ASHD or FHL or DM - N/ABMI documented and plan if >25 (NQF 0421) - lifestyle recommendation formTobacco use screening and referral (NQF 0028) - lifestyle recommendationformRecommend ation for whole food, plant based diet - lifestyle recommendationformCLINICAL IMPRESSION/PLAN:Robbin Morse has recurrent atrial fibrillation, which is largelyasymptomatic. I discussed possible treatment including rate control,rhythm control and ablation. She is planning to take a vacation in thenext few weeks and does not want to make any change in medication otherthan adjusting her beta guido for better rate control. She will increaseher metoprolol to short acting 25 milligrams twice daily and I have askedher to contact me with vital signs later this week. We will assure goodrate control prior to her leaving on vacation.Prior to initiating therapy with an antiarrhythmic drug, she will undergostress testing. She wishes to defer this until after she returns fromvacation.We discussed the importance of rate control with respect to cardiomyopathyand worsening of her valvular heart disease with diastolic dysfunction andCHF. This has been an issue in the past.I will see her in 3 months or as needed, but I've asked her to get intouch with me when she returns from vacation so that we can schedule herstress test.Written and verbal health teaching given to patient, patient verbalizesunderstanding and agrees with treatment plan.DIAGNOSIS FOR VISIT:PAFHISTORY OF PRESENT ILLNESSRobbin Morse returns for follow-up of her atrial fibrillation. Shereports stable exercise tolerance. She has been taking Toprol once daily.She's had occasional sensation of palpitations, but none the last severaldays. She's had no sustained episodes.She denies chest pain. She's had no orthopnea, edema, syncope, TIAs,amaurosis or claudication.ALLERGIES:SHALINI RGIESAllergen Reactions- Actos [Pioglitazone* Swelling dyspnea- Januvia [Sitaglipti* Shortness of Breath chest pain and shortness of breath- Lipitor [Atorvastat* Other: See Comments myalgia- Pravastatin Other: See Comments Leg cramps- Zocor [Simvastatin] IntoleranceCURRENT OUTPATIENT MEDICATIONS:metoprolol succinate ER (TOPROL XL) 25 mg 24 hr tablet Take 1 tablet bymouth once daily.metFORMIN (GLUCOPHAGE) 500 mg tablet Take 2 tablets by mouth twice daily.glimepiride (AMARYL) 2 mg tablet Take 1 tablet by mouth daily withbreakfast.lisinopril (PRINIVIL) 20 mg tablet Take 1 tablet by mouth once daily.Hydrochlorothiazide 12.5 mg capsule Take 1 capsule by mouth once daily.rivaroxaban (XARELTO) 15 mg tablet Take 1 tablet by mouth daily withdinner.estradiol (ESTRACE) 0.01 % (0.1 mg/gram) vaginal cream Apply pea-sizedamount to perineum and 1 applicator vaginally Sat, Sat, Sat for atrophicvaginitis.PHYSICAL EXAMINATION:VITAL SIGNS: BP 107/69 Pulse 120 Wt 162 lb 1.6 oz (73.5kg) LMP112/15/2004Chest: Clear to percussion and auscultation. Trachea is midline. Airentry is equal. Cardiac: Irregularly irregular rhythm. S1 and S2 arenormal. PMI is nondisplaced. There is a 2/6 murmur of tricuspidinsufficiency. Carotids are brisk without bruits. JVP is less than 10cm. Abdomen: Soft and nontender. There are no pulsatile masses orbruits. No liver enlargement. Bowel sounds are active. Extremities: Noedema. Pulses are intact and symmetrical.EKG shows atrial fibrillation with rapid ventricular response andnonspecific repolarization changes. There is no change since 01/17/17.Recent labs were reviewed. Renal function is mildly impaired, but stable.Electronically Signed:Timothy Cox 2017 3:26 [facility]: Austin Bowers III [facility] CNOVon 08-28-2017 CNOV Office Visit (AGCARDWST) ROBBIN MORSE ([id number]) 1955 FDate Time Provider Rlxwbkguph72/1/17 2:30 PM ELVIS MOROCHO During your visit today, we recorded the following information about you: Pulse Blood pressure Weight 70/minute 112/59 72.1 kgElvis Morocho MD 08/28/2017 4:15 PM SignedPERTINENT CARDIAC HISTORYPAFValvular heart disease - moderate MR and TRHTNHLCRFRheumatic feverPulmonary hypertensionADHERENCE TO GUIDELINESACE-I or ARB for HF with prior LVEFANDlt;40 (NQF 0081) - N/AASA or Plavix for ASHD (NQF 0067) - N/ABeta guido for ASHD with prior [place] or prior LVEFANDlt;40 (NQF 0070) - N/ABeta guido for HF with prior LVEFANDlt;40 (NQF 0083) - N/AACE-I or ARB for ASHD with DM or prior LVEFANDlt;40 (NQF 0066) - N/AStatin therapy for ASHD or FHL or DM - N/ABMI documented and plan if ANDgt;25 (NQF 0421) - lifestyle recommendation formTobacco use screening and referral (NQF 0028) - lifestyle recommendation formRecommendation for whole food, plant based diet - lifestyle recommendation formCLINICAL IMPRESSION/PLAN:Robbin Morse is doing well. She's had no recurrent episodes of atrialfibrillation, although she may be having some silent episodes. She isadequately anticoagulated now and on rate control. I've advised her to continueher current medications. If she has breakthrough symptoms again, we willproceed with stress testing and initiation of flecainide, if stress test isnegative. We also discussed the potential benefit of ablation and she wouldprefer not to go that direction unless she is intolerant to medication or theyprove ineffective.She has mild pulmonary hypertension and valvular disease, although this doesnot appear to be related to rheumatic disease. I personally reviewed her echopictures today and concur that her LV function is normal.Her volume overload while was probably related to the Actos, although wolfgang has a predisposition to diastolic dysfunction.I will see her in 6 months or as needed.Written and verbal health teaching given to patient, patient verbalizesunderstanding and agrees with treatment plan.This note was generated using [employer] voice recognition system, and there may besome incorrect words, spellings, and punctuation that were not noted inchecking the note before saving.DIAGNOSIS FOR VISIT:PAFHypertensionMitral valve diseaseHISTORY OF PRESENT ILLNESSRobbin Morse returns for follow-up of her valvular heart disease,hypertension and atrial fibrillation. She is a prior patient of Dr. Kulkarni.She reports that her exercise tolerance has been better. She had some edemaover when she was placed on Actos, but that has resolved once the medicationwas discontinued. She's had no orthopnea. She denies syncope, TIAs, amaurosisand claudication. She's had a few brief episodes of palpitation but nothingsustained. These tend to occur during emotional stress. She has increased heractivity and is walking at least a few times a week. She's had no exertionalchest tightness.ALLERGIES:ALLERGI ESAllergen Reactions- Actos [Pioglitazone* Swelling dyspnea- Januvia [Sitaglipti* Shortness of Breath chest pain and shortness of breath- Lipitor [Atorvastat* Other: See Comments myalgia- Pravastatin Other: See Comments Leg cramps- Zocor [Simvastatin] IntoleranceCURRENT OUTPATIENT MEDICATIONS:rivaroxaban (XARELTO) 15 mg tablet Take 1 tablet by mouth daily with dinner.estradiol (ESTRACE) 0.01 % (0.1 mg/gram) vaginal cream Apply pea-sized amountto perineum and 1 applicator vaginally Sat, Sat, Sat for atrophic vaginitis.metoprolol succinate ER (TOPROL XL) 25 mg 24 hr tablet Take 1 tablet by mouthtwice daily.lisinopril (PRINIVIL) 20 mg tablet Take 1 tablet by mouth once daily.metFORMIN (GLUCOPHAGE) 500 mg tablet Take 2 tablets by mouth twice daily.glimepiride (AMARYL) 2 mg tablet Take 1 tablet by mouth daily with breakfast.Hydrochlorothiazi de 12.5 mg capsule Take 1 capsule by mouth once daily.PAST MEDICAL HISTORYDiagnosis Date- Anxiety 06/30/2009- Essential hypertension, benign 11/04/2012- Hyperlipidemia LDL goal ANDlt; 100 11/04/2012- Type II or unspecified type diabetes mellitus without mention ofcomplication, not stated as uncontrolled 06/30/2009No past surgical history on file.FAMILY HISTORYProblem Relation Age of Onset- GERD [Other] [OTHER] Sister- Diabetes Father- Colon Cancer Mother- congestive heart failure [Other] [OTHER] FatherSocial History Marital status: Spouse name: Years of education: Number of children:Social History Main Topics Smoking status: Never Smoker Smokeless status: Never Used Alcohol use: Yes Comment: occasionalREVIEW OF SYSTEMS: General: No chills, fever, weight loss, night sweats.Respiratory: No productive cough. Cardiac: As noted above. GI: No melena.: No dysuria. Musculoskeletal: No myalgias.PHYSICAL EXAMINATION: S/he is alert and in no distress.VITAL SIGNS: BP 112/59 Pulse 70 Wt 159 lb (72.1kg) LMP 10/14/2005SHEENT: Skin is warm and dry. No xanthelasmas appreciated. Pharynx isbenign. There is no oral cyanosis. Neck: supple. No adenopathy or thyroidenlargement. Chest: Clear to percussion and auscultation. Trachea is midline. Air entry is equal. There is no chest wall tenderness. Cardiac: Regularrhythm. S1 and S2 are normal. PMI is nondisplaced. There is a 2/6 murmur oftricuspid insufficiency. No click is heard. Carotids are brisk withoutbruits. JVP is less than 10 cm. Abdomen: Soft and nontender. There are nopulsatile masses or bruits. No liver enlargement. Bowel sounds are active.Extremities: Trace edema. Pulses are intact and symmetrical. No clubbing orcyanosis. No femoral bruits. Neurologic: Grossly normal motor and sensory.S/he is alert and oriented x4.Prior chart was reviewed in detail. Echocardiogram showed normal ejectionfraction. There is moderate mitral and tricuspid insufficiency.Prior EKG demonstrated atrial fibrillation with rapid ventricular response.There was no significant repolarization abnormality at a high rate.Renal function has gradually worsened over the last year. GFR is less than 50.TSH was normal. LDL was 93.Electronically Signed:Elvis Morocho MDAugust 28, 2017 3:42 [facility]:JONO Chiu MD 08/28/2017 3:43 PM SignedLIFESTYLE CHANGEA healthy lifestyle is the most important component of your overall treatmentplan. Please give serious thought to the following areas and commit to makinglong term changes.EAT A WHOLE FOOD, PLANT BASED DIETThe nutrition your body gets is more important than the medicine you take.What matters most is the overall way you eat. We encourage you to minimize theuse of animal products (which include dairy and all meats except fatty fish)and use whole, unprocessed plant foods to provide your protein, vitamins andother nutrients. We have a lot of information to share with you on this topic. We also hold Shared Medical Appointments, where you can come visit with in the company of other patients and spend over an hour talking aboutthe challenges of changing the way you eat. This is not a ANDquot;dietANDquot;.It is a way of life that you will keep with you.EXERCISE REGULARLYIt is not important to spend hours in the gym, lifting weights and perspiringheavily. A total of 2-3 hours per week of aerobic (causing you to bemoderately short of breath) exercise is sufficient to improve your health.Talk to us before you begin a new exercise program, if you have heart diseaseor experience shortness of breath or chest pain.REDUCE STRESSChronic emotional and physical stress leads to disease. Ways of reducingstress include meditation, visualization, prayer, yoga and other forms ofrelaxation therapy. Consistency is the vidal. Find a technique that works foryou and do it every day.CULTIVATE RELATIONSHIPSLoneliness and isolation have a major negative impact on health. Seek outothers who can love, care for and nurture you. Avoid hurtful relationships.MAINTAIN IDEAL BODY WEIGHTThe best way to do this is to do all the things above. Our bodies naturallyfind the right weight if we keep moving and feed ourselves the right food. Ifyour BMI is greater than 25, we strongly recommend a referral to a weightmanagement program. Please speak to us or your family physician aboutavailable programs.AVOID NICOTINE IN ALL FORMSThis includes all tobacco products, whether chewed, smoked, vaped, or rubbed onthe skin. Smoking cessation programs, which can make use of tobaccosubstitutes, medications to suppress cravings and behavior management, areavailable. Please contact your family physician about programs in your area.Referring Provider: CHARLENE KULKARNI [[id number]]Allergies As of Date: 08/28/2017 Noted Allergy ReactionACTOS (PIOGLITAZONE HCL) 04/19/2017 7 - Swelling Comments: dyspneaJANUVIA (SITAGLIPTIN) 05/02/2017 12 - Shortness of Breath Comments: chest pain and shortness of breathLIPITOR (ATORVASTATIN CALCIUM) 11/04/2012 14 - Other: See Comments Comments: myalgiaPRAVASTATIN 11/06/2013 14 - Other: See Comments Comments: Leg crampsZOCOR (SIMVASTATIN) 09/10/2011 5 - IntoleranceDate Reviewed: 08/28/2017Reviewed by: Joi Pelayo) Rajesh - Fully AssessedReason for Visit: Consult [502]Primary Visit Diagnosis:PAF (paroxysmal atrial fibrillation) (HCC) [I48.0] Other Visit Diagnosis:Other hyperlipidemia [E78.4]Order(s):rivaroxaban (XARELTO) 15 mg tabletTake 1 tablet by mouth daily with dinner.Disp: 90 tabletRfl: 3Prescriptions as of 08/28/2017 Sig: RIVAROXABAN 15 MG TABLET Take 1 tablet by mouth daily * ESTRADIOL 0.01% (0.1 MG/GRAM)* Apply pea-sized amount to per* METOPROLOL SUCCINATE ER 25 MG* Take 1 tablet by mouth twice * LISINOPRIL 20 MG TABLET Take 1 tablet by mouth once d* METFORMIN 500 MG TABLET Take 2 tablets by mouth twice* GLIMEPIRIDE 2 MG TABLET Take 1 tablet by mouth daily * HYDROCHLOROTHIAZIDE 12.5 MG C* Take 1 capsule by mouth once *Problem List As Of Date 08/28/2017 Noted Resolved Anxiety [F41.9] INVALID FOR*12/29/2015 Cervicalgia [M54.2] INVALID FOR*12/29/2015 Other and unspecified hyperlipidemia [E78.5] INVALID FOR*11/06/2013 Hyperlipidemia with target LDL less than 100 [E*INVALID FOR* Essential hypertension, benign [I10] INVALID FOR* Type 2 diabetes mellitus with stage 3 chronic k*INVALID FOR* Atrial fibrillation (HCC) [I48.91] INVALID FOR*05/16/2017 Chronic anticoagulation [Z79.01] INVALID FOR* Renal insufficiency [N28.9] INVALID FOR* Moderate mitral regurgitation [I34.0] INVALID FOR* Pulmonary hypertension, secondary (HCC) [GAD885*INVALID FOR* Paroxysmal atrial fibrillation (HCC) [I48.0] INVALID FOR* Other instructions from your clinician: LIFESTYLE CHANGE A healthy lifestyle is the most important component of your overall treatment plan. Please give serious thought to the following areas and commit to making extermination supervisor changes. EAT A WHOLE FOOD, PLANT BASED DIET The nutrition your body gets is more important than the medicine you take. What matters most is the overall way you eat. We encourage you to minimize the use of animal products (which include dairy and all meats except fatty fish) and use whole, unprocessed plant foods to provide your protein, vitamins and other nutrients. We have a lot of information to share with you on this topic. We also hold Shared Medical Appointments, where you can come visit with Dr. Morocho in the company of other patients and spend over an hour talking about the challenges of changing the way you eat. This is not a diet. It is a way of life that you will keep with you. EXERCISE REGULARLY It is not important to spend hours in the gym, lifting weights and perspiring heavily. A total of 2-3 hours per week of aerobic (causing you to be moderately short of breath) exercise is sufficient to improve your health. Talk to us before you begin a new exercise program, if you have heart disease or experience shortness of breath or chest pain. REDUCE STRESS Chronic emotional and physical stress leads to disease. Ways of reducing stress include meditation, visualization, prayer, yoga and other forms of relaxation therapy. Consistency is the vidal. Find a technique that works for you and do it every day. CULTIVATE RELATIONSHIPS Loneliness and isolation have a major negative impact on health. Seek out others who can love, care for and nurture you. Avoid hurtful relationships. MAINTAIN IDEAL BODY WEIGHT The best way to do this is to do all the things above. Our bodies naturally find the right weight if we keep moving and feed ourselves the right food. If your BMI is greater than 25, we strongly recommend a referral to a weight management program. Please speak to us or your family physician about available programs. AVOID NICOTINE IN ALL FORMS This includes all tobacco products, whether chewed, smoked, vaped, or rubbed on the skin. Smoking cessation programs, which can make use of tobacco substitutes, medications to suppress cravings and behavior management, are available. Please contact your family physician about programs in your area.Prescriptions ordered this encounter Disp Refills Start End RIVAROXABAN 15 MG TABLET 90 t* 3 08/28/2017 Route: ORAL Sig: Take 1 tablet by mouth daily with dinner.Medications Discontinued During This Encounter rivaroxaban (XARELTO) 15 mg tablet 90 t* 3 01/22/2017 08/28/2017 Route: ORAL Sig: Take 1 tablet by mouth daily with dinner. Disc: Reason for discontinue is not on file. Status:Closed by ELVIS MOROCHO MD on 08/28/17 Normal [facility] PROGRESSon 08-28-2017 Protein HNO ID: [id number] thor: Elvis Graham: (none)Author Type: PhysicianType: Progress NotesFiled: 08/28/2017 4:15 PMNote Text:PERTINENT CARDIAC HISTORYPAFValvular heart disease - moderate MR and TRHTNHLCRFRheumatic feverPulmonary hypertensionADHERENCE TO GUIDELINESACE-I or ARB for HF with prior LVEF<40 (NQF 0081) - N/AASA or Plavix for ASHD (NQF 0067) - N/ABeta guido for ASHD with prior [place] or prior LVEF<40 (NQF 0070) - N/ABeta guido for HF with prior LVEF<40 (NQF 0083) - N/AACE-I or ARB for ASHD with DM or prior LVEF<40 (NQF 0066) - N/AStatin therapy for ASHD or FHL or DM - N/ABMI documented and plan if >25 (NQF 0421) - lifestyle recommendation formTobacco use screening and referral (NQF 0028) - lifestyle recommendationformRecommend ation for whole food, plant based diet - lifestyle recommendationformCLINICAL IMPRESSION/PLAN:Robbin Morse is doing well. She's had no recurrent episodes of atrialfibrillation, although she may be having some silent episodes. She isadequately anticoagulated now and on rate control. I've advised her tocontinue her current medications. If she has breakthrough symptoms again,we will proceed with stress testing and initiation of flecainide, ifstress test is negative. We also discussed the potential benefit ofablation and she would prefer not to go that direction unless she isintolerant to medication or they prove ineffective.She has mild pulmonary hypertension and valvular disease, although thisdoes not appear to be related to rheumatic disease. I personally reviewedher echo pictures today and concur that her LV function is normal.Her volume overload while was probably related to the Actos, although sanjanaikely has a predisposition to diastolic dysfunction.I will see her in 6 months or as needed.Written and verbal health teaching given to patient, patient verbalizesunderstanding and agrees with treatment plan.This note was generated using [employer] Insight recognition system, and theremay be some incorrect words, spellings, and punctuation that were notnoted in checking the note before saving.DIAGNOSIS FOR VISIT:PAFHypertensionMitral valve diseaseHISTORY OF PRESENT ILLNESSRobbin Morse returns for follow-up of her valvular heart disease,hypertension and atrial fibrillation. She is a prior patient of .She reports that her exercise tolerance has been better. She had someedema over when she was placed on Actos, but that has resolved once themedication was discontinued. She's had no orthopnea. She denies syncope,TIAs, amaurosis and claudication. She's had a few brief episodes ofpalpitation but nothing sustained. These tend to occur during emotionalstress. She has increased her activity and is walking at least a few timesa week. She's had no exertional chest tightness.ALLERGIES:ALLERGI ESAllergen Reactions- Actos [Pioglitazone* Swelling dyspnea- Januvia [Sitaglipti* Shortness of Breath chest pain and shortness of breath- Lipitor [Atorvastat* Other: See Comments myalgia- Pravastatin Other: See Comments Leg cramps- Zocor [Simvastatin] IntoleranceCURRENT OUTPATIENT MEDICATIONS:rivaroxaban (XARELTO) 15 mg tablet Take 1 tablet by mouth daily withdinner.estradiol (ESTRACE) 0.01 % (0.1 mg/gram) vaginal cream Apply pea-sizedamount to perineum and 1 applicator vaginally Mon, Wed, Fri for atrophicvaginitis.metoprolo l succinate ER (TOPROL XL) 25 mg 24 hr tablet Take 1 tablet bymouth twice daily.lisinopril (PRINIVIL) 20 mg tablet Take 1 tablet by mouth once daily.metFORMIN (GLUCOPHAGE) 500 mg tablet Take 2 tablets by mouth twice daily.glimepiride (AMARYL) 2 mg tablet Take 1 tablet by mouth daily withbreakfast.Hydrochloroth iazide 12.5 mg capsule Take 1 capsule by mouth once daily.PAST MEDICAL HISTORYDiagnosis Date- Anxiety 06/30/2009- Essential hypertension, benign 11/04/2012- Hyperlipidemia LDL goal < 100 11/04/2012- Type II or unspecified type diabetes mellitus without mention ofcomplication, not stated as uncontrolled 06/30/2009No past surgical history on file.FAMILY HISTORYProblem Relation Age of Onset- GERD [Other] [OTHER] Sister- Diabetes Father- Colon Cancer Mother- congestive heart failure [Other] [OTHER] FatherSocial History Marital status: Spouse name: Years of education: Number of children:Social History Main Topics Smoking status: Never Smoker Smokeless status: Never Used Alcohol use: Yes Comment: occasionalREVIEW OF SYSTEMS: General: No chills, fever, weight loss, night sweats. Respiratory: No productive cough. Cardiac: As noted above. GI: Nomelena. : No dysuria. Musculoskeletal: No myalgias.PHYSICAL EXAMINATION: S/he is alert and in no distress.VITAL SIGNS: BP 112/59 Pulse 70 Wt 159 lb (72.1kg) LMP 10/14/2005SHEENT: Skin is warm and dry. No xanthelasmas appreciated. Pharynx isbenign. There is no oral cyanosis. Neck: supple. No adenopathy orthyroid enlargement. Chest: Clear to percussion and auscultation.Trachea is midline. Air entry is equal. There is no chest walltenderness. Cardiac: Regular rhythm. S1 and S2 are normal. PMI isnondisplaced. There is a 2/6 murmur of tricuspid insufficiency. No clickis heard. Carotids are brisk without bruits. JVP is less than 10 cm.Abdomen: Soft and nontender. There are no pulsatile masses or bruits. Noliver enlargement. Bowel sounds are active. Extremities: Trace edema.Pulses are intact and symmetrical. No clubbing or cyanosis. No femoralbruits. Neurologic: Grossly normal motor and sensory. S/he is alert andoriented x4.Prior chart was reviewed in detail. Echocardiogram showed normal ejectionfraction. There is moderate mitral and tricuspid insufficiency.Prior EKG demonstrated atrial fibrillation with rapid ventricularresponse. There was no significant repolarization abnormality at a highrate.Renal function has gradually worsened over the last year. GFR is less than50. TSH was normal. LDL was 93.Electronically Signed:Elvis Morocho MDGranville [facility] Centerember 2016 3:42 PMCC:Austin Bowers III MD [facility] Vital Signs Date Time Vital Sign Value Performing Clinician Facility 07-29-2025 09:57-0400 Body mass index (BMI) [Ratio] 25.15 kg/m2 Aemrica Mcclure MD Work Phone: [facility] 07-29-2025 09:57-0400 Body weight 60.37 kg America Mcclure MD Work Phone: [facility] 07-29-2025 09:57-0400 Diastolic blood pressure 60 mm[Hg] America Mcclure MD Work Phone: [facility] 07-29-2025 09:57-0400 Heart rate 77 /min America Mcclure MD Work Phone: [facility] 07-29-2025 09:57-0400 Systolic blood pressure 120 mm[Hg] America Mcclure MD Work Phone: [facility] 06-17-2025 13:35-0400 Body height 154.[address] Billy Culp MD Work Phone: 1(050)094-880242 [place] [address] 06-17-2025 13:35-0400 Body mass index (BMI) [Ratio] 24.3 kg/m2 Dr. Billy Culp MD Work Phone: 4(323)436-564366 [address] 06-17-2025 13:35-0400 Body weight 58.[address] Billy Culp MD Work Phone: 1(697)400-403542 [place] [address] 06-17-2025 13:35-0400 Diastolic blood pressure 72 mm[Hg] Dr. Billy Culp MD Work Phone: 8(423)091-562842 [place] [address] 06-17-2025 13:35-0400 Heart rate 77 /min Dr. Billy Culp MD Work Phone: 9(958)894-635942 [place] [address] 06-17-2025 13:35-0400 SaO2% (BldA) [Mass fraction] 96 % Dr. Billy Culp MD Work Phone: 2(173)745-263142 [place] [address] 06-17-2025 13:35-0400 Systolic blood pressure 128 mm[Hg] Dr. Billy Culp MD Work Phone: 5(513)605-041942 [place] [address] 04-06-2025 10:45-0400 Body height 154.9 cm Billy Culp MD Work Phone: [facility] 04-06-2025 10:45-0400 Body mass index (BMI) [Ratio] 23.05 kg/m2 Billy Culp MD Work Phone: [facility] 04-06-2025 10:45-0400 Body weight 55.34 kg Billy Culp MD Work Phone: [facility] 04-06-2025 10:45-0400 Diastolic blood pressure 64 mm[Hg] Billy Culp MD Work Phone: [facility] 04-06-2025 10:45-0400 Heart rate 75 /min Billy Culp MD Work Phone: [facility] 04-06-2025 10:45-0400 Respiratory rate 16 /min Billy Culp MD Work Phone: [facility] 04-06-2025 10:45-0400 SaO2% (BldA) [Mass fraction] 98 % Billy Culp MD Work Phone: [facility] 04-06-2025 10:45-0400 Systolic blood pressure 116 mm[Hg] Billy Culp MD Work Phone: [facility] 02-25-2025 09:38-0400 Body mass index (BMI) [Ratio] 23.79 kg/m2 America Mcclure MD Work Phone: [facility] 02-25-2025 09:38-0400 Body weight 57.11 kg America Mcclure MD Work Phone: [facility] 02-25-2025 09:38-0400 Diastolic blood pressure 60 mm[Hg] America Mcclure MD Work Phone: [facility] 02-25-2025 09:38-0400 Heart rate 88 /min America Mcclure MD Work Phone: [facility] 02-25-2025 09:38-0400 SaO2% (BldA) [Mass fraction] 98 % America Mcclure MD Work Phone: [facility] 02-25-2025 09:38-0400 Systolic blood pressure 120 mm[Hg] America Mcclure MD Work Phone: [facility] 11-09-2024 15:25-0500 Body mass index (BMI) [Ratio] 24.08 kg/m2 Ryan Kidd MD Work Phone: [facility] 11-09-2024 15:25-0500 Body temperature 98.29 [degF] Ryan Kidd MD Work Phone: [facility] 11-09-2024 15:25-0500 Body weight 57.8 kg Ryan Kidd MD Work Phone: [facility] 11-09-2024 15:25-0500 Diastolic blood pressure 68 mm[Hg] Ryan Kidd MD Work Phone: [facility] 11-09-2024 15:25-0500 Heart rate 77 /min Ryan Kidd MD Work Phone: [facility] 11-09-2024 15:25-0500 Respiratory rate 18 /min Ryan Kidd MD Work Phone: [facility] 11-09-2024 15:25-0500 SaO2% (BldA) [Mass fraction] 100 % Ryan Kidd MD Work Phone: [facility] 11-09-2024 15:25-0500 Systolic blood pressure 132 mm[Hg] Ryan Kidd MD Work Phone: [facility] 10-05-2024 10:37-0500 Body mass index (BMI) [Ratio] 23.24 kg/m2 Suzie Lechuga PA-C Work Phone: [facility] 10-05-2024 10:37-0500 Body temperature 97.39 [degF] Suzie Lechuga PA-C Work Phone: [facility] 10-05-2024 10:37-0500 Body weight 55.79 kg Suzie Lechuga PA-C Work Phone: [facility] 10-05-2024 10:37-0500 Diastolic blood pressure 60 mm[Hg] Suzie Lechuga PA-C Work Phone: [facility] 10-05-2024 10:37-0500 Heart rate 81 /min Suzie Lechuga PA-C Work Phone: [facility] 10-05-2024 10:37-0500 Respiratory rate 14 /min Suzie Lechuga PA-C Work Phone: [facility] 10-05-2024 10:37-0500 SaO2% (BldA) [Mass fraction] 99 % Suzie Lechuga PA-C Work Phone: [facility] 10-05-2024 10:37-0500 Systolic blood pressure 102 mm[Hg] Suzie Lechuga PA-C Work Phone: [facility] 08-04-2024 11:27-0400 Body mass index (BMI) [Ratio] 23.24 kg/m2 Billy Culp MD Work Phone: [facility] 08-04-2024 11:27-0400 Body weight 55.79 kg Billy Culp MD Work Phone: [facility] 08-04-2024 11:27-0400 Diastolic blood pressure 52 mm[Hg] Billy Culp MD Work Phone: [facility] 08-04-2024 11:27-0400 Heart rate 74 /min Billy Culp MD Work Phone: [facility] 08-04-2024 11:27-0400 Respiratory rate 16 /min Billy Culp MD Work Phone: [facility] 08-04-2024 11:27-0400 Systolic blood pressure 114 mm[Hg] Billy Culp MD Work Phone: [facility] 06-10-2024 09:43-0400 Body mass index (BMI) [Ratio] 24 kg/m2 Billy Culp MD Work Phone: [facility] 06-10-2024 09:43-0400 Body weight 57.61 kg Billy Culp MD Work Phone: [facility] 06-10-2024 09:43-0400 Diastolic blood pressure 70 mm[Hg] Billy Culp MD Work Phone: [facility] 06-10-2024 09:43-0400 Heart rate 72 /min Billy Culp MD Work Phone: [facility] 06-10-2024 09:43-0400 Respiratory rate 16 /min Billy Culp MD Work Phone: [facility] 06-10-2024 09:43-0400 Systolic blood pressure 120 mm[Hg] Billy Culp MD Work Phone: [facility] 04-03-2024 14:35-0400 Body height 154.9 cm Billy Culp MD Work Phone: [facility] 04-03-2024 14:35-0400 Body mass index (BMI) [Ratio] 26.64 kg/m2 Billy Culp MD Work Phone: [facility] 04-03-2024 14:35-0400 Body weight 63.96 kg Billy Culp MD Work Phone: [facility] 04-03-2024 14:35-0400 Diastolic blood pressure 72 mm[Hg] Billy Culp MD Work Phone: [facility] 04-03-2024 14:35-0400 Heart rate 72 /min Billy Culp MD Work Phone: [facility] 04-03-2024 14:35-0400 Respiratory rate 16 /min Billy Culp MD Work Phone: [facility] 04-03-2024 14:35-0400 Systolic blood pressure 124 mm[Hg] Billy Culp MD Work Phone: [facility] 02-13-2024 10:18-0400 Body height 154.9 cm America Mcclure MD Work Phone: [facility] 02-13-2024 10:18-0400 Body mass index (BMI) [Ratio] 25.13 kg/m2 America Mcclure MD Work Phone: [facility] 02-13-2024 10:18-0400 Body weight 60.33 kg America Mcclure MD Work Phone: [facility] 02-13-2024 10:18-0400 Diastolic blood pressure 84 mm[Hg] America Mcclure MD Work Phone: [facility] 02-13-2024 10:18-0400 Heart rate 94 /min America Mcclure MD Work Phone: [facility] 02-13-2024 10:18-0400 SaO2% (BldA) [Mass fraction] 95 % America Mcclure MD Work Phone: [facility] 02-13-2024 10:18-0400 Systolic blood pressure 132 mm[Hg] America Mcclure MD Work Phone: [facility] 02-11-2024 10:07-0400 Body height 154.[address] Billy Culp Work Phone: [facility] 02-11-2024 10:07-0400 Body mass index (BMI) [Ratio] 25.3 kg/m2 Dr. Billy Culp Work Phone: [facility] 02-11-2024 10:07-0400 Body weight 60.[address] Billy Culp Work Phone: [facility] 02-11-2024 10:07-0400 Diastolic blood pressure 62 mm[Hg] Dr. Billy Culp Work Phone: [facility] 02-11-2024 10:07-0400 Heart rate 67 /min Dr. Billy Culp Work Phone: [facility] 02-11-2024 10:07-0400 Respiratory rate 16 /min Dr. Billy Culp Work Phone: 4(025)126-626842 [place] [address] 02-11-2024 10:07-0400 Systolic blood pressure 116 mm[Hg] Dr. Billy Culp Work Phone: 7(929)528-447542 [place] [address] 02-11-2024 08:36-0400 Body mass index (BMI) [Ratio] 25.7 kg/m2 Dr. Billy Culp Work Phone: 1(336)217-190342 [place] [address] 02-11-2024 08:36-0400 Body weight 61.[address] Billy Culp Work Phone: 3(672)147-942495 [place] [address] 02-11-2024 08:36-0400 Diastolic blood pressure 68 mm[Hg] Dr. Billy Culp Work Phone: 3(287)598-485495 [place] [address] 02-11-2024 08:36-0400 Heart rate 75 /min Dr. Billy Culp Work Phone: 1(006)091-906395 [place] [address] 02-11-2024 08:36-0400 SaO2% (BldA) [Mass fraction] 95 % Dr. Billy Culp Work Phone: 7(775)368-678742 [place] [address] 02-11-2024 08:36-0400 Systolic blood pressure 121 mm[Hg] Dr. Billy Culp Work Phone: 6(932)648-948642 [place] [address] 01-02-2024 08:00-0500 Body temperature 97 [degF] Dr. Billy Culp Work Phone: 7(594)205-600242 [place] [address] 01-02-2024 08:00-0500 Diastolic blood pressure 48 mm[Hg] Dr. Billy Culp Work Phone: 8(596)085-579442 [place] [address] 01-02-2024 08:00-0500 Heart rate 67 /min Dr. Billy Culp Work Phone: [facility] 01-02-2024 08:00-0500 Respiratory rate 16 /min Dr. Billy Culp Work Phone: 9(171)986-129942 [place] [address] 01-02-2024 08:00-0500 SaO2% (BldA) [Mass fraction] 98 % Dr. Billy Culp Work Phone: [facility] 01-02-2024 08:00-0500 Systolic blood pressure 95 mm[Hg] Dr. Billy Culp Work Phone: 3(092)097-139695 [place] [address] 01-02-2024 06:48-0500 Body height 154.[address] Billy Culp Work Phone: 1(331)198-144295 [place] [address] 01-02-2024 06:48-0500 Body mass index (BMI) [Ratio] 25.8 kg/m2 Dr. Billy Culp Work Phone: 6(823)795-711766 [address] 01-02-2024 06:48-0500 Body weight [address] Billy Culp Work Phone: 6(060)647-344595 [place] [address] 10-07-2023 09:59-0500 Body mass index (BMI) [Ratio] 24.9 kg/m2 Dr. Billy Culp Work Phone: 7(039)343-661495 [place] [address] 10-07-2023 09:59-0500 Body weight 59.[address] Billy Culp Work Phone: 4(608)910-973995 [place] [address] 10-07-2023 09:59-0500 Diastolic blood pressure 70 mm[Hg] Dr. Billy Culp Work Phone: 6(264)690-626195 [place] [address] 10-07-2023 09:59-0500 Heart rate 78 /min Dr. Billy Culp Work Phone: 0(601)673-380495 [place] [address] 10-07-2023 09:59-0500 SaO2% (BldA) [Mass fraction] 99 % Dr. Billy Culp Work Phone: 0(746)732-577966 [address] 10-07-2023 09:59-0500 Systolic blood pressure 130 mm[Hg] Dr. Billy Culp Work Phone: 0(786)947-991366 [address] 06-20-2023 10:25-0400 Body height 154.9 cm America Mcclure MD Work Phone: [facility] 06-20-2023 10:25-0400 Body mass index (BMI) [Ratio] 25.34 kg/m2 America Mcclure MD Work Phone: [facility] 06-20-2023 10:25-0400 Body weight 60.83 kg America Mcclure MD Work Phone: [facility] 06-20-2023 10:25-0400 Diastolic blood pressure 60 mm[Hg] America Mcclure MD Work Phone: [facility] 06-20-2023 10:25-0400 Heart rate 76 /min America Mcclure MD Work Phone: [facility] 06-20-2023 10:25-0400 Respiratory rate 18 /min America Mcclure MD Work Phone: [facility] 06-20-2023 10:25-0400 SaO2% (BldA) [Mass fraction] 98 % America Mcclure MD Work Phone: [facility] 06-20-2023 10:25-0400 Systolic blood pressure 130 mm[Hg] America Mcclure MD Work Phone: [facility] 09-26-2022 10:39-0500 Body weight 59.42 kg Billy Culp MD Work Phone: [facility] 09-26-2022 10:39-0500 Diastolic blood pressure 72 mm[Hg] Billy Culp MD Work Phone: [facility] 09-26-2022 10:39-0500 Heart rate 80 /min Billy Culp MD Work Phone: [facility] 09-26-2022 10:39-0500 Respiratory rate 16 /min Billy Culp MD Work Phone: [facility] 09-26-2022 10:39-0500 Systolic blood pressure 124 mm[Hg] Billy Culp MD Work Phone: [facility] 09-10-2022 08:15-0500 Body temperature 98 [degF] Dr. Billy Culp Work Phone: 5(557)576-834769 [place] [address] 09-10-2022 08:15-0500 Diastolic blood pressure 58 mm[Hg] Dr. Billy Culp Work Phone: 9(436)412-210495 [place] [address] 09-10-2022 08:15-0500 Heart rate 77 /min Dr. Billy Culp Work Phone: 8(626)471-250795 [place] [address] 09-10-2022 08:15-0500 Respiratory rate 18 /min Dr. Billy Culp Work Phone: 2(299)228-735695 [place] [address] 09-10-2022 08:15-0500 SaO2% (BldA) [Mass fraction] 100 % Dr. Billy Culp Work Phone: 1(059)335-381895 [place] [address] 09-10-2022 08:15-0500 Systolic blood pressure 103 mm[Hg] Dr. Billy Culp Work Phone: 1(416)351-573595 [place] [address] 09-10-2022 07:21-0500 Body height 154.[address] Billy Culp Work Phone: 3(766)010-884395 [place] [address] 09-10-2022 07:21-0500 Body mass index (BMI) [Ratio] 25.7 kg/m2 Dr. Billy Culp Work Phone: 7(723)817-066295 [place] [address] 09-10-2022 07:21-0500 Body weight 61.[address] Billy Culp Work Phone: 0(238)407-645195 [place] [address] 06-22-2022 08:04-0400 Body mass index (BMI) [Ratio] 26 kg/m2 Dr. Billy Culp Work Phone: 9(297)776-577142 [place] [address] Work Phone: 06-22-2022 08:04-0400 Body weight 62.[address] Billy Culp Work Phone: [phone] [place] [address] Work Phone: 05-29-2022 07:40-0400 Body temperature 97.4 [degF] Dr. Billy Culp Work Phone: [phone] [place] [address] Work Phone: 05-29-2022 07:40-0400 Diastolic blood pressure 61 mm[Hg] Dr. Billy Culp Work Phone: [facility] Work Phone: 05-29-2022 07:40-0400 Heart rate 75 /min Dr. Billy Culp Work Phone: [facility] Work Phone: 05-29-2022 07:40-0400 Respiratory rate 16 /min Dr. Billy Culp Work Phone: [facility] Work Phone: 05-29-2022 07:40-0400 SaO2% (BldA) [Mass fraction] 100 % Dr. Billy Culp Work Phone: [facility] Work Phone: 05-29-2022 07:40-0400 Systolic blood pressure 104 mm[Hg] Dr. Billy Culp Work Phone: [facility] Work Phone: 05-29-2022 06:41-0400 Body height 154.[address] Billy Culp Work Phone: [facility] Work Phone: 05-29-2022 06:41-0400 Body mass index (BMI) [Ratio] 25.8 kg/m2 Dr. Billy Culp Work Phone: [facility] Work Phone: 05-29-2022 06:41-0400 Body weight [address] Billy Culp Work Phone: [facility] Work Phone: 05-02-2022 09:47-0400 Body temperature 97.59 [degF] Emili Cano LAB SUPPORT TECHNICIAN.ELECTRICAL PRODUCTS ENGINEER Work Phone: [facility] 05-02-2022 09:47-0400 Body weight 60.96 kg Emili Cano APRN.ELECTRICAL PRODUCTS ENGINEER Work Phone: [facility] 05-02-2022 09:47-0400 Diastolic blood pressure 72 mm[Hg] Emili Cano LAB SUPPORT TECHNICIAN.ELECTRICAL PRODUCTS ENGINEER Work Phone: [facility] 05-02-2022 09:47-0400 Heart rate 78 /min Emili Cano LAB SUPPORT TECHNICIAN.ELECTRICAL PRODUCTS ENGINEER Work Phone: [facility] 05-02-2022 09:47-0400 Respiratory rate 18 /min Emili Cano LAB SUPPORT TECHNICIAN.ELECTRICAL PRODUCTS ENGINEER Work Phone: [facility] 05-02-2022 09:47-0400 SaO2% (BldA) [Mass fraction] 100 % Emili Cano LAB SUPPORT TECHNICIAN.ELECTRICAL PRODUCTS ENGINEER Work Phone: [facility] 05-02-2022 09:47-0400 Systolic blood pressure 136 mm[Hg] Emili Cano LAB SUPPORT TECHNICIAN.ELECTRICAL PRODUCTS ENGINEER Work Phone: [facility] 04-06-2022 14:20-0400 Body height 154.[address] Billy Culp Work Phone: [facility] Work Phone: 04-06-2022 14:20-0400 Body mass index (BMI) [Ratio] 25.7 kg/m2 Dr. Billy Culp Work Phone: [facility] Work Phone: 04-06-2022 14:20-0400 Body weight 61.[address] Billy Culp Work Phone: [facility] Work Phone: 04-06-2022 14:20-0400 Diastolic blood pressure 62 mm[Hg] Dr. Billy Culp Work Phone: [facility] Work Phone: 04-06-2022 14:20-0400 Heart rate 76 /min Dr. Billy Culp Work Phone: [facility] Work Phone: 04-06-2022 14:20-0400 SaO2% (BldA) [Mass fraction] 99 % Dr. Billy Culp Work Phone: [facility] Work Phone: 04-06-2022 14:20-0400 Systolic blood pressure 115 mm[Hg] Dr. Billy Culp Work Phone: [facility] Work Phone: 03-08-2022 11:07-0400 Body height 155.6 cm Billy Culp MD Work Phone: [facility] 03-08-2022 11:07-0400 Body weight 60.33 kg Billy Culp MD Work Phone: [facility] 03-08-2022 11:07-0400 Diastolic blood pressure 68 mm[Hg] Billy Culp MD Work Phone: [facility] 03-08-2022 11:07-0400 Heart rate 72 /min Billy Culp MD Work Phone: [facility] 03-08-2022 11:07-0400 Respiratory rate 16 /min Billy Culp MD Work Phone: [facility] 03-08-2022 11:07-0400 Systolic blood pressure 112 mm[Hg] Billy Culp MD Work Phone: [facility] 03-01-2022 09:50-0400 Body temperature 97 [degF] Dr. Billy Culp Work Phone: [facility] Work Phone: 03-01-2022 09:50-0400 Diastolic blood pressure 48 mm[Hg] Dr. Billy Culp Work Phone: [facility] Work Phone: 03-01-2022 09:50-0400 Heart rate 67 /min Dr. Billy Culp Work Phone: [facility] Work Phone: 03-01-2022 09:50-0400 Respiratory rate 16 /min Dr. Billy Culp Work Phone: [facility] Work Phone: 03-01-2022 09:50-0400 SaO2% (BldA) [Mass fraction] 100 % Dr. Billy Culp Work Phone: [facility] Work Phone: 03-01-2022 09:50-0400 Systolic blood pressure 124 mm[Hg] Dr. Billy Culp Work Phone: [facility] Work Phone: 03-01-2022 08:35-0400 Body height 154.[address] Billy Culp Work Phone: [facility] Work Phone: 03-01-2022 08:35-0400 Body mass index (BMI) [Ratio] 25 kg/m2 Dr. Billy Culp Work Phone: [facility] Work Phone: 03-01-2022 08:35-0400 Body weight [address] Billy Culp Work Phone: [facility] Work Phone: 12-13-2021 06:15-0500 Diastolic blood pressure 53 mm[Hg] Dr. Billy Culp Work Phone: [facility] Work Phone: 12-13-2021 06:15-0500 Heart rate 72 /min Dr. Billy Culp Work Phone: [facility] Work Phone: 12-13-2021 06:15-0500 Respiratory rate 16 /min Dr. Billy Culp Work Phone: [facility] Work Phone: 12-13-2021 06:15-0500 SaO2% (BldA) [Mass fraction] 100 % Dr. Billy Culp Work Phone: [facility] Work Phone: 12-13-2021 06:15-0500 Systolic blood pressure 126 mm[Hg] Dr. Billy Culp Work Phone: [facility] Work Phone: 12-13-2021 05:58-0500 Body temperature 97.3 [degF] Dr. Billy Culp Work Phone: [facility] Work Phone: 12-13-2021 05:00-0500 Body height 154.[address] Billy Culp Work Phone: [facility] Work Phone: 12-13-2021 05:00-0500 Body mass index (BMI) [Ratio] 25 kg/m2 Dr. Billy Culp Work Phone: [facility] Work Phone: 12-13-2021 05:00-0500 Body weight [address] Billy Culp Work Phone: [facility] Work Phone: 10-25-2021 13:48-0500 Body mass index (BMI) [Ratio] 25.9 kg/m2 Dr. Billy Culp Work Phone: [facility] Work Phone: 10-25-2021 13:48-0500 Body weight 62.[address] Billy Culp Work Phone: [facility] Work Phone: 10-25-2021 13:48-0500 Diastolic blood pressure 73 mm[Hg] Dr. Billy Culp Work Phone: [facility] Work Phone: 10-25-2021 13:48-0500 Heart rate 78 /min Dr. Billy Culp Work Phone: [facility] Work Phone: 10-25-2021 13:48-0500 Respiratory rate 18 /min Dr. Billy Culp Work Phone: [facility] Work Phone: 10-25-2021 13:48-0500 SaO2% (BldA) [Mass fraction] 10 % Dr. Billy Culp Work Phone: [facility] Work Phone: 10-25-2021 13:48-0500 Systolic blood pressure 142 mm[Hg] Dr. Billy Culp Work Phone: [facility] Work Phone: Encounters Encounter Date Encounter Type Care Provider Facility Start: 09-06-2025 ambulatory AMERICA MCCLURE Facilit y:[facility] Start: 08-07-2025 ambulatory Billy Culp Facility :[facility] Start: 08-06-2025 End: 08-06-2025 ambulatory AMERICA MCCLURE Facility:[facility] Start: 07-29-2025 End: 07-29-2025 Office outpatient visit 40 minutes America Mcclure MD Work Phone: [facility] Comment on above: Cirrhosis of liver w ith ascites, unspecified hepatic cirrhosis type (Primary Dx); CKD stage 3b, GFR 30-44 ml/min; Generalized abdominal pain Start: 07-29-2025 ambulatory SELF SELF Facility:[facility] Start: 06-17-2025 End: 06-17-2025 Chart abstracting Billy Culp MD Work Phone: Family [facility] Comment on above: Outside Luds-Kti-BTZ Ordered Start: 06-17-2025 End: 06-17-[address] Stanley Garcia MD -[facility] Work Phone: Start: 06-17-2025 End: 06-17-[address] Billy Culp MD Work Phone: -[facility] Start: 06-17-2025 End: 06-17-[address] Billy Culp MD Work Phone: -Laboratory Start: 06-17-2025 End: 06-17-[address] Stanley Garcia MD -Laboratory Work Phone: Start: 06-17-2025 End: 06-17-2025 ambulatory Stanley Garcia Facility:[facility] Start: 06-08-2025 End: 06-08-2025 Chart abstracting Billy Culp MD Work Phone: [facility] Comment on above: Outside Hvfj-Hxz-TSB Ordered Start: 06-08-2025 End: 06-08-[address] Billy Culp MD Work Phone: -Laboratory Start: 06-08-2025 End: 06-08-[address] 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 type 2 diabetes mellitus (HCC); Diabetic eye exam (HCC); Essential hypertension, benign; Hyperlipidemia, mixed; Hypothyroidism, acquired; Bilateral leg edema; Iron deficiency anemia due to chronic blood loss; Anemia due to other cause, not classified; Paroxysmal atrial fibrillation (HCC); Stage 3b chronic kidney disease (HCC); Leukopenia, unspecified type; Pulmonary hypertension (HCC); Thrombocytopenia; Vitamin B12 deficiency; Cirrhosis, nonalcoholic (HCC); SANCHEZ (nonalcoholic steatohepatitis); Secondary esophageal varices without bleeding (HCC); Eustachian tube dysfunction, left; Advance directive discussed with patient; Screening for depression; Encounter for screening examination for other mental health and behavioral disorders Start: 04-06-2025 End: 04-06-2025 ambulatory BILLY CUPL Facility:[facility] Start: 03-31-2025 End: 03-31-2025 ambulatory SUZIE LECHUGA Facility:[facility] Start: 03-04-2025 End: 03-04-2025 Refill Suzie Lechuga PA-C Work Phone: [facility] Comment on above: Refill Request Start: 03-03-2025 End: 03-03-2025 Chart abstracting Billy Culp MD Work Phone: [facility] Comment on above: Outside Diabetic Eye Exam Start: 03-03-2025 End: 03-03-2025 Ophthalmic examination and evaluation Billy Culp MD Work Phone: [facility] Start: 02-25-2025 End: 02-25-2025 Office outpatient visit 25 minutes America Mcclure MD Work Phone: [facility] Comment on above: Cirrhosis of liver w ithout ascites, unspecified hepatic cirrhosis type (Primary Dx) Start: 02-25-2025 ambulatory SELF SELF Facility:[facility] Start: 02-16-2025 End: 02-16-2025 Chart abstracting Maria Luz Dejesus MA [facility] [place] Comment on above: Consult (Outside GI consult /) Start: 02-09-2025 End: 02-09-2025 ambulatory Billy Culp [place] Start: 02-09-2025 End: 02-09-2025 Chart abstracting Maria Luz Dejesus MA [facility] [place] Comment on above: Consult (Cardiology /) Start: 02-08-2025 End: 02-08-2025 ambulatory Sg Gonzalez [place] Start: 02-04-2025 End: 02-04-2025 Refill Suzie Lechuga PA-C Work Phone: [facility] [place] Comment on above: Refill Request Start: 02-03-2025 End: 02-03-2025 Chart abstracting Maria Luz Dejesus MA [facility] [place] Comment on above: Results (Outside fac ility labs/US ) Start: 02-01-2025 End: 02-01-2025 Follow-up encounter Teri Orosco APRN.CNP Work Phone: [facility] Start: 01-29-2025 End: 01-29-2025 ambulatory SUZIE LECHUGA Facility:[facility] Start: 01-29-2025 End: 01-29-[address] Billy Culp MD Work Phone: [facility] Work Phone: Start: 01-29-2025 End: 01-29-[address] Stanley Garcia MD -Ultrasound, [facility] Work Phone: Start: 01-29-2025 End: 01-29-2025 ambulatory Stanley Garcia Facility:[facility] Start: 01-14-2025 End: 01-14-2025 ambulatory Eun Hoyos MA [facility] Start: 01-14-2025 End: 01-14-2025 Patient encounter procedure Eun Hoyos MA [facility] Comment on above: Population Health Na vigation Outreach ( [facility] ) Start: 11-10-2024 End: 11-11-2024 Refill Suzie Lechuga PA-C Work Phone: [facility] Comment on above: Refill Request Start: 11-09-2024 End: 11-09-2024 Office outpatient visit 15 minutes Ryan Kidd MD Work Phone: [facility] Comment on above: Nondisplaced fractur e of fifth metatarsal bone, right foot, initial encounter for closed fracture (Primary Dx); Foot pain, right Start: 11-09-2024 End: 11-09-2024 ambulatory BILLY CULP Facility:[facility] Start: 11-09-2024 End: 11-09-2024 Subsequent hospital visit by physician [facility] Work Phone: Radiology Comment on above: Foot pain, right [M7 9.671] Start: 10-06-2024 End: 10-06-2024 Telephone encounter Suzie Lechuga PA-C Work Phone: [facility] Comment on above: Results Start: 10-05-2024 End: 10-05-2024 ambulatory SUZIE LECHUGA Facility:[facility] Start: 10-05-2024 End: 10-05-2024 Office outpatient visit 25 minutes Suzie Lechuga PA-C Work Phone: [facility] Comment on above: Type 2 diabetes nessa itus with stage 3b chronic kidney disease, without long-term current use of insulin (HCC) (Primary Dx); Essential hypertension, benign; Hyperlipidemia, mixed; Hypothyroidism, acquired; Hypercalcemia; Paroxysmal atrial fibrillation (HCC); Pulmonary hypertension (HCC); Cirrhosis, nonalcoholic (HCC); Secondary esophageal varices without bleeding (HCC); Stage 3b chronic kidney disease (HCC); Thrombocytopenia (HCC); Medication management; Vitamin B12 deficiency; Iron deficiency anemia due to chronic blood loss Start: 09-30-2024 End: 09-30-2024 ambulatory BILLY CULP Facility:[facility] Start: 09-16-2024 End: 09-16-2024 Refill Billy Culp MD Work Phone: [facility] Comment on above: Refill Request Start: 08-25-2024 End: 08-25-2024 Chart abstracting Billy Culp MD Work Phone: [facility] Comment on above: Outside Echo Start: 08-19-2024 End: 08-19-2024 Chart abstracting Billy Culp MD Work Phone: [facility] Comment on above: Outside Yyon-Phf-LNL Ordered Start: 08-13-2024 End: 08-13-2024 Patient Outreach Irma Clay RN Work Phone: [facility] Comment on above: Initial phone contac t for Transitional Care Management Start: 08-12-2024 End: 08-12-2024 Chart abstracting Billy Culp MD Work Phone: [facility] Comment on above: Outside Eydb-Ghi-UTA Ordered Start: 08-04-2024 End: 08-04-2024 Patient encounter procedure Billy Culp MD Work Phone: [facility] Comment on above: Anitra-Jackson tear ( Primary Dx); Anemia, unspecified type; Persistent dry cough Start: 07-29-2024 End: 08-03-2024 ambulatory Billy Culp MD Work Phone: [facility] Start: 07-23-2024 End: 07-23-2024 Chart abstracting Billy Culp MD Work Phone: [facility] Start: 07-22-2024 End: 07-23-2024 Get Medical Advice Billy Culp MD Work Phone: [facility] Comment on above: Lab orders for hemog lobin levels Cancel appt / place lab orders Start: 07-21-2024 End: 07-21-2024 Chart abstracting Maria Luz Dejesus MA [facility] [place] Comment on above: Hospital F/U ([facility] ) Start: 07-20-2024 End: 07-20-2024 Chart abstracting Billy Culp MD Work Phone: [facility] Comment on above: ER Discharge Summary (H&P) Start: 07-03-2024 End: 07-03-2024 Refill Billy Culp MD Work Phone: [facility] Comment on above: Refill Request Start: 06-10-2024 End: 06-10-2024 Patient encounter procedure Billy Culp MD Work Phone: [facility] Comment on above: Hypothyroidism, acqu ired (Primary Dx); Bilateral leg edema Start: 05-05-2024 Chart abstracting Billy dangelo MD Work Phone: [facility] Comment on above: Outside Nkhk-Fkc-XZO Ordered Start: 04-03-2024 End: 04-03-2024 Ophthalmic examination and evaluation Billy Culp MD Work Phone: [facility] Start: 04-03-2024 End: 04-03-2024 Patient encounter procedure Billy Culp MD Work Phone: [facility] Comment on above: Encounter for Medica re annual wellness exam (Primary Dx); Type 2 diabetes mellitus with stage 3b chronic kidney disease, without long-term current use of insulin (HCC); Essential hypertension, benign; Hyperlipidemia, mixed; Diabetic eye exam (HCC); Paroxysmal atrial fibrillation (HCC); Iron deficiency anemia due to chronic blood loss; Stage 3b chronic kidney disease (HCC); Pulmonary hypertension (HCC); Thrombocytopenia (HCC); Leukopenia, unspecified type; Vitamin B12 deficiency; SANCHEZ (nonalcoholic steatohepatitis); Cirrhosis, nonalcoholic (HCC); Secondary esophageal varices with bleeding (HCC); Advance directive discussed with patient; Anemia due to other cause, not classified; Hypothyroidism, acquired; Mild protein-calorie malnutrition (HCC); Bilateral leg edema Start: 03-22-2024 Get Medical Advice Billy Culp MD Work Phone: [facility] Comment on above: Lab orders Start: 02-20-2024 Chart abstracting Billy dangelo MD Work Phone: [facility] Comment on above: Ext / Labs Start: 02-19-2024 End: 02-19-[address] Billy Culp Work Phone: [facility] Work Phone: Start: 02-19-2024 End: 02-19-[address] Billy Culp Work Phone: [facility]Labor[facility] Work Phone: Start: 02-13-2024 End: 02-13-2024 Office outpatient visit 15 minutes America Mcclure MD Work Phone: [facility] Comment on above: Cirrhosis of liver w ithout ascites, unspecified hepatic cirrhosis type (Primary Dx) Start: 02-11-2024 Chart abstracting Billy dangelo MD Work Phone: [facility] Comment on above: Ext / [facility] Start: 02-11-2024 End: 02-11-[address] Billy Culp Work Phone: [facility] Work Phone: Start: 02-11-2024 End: 02-11-[address] Billy Culp Work Phone: [facility] Work Phone: Start: 02-06-2024 Chart abstracting Billy dangelo MD Work Phone: [facility] Start: 02-05-2024 Chart abstracting Maria Luz Dejesus MA [facility] Comment on above: Results, Lab Start: 02-04-2024 Chart abstracting Billy dangelo MD Work Phone: [facility] Comment on above: External / MRI Start: 02-03-2024 End: 02-03-[address] Billy Culp Work Phone: [facility] Work Phone: Start: 02-03-2024 End: 02-03-[address] Billy Culp Work Phone: [facility] Work Phone: Start: 01-02-2024 Chart abstracting Billy dangelo MD Work Phone: [facility] Comment on above: outside H+P Start: 01-02-2024 Non-patient / Non-visit Dr. Billy Culp Work Phone: [facility] Start: 01-02-2024 End: 01-02-2024 Admission to same day surgery center Dr. Billy Culp Work Phone: [facility] Work Phone: Start: 01-02-2024 End: 01-02-[address] Billy Culp Work Phone: [facility] Work Phone: Start: 12-16-2023 Refill Billy quintero MD Work Phone: [facility] Comment on above: Refill Request Start: 10-07-2023 End: 10-07-[address] Billy Culp Work Phone: [facility] Work Phone: Start: 09-16-2023 Chart abstracting Billy dangelo MD Work Phone: [facility] Comment on above: ext document (labs) Start: 09-14-2023 End: 09-14-[address] Billy Culp Work Phone: [facility] Work Phone: Start: 09-14-2023 End: 09-14-[address] Billy Culp Work Phone: [facility] Work Phone: Start: 09-05-2023 Chart abstracting Billy dangelo MD Work Phone: [facility] Start: 09-04-2023 End: 09-04-[address] Billy Culp Work Phone: [facility] Work Phone: Start: 09-04-2023 End: 09-04-[address] Billy Culp Work Phone: [facility] Work Phone: Start: 08-28-2023 ambulatory Billy quintero MD Work Phone: Internal Medicine [facility] Start: 07-31-2023 Ophthalmic examinati on and evaluation Billy Culp MD Work Phone: [facility] Start: 07-22-2023 Refill Billy quintero MD Work Phone: [facility] Comment on above: Refill Request Start: 06-20-2023 End: 06-20-2023 Office outpatient visit 25 minutes America Mcclure MD Work Phone: [facility] Comment on above: Cirrhosis of liver w ithout ascites, unspecified hepatic cirrhosis type (Primary Dx) Start: 06-05-2023 Chart abstracting Billy dangelo MD Work Phone: [facility] Comment on above: Results Start: 06-04-2023 End: 06-04-[address] Billy Culp Work Phone: [facility] Work Phone: Start: 05-28-2023 Telephone encounter Billy Culp MD Work Phone: [facility] Comment on above: Results Start: 05-24-2023 End: 05-24-2023 ambulatory [facility] Work Phone: Start: 05-24-2023 End: 05-24-2023 Patient encounter procedure [facility] Work Phone: Start: 04-24-2023 Get Medical Advice Billy Culp MD Work Phone: [facility] Comment on above: KLOR-CON refill not available Start: 04-20-2023 Refill Billy quintero MD Work Phone: [facility] Comment on above: Refill Request Start: 04-03-2023 Patient encounter procedure Billy Culp MD Work Phone: [facility] Work Phone: Start: 03-26-2023 Get Medical Advice Billy Culp MD Work Phone: [facility] Comment on above: Lab orders Start: 01-03-2023 Chart abstracting Billy dangelo MD Work Phone: [facility] Comment on above: outside report Start: 12-05-2022 Chart abstracting Billy dangelo MD Work Phone: [facility] Comment on above: XRay Report Start: 11-26-2022 Refill Suzie Waggoner on PA-C Work Phone: [facility] Comment on above: Refill Request Start: 11-22-2022 End: 11-22-[address] Billy Culp Work Phone: [facility] Start: 11-19-2022 End: 11-19-[address] Billy Culp Work Phone: [facility] Work Phone: Start: 11-19-2022 End: 11-19-[address] Billy Culp Work Phone: [facility] Start: 11-01-2022 End: 11-01-[address] Billy Culp Work Phone: [facility] Start: 10-25-2022 End: 10-25-[address] Billy Culp Work Phone: [facility] Start: 09-27-2022 Telephone encounter Billy Culp MD Work Phone: [facility] Comment on above: Results Start: 09-26-2022 End: 09-26-2022 Ophthalmic examination and evaluation Billy Culp MD Work Phone: [facility] Start: 09-26-2022 End: 09-26-2022 Patient encounter procedure Billy Culp MD Work Phone: [facility] Comment on above: Type 2 diabetes nessa itus with stage 3b chronic kidney disease, without long-term current use of insulin (HCC) (Primary Dx); Diabetes mellitus type 2 (HCC); Diabetic eye exam (HCC); Essential hypertension, benign; Hyperlipidemia, mixed; Paroxysmal atrial fibrillation (HCC); Pulmonary hypertension (HCC); Stage 3b chronic kidney disease (HCC); Iron deficiency anemia due to chronic blood loss; Vitamin B12 deficiency; Secondary esophageal varices with bleeding (HCC); SANCHEZ (nonalcoholic steatohepatitis); Cirrhosis, nonalcoholic (HCC); Thrombocytopenia (HCC); Kidney stone Start: 09-25-2022 End: 09-25-[address] Billy Culp Work Phone: [facility] Start: 09-19-2022 ambulatory Billy quintero MD Work Phone: [facility] [place] Start: 09-18-2022 End: 09-18-[address] Billy Culp Work Phone: [facility] Work Phone: Start: 09-18-2022 End: 09-18-[address] Billy Culp Work Phone: [facility] Start: 09-10-2022 Chart abstracting Billy dangelo MD Work Phone: [facility] Comment on above: outside EGD Start: 09-10-2022 Non-patient / Non-visit Dr. Billy Culp Work Phone: [facility] Start: 09-10-2022 End: 09-10-2022 Admission to same day surgery center Dr. Billy Culp Work Phone: [facility] Start: 08-17-2022 ambulatory Billy quintero MD Work Phone: [facility] Comment on above: Pneumonia and flu sh ots Start: 07-13-2022 Refill Billy quintero MD Work Phone: [facility] Comment on above: Refill Request Start: 06-22-2022 End: 06-22-[address] Billy Culp Work Phone: [facility] Start: 05-29-2022 Non-patient / Non-visit Dr. Billy Culp Work Phone: [facility] Start: 05-29-2022 End: 05-29-2022 Admission to same day surgery center Dr. Billy Culp Work Phone: [facility] Start: 05-14-2022 End: 05-14-[address] Billy Culp Work Phone: [facility] Start: 05-03-2022 Telephone encounter Dg ham APRN.CNP Work Phone: [facility] Comment on above: Results Start: 05-02-2022 End: 05-02-2022 Patient encounter procedure Emili Rachael NELSON Work Phone: [facility] Comment on above: Urinary frequency (P rimary Dx); Dysuria Start: 04-06-2022 End: 04-06-[address] Billy Culp Work Phone: [facility] Start: 03-21-2022 Telephone encounter Billy Culp MD Work Phone: [facility] Comment on above: Results Start: 03-20-2022 Telephone encounter Billy Culp MD Work Phone: [facility] Comment on above: Results Start: 03-08-2022 End: 03-08-[address] Billy Culp Work Phone: [facility] Start: 03-08-2022 End: 03-08-2022 Ophthalmic examination and evaluation Billy Culp MD Work Phone: [facility] Start: 03-08-2022 End: 03-08-2022 Patient encounter procedure Billy Culp MD Work Phone: [facility] Comment on above: Medicare annual [facility] visit, initial (Primary Dx); Type 2 diabetes mellitus with stage 3b chronic kidney disease, without long-term current use of insulin (HCC); Diabetic eye exam (HCC); Essential hypertension, benign; Hyperlipidemia, mixed; Paroxysmal atrial fibrillation (HCC); Stage 3b chronic kidney disease (HCC); Iron deficiency anemia due to chronic blood loss; Thrombocytopenia (HCC); Leukopenia, unspecified type; Vitamin B12 deficiency; Secondary esophageal varices with bleeding (HCC); Cirrhosis, nonalcoholic (HCC); SANCHEZ (nonalcoholic steatohepatitis); Pulmonary hypertension (HCC); Advance directive discussed with patient; Living will in place; Screening for osteoporosis; Primary ovarian failure; Diabetes mellitus type 2 (HCC) Start: 03-01-2022 Non-patient / Non-visit Dr. Billy Culp Work Phone: [facility] Start: 03-01-2022 End: 03-01-2022 Admission to same day surgery center Dr. Billy Culp Work Phone: [facility] Start: 02-08-2022 End: 02-08-2022 Nursing evaluation of patient and report Mi Nurse Work Phone: [facility] Comment on above: Need for vaccination (Primary Dx) Start: 02-05-2022 End: 02-05-[address] Billy Culp Work Phone: [facility] Start: 01-24-2022 Telephone encounter Billy Culp MD Work Phone: [facility] Comment on above: Orders Start: 01-24-2022 End: 01-24-[address] Billy Culp Work Phone: [facility] Start: 01-13-2022 Get Medical Advice Billy Culp MD Work Phone: [facility] Comment on above: Lab orders Start: 12-20-2021 Ophthalmic examinati on and evaluation Billy Culp MD Work Phone: [facility] Start: 12-13-2021 Non-patient / Non-visit Dr. Billy Culp Work Phone: [facility] Start: 12-13-2021 End: 12-13-2021 Admission to same day surgery center Dr. Billy Culp Work Phone: [facility] Start: 11-20-2021 End: 11-20-[address] Billy Culp Work Phone: [facility], [facility] Start: 11-17-2021 End: 11-17-[address] Billy Culp Work Phone: [facility]-Cat Scan, [facility] Start: 11-06-2021 End: 11-06-[address] Billy Culp Work Phone: [facility] Start: 10-25-2021 End: 10-25-[address] Billy Culp Work Phone: [facility] Start: 01-19-2019 End: 01-20-2019 Patient encounter procedure KAILEE CHAUDHRY [facility] Start: 06-04-2018 Ambulatory [facility] Facility :[facility] Start: 02-25-2018 End: 02-25-2018 [facility] Facility:[facility] Start: 08-28-2017 End: 08-28-2017 [facility] Facility:[facility] Procedures Date Procedure Procedure Detail Performing Clinician Start: 06-17-[address] phosphate [address] Billy Culp MD Work Phone: Start: 06-08-2025 Njjke-4-Toqedlupamj measurement Dr. Baljeet Culp MD Work Phone: Comment on above: [facility] Electrochemiluminescen ce Immunoassay(ECLIA)Values obtained with different assay methods or kits cannotbe used interchangeably. Results cannot be interpreted asabsolute evidence of the presence or absence of malignantdisease.This test is not interpretable in females.Performed at: [address] [id number] Director: Ounr Camargo PhD, Phone: [phone] Start: 06-08-2025 Total iron binding capacity measurement Dr. Billy Culp MD Work Phone: Start: 04-06-2025 Adult depression screening assessment Billy Culp MD Work Phone: Start: 01-29-[address] elast[address] of liver Dr[address] Kapil Culp MD Work Phone: Start: 11-09-2024 Radex foot complete minimum 3 views Ryan Kidd MD Work Phone: Start: 05-05-2024 Hemoglobin A1c/Hemoglobin.total in Blood [facility] Provider Start: 04-03-2024 Adult depression screening assessment Billy Culp MD Work Phone: Start: 02-03-2024 MRI of abdomen with contrast Dr. Billy Culp Work Phone: Start: 01-02-[address] Billy condon Work Phone: Start: 09-04-[address] Billy condon Work Phone: Start: 11-22-2022 Radiologic examination of knee Dr. Hermilo Culp Work Phone: Start: 11-19-[address] Billy condon Work Phone: Start: 11-01-2022 Radiologic examination of knee Dr. Hermilo Culp Work Phone: Start: 10-25-2022 Radiologic examination of knee Dr. Hermilo Culp Work Phone: Start: 09-18-2022 CBC W/DIFF/PLT (EXTERNAL LAB DAIJA) [facility] P rovider Start: 09-18-2022 Comprehensive metabolic 2000 panel - Serum or Plasma [facility] Provider Start: 05-29-[address] Billy condon Work Phone: Start: 05-14-[address] Billy condon Work Phone: Start: 05-02-2022 Urnls dip stick/tablet rgnt auto w/o microscopy Emili Cano LAB SUPPORT TECHNICIAN.ELECTRICAL PRODUCTS ENGINEER Work Phone: Start: 03-08-2022 CBC W/DIFF/PLT (EXTERNAL LAB DAIJA) [facility] P rovider Start: 03-08-2022 Comprehensive metabolic 2000 panel - Serum or Plasma [facility] Provider Start: 03-08-2022 Adult depression screening assessment Billy Culp MD Work Phone: Start: 03-01-[address] Billy condon Work Phone: Start: 11-20-2021 Elastography Parenchyma/Organ Dr. Binta Culp Work Phone: Start: 11-20-[address] Billy condon Work Phone: Start: 11-17-2021 Computed tomography of abdomen and pelvis with contrast Dr. Billy Culp Work Phone: Start: 08-15-2021 Mammography Billy Culp MD Work Phone: Start: 07-29-2021 Adult depression screening assessment Billy Culp MD Work Phone: Start: 01-19-2019 Antibody screen KAILEE SANCHEZ Comment on above: Performed By: #### TSCR #### [place] [address] Start: 10-08-2018 Colonoscopy Billy Culp MD Work Phone: Plan of Treatment Date Care Activity Detail Author Start: 07-20-2032 Tetanus vaccination TETANUS [facility] Start: 07-20-2032 Urine microalbumin profile [facility] oct[facility]io Start: 10-08-2028 Screening for malignant neoplasm of colon [facility] Start: 04-06-2026 Annual PCP Team Chronic Disease Visit Annual PCP Team Chronic Disease Visit [facility] Start: 04-06-2026 Anxiety Screening Anxiety Screening [facility] Start: 04-06-2026 Covid-19 Vaccine () Covid-19 Vaccine () [facility] Comment on above: Postponed from 11/25/2024 (Declined at t his time) Start: 04-06-2026 Depression Screening Depression Screening [facility] Start: 04-06-2026 Diabetic foot examination Diabetic Foot Exam [facility] Start: 04-06-2026 Screening for malignant neoplasm of breast Mammogram Screening [facility] Comment on above: Postponed from 08/15/2022 (Declined at t his time) Start: 03-31-2026 Complete blood count Hemoglobin/Hematocrit [facility] Start: 03-31-2026 Creatinine measurement Serum Creatinine [facility] Start: 03-31-2026 Hepatitis B screening Urine Albumin:Creatinine Ratio [facility] Start: 03-31-2026 Hepatitis B surface antibody level LDL Cholesterol [facility] Start: 03-03-2026 Glaucoma screening Dilated Retinal Exam [facility] Start: 10-29-2025 End: 10-29-2025 Patient encounter procedure 10/29/2025 10:30 AM EST Office Visit [facility] [address] [place] [address] Akanksha Man, LAB SUPPORT TECHNICIAN-ELECTRICAL PRODUCTS ENGINEER [address] [id number] [facility] Start: 10-07-2025 End: 10-07-2025 Patient encounter procedure 10/07/2025 10:20 AM EST Office Visit Family [facility] [address] [place], [place] [id number] Teri Orosco APRN.ELECTRICAL PRODUCTS ENGINEER [address] [place], [place] [phone] 6 month follow up Family [facility] Comment on above: 6 month follow up Start: 10-05-2025 Annual PCP Team Chronic Disease Visit Annual PCP Team Chronic Disease Visit [facility] Start: 10-05-2025 BP Controlled (<130/80) BP Controlled (<130/80) [facility] Start: 09-30-2025 Complete blood count Hemoglobin/Hematocrit [facility] Start: 09-30-2025 Creatinine measurement Serum Creatinine [facility] Start: 09-30-2025 Hemoglobin A1c measurement HbA1C [facility] Start: 09-30-2025 Hepatitis B surface antibody level LDL Cholesterol [facility] Start: 09-24-2025 End: 12-24-2025 CBC W Auto Differential panel - Blood COMPLETE BLOOD COUNT AND DIFFERENTIAL Lab Routine Type 2 diabetes mellitus with stage 3b chronic kidney disease, without long-term current use of insulin (HCC) Hypothyroidism, acquired Iron deficiency anemia due to chronic blood loss Leukopenia, unspecified type Thrombocytopenia Expected: 09/24/2025, Expires: 12/24/2025 [facility] Comment on above: Expected: 09/24/2025, Expires: Start: 09-24-2025 End: 12-24-2025 Comprehensive metabolic 2000 panel - Serum or Plasma COMPREHENSIVE METABOLIC PANEL Lab Routine Type 2 diabetes mellitus with stage 3b chronic kidney disease, without long-term current use of insulin (HCC) Essential hypertension, benign Hyperlipidemia, mixed Stage 3b chronic kidney disease (HCC) SANCHEZ (nonalcoholic steatohepatitis) Expected: 09/24/2025, Expires: 12/24/2025 [facility] Work Phone: Comment on above: Expected: 09/24/2025, Expires: Start: 09-24-2025 End: 12-24-2025 Hemoglobin A1c in Blood HEMOGLOBIN A1C Lab Routine Type 2 diabetes mellitus with stage 3b chronic kidney disease, without long-term current use of insulin (HCC) Expected: 09/24/2025, Expires: 12/24/2025 [facility] Comment on above: Expected: 09/24/2025, Expires: Start: 09-24-2025 End: 12-24-2025 LIPID PANEL, NONFASTING LIPID PANEL, NONFASTING Lab Routine Type 2 diabetes mellitus with stage 3b chronic kidney disease, without long-term current use of insulin (HCC) Essential hypertension, benign Hyperlipidemia, mixed Expected: 09/24/2025, Expires: 12/24/2025 [facility] Comment on above: Expected: 09/24/2025, Expires: Start: 09-24-2025 End: 12-24-2025 Thyrotropin [Units/volume] in Serum or Plasma THYROID STIMULATING HORMONE Lab Routine Hypothyroidism, acquired Expected: 09/24/2025, Expires: 12/24/2025 [facility] Comment on above: Expected: 09/24/2025, Expires: Start: 08-28-2025 End: 02-25-2026 US Abdomen RUQ US ABDOMEN RUQ/LIVER/GB Imaging Routine Cirrhosis of liver without ascites, unspecified hepatic cirrhosis type Expected: 08/28/2025 (Approximate), Expires: 02/25/2026 [facility] Comment on above: Expected: 08/28/2025 (Approximate), Expi res: 02/25/2026 Start: 08-04-2025 Annual PCP Team Chronic Disease Visit Annual PCP Team Chronic Disease Visit [facility] Start: 08-04-2025 BP Controlled (<130/80) BP Controlled (<130/80) [facility] Start: 08-02-2025 End: 07-29-2026 CHEM 6 (LYTES, BUN CREA) CHEM 6 (LYTES, BUN CREA) Lab Routine Cirrhosis of liver with ascites, unspecified hepatic cirrhosis type CKD stage 3b, GFR 30-44 ml/min Expected: 08/02/2025, Expires: 07/29/2026 [facility] Comment on above: Expected: 08/02/2025, Expires: Start: 07-29-2025 End: 07-29-2026 Colonoscopy DIAGNOSTIC COLONOSCOPY GI/Bronch Routine Generalized abdominal pain Expected: 07/29/2025, Expires: 07/29/2026 [facility] Comment on above: Expected: 07/29/2025, Expires: Start: 07-29-2025 Complete blood count Hemoglobin/Hematocrit [facility] Start: 07-29-2025 End: 07-29-2026 DIAGNOSTIC UPPER ENDOSCOPY DIAGNOSTIC UPPER ENDOSCOPY GI/Bronch Routine Cirrhosis of liver with ascites, unspecified hepatic cirrhosis type Generalized abdominal pain Expected: 07/29/2025, Expires: 07/29/2026 [facility] Comment on above: Expected: 07/29/2025, Expires: Start: 07-29-2025 End: 07-29-2026 US Abdomen RUQ US ABDOMEN RUQ/LIVER/GB Imaging Routine Cirrhosis of liver with ascites, unspecified hepatic cirrhosis type Expected: 07/29/2025 (Approximate), Expires: 07/29/2026 [facility] Comment on above: Expected: 07/29/2025 (Approximate), Expi res: 07/29/2026 Start: 06-28-2025 COVID-19 VACCINE ( season) COVID-19 VACCINE ( season) [facility] Start: 06-28-2025 Influenza vaccination Influenza Vaccine (#1) [facility] Start: 06-10-2025 Annual PCP Team Chronic Disease Visit Annual PCP Team Chronic Disease Visit [facility] Start: 06-10-2025 BP Controlled (<130/80) BP Controlled (<130/80) [facility] Start: 04-06-2025 End: 04-06-2025 Patient encounter procedure [facility] Comment on above: Medicare Wellness Start: 04-05-2025 End: 07-05-2025 CBC W Auto Differential panel - Blood COMPLETE BLOOD COUNT AND DIFFERENTIAL Lab Routine Iron deficiency anemia due to chronic blood loss Expected: 04/05/2025, Expires: 07/05/2025 [facility] Comment on above: Expected: 04/05/2025, Expires: Start: 04-05-2025 End: 07-05-2025 Cobalamin (Vitamin B12) [Mass/volume] in Serum or Plasma VITAMIN B12 Lab Routine Medication management Vitamin B12 deficiency Expected: 04/05/2025, Expires: 07/05/2025 [facility] Comment on above: Expected: 04/05/2025, Expires: Start: 04-05-2025 End: 07-05-2025 Comprehensive metabolic 2000 panel - Serum or Plasma COMPREHENSIVE METABOLIC PANEL Lab Routine Type 2 diabetes mellitus with stage 3b chronic kidney disease, without long-term current use of insulin (HCC) Essential hypertension, benign Expected: 04/05/2025, Expires: 07/05/2025 [facility] Comment on above: Expected: 04/05/2025, Expires: Start: 04-05-2025 End: 07-05-2025 Hemoglobin A1c in Blood HEMOGLOBIN A1C Lab Routine Type 2 diabetes mellitus with stage 3b chronic kidney disease, without long-term current use of insulin (HCC) Expected: 04/05/2025, Expires: 07/05/2025 [facility] Comment on above: Expected: 04/05/2025, Expires: Start: 04-05-2025 Hemoglobin A[facility]c [facility] Start: 04-05-2025 End: 07-05-2025 Iron and Iron binding capacity panel - Serum or Plasma IRON AND TIBC Lab Routine Iron deficiency anemia due to chronic blood loss Expected: 04/05/2025, Expires: 07/05/2025 [facility] Comment on above: Expected: 04/05/2025, Expires: Start: 04-05-2025 End: 07-05-2025 LIPID PANEL, NONFASTING LIPID PANEL, NONFASTING Lab Routine Type 2 diabetes mellitus with stage 3b chronic kidney disease, without long-term current use of insulin (HCC) Hyperlipidemia, mixed Expected: 04/05/2025, Expires: 07/05/2025 [facility] Comment on above: Expected: 04/05/2025, Expires: Start: 04-05-2025 End: 07-05-2025 Magnesium [Mass/volume] in Serum or Plasma MAGNESIUM Lab Routine Medication management Expected: 04/05/2025, Expires: 07/05/2025 [facility] Comment on above: Expected: 04/05/2025, Expires: Start: 04-05-2025 End: 07-05-2025 Microalbumin/Creatinine [Mass Ratio] in Urine ALBUMIN/CREATININE RATIO, URINE Lab Routine Type 2 diabetes mellitus with stage 3b chronic kidney disease, without long-term current use of insulin (HCC) Expected: 04/05/2025, Expires: 07/05/2025 [facility] Comment on above: Expected: 04/05/2025, Expires: Start: 04-05-2025 End: 07-05-2025 Thyrotropin [Units/volume] in Serum or Plasma THYROID STIMULATING HORMONE Lab Routine Hypothyroidism, acquired Expected: 04/05/2025, Expires: 07/05/2025 [facility] Comment on above: Expected: 04/05/2025, Expires: Start: 04-05-2025 End: 07-05-2025 Urinalysis complete panel - Urine URINALYSIS, WITH MICROSCOPIC Lab Routine Type 2 diabetes mellitus with stage 3b chronic kidney disease, without long-term current use of insulin (HCC) Expected: 04/05/2025, Expires: 07/05/2025 [facility] Comment on above: Expected: 04/05/2025, Expires: Start: 04-03-2025 Annual PCP Team Chronic Disease Visit Annual PCP Team Chronic Disease Visit [facility] Start: 04-03-2025 Anxiety Screening Anxiety Screening [facility] Start: 04-03-2025 BP Controlled (<130/80) BP Controlled (<130/80) [facility] Start: 04-03-2025 Covid-19 Vaccine ( season) Covid-19 Vaccine () [facility] Comment on above: Postponed from 12/16/2023 (Declined at t his time) Start: 04-03-2025 Depression Screening Depression Screening [facility] Start: 04-03-2025 Diabetic foot examination Diabetic Foot Exam [facility] Start: 04-03-2025 Medicare Annual Wellness Visit Medicare Annual Wellness Visit [facility] Start: 04-03-2025 End: 07-03-2025 Thyrotropin [Units/volume] in Serum or Plasma THYROID STIMULATING HORMONE Lab Routine Hypothyroidism, acquired Expected: 04/03/2025, Expires: 07/03/2025 [facility] Work Phone: Comment on above: Expected: 04/03/2025, Expires: Start: 03-26-2025 Complete blood count Hemoglobin/Hematocrit [facility] Start: 03-26-2025 Creatinine measurement Serum Creatinine [facility] Start: 03-26-2025 Hepatitis B screening Urine Albumin:Creatinine Ratio [facility] Start: 03-26-2025 Hepatitis B surface antibody level LDL Cholesterol [facility] Start: 02-04-2025 Glaucoma screening Dilated Retinal Exam [facility] Start: 11-25-2024 Covid-19 Vaccine ( season) Covid-19 Vaccine () [facility] Start: 11-05-2024 End: 02-04-2025 Calcium [Mass/volume] in Serum or Plasma CALCIUM, TOTAL Lab Routine Hypercalcemia Expected: 11/05/2024, Expires: 02/04/2025 [facility] Comment on above: Expected: 11/05/2024, Expires: Start: 11-05-2024 Hemoglobin A1c measurement HbA1C [facility] Start: 11-05-2024 End: 02-04-2025 Thyrotropin [Units/volume] in Serum or Plasma THYROID STIMULATING HORMONE Lab Routine Hypothyroidism, acquired Expected: 11/05/2024, Expires: 02/04/2025 [facility] Work Phone: Comment on above: Expected: 11/05/2024, Expires: Start: 11-05-2024 End: 02-04-2025 Thyroxine (T4) free [Mass/volume] in Serum or Plasma T4 FREE/FREE THYROXINE Lab Routine Hypothyroidism, acquired Expected: 11/05/2024, Expires: 02/04/2025 [facility] Comment on above: Expected: 11/05/2024, Expires: Start: 10-28-2024 Advance Directive Discussion Advance Directive Discussion [facility] Start: 10-05-2024 End: 01-04-2025 Hemoglobin A1c in Blood [facility] Comment on above: Expected: 10/05/2024, Expires: Start: 10-05-2024 End: 10-05-2024 Patient encounter procedure 10/05/2024 10:40 AM EST Office Visit Family Magdaleno [facility] [address] [facility] Doretha G[place] [phone] Suzie Lechuga PA-C [address] [place] [place] [phone] 6 month follow up Family Magdaleno Gordon Comment on above: 6 month follow up Start: 10-03-2024 Annual PCP Team Chronic Disease Visit Annual PCP Team Chronic Disease Visit [facility] Start: 10-03-2024 BP Controlled (<130/80) BP Controlled (<130/80) [facility] Start: 09-26-2024 Hemoglobin A1c measurement HbA1C [facility] Start: 09-18-2024 End: 12-18-2024 CBC W Auto Differential panel - Blood COMPLETE BLOOD COUNT AND DIFFERENTIAL Lab Routine Type 2 diabetes mellitus with stage 3b chronic kidney disease, without long-term current use of insulin (HCC) Stage 3b chronic kidney disease (HCC) Thrombocytopenia (HCC) Leukopenia, unspecified type Expected: 09/18/2024, Expires: 12/18/2024 [facility] Comment on above: Expected: 09/18/2024, Expires: Start: 09-18-2024 End: 12-18-2024 Comprehensive metabolic 2000 panel - Serum or Plasma COMPREHENSIVE METABOLIC PANEL Lab Routine Type 2 diabetes mellitus with stage 3b chronic kidney disease, without long-term current use of insulin (HCC) Essential hypertension, benign Hyperlipidemia, mixed Stage 3b chronic kidney disease (HCC) SANCHEZ (nonalcoholic steatohepatitis) Expected: 09/18/2024, Expires: 12/18/2024 [facility] Comment on above: Expected: 09/18/2024, Expires: Start: 09-18-2024 End: 12-18-2024 LIPID PANEL, NONFASTING LIPID PANEL, NONFASTING Lab Routine Type 2 diabetes mellitus with stage 3b chronic kidney disease, without long-term current use of insulin (HCC) Essential hypertension, benign Hyperlipidemia, mixed Expected: 09/18/2024, Expires: 12/18/2024 [facility] Comment on above: Expected: 09/18/2024, Expires: Start: 09-18-2024 End: 12-18-2024 Thyrotropin [Units/volume] in Serum or Plasma THYROID STIMULATING HORMONE Lab Routine Hypothyroidism, acquired Expected: 09/18/2024, Expires: 12/18/2024 [facility] Comment on above: Expected: 09/18/2024, Expires: Start: 09-16-2024 Complete blood count Hemoglobin/Hematocrit [facility] Start: 09-16-2024 Creatinine measurement Serum Creatinine [facility] Start: 09-16-2024 Hemoglobin/Hematocrit Hemoglobin/Hematocrit [facility] Start: 09-16-2024 Hepatitis B surface antibody level LDL Cholesterol [facility] Start: 09-16-2024 Serum Creatinine Serum Creatinine [facility] Start: 08-04-2024 End: 08-04-2024 Patient encounter procedure 08/04/2024 11:20 AM EDT Office Visit Family Magdaleno Gordon [address] [place] [address] Billy Culp MD [address] [place] [address] [facility] ER f/u EGD to repair a Nata white tear in esophagus. See TE 07/22/24. Family Magdal[facility] Gordon Comment on above: [facility] ER f/u EGD to repair a Nata white tear in esophagus. See TE 07/22/24. Start: 07-30-2024 Glaucoma screening Dilated Retinal Exam [facility] Start: 07-30-2024 Hepatitis C antibody, confirmatory test Dilated Retinal Exam [facility] Start: 07-29-2024 End: 07-29-2024 Patient encounter procedure 07/29/2024 7:00 PM EDT Office Visit [facility] [address] [place] [address] Billy Culp MD [address] [place] [address] [facility] ER f/u EGD to repair a Anta white tear in esophagus. See TE 07/22/24. [facility] Comment on above: [facility] ER f/u EGD to repair a Nata white tear in esophagus. See TE 07/22/24. Start: 07-28-2024 End: 10-27-2024 CBC W Auto Differential panel - Blood COMPLETE BLOOD COUNT AND DIFFERENTIAL Lab Routine Anitra-Jackson tear Expected: 07/28/2024, Expires: 10/27/2024 [facility] Work Phone: Comment on above: Expected: 07/28/2024, Expires: Start: 07-24-2024 End: 07-24-2024 Patient encounter procedure 07/24/2024 12:40 PM EDT Office Visit [facility] [address] [place], [place] [id number] Teri Orosco APRN.[facility] [address] [place], [place] [id number] hosp discharge [facility] Comment on above: hosp discharge Start: 06-28-2024 Covid-19 Vaccine ( season) Covid-19 Vaccine ( season) [facility] Start: 06-28-2024 Covid-19 Vaccine ( season) Covid-19 Vaccine ( season) [facility] Start: 06-28-2024 Influenza vaccination Influenza Vaccine (#1) [facility] Start: 06-10-2024 End: 06-10-2024 Patient encounter procedure 06/10/2024 9:40 AM EDT Office Visit [facility] [address] [place] [address] Billy Culp MD [address] [place], [place] [id number] follow up on edema and hypothyroid [facility] Comment on above: follow up on edema and hypothyroid Start: 06-03-2024 End: 09-02-2024 Hepatic function 2000 panel - Serum or Plasma HEPATIC FUNCTION PNL Lab Routine Mild protein-calorie malnutrition (HCC) Expected: 06/03/2024, Expires: 09/02/2024 [facility] Comment on above: Expected: 06/03/2024, Expires: Start: 06-03-2024 End: 09-02-2024 THYROID PEROXIDASE ANTIBODY THYROID PEROXIDASE ANTIBODY Lab Routine Hypothyroidism, acquired Expected: 06/03/2024, Expires: 09/02/2024 [facility] Comment on above: Expected: 06/03/2024, Expires: Start: 06-03-2024 End: 09-02-2024 Thyrotropin [Units/volume] in Serum or Plasma THYROID STIMULATING HORMONE Lab Routine Hypothyroidism, acquired Expected: 06/03/2024, Expires: 09/02/2024 [facility] Work Phone: Comment on above: Expected: 06/03/2024, Expires: 4 Start: 05-24-2024 Hepatitis B screening URINE ALBUMIN:CREATININE RATIO [facility] Start: 04-03-2024 End: 04-03-2024 Patient encounter procedure 04/03/2024 2:20 PM EDT Office Visit [facility] [address] [place] [address] Billy Culp MD [address] [place], [place] [phone] medicare wellness [facility] Comment on above: medicare wellness Start: 04-03-2024 3 comp foot exam completed DIABETIC FOOT EXAM [facility] Start: 04-03-2024 ANNUAL PCP TEAM CHRONIC DISEASE VISIT ANNUAL PCP TEAM CHRONIC DISEASE VISIT [facility] Start: 04-03-2024 BP CONTROLLED (<130/80) BP CONTROLLED (<130/80) [facility] Start: 04-03-2024 Diabetic foot examination Diabetic Foot Exam [facility] Start: 04-03-2024 HEMOGLOBIN/HEMATOCRIT HEMOGLOBIN/HEMATOCRIT [facility] Start: 04-03-2024 Hepatitis B surface antibody level LDL CHOLESTEROL [facility] Start: 04-03-2024 SERUM CREATININE SERUM CREATININE [facility] Start: 03-24-2024 End: 06-23-2024 CBC W Auto Differential panel - Blood COMPLETE BLOOD COUNT AND DIFFERENTIAL Lab Routine Type 2 diabetes mellitus with stage 3b chronic kidney disease, without long-term current use of insulin (HCC) Iron deficiency anemia due to chronic blood loss Stage 3b chronic kidney disease (HCC) Thrombocytopenia (HCC) Vitamin B12 deficiency SANCHEZ (nonalcoholic steatohepatitis) Expected: 03/24/2024, Expires: 06/23/2024 [facility] Comment on above: Expected: 03/24/2024, Expires: Start: 03-24-2024 End: 06-23-2024 Cobalamin (Vitamin B12) [Mass/volume] in Serum or Plasma VITAMIN B12 Lab Routine Vitamin B12 deficiency Expected: 03/24/2024, Expires: 06/23/2024 [facility] Work Phone: Comment on above: Expected: 03/24/2024, Expires: Start: 03-24-2024 End: 06-23-2024 Comprehensive metabolic 2000 panel - Serum or Plasma COMPREHENSIVE METABOLIC PANEL Lab Routine Essential hypertension, benign Type 2 diabetes mellitus with stage 3b chronic kidney disease, without long-term current use of insulin (HCC) Hyperlipidemia, mixed Stage 3b chronic kidney disease (HCC) Expected: 03/24/2024, Expires: 06/23/2024 [facility] Comment on above: Expected: 03/24/2024, Expires: Start: 03-24-2024 End: 06-23-2024 Hemoglobin A1c in Blood HEMOGLOBIN A1C Lab Routine Type 2 diabetes mellitus with stage 3b chronic kidney disease, without long-term current use of insulin (HCC) Expected: 03/24/2024, Expires: 06/23/2024 [facility] Comment on above: Expected: 03/24/2024, Expires: Start: 03-24-2024 End: 06-23-2024 Iron and Iron binding capacity panel - Serum or Plasma IRON AND TIBC Lab Routine Iron deficiency anemia due to chronic blood loss Expected: 03/24/2024, Expires: 06/23/2024 [facility] Comment on above: Expected: 03/24/2024, Expires: Start: 03-24-2024 End: 06-23-2024 LIPID PANEL, NONFASTING LIPID PANEL, NONFASTING Lab Routine Essential hypertension, benign Type 2 diabetes mellitus with stage 3b chronic kidney disease, without long-term current use of insulin (HCC) Hyperlipidemia, mixed Expected: 03/24/2024, Expires: 06/23/2024 [facility] Comment on above: Expected: 03/24/2024, Expires: Start: 03-24-2024 End: 06-23-2024 Microalbumin/Creatinine [Mass Ratio] in Urine ALBUMIN/CREATININE RATIO, URINE Lab Routine Type 2 diabetes mellitus with stage 3b chronic kidney disease, without long-term current use of insulin (HCC) Expected: 03/24/2024, Expires: 06/23/2024 [facility] Comment on above: Expected: 03/24/2024, Expires: Start: 03-24-2024 End: 06-23-2024 Thyrotropin [Units/volume] in Serum or Plasma THYROID STIMULATING HORMONE Lab Routine Paroxysmal atrial fibrillation (HCC) Expected: 03/24/2024, Expires: 06/23/2024 [facility] Comment on above: Expected: 03/24/2024, Expires: Start: 03-24-2024 End: 06-23-2024 Urinalysis complete panel - Urine URINALYSIS, WITH MICROSCOPIC Lab Routine Essential hypertension, benign Type 2 diabetes mellitus with stage 3b chronic kidney disease, without long-term current use of insulin (HCC) Hyperlipidemia, mixed Expected: 03/24/2024, Expires: 06/23/2024 [facility] Comment on above: Expected: 03/24/2024, Expires: Start: 03-16-2024 Hemoglobin A1c measurement HbA1C [facility] Start: 03-16-2024 Hemoglobin A1c/Hemoglobin.total in Blood HbA1C [facility] Start: 02-13-2024 End: 02-13-2024 Patient encounter procedure 02/13/2024 10:00 AM EDT Office Visit [facility] [address] [place] [address] America Mcclure MD [address] [place] [address] [facility] Start: 01-02-2024 Esophagogastroduodenoscopy transoral diagnostic EGD DIAGNOSTIC BRUSH WASH [facility] Start: 01-02-2024 Patient discharge [facility] Start: 12-16-2023 Covid-19 Vaccine () Covid-19 Vaccine () [facility] Start: 10-28-2023 Advance Directive Discussion Advance Directive Discussion [facility] Start: 10-28-2023 Behavioral Health Screening Behavioral Health Screening [facility] Start: 10-28-2023 Depression Assessment Depression Assessment [facility] Start: 10-08-2023 Colonoscopy COLONOSCOPY [facility] Start: 10-08-2023 COLORECTAL CANCER SCREENING COLORECTAL CANCER SCREENING [facility] Start: 10-03-2023 Hemoglobin A1c/Hemoglobin.total in Blood HBA1C [facility] Start: 09-26-2023 ANNUAL PCP TEAM CHRONIC DISEASE VISIT ANNUAL PCP TEAM CHRONIC DISEASE VISIT [facility] Start: 09-26-2023 BP CONTROLLED (<130/80) BP CONTROLLED (<130/80) [facility] Start: 09-26-2023 Hepatitis B surface antibody level LDL CHOLESTEROL [facility] Start: 09-18-2023 HEMOGLOBIN/HEMATOCRIT HEMOGLOBIN/HEMATOCRIT [facility] Start: 06-28-2023 End: 08-28-2023 Calcium [Mass/volume] in Serum or Plasma CALCIUM TOTAL BLD Lab Routine Hypercalcemia Expected: 06/28/2023, Expires: 08/28/2023 [facility] Work Phone: Comment on above: Expected: 06/28/2023, Expires: Start: 06-28-2023 Covid-19 Vaccine () Covid-19 Vaccine () [facility] Start: 06-28-2023 Influenza vaccination [facility] Start: 06-28-2023 End: 08-28-2023 Parathyrin.intact [Mass/volume] in Serum or Plasma PTH INTACT BLD Lab Routine Hypercalcemia Expected: 06/28/2023, Expires: 08/28/2023 [facility] Work Phone: Comment on above: Expected: 06/28/2023, Expires: Start: 06-20-2023 End: 06-20-2024 US Abdomen RUQ US ABDOMEN RUQ/LIVER/GB Imaging Routine Cirrhosis of liver without ascites, unspecified hepatic cirrhosis type Expected: 06/20/2023 (Approximate), Expires: 06/20/2024 [facility] Comment on above: Expected: 06/20/2023 (Approximate), Expi res: 06/20/2024 Start: 03-26-2023 Hemoglobin A1c/Hemoglobin.total in Blood HBA1C [facility] Start: 03-20-2023 Screening for osteoporosis DEXA SCAN DISCUSSION [facility] Start: 03-10-2023 SHINGRIX VACCINE (3 of 3) SHINGRIX VACCINE (3 of 3) [facility] Comment on above: Postponed from 03/16/2022 (Insurance Cov erage) Start: 03-08-2023 3 comp foot exam [facility] Start: 03-08-2023 Adult depression screening assessment DEPRESSION SCREENING [facility] Start: 03-08-2023 ANNUAL PCP TEAM CHRONIC DISEASE VISIT ANNUAL PCP TEAM CHRONIC DISEASE VISIT [facility] Start: 03-08-2023 BP CONTROLLED (<130/80) BP CONTROLLED (<130/80) [facility] Start: 03-08-2023 HEMOGLOBIN/HEMATOCRIT HEMOGLOBIN/HEMATOCRIT [facility] Start: 03-08-2023 Urine microalbumin profile DTAP,TDAP,TD (2 - Td or Tdap) [facility] Comment on above: Postponed from 11/04/2018 (Insurance Cov erage) Start: 01-24-2023 HEMOGLOBIN/HEMATOCRIT HEMOGLOBIN/HEMATOCRIT [facility] Start: 01-24-2023 Hepatitis B screening URINE ALBUMIN:CREATININE RATIO [facility] Start: 01-24-2023 Hepatitis B surface antibody level LDL CHOLESTEROL [facility] Start: 01-24-2023 SERUM CREATININE SERUM CREATININE [facility] Start: 12-19-2022 Hepatitis C antibody, confirmatory test DILATED RETINAL EXAM [facility] Start: 11-26-2022 COVID-19 VACCINE (5 - Moderna series) COVID-19 VACCINE (5 - Moderna series) [facility] Start: 11-26-2022 COVID-19 VACCINE (6 - Moderna series) COVID-19 VACCINE (6 - Moderna series) [facility] Start: 11-01-2022 Patient referral [facility] Work Phone: Start: 10-28-2022 ADVANCE DIRECTIVE DISCUSSION ADVANCE DIRECTIVE DISCUSSION [facility] Start: 10-28-2022 DEPRESSION ASSESSMENT DEPRESSION ASSESSMENT [facility] Start: 09-26-2022 End: 11-26-2022 Hemoglobin A1c in Blood [facility] Work Phone: Comment on above: Expected: 09/26/2022, Expires: 3 Start: 09-26-2022 End: 11-26-2022 Iron and Iron binding capacity panel - Serum or Plasma [facility] Work Phone: Comment on above: Expected: 09/26/2022, Expires: 3 Start: 09-26-2022 End: 11-26-2022 LIPID PANEL, NONFASTING [facility] Work Phone: Comment on above: Expected: 09/26/2022, Expires: 3 Start: 09-26-2022 PNEUMOCOCCAL: 65+ (3 - PPSV23 if available, else PCV20) PNEUMOCOCCAL: 65+ (3 - PPSV23 if available, else PCV20) [facility] Comment on above: Postponed from 08/10/2022 (Postponed To Appropriate Date) Start: 09-26-2022 PNEUMOCOCCAL: 65+ (3 - PPSV23 or PCV20) PNEUMOCOCCAL: 65+ (3 - PPSV23 or PCV20) [facility] Comment on above: Postponed from 08/10/2022 (Postponed To Appropriate Date) Start: 09-26-2022 PNEUMOVAX AGE 65 AND OVER WITH 5YR LOOKBACK (#1) PNEUMOVAX AGE 65 AND OVER WITH 5YR LOOKBACK (#1) [facility] Comment on above: Postponed from 2020 (Postponed To Appropriate Date) Start: 09-20-2022 Hemoglobin A1c/Hemoglobin.total in Blood HBA1C [facility] Start: 09-10-2022 Egd band ligation esophgeal/gastric varices EGD VARICES LIGATION [facility] Start: 09-10-2022 Patient discharge [facility] Start: 08-15-2022 HEMOGLOBIN/HEMATOCRIT HEMOGLOBIN/HEMATOCRIT [facility] Start: 08-15-2022 Hepatitis B screening URINE ALBUMIN:CREATININE RATIO [facility] Start: 08-15-2022 Hepatitis B surface antibody level LDL CHOLESTEROL [facility] Start: 08-15-2022 Mammography [facility] Start: 08-15-2022 Screening for malignant neoplasm of breast [facility] Start: 08-15-2022 SERUM CREATININE SERUM CREATININE [facility] Start: 08-10-2022 ANNUAL PCP TEAM CHRONIC DISEASE VISIT ANNUAL PCP TEAM CHRONIC DISEASE VISIT [facility] Start: 08-10-2022 PNEUMOCOCCAL: 65+ (3 - PPSV23 or PCV20) PNEUMOCOCCAL: 65+ (3 - PPSV23 or PCV20) [facility] Start: 07-31-2022 BP CONTROLLED (<130/80) BP CONTROLLED (<130/80) [facility] Start: 07-29-2022 Adult depression screening assessment DEPRESSION SCREENING [facility] Start: 06-28-2022 Influenza vaccination INFLUENZA (#1) [facility] Start: 05-29-2022 Egd transoral biopsy single/multiple EGD BIOPSY SINGLE/MULTIPLE [facility] Work Phone: Start: 05-29-2022 Patient discharge [facility] Work Phone: Start: 04-26-2022 Hemoglobin A1c/Hemoglobin.total in Blood HBA1C [facility] Start: 03-19-2022 End: 05-19-2022 Hemoglobin A1c/Hemoglobin.total in Blood HGB A1C Lab Routine Type 2 diabetes mellitus with stage 3b chronic kidney disease, without long-term current use of insulin (HCC) Expected: 03/19/2022, Expires: 05/19/2022 [facility] Work Phone: Comment on above: Expected: 03/19/2022, Expires: Start: 03-19-2022 End: 05-19-2022 IRON + TIBC IRON + TIBC Lab Routine Iron deficiency anemia due to chronic blood loss Expected: 03/19/2022, Expires: 05/19/2022 [facility] Work Phone: Comment on above: Expected: 03/19/2022, Expires: 2 Start: 03-01-2022 Egd band ligation esophgeal/gastric varices EGD VARICES LIGATION [facility] Work Phone: Start: 02-13-2022 Hemoglobin A1c/Hemoglobin.total in Blood HBA1C [facility] Start: 02-08-2022 HEPATITIS A (2 of 2 - Risk 2-dose series) HEPATITIS A (2 of 2 - Risk 2-dose series) [facility] Start: 02-08-2022 HEPATITIS B (3 of 3 - Risk 3-dose series) HEPATITIS B (3 of 3 - Risk 3-dose series) [facility] Start: 01-15-2022 End: 03-17-2022 ALBUMIN/CREAT RATIO RND UR ALBUMIN/CREAT RATIO RND UR Lab Routine Type 2 diabetes mellitus with stage 3b chronic kidney disease, without long-term current use of insulin (HCC) Expected: 01/15/2022, Expires: 03/17/2022 [facility] Work Phone: Comment on above: Expected: 01/15/2022, Expires: 2 Start: 01-15-2022 End: 03-17-2022 CBC W Auto Differential panel - Blood CBC + DIFF Lab Routine Type 2 diabetes mellitus with stage 3b chronic kidney disease, without long-term current use of insulin (HCC) Stage 3b chronic kidney disease (HCC) Iron deficiency anemia due to chronic blood loss Vitamin B12 deficiency Thrombocytopenia (HCC) Leukopenia, unspecified type Expected: 01/15/2022, Expires: 03/17/2022 [facility] Work Phone: Comment on above: Expected: 01/15/2022, Expires: 2 Start: 01-15-2022 End: 03-17-2022 Comprehensive metabolic 2000 panel - Serum or Plasma COMP METABOLIC PANEL Lab Routine Type 2 diabetes mellitus with stage 3b chronic kidney disease, without long-term current use of insulin (HCC) Stage 3b chronic kidney disease (HCC) Hyperlipidemia, mixed Essential hypertension, benign SANCHEZ (nonalcoholic steatohepatitis) Expected: 01/15/2022, Expires: 03/17/2022 [facility] Work Phone: Comment on above: Expected: 01/15/2022, Expires: 2 Start: 01-15-2022 End: 03-17-2022 Hemoglobin A1c/Hemoglobin.total in Blood HGB A1C Lab Routine Type 2 diabetes mellitus with stage 3b chronic kidney disease, without long-term current use of insulin (HCC) Expected: 01/15/2022, Expires: 03/17/2022 [facility] Work Phone: Comment on above: Expected: 01/15/2022, Expires: 2 Start: 01-15-2022 End: 03-17-2022 IRON + TIBC IRON + TIBC Lab Routine Iron deficiency anemia due to chronic blood loss Expected: 01/15/2022, Expires: 03/17/2022 [facility] Work Phone: Comment on above: Expected: 01/15/2022, Expires: 2 Start: 01-15-2022 End: 03-17-2022 LIPID PANEL, NONFASTING LIPID PANEL, NONFASTING Lab Routine Type 2 diabetes mellitus with stage 3b chronic kidney disease, without long-term current use of insulin (HCC) Hyperlipidemia, mixed Essential hypertension, benign SANCHEZ (nonalcoholic steatohepatitis) Expected: 01/15/2022, Expires: 03/17/2022 [facility] Work Phone: Comment on above: Expected: 01/15/2022, Expires: 2 Start: 01-15-2022 End: 03-17-2022 Urinalysis complete panel - Urine URINALYSIS, WITH MICROSCOPIC Lab Routine Type 2 diabetes mellitus with stage 3b chronic kidney disease, without long-term current use of insulin (HCC) Stage 3b chronic kidney disease (HCC) Hyperlipidemia, mixed Essential hypertension, benign Expected: 01/15/2022, Expires: 03/17/2022 [facility] Work Phone: Comment on above: Expected: 01/15/2022, Expires: 2 Start: 01-15-2022 End: 03-17-2022 VITAMIN B12 BLOOD VITAMIN B12 BLOOD Lab Routine Vitamin B12 deficiency Expected: 01/15/2022, Expires: 03/17/2022 [facility] Work Phone: Comment on above: Expected: 01/15/2022, Expires: 2 Start: 01-10-2022 COVID-19 VACCINE (4 - Booster for Moderna series) COVID-19 VACCINE (4 - Booster for Moderna series) [facility] Start: 12-13-2021 Egd band ligation esophgeal/gastric varices EGD VARICES LIGATION [facility] Work Phone: Start: 11-07-2021 COVID-19 VACCINE (4 - Booster for Moderna series) COVID-19 VACCINE (4 - Booster for Moderna series) [facility] Start: 10-28-2021 ADVANCE DIRECTIVE DISCUSSION ADVANCE DIRECTIVE DISCUSSION [facility] Start: 10-28-2021 DEPRESSION ASSESSMENT DEPRESSION ASSESSMENT [facility] Start: 09-13-2021 3 comp foot exam completed DIABETIC FOOT EXAM [facility] Start: 09-13-2021 BP CONTROLLED (<130/80) BP CONTROLLED (<130/80) [facility] Start: 2020 BONE DENSITY BONE DENSITY [facility] Start: 2020 PNEUMOVAX AGE 65 AND OVER WITH 5YR LOOKBACK (#1) PNEUMOVAX AGE 65 AND OVER WITH 5YR LOOKBACK (#1) [facility] Start: 11-04-2018 Urine microalbumin profile DTAP,TDAP,TD (2 - Td or Tdap) [facility] Start: 02-23-2016 SHINGRIX VACCINE (2 of 3) SHINGRIX VACCINE (2 of 3) [facility] Start: 2015 RSV Vaccine (1 - 1-dose 60+ series) RSV Vaccine (1 - 1-dose 60+ series) [facility] Start: 2000 COLOGUARD (FIT-DNA) COLOGUARD (FIT-DNA) [facility] Start: [address] COLONOGRAPHY [facility] Start: 2000 FECAL OCCULT BLOOD FECAL OCCULT BLOOD [facility] Start: 2000 Screening for malignant neoplasm of colon [facility] Start: 2000 SIGMOIDOSCOPY SIGMOIDOSCOPY [facility] Start: 1995 Lipid panel LIPID SCREENING [facility] Start: 1995 Screening for malignant neoplasm of breast MAMMOGRAM SCREENING DISCUSSION [facility] Start: 1976 Screening for malignant neoplasm of cervix CERVICAL CANCER SCREENING DISCUSSION [facility] Start: 1955 Hepatitis C screening HEPATITIS C VIRUS SCREENING [facility] Start: 1955 Potassium [Moles/volume] in Serum or Plasma POTASSIUM [facility] Start: 1955 Screening for osteoporosis DEXA SCAN DISCUSSION [facility] Acute hepatitis 2000 panel - Serum [facility] [id number]. tumor marker [Units/volume] in Serum or Plasma [facility] [id number]. tumor marker [Units/volume] in Serum or Plasma [facility] Bacteria identified in Urine by Culture URINE CULTURE Microbiology Routine Urinary frequency 05/02/2022 10:27 AM EDT [facility] Work Phone: Blood ammonia measurement [facility] Blood ammonia measurement [facility] C reactive protein [Mass/volume] in Serum or Plasma [facility] CALCULI ANALYSIS CALCULI ANALYSI S Lab Routine Kidney stone 09/26/2022 11:17 AM EST [facility] Work Phone: CBC W Auto Different ial panel - Blood [facility] CBC W Auto Different ial panel - Blood [facility] [facility] Comprehensive metabo lic 2000 panel - Serum or Plasma [facility] CT Abdomen [facility] Work Phone: End: 08-28-2025 DBT Breast - bilateral screening [facility] SCREEN[facility] W [facility] Radiology Routine Encounter for screening mammogram for breast cancer 1 Occurrences starting 07/29/2024 until 08/28/2025 [facility] Work Phone: Comment on above: 1 Occurrences starting 07/29/2024 until 08/28/2025 End: 04-07-2023 Dxa bone density study 1/> sites axial skel DXA-AXIAL SKELETON Radiology Routine Screening for osteoporosis Primary ovarian failure 1 Occurrences starting 03/08/2022 until 04/07/2023 [facility] Work Phone: Comment on above: 1 Occurrences starting 03/08/2022 until 04/07/2023 Hepa vaccine adult d ose for intramuscular use HEPATITIS A VACCINE ADULT IM Immunization/Injectio n Routine Need for vaccination Ordered: 01/24/2022 [facility] Work Phone: Comment on above: Ordered: 01/24/2022 Hepb vaccine adult 3 dose schedule for im use HEPATITIS B VACCINE, ADULT AGE 20+, IM Immunization/Injectio n Routine Need for vaccination Ordered: 01/24/2022 [facility] Work Phone: Comment on above: Ordered: 01/24/2022 End: 09-26-2024 [facility] SCREENING [facility] SCREENING Radiology Routine Encounter for screening mammogram for breast cancer 1 Occurrences starting 08/28/2023 until 09/26/2024 [facility] Work Phone: Comment on above: 1 Occurrences starting 08/28/2023 until 09/26/2024 MR Abdomen WO and W contrast IV [facility] Patient referral [facility] Work Phone: Prothrombin time [facility] Prothrombin time [facility] End: 10-19-2023 Screening mammography bi 2-view breast inc cad [facility] SCREENING Radiology Routine Encounter for screening mammogram for breast cancer 1 Occurrences starting 09/19/2022 until 10/19/2023 [facility] Work Phone: Comment on above: 1 Occurrences starting 09/19/2022 until 10/19/2023 Vitamin D, 25-hydrox y measurement [facility] Immunizations Immunization Date Immunization Notes Care Provider Fa jono 09-30-2024 COVID-19 vaccine, unknown product (NON-US) Suzie Lechuga PA-C Work Phone: [facility] 09-30-2024 influenza virus vacc ine, unspecified formulation Suzie Lechuga PA-C Work Phone: [facility] 11-01-2023 typhoid capsular polysaccharide vaccine Suzie Lechuga PA-C Work Phone: [facility] 11-01-2023 yellow fever vaccine Suzie Lechuga PA-C Work Phone: [facility] 10-27-2023 respiratory syncytia l virus (RSV) vaccine, adjuvanted (AREXVY) Billy Culp MD Work Phone: [facility] 08-15-2023 influenza virus vacc ine, unspecified formulation Billy Culp MD Work Phone: [facility] 08-28-2022 influenza, high dose seasonal, preservative-free Billy Culp MD Work Phone: [facility] 08-28-2022 pneumococcal (PCV20) vaccine, 20 valent (PREVNAR 20) Billy Culp MD Work Phone: [facility] 08-28-2022 influenza virus vacc ine, unspecified formulation America Mcclure MD Work Phone: [facility] 07-27-2022 COVID-19 booster vaccine, age 12+ yr, bivalent (MODERNA) Billy Culp MD Work Phone: [facility] 07-20-2022 tetanus toxoid, redu flory diphtheria toxoid, and acellular pertussis vaccine, adsorbed Billy Culp MD Work Phone: [facility] 05-30-2022 zoster vaccine recombinant Billy Culp MD Work Phone: [facility] 02-08-2022 hepatitis A vaccine, adult dosage Ny Nurse Work Phone: [facility] Work Phone: 02-08-2022 hepatitis B vaccine, adult dosage Ny Nurse Work Phone: [facility] Work Phone: 01-19-2022 zoster vaccine recombinant Billy Culp MD Work Phone: [facility] Work Phone: 10-10-2021 hepatitis B vaccine, adult dosage Billy Culp MD Work Phone: [facility] Work Phone: 10-10-2021 hepatitis B vaccine, unspecified formulation Billy Culp MD Work Phone: [facility] 09-27-2021 influenza, high dose seasonal, preservative-free Billy Culp MD Work Phone: [facility] 09-12-2021 COVID-19 vaccine, fu ll dose (MODERNA) Billy Culp MD Work Phone: [facility] Work Phone: 08-10-2021 hepatitis A vaccine, adult dosage Billy Culp MD Work Phone: [facility] 08-10-2021 hepatitis B vaccine, adult dosage Billy Culp MD Work Phone: [facility] 08-10-2021 pneumococcal conjuga te vaccine, 13 valent Billy Culp MD Work Phone: [facility] 01-05-2021 COVID-19 vaccine, fu ll dose (MODERNA) Billy Culp MD Work Phone: [facility] 12-08-2020 COVID-19 vaccine, fu ll dose (MODERNA) Billy Culp MD Work Phone: [facility] 12-29-2015 zoster vaccine, live Billy Culp MD Work Phone: [facility] 09-10-2011 pneumococcal polysaccharide vaccine, 23 valent Billy Culp MD Work Phone: [facility] 11-04-2008 tetanus toxoid, redu flory diphtheria toxoid, and acellular pertussis vaccine, adsorbed Billy Culp MD Work Phone: [facility] Payers Date Payer Category Payer Self-pay [id number] 2020 Managed Care (unspecified) [id number] 2020 Medicare MEDICARE MEDICAR E A AND B [id number] 2020-Present [phone] [address] [address] [place] [address] Medicare [id number] 2020 Medicare [id number] 2020 Private Health Insurance [facility] AARP SUPPLEMENT [id number] 2020-Present [phone] [address] [place] [address] Indemnity [id number] 2020 Private Health Insurance [id number] 2020 Unknown AARP AARP [id number] 2020-Present [address] [place] [address] [id number] 2020 Medicare [id number] 2020 Unknown [id number] 1955 Unknown [id number] 1955 Unknown [id number] Unknown [id number] Unknown [id number] Unknown [id number] 462 Unknown [id number] 462 Unknown [id number] 462 Unknown [id number] 462 Unknown [id number] 462 Unknown [id number] 462 Unknown [id number] 462 Unknown [id number] 462 Social History Date Type Detail Facility Start: 09-10-2011 End: 04-12-2022 Tobacco smoking status NHIS Never smoked tobacco [facility] Start: 08-21-2021 End: 04-07-2025 Alcohol intake Current drinker of alcohol (finding) [facility] Start: 09-06-2020 History SDOH Housing Unable to Pay 2 [facility] Start: 09-06-2020 History SDOH Housing Places Lived 1 [facility] Start: 1955 Sex Assigned At Not on file C [facility] Start: 01-14-2022 End: 09-26-2022 Exposure to SARS-CoV-2 (event) Not sure [facility] Start: 12-12-2021 End: 02-11-2024 Tobacco smoking status MEIS Unknown if ever smoked [facility] Start: 1955 Sex Assigned At Female [facility] Start: 01-30-2022 End: 09-19-2022 History SDOH Housing Unable to Pay 3 [facility] Start: 09-10-2011 End: 04-12-2022 Tobacco use and exposure Smokeless tobacco non-user [facility] Start: 09-19-2022 End: 07-29-2025 History of Social function [facility] Start: 09-19-2022 End: 07-29-2025 Social connection and isolation panel [facility] Start: 09-28-2012 In a typical week, h ow many times do you talk on the telephone with family, friends, or neighbors? Patient refused [facility] Are you now , , , , never or living with a partner? Refused [facility] (I/We) worried wheth er (my/our) food would run out before (I/we) got money to buy more. DK or Refused [facility] Start: 06-20-2023 End: 07-29-2025 Alcohol intake Ex-drinker (finding) [facility] Start: 04-12-2022 Alcohol Comment occassional ; but have quit all together [facility] How often to you hav e a drink containing alcohol? Never [facility] Do you feel stress - tense, restless, nervous, or anxious, or unable to sleep at night because your mind is troubled all the time - these days [OSQ] Not at all [facility] Start: 02-13-2022 End: 02-04-2025 Sex Female (finding) [facility] Start: 02-24-2025 Gender identity Identifies as female gender (finding) [facility] Start: 02-24-2025 Sexual orientation Choose not to dis close [facility] Has the electric, [employer], oil, or water Feide[employer] threatened to shut off services in your home in past 12Mo No [facility] Are you now , , , , never or living with a partner? [facility] (I/We) worried wheth er (my/our) food would run out before (I/we) got money to buy more. Never true [facility] NEGATED: Highlighted row [facility] Medical Equipment Procedure Code Equipment Code Equipment Origin al Text Equipment Identifier Dates EGD, with monitored anesthesia care SUPER 7 SPEEDBAND/ LIGATOR FDA Start: 12-13-2021 EGD, with monitored anesthesia care SUPER 7 SPEEDBAND/ LIGATOR FDA Start: 12-13-2021 EGD, with monitored anesthesia care SUPER 7 SPEEDBAND/ LIGATOR FDA Start: 12-13-2021 EGD, with monitored anesthesia care SUPER 7 SPEEDBAND/ LIGATOR FDA Start: 03-01-2022 EGD, with monitored anesthesia care SUPER 7 SPEEDBAND/ LIGATOR FDA Start: 12-13-2021 EGD, with monitored anesthesia care SUPER 7 SPEEDBAND/ LIGATOR FDA Start: 03-01-2022 EGD, with monitored anesthesia care SUPER 7 SPEEDBAND/ LIGATOR FDA Start: 12-13-2021 EGD, with monitored anesthesia care SUPER 7 SPEEDBAND/ LIGATOR FDA Start: 03-01-2022 EGD, with monitored anesthesia care SUPER 7 SPEEDBAND/ LIGATOR FDA Start: 09-10-2022 EGD, with monitored anesthesia care SUPER 7 SPEEDBAND/ LIGATOR FDA Start: 12-13-2021 EGD, with monitored anesthesia care SUPER 7 SPEEDBAND/ LIGATOR FDA Start: 03-01-2022 EGD, with monitored anesthesia care SUPER 7 SPEEDBAND/ LIGATOR FDA Start: 09-10-2022 EGD, with monitored anesthesia care SUPER 7 SPEEDBAND/ LIGATOR FDA Start: 12-13-2021 EGD, with monitored anesthesia care SUPER 7 SPEEDBAND/ LIGATOR FDA Start: 03-01-2022 EGD, with monitored anesthesia care SUPER 7 SPEEDBAND/ LIGATOR FDA Start: 09-10-2022 EGD, with monitored anesthesia care SUPER 7 SPEEDBAND/ LIGATOR FDA Start: 12-13-2021 EGD, with monitored anesthesia care SUPER 7 SPEEDBAND/ LIGATOR FDA Start: 03-01-2022 EGD, with monitored anesthesia care SUPER 7 SPEEDBAND/ LIGATOR FDA Start: 09-10-2022 EGD, with monitored anesthesia care SUPER 7 SPEEDBAND/ LIGATOR FDA Start: 12-13-2021 EGD, with monitored anesthesia care SUPER 7 SPEEDBAND/ LIGATOR FDA Start: 03-01-2022 EGD, with monitored anesthesia care SUPER 7 SPEEDBAND/ LIGATOR FDA Start: 09-10-2022 EGD, with monitored anesthesia care SUPER 7 SPEEDBAND/ LIGATOR FDA Start: 12-13-2021 EGD, with monitored anesthesia care SUPER 7 SPEEDBAND/ LIGATOR FDA Start: 03-01-2022 EGD, with monitored anesthesia care SUPER 7 SPEEDBAND/ LIGATOR FDA Start: 09-10-2022 EGD, with monitored anesthesia care SUPER 7 SPEEDBAND/ LIGATOR FDA Start: 12-13-2021 EGD, with monitored anesthesia care SUPER 7 SPEEDBAND/ LIGATOR FDA Start: 03-01-2022 EGD, with monitored anesthesia care SUPER 7 SPEEDBAND/ LIGATOR FDA Start: 09-10-2022 EGD, with monitored anesthesia care SUPER 7 SPEEDBAND/ LIGATOR FDA Start: 12-13-2021 EGD, with monitored anesthesia care SUPER 7 SPEEDBAND/ LIGATOR FDA Start: 03-01-2022 EGD, with monitored anesthesia care SUPER 7 SPEEDBAND/ LIGATOR FDA Start: 09-10-2022 EGD, with monitored anesthesia care SUPER 7 SPEEDBAND/ LIGATOR FDA Start: 12-13-2021 EGD, with monitored anesthesia care SUPER 7 SPEEDBAND/ LIGATOR FDA Start: 03-01-2022 EGD, with monitored anesthesia care SUPER 7 SPEEDBAND/ LIGATOR FDA Start: 09-10-2022 EGD, with monitored anesthesia care SUPER 7 SPEEDBAND/ LIGATOR FDA Start: 12-13-2021 EGD, with monitored anesthesia care SUPER 7 SPEEDBAND/ LIGATOR FDA Start: 03-01-2022 EGD, with monitored anesthesia care SUPER 7 SPEEDBAND/ LIGATOR FDA Start: 09-10-2022 EGD, with monitored anesthesia care SUPER 7 SPEEDBAND/ LIGATOR FDA Start: 12-13-2021 EGD, with monitored anesthesia care SUPER 7 SPEEDBAND/ LIGATOR FDA Start: 03-01-2022 EGD, with monitored anesthesia care SUPER 7 SPEEDBAND/ LIGATOR FDA Start: 09-10-2022 EGD, with monitored anesthesia care SUPER 7 SPEEDBAND/ LIGATOR FDA Start: 12-13-2021 EGD, with monitored anesthesia care SUPER 7 SPEEDBAND/ LIGATOR FDA Start: 03-01-2022 EGD, with monitored anesthesia care SUPER 7 SPEEDBAND/ LIGATOR FDA Start: 09-10-2022 Goals Date Patient Goal Desired Activity /State Personal health goal Functional Status Date Assessment Result Facility 01-20-2019 Are you deaf, or do you have serious difficulty hearing No 01/20/2019 11:38 AM Lana Chase RN No [facility] 01-20-2019 Are you blind, or do you have serious difficulty seeing, even when wearing glasses No 01/20/2019 11:38 AM Lana Chase RN No [facility] 01-20-2019 Do you have serious difficulty walking or climbing stairs No 01/20/2019 11:38 AM EDT Lana Gaona RN No [facility] 01-20-2019 Do you have difficul ty dressing or bathing No 01/20/2019 11:38 AM EDT Lana Gaona RN No [facility] 01-20-2019 Because of a physica l, mental, or emotional condition, do you have difficulty doing errands alone such as visiting a physician's office or shopping No 01/20/2019 11:38 AM EDT Lana Gaona RN No [facility] Mental Status Date Assessment Result Facility 01-02-2024 Cognitive function Light Pain [facility] Work Phone: 09-10-2022 Cognitive function Voice/Name [facility] Work Phone: 05-29-2022 Cognitive function Touch/Shaking [facility] Work Phone: 03-01-2022 Cognitive function Voice/Name [facility] Work Phone: 12-13-2021 Cognitive function Voice/Name [facility] Work Phone: 01-20-2019 Because of a physica l, mental, or emotional condition, do you have serious difficulty concentrating, remembering, or making decisions No 01/20/2019 11:38 AM EDT Lana Gaona RN No [facility] Clinical Notes 01-17-2017 to 09-06-2025 America Mcclure MD - 07/29/2025 10:15 AM Zayda Fletcher LPN - 07/29/2025 10:15 AM EDTPatient Instructions Note Date & Type Note Facility 09-06-2025 Note HNO ID: [id number] Author: JODY DURON MA Service: ? Author Type: Business Intern Type: Progress Notes Filed: 09/06/2025 14:29 Note Text: Scan on 09/06/2025 12:31 PM by Provider, External, PA-C: Abd limited [facility] 08-06-2025 Note HNO ID: [id number] Author: ZOE AUGUSTE MA Service: ? Author Type: Business Intern Type: Progress Notes Filed: 08/06/2025 13:41 Note Text: Scan on 08/06/2025 12:11 PM by Provider, External, NANETTE: EDWIN [facility] 07-29-2025 History of Present illness Narrative Clinical Care Team: -Referring Provider for today's consult: Self, Self -Primary Care Provider: Billy Culp History of Present Illness Robbin Morse is a 69 y.o. female who presents to the [facility] today for follow-up regarding her diagnosis of cirrhosis. I have reviewed her medical, surgical, family and social history and have updated medication and allergy information in the computerized patient record. 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 Her liver disease has been complicated by bleeding EV and she is undergoing banding locally She reports she saw her local provider and was concerned about the blood work. She has been having pain in her right side which she notices more when she bends over. She has some LE edema which has been persistent since December. She has been on different doses of lasix with some improvement. She was on lasix daily and now every other day. Dr Garcia with [facility] has been adjusting her medications. She feels significant weakness. Medications Current Outpatient Medications Medication Sig carveDILOL 6.25 MG tablet Take 1 tablet by mouth. Cholecalciferol (Vitamin D3) 50 MCG (1999 UT) tablet (Patient taking differently: 0.5 tablets.) colestipol 1 g tablet Ezetimibe 10 MG tablet Take 1 tablet by mouth daily. faMOTIdine 20 MG tablet Take 1 tablet by mouth 2 times daily. (Patient taking differently: Take 2 tablets by mouth as needed.) ferrous sulfate 324 (65 Fe) MG Tab DR tablet Take 1 tablet by mouth 2 times daily. furOSEmide 20 MG tablet Take 1 tablet by mouth 2 times daily. (Patient taking differently: Take 1 tablet by mouth 2 times daily. 1 20mg every other day) gliMEPIride 4 MG tablet Take 1 tablet by mouth daily with breakfast. Levothyroxine 25 MCG tablet Take 1 tablet by mouth daily. magnesium oxide 400 MG tablet Take 1 tablet by mouth 2 times daily. metFORMIN 500 MG tablet Take 2 tablets by mouth 2 times daily. Spironolactone 25 MG tablet Take 1 tablet by mouth daily. 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 MG tablet Take 1 tablet by mouth 2 times daily. Review of Systems Review of Systems Respiratory: Negative for chest tightness and shortness of breath. Cardiovascular: Positive for leg swelling. Negative for chest pain. Gastrointestinal: Positive for abdominal distention, abdominal pain and diarrhea. Psychiatric/Behavioral: Negative for confusion. Physical Exam BP 120/60 (BP Location: Left arm, BP Position: Sitting) Pulse 77 Wt 60.4 kg (133 lb 1.6 oz) BMI 25.15 kg/m Smoking Status Never Constitutional: Well developed, well nourished female in no acute distress. Oriented to person, place, and time. HEENT: Normocephalic, pupils equal and round, negative for any scleral icterus. Normal appearing oropharynx without any appreciable cervical lymphadenopathy. Abdominal: Soft, TTP RUQ and mildly distended with normal bowel sounds without any appreciable ascites. hepatosplenomegaly. Extremities: No LE edema. Negative for any asterixis. Skin: Negative for any appreciable rashes. Negative for palmar erythema. Laboratory Evaluation I have reviewed her pertinent laboratory data in the computerized patient record. Outside labs reviewed 06/17/25 Na 135 K 4.7 Cl 104 CO2 19 BUN 21 Cr 1.27 AST 39 ALT 30 Alk Phos 100 T bili 0.98 D Bili 0.43 Albumin 3.7 WBC 4.3 Hgb 9.4 Plt 53 INR 1.2 AFP 7.2 Outside labs reviewed 01/29/25 Na 135 K 4.9 Cl 104 CO2 20 BUN 18 Cr 1.25 AST 42 ALT 32 Alk Phos 115 T bili 1.1 Albumin 3.5 WBC 5.4 Hgb 10.1 Plt 75 INR 1.1 Imaging: RUQ US 01/29/25 LIVER: Size: Unremarkable Length: 12.2 cm Echotexture: Coarsened Contour: Normal Lesions: None identified Elastography: EQI Med: 18.9 kPa EQI Med Marquez: 2.49 m/s IQR/Med: 18.5 %* GALLBLADDER: Surgically absent. Page 1 of 2 Name: COMMON BILE DUCT: Dilated measuring up to 13 mm. This most likely secondary to prior cholecystectomy.. PANCREAS: Visualized portions are sonographically unremarkable. Visualized portions of the right kidney are unremarkable. Moderate amount of ascites seen in the right upper quadrant. The spleen is not enlarged. It measures 12.3 cm 5.7 cm 4.8 cm. IMPRESSION: SEVERE HEPATIC FIBROSIS / CIRRHOSIS Reference Values: SRU <1.37 m/s (5.7kPa): No to mild fibrosis 1.37 m/s - 2.2 m/s: Moderate to severe fibrosis >2.2 m/s (15kPa): Significant fibrosis / cirrhosis METAVIR Score F2 or higher: 1.34 m/s (5.7kPa) F3 or higher: 1.55 m/s (7.3kPa) F4: 1.80 m/s (10kPa) Procedures: Colonoscopy 2017 no polyps noted EGD 01/02/2424 Grade I EV and PHG Assessment: Robbin Morse is a 69 y.o. 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 Her liver disease is well compensated other than her EV for which she is undergoing serial banding. Plan - Given her underlying cirrhosis, I recommend HCC screening every 6 months with an abdominal imaging study in conjunction with a serum AFP. She will get her imaging updated locally. - Labs are overall stable and have been the same from 2021 - We will place a referral to nephrology - She will continue to get her banding locally, her scope had only Grade I varices 2023 - Patient's MELD is driven by her renal dysfunction, her liver labs do no indicate she would benefit from a transplant at this time. - Her edema is likely multifactorial- both liver as well as renal dysfunction. We will keep spironolactone 25 mg once per day (due to her higher potassium), lasix will increase from 20 mg every other day to 30 mg daily. Her CKD has been limiting titration. Her hyperkalemia is limiting increases in aldactone. If there is substantial fluid we will consider a paracentesis. - Mirtazapine ordered for appetite stimulant. - She is having 4-5 bowel movements per day and has bowel movements after eating. She will discuss this with her prescribing provider. For follow up, she will return to my clinic in 3 months Sincerely, America Mcclure M.D. Environmental Director of Clinical Medicine Gastroenterology, Hepatology, and Nutrition [facility] [address], [address] [place] [address] This nurse verified pts name and . documented in this encounter [facility] Instructions America Mcclure MD - 07/29/2025 10:15 AM EDT Thank you for coming into clinic today. Your doctor was Dr. America Mcclure. The following are your instructions: - We will schedule am ultrasound to evaluate the cause of your abdominal pain. - We will trial Remeron for you appetite - We will obtain blood work next week. You should also send us a message in 1 week and let us know how your swelling is doing. - Keep track of all the sodium you eat. Write this down. You need to keep this under 2000 mg per day - Please continue to abstain from all alcohol - For pain please use tylenol/acetominophen it is safe in doses of 2000 mg or less. Avoid using NSAIDs for pain, these include ibuprofen, aleve, motrin, and aspirin. - Please avoid raw shellfish and sea food If you have any questions please do not hesitate to contact our clinic, the phone number for the [facility] clinic is [phone], the Fax is [phone] documented in this encounter [facility] 06-17-2025 Evaluation note Diagnosis Onset Date Resolution Cirrhosis chronic June 17 1:24pm Esophageal varices chronic June 17, 2025 1:24pm [facility] Work Phone: 1(732) 647-318508-21-2025 NoteHNO ID: [id number] Author: JODY DURON MA Service: ? Author Type: Business Intern Type: Progress Notes Filed: 09/06/2025 14:29 Note Text: Scan on 06/17/2025 2:39 PM by Elizabeth Roblero PA-C: [facility]08-21-2025 NoteHNO ID: [id number] Author: CAROLYN VARGAS LPN Service: ? Author Type: Licensed Nurse Type: Progress Notes Filed: 06/17/2025 12:26 Note Text: Scan on 06/17/2025 11:19 AM by Elizabeth Roblero PA-C: [facility] History of Present illness Narrative* Carolyn Vargas LPN - 06/17/2025 12:25 PM EDT Scan on 06/17/2025 11:19 AM by Elizabeth Roblero PA-C: Chemistry [facility] NoteHNO ID: [id number] Author: ZOE AUGUSTE MA Service: ? Author Type: Business Intern Type: Progress Notes Filed: 06/09/2025 14:53 Note Text: Outside labs, non-[facility] ordered. Zoe Auguste MA View External Labs - CMP, LIPID, TSH, T4 FREE, CRP, VIT B12, IRON TIBC, FERRITIN [ID [id number]] View External Labs - Hep B Surf Ab, Ammonia [ID [id number]] View External Labs - PT/INR [ID [id number]] View External Labs - A1c [ID [id number]] View External Labs - CBCD [ID [id number]] View External Labs - AFP Tumor Michael [ID [id number]][facility] 06-08-2025 History of Present illness Narrative* Zoe Auguste MA - 06/08/2025 4:27 PM EDT Outside labs, non-[facility] ordered. Zoe Auguste MA View External Labs - CMP, LIPID, TSH, T4 FREE, CRP, VIT B12, IRON TIBC, FERRITIN [ID [id number]] View External Labs - Hep B Surf Ab, Ammonia [ID [id number]] View External Labs - PT/INR [ID [id number]] View External Labs - A1c [ID [id number]] View External Labs - CBCD [ID [id number]] [facility] Instructions* Patient Instructions* Billy Culp MD - 04/06/2025 10:55 AM EDT Please get labs done on or after 09/24/2025 prior to your next visit. Try the Flonase 1 spray each nostril one or two times a day for the ear popping. We discussed your overall health: - You described your health as so-so and tolerable given your current conditions. No new significant concerns were noted. We discussed your ear symptoms: - You reported intermittent plugging in your left ear, which feels like it is stopped up at timesbut does not cause pain. This may be related to Eustachian tube dysfunction, possibly due to allergies. - I recommend trying Flonase (nasal steroid spray) [id number] for the next 2-4 weeks. Use onespray in each nostril once daily, up to twice daily if needed. Shake the bottle before use, prime it before the first use, and aim straight back (not upward) using the opposite hand for the opposite nostril. This technique helps target the nasal pharynx and reduces the risk of nosebleeds. - If symptoms persist after 4 weeks, we may consider a referral to an ENT specialist for further evaluation. We discussed your thyroid management: - Continue your current levothyroxine dosin mcg Saturday through Saturday and 50 mcg (two tablets)on Saturday and Saturday. This adjustment has brought your TSH levels back into the normal range. - A refill for levothyroxine has been sent to [facility]. We discussed your diabetes management: - Your A1c has improved to 7.1 (previously 7.5). This is good progress, but we aim for an A1c below7. - Your fasting blood sugars are well-controlled, but I recommend checking your blood sugar two hours after meals to monitor post-meal levels. Ideally, post- meal blood sugars should stay below 180. - Consider replacing your glucose meter if it is more than three years old, as older meters may provide inaccurate readings. You can purchase a new meter and supplies [id number]. We discussed your bowel habits: - You experience frequent loose stools, which may be related to your liver condition, diet, or medications like Ursodiol (Rebecca). This is not concerning unless it becomes severe or significantly impacts your quality of life. - Adding a fiber supplement, such as psyllium husk capsules or low-sugar fiber gummies, may help regulate stool consistency. Fiber can absorb excess water in loose stools or retain water in firmer stools, promoting more regular bowel movements. We reviewed your recent lab results: - Hemoglobin: 9.8 (slightly below normal but above your baseline of 9.3). - Sodium: 134 (slightly low but not concerning). - Kidney and liver function: Stable. - Cholesterol: Triglycerides 79 (goal <150), HDL 65 (goal >50), LDL 68 (goal <100)--all within target ranges. - A1c: 7.1 (improved from 7.5). - Thyroid function: TSH is now within the normal range. We discussed your decision to decline certain preventive care: - You declined the COVID-19 booster today, as you prefer to receive it closer to the holidays. - You declined a mammogram at this time due to feeling overwhelmed by recent tests. If you change your mind, please contact our office or send a message through [employer], and we can place the or, rafat for you. Follow-up: - Try Flonase for your ear symptoms and monitor for improvement over the next 2- 4 weeks. - Begin checking your blood sugar two hours after meals and consider replacing your glucose meter. - Consider adding a fiber supplement to help regulate your bowel movements. - Continue your current medications as prescribed, including the adjusted levothyroxine dosing. - If your ear symptoms persist or worsen, or if you have any new concerns, please contact our office. Screening schedule The following prevention plan is recommended: Mammogram Screening due on 08/15/2022 BP Controlled (<130/80) due on 09/26/2023 Advance Directive Discussion due on 10/28/2024 Covid-19 Vaccine() due on 11/25/2024 Diabetic Foot Exam due on 04/03/2025 Depression Screening due on 04/03/2025 Anxiety Screening due on 04/03/2025 WHAT YOU CAN DO TO PREVENT FALLS Many falls can be prevented. By making some changes, you can lower your chances of falling. Four things YOU can do to prevent falls for you* and your caregiver 1. Begin a regular exercise program Exercise is one of the most important ways to lower your chances of falling. It makes you stronger and helps you feel better. Exercises that improve balance and coordination (like Tod Chi) are the most helpful. Lack of exercise leads to weakness and increases your chances of falling. Ask your doctor or health care provider about the best type of exercise program for you. 2. Have your health care provider review your medicines Have your doctor or pharmacist review all the medicines you take, even kqzi-egq-oshowzi medicines. As you get older, the way medicines work in your body can change. Some medicines, or combinations of medicines, can make you sleepy or dizzy andcan cause you to fall. 3. Have your vision checked Have your eyes checked by an eye doctor at least once a year. You may be wearing the wrong glasses or have a condition like glaucoma or cataracts that limits your vision. Poor vision can increase your chances of falling. 4. Make your home safer About half of all falls happen at home. To make your home safer: Remove things you can trip over (like papers, books, clothes, and shoes) from stairs and places where you walk. Remove small throw rugs or use double-sided tape to keep the rugs from slipping. Keep items you use often in cabinets you can reach easily without using a step stool. Have grab bars put in next to your toilet and in the tub or shower. Use non-slip mats in the bathtub and on shower floors. Improve the lighting in your home. As you get older, you need brighter lights to see well. Hang light-weight curtains or shades to reduce glare. Have handrails and lights put in on all staircases. Wear shoes both inside and outside the house. Avoid going barefoot or wearing slippers. For more information, contact: Centers for Disease Control and Prevention www.cdc.gov/injury * This information may not apply if you have certain medical conditions. documented in this encounterC[facility]06[facility] History of Present illness Narrative* Billy Culp MD - 04/06/2025 10:40 AM EDT Images from the original note were not included. Robbin Morse is a 69 year old female here for a Medicare wellness visit. Medicare Health Risk Assessment General Health So so Exercise: Minutes/Day Patient declined Exercise: Days/Week Patient declined Alcohol: Daily Use Never Alcohol: Drinks/Day Patient does not drink Alcohol: 6 or more drinks Never Feel off balance Decline Concerns: Teeth/Dentures No Concerns: Sexual function Decline Troubled by feelings Decline Frequency: Eating healthy diet Decline ADLs requiring help Decline Safety precautions in home/vehicle Decline Smoke, vape, chews tobacco No Difficulty hearing Decline Difficulty seeing No Current Providers Specialists: I have reviewed specialist-related care of the patient in the medical record. Medical/Family history review Reviewed and updated problem list, medical/surgical/family/social history, medications, and allergies. Opioid use review Opioid Medications (last 90 days) No data to display Anxiety/Depression screening PHQ-2 Score: 0 (Lower risk for depression) HORACIO-2 Score: 0 (Lower risk for anxiety) Recommendation: no further intervention at this time Cognitive screening Score: 5 Cognitive screening reviewed and No further action needed (score 3-5). Functional Observation Was the patient's Timed Up & Go test unsteady or >= 12 seconds? No Advance Care Planning Surrogate decision maker documented and/or advance directives scanned in chart Measurements BP 116/64 Pulse 75 Resp 16 Ht 154.9 cm (5' 1) Wt 55.3 kg (122 lb) LMP 10/14/2005 SpO2 98% BMI 23.05 kg/m Vision Screening: Follows with optometry/ophthalmology Assessment/Plan Medicare annual wellness visit, subsequent (Z00.00) - Counseled on healthy diet and regular exercise - Fall avoidance information provided - Personalized prevention plan provided See below Chief Complaint Patient presents with: Medicare Wellness Exam HPI Robbin Morse is a 69 year old female who presents here today for Chronic Medical Conditions. and Medicare Annual Visit. patient with Hx of DM 2, Hyperlipidemia, HTN, A. Fib, Valvular heart disease, CKD, Iron Def, thrombocytopenia, Leukopenia, B12 def, Pulm HTN, esophageal varices, SANCHEZ, cirrhosis as well as those reviewed and addressed below and in ROS. Patient sees Ophthalmology last visit 02/2025 Patient sees Cardiology last visit 01/2025 Patient sees GI last visit 01/2025 Robbin describes her overall health as so-so and tolerable, given her multiple medical conditions. She continues to follow with Dr. Groves, Dr. Garcia, and Dr. Mcclure. She had an eye exam on March 03. She declines the 6-month COVID booster today, preferring to receive it closer to the holidays due to potential travel plans. She also declines a mammogram at this time, citing fatigue from numerous tests. She denies recent fevers, frequent cephalalgia, sudden changes in hearing or vision, wheezing, chest pain, palpitations, emesis, diarrhea, heartburn, hematuria, or hematochezia. She also denies recent changes in heat or cold tolerance, increased thirst, syncope, seizures, or tremors. She reports noissues with her nose or throat, no lumps or swelling in her neck, and no skin lesions, rashes, or sores. She has not noticed any easy bruising or bleeding. She experiences dyspnea when climbing a flight of 14 stairs, which usually resolves quickly. She notes that on days with less energy, it takes longer for the dyspnea to subside. She denies leg swelling, attributing this to her use of Lasix. She reports no discomfort with urination or sudden increase in frequency, except when taking Lasix. She reports arthralgia, particularly in her fingers, which she attributes to arthritis. She describes the pain as variable, sometimes feeling like a needle prick. She also reports a sensation of her left ear being plugged up, similar to a child with a cold, allowing her to hear her breath and voice. This sensation is intermittent and not alleviated by the Valsalva maneuver. She has not tried Flonase. She denies tinnitus. She reports loose stools, which she attributes to her liver condition and possibly her medication, Ursodiol. She notes that certain foods trigger loose stools and that she often needs to use the bathroom after eating. She denies taking fiber supplements. She also reports feeling cold all the time, which she attributes to her anemia. She is currently taking levothyroxine, 25 mcg, one tablet Saturday through Saturday and two tablets on Saturday and Saturday, following a dosage adjustment on February 01. She requests a refill. She also takes Ursodiol and Lasix. She monitors her blood glucose levels, with a two-week average of 106 mg/dL and a 30-day average of 108 mg/dL, all fasting. She does not check her blood glucose levels two hours postprandial. She uses a glucose meter that is at least three years old and prefers to purchase a new one [id number]. Past medical history, appointments, medications, allergies reviewed. Previous Medical History PAST MEDICAL HISTORY Diagnosis Date Advance directive discussed with patient 03/08/2022 Discussed 02/2022 Anxiety 06/30/2009 Bilateral leg edema 04/03/2024 Chronic anticoagulation 01/22/2017 Was taken off xarelto with SANCHEZ/cirrhosis and bleeding. Cirrhosis, nonalcoholic (HCC) 07/24/[address] Martinez Closed nondisplaced fracture of left patella 04/03/202309/2022 Diabetic eye exam (HCC) 12/20/2021 Last done 12/19/21 Mild non proliterative retinopathy [facility] Essential hypertension, benign 11/04/2012 Hyperlipidemia, mixed 11/04/2012 Hypothyroidism, acquired 04/03/2024 Iron deficiency anemia due to chronic blood loss 09/19/2018 Leukopenia 12/23/[address] 03/08/2022 DPA: Caro () Living will on file at physician's office 03/08/2022 DPA: Caro () Medicare annual wellness visit, initial 03/08/2022 Medicare Part B: 08/28/2020 Last done: 03/08/2022 Moderate mitral regurgitation 01/22/2017 Multiple gastric ulcers 07/24/202106/2021 SANCHEZ (nonalcoholic steatohepatitis) 07/24/[address] 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 S/P ablation of atrial fibrillation 01/19/2019 Dr. Chaudhry Secondary esophageal varices with bleeding (HCC) 07/24/2021 Seeing Gastro: had banding 06/2021 Secondary esophageal varices without bleeding (HCC) 08/04/2024 Seeing gastro Stage 3b chronic kidney disease (HCC) 08/21/2021 Thrombocytopenia 12/23/2018 Type 2 diabetes mellitus with stage [...] mg tablet Take 2 tablets by mouth two times a day. glimepiride (AMARYL) 4 mg tablet Take 1 tablet by mouth two times a day with meals. ezetimibe (ZETIA) 10 mg tablet Take 1 tablet by mouth once daily. levothyroxine (SYNTHROID) 25 mcg tablet Take 1 tablet by mouth once daily. Take on empty stomach. For thyroid. magnesium oxide (MAG-OX) 400 mg (241.3 mg magnesium) tablet Take 1 tablet by mouth two times a day. spironolactone (ALDACTONE) 50 mg tablet Take 1 tablet by mouth once daily. Take tablet daily Benzonatate 200 mg capsule Take 1 capsule by mouth three times a day as needed. furosemide (LASIX) 20 mg tablet Take 20 mg by mouth two times a day. 1 tablet daily for 2 weeks; then increase to 1 tablet every other day. Per Dr. Garcia. cholecalciferol (VITAMIN D) 1,000 unit tab tablet Take 1,000 Units by mouth once daily. carvedilol (COREG) 6.25 mg tablet Take 1 tablet by mouth twice daily with meals. Per Cardio, Dr. Groves famotidine (PEPCID) 40 mg tablet Take 1 tablet by mouth once daily. Per GI: Friend ursodiol (REBECCA) 250 mg tablet Take 250 mg by mouth twice daily. No current facility-administered medications on file prior to visit. Social History Social History Tobacco Use Smoking status: Never Smokeless tobacco: Never Vaping Use Vaping status: Never Used Substance Use Topics Alcohol use: Yes Comment: occasional Drug use: No Review of Symptoms REVIEW OF SYSTEMS GENERAL: No weight loss, malaise or fevers HEENT: Negative for frequent or significant headaches, No changes in hearing or vision, no nose bleeds or other nasal problems. Has times where her left ear feels plugged but no pain. NECK: Negative for lumps, goiter, pain and significant neck swelling RESPIRATORY: Negative for cough, hemoptysis, wheezing, COPD, dyspnea. Some shortness of breath withclimbing stairs and resolves quickly. CARDIOVASCULAR: Negative for chest pain, leg swelling, hypertension, CHF or palpitations GI: No nausea, vomiting, or diarrhea, No heartburn or reflux symptoms, and no blood : No history of dysuria, frequency or blood MUSCULOSKELETAL: Negative for new or changes in her typical joint pain or swelling, back pain or muscle pain SKIN: Negative for lesions, rash, and itching PSYCH: Negative for sleep disturbance, mood disorder and recent psychosocial stressors HEMATOLOGY/LYMPHOLOGY: Negative for prolonged bleeding, bruising easily or swollen nodes ENDOCRINE: Negative for cold or heat intolerance, polyuria, polydipsia and goiter NEURO: No history of headaches, syncope, paralysis, seizures or tremors SEE HPI EXAM: BP 116/64 Pulse 75 Resp 16 Ht 154.9 cm (5' 1) Wt 55.3 kg (122 lb) LMP 10/14/2005 SpO2 98% BMI 23.05 kg/m Last 5 Encounter Wt Readings: Date: Wt: 04/06/2025 55.3 kg (122 lb) 11/09/2024 57.8 kg (127 lb 6.8 oz) 10/05/2024 55.8 kg (123 lb) 08/04/2024 55.8 kg (123 lb) 06/10/2024 57.6 kg (127 lb) General Appearance: Well appearing, alert, in no acute distress, well-hydrated, well nourished.. Skin: Skin color, texture, turgor normal, no suspicious rashes or lesions. Head: Normocephalic, no masses, lesions, tenderness or abnormalities. Eyes: Anicteric sclera. Pupils are equally round and reactive to light. Extraocular movements are intact. . Ears: External ears, TM's normal, canals clear. Nose/Sinuses: Nares normal, septum midline, mucosa normal, no drainage or sinus tenderness. Oropharynx: Lips, mucosa, and tongue normal, teeth and gums normal, oropharynx normal. Neck: Supple, no adenopathy; thyroid symmetric, normal size, no bruits. Lungs: Lungs clear to auscultation. No wheezing, rhonchi, rales.. Heart: RRR without murmur, gallop, or rubs. No ectopy. Abdomen: Normal abdominal exam, Abdomen soft, non-tender. Bowel sounds normal. No masses, organomegaly. Extremities: No deformities, edema, skin discoloration, clubbing or cyanosis. Good capillary refill. Musculoskeletal: Muscular strength intact, No joint swelling, deformity, or tenderness. Peripheral Pulses: Normal. Neurologic: Gait normal. Reflexes normal and symmetric. Sensation to light touch and crainal nerves2-12 intact.. Diabetic Foot Exam: Feet: Shoes and socks removed, no deformities, ulcers, calluses, normal distal pulses, sensitive to10 gm microfilament, and vibratory exam within normal limits Skin: warm, dry, and no callouses or ulcer Vascular Pulses: Normal SEMMES-LEONOR MONOFILAMENT TESTING Left Foot Right Foot Dorsal Surface Intact Dorsal Surface Intact Plantar Surface Intact Plantar Surface Intact [facility] Maintenance List Medicare Annual Wellness Visit due on 04/03/2025 Mammogram Screening due on 04/06/2026 Covid-19 Vaccine() due on 04/06/2026 HbA1C due on 09/30/2025 Dilated Retinal Exam due on 03/03/2026 Urine Albumin:Creatinine Ratio due on 03/31/2026 LDL Cholesterol due on 03/31/2026 Serum Creatinine due on 03/31/2026 Hemoglobin/Hematocrit due on 03/31/2026 Diabetic Foot Exam due on 04/06/2026 Annual PCP Team Chronic Disease Visit due on 04/06/2026 Depression Screening due on 04/06/2026 Anxiety Screening due on 04/06/2026 Colorectal Cancer Screening due on 10/08/2028 DTaP,Tdap,Td Vaccine(3 - Td or Tdap) due on 07/20/2032 Hepatitis B Vaccine Completed Bone Density Screening Completed Hepatitis A Vaccine Completed Influenza Vaccine Completed Advance Directive Discussion Completed RSV Vaccine Completed Hepatitis C Screening Completed Shingrix Vaccine Completed Pneumococcal Vaccine: 50+ Completed Cervical Cancer Screening Discontinued Data reviewed Latest Ref Rng 03/26/2024 06/03/2024 07/29/2024 09/30/2024 10/05/2024 03/31/2025 WBC 3.70 - 11.00 k/uL 3.90 3.46 (L) 3.70 5.24 RBC 3.90 - 5.20 m/uL 2.94 (L) 2.72 (L) 2.79 (L) 2.68 (L) Hemoglobin 11.5 - 15.5 g/dL 9.9 (L) 9.3 (L) 9.8 (L) 9.3 (L) Hematocrit 36.0 - 46.0 % 29.2 (L) 27.2 (L) 28.3 (L) 26.6 (L) MCV 80.0 - 100.0 fL 99.3 100.0 101.4 (H) 99.3 MCH 26.0 - 34.0 pg 33.7 34.2 (H) 35.1 (H) 34.7 (H) MCHC 30.5 - 36.0 g/dL 33.9 34.2 34.6 35.0 RDW-CV 11.5 - 15.0 % 13.6 13.8 13.3 13.2 Platelet Count 150 - 400 k/uL 59 (L) 58 (L) 49 (L) 55 (L) MPV 9.0 - 12.7 fL 10.3 11.0 9.8 9.9 Neut% % 71.8 62.9 65.4 69.8 Abs Neut (ANC) 1.45 - 7.50 k/uL 2.80 2.18 2.42 3.66 Lymph% % 15.9 18.2 18.1 13.9 Abs Lymph 1.00 - 4.00 k/uL 0.62 (L) 0.63 (L) 0.67 (L) 0.73 (L) [place]% % 8.5 11.3 9.7 10.1 Abs [place] <0.87 k/uL 0.33 0.39 0.36 0.53 Eosin% % 2.8 6.1 5.7 5.0 Abs Eosin <0.46 k/uL 0.11 0.21 0.21 0.26 Baso% % 0.5 1.2 0.8 0.6 Abs Baso <0.11 k/uL <0.03 0.04 0.03 0.03 Immature Gran % % 0.5 0.3 0.3 0.6 IMMATURE GRANS (ABS) <0.10 k/uL <0.03 <0.03 <0.03 0.03 NRBC /100 WBC 0.0 0.0 0.0 0.0 Absolute nRBC <0.01 k/uL <0.01 <0.01 <0.01 <0.01 DTYPE Auto Auto Auto Auto Color Yellow Yellow Yellow Clarity Clear Clear Clear Glucose, Urine Negative Negative Negative Bilirubin, Urine Negative Negative Negative Ketones, Urine Negative Negative Negative Specific [place], Ur 1.005 - 1.030 1.007 1.015 Hemoglobin/Blood,Ur Negative Negative Negative pH, Urine <8.5 7.0 6.0 Protein, Urine Negative Negative Negative Urobilinogen 0.2-1.0 EU/dL 0.2 EU/dL 1.0 EU/dL Nitrites Negative Negative Negative Leukest Negative Negative Negative WBC, Urine 0-5 /HPF 0-5 /HPF 0-5 /HPF RBC, Urine 0-2 /HPF 0-2 /HPF 0-2 /HPF Bacteria Negative /HPF Negative Negative Epithelial Cells /HPF None Seen None Seen Hyaline Cast 0 /LPF 1-3 /LPF ! 0 /LPF Protein, Total 6.3 - 8.0 g/dL 7.0 7.2 7.0 6.8 Albumin 3.9 - 4.9 g/dL 3.6 (L) 3.6 (L) 3.8 (L) 3.4 (L) Calcium 8.5 - 10.2 mg/dL 10.0 10.6 (H) 9.7 Bilirubin, Total 0.2 - 1.3 mg/dL 0.8 0.7 0.8 0.8 Alkaline Phosphatase 34 - 123 U/L 120 105 116 107 AST 13 - 35 U/L 33 27 34 33 ALT 7 - 38 U/L 22 20 27 28 Glucose 74 - 99 mg/dL 102 (H) 137 (H) 125 (H) BUN 7 - 21 mg/dL 18 26 (H) 21 Creatinine 0.58 - 0.96 mg/dL 1.22 (H) 1.21 (H) 1.25 (H) Sodium 136 - 144 mmol/L 133 (L) 137 134 (L) Potassium 3.7 - 5.1 mmol/L 5.0 4.8 4.9 Chloride 98 - 107 mmol/L 103 107 102 CO2 22 - 30 mmol/L 22 19 (L) 21 (L) Anion Gap 8 - 15 mmol/L 8 (L) 11 11 eGFR >=60 mL/min/1.73m 48 (L) 49 (L) 47 (L) Total Cholesterol, Nonfasting <200 mg/dL 142 151 148 Triglycerides, Nonfasting <150 mg/dL 81 82 79 HDL Cholesterol, Nonfasting >39 mg/dL 67 67 65 LDL Cholesterol Calculated, Nonfasting <100 mg/dL 59 68 68 Non HDL Cholesterol, Nonfasting <130 mg/dL 75 84 83 VLDL Cholesterol, Nonfasting <30 mg/dL 16 16 12 Total Chol/HDL Ratio, Nonfasting <5.10 mg/dL 2.12 2.25 2.28 LDL/HDL Ratio, Nonfasting <2.54 mg/dL 0.88 1.01 1.05 Bilirubin, Direct <0.2 mg/dL 0.2 (H) Creatinine, Ur Random (UCRR) 20.0 - 300.0 mg/dL 31.8 117.7 Albumin, Urine Random mg/L <12.0 <12.0 Albumin/Creat Ratio <30 mg/g -- <10 Iron 41 - 186 ug/dL 68 53 TIBC 232 - 386 ug/dL 308 312 Transferrin Saturation 15.0 - 57.0 % 22.1 17.0 Hemoglobin A1C 4.3 - 5.6 % 7.1 (H) 7.5 (H) 7.1 (H) Estimated Average Glucose mg/dL 157 169 157 Vitamin B12 232 - 1,245 pg/mL 407 336 TSH 0.270 - 4.200 mIU/L 5.400 (H) 4.220 (H) 3.210 THYROID PEROXIDASE ANTIBODY <5.6 IU/mL <3.0 Magnesium 1.7 - 2.3 mg/dL 1.7 Assessment and Plan 1. Encounter for Medicare annual wellness exam (Z00.00) Comprehensive review of systems and physical examination performed. Patient reports overall health as tolerable with no significant changes in symptoms. Declined COVID-19 booster today, prefers to receive it closer to the holidays. Declined mammogram at this time due to fatigue from multiple tests. - Discussed importance of regular screenings and vaccinations. - Patient advised to monitor health and report any new or worsening symptoms. - Follow-up as needed. 2. Type 2 diabetes mellitus with stage 3b chronic kidney disease, without long- term current use of insulin (HCC) (E11.22) Stage 3b chronic kidney disease ([facility]) (N18.32) HbA1c improved to 7.1% from 7.5%. Fasting blood glucose levels are well- controlled, but postprandial glucose levels may be contributing to elevated HbA1c. Kidney function remains stable. - Advised patient to monitor blood glucose levels 2 hours postprandially to better assess glycemic control. - Recommended obtaining a new glucose meter and strips. - Continue current management and follow-up with developmental psychologist and sports activities foul judge as scheduled. 3. Nonproliferative diabetic retinopathy without macular edema associated with type 2 diabetes mellitus ([facility]) (E11.3299) Diabetic eye exam ([facility]) (Z01.00) Recent eye exam performed on March 03. - Continue regular ophthalmology follow-ups for management. 4. Essential hypertension, benign (I10) Blood pressure is well-controlled. - Continue current antihypertensive therapy. - Monitor blood pressure regularly. 5. Hyperlipidemia, mixed (E78.2) Lipid panel shows triglycerides at 79 mg/dL, HDL at 65 mg/dL, and LDL at 68 mg/dL, all within target ranges. - Continue current lipid-lowering therapy. 6. Hypothyroidism, acquired (E03.9) TSH levels have normalized following recent adjustment of levothyroxine dosage. - Continue levothyroxine 25 mc tablet Saturday through Saturday, 2 tablets on Saturday and Saturday. - Refill sent to [facility]. - Monitor TSH levels as scheduled. 7. Bilateral leg edema (R60.0) Edema is well-controlled with Lasix. - Continue Lasix as prescribed. - Monitor for any changes in edema. 8. Iron deficiency anemia due to chronic blood loss (D50.0) Anemia due to other cause, not classified (D64.89) Hemoglobin slightly decreased to 9.8 g/dL, but remains above baseline of 9.0 g/dL. No recent episodes of significant bleeding reported. - Continue current management. - Monitor hemoglobin levels regularly. 9. Paroxysmal atrial fibrillation (HCC) (I48.0) Currently stable. - Continue current management. this is done per cardiology - Monitor for any episodes of palpitations or irregular heartbeats. 10. Leukopenia, unspecified type (D72.819) White blood cell count remains stable. - Continue monitoring WBC count. 11. Pulmonary hypertension (HCC) (I27.20) Currently stable. - Continue current management. which is done per cardiology. - Monitor for any signs of worsening, dyspnea or other symptoms. 12. Thrombocytopenia (D69.6) Platelet count remains stable. - Continue monitoring platelet count. 13. Vitamin B12 deficiency (E53.8) Currently stable. - Continue current supplementation. - Monitor B12 levels as scheduled. 14. Cirrhosis, nonalcoholic (HCC) (K74.60) SANCHEZ (nonalcoholic steatohepatitis) (K75.81) Secondary esophageal varices without bleeding (HCC) (I85.10) Liver function tests are stable. Patient experiences frequent loose stools, likely related to livercondition and Ursodiol therapy. - Continue Ursodiol as prescribed. pt follows with hepatology for management. - Discussed potential benefits of fiber supplementation to manage loose stools. - Monitor liver function tests regularly. 15. Eustachian tube dysfunction, left (H69.92) Intermittent sensation of ear fullness in the left ear, likely related to Eustachian tube dysfunction. - Initiate Flonase nasal spray, 1 spray in each nostril once daily, up to twice daily as needed. - Educated patient on proper use of Flonase. - Re-evaluate in 2-4 weeks to assess response to treatment. 16. Advance directive discussed with patient (Z71.89) - up to date in chart 17. Screening for depression (Z13.31) Encounter for screening examination for other mental health and behavioral disorders (Z13.39) No signs of depression or decreased interest in activities reported. F/U 6 months check CMP, Lipid, A1c, CBC and TSH prior. I spent a total of 40 minutes on the date of the service which included preparing to see the patient, [id number] patient care, completing clinical documentation, performing a medically appropriate examination, counseling and educating the patient/family/caregiver and ordering medications, tests, or procedures. Billy Culp MD Recording using [employer] software for draft documentation of the visit was discussed with the patient/authorized insurance claims representative; all questions welcomed and answered. Patient/authorized insurance claims representative agreed to proceed documented in this encounterC[facility] NoteHNO ID: [id number] Author: BILLY CULP MD Service: ? Author Type: Physician Type: Progress Notes Filed: 04/07/2025 07:24 Note Text: Robbin Morse is a 69 year old female here for a Medicare wellness visit. Medicare Health Risk Assessment General Health So so Exercise: Minutes/Day Patient declined Exercise: Days/Week Patient declined Alcohol: Daily Use Never Alcohol: Drinks/Day Patient does not drink Alcohol: 6 or more drinks Never Feel off balance Decline Concerns: Teeth/Dentures No Concerns: Sexual function Decline Troubled by feelings Decline Frequency: Eating healthy diet Decline ADLs requiring help Decline Safety precautions in home/vehicle Decline Smoke, vape, chews tobacco No Difficulty hearing Decline Difficulty seeing No Current Providers Specialists: I have reviewed specialist-related care of the patient in the medical record. Medical/Family history review Reviewed and updated problem list, medical/surgical/family/social history, medications, and allergies. Opioid use review Opioid Medications (last 90 days) No data to display Anxiety/Depression screening PHQ-2 Score: 0 (Lower risk for depression) HORACIO-2 Score: 0 (Lower risk for anxiety) Recommendation: no further intervention at this time Cognitive screening Score: 5 Cognitive screening reviewed and No further action needed (score 3-5). Functional Observation Was the patient's Timed Up AND Go test unsteady or >= 12 seconds? No Advance Care Planning Surrogate decision maker documented and/or advance directives scanned in chart Measurements BP 116/64 Pulse 75 Resp 16 Ht 154.9 cm (5' 1) Wt 55.3 kg (122 lb) LMP 10/14/2005 SpO2 98% BMI 23.05 kg/m? Vision Screening: Follows with optometry/ophthalmology Assessment/Plan Medicare annual wellness visit, subsequent (Z00.00) - Counseled on healthy diet and regular exercise - Fall avoidance information provided - Personalized prevention plan provided See below Chief Complaint Patient presents with: Medicare Wellness Exam HPI Robbin Morse is a 69 year old female who presents here today for Chronic Medical Conditions. and Medicare Annual Visit. patient with Hx of DM 2, Hyperlipidemia, HTN, A. Fib, Valvular heart disease, CKD, Iron Def, thrombocytopenia, Leukopenia, B12 def, Pulm HTN, esophageal varices, SANCHEZ, cirrhosis as well as those reviewed and addressed below and in ROS. Patient sees Ophthalmology last visit 02/2025 Patient sees Cardiology last visit 01/2025 Patient sees GI last visit 01/2025 Robbin describes her overall health as so-so and tolerable, given her multiple medical conditions. She continues to follow with Dr. Groves, Dr. Garcia, and Dr. Mcclure. She had an eye exam on March 03. She declines the 6-month COVID booster today, preferring to receive it closer to the holidays due to potential travel plans. She also declines a mammogram at this time, citing fatigue from numerous tests. She denies recent fevers, frequent cephalalgia, sudden changes in hearing or vision, wheezing, chest pain, palpitations, emesis, diarrhea, heartburn, hematuria, or hematochezia. She also denies recent changes in heat or cold tolerance, increased thirst, syncope, seizures, or tremors. She reports no issues with her nose or throat, no lumps or swelling in her neck, and no skin lesions, rashes, or sores. She has not noticed any easy bruising or bleeding. She experiences dyspnea when climbing a flight of 14 stairs, which usually resolves quickly. She notes that on days with less energy, it takes longer for the dyspnea to subside. She denies leg swelling, attributing this to her use of Lasix. She reports no discomfort with urination or sudden increase in frequency, except when taking Lasix. She reports arthralgia, particularly in her fingers, which she attributes to arthritis. She describes the pain as variable, sometimes feeling like a needle prick. She also reports a sensation of her left ear being plugged up, similar to a child with a cold, allowing her to hear her breath and voice. This sensation is intermittent and not alleviated by the Valsalva maneuver. She has not tried Flonase. She denies tinnitus. She reports loose stools, which she attributes to her liver condition and possibly her medication, Ursodiol. She notes that certain foods trigger loose stools and that she often needs to use the bathroom after eating. She denies taking fiber supplements. She also reports feeling cold all the time, which she attributes to her anemia. She is currently taking levothyroxine, 25 mcg, one tablet Saturday through Saturday and two tablets on Saturday and Saturday, following a dosage adjustment on February 01. She requests a refill. She also takes Ursodiol and Lasix. She monitors her blood glucose levels, with a two-week average of 106 mg/dL and a 30-day average of 108 mg/dL, all fasting. She does not check her (more content not included)... [facility]05-08-2025 Telephone encounter Note* Telephone Encounter - Carolyn Vargas LPN - 03/04/2025 12:19 PM EDT Prescription Refill Information The patient has been identified by name and date of : Yes Caregiver verified no other encounters exist for this prescription request: Yes Caregiver confirmed with patient/requestor that no other refills are due, in the near future, with this provider at this time: Yes The last office visit in the department: 10/05/24 Does the patient have a future office visit with this provider/department: Yes Requested Prescriptions Pending Prescriptions Disp Refills metFORMIN (GLUCOPHAGE) 500 mg tablet 360 tablet 1 Sig: Take 2 tablets by mouth two times a day. glimepiride (AMARYL) 4 mg tablet 180 tablet 1 Sig: Take 1 tablet by mouth two times a day with meals. Carolyn Vargas LPN March 04, 2025 12:19 PM [facility]05-08-2025 Miscellaneous Notes* Telephone Encounter - Carolyn Vargas LPN - 03/04/2025 12:19 PM EDT Prescription Refill Information The patient has been identified by name and date of : Yes Caregiver verified no other encounters exist for this prescription request: Yes Caregiver confirmed with patient/requestor that no other refills are due, in the near future, with this provider at this time: Yes The last office visit in the department: 10/05/24 Does the patient have a future office visit with this provider/department: Yes Requested Prescriptions Pending Prescriptions Disp Refills metFORMIN (GLUCOPHAGE) 500 mg tablet 360 tablet 1 Sig: Take 2 tablets by mouth two times a day. glimepiride (AMARYL) 4 mg tablet 180 tablet 1 Sig: Take 1 tablet by mouth two times a day with meals. Carolyn Vargas LPN March 04, 2025 12:19 PM documented in this encounterCleveland Clinic [facility]05-07-2025 NoteHNO ID: [id number] Author: CAROLYN VARGAS LPN Service: ? Author Type: LICENSED NURSE Type: Progress Notes Filed: 03/03/2025 13:02 Note Text: Scan on 03/03/2025 10:02 AM by ProviderElizabeth PA-C: [facility] History of Present illness Narrative* Carolyn Vargas LPN - 03/03/2025 1:02 PM EDT Scan on 03/03/2025 10:02 AM by Elizabeth Roblero PA-C: Consultation - Ophthalmology documented in this encounterCleveland Clinic [facility]05-01-2025 History of Present illness Narrative* America Mcclure MD - 02/25/2025 9:45 AM EDT Clinical Care Team: -Referring Provider for today's consult: No ref. provider found -Primary Care Provider: Billy Culp History of Present Illness Robbin Morse is a 69 y.o. female who presents to the [facility] today for follow-up regarding [...] and she is undergoing banding locally She broke her foot over the winter when she stepped on her foot wrong. She just returned from [facility]. In June she had an esophageal tear from severe coughing fits. Otherwise, she denies any recent fevers, chills, night sweats, unexpected weight loss, any new visual complaints, headaches, sore throat, heartburn, dysphagia, cough, chest pain, shortness of breath,nausea, vomiting, abdominal pain, diarrhea, constipation, melena, hematochezia, dysuria, hematuria,arthralgias, myalgias, insomnia, or rashes. Medications Current Outpatient Medications Medication Sig carveDILOL 6.25 MG tablet Take 1 tablet by mouth. Cholecalciferol (Vitamin D3) 50 MCG (2000 UT) tablet Ezetimibe 10 MG tablet Take 1 tablet by mouth daily. ferrous sulfate 324 (65 Fe) MG Tab DR tablet Take 1 tablet by mouth 2 times daily. gliMEPIride 4 MG tablet Take 1 tablet by mouth daily with breakfast. magnesium oxide 400 MG tablet Take 1 tablet by mouth 2 times daily. metFORMIN 500 MG tablet Take 2 tablets by mouth 2 times daily. Spironolactone 25 MG tablet Take 1 tablet by mouth daily. 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 MG tablet Take 1 tablet by mouth 2 times daily. Review of Systems Please refer to the above MEKORYUK for her pertinent positive and negatives Physical Exam BP 120/60 (BP Location: Left arm, BP Position: Sitting) Pulse 88 Wt 57.1 kg (125 lb 14.4 oz) SpO2 98% BMI 23.79 kg/m Smoking Status Never Constitutional: Well developed, [...] the computerized patient record. Outside labs reviewed 01/29/25 Na 135 K 4.9 Cl 104 CO2 20 BUN 18 Cr 1.25 AST 42 ALT 32 Alk Phos 115 T bili 1.1 Albumin 3.5 WBC 5.4 Hgb 10.1 Plt 75 INR 1.1 Outside labs reviewed 09/18/22 Na 137 K [...] 2.9 Hgb 9.5 Plt 51 AFP 7.4 02/03/24 Na 138 K 4.2 Cl 105 CO2 25 BUN 17 Cr 1.37 AST 48 ALT 40 Alk Phos 83 T bili 1.3 Albumin 3.2 WBC 4 Hgb 10 Plt 55 INR 1.2 Imaging/Procedures Colonoscopy 2017 no polyps noted EGD 01/02/2424 Grade I EV and PHG RUQ US 01/29/25 LIVER: Size: Unremarkable Length: 12.2 cm Echotexture: Coarsened Contour: Normal Lesions: None identified Elastography: EQI Med: 18.9 kPa EQI Med Marquez: 2.49 m/s IQR/Med: 18.5 %* GALLBLADDER: Surgically absent. Page 1 of 2 Name: COMMON BILE DUCT: Dilated measuring up to 13 mm. This most likely secondary to prior cholecystectomy.. PANCREAS: Visualized portions are sonographically unremarkable. Visualized portions of the right kidney are unremarkable. Moderate amount of ascites seen in the right upper quadrant. The spleen is not enlarged. It measures 12.3 cm 5.7 cm 4.8 cm. IMPRESSION: SEVERE HEPATIC FIBROSIS / CIRRHOSIS Reference Values: SRU <1.37 m/s (5.7kPa): No to mild fibrosis 1.37 m/s - 2.2 m/s: Moderate to severe fibrosis >2.2 m/s (15kPa): Significant fibrosis / cirrhosis METAVIR Score F2 or higher: 1.34 m/s (5.7kPa) F3 or higher: 1.55 m/s (7.3kPa) F4: 1.80 m/s (10kPa) Assessment Robbin Morse is a 69 y.o. female with a history of HTN, [...] She will continue to get her banding locally, her scope had only Grade I varices 2023 - strict 2 gram, low sodium diet. For follow up, she will return to my clinic in 12 months Sincerely, America Mcclure M.D. Environmental Director of Clinical Medicine Gastroenterology, Hepatology, and Nutrition The [address], [address] [place] [address] * Kelly Fletcher LPN - 02/25/2025 9:45 AM EDT This nurse verified pts name and . documented in this encounterOS[facility] Instructions* Patient Instructions* America Mcclure MD - 02/25/2025 9:45 AM EDT Thank you for coming into clinic today. Your doctor was Dr. America Mcclure. The following are yourinstructions: - We will schedule a screening ultrasound in August to look for evidence of liver cancer. We willobtain these every 6 months - Please continue to abstain from all alcohol - For pain please use tylenol/acetominophen it is safe in doses of 2000 mg or less. Avoid using NSAIDs for pain, these include ibuprofen, aleve, motrin, and aspirin. - Please avoid raw shellfish and sea food If you have any questions please do not hesitate to contact our clinic, the phone number for the [facility] clinic is [phone], the Fax is [phone] documented in this encounterPomerene Hospital04-22-2025 NoteHNO ID: [id number] Author: MARIA LUZ DEJESUS MA Service: ? Author Type: Business Intern Type: Progress Notes Filed: 02/16/2025 16:31 Note Text: Scan on 02/09/2025 4:38 PM by Elizabeth Roblero PA-C: Consultation - GI - Dr. Jose Dejesus [facility]04-22-2025 History of Present illness Narrative* Maria Luz Dejesus MA - 02/16/2025 4:31 PM EDT Scan on 02/09/2025 4:38 PM by Elizabeth Roblero PA-C: Consultation - GI - Dr. Jose Dejesus MA documented in this encounterCleveland Clinic [facility]04-15-2025 NoteHNO ID: [id number] Author: MARIA LUZ DEJESUS MA Service: ? Author Type: Business Intern Type: Progress Notes Filed: 02/09/2025 11:22 Note Text: Scan on 02/08/2025 5:30 PM by Elizabeth Roblero PA-C: Consultation - Cardiology Maria Luz Dejesus [facility]04-15-2025 History of Present illness Narrative* Maria Luz Dejesus MA - 02/09/2025 11:22 AM EDT Scan on 02/08/2025 5:30 PM by Elizabeth Roblero PA-C: Consultation - Cardiology Maria Luz Dejesus MA documented in this encounterCleveland Clinic [facility]04-10-2025 Telephone encounter Note * Telephone Encounter - Stephanie Valderrama LPN - 02/04/2025 3:30 PM EDT Prescription Refill Information The patient has been identified by name and date of : Yes Caregiver verified no other encounters exist for this prescription request: Yes Caregiver confirmed with patient/requestor that no other refills are due, in the near future, with this provider at this time: Yes The last office visit in the department: 10/05/24 Does the patient have a future office visit with this provider/department: Yes Requested Prescriptions Pending Prescriptions Disp Refills ezetimibe (ZETIA) 10 mg tablet 90 tablet 1 Sig: Take 1 tablet by mouth once daily. levothyroxine (SYNTHROID) 25 mcg tablet 90 tablet 1 Sig: Take 1 tablet by mouth once daily. Take on empty stomach. For thyroid. Stephanie Valderrama LPN February 04, 2025 3:30 PM [facility]04-10-2025 Miscellaneous Notes* Telephone Encounter - Stephaine Valderrama LPN - 02/04/2025 3:30 PM EDT Prescription Refill Information The patient has been identified by name and date of : Yes Caregiver verified no other encounters exist for this prescription request: Yes Caregiver confirmed with patient/requestor that no other refills are due, in the near future, with this provider at this time: Yes The last office visit in the department: 10/05/24 Does the patient have a future office visit with this provider/department: Yes Requested Prescriptions Pending Prescriptions Disp Refills ezetimibe (ZETIA) 10 mg tablet 90 tablet 1 Sig: Take 1 tablet by mouth once daily. levothyroxine (SYNTHROID) 25 mcg tablet 90 tablet 1 Sig: Take 1 tablet by mouth once daily. Take on empty stomach. For thyroid. Stephanie Valderrama LPN February 04, 2025 3:30 PM documented in this encounterCleveland Clinic [facility]04-09-2025 NoteHNO ID: [id number] Author: MARIA LUZ DEJESUS MA Service: ? Author Type: Business Intern Type: Progress Notes Filed: 02/03/2025 14:45 Note Text: Scan on 01/29/2025 10:52 AM by Provider, External, PA-C: Chemistry Scan on 01/29/2025 11:10 AM by Provider, External, PA-C: Chemistry Scan on 01/29/2025 11:22 AM by Provider External, PA-C: Hematology Scan on 01/29/2025 1:20 PM by Provider External PAJodieC: Ultrasound Maria Luz Dejesus [facility]04-09-2025 History of Present illness Narrative* Maria Luz Dejesus MA - 02/03/2025 2:43 PM EDT Scan on 01/29/2025 10:52 AM by ProviderElizabeth PA-C: Chemistry Scan on 01/29/2025 11:10 AM by Provider External PA-C: Chemistry Scan on 01/29/2025 11:22 AM by Provider External, PA-C: Hematology Scan on 01/29/2025 1:20 PM by ProviderElizabeth, PA-C: Ultrasound Maria Luz Dejesus MA documented in this encounterCleveland Clinic [facility]04-07-2025 Telephone encounter Note * Telephone Encounter - Aurelia Coles MA - 02/01/2025 1:12 PM EDT Pt notified and verbalized understanding Aurelia Coles MA [facility]04-07-2025 Miscellaneous Notes* Telephone Encounter - Aurelia Coles MA - 02/01/2025 1:12 PM EDT Pt notified and verbalized understanding Aurelia Coles MA * Telephone Encounter - Teri Orosco APRN.CNP - 02/01/2025 11:39 AM EDT Please let patient know her TSH increased slightly. I would like her continue 1 tab daily Sat-Sat and on Saturday and Saturday I would like her to take 2 tablets. Recheck TSH in 2 months documented in this encounterCleveland Clinic [facility]04-07-2025 Telephone encounter Note * Telephone Encounter - Teri Orosco APRN.CNP - 02/01/2025 11:39 AM EDT Please let patient know her TSH increased slightly. I would like her continue 1 tab daily Sat-Sat and on Saturday and Saturday I would like her to take 2 tablets. Recheck TSH in 2 months [facility]04-04-2025 Radiology Diagnostic study note [facility] [address] [place] [address] [id number] ABD Limited w/ Elastography MR#: [id number] Acct: [id number] Name: ROBBIN MORSE Rep #: [id number] : 1955 F 69 From: Jeremy Benz MD PCP: Dr. Billy Culp MD Status: REG CLI Study:ABD Limited w/ Elastography Date of Exa m: 01/29/25 Exam# [id number] Ordering Dr: Carolina Garcia MD PROCEDURE: ABD LIMITED W/ ELASTOGRAPHY REASON FOR EXAM: CIRRHOSIS WITH VARICES COMPARISON: Comparison is made with prior study dated September 04, 2023. TECHNIQUE: Right upper quadrant abdominal ultrasound. Michael ElastQ Imaging shear wave elastography for non-invasive assessment of liver tissue stiffness. Michael EPIQ Elite. FINDINGS: LIVER: Size: Unremarkable Length: 12.2 cm Echotexture: Coarsened Contour: Normal Lesions: None identified Elastography: EQI Med: 18.9 kPa EQI Med Marquez: 2.49 m/s IQR/Med: 18.5 %* GALLBLADDER: Surgically absent. COMMON BILE DUCT: Dilated measuring up to 13 mm. This most likely secondary to prior cholecystectomy.. PANCREAS: Visualized portions are sonographically unremarkable. Visualized portions of the right kidney are unremarkable. Moderate amount of ascites seen in the right upper quadrant. The spleen is not enlarged. It measures 12.3 cm 5.7 cm 4.8 cm. US/ABD Limited w/ Elastography IMPRESSION: SEVERE HEPATIC FIBROSIS / CIRRHOSIS Reference Values: SRU <1.37 m/s (5.7kPa): No to mild fibrosis 1.37 m/s - 2.2 m/s: Moderate to severe fibrosis >2.2 m/s (15kPa): Significant fibrosis / cirrhosis METAVIR Score F2 or higher: 1.34 m/s (5.7kPa) F3 or higher: 1.55 m/s (7.3kPa) F4: 1.80 m/s (10kPa) * If the IQR/Med is >30%, the variance in the measurements is a large and the accuracy of the measurement may be in question. Reading Location: [place] [address] CC: Dr. Billy Culp MD; Dr. Stanley Garcia MD ~ Help Desk Coordinator: Signed [facility]03-20-2025 NoteHNO ID: [id number] Author: EUN HOYOS MA Service: ? Author Type: Business Intern Type: Progress Notes Filed: 01/14/2025 10:59 Note Text: POPULATION HEALTH NAVIGATION OUTREACH Action/FYI UPDATED APPOINTMENT NOTES HCC CLOSURE Topic Due (Y or N) Comments Medicare Wellness Y PCP Follow up Colorectal Cancer Screening Controlling Blood Pressure Y A1C HCC Y Flu Vaccine Care Everywhere Reviewed MyChart Activation Updated Appointment Note Y Reason for Outreach Care Gap/HCC or Scheduling Wellness Visits Care Gaps due: Medicare Annual Wellness Visit Controlling Blood Pressure Patient Contacted: Unable or unnecessary to reach patient: HCC related Patient already scheduled Updated appointment notes Navigation Signature: Eun Hoyos MA January 14, 2025 10:57 [facility]03-20-2025 History of Present illness Narrative* Eun Hoyos MA - 01/14/2025 10:57 AM EDT POPULATION HEALTH NAVIGATION OUTREACH Action/FYI \UPDATED APPOINTMENT NOTES HCC CLOSURE Topic Due (Y or N) Comments Medicare Wellness Y PCP Follow up Colorectal Cancer Screening Controlling Blood Pressure Y A1C HCC Y Flu Vaccine Care Everywhere Reviewed MyChart Activation Updated Appointment Note Y Reason for Outreach Care Gap/HCC or Scheduling Wellness Visits Care Gaps due: Medicare Annual Wellness Visit Controlling Blood Pressure Patient Contacted: Unable or unnecessary to reach patient: HCC related Patient already scheduled Updated appointment notes Navigation Signature: Eun Hoyos MA January 14, 2025 10:57 AM documented in this encounterCleveland Clinic Hill[facility]03-20-2025 NotePatient Outreach (NETNAV) ROBBIN MORSE ([id number]) 1955 F Date Time Provider Department 01/14/25 EUN HOYOS NETNAV During your visit today, we recorded the following information about you: Eun Hoyos MA 01/14/2025 10:59 AM Signed POPULATION HEALTH NAVIGATION OUTREACH Action/FYI UPDATED APPOINTMENT NOTES HCC CLOSURE Topic Due (Y or N) Comments Medicare Wellness Y PCP Follow up Colorectal Cancer Screening Controlling Blood Pressure Y A1C HCC Y Flu Vaccine Care Everywhere Reviewed MyChart Activation Updated Appointment Note Y Reason for Outreach Care Gap/HCC or Scheduling Wellness Visits Care Gaps due: Medicare Annual Wellness Visit Controlling Blood Pressure Patient Contacted: Unable or unnecessary to reach patient: HCC related Patient already scheduled Updated appointment notes Navigation Signature: Eun Hoyos MA January 14, 2025 10:57 AM Allergies As of Date: 01/14/2025 Noted Allergy Reaction ACTOS (PIOGLITAZONE HCL) 04/19/2017 [...] (SIMVASTATIN) 09/10/2011 5 - Intolerance Date Reviewed: 10/05/2024 Reviewed by: Carolyn Vargas LPN - Fully Assessed Reason for Visit: Population Health Navigation Outreach [3910] [facility] Prescriptions as of 01/14/2025 - magnesium oxide (MAG-OX) 400 mg (241.3 mg magnesium) tablet Take 1 tablet by mouth two times a day. - glimepiride (AMARYL) 4 mg tablet Take 1 tablet by mouth two times a day with meals. - spironolactone (ALDACTONE) 50 mg tablet Take 1 tablet by mouth once daily. Take tablet daily - ezetimibe (ZETIA) 10 mg tablet Take 1 tablet by mouth once daily. - metFORMIN (GLUCOPHAGE) 500 mg tablet Take 2 tablets by mouth two times a day. - levothyroxine (SYNTHROID) 25 mcg tablet Take 1 tablet by mouth once daily. Take on empty stomach. For thyroid. - Benzonatate 200 mg capsule Take 1 capsule by mouth three times a day as needed. - furosemide (LASIX) 20 mg tablet Take 20 mg by mouth two times a day. 1 tablet daily for 2 weeks; then increase to 1 tablet every other day. Per Dr. Garica. - cholecalciferol (VITAMIN D) 1,000 unit tab tablet Take 1,000 Units by mouth once daily. - carvedilol (COREG) 6.25 mg tablet Take 1 tablet by mouth twice daily with meals. Per Cardio, Dr. Groves - famotidine (PEPCID) 40 mg tablet Take 1 tablet by mouth once daily. Per GI: Dr. Martinez - ursodiol (REBECCA) 250 mg tablet Take 250 mg by mouth twice daily. Problem List As Of Date 01/14/2025 Noted Resolved Anxiety [F41.9] 06/30/2009 12/29/2015 Cervicalgia [...] 07/24/2021 Secondary esophageal varices with bleeding (HCC*07/24/2021 08/04/2024 Stage 3b chronic kidney disease (HCC) [N18.32] 08/21/2021 Diabetic eye exam (HCC) [Z01.00, E11.9] 12/20/2021 Encounter for Medicare annual wellness exam [Z0*03/08/2022 Living will on file at physician's office [Z78.*03/08/2022 Advance directive discussed with patient [Z71.8*03/08/2022 Renal stone [N20.0] 09/29/2022 Closed nondisplaced fracture of left patella [S*04/03/2023 04/03/2023 Medication management [Z79.899] 03/24/2024 Other specified anemias [D64.89] 04/03/2024 Hypothyroidism, acquired [E03.9] 04/03/2024 Mild protein-calorie malnutrition (HCC) [E44.1] 04/03/2024 08/04/2024 Bilateral leg edema [R60.0] 04/03/2024 Secondary esophageal varices without bleeding (*08/04/2024 Encounter Status:Closed by EUN HOYOS on 01/14/25[facility]01-15-2025 Telephone encounter Note* Telephone Encounter - Dora Bazzi OCCA - 11/11/2024 7:39 AM EST Prescription Refill Information The patient has been identified by name and date of : Yes Caregiver verified no other encounters exist for this prescription request: Yes Caregiver confirmed with patient/requestor that no other refills are due, in the near future, with this provider at this time: Yes The last office visit in the department: 10/05/2024 Does the patient have a future office visit with this provider/department: Yes, 04/06/2025 Requested Prescriptions Pending Prescriptions Disp Refills magnesium oxide (MAG-OX) 400 mg (241.3 mg magnesium) tablet 60 tablet 11 Sig: Take 1 tablet by mouth two times a day. LINSEY Mercer November 11, 2024 7:40 AM [facility]01-15-2025 Miscellaneous Notes* Telephone Encounter - Dora Bazzi OCCA - 11/11/2024 7:39 AM EST Prescription Refill Information The patient has been identified by name and date of : Yes Caregiver verified no other encounters exist for this prescription request: Yes Caregiver confirmed with patient/requestor that no other refills are due, in the near future, with this provider at this time: Yes The last office visit in the department: 10/05/2024 Does the patient have a future office visit with this provider/department: Yes, 04/06/2025 Requested Prescriptions Pending Prescriptions Disp Refills magnesium oxide (MAG-OX) 400 mg (241.3 mg magnesium) tablet 60 tablet 11 Sig: Take 1 tablet by mouth two times a day. LINSEY Mercer November 11, 2024 7:40 AM documented in this encounterC[facility]01[facility] History of Present illness Narrative* Andres Quezada RT(R) - 11/09/2024 3:50 PM EST Radiology Service Progress Note PATIENT NAME: Robbin Morse DATE OF SERVICE: November 09, 2024 TIME: 3:49 PM PATIENT IDENTITY VERIFICATION COMPLETED USING TWO (2) IDENTIFIERS: Name and Date of confirmedby patient verbally. FALL SCREENING: Has the patient had 2 falls in the last year or 1 fall with injury or currently using an Ambulatory Assistive Device (Walker, Cane, Wheelchair, Crutches, etc.)? Yes, Patient High Riskfor Falls What interventions were put in place to prevent falls during this visit? Offered Assistance with Transfers/Clothing, Instructed Patient to Remain Seated (Not on Exam Table) Until Exam, and Increased Observations by Caregivers PATIENT GENDER DATA: Assigned female at . status: : No status:NO. PATIENT RELEVANT IMPLANT DATA REVIEWED: Yes PATIENT PRESENTS WITH AN IMPLANTABLE OR ATTACHED BALLAST CLEANING MACHINE OPERATOR: No RADIOLOGY DEPARTMENT: General X-ray: Exam(s) Completed: Lower Extremity X- Ray(s): Foot, Right PERIPHERAL IV DATA: Not applicable SIGNED BY: RT Carey(R) November 09, 2024 3:49 PM documented in this encounterC[facility]25 NoteHNO ID: [id number] Author: ANDRES QUEZADA RT(Everette) Service: ? Author Type: Interior Surface Insulation Worker Type: Progress Notes Filed: 11/09/2024 15:49 Note Text: Radiology Service Progress Note PATIENT NAME: Robbin Morse DATE OF SERVICE: November 09, 2024 TIME: 3:49 PM PATIENT IDENTITY VERIFICATION COMPLETED USING TWO (2) IDENTIFIERS: Name and Date of confirmed by patient verbally. FALL SCREENING: Has the patient had 2 falls in the last year or 1 fall with injury or currently using an Ambulatory Assistive Device (Walker, Cane, Wheelchair, Crutches, etc.)? Yes, Patient High Risk for Falls What interventions were put in place to prevent falls during this visit? Offered Assistance with Transfers/Clothing, Instructed Patient to Remain Seated (Not on Exam Table) Until Exam, and Increased Observations by Caregivers PATIENT GENDER DATA: Assigned female at . status: : No status: NO. PATIENT RELEVANT IMPLANT DATA REVIEWED: Yes PATIENT PRESENTS WITH AN IMPLANTABLE OR ATTACHED BALLAST CLEANING MACHINE OPERATOR: No RADIOLOGY DEPARTMENT: General X-ray: Exam(s) Completed: Lower Extremity X-Ray(s): Foot, Right PERIPHERAL IV DATA: Not applicable SIGNED BY: RT Carey(R) November 09, 2024 3:49 [facility]01-13-2025 NoteHNO ID: [id number] Author: RYAN KIDD MD Service: ? Author Type: Physician Type: Progress Notes Filed: 11/09/2024 16:30 Note Text: Patient presents with: right foot pain: Injured it yesterday when she stood too fast HPI: Right foot pain: Duration: Stood up last night and found her right foot was asleep Location: lateral and bottom of the right foot Character: sharp with weight Radiation: No. Aggravating: standing and walking Relieving: elevation Pain relievers: none Associated: bruising Pertinent negatives: Denies numbness Normal bone marrow density 2021. MEDICATIONS: glimepiride (AMARYL) 4 mg tablet Take 1 tablet by mouth two times a day with meals. spironolactone (ALDACTONE) 50 mg tablet Take 1 tablet by mouth once daily. Take tablet daily ezetimibe (ZETIA) 10 mg tablet Take 1 tablet by mouth once daily. metFORMIN (GLUCOPHAGE) 500 mg tablet Take 2 tablets by mouth two times a day. levothyroxine (SYNTHROID) 25 mcg tablet Take 1 tablet by mouth once daily. Take on empty stomach. For thyroid. Benzonatate 200 mg capsule Take 1 capsule by mouth three times a day as needed. furosemide (LASIX) 20 mg tablet Take 20 mg by mouth two times a day. 1 tablet daily for 2 weeks; then increase to 1 tablet every other day. Per Dr. Garcia. magnesium oxide (MAG-OX) 400 mg (241.3 mg magnesium) tablet Take 1 tablet by mouth two times a day. cholecalciferol (VITAMIN D) 1,000 unit tab tablet Take 1,000 Units by mouth once daily. carvedilol (COREG) 6.25 mg tablet Take 1 tablet by mouth twice daily with meals. Per Cardio, Dr. Groves famotidine (PEPCID) 40 mg tablet Take 1 tablet by mouth once daily. Per GI: Dr. Martinez ursodiol (REBECCA) 250 mg tablet Take 250 mg by mouth twice daily. ALLERGIES: ALLERGIES Allergen Reactions Actos [Pioglitazone* Swelling dyspnea Cardizem [Diltiazem* Other: See Comments states it makes her blood sugar tali high Ferrous Sulfate Other: See Comments Upset stomach Januvia [Sitaglipti* Shortness of Breath chest pain and shortness of breath Lipitor [Atorvastat* Other: See Comments myalgia Lisinopril Other: See Comments elevated creatinine, swelling Pravastatin Other: See Comments Leg cramps Zocor [Simvastatin] Intolerance VITALS: BP 132/68 Pulse 77 Temp 36.8 ?C (98.3 ?F) (Tympanic) Resp 18 Wt 57.8 kg (127 lb 6.8 oz) LMP 10/14/2005 SpO2 100% BMI 24.08 kg/m? PHYSICAL EXAM: GEN: pleasant, alert, no acute distress FOOT/ANKLE: right . Mild Swelling and ecchymosis over the 5th metatarsal. Range of motion: inversion - non-painful, eversion - non-painful, anterior drawer- non-painful. painful to bear weight. limping gait. Palpation: Medial malleolus non-painful, lateral malleolus non-painful, Dorsal proximal midfoot - non-painful, 5th metatarsal painful, posterior calcaneus non-painful ASSESSMENT/PLAN: 1. Nondisplaced fracture of fifth metatarsal bone, right foot, initial encounter for closed fracture - ICD9: 825.25, ICD10: S92.354A (primary diagnosis) 2. Foot pain, right - ICD9: 729.5, ICD10: M79.671 - XR FOOT GENERAL 3V AP/LAT/OBL RIGHT 1. Acute nondisplaced fractures of the base of the fifth metatarsal. 2. Probable acute chip fracture of the dorsal navicular. No tenderness on exam to coincide with navicular fracture. Follow up with ortho or podiatry. - CONSULT TO ORTHOPAEDICS - established with [place] [facility] and will call the hospital for follow up. Placed in post-op shoe. She will use a cane from home to reduce weight bearing. Ryan Kidd, [facility]01-13-2025 History of Present illness Narrative* Ryan Kidd MD - 11/09/2024 3:30 PM EST Patient presents with: right foot pain: Injured it yesterday when she stood too fast HPI: Right foot pain: Duration: Stood up last night and found her right foot was asleep Location: lateral and bottom of the right foot Character: sharp with weight Radiation: No. Aggravating: standing and walking Relieving: elevation Pain relievers: none Associated: bruising Pertinent negatives: Denies numbness Normal bone marrow density 2021. MEDICATIONS: glimepiride (AMARYL) 4 mg tablet Take 1 tablet by mouth two times a day with meals. spironolactone (ALDACTONE) 50 mg tablet Take 1 tablet by mouth once daily. Take tablet daily ezetimibe (ZETIA) 10 mg tablet Take 1 tablet by mouth once daily. metFORMIN (GLUCOPHAGE) 500 mg tablet Take 2 tablets by mouth two times a day. levothyroxine (SYNTHROID) 25 mcg tablet Take 1 tablet by mouth once daily. Take on empty stomach. For thyroid. Benzonatate 200 mg capsule Take 1 capsule by mouth three times a day as needed. furosemide (LASIX) 20 mg tablet Take 20 mg by mouth two times a day. 1 tablet daily for 2 weeks; then increase to 1 tablet every other day. Per Dr. Garcia. magnesium oxide (MAG-OX) 400 mg (241.3 mg magnesium) tablet Take 1 tablet by mouth two times a day. cholecalciferol (VITAMIN D) 1,000 unit tab tablet Take 1,000 Units by mouth once daily. carvedilol (COREG) 6.25 mg tablet Take 1 tablet by mouth twice daily with meals. Per Cardio, Dr. Groves famotidine (PEPCID) 40 mg tablet Take 1 tablet by mouth once daily. Per GI: Friend ursodiol (REBECCA) 250 mg tablet Take 250 mg by mouth twice daily. ALLERGIES: ALLERGIES Allergen Reactions Actos [Pioglitazone* Swelling dyspnea Cardizem [Diltiazem* Other: See Comments states it makes her blood sugar tali high Ferrous Sulfate Other: See Comments Upset stomach Januvia [Sitaglipti* Shortness of Breath chest pain and shortness of breath Lipitor [Atorvastat* Other: See Comments myalgia Lisinopril Other: See Comments elevated creatinine, swelling Pravastatin Other: See Comments Leg cramps Zocor [Simvastatin] Intolerance VITALS: BP 132/68 Pulse 77 Temp 36.8 C (98.3 F) (Tympanic) Resp 18 Wt 57.8 kg (127 lb 6.8 oz) LMP112/15/2004 SpO2 100% BMI 24.08 kg/m PHYSICAL EXAM: GEN: pleasant, alert, no acute distress FOOT/ANKLE: right . Mild Swelling and ecchymosis over the 5th metatarsal. Range of motion: inversion - non-painful, eversion - non-painful, anterior drawer- non-painful. painful to bear weight. limping gait. Palpation: Medial malleolus non-painful, lateral malleolus non-painful, Dorsal proximal midfoot - non-painful, 5th metatarsal painful, posterior calcaneus non-painful ASSESSMENT/PLAN: 1. Nondisplaced fracture of fifth metatarsal bone, right foot, initial encounter for closed fracture - ICD9: 825.25, ICD10: S92.354A (primary diagnosis) 2. Foot pain, right - ICD9: 729.5, ICD10: M79.671 - XR FOOT GENERAL 3V AP/LAT/OBL RIGHT 1. Acute nondisplaced fractures of the base of the fifth metatarsal. 2. Probable acute chip fracture of the dorsal navicular. No tenderness on exam to coincide with navicular fracture. Follow up with ortho or podiatry. - CONSULT TO ORTHOPAEDICS - established with [place] [facility] and will call the hospital for follow up. Placed in post-op shoe. She will use a cane from home to reduce weight bearing. Ryan Kidd MD documented in this encounterC[facility]12-[facility] Telephone encounter Note * Telephone Encounter - Suzie Lechuga PA-C - 10/06/2024 11:10 AM EST The following approved medication requests have been transmitted electronically. Requested Prescriptions Signed Prescriptions Disp Refills glimepiride (AMARYL) 4 mg tablet 180 tablet 1 Sig: Take 1 tablet by mouth two times a day with meals. Authorizing Provider: SUZIE LECHUGA PA-C [facility]12-10-2024 Miscellaneous Notes* Telephone Encounter - Suzie Lechuga PA-C - 10/06/2024 11:10 AM EST The following approved medication requests have been transmitted electronically. Requested Prescriptions Signed Prescriptions Disp Refills glimepiride (AMARYL) 4 mg tablet 180 tablet 1 Sig: Take 1 tablet by mouth two times a day with meals. Authorizing Provider: SUZIE LECHUGA PA-C * Telephone Encounter - Carolyn Vargas LPN - 10/06/2024 10:34 AM EST Pt notified of results and instructions. Pt would like to try the medication increase. She would like 90 day supply sent to [facility] d/t cost. If provider is not comfortable with sending a 90 day supply she is agreeable to use [facility]. No need to contact pt unless additional instructions or rx has been sent to [facility]. Carolyn Vargas LPN * Telephone Encounter - Suzie Lechuga PA-C - 10/06/2024 10:23 AM EST A1c is up to 7.5%. we have 3 options. 1. increase her glimepiride to a full tablet in PM 2. Start an once weekly injectable called ozempic (or other preferred option from insurance) 3. No med changes and have her work on her diet more. Which does she prefer? Suzie Lechuga PA-C documented in this encounterCleveland [facility]12-10-2024 Telephone encounter Note * Telephone Encounter - Carolyn Vargas LPN - 10/06/2024 10:34 AM EST Pt notified of results and instructions. Pt would like to try the medication increase. She would like 90 day supply sent to [facility] d/t cost. If provider is not comfortable with sending a 90 day supply she is agreeable to use [facility]. No need to contact pt unless additional instructions or rx has been sent to [facility]. Carolyn Vargas LPN [facility]12-10-2024 Telephone encounter Note* Telephone Encounter - Suzie Lechuga PA-C - 10/06/2024 10:23 AM EST A1c is up to 7.5%. we have 3 options. 1. increase her glimepiride to a full tablet in PM 2. Start an once weekly injectable called ozempic (or other preferred option from insurance) 3. No med changes and have her work on her diet more. Which does she prefer? Suzie Lechuga PA-C [facility]12-09-2024 NoteHNO ID: [id number] Author: SUZIE LECHUGA PA-C Service: ? Author Type: Physician Bank Teller Type: Progress Notes Filed: 10/05/2024 12:32 Note Text: Chief Complaint Patient presents with: 6 Month Exam HPI Robbin Mosre is a 69 year old female who presents here today for Chronic Medical Conditions.. patient with Hx of DM 2, Hyperlipidemia, HTN, A. Fib, Valvular heart disease, CKD, Iron Def, thrombocytopenia, Leukopenia, B12 def, Pulm HTN, esophageal varices, SANCHEZ, cirrhosis as well as those reviewed and addressed below and in ROS. No specific concerns today Past medical history, appointments, medications, allergies reviewed. Previous Medical History PAST MEDICAL HISTORY Diagnosis Date Advance directive discussed with patient 03/08/2022 Discussed 02/2022 Anxiety 06/30/2009 Bilateral leg edema 04/03/2024 Chronic anticoagulation 01/22/2017 Was taken off xarelto with SANCHEZ/cirrhosis and bleeding. Cirrhosis, nonalcoholic (HCC) 07/24/[address] Martinez Closed nondisplaced fracture of left patella 04/03/202309/2022 Diabetic eye exam (HCC) 12/20/2021 Last done 12/19/21 Mild non proliterative retinopathy ou [facility] Essential hypertension, benign 11/04/2012 Hyperlipidemia, mixed 11/04/2012 Hypothyroidism, acquired 04/03/2024 Iron deficiency anemia due to chronic blood loss 09/19/2018 Leukopenia 12/23/[address] 03/08/2022 DPA: Caro () Living will on file at physician's office 03/08/2022 DPA: Caro () Medicare annual wellness visit, initial 03/08/2022 Medicare Part B: 08/28/2020 Last done: 03/08/2022 Moderate mitral regurgitation 01/22/2017 Multiple gastric ulcers 07/24/202106/2021 SANCHEZ (nonalcoholic steatohepatitis) 07/24/[address] Martinez Other specified anemias 04/03/2024 Paroxysmal atrial fibrillation (HCC) 05/16/2017 Pulmonary hypertension, secondary 01/22/2017 Renal stone 09/29/202208/2022: Analysis: calcium oxalate. S/P ablation of atrial fibrillation 01/19/2019 Dr. Chaudhry Secondary esophageal varices with bleeding (HCC) 07/24/2021 Seeing Gastro: had banding 06/2021 Secondary esophageal varices without bleeding (HCC) 08/04/2024 Seeing gastro Stage 3b chronic kidney disease (HCC) 08/21/2021 [...] on File Prior to Visit Medication Sig ezetimibe (ZETIA) 10 mg tablet Take 1 tablet by mouth once daily. glimepiride (AMARYL) 4 mg tablet Take one tab in the AM and 1/2 a tab in the PM. metFORMIN (GLUCOPHAGE) 500 mg tablet Take 2 tablets by mouth two times a day. levothyroxine (SYNTHROID) 25 mcg tablet Take 1 tablet by mouth once daily. Take on empty stomach. For thyroid. Benzonatate 200 mg capsule Take 1 capsule by mouth three times a day as needed. furosemide (LASIX) 20 mg tablet Take 20 mg by mouth two times a day. 1 tablet daily for 2 weeks; then increase to 1 tablet every other day. Per Dr. Garcia. spironolactone (ALDACTONE) 25 mg tablet Take 25 mg by mouth once daily. Take tablet daily magnesium oxide (MAG-OX) 400 mg (241.3 mg magnesium) tablet Take 1 tablet by mouth two times a day. cholecalciferol (VITAMIN D) 1,000 unit tab tablet Take 1,000 Units by mouth once daily. carvedilol (COREG) 6.25 mg tablet Take 1 tablet by mouth twice daily with meals. Per Cardio, Dr. Groves famotidine (PEPCID) 40 mg tablet Take 1 tablet by mouth once daily. Per GI: Friend ursodiol (REBECCA) 250 mg tablet Take 250 mg by mouth twice daily. No current facility-administered medications on file prior to visit. Social History Social History Tobacco Use Smoking status: Never Smokeless tobac (more content not included)...[facility] 10-05-2024 History of Present illness Narrative* Suzie Lechuga PA-C - 10/05/2024 10:46 AM EST Chief Complaint Patient presents with: 6 Month Exam HPI Robbin Morse is a 69 year old female who presents here today for Chronic Medical Conditions.. patient with Hx of DM 2, Hyperlipidemia, HTN, A. Fib, Valvular heart disease, CKD, Iron Def, thrombocytopenia, Leukopenia, B12 def, Pulm HTN, esophageal varices, SANCHEZ, cirrhosis as well as those reviewed and addressed below and in ROS. No specific concerns today Past medical history, appointments, medications, allergies reviewed. Previous Medical History PAST MEDICAL HISTORY Diagnosis Date Advance directive discussed with patient 03/08/2022 Discussed 02/2022 Anxiety 06/30/2009 Bilateral leg edema 04/03/2024 Chronic anticoagulation 01/22/2017 Was taken off xarelto with SANCHEZ/cirrhosis and bleeding. Cirrhosis, nonalcoholic (HCC) 07/24/[address] Martinez Closed nondisplaced fracture of left patella 04/03/202309/2022 Diabetic eye exam (HCC) 12/20/2021 Last done 12/19/21 Mild non proliterative retinopathy ou [facility] Essential hypertension, benign 11/04/2012 Hyperlipidemia, mixed 11/04/2012 Hypothyroidism, acquired 04/03/2024 Iron deficiency anemia due to chronic blood loss 09/19/2018 Leukopenia 12/23/[address] 03/08/2022 DPA: Caro () Living will on file at physician's office 03/08/2022 DPA: Caro () Medicare annual wellness visit, initial 03/08/2022 Medicare Part B: 08/28/2020 Last done: 03/08/2022 Moderate mitral regurgitation 01/22/2017 Multiple gastric ulcers 07/24/202106/2021 SANCHEZ (nonalcoholic steatohepatitis) 07/24/[address] Martinez Other specified anemias 04/03/2024 Paroxysmal atrial fibrillation (HCC) 05/16/2017 Pulmonary hypertension, secondary 01/22/2017 Renal stone 09/29/202208/2022: Analysis: calcium oxalate. S/P ablation of atrial fibrillation 01/19/2019 Dr. Chaudhry Secondary esophageal varices with bleeding (HCC) 07/24/2021 Seeing Gastro: had banding 06/2021 Secondary esophageal varices without bleeding (HCC) 08/04/2024 Seeing gastro Stage 3b chronic kidney disease (HCC) 08/21/2021 [...] on File Prior to Visit Medication Sig ezetimibe (ZETIA) 10 mg tablet Take 1 tablet by mouth once daily. glimepiride (AMARYL) 4 mg tablet Take one tab in the AM and 1/2 a tab in the PM. metFORMIN (GLUCOPHAGE) 500 mg tablet Take 2 tablets by mouth two times a day. levothyroxine (SYNTHROID) 25 mcg tablet Take 1 tablet by mouth once daily. Take on empty stomach. For thyroid. Benzonatate 200 mg capsule Take 1 capsule by mouth three times a day as needed. furosemide (LASIX) 20 mg tablet Take 20 mg by mouth two times a day. 1 tablet daily for 2 weeks; then increase to 1 tablet every other day. Per Dr. Garcia. spironolactone (ALDACTONE) 25 mg tablet Take 25 mg by mouth once daily. Take tablet daily magnesium oxide (MAG-OX) 400 mg (241.3 mg magnesium) tablet Take 1 tablet by mouth two times a day. cholecalciferol (VITAMIN D) 1,000 unit tab tablet Take 1,000 Units by mouth once daily. carvedilol (COREG) 6.25 mg tablet Take 1 tablet by mouth twice daily with meals. Per Cardio, Dr. Groves famotidine (PEPCID) 40 mg tablet Take 1 tablet by mouth once daily. Per GI: Dr. Martinez ursodiol (REBECCA) 250 mg tablet Take 250 mg by mouth twice daily. No current facility-administered medications on file prior to visit. Social History Social History Tobacco Use Smoking status: Never Smokeless tobacco: Never Substance Use Topics Alcohol use: Yes Comment: occasional Drug use: No Review of Symptoms REVIEW OF SYSTEMS GENERAL: No weight loss, malaise or fevers NECK: Negative for lumps, goiter, pain and significant neck swelling RESPIRATORY: Negative for cough, hemoptysis, wheezing, COPD, dyspnea or shortness of breath CARDIOVASCULAR: Negative for chest pain, leg swelling, hypertension, CHF or palpitations NEURO: No history of headaches, syncope, paralysis, seizures or tremors EXAM: BP 102/60 (BP Site: Right Arm, BP Position: Sitting, BP Cuff Size: Regular Adult) Pulse 81 Temp36.3 C (97.4 F) Resp 14 Wt 55.8 kg (123 lb) LMP 10/14/2005 SpO2 99% BMI 23.24 kg/m General Appearance: Well appearing, alert, in no acute distress, well-hydrated, well nourished.. Neck: Supple, no adenopathy; thyroid symmetric, normal size, no bruits. Lungs: Lungs clear to auscultation. No wheezing, rhonchi, rales.. Heart: RRR without murmur, gallop, or rubs. No ectopy. Extremities: No deformities, edema, skin discoloration, clubbing or cyanosis. Good capillary refill. . Peripheral Pulses: Normal. Health Maintenance List Mammogram Screening due on 08/15/2022 HbA1C due on 11/05/2024 Covid-19 Vaccine() due on 11/25/2024 Dilated Retinal Exam due on 02/04/2025 Urine Albumin:Creatinine Ratio due on 03/26/2025 Diabetic Foot Exam due on 04/03/2025 Depression Screening due on 04/03/2025 Anxiety Screening due on 04/03/2025 Annual PCP Team Chronic Disease Visit due on 08/04/2025 BP Controlled (<130/80) due on 08/04/2025 LDL Cholesterol due on 09/30/2025 Serum Creatinine due on 09/30/2025 Hemoglobin/Hematocrit due on 09/30/2025 Colorectal Cancer Screening due on 10/08/2028 DTaP,Tdap,Td Vaccine(3 - Td or Tdap) due on 07/20/2032 Hepatitis B Vaccine Completed Bone Density Screening Completed Hepatitis A Vaccine Completed Influenza Vaccine Completed Advance Directive Discussion Completed RSV Vaccine Completed Hepatitis C Screening Completed Shingrix Vaccine Completed Pneumococcal Vaccine: 65+ Completed Cervical Cancer Screening Discontinued Data reviewed Latest Ref Rng 09/30/2024 WBC 3.70 - 11.00 k/uL 3.70 RBC 3.90 - 5.20 m/uL 2.79 (L) Hemoglobin 11.5 - 15.5 g/dL 9.8 (L) Hematocrit 36.0 - 46.0 % 28.3 (L) MCV 80.0 - 100.0 fL 101.4 (H) MCH 26.0 - 34.0 pg 35.1 (H) MCHC 30.5 - 36.0 g/dL 34.6 RDW-CV 11.5 - 15.0 % 13.3 Platelet Count 150 - 400 k/uL 49 (L) MPV 9.0 - 12.7 fL 9.8 Neut% % 65.4 Abs Neut (ANC) 1.45 - 7.50 k/uL 2.42 Lymph% % 18.1 Abs Lymph 1.00 - 4.00 k/uL 0.67 (L) [place]% % 9.7 Abs [place] <0.87 k/uL 0.36 Eosin% % 5.7 Abs Eosin <0.46 k/uL 0.21 Baso% % 0.8 Abs Baso <0.11 k/uL 0.03 Immature Gran % % 0.3 IMMATURE GRANS (ABS) <0.10 k/uL <0.03 NRBC /100 WBC 0.0 Absolute nRBC <0.01 k/uL <0.01 DTYPE Auto Protein, Total 6.3 - 8.0 g/dL 7.0 Albumin 3.9 - 4.9 g/dL 3.8 (L) Calcium 8.5 - 10.2 mg/dL 10.6 (H) Bilirubin, Total 0.2 - 1.3 mg/dL 0.8 Alkaline Phosphatase 34 - 123 U/L 116 AST 13 - 35 U/L 34 ALT 7 - 38 U/L 27 Glucose 74 - 99 mg/dL 137 (H) BUN 7 - 21 mg/dL 26 (H) Creatinine 0.58 - 0.96 mg/dL 1.21 (H) Sodium 136 - 144 mmol/L 137 Potassium 3.7 - 5.1 mmol/L 4.8 Chloride 98 - 107 mmol/L 107 CO2 22 - 30 mmol/L 19 (L) Anion Gap 8 - 15 mmol/L 11 eGFR >=60 mL/min/1.73m 49 (L) Total Cholesterol, Nonfasting <200 mg/dL 151 Triglycerides, Nonfasting <150 mg/dL 82 HDL Cholesterol, Nonfasting >39 mg/dL 67 LDL Cholesterol, Nonfasting <100 mg/dL 68 Non HDL Cholesterol, Nonfasting <130 mg/dL 84 VLDL Cholesterol, Nonfasting <30 mg/dL 16 Total Chol/HDL Ratio, Nonfasting <5.10 mg/dL 2.25 LDL/HDL Ratio, Nonfasting <2.54 mg/dL 1.01 TSH 0.270 - 4.200 mIU/L 4.220 (H) Legend: (L) Low (H) High ASSESSMENT/PLAN: 1. Type 2 diabetes mellitus with stage 3b chronic kidney disease, without long- term current use of insulin (HCC) - ICD9: 250.40, 585.3, ICD10: E11.22, N18.32 (primary diagnosis) - Control undetermined, due for labs - Continue current medications - eGFR: 49 Stable - Counseled on avoiding NSAIDs, adequate hydration - HEMOGLOBIN A1C 2. Essential hypertension, benign - ICD9: 401.1, ICD10: I10 - Controlled - Continue current medications - Recommend home blood pressure monitoring, to bring results to next visit - Encouraged sodium restriction, DASH or Mediterranean diet - Recommend regular aerobic exercise 3. Hyperlipidemia, mixed - ICD9: 272.2, ICD10: E78.2 - Controlled - Continue current medications - Counseled on healthy diet and regular exercise 4. Hypothyroidism, acquired - ICD9: 244.9, ICD10: E03.9 - Instructed patient on importance of taking on an empty stomach either first thing in the morning or at bedtime. Patient denies any current s/s of hypothyroid. Discussed options. Recheck levels in 1 month. - THYROID STIMULATING HORMONE - T4 FREE/FREE THYROXINE 5. Hypercalcemia - ICD9: 275.42, ICD10: E83.52 Recheck next month - CALCIUM, TOTAL 6. Paroxysmal atrial fibrillation (HCC) - ICD9: 427.31, ICD10: I48.0 Cont with cardio 7. Pulmonary hypertension (HCC) - ICD9: 416.8, ICD10: I27.20 Continue current management 8. Cirrhosis, nonalcoholic (HCC) - ICD9: 571.5, ICD10: K74.60 Cont with hepatology 9. Secondary esophageal varices without bleeding (HCC) - ICD9: 456.21, ICD10: I85.10 As #8 10. Stage 3b chronic kidney disease (HCC) - ICD9: 585.3, ICD10: N18.32 - eGFR: 49 Stable - Counseled on avoiding NSAIDs, adequate hydration 11. Thrombocytopenia (HCC) - ICD9: 287.5, ICD10: D69.6 Stable chronically Suzie Lechuga PA-C documented in this encounterC[facility] Telephone encounter Note * Telephone Encounter - Aubrie Mares LPN - 09/16/2024 11:29 AM EST Prescription Refill Information The patient has been identified by name and date of : Yes Caregiver verified no other encounters exist for this prescription request: Yes Caregiver confirmed with patient/requestor that no other refills are due, in the near future, with this provider at this time: Yes The last office visit in the department: 08/04/24 Does the patient have a future office visit with this provider/department: Yes 10/05/24 Requested Prescriptions Pending Prescriptions Disp Refills ezetimibe (ZETIA) 10 mg tablet 90 tablet 1 Sig: Take 1 tablet by mouth once daily. glimepiride (AMARYL) 4 mg tablet 135 tablet 1 Sig: Take one tab in the AM and 1/2 a tab in the PM. metFORMIN (GLUCOPHAGE) 500 mg tablet 360 tablet 1 Sig: Take 2 tablets by mouth two times a day. levothyroxine (SYNTHROID) 25 mcg tablet 90 tablet 1 Sig: Take 1 tablet by mouth once daily. Take on empty stomach. For thyroid. Aubrie Mares LPN September 16, 2024 11:30 AM [facility]11-20-2024 Miscellaneous Notes* Telephone Encounter - Aubrie Mares LPN - 09/16/2024 11:29 AM EST Prescription Refill Information The patient has been identified by name and date of : Yes Caregiver verified no other encounters exist for this prescription request: Yes Caregiver confirmed with patient/requestor that no other refills are due, in the near future, with this provider at this time: Yes The last office visit in the department: 08/04/24 Does the patient have a future office visit with this provider/department: Yes 10/05/24 Requested Prescriptions Pending Prescriptions Disp Refills ezetimibe (ZETIA) 10 mg tablet 90 tablet 1 Sig: Take 1 tablet by mouth once daily. glimepiride (AMARYL) 4 mg tablet 135 tablet 1 Sig: Take one tab in the AM and 1/2 a tab in the PM. metFORMIN (GLUCOPHAGE) 500 mg tablet 360 tablet 1 Sig: Take 2 tablets by mouth two times a day. levothyroxine (SYNTHROID) 25 mcg tablet 90 tablet 1 Sig: Take 1 tablet by mouth once daily. Take on empty stomach. For thyroid. Aubrie Mares LPN September 16, 2024 11:30 AM documented in this encounterC[facility]10-29-2024 History of Present illness Narrative* Carolyn Vargas LPN - 08/25/2024 9:21 AM EDT Scan on 08/21/2024 4:39 PM by Provider, NANETTE Johnson: Echo documented in this encounterC[facility]10-23-2024 History of Present illness Narrative* Carolyn Vargas LPN - 08/19/2024 11:51 AM EDT Scan on 08/19/2024 10:40 AM by Elizabeth Roblero PA-C: Miscellaneous Lab documented in this encounterCleveland [facility]10-17-2024 History of Present illness Narrative* Irma Clay RN - 08/13/2024 2:42 PM EDT Transitional Care Management (TCM) Follow-Up Note PCP Update / Actionable Items N/A - No specialty updates needed Patient Source: [id number] (OON) Discharge Outreach Summary: Pt states she does not want any calls for follow up , will only communicate directly to her PCP. Patient discharged from [facility] Discharge date: 07/21/24 Admitted for: Hematemesis Readmission Risk: n/a Value-Based Contract: ACO Contact: Contact made with patient: Yes Spoke to: Patient Validation: The patient was identified by name and date of - NO , declines to validate date of .Pt I'd like to get an update on how you're doing since our last phone call. Is now a good time to talk? No, the patient declines phone calls. States she is fine and does not want anymore calls for any follow up with TCM . Irma Clay RN August 13, 2024 2:49 PM documented in this encounterC[facility]10-16-2024 History of Present illness Narrative* Carolyn Vargas LPN - 08/12/2024 10:48 AM EDT Scan on 08/12/2024 10:04 AM by Elizabeth Roblero PA-C: Hematology Scan on 08/12/2024 10:02 AM by Elizabeth Roblero PA-C: Chemistry documented in this encounterC[facility]10-08-2024 History of Present illness Narrative* Billy Culp MD - 08/04/2024 11:20 AM EDT Chief Complaint Patient presents with: Hospital Follow Up HPI Robbin Morse is a 68 year old female who presents here today for Hospital Discharge Follow up.. Patient was admitted to [facility] ER on 07/19/2024 for Upper GI bleed. Patient with Hx of liver cirrhosiswith esophageal varices. Patient also following up with [facility]. Appointment was the of this indy and then they cancelled and moved to August 18. Patient was to follow up in 1 week to monitor her hemoglobin levels stay stable. Patient had had COVID 07/03/2024 and for few weeks after had a persistent cough that is still present. She still has reduced apatite and no taste. On 07/21/2024 she awoke at 3 AM and had had three bouts of emesis with hematemesis. She had no abdominal pain and no blood in her stool. Patient had an EGD that showed a anitra chakraborty tear and that was treated. On day of discharge she was stable and her Hg was 8.3 and 8.6. Gastro was comfortable with her going home. Patient still does not have a lot of energy and still has the persistent cough and poor apatite. The diarrhea has stopped especially if she does no take the Pepcid or the Protonix. Past medical history, appointments, medications, allergies reviewed. Previous Medical History PAST MEDICAL HISTORY Diagnosis Date Advance directive discussed with patient 03/08/2022 Discussed 02/2022 Anxiety 06/30/2009 Bilateral leg edema 04/03/2024 Chronic anticoagulation 01/22/2017 Was taken off xarelto with SANCHEZ/cirrhosis and bleeding. Cirrhosis, nonalcoholic (HCC) 07/24/[address] Martinez Closed nondisplaced fracture of left patella 04/03/202309/2022 Diabetic eye exam (HCC) 12/20/2021 Last done 12/19/21 Mild non proliterative retinopathy ou [facility] Essential hypertension, benign 11/04/2012 Hyperlipidemia, mixed 11/04/2012 Hypothyroidism, acquired 04/03/2024 Iron deficiency anemia due to chronic blood loss 09/19/2018 Leukopenia 12/23/[address] 03/08/2022 DPA: Caro () Living will on file at physician's office 03/08/2022 DPA: Caro () Medicare annual wellness visit, initial 03/08/2022 Medicare Part B: 08/28/2020 Last done: 03/08/2022 Moderate mitral regurgitation 01/22/2017 Multiple gastric ulcers 07/24/202106/2021 SANCHEZ (nonalcoholic steatohepatitis) 07/24/[address] Martinez Other specified anemias 04/03/2024 Paroxysmal atrial fibrillation (HCC) 05/16/2017 Pulmonary hypertension, secondary 01/22/2017 Renal stone 09/29/202208/2022: Analysis: calcium oxalate. S/P ablation of atrial fibrillation 01/19/2019 Dr. Chaudhry Secondary esophageal varices with bleeding (HCC) 07/24/2021 Seeing Gastro: had banding 06/2021 Stage 3b chronic kidney disease (HCC) 08/21/2021 Thrombocytopenia ([facility]) 12/23/2018 Type 2 diabetes mellitus with stage 3 chronic kidney disease, without long-term current use of insulin ([facility]) 01/17/2017 Type II or unspecified type [...] on File Prior to Visit Medication Sig furosemide (LASIX) 20 mg tablet Take 20 mg by mouth two times a day. 1 tablet daily for 2 weeks; then increase to 1 tablet every other day. Per Dr. Garcia. spironolactone (ALDACTONE) 25 mg tablet Take 25 mg by mouth once daily. Take tablet daily ezetimibe (ZETIA) 10 mg tablet Take 1 tablet by mouth once daily. glimepiride (AMARYL) 4 mg tablet Take one tab in the AM and 1/2 a tab in the PM. metFORMIN (GLUCOPHAGE) 500 mg tablet Take 2 tablets by mouth two times a day. levothyroxine (SYNTHROID) 25 mcg tablet Take 1 tablet by mouth once daily. Take on empty stomach. For thyroid. magnesium oxide (MAG-OX) 400 mg (241.3 mg magnesium) tablet Take 1 tablet by mouth two times a day. cholecalciferol (VITAMIN D) 1,000 unit tab tablet Take 1,000 Units by mouth once daily. carvedilol (COREG) 6.25 mg tablet Take 1 tablet by mouth twice daily with meals. Per Cardio, Dr. Groves famotidine (PEPCID) 40 mg tablet Take 1 tablet by mouth once daily. Per GI: Friend ursodiol (REBECCA) 250 mg tablet Take 250 mg by mouth twice daily. No current facility-administered medications on file prior to visit. Social History Social History Tobacco Use Smoking status: Never Smokeless tobacco: Never Substance Use Topics Alcohol use: Yes Comment: occasional Drug use: No Review of Symptoms REVIEW OF SYSTEMS See HPI EXAM: BP 114/52 (BP Site: Right Arm, BP Position: Sitting, BP Cuff Size: Regular Adult) Pulse 74 Resp16 Wt 55.8 kg (123 lb) LMP 10/14/2005 BMI 23.24 kg/m General Appearance: Well appearing, alert, in no acute distress, well-hydrated, well nourished.. Abdomen: Normal abdominal exam, Abdomen soft, non-tender. Bowel sounds normal. No masses, organomegaly. Health Maintenance List Mammogram Screening due on 08/15/2022 Influenza Vaccine(1) due on 06/28/2024 Covid-19 Vaccine( season) due on 06/28/2024 HbA1C due on 11/05/2024 Dilated Retinal Exam due on 02/04/2025 Urine Albumin:Creatinine Ratio due on 03/26/2025 LDL Cholesterol due on 03/26/2025 Serum Creatinine due on 03/26/2025 Diabetic Foot Exam due on 04/03/2025 Depression Screening due on 04/03/2025 Anxiety Screening due on 04/03/2025 Annual PCP Team Chronic Disease Visit due on 06/10/2025 BP Controlled (<130/80) due on 06/10/2025 Hemoglobin/Hematocrit due on 07/29/2025 Colorectal Cancer Screening due on 10/08/2028 DTaP,Tdap,Td Vaccine(3 - Td or Tdap) due on 07/20/2032 Hepatitis B Vaccine Completed Bone Density Screening Completed Hepatitis A Vaccine Completed Advance Directive Discussion Completed RSV Vaccine Completed Hepatitis C Screening Completed Shingrix Vaccine Completed Pneumococcal Vaccine: 65+ Completed Cervical Cancer Screening Discontinued Data reviewed Latest Ref Rng 04/03/2023 09/16/2023 03/26/2024 07/29/2024 WBC 3.70 - 11.00 k/uL 4.02 3.33 (L) 3.90 3.46 (L) RBC 3.90 - 5.20 m/uL 3.18 (L) 2.84 (L) 2.94 (L) 2.72 (L) Hemoglobin 11.5 - 15.5 g/dL 10.8 (L) 9.5 (L) 9.9 (L) 9.3 (L) Hematocrit 36.0 - 46.0 % 32.3 (L) 28.2 (L) 29.2 (L) 27.2 (L) MCV 80.0 - 100.0 fL 101.6 (H) 99.3 99.3 100.0 MCH 26.0 - 34.0 pg 34.0 33.5 33.7 34.2 (H) MCHC 30.5 - 36.0 g/dL 33.4 33.7 33.9 34.2 RDW-CV 11.5 - 15.0 % 13.1 13.0 13.6 13.8 Platelet Count 150 - 400 k/uL 66 (L) 45 (L) 59 (L) 58 (L) MPV 9.0 - 12.7 fL 10.9 9.6 10.3 11.0 Neut% % 64.6 64.9 71.8 62.9 Abs Neut (ANC) 1.45 - 7.50 k/uL 2.60 2.16 2.80 2.18 Lymph% % 19.9 21.0 15.9 18.2 Abs Lymph 1.00 - 4.00 k/uL 0.80 (L) 0.70 (L) 0.62 (L) 0.63 (L) [place]% % 10.0 9.0 8.5 11.3 Abs [place] <0.87 k/uL 0.40 0.30 0.33 0.39 Eosin% % 4.5 4.2 2.8 6.1 Abs Eosin <0.46 k/uL 0.18 0.14 0.11 0.21 Baso% % 0.5 0.6 0.5 1.2 Abs Baso <0.11 k/uL <0.03 <0.03 <0.03 0.04 Immature Gran % % 0.5 0.3 0.5 0.3 IMMATURE GRANS (ABS) <0.10 k/uL <0.03 <0.03 <0.03 <0.03 NRBC /100 WBC 0.0 0.0 0.0 0.0 Absolute nRBC <0.01 k/uL <0.01 <0.01 <0.01 <0.01 DTYPE Auto Auto Auto Auto A/P ASSESSMENT/PLAN: 1. Anitra-Jackson tear - ICD9: 530.7, ICD10: K22.6 (primary diagnosis) - resolved after Tx per gastro. 2. Anemia, unspecified type - ICD9: 285.9, ICD10: D64.9 - numbers are improved and almost back to her base line.. 3. 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 - discussed steroid but feel the risk of a bleeding out ways the benefit. Will place on - BENZONATATE 200 MG CAPSULE every 8 hrs as needed. Requested Prescriptions Signed Prescriptions Disp Refills Benzonatate 200 mg capsule 45 capsule 1 Sig: Take 1 capsule by mouth three times a day as needed. Billy Culp MD I spent a total of 30 minutes on the date of the service which included preparing to see the patient, [id number] patient care, completing clinical documentation, performing a medically appropriate examination, counseling and educating the patient/family/caregiver and ordering medications, tests, or procedures. documented in this encounterC[facility]09-26-2024 Telephone encounter Note * Telephone Encounter - Carolyn Vargas LPN - 07/23/2024 12:43 PM EDT This has been addressed in a duplicate msg sent yesterday by pt. Will close this message. Carolyn Vargas LPN [facility]09-26-2024 Miscellaneous Notes* Telephone Encounter - Carolyn Vargas LPN - 07/23/2024 12:43 PM EDT This has been addressed in a duplicate msg sent yesterday by pt. Will close this message. Carolyn Vargas LPN documented in this encounterC[facility]09-26-2024 Telephone encounter Note * Telephone Encounter - Aletha Woods RN - 07/23/2024 10:18 AM EDT Pt called and is notified of providers message and instructions. Pt upset and didn't want to make appointment. She said she had to speak directly to providers office, I let her know I could help her.She just wanted labs ordered. Pt scheduled with Dr Culp 07/29/24 at 7 pm. I told her could ask himif I could schedule her earlier on another day, but the Pt was upset and said she would just take that appointment. She wants provider to order labs before appointment. I told her I could ask provider and we could call her back and let her know, but provider said he would discuss care and f/u at appointment. I told her he may not order labs until appointment, and the lab would be gone by 7 pm. Ptdid not want us to ask provider about appts earlier in the day, PCP has PCP flex spots on 07/27/24 could get her in at 1 or 120, or 07/30/24 at 1120. She said she didn't want to keep playing phone tag.Pt was very upset that provider didn't answer her back through [employer]. She was crying and saying how Maria Luz always gets back to her immediately, I let her know that she is not in today. Aletha Woods RN [facility]09-26-[facility] Miscellaneous Notes* Telephone Encounter - Aletha Woods RN - 07/23/2024 10:18 AM EDT Pt called and is notified of providers message and instructions. Pt upset and didn't want to make appointment. She said she had to speak directly to providers office, I let her know I could help her.She just wanted labs ordered. Pt scheduled with Dr Culp 07/29/24 at 7 pm. I told her could ask himif I could schedule her earlier on another day, but the Pt was upset and said she would just take that appointment. She wants provider to order labs before appointment. I told her I could ask provider and we could call her back and let her know, but provider said he would discuss care and f/u at appointment. I told her he may not order labs until appointment, and the lab would be gone by 7 pm. Ptdid not want us to ask provider about appts earlier in the day, PCP has PCP [facility] on 07/27/24 could get her in at 1 or 120, or 07/30/24 at 1120. She said she didn't want to keep playing phone tag.Pt was very upset that provider didn't answer her back through [employer]. She was crying and saying how Maria Luz always gets back to her immediately, I let her know that she is not in today. Aletha Woods RN * Telephone Encounter - Billy Culp MD - 07/22/2024 7:59 PM EDT Please advise patient she needs to keep the appt as arranged to proceed with care and f/u. The other option is that since this was an issue related to her chronic liver disease she can request lab work from Dr. Martinez and f/u with him. * Telephone Encounter - Ree Yoder LPN - 07/22/2024 1:25 PM EDT Patient last seen by you on 06/10. Please see patients request. Please advise. Ree Yoder LPN documented in this encounterCleveland Clinic [facility]09-26-2024 History of Present illness Narrative* Abida York MA - 07/23/2024 8:52 AM EDT Scan on 07/21/2024 4:23 PM by ProviderElizabeth PA-C: Discharge Summary documented in this encounterCleveland Clinic [facility]09-25-2024 Telephone encounter Note * Telephone Encounter - Billy Culp MD - 07/22/2024 7:59 PM EDT Please advise patient she needs to keep the appt as arranged to proceed with care and f/u. The other option is that since this was an issue related to her chronic liver disease she can request lab work from Dr. Martinez and f/u with him. [facility] Telephone encounter Note* Telephone Encounter - Ree Yoder LPN - 07/22/2024 1:25 PM EDT Patient last seen by you on 06/10. Please see patients request. Please advise. Ree Yoder LPN [facility]09-24-[facility] History of Present illness Narrative* Maria Luz Dejesus MA - 07/21/2024 4:36 PM EDT Scan on 07/20/2024 5:20 PM by ProviderElizabeth PA-C: Consultation - GI Scan on 07/20/2024 5:23 PM by ProviderElizabeth PA-C: EGD Patient is scheduled for hospital follow up\. Maria Luz Dejesus MA documented in this encounterC[facility]2024 History of Present illness Narrative* Carolyn Vargas LPN - 07/20/2024 7:22 AM EDT Scan on 07/19/2024 2:19 PM by ProviderElizabeth PA-C: Consultation - Emergency Medicine Scan on 07/19/2024 3:27 PM by Elizabeth Roblero PA-C documented in this encounterCleveland Clinic [facility]08-14-2024 History of Present illness Narrative* Billy Culp MD - 06/10/2024 9:40 AM EDT Chief Complaint Patient presents with: Follow Up HPI Robbin Morse is a 68 year old female who presents here today for follow up on edema/hypothyroid. Patient was started on: synthroid 25 mcg a day and was to check TSH and thyroid peroxidase antibodyin [address] Garcia her liver specialist started her on lasix 20 mg a ay for two weeks and is now taking one every other day. This has helped with her leg swelling. Has not had any issues with the levothyroxine. Patient's weight 141 today was 127 lb Past medical history, appointments, medications, allergies reviewed. Previous Medical History PAST MEDICAL HISTORY 03/08/2022: Advance directive discussed with patient Comment: Discussed 02/202206/30/2009: Anxiety 01/22/2017: Chronic anticoagulation Comment: Was taken off xarelto with SANCHEZ/cirrhosis and bleeding. 07/24/2021: Cirrhosis, nonalcoholic (HCC) Comment: Seeing Dr. Martinez 04/03/2023: Closed nondisplaced fracture of left patella Comment: 09/202212/20/2021: Diabetic eye exam (HCC) Comment: Last done 12/19/21 Mild non proliterative retinopathy ou [facility] 11/04/2012: Essential hypertension, benign 11/04/2012: Hyperlipidemia, mixed 09/19/2018: Iron deficiency anemia due to chronic blood loss 12/23/2018: Leukopenia 03/08/2022: Living will in place Comment: DPA: Caro () 03/08/2022: Living will on file at physician's office Comment: DPA: Caro () 03/08/2022: Medicare annual wellness visit, initial Comment: Medicare Part B: 08/28/2020 Last done: 03/08/2022 01/22/2017: Moderate mitral regurgitation 07/24/2021: Multiple gastric ulcers Comment: 06/202107/24/2021: SANCHEZ (nonalcoholic steatohepatitis) Comment: Seeing Dr. Martinez 04/03/2024: Other specified anemias 05/16/2017: Paroxysmal atrial fibrillation (HCC) 01/22/2017: Pulmonary hypertension, secondary 09/29/2022: Renal stone Comment: 08/2022: Analysis: calcium oxalate. 01/19/2019: S/P ablation of atrial fibrillation Comment: Dr. Chaudhry 07/24/2021: Secondary esophageal varices with bleeding (HCC) Comment: Seeing Gastro: had banding 06/202108/21/2021: Stage 3b chronic kidney disease (HCC) 12/23/2018: Thrombocytopenia (HCC) 01/17/2017: Type 2 diabetes mellitus with stage 3 chronic kidney disease, without long-term current use of insulin (HCC) 06/30/2009: Type II or unspecified type diabetes mellitus without mention of complication, not stated as uncontrolled 12/24/2018: Vitamin B12 deficiency Previous Surgical History PAST SURGICAL HISTORY 10/08/2018: COLONOSCOPY FLX DX W/COLLJ SPEC WHEN PFRMD Comment: repeat in 5 years due to family history 07/24/2021: ESOPHAGUS ENDOSCOPY W VARICES BANDING Comment: Dr. Martinez No date: PAST SURGICAL HISTORY OF Comment: c section x 2 No date: REMOVAL GALLBLADDER Family History FAMILY HISTORY Problem [...] on File Prior to Visit Medication Sig spironolactone (ALDACTONE) 25 mg tablet Take 25 mg by mouth once daily. Take tablet daily ezetimibe (ZETIA) 10 mg tablet Take 1 tablet by mouth once daily. glimepiride (AMARYL) 4 mg tablet Take one tab in the AM and 1/2 a tab in the PM. metFORMIN (GLUCOPHAGE) 500 mg tablet Take 2 tablets by mouth two times a day. levothyroxine (SYNTHROID) 25 mcg tablet Take 1 tablet by mouth once daily. Take on empty stomach. For thyroid. magnesium oxide (MAG-OX) 400 mg (241.3 mg magnesium) tablet Take 1 tablet by mouth two times a day. cholecalciferol (VITAMIN D) 1,000 unit tab tablet Take 1,000 Units by mouth twice daily. carvedilol (COREG) 6.25 mg tablet Take 1 tablet by mouth twice daily with meals. Per Cardio, Dr. Groves famotidine (PEPCID) 40 mg tablet Take 1 tablet by mouth once daily. Per GI: Dr. Martinez ursodiol (REBECCA) 250 mg tablet Take 250 mg by mouth twice daily. No current facility-administered medications on file prior to visit. Social History Social History Tobacco Use Smoking status: Never Smokeless tobacco: Never Substance Use Topics Alcohol use: Yes Comment: occasional Drug use: No Review of Symptoms REVIEW OF SYSTEMS GENERAL: No unintentional weight loss weight loss (with diuresis has lost weight), malaise or fevers RESPIRATORY: Negative for cough, hemoptysis, wheezing, COPD, dyspnea or shortness of breath CARDIOVASCULAR: Negative for chest pain, leg swelling, hypertension, CHF or palpitations NEURO: No history of headaches, syncope, paralysis, seizures or tremors EXAM: BP 120/70 (BP Site: Right Arm, BP Position: Sitting, BP Cuff Size: Regular Adult) Pulse 72 Resp16 Wt 57.6 kg (127 lb) LMP 10/14/2005 BMI 24.00 kg/m Last 5 Encounter Wt Readings: Date: Wt: 06/10/2024 57.6 kg (127 lb) 04/03/2024 64 kg (141 lb) 10/03/2023 59.4 kg (131 lb) 04/03/2023 61.7 kg (136 lb) 09/26/2022 59.4 kg (131 lb) General Appearance: Well appearing, alert, in no acute distress, well-hydrated, well nourished.. Ears: External ears, TM's normal, canals clear. Neck: Supple, no adenopathy; thyroid symmetric, normal size, no bruits. Lungs: Lungs clear to auscultation. No wheezing, rhonchi, rales.. Heart: RRR without murmur, gallop, or rubs. No ectopy. Extremities: No deformities, edema, skin discoloration, clubbing or cyanosis. Good capillary refill. . Health Maintenance List Mammogram Screening due on 08/15/2022 Covid-19 Vaccine(2022- season) due on 04/03/2025 Influenza Vaccine(1) due on 06/28/2024 HbA1C due on 11/05/2024 Dilated Retinal Exam due on 02/04/2025 Urine Albumin:Creatinine Ratio due on 03/26/2025 LDL Cholesterol due on 03/26/2025 Serum Creatinine due on 03/26/2025 Hemoglobin/Hematocrit due on 03/26/2025 Diabetic Foot Exam due on 04/03/2025 Annual PCP Team Chronic Disease Visit due on 04/03/2025 Depression Screening due on 04/03/2025 Anxiety Screening due on 04/03/2025 BP Controlled (<130/80) due on 04/03/2025 Colorectal Cancer Screening due on 10/08/2028 DTaP,Tdap,Td Vaccine(3 - Td or Tdap) due on 07/20/2032 Hepatitis B Vaccine Completed Bone Density Screening Completed Hepatitis A Vaccine Completed Advance Directive Discussion Completed RSV Vaccine Completed Hepatitis C Screening Completed Shingrix Vaccine Completed Pneumococcal Vaccine: 65+ Completed Cervical Cancer Screening Discontinued Data reviewed Latest Ref Rng 06/03/2024 Albumin 3.9 - 4.9 g/dL 3.6 (L) Bilirubin, Total 0.2 - 1.3 mg/dL 0.7 Bilirubin, Conjug <0.2 mg/dL 0.2 (H) Alkaline Phosphatase 34 - 123 U/L 105 AST 13 - 35 U/L 27 ALT 7 - 38 U/L 20 Protein, Total 6.3 - 8.0 g/dL 7.2 TSH 0.270 - 4.200 mIU/L 3.270 THYROID PEROXIDASE ANTIBODY <5.6 IU/mL <3.0 Legend: (L) Low (H) High A/P ASSESSMENT/PLAN: 1. Hypothyroidism, acquired - ICD9: 244.9, ICD10: E03.9 (primary diagnosis) - Instructed patient on importance of taking on an empty stomach either first thing in the morning or at bedtime. - continue current dose of Synthroid 2. Bilateral leg edema - ICD9: 782.3, ICD10: R60.0 - resolved since being on the lasix. Patient to continue current Tx. Has F/U in 09/2024 routine with labs prior.. Billy Culp MD documented in this encounterC[facility] History of Present illness Narrative* Carolyn Vargas LPN - 05/05/2024 2:49 PM EDT Scan on 05/05/2024 2:30 PM by ProviderElizabeth PA-C: Miscellaneous Lab Scan on 05/05/2024 12:43 PM by Elizabeth Roblero PA-C: Hematology Scan on 05/05/2024 11:43 AM by ProviderElizabeth PA-C: Chemistry documented in this encounterC[facility]06-07-[facility]24 Instructions* Patient Instructions* Billy Culp MD - 04/03/2024 2:46 PM EDT Get non-fasting labs on about 06/03/2024 so we can review at visit on 06/08/2024 Please get labs done on or after 09/18/2024 prior to your next visit. Screening schedule The following prevention plan is recommended: Mammogram Screening due on 08/15/2022 Advance Directive Discussion due on 10/28/2023 Behavioral Health Screening Never done Covid-19 Vaccine() due on 12/16/2023 Diabetic Foot Exam due on 04/03/2024 WHAT YOU CAN DO TO PREVENT FALLS Many falls can be prevented. By making some changes, you can lower your chances of falling. Four things YOU can do to prevent falls for you* and your caregiver 1. Begin a regular exercise program Exercise is one of the most important ways to lower your chances of falling. It makes you stronger and helps you feel better. Exercises that improve balance and coordination (like Tod Chi) are the most helpful. Lack of exercise leads to weakness and increases your chances of falling. Ask your doctor or health care provider about the best type of exercise program for you. 2. Have your health care provider review your medicines Have your doctor or pharmacist review all the medicines you take, even [id number] medicines. As you get older, the way medicines work in your body can change. Some medicines, or combinations of medicines, can make you sleepy or dizzy andcan cause you to fall. 3. Have your vision checked Have your eyes checked by an eye doctor at least once a year. You may be wearing the wrong glasses or have a condition like glaucoma or cataracts that limits your vision. Poor vision can increase your chances of falling. 4. Make your home safer About half of all falls happen at home. To make your home safer: Remove things you can trip over (like papers, books, clothes, and shoes) from stairs and places where you walk. Remove small throw rugs or use double-sided tape to keep the rugs from slipping. Keep items you use often in cabinets you can reach easily without using a step stool. Have grab bars put in next to your toilet and in the tub or shower. Use non-slip mats in the bathtub and on shower floors. Improve the lighting in your home. As you get older, you need brighter lights to see well. Hang light-weight curtains or shades to reduce glare. Have handrails and lights put in on all staircases. Wear shoes both inside and outside the house. Avoid going barefoot or wearing slippers. For more information, contact: Centers for Disease Control and Prevention www.cdc.gov/injury * This information may not apply if you have certain medical conditions. documented in this encounterC[facility]06-07-2024 History of Present illness Narrative* Billy Culp MD - 04/03/2024 2:23 PM EDT Images from the original note were not included. Robbin Morse is a 68 year old female here for a Medicare wellness visit. Medicare Health Risk Assessment General Health Exercise: Minutes/Day Patient declined Exercise: Days/Week Patient declined Alcohol: Daily Use Never Alcohol: Drinks/Day Patient does not drink Alcohol: 6 or more drinks Never Feel off balance No Concerns: Teeth/Dentures No Concerns: Sexual function No Troubled by feelings None of the above Frequency: Eating healthy diet Nearly every day ADLs requiring help None of the above Safety precautions in home/vehicle Yes Smoke, vape, chews tobacco No Difficulty hearing No Difficulty seeing No Current Providers Specialists: I have reviewed specialist-related care of the patient in the medical record. Current care team: Patient Care Team: Billy Culp MD as PCP - General (Family Medicine) Kailee Rodriguez MD as Primary Staff Physician (Cardiology) Dr. Groves (cardio) Dr. Martinez, Dr. Mcclure at [facility] (Gastro) optho Medical/Family history review Reviewed and updated problem list, medical/surgical/family/social history, medications, and allergies. Opioid use review Opioid Medications (last 90 days) No data to display Anxiety/Depression screening Depression Screening PHQ-2 Score HORACIO-2 Total Score 04/03/2024 0 0 Depression screening tool completed and reviewed. Based on score and interview, patient is not at risk for depression. Screening tool discussed with patient, and I recommended no further interventionat this time. Cognitive screening Score: 5 Cognitive screening reviewed and No further action needed (score 3-5). Functional Observation Was the patient's Timed Up & Go test unsteady or ? 12 seconds? No Advance Care Planning Surrogate decision maker documented and/or advance directives scanned in chart Measurements BP 124/72 Pulse 72 Resp 16 Ht 5' 1 (1.55m) Wt 141 lb (64.0kg) LMP 10/14/2005 BMI 26.66kg/(m^2). Vision Screening: Follows with optometry/ophthalmology Assessment/Plan Medicare annual wellness visit, subsequent (Z00.00) - Counseled on healthy diet and regular exercise - Fall avoidance information provided - Personalized prevention plan provided See Below Chief Complaint Patient presents with: Medicare Wellness Exam HPI Robbin Morse is a 68 year old female who presents here today for Chronic Medical Conditions. and Medicare Annual Visit. patient with Hx of DM 2, Hyperlipidemia, HTN, A. Fib, Valvular heart disease, CKD, Iron Def, thrombocytopenia, Leukopenia, B12 def, Pulm HTN, esophageal varices, SANCHEZ, cirrhosis as well as those reviewed and addressed below and in ROS. Patient has been doing well. No issues. Past medical history, appointments, medications, allergies reviewed. [...] 12/23/[address] 03/08/2022 DPA: Caro () Living will on file at physician's office 03/08/2022 DPA: Caro () Medicare annual wellness visit, initial 03/08/2022 Medicare Part B: 08/28/2020 Last done: 03/08/2022 Moderate mitral regurgitation 01/22/2017 Multiple gastric ulcers 07/24/202106/2021 SANCHEZ (nonalcoholic steatohepatitis) 07/24/[address] Martinez Paroxysmal atrial fibrillation (HCC) 05/16/2017 Pulmonary hypertension, secondary 01/22/2017 Renal stone 09/29/202208/2022: Analysis: calcium oxalate. S/P ablation of atrial fibrillation 01/19/2019 Dr. Chaudhry Secondary esophageal varices with bleeding (HCC) 07/24/2021 [...] on File Prior to Visit Medication Sig scopolamine (TRANSDERM-SCOP) patch 1.5 mg/72 hr (delivers 1 mg over 3 days) Apply 1 Patch as directed every 72 hours. Apply patch to skin behind ear 4hrs prior to travel. ondansetron orally disintegrating (ZOFRAN ODT) 4 mg disintegrating tablet Take 1 tablet by mouth every 8 hours as needed for nausea/vomiting. metFORMIN (GLUCOPHAGE) 500 mg tablet Take 2 tablets by mouth two times a day. hydroCHLOROthiazide 12.5 mg capsule Take 1 capsule by mouth once daily. glimepiride (AMARYL) 4 mg tablet Take one tab in the AM and 1/2 a tab in the PM. ezetimibe (ZETIA) 10 mg tablet Take 1 tablet by mouth once daily. magnesium oxide (MAG-OX) 400 mg (241.3 mg magnesium) tablet Take 1 tablet by mouth two times a day. potassium chloride ER (KLOR-CON) 20 mEq tablet Take 1 tablet by mouth once daily. cholecalciferol (VITAMIN D) 1,000 unit tab tablet Take 1,000 Units by mouth twice daily. carvedilol (COREG) 6.25 mg tablet Take 1 tablet by mouth twice daily with meals. Per Cardio, Dr. Groves famotidine (PEPCID) 40 mg tablet Take 1 tablet by mouth once daily. Per GI: Dr. Martinez admcikq-khnfijiil-lwdzcjh D3 500 mg-5 mcg (200 unit) per tablet Take by mouth. (Patient not taking:Reported on 09/26/2022) ursodiol (REBECCA) 250 mg tablet Take 250 mg by mouth twice daily. No current facility-administered medications on file prior to visit. Social History Social History Tobacco Use Smoking status: Never Smokeless tobacco: Never Substance Use Topics Alcohol use: Yes Comment: occasional Drug use: No Review of Symptoms REVIEW OF SYSTEMS GENERAL: No weight loss, malaise or fevers HEENT: Negative for frequent or significant headaches, No changes in hearing or vision, no nose bleeds or other nasal problems NECK: Negative for lumps, goiter, pain and significant neck swelling RESPIRATORY: Negative for cough, hemoptysis, wheezing, COPD, dyspnea or shortness of breath CARDIOVASCULAR: Negative for chest pain, hypertension, CHF or palpitations. Since being off the HCTZ and placed on the Aldactone the gets some swelling in her ankles/lower legs. GI: No nausea, vomiting, or diarrhea, No heartburn or reflux symptoms, and no blood. No ascites. : No history of dysuria, frequency or blood MUSCULOSKELETAL: Negative for joint pain or swelling, back pain or muscle pain SKIN: Negative for lesions, rash, and itching PSYCH: Negative for sleep disturbance, mood disorder and recent psychosocial stressors HEMATOLOGY/LYMPHOLOGY: Negative for prolonged bleeding, bruising easily or swollen nodes ENDOCRINE: Negative for cold or heat intolerance, gets an occasional low BS's NEURO: No history of headaches, syncope, paralysis, seizures or tremors EXAM: BP 124/72 (BP Site: Left Arm, BP Position: Sitting, BP Cuff Size: Regular Adult) Pulse 72 Resp 16 Ht 154.9 cm (5' 1) Wt 64 kg (141 lb) LMP 10/14/2005 BMI 26.64 kg/m Last 5 Encounter Wt Readings: Date: Wt: 04/03/2024 64 kg (141 lb) 10/03/2023 59.4 kg (131 lb) 04/03/2023 61.7 kg (136 lb) 09/26/2022 59.4 kg (131 lb) 05/02/2022 61 kg (134 lb 6.4 oz) General Appearance: Well appearing, alert, in no acute distress, well-hydrated, well nourished.. Skin: Skin color, texture, turgor normal, no suspicious rashes or lesions. Head: Normocephalic, no masses, lesions, tenderness or abnormalities. Eyes: Anicteric sclera. Pupils are equally round and reactive to light. Extraocular movements are intact. . Ears: External ears, TM's normal, canals clear. Nose/Sinuses: Nares normal, septum midline, mucosa normal, no drainage or sinus tenderness. Oropharynx: Lips, mucosa, and tongue normal, teeth and gums normal, oropharynx normal. Neck: Supple, no adenopathy; thyroid symmetric, normal size, no bruits. Lungs: Lungs clear to auscultation. No wheezing, rhonchi, rales.. Heart: RRR without murmur, gallop, or rubs. No ectopy. Abdomen: Normal abdominal exam, Abdomen soft, non-tender. Bowel sounds normal. No masses, organomegaly. Extremities: No deformities, skin discoloration, clubbing or cyanosis. Good capillary refill. Has 1+ pitting edema in the lower legs. Musculoskeletal: Muscular strength intact, No joint swelling, deformity, or tenderness. Peripheral Pulses: Normal. Neurologic: Gait normal. Reflexes normal and symmetric. Sensation to light touch and crainal nerves2-12 intact.. Health Maintenance List Mammogram Screening due on 08/15/2022 Advance Directive Discussion due on 10/28/2023 Behavioral Health Screening Never done Covid-19 Vaccine( season) due on 12/16/2023 Diabetic Foot Exam due on 04/03/2024 HbA1C due on 09/26/2024 Annual PCP Team Chronic Disease Visit due on 10/03/2024 BP Controlled (<130/80) due on 10/03/2024 Dilated Retinal Exam due on 02/04/2025 Urine Albumin:Creatinine Ratio due on 03/26/2025 LDL Cholesterol due on 03/26/2025 Serum Creatinine due on 03/26/2025 Hemoglobin/Hematocrit due on 03/26/2025 Colorectal Cancer Screening due on 10/08/2028 DTaP,Tdap,Td Vaccine(3 - Td or Tdap) due on 07/20/2032 Hepatitis B Vaccine Completed Bone Density Screening Completed Hepatitis A Vaccine Completed Influenza Vaccine Completed RSV Vaccine Completed Hepatitis C Screening Completed Shingrix Vaccine Completed Pneumococcal Vaccine: 65+ Completed Pap Testing Discontinued Data reviewed Latest Ref Rng 04/03/2023 09/16/2023 03/26/2024 WBC 3.70 - 11.00 k/uL 4.02 3.33 (L) 3.90 RBC 3.90 - 5.20 m/uL 3.18 (L) 2.84 (L) 2.94 (L) Hemoglobin 11.5 - 15.5 g/dL 10.8 (L) 9.5 (L) 9.9 (L) Hematocrit 36.0 - 46.0 % 32.3 (L) 28.2 (L) 29.2 (L) MCV 80.0 - 100.0 fL 101.6 (H) 99.3 99.3 MCH 26.0 - 34.0 pg 34.0 33.5 33.7 MCHC 30.5 - 36.0 g/dL 33.4 33.7 33.9 RDW-CV 11.5 - 15.0 % 13.1 13.0 13.6 Platelet Count 150 - 400 k/uL 66 (L) 45 (L) 59 (L) MPV 9.0 - 12.7 fL 10.9 9.6 10.3 Neut% % 64.6 64.9 71.8 Abs Neut (ANC) 1.45 - 7.50 k/uL 2.60 2.16 2.80 Lymph% % 19.9 21.0 15.9 Abs Lymph 1.00 - 4.00 k/uL 0.80 (L) 0.70 (L) 0.62 (L) [place]% % 10.0 9.0 8.5 Abs [place] <0.87 k/uL 0.40 0.30 0.33 Eosin% % 4.5 4.2 2.8 Abs Eosin <0.46 k/uL 0.18 0.14 0.11 Baso% % 0.5 0.6 0.5 Abs Baso <0.11 k/uL <0.03 <0.03 <0.03 Immature Gran % % 0.5 0.3 0.5 IMMATURE GRANS (ABS) <0.10 k/uL <0.03 <0.03 <0.03 NRBC /100 WBC 0.0 0.0 0.0 Absolute nRBC <0.01 k/uL <0.01 <0.01 <0.01 DTYPE Auto Auto Auto Color Yellow Yellow Clarity Clear Clear Glucose, Urine Negative Negative Bilirubin, Urine Negative Negative Ketones, Urine Negative Negative Specific [place], Ur 1.005 - 1.030 1.007 Hemoglobin/Blood,Ur Negative Negative pH, Urine <8.5 7.0 Protein, Urine Negative Negative Urobilinogen 0.2-1.0 EU/dL 0.2 EU/dL Nitrites Negative Negative Leukest Negative Negative WBC, Urine 0-5 /HPF 0-5 /HPF RBC, Urine 0-2 /HPF 0-2 /HPF Bacteria Negative /HPF Negative Epithelial Cells /HPF None Seen Hyaline Cast 0 /LPF 1-3 /LPF ! Protein, Total 6.3 - 8.0 g/dL 7.6 6.7 7.0 Albumin 3.9 - 4.9 g/dL 4.1 3.7 (L) 3.6 (L) Calcium 8.5 - 10.2 mg/dL 10.7 (H) 9.7 10.0 Bilirubin, Total 0.2 - 1.3 mg/dL 0.7 1.0 0.8 Alkaline Phosphatase 34 - 123 U/L 88 92 120 AST 13 - 35 U/L 43 (H) 33 33 ALT 7 - 38 U/L 22 26 22 Glucose 74 - 99 mg/dL 137 (H) 113 (H) 102 (H) BUN 7 - 21 mg/dL 20 21 18 Creatinine 0.58 - 0.96 mg/dL 1.15 (H) 1.29 (H) 1.22 (H) Sodium 136 - 144 mmol/L 143 137 133 (L) Potassium 3.7 - 5.1 mmol/L 4.5 3.8 5.0 Chloride 97 - 105 mmol/L 106 (H) 103 103 CO2 22 - 30 mmol/L 14 (L) 24 22 Anion Gap 9 - 18 mmol/L 23 (H) 10 8 (L) eGFR >=60 mL/min/1.73m 52 (L) 46 (L) 48 (L) Total Cholesterol, Nonfasting <200 mg/dL 224 (H) 184 142 Triglycerides, Nonfasting <150 mg/dL 129 95 81 HDL Cholesterol, Nonfasting >39 mg/dL 80 82 67 LDL Cholesterol, Nonfasting <100 mg/dL 118 (H) 83 59 Non HDL Cholesterol, Nonfasting <130 mg/dL 144 (H) 102 75 VLDL Cholesterol, Nonfasting <30 mg/dL 26 19 16 Total Chol/HDL Ratio, Nonfasting <5.10 mg/dL 2.80 2.24 2.12 LDL/HDL Ratio, Nonfasting <2.54 mg/dL 1.48 1.01 0.88 Iron 41 - 186 ug/dL 105 93 68 TIBC 232 - 386 ug/dL 377 323 308 Transferrin Saturation 15.0 - 57.0 % 27.9 28.8 22.1 Creatinine, Ur Random (UCRR) 20.0 - 300.0 mg/dL 31.8 Albumin, Urine Random mg/L <12.0 Albumin/Creat Ratio -- Hemoglobin A1C 4.3 - 5.6 % 7.0 (H) 7.0 (H) 7.1 (H) Estimated Average Glucose mg/dL 154 154 157 Vitamin B12 232 - 1,245 pg/mL 296 1,448 (H) 407 PTH, Intact 15 - 65 pg/mL 13 (L) TSH 0.270 - 4.200 mIU/L 5.400 (H) A/P ASSESSMENT/PLAN: 1. Encounter for Medicare annual wellness exam - ICD9: V70.0, ICD10: Z00.00 (primary diagnosis) - Counseled on healthy diet and regular exercise - Follow up for annual exam in one year 2. Type 2 diabetes mellitus with stage 3b chronic kidney disease, without long- term current use of insulin (HCC) - ICD9: 250.40, 585.3, ICD10: E11.22, N18.32 - Uncontrolled - Worsening control - Continue current medications - Counseled on healthy diet and regular exercise - Discussed need for and benefit of weight loss. BMI 26.64 kg/(m^2) - eGFR: 48 Improving - Counseled on avoiding NSAIDs, adequate hydration 3. Essential hypertension, benign - ICD9: 401.1, ICD10: I10 - Controlled - Continue current medications - Recommend home blood pressure monitoring, to bring results to next visit - Encouraged sodium restriction, DASH or Mediterranean diet - Recommend regular aerobic exercise 4. Hyperlipidemia, mixed - ICD9: 272.2, ICD10: E78.2 - Controlled - Improving control - Continue current medications - Counseled on healthy diet and regular exercise 5. Diabetic eye exam (HCC) - ICD9: V72.0, 250.00, ICD10: Z01.00, E11.9 - up to date 6. Paroxysmal atrial fibrillation (HCC) - ICD9: 427.31, ICD10: I48.0 - stable and managed per cardio. Can not be on anticoagulation due to esophageal varices. 7. Iron deficiency anemia due to chronic blood loss - ICD9: 280.0, ICD10: D50.0 - stable and cont replacement 8. Stage 3b chronic kidney disease (HCC) - ICD9: 585.3, ICD10: N18.32 - eGFR: 48 Improving - Counseled on avoiding NSAIDs, adequate hydration 9. Pulmonary hypertension (HCC) - ICD9: 416.8, ICD10: I27.20 - stable and managed per cardio 10. Thrombocytopenia (HCC) - ICD9: 287.5, ICD10: D69.6 - stable no changes. 11. Leukopenia, unspecified type - ICD9: 288.50, ICD10: D72.819 - normal on recent lab. Will monitor 12. Vitamin B12 deficiency - ICD9: 266.2, ICD10: E53.8 - cont replacement. Controlled. 13. SANCHEZ (nonalcoholic steatohepatitis) - ICD9: 571.8, ICD10: K75.81 - on meds and managed per gastro 14. Cirrhosis, nonalcoholic (HCC) - ICD9: 571.5, ICD10: K74.60 - as per #13 15. Secondary esophageal varices with bleeding (HCC) - ICD9: 456.20, ICD10: I85.11 - as per #13 16. Advance directive discussed with patient - ICD9: V65.49, ICD10: Z71.89 - up to date 17. Anemia due to other cause, not classified - ICD9: 285.8, ICD10: D64.89 - stable around 9.0 18. Hypothyroidism, acquired - ICD9: 244.9, ICD10: E03.9 - Instructed patient on importance of taking on an empty stomach either first thing in the morning or at bedtime. Will start her on synthroid 25 mcg a day and check TSH and thyroid peroxidase antibody in 2 months. 19. Mild protein-calorie malnutrition (HCC) - ICD9: 263.1, ICD10: E44.1 - suspect due to her decreased protein diet. Advised to increase her protein intake some. - will re-check her LFT's in 2 months. 20. Bilateral leg edema - ICD9: 782.3, ICD10: R60.0 - multifactorial: her age, HTN, low albumin and could be a component of her thyroid disease. Patient to increase her dietary protein slightly. - will start her on levothyroxine 25 mcg a day. Requested Prescriptions Signed Prescriptions Disp Refills ezetimibe (ZETIA) 10 mg tablet 90 tablet 1 Sig: Take 1 tablet by mouth once daily. glimepiride (AMARYL) 4 mg tablet 135 tablet 1 Sig: Take one tab in the AM and 1/2 a tab in the PM. metFORMIN (GLUCOPHAGE) 500 mg tablet 360 tablet 1 Sig: Take 2 tablets by mouth two times a day. levothyroxine (SYNTHROID) 25 mcg tablet 90 tablet 1 Sig: Take 1 tablet by mouth once daily. Take on empty stomach. For thyroid. F/u in 2 months to recheck edema and thyroid. Check LFT's, TSH and thyroid peroxidase Ab. F/u 6 months routine check CMP, CBC, Lipid and A1c prior I spent a total of 50 minutes on the date of the service which included preparing to see the patient, [id number] patient care, completing clinical documentation, performing a medically appropriate examination, counseling and educating the patient/family/caregiver and ordering medications, tests, or procedures. Patient was asked at end of visit if they had any questions or input regarding the plan of care we had discussed. Billy Culp MD Behavioral Health Screening PHQ-2 Score: 0 (Lower risk for depression) HORACIO-2 Score: 0 (Lower risk for anxiety) Recommendation: no further intervention at this time documented in this encounterC[facility]04[facility] History of Present illness Narrative* Fara Valdez LPN - 02/20/2024 11:08 AM EDT Scan on 02/19/2024 12:13 PM by Provider, External, PA-C: Musa Valdez LPN documented in this encounterC[facility] [facility] History of Present illness Narrative* America Mcclure MD - 02/13/2024 10:00 AM EDT Clinical Care Team: -Referring Provider for today's consult: Self, Self -Primary Care Provider: Billy Culp History of Present Illness Robbin Morse is a 68 y.o. female who presents to the [facility] today for follow-up regarding [...] she is undergoing banding locally She is doing well but does have some fatigue. She just returned from [place]. She has had no furtherdecompensating events Otherwise, she denies any recent fevers, chills, night sweats, unexpected weight loss, any new visual complaints, headaches, sore throat, heartburn, dysphagia, cough, chest pain, shortness of breath,nausea, vomiting, abdominal pain, diarrhea, constipation, melena, hematochezia, dysuria, hematuria,arthralgias, myalgias, insomnia, or rashes. Medications Current Outpatient Medications Medication Sig carveDILOL 6.25 MG tablet Take 1 tablet by mouth. Cholecalciferol (Vitamin D3) 50 MCG (1999) tablet Ezetimibe 10 MG tablet Take 1 tablet by mouth daily. ferrous sulfate 324 (65 Fe) MG Tab DR tablet Take 1 tablet by mouth 2 times daily. gliMEPIride 4 MG tablet Take 1 tablet by mouth daily with breakfast. magnesium oxide 400 MG tablet Take 1 tablet by mouth 2 times daily. metFORMIN 500 MG tablet Take 2 tablets by mouth 2 times daily. Spironolactone 25 MG tablet Take 1 tablet by mouth daily. 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 MG tablet Take 1 tablet by mouth 2 times daily. Review of Systems Please refer to the above MEKORYUK for her pertinent positive and negatives Physical Exam BP 132/84 (BP Location: Left arm, BP Position: Sitting) Pulse 94 Ht 1.549 m (5' 1) Wt 60.3 kg (133 lb) SpO2 95% BMI 25.13 kg/m Smoking Status Never Constitutional: Well developed, [...] 2.9 Hgb 9.5 Plt 51 AFP 7.4 02/03/24 Na 138 K 4.2 Cl 105 CO2 25 BUN 17 Cr 1.37 AST 48 ALT 40 Alk Phos 83 T bili 1.3 Albumin 3.2 WBC 4 Hgb 10 Plt 55 INR 1.2 Imaging/Procedures Colonoscopy 2017 no polyps noted EGD 01/02/2424 Grade I EV and PHG RUQ US 11/19/22 Cirrhosis no concerning lesion MRI 02/03/24 Cirrhosis without liver masses Assessment Robbin Morse is a 68 y.o. female with a history of HTN, [...] She will continue to get her banding locally, her scope had only Grade I varices 2023 - strict 2 gram, low sodium diet. For follow up, she will return to my clinic in 12 months Sincerely, America Mcclure M.D. Environmental Director of Clinical Medicine Gastroenterology, Hepatology, and Nutrition The [address], [address] [place] [address] * Teresa Martinez - 02/13/2024 10:00 AM EDT This MA verified pt's name and . documented in this encounterPomerene [facility]04-18-2024 Instructions* Patient Instructions* America Mcclure MD - 02/13/2024 10:00 AM EDT Thank you for coming into clinic today. Your doctor was Dr. America Mcclure. The following are yourinstructions: - All your labs look amazing. No changes at this time. Your next imaging will be due in 6 months with either an MRI or an ultrasound which we can order or your local GI can. If you have any questions please do not hesitate to contact our clinic, the phone number for the [facility] clinic is [phone], the Fax is [phone] documented in this encounterPomerene Hospital04-16-2024 History of Present illness Narrative* Fara Valdez LPN - 02/11/2024 2:03 PM EDT Scan on 02/11/2024 11:01 AM by ProviderElizabeth, PA-C: Consultation - Cardiology Fara Valdez LPN documented in this [facility]04-11-2024 History of Present illness Narrative* Fara Valdez LPN - 02/06/2024 2:21 PM EDT Scan on 02/05/2024 4:25 PM by ProviderElizabeth PA-C: Consultation - Ophthalmology Fara Valdez LPN documented in this encounterC[facility]04-10-[facility] History of Present illness Narrative* Maria Luz Dejesus MA - 02/05/2024 1:25 PM EDT Scan on 02/03/2024 10:16 AM by ProviderElizabeth PA-C: Chemistry Scan on 02/03/2024 10:32 AM by ProviderElizabeth PA-C: Chemistry Scan on 02/03/2024 10:37 AM by ProviderElizabeth PA-C: Chemistry Scan on 02/03/2024 10:40 AM by ProviderElizabeth PA-C: Chemistry Scan on 02/04/2024 4:34 AM by ProviderElizabeth PA-C: Miscellaneous Lab Maria Luz Dejesus MA documented in this encounterC[facility]04-09-2024 History of Present illness Narrative* Fara Valdez LPN - 02/04/2024 9:28 AM EDT Scan on 02/03/2024 5:12 PM by Elizabeth Roblero PA-C: MRI Fara Valdez LPN documented in this encounterC[facility]03-07-2024 History of Present illness Narrative* Mera Maxwell LPN - 01/02/2024 3:29 PM EST Scan on 01/02/2024 6:48 AM by Elizabeth Roblero PA-C Scan on 01/02/2024 7:34 AM by Elizabeth Roblero PA-C: EGD Scan on 01/02/2024 7:33 AM by Elizabeth Roblero PA-C: EGD documented in this encounterC[facility]03-07-2024 [facility]02-19-2024 Miscellaneous Notes* Telephone Encounter - Aubrie Mares LPN - 12/16/2023 11:56 AM EST LLOV-10/03/23 Labs-09/16/23 NOV-04/03/24 Aubrie Mares LPN documented in this encounterC[facility]11-20-2023 History of Present illness Narrative* Jody Duron Ma - 09/16/2023 1:33 PM EST View External Labs - Miscellaneous Lab [ID [id number]] documented in this encounterC[facility]11-09-2023 History of Present illness Narrative* Gloria Montana Ma - 09/05/2023 10:52 AM EST View External Imaging - Ultrasound [ID [id number]] documented in this encounterC[facility] Clinic [facility]09-25-2023 Miscellaneous Notes* Telephone Encounter - Billy Culp MD - 07/22/2023 3:24 PM EDT The following approved medication requests have been transmitted electronically. Requested Prescriptions Signed Prescriptions Disp Refills metFORMIN (GLUCOPHAGE) 500 mg tablet 360 tablet 1 Sig: Take 2 tablets by mouth twice daily. Authorizing Provider: BILLY CULP glimepiride (AMARYL) 4 mg tablet 90 tablet 1 Sig: Take 1 tablet by mouth daily with breakfast. Authorizing Provider: BILLY CULP MD * Telephone Encounter - Jody Duron Ma - 07/22/2023 2:32 PM EDT Last office visit: 04/03/23 F/u scheduled: 12/7/23 Jody Duron Ma documented in this encounterCleveland Clinic [facility]08-24-2023 History of Present illness Narrative* America Mcclure MD - 06/20/2023 10:30 AM EDT Clinical Care Team: -Referring Provider for today's consult: America Mcclure MD -Primary Care Provider: Billy Culp History of Present Illness Robbin Morse is a 67 y.o. female who presents to the [facility] today for follow-up regarding [...] denies any confusion. She is planning a tripto [place] in december of 2022 Otherwise, she denies any recent fevers, chills, night sweats, unexpected weight loss, any new visual complaints, headaches, sore throat, heartburn, dysphagia, cough, chest pain, shortness of breath,nausea, vomiting, abdominal pain, diarrhea, constipation, melena, hematochezia, dysuria, hematuria,arthralgias, myalgias, insomnia, or rashes. Medications Current Outpatient [...] of Systems Please refer to the above MEKORYUK for her pertinent positive and negatives Physical Exam BP 130/60 (BP Location: Right arm, BP Position: Sitting) Pulse 76 Resp 18 Ht 1.549 m (5' 1) Wt 60.8 kg (134 lb 1.6 oz) [...] cleared to go on her cruise to [place] in 12/2023 For follow up, she will return to my clinic in 6 months Sincerely, America Mcclure M.D. Environmental Director of Clinical Medicine Gastroenterology, Hepatology, and Nutrition The [address], [address] [place] [address] * Emili Espinal RN - 06/20/2023 10:30 AM EDT This RN verified patient's Name and documented in this encounterU [facility] History of Present illness Narrative* America Mcclure MD - 06/20/2023 10:30 AM EDT Clinical Care Team: -Referring Provider for today's consult: America Mcclure MD -Primary Care Provider: Billy Culp History of Present Illness Robbin Morse is a 67 y.o. female who presents to the [facility] today for follow-up regarding her [...] denies any confusion. She is planning a tripto [place] in december of 2022 Otherwise, she denies any recent fevers, chills, night sweats, unexpected weight loss, any new visual complaints, headaches, sore throat, heartburn, dysphagia, cough, chest pain, shortness of breath,nausea, vomiting, abdominal pain, diarrhea, constipation, melena, hematochezia, dysuria, hematuria,arthralgias, myalgias, insomnia, or rashes. Medications Current Outpatient [...] of Systems Please refer to the above MEKORYUK for her pertinent positive and negatives Physical Exam BP 130/60 (BP Location: Right arm, BP Position: Sitting) Pulse 76 Resp 18 Ht 1.549 m (5' 1) Wt 60.8 kg (134 lb 1.6 oz) [...] cleared to go on her cruise to [place] in 12/2023 For follow up, she will return to my clinic in 6 months Sincerely, America Mcclure M.D. Environmental Director of Clinical Medicine Gastroenterology, Hepatology, and Nutrition The [address], [address] [place] [address] * Emili Espinal RN - 06/20/2023 10:30 AM EDT This RN verified patient's Name and * Teresa Martinez - 06/20/2023 10:30 AM EDT Order given to patient to complete locally documented in this encounterOSU [facility]-24-[facility] Instructions* Patient Instructions* America Mcclure MD - 06/20/2023 10:30 AM EDT Thank you for coming into clinic today. Your doctor was Dr. America Mcclure. The following are yourinstructions: - Please continue to abstain from all alcohol - For pain please use tylenol/acetominophen it is safe in doses of 2000 mg or less. Avoid using NSAIDs for pain, these include ibuprofen, aleve, motrin, and aspirin. - Please avoid raw shellfish and sea food If you have any questions please do not hesitate to contact our clinic, the phone number for the [facility] is [phone], the Fax is [phone] documented in this encounterPomerene Hospital08-24-2023 Instructions* Patient Instructions* America Mcclure MD - 06/20/2023 10:30 AM EDT Thank you for coming into clinic today. Your doctor was Dr. America Mcclure. The following are yourinstructions: - Please continue to abstain from all alcohol - For pain please use tylenol/acetominophen it is safe in doses of 2000 mg or less. Avoid using NSAIDs for pain, these include ibuprofen, aleve, motrin, and aspirin. - Please avoid raw shellfish and sea food If you have any questions please do not hesitate to contact our clinic, the phone number for the [facility] is [phone], the Fax is [phone] documented in this encounterPomerene Hospital08-09-2023 History of Present illness Narrative* Maria Luz Dejesus MA - 06/05/2023 6:12 PM EDT Scan on 05/29/2023 9:52 AM by Provider, External, SEEC: Miscellaneous Lab Maria Luz Dejesus MA' documented in this encounterCleveland Clinic [facility]08-02-2023 Miscellaneous Notes* Telephone Encounter - Maria Luz Dejesus MA - 05/29/2023 9:05 AM EDT Patient notified and voiced understanding. Maria Luz Dejesus MA * Telephone Encounter - Billy Culp MD - 05/28/2023 9:12 PM EDT Let patient know urine labs ok. Her calcium level is almost back to normal and her parathyroid hormone is low. Since improving wantto repeat in a month. Orders placed. documented in this encounterC[facility] Clinic [facility]06-29-2023 Miscellaneous Notes* Telephone Encounter - Carolyn Vargas LPN - 04/25/2023 12:53 PM EDT Spoke with Fernanda who states she doesn't see where the problem was. Advises that the potassium chloride ER 20 mEq was shipped on 04/23 and HCTZ shipped 04/24. Called and advised pt of same. She will contact [facility] if she does not receive medications. Carolyn Vargas LPN * Telephone Encounter - Billy Culp MD - 04/25/2023 8:59 AM EDT Can we contact [facility] and find out what alternative to Klor-con 20 david they have since they told patient this one is not available but provided no info for her to let us know what is through them? documented in this encounterCleveland Clinic [facility]06-26-2023 Miscellaneous Notes* Telephone Encounter - Billy Culp MD - 04/22/2023 5:09 PM EDT The following approved medication requests have been transmitted electronically. Requested Prescriptions Signed Prescriptions Disp Refills hydroCHLOROthiazide 12.5 mg capsule 90 capsule 3 Sig: Take 1 capsule by mouth once daily. Authorizing Provider: BILLY CULP potassium chloride ER (KLOR-CON) 20 mEq tablet 90 tablet 3 Sig: Take 1 tablet by mouth once daily. Authorizing Provider: BILLY CULP MD * Telephone Encounter - Jody Duron Ma - 04/22/2023 3:33 PM EDT Last office visit: 04/03/23 F/u scheduled: 10/03/23 Jody Duron Ma documented in this encounterCleveland Clinic [facility]06-07-2023 History of Past illness Narrative* Problem Noted Date Resolved Date Closed nondisplaced fracture of left patella 04/202304/03/2023 Overview: 09/2022 Atrial fibrillation 01/17/2017 05/16/2017 Other and unspecified hyperlipidemia 08/25/2009 11/06/2013 Anxiety 06/30/2009 12/29/2015 Cervicalgia 06/30/2009 12/29/2015 documented as of this encounter (statuses as of 04/23/2023) [facility]06-[facility] History of Past illness Narrative* Problem Noted Date Resolved Date Closed nondisplaced fracture of left patella 04/202304/03/2023 Overview: 09/2022 Atrial fibrillation 01/17/2017 05/16/2017 Other and unspecified hyperlipidemia 08/25/2009 11/06/2013 Anxiety 06/30/2009 12/29/2015 Cervicalgia 06/30/2009 12/29/2015 documented as of this encounter (statuses as of 04/25/2023) [facility]06[facility] History of Past illness Narrative* Problem Noted Date Diagnosed Date Resolved Date Closed nondisplaced fracture of left patella 04/03/2023 Overview: 09/2022 Atrial fibrillation 01/17/2017 05/16/20 17 Other and unspecified hyperlipidemia 08/25/2009 11/06/2013 Anxiety 06/30/2009 12/29/2015 Cervicalgia 06/30/2009 12/29/2015 documented as of this encounter (statuses as of 05/29/2023) [facility] History of Past illness Narrative* Problem Noted Date Diagnosed Date Resolved Date Closed nondisplaced fracture of left patella 3 04/03/2023 Overview: 09/2022 Atrial fibrillation 01/17/2017 05/16/20 17 Other and unspecified hyperlipidemia 08/25/2009 11/06/2013 Anxiety 06/30/2009 12/29/2015 Cervicalgia 06/30/2009 12/29/2015 documented as of this encounter (statuses as of 06/06/2023) [facility] of Past illness Narrative* Problem Noted Date Diagnosed Date Resolved Date Closed nondisplaced fracture of left patella 3 04/03/2023 Overview: 09/2022 Atrial fibrillation 01/17/2017 05/16/20 17 Other and unspecified hyperlipidemia 08/25/2009 11/06/2013 Anxiety 06/30/2009 12/29/2015 Cervicalgia 06/30/2009 12/29/2015 documented as of this encounter (statuses as of 07/23/2023) [facility] of Past illness Narrative* Problem Noted Date Diagnosed Date Resolved Date Closed nondisplaced fracture of left patella 3 04/03/2023 Overview: 09/2022 Atrial fibrillation 01/17/2017 05/16/20 17 Other and unspecified hyperlipidemia 08/25/2009 11/06/2013 Anxiety 06/30/2009 12/29/2015 Cervicalgia 06/30/2009 12/29/2015 documented as of this encounter (statuses as of 09/03/2023) [facility] of Past illness Narrative* Problem Noted Date Diagnosed Date Resolved Date Closed nondisplaced fracture of left patella 3 04/03/2023 Overview: 09/2022 Atrial fibrillation 01/17/2017 05/16/20 17 Other and unspecified hyperlipidemia 08/25/2009 11/06/2013 Anxiety 06/30/2009 12/29/2015 Cervicalgia 06/30/2009 12/29/2015 documented as of this encounter (statuses as of 09/05/2023) [facility] of Past illness Narrative* Problem Noted Date Diagnosed Date Resolved Date Closed nondisplaced fracture of left patella 3 04/03/2023 Overview: 09/2022 Atrial fibrillation 01/17/2017 05/16/20 17 Other and unspecified hyperlipidemia 08/25/2009 11/06/2013 Anxiety 06/30/2009 12/29/2015 Cervicalgia 06/30/2009 12/29/2015 documented as of this encounter (statuses as of 09/18/2023) [facility] of Past illness Narrative* Problem Noted Date Diagnosed Date Resolved Date Closed nondisplaced fracture of left patella 3 04/03/2023 Overview: 09/2022 Atrial fibrillation 01/17/2017 05/16/20 17 Other and unspecified hyperlipidemia 08/25/2009 11/06/2013 Anxiety 06/30/2009 12/29/2015 Cervicalgia 06/30/2009 12/29/2015 documented as of this encounter (statuses as of 12/16/2023) [facility] of Past illness Narrative* Problem Noted Date Diagnosed Date Resolved Date Closed nondisplaced fracture of left patella 3 04/03/2023 Overview: 09/2022 Atrial fibrillation 01/17/2017 05/16/20 17 Other and unspecified hyperlipidemia 08/25/2009 11/06/2013 Anxiety 06/30/2009 12/29/2015 Cervicalgia 06/30/2009 12/29/2015 documented as of this encounter (statuses as of 01/02/2024) [facility] of Past illness Narrative* Problem Noted Date Diagnosed Date Resolved Date Closed nondisplaced fracture of left patella 3 04/03/2023 Overview: 09/2022 Atrial fibrillation 01/17/2017 05/16/20 17 Other and unspecified hyperlipidemia 08/25/2009 11/06/2013 Anxiety 06/30/2009 12/29/2015 Cervicalgia 06/30/2009 12/29/2015 documented as of this encounter (statuses as of 02/04/2024) [facility] History of Past illness Narrative* Problem Noted Date Diagnosed Date Resolved Date Closed nondisplaced fracture of left patella 3 04/03/2023 Overview: 09/2022 Atrial fibrillation 01/17/2017 05/16/20 17 Other and unspecified hyperlipidemia 08/25/2009 11/06/2013 Anxiety 06/30/2009 12/29/2015 Cervicalgia 06/30/2009 12/29/2015 documented as of this encounter (statuses as of 02/06/2024) [facility] of Past illness Narrative* Problem Noted Date Diagnosed Date Resolved Date Closed nondisplaced fracture of left patella 3 04/03/2023 Overview: 09/2022 Atrial fibrillation 01/17/2017 05/16/20 17 Other and unspecified hyperlipidemia 08/25/2009 11/06/2013 Anxiety 06/30/2009 12/29/2015 Cervicalgia 06/30/2009 12/29/2015 documented as of this encounter (statuses as of 02/07/2024) [facility] History of Past illness Narrative* Problem Noted Date Diagnosed Date Resolved Date Closed nondisplaced fracture of left patella 3 04/03/2023 Overview: 09/2022 Atrial fibrillation 01/17/2017 05/16/20 17 Other and unspecified hyperlipidemia 08/25/2009 11/06/2013 Anxiety 06/30/2009 12/29/2015 Cervicalgia 06/30/2009 12/29/2015 documented as of this encounter (statuses as of 02/12/2024) [facility]03[facility] History of Present illness Narrative* Mera Maxwell LPN - 01/03/2023 3:14 PM EST Scan on 01/03/2023 2:52 PM by External Provider: X-ray Karen Maxwell LPN documented in this encounterCleveland Clinic [facility]02-08-2023 History of Present illness Narrative* Maria Luz Dejesus MA - 12/05/2022 5:30 PM EST Scan on 12/05/2022 3:44 PM by External Provider: X-ray Please review. Maria Luz Dejesus MA documented in this encounterCleveland Clinic [facility]01-30-2023 Miscellaneous Notes* Telephone Encounter - Billy Culp MD - 11/26/2022 2:07 PM EST The following approved medication requests have been transmitted electronically. Requested Prescriptions Signed Prescriptions Disp Refills magnesium oxide (MAG-OX) 400 mg (241.3 mg magnesium) tablet 60 tablet 11 Sig: Take 1 tablet by mouth twice daily. Authorizing Provider: BILLY CULP MD * Telephone Encounter - Maria Luz Dejesus MA - 11/26/2022 1:38 PM EST Patient has been identified by name and date of : Yes Requested Prescriptions Pending Prescriptions Disp Refills magnesium oxide (MAG-OX) 400 mg (241.3 mg magnesium) tablet 60 tablet 11 Sig: Take 1 tablet by mouth twice daily. RX INSTRUCTIONS: Patient aware RX will be sent to pharmacy. No need to notify patient. Maria Luz Dejesus MA Rolando: 08/2022 Nov: 03/2023 Last refill; 11/2021 documented in this encounterCleveland Clinic [facility]12-01-2022 Miscellaneous Notes* Telephone Encounter - Billy Culp MD - 09/27/2022 4:36 PM EST Noted. * Telephone Encounter - Gloria Montana Ma - 09/27/2022 4:13 PM EST Spoke to patient who does not want to proceed with medication. Already has trouble eating due to cirrhosis and does not want to add anymore medication at this time. Patient will try to exercise. Gloria Montana Ma * Telephone Encounter - Billy Culp MD - 09/27/2022 4:03 PM EST [...] diet and weight loss. documented in this encounterCleveland Clinic [facility]11-30-2022 History of Present illness Narrative* Billy Culp MD - 09/26/2022 10:20 AM EST [...] 07/24/[address] Martinez Diabetic eye exam ([facility]) 12/20/2021 Last done 12/19/21 Mild non proliterative retinopathy ou [facility] Essential hypertension, benign 11/04/2012 Hyperlipidemia, mixed 11/04/2012 Iron deficiency anemia due to chronic blood loss 09/19/2018 Leukopenia 12/23/[address] 03/08/2022 DPA: Caro () Medicare annual wellness visit, initial 03/08/2022 Medicare Part B: 08/28/2020 Last done: 03/08/2022 Moderate mitral regurgitation 01/22/2017 Multiple gastric ulcers 07/24/202106/2021 SANCHEZ (nonalcoholic steatohepatitis) 07/24/[address] Martinez Paroxysmal atrial fibrillation ([facility]) 05/16/2017 Pulmonary hypertension, secondary 01/22/2017 S/P ablation of atrial fibrillation 01/19/2019 Dr. Chaudhry Secondary esophageal varices with bleeding ([facility]) 07/24/2021 Seeing Gastro: had banding 06/2021 Stage 3b chronic kidney disease ([facility]) 08/21/2021 Thrombocytopenia ([facility]) 12/23/2018 Type 2 diabetes mellitus with stage 3 chronic kidney disease, without long-term current use of insulin ([facility]) 01/17/2017 Type II or unspecified type [...] 1 tablet by mouth daily with breakfast. mqxagyn-mynbtyail-bfmzgku D3 500 mg-5 mcg (200 unit) per [...] 1 tablet by mouth twice daily. ursodiol (REBECCA) 250 mg tablet Take 250 mg by [...] Lymph 1.00 - 4.00 k/uL 0.63 (L) [place]% % 8.4 Abs [place] <0.87 k/uL 0.25 Eosin% % 2.7 Abs [...] extensive. Will order labs at that time. Billy Culp MD documented in this encounterCleveland Clinic [facility]11-14-2022 History of Present illness Narrative* Carolyn Vargas LPN - 09/10/2022 11:10 AM EST EGD done by Dr Martinez. Pt has appointment with you 09/26/22. Scan on 09/10/2022 8:16 AM by External Provider: EGD Scan on 09/10/2022 8:17 AM by External Provider: Miscellaneous Clinical Documents documented in this encounterCleveland Clinic [facility]10-21-2022 Miscellaneous Notes* Telephone Encounter - Jessica Vasquez Ma - 08/17/2022 10:07 AM EDT Please see pt message and advise Jessica Vasquez Ma documented in this encounterCleveland Clinic [facility]09-16-2022 Miscellaneous Notes* Telephone Encounter - Suzie Lechuga PA-C - 07/13/2022 2:22 PM EDT Patient scheduled 09/26/22 * Telephone Encounter - Maria Luz Dejesus MA - 07/13/2022 2:00 PM EDT Patient [...] to pharmacy. No need to notify patient. Maria Luz Dejesus MA Rolando: 02/2022 Nov appointment scheduled Last refill: 02/2022 documented in this encounterCleveland Clinic [facility]07-07-2022 Miscellaneous Notes* Telephone Encounter - Liv Garza LPN - 05/03/2022 2:31 PM EDT Patient notified and verbalized understanding of instructions given.Liv Garza LPN * Telephone Encounter - Dg Willis APRN.SANA - 05/03/2022 1:22 PM EDT Please notify that the urine culture showed no infection. May continue taking the antibiotic if symptoms are improving. If symptoms persist/worsen f/u with primary care. Hematuria noted on ua, patient should have urine retested with pcp in 2-4 weeks to see if persisting. documented in this encounterCleveland Clinic Hill[facility]07-06-2022 Instructions* Patient Instructions* Emili Cano APRN.CNP [...] treated. A physician, nurse practitioner or physician assistant front office manager may treat with a short course of [...] women if symptoms resolve. documented in this encounterC[facility] History of Present illness Narrative* Emili Cano APRN.CNP - 05/02/2022 10:01 AM EDT This note was created using [employer]. Subjective Robbin Morse is a 66 year old female. 66 year old female with PMH of HTN, A-Fib, and DM presents with urinary compaints Sudden onset four days States she has had burning, frequency, and dribbling Denies Fever/chills, N,V,D or abd pain Denies flank pain. Denies skin rash or lesions. No OTC medications or remedies used LOADER States this has happened before. Probably because I don't drink enough water. The history is provided by the patient. No pediatric speech language pathologist was used. UTI This is a new [...] 12/23/[address] 03/08/2022 DPA: Caro () Medicare annual wellness visit, initial 03/08/2022 Medicare Part B: 08/28/2020 Last done: 03/08/2022 Moderate mitral regurgitation 01/22/2017 Multiple gastric ulcers 07/24/202106/2021 SANCHEZ (nonalcoholic steatohepatitis) 07/24/[address] Martinez Paroxysmal atrial fibrillation (HCC) 05/16/2017 Pulmonary hypertension, secondary 01/22/2017 S/P ablation of atrial fibrillation 01/19/2019 Dr. Chaudhry Secondary esophageal varices with bleeding (HCC) 07/24/2021 [...] Calcium], Lisinopril, Pravastatin, and Zocor [Simvastatin] MEDICATIONS [id number] D3 500 mg-5 mcg (200 unit) per [...] 1 tablet by mouth twice daily. ursodiol (REBECCA) 250 mg tablet Take 250 mg by [...] - Patient education for prevention given Denise Cerrato TEACHING PROVIDER (Physician/PA/LAB SUPPORT TECHNICIAN) NOTE OF PERSONAL INVOLVEMENT IN CARE: I have personally seen and examined the patient and performed the medical decision-making components. I have reviewed the Advanced Practice Registered Nurse (LAB SUPPORT TECHNICIAN) Student's documentation and verified the findings in the note as written. Any additions or changes are noted in bold/italics. Signature: Emili Cano Date: 05/02/2022 Time: 1:05 PM documented in this encounterC[facility]05-26-[facility]22 Miscellaneous Notes* Telephone Encounter - Billy Culp MD - 03/22/2022 3:50 PM EDT The following approved medication requests have been transmitted electronically. Signed Prescriptions Disp Refills glimepiride (AMARYL) 4 mg tablet 90 tablet 1 Sig: Take 1 tablet by mouth daily with breakfast. JADE: No Authorizing Provider: BILLY CULP MD * Telephone Encounter - Maria Luz Dejesus MA - 03/22/2022 8:49 AM EDT Patient notified and voiced understanding. She would like the prescription sent to mail away pharmacy. Maria Luz Dejesus MA * Telephone Encounter - Billy Culp MD - 03/21/2022 9:03 PM EDT [...] Fe one a day? documented in this encounterC[facility]05-24-[facility]22 Miscellaneous Notes* Telephone Encounter - Carolyn Vargas LPN - 03/20/2022 1:36 PM EDT Patient notified of results and provider's instructions. Patient verbalizes understanding. Carolyn Vargas LPN * Telephone Encounter - Billy Culp MD - 03/20/2022 1:20 PM EDT Let patient know her bone study was normal. Would advise 600 mg of calcium twice a day, 2,000 international unit(s) 's of Vit D a day and walking several days a week to help keep her bones strong. documented in this encounterC[facility]05-12-2022 Instructions* Patient Instructions* Billy Culp MD - 03/08/2022 12:13 PM EDT E bring in copies of living box and durable power of [place] care for you and Caro. documented in this encounterC[facility]05-12-[facility]22 History of Present illness Narrative* Billy Culp MD - 03/08/2022 10:22 AM EDT [...] 12/23/[address] 03/08/2022 DPA: Caro () Medicare annual wellness visit, initial 03/08/2022 Medicare Part B: 08/28/2020 Last done: 03/08/2022 Moderate mitral regurgitation 01/22/2017 Multiple gastric ulcers 07/24/202106/2021 SANCHEZ (nonalcoholic steatohepatitis) 07/24/[address] Martinez Paroxysmal atrial fibrillation (HCC) 05/16/2017 Pulmonary hypertension, secondary 01/22/2017 S/P ablation of atrial fibrillation 01/19/2019 Dr. Chaudhry Secondary esophageal varices with bleeding (HCC) 07/24/2021 [...] Pulse 72 Resp16 Ht 155.6 cm (5' 1.25) Wt 60.3 kg (133 lb) LMP 10/14/2005 BMI 24.93 kg/m Alert and oriented X 3: YES Body mass index is 24.93 kg/m . Visual acuity: seeing optho See below ASSESSMENT/PLAN: 66 year old female The following prevention plan was discussed during the office visit and provided to the patient: See below Billy Culp MD Chief Complaint Patient presents with: [...] S/P ablation of atrial fibrillation 01/19/2019 Dr. Chaudhry Secondary esophageal varices with bleeding (HCC) 07/24/2021 [...] history ESOPHAGUS ENDOSCOPY W VARICES BANDING 07/24/2021 Friend PAST SURGICAL HISTORY OF c section x [...] 1 tablet by mouth twice daily. ursodiol (REBECCA) 250 mg tablet Take 250 mg by [...] Pulse 72 Resp16 Ht 155.6 cm (5' 1.25) Wt 60.3 kg (133 lb) LMP 10/14/2005 [...] - 4.00 k/uL 0.90 (L) 0.63 (L) [place]% % 9.9 8.4 Abs [place] <0.87 k/uL 0.51 0.25 Eosin% % 2.9 [...] Negative Negative Ketones, Urine Negative Negative Specific [place], Ur 1.005 - 1.030 1.006 Hemoglobin/Blood,Ur Negative [...] decide if A1c needed. - In December feel her A1c was falsely elevate due to [...] which included preparing to see the patient, jawp-hl-bnbm patient care, completing clinical documentation, performing a medically appropriate examination, counseling and educating the patient/family/caregiver and ordering medications, tests, or procedures. Billy Culp MD documented in this encounterC[facility]04-14-[facility]22 History of Present illness Narrative* Carla Soto LPN - 02/08/2022 10:15 AM EDT Patient presents for Hepatitis A and Hepatitis B vaccines. Denies any problems at this time. Tolerated injections well. Carla Soto LPN documented in this encounterC[facility]03-30-2022 Miscellaneous Notes* Telephone Encounter - Carla Soto LPN - 01/24/2022 12:35 PM EDT Patient scheduled for nurse visit 02/08/22 to receive Hepatitis A and Hepatitis B vaccines. Please place order at this time. Carla Soto LPN documented in this encounterC[facility]03-21-2022 Miscellaneous Notes* Telephone Encounter - Carolyn Vargas LPN - 01/15/2022 8:35 AM EDT Please see pt's message. Carolyn Vargas LPN documented in this encounterC[facility]03-23-2017 History of Past illness Narrative* Problem Noted Date Resolved Date Atrial fibrillation 01/17/2017 05/16/2017 Other and unspecified hyperlipidemia 08/25/2009 11/06/2013 Anxiety 06/30/2009 12/29/2015 Cervicalgia 06/30/2009 12/29/2015 documented as of this encounter (statuses as of 01/15/2022) [facility] History of Past illness Narrative* Problem Noted Date Resolved Date Atrial fibrillation 01/17/2017 05/16/2017 Other and unspecified hyperlipidemia 08/25/2009 11/06/2013 Anxiety 06/30/2009 12/29/2015 Cervicalgia 06/30/2009 12/29/2015 documented as of this encounter (statuses as of 01/24/2022) [facility] History of Past illness Narrative* Problem Noted Date Resolved Date Atrial fibrillation 01/17/2017 05/16/2017 Other and unspecified hyperlipidemia 08/25/2009 11/06/2013 Anxiety 06/30/2009 12/29/2015 Cervicalgia 06/30/2009 12/29/2015 documented as of this encounter (statuses as of 02/08/2022) [facility] History of Past illness Narrative* Problem Noted Date Resolved Date Atrial fibrillation 01/17/2017 05/16/2017 Other and unspecified hyperlipidemia 08/25/2009 11/06/2013 Anxiety 06/30/2009 12/29/2015 Cervicalgia 06/30/2009 12/29/2015 documented as of this encounter (statuses as of 03/20/2022) [address]23-2017 History of Past illness Narrative* Problem Noted Date Resolved Date Atrial fibrillation 01/17/2017 05/16/2017 Other and unspecified hyperlipidemia 08/25/2009 11/06/2013 Anxiety 06/30/2009 12/29/2015 Cervicalgia 06/30/2009 12/29/2015 documented as of this encounter (statuses as of 03/20/2022) [facility] of Past illness Narrative* Problem Noted Date Resolved Date Atrial fibrillation 01/17/2017 05/16/2017 Other and unspecified hyperlipidemia 08/25/2009 11/06/2013 Anxiety 06/30/2009 12/29/2015 Cervicalgia 06/30/2009 12/29/2015 documented as of this encounter (statuses as of 03/22/2022) [address]23-2017 History of Past illness Narrative* Problem Noted Date Resolved Date Atrial fibrillation 01/17/2017 05/16/2017 Other and unspecified hyperlipidemia 08/25/2009 11/06/2013 Anxiety 06/30/2009 12/29/2015 Cervicalgia 06/30/2009 12/29/2015 documented as of this encounter (statuses as of 05/02/2022) [address]23[address]2017 History of Past illness Narrative* Problem Noted Date Resolved Date Atrial fibrillation 01/17/2017 05/16/2017 Other and unspecified hyperlipidemia 08/25/2009 11/06/2013 Anxiety 06/30/2009 12/29/2015 Cervicalgia 06/30/2009 12/29/2015 documented as of this encounter (statuses as of 05/03/2022) [address]23-2017 History of Past illness Narrative* Problem Noted Date Resolved Date Atrial fibrillation 01/17/2017 05/16/2017 Other and unspecified hyperlipidemia 08/25/2009 11/06/2013 Anxiety 06/30/2009 12/29/2015 Cervicalgia 06/30/2009 12/29/2015 documented as of this encounter (statuses as of 07/13/2022) [address]23-2017 History of Past illness Narrative* Problem Noted Date Resolved Date Atrial fibrillation 01/17/2017 05/16/2017 Other and unspecified hyperlipidemia 08/25/2009 11/06/2013 Anxiety 06/30/2009 12/29/2015 Cervicalgia 06/30/2009 12/29/2015 documented as of this encounter (statuses as of 08/17/2022) [address]23-2017 History of Past illness Narrative* Problem Noted Date Resolved Date Atrial fibrillation 01/17/2017 05/16/2017 Other and unspecified hyperlipidemia 08/25/2009 11/06/2013 Anxiety 06/30/2009 12/29/2015 Cervicalgia 06/30/2009 12/29/2015 documented as of this encounter (statuses as of 09/10/2022) [address]2017 History of Past illness Narrative* Problem Noted Date Resolved Date Atrial fibrillation 01/17/2017 05/16/2017 Other and unspecified hyperlipidemia 08/25/2009 11/06/2013 Anxiety 06/30/2009 12/29/2015 Cervicalgia 06/30/2009 12/29/2015 documented as of this encounter (statuses as of 09/24/2022) [place] [address] History of Past illness Narrative* Problem Noted Date Resolved Date Atrial fibrillation 01/17/2017 05/16/2017 Other and unspecified hyperlipidemia 08/25/2009 11/06/2013 Anxiety 06/30/2009 12/29/2015 Cervicalgia 06/30/2009 12/29/2015 documented as of this encounter (statuses as of 09/26/2022) [place] [address] History of Past illness Narrative* Problem Noted Date Resolved Date Atrial fibrillation 01/17/2017 05/16/2017 Other and unspecified hyperlipidemia 08/25/2009 11/06/2013 Anxiety 06/30/2009 12/29/2015 Cervicalgia 06/30/2009 12/29/2015 documented as of this encounter (statuses as of 09/27/2022) [place] [address] History of Past illness Narrative* Problem Noted Date Resolved Date Atrial fibrillation 01/17/2017 05/16/2017 Other and unspecified hyperlipidemia 08/25/2009 11/06/2013 Anxiety 06/30/2009 12/29/2015 Cervicalgia 06/30/2009 12/29/2015 documented as of this encounter (statuses as of 11/26/2022) [address]2017 History of Past illness Narrative* Problem Noted Date Resolved Date Atrial fibrillation 01/17/2017 05/16/2017 Other and unspecified hyperlipidemia 08/25/2009 11/06/2013 Anxiety 06/30/2009 12/29/2015 Cervicalgia 06/30/2009 12/29/2015 documented as of this encounter (statuses as of 12/06/2022) [address]2017 History of Past illness Narrative* Problem Noted Date Resolved Date Atrial fibrillation 01/17/2017 05/16/2017 Other and unspecified hyperlipidemia 08/25/2009 11/06/2013 Anxiety 06/30/2009 12/29/2015 Cervicalgia 06/30/2009 12/29/2015 documented as of this encounter (statuses as of 01/03/2023) [address]-2017 History of Past illness Narrative* Problem Noted Date Resolved Date Atrial fibrillation 01/17/2017 05/16/2017 Other and unspecified hyperlipidemia 08/25/2009 11/06/2013 Anxiety 06/30/2009 12/29/2015 Cervicalgia 06/30/2009 12/29/2015 documented as of this encounter (statuses as of 03/26/2023) [facility] note* Diagnosis Type 2 diabetes mellitus with [...] nonalcoholic liver disease [facility]* Diagnosis Need for vaccination- Primary Need for prophylactic vaccination and inoculation against unspecified single disease documented in this encounter [facility]* Diagnosis Onset Date Resolution Status Atrial fibrillation acute Essential hypertension chron ic Cirrhosis [facility] Work Phone: Evaluation note* Diagnosis Need for vaccination- Primary Need for prophylactic vaccination and inoculation against unspecified single disease documented in this encounter [facility] note* Diagnosis Onset Date Resolution Status Cirrhosis acute Cirrhosis [facility] Work Phone: evaluation note* Diagnosis Medicare annual wellness visit, initial- Primary Routine general medical examination at a health care facility Type 2 diabetes mellitus with stage 3b chronic kidney disease, without long-term current use of insulin (HCC) Diabetic eye exam ([facility]) Type II or unspecified type diabetes mellitus [...] type 2 (HCC) [facility]* Diagnosis Diabetes mellitus type 2 (HCC) [facility]* Diagnosis Urinary frequency- Primary Dysuria documented in this encounter [facility] note* Diagnosis Onset Date Resolution Status Cirrhosis acute [facility] Work Phone: Evaluation note* Diagnosis Encounter for screening mammogram for breast cancer Encounter for immunization- Primary Need for other specified prophylactic vaccination against single bacterial disease documented in this encounter [facility] note* Diagnosis Type 2 diabetes mellitus with [...] Calculus of kidney [facility]* Diagnosis Type 2 diabetes mellitus with stage 3b chronic kidney disease, without long-term current use of insulin (HCC) documented in this encounter [facility] note* Diagnosis Onset Date Resolution Status Cirrhosis chronic Diarrhea chronic Esophageal varices chronic Left patella fracture noneac tive Left patella fracture noneac tive Left patella fracture noneac tive [facility] Work Phone: Evaluation note* Diagnosis Essential hypertension, benign documented in this encounter [facility] noteNo assessment information [facility]WMed[facility] Work Phone: Evaluation note* Diagnosis Hypercalcemia- Primary documented in this encounter [facility] note* Diagnosis Cirrhosis of liver without ascites, unspecified hepatic cirrhosis type- Primary [facility] Cirrhosis of liver without ascites, unspecified hepatic cirrhosis type- Primary [facility]* Diagnosis Encounter for screening mammogram for breast cancer documented in this encounter [facility] note* Diagnosis Onset Date Resolution Status Cirrhosis chronic Diarrhea chronic Esophageal varices [facility] Work Phone: Evaluation note* Diagnosis Onset Date Resolution Status Cirrhosis chronic Esophageal varices [facility] Work Phone: Evaluation note* Diagnosis Cirrhosis of liver without ascites, unspecified hepatic cirrhosis type- Primary [facility]* Diagnosis Onset Date Resolution Status Cirrhosis chronic Esophageal varices chronic Atrial fibrillation chronic Essential hypertension [facility] Work Phone: Evaluation note* Diagnosis Essential hypertension, benign- Primary Type 2 diabetes mellitus with stage 3b chronic kidney disease, without long-term current use of insulin (HCC) Hyperlipidemia, mixed Mixed hyperlipidemia Iron deficiency anemia due to chronic blood loss Iron deficiency anemia secondary to blood loss (chronic) Stage 3b chronic kidney disease (HCC) Paroxysmal atrial fibrillation (HCC) Atrial fibrillation Thrombocytopenia (HCC) Thrombocytopenia, unspecified Vitamin B12 deficiency Other B-complex deficiencies SANCHEZ (nonalcoholic steatohepatitis) Other chronic nonalcoholic liver disease Medication management Encounter for long-term (current) use of other medications documented in this encounter [facility] note* Diagnosis Encounter for Medicare annual wellness exam- Primary Routine general medical examination at a health care facility Type 2 diabetes mellitus with stage 3b chronic kidney disease, without long-term current use of insulin (HCC) Essential hypertension, benign Hyperlipidemia, mixed Mixed hyperlipidemia Diabetic eye exam (HCC) Type II or unspecified type diabetes mellitus without mention of complication, not stated as uncontrolled Paroxysmal atrial fibrillation (HCC) Atrial fibrillation Iron deficiency anemia due to chronic blood loss Iron deficiency anemia secondary to blood loss (chronic) Stage 3b chronic kidney disease (HCC) Pulmonary hypertension (HCC) Other chronic pulmonary heart diseases Thrombocytopenia (HCC) Thrombocytopenia, unspecified Leukopenia, unspecified type Vitamin B12 deficiency Other B-complex deficiencies SANCHEZ (nonalcoholic steatohepatitis) Other chronic nonalcoholic liver disease Cirrhosis, nonalcoholic (HCC) Cirrhosis of liver without mention of alcohol Secondary esophageal varices with bleeding (HCC) Esophageal varices with bleeding in diseases classified elsewhere Advance directive discussed with patient Other specified counseling Anemia due to other cause, not classified Hypothyroidism, acquired Unspecified hypothyroidism Mild protein-calorie malnutrition (HCC) Malnutrition of mild degree Bilateral leg edema Edema [facility]* Diagnosis Hypothyroidism, acquired- Primary Unspecified hypothyroidism Bilateral leg edema Edema documented in this encounter [facility] note* Diagnosis Anitra-Jackson tear- Primary Gastroesophageal laceration-hemorrhage syndrome documented in this encounter [facility] note* Diagnosis Encounter for screening mammogram for breast cancer [facility]* Diagnosis Anitra-Jackson tear- Primary Gastroesophageal laceration-hemorrhage syndrome Anemia, unspecified type Persistent dry cough Cough documented in this encounter [facility] note* Diagnosis Type 2 diabetes mellitus with stage 3b chronic kidney disease, without long-term current use of insulin (HCC)- Primary Essential hypertension, benign Hyperlipidemia, mixed Mixed hyperlipidemia Hypothyroidism, acquired Unspecified hypothyroidism Hypercalcemia Paroxysmal atrial fibrillation (HCC) Atrial fibrillation Pulmonary hypertension (HCC) Other chronic pulmonary heart diseases Cirrhosis, nonalcoholic (HCC) Cirrhosis of liver without mention of alcohol Secondary esophageal varices without bleeding (HCC) Esophageal varices without mention of bleeding in diseases classified elsewhere Stage 3b chronic kidney disease (HCC) Thrombocytopenia (HCC) Thrombocytopenia, unspecified Medication management Encounter for long-term (current) use of other medications Vitamin B12 deficiency Other B-complex deficiencies Iron deficiency anemia due to chronic blood loss Iron deficiency anemia secondary to blood loss (chronic) [facility]* Diagnosis Nondisplaced fracture of fifth metatarsal bone, right foot, initial encounter for closed fracture- Primary Foot pain, right Pain in limb Foot pain, right Pain in limb documented in this encounter [facility] note* Diagnosis Foot pain, right Pain in limb documented in this encounter [facility] note* Diagnosis Hypothyroidism, acquired- Primary Unspecified hypothyroidism documented in this encounter [facility] note* Diagnosis Cirrhosis of liver without ascites, unspecified hepatic cirrhosis type- Primary [facility]* Diagnosis Diabetic eye exam (HCC)- Primary Type II or unspecified type diabetes mellitus without mention of complication, not stated as uncontrolled [facility]* Diagnosis Encounter for Medicare annual wellness exam- Primary Routine general medical examination at a health care facility Type 2 diabetes mellitus with stage 3b chronic kidney disease, without 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 (HCC) Diabetic eye exam (HCC) Type II or unspecified type diabetes mellitus without mention of complication, not stated as uncontrolled Essential hypertension, benign Hyperlipidemia, mixed Mixed hyperlipidemia Hypothyroidism, acquired Unspecified hypothyroidism Bilateral leg edema Edema Iron deficiency anemia due to chronic blood loss Iron deficiency anemia secondary to blood loss (chronic) Anemia due to other cause, not classified Paroxysmal atrial fibrillation (HCC) Atrial fibrillation Stage 3b chronic kidney disease (HCC) Leukopenia, unspecified type Pulmonary hypertension (HCC) Other chronic pulmonary heart diseases Thrombocytopenia Thrombocytopenia, unspecified Vitamin B12 deficiency Other B-complex deficiencies Cirrhosis, nonalcoholic (HCC) Cirrhosis of liver without mention of alcohol SANCHEZ (nonalcoholic steatohepatitis) Other chronic nonalcoholic liver disease Secondary esophageal varices without bleeding (HCC) Esophageal varices without mention of bleeding in diseases classified elsewhere Eustachian tube dysfunction, left Advance directive discussed with patient Other specified counseling Screening for depression Encounter for screening examination for other mental health and behavioral disorders [facility] Diagnosis Onset Date Resolution Status Admit Date Cirrhosis chronic June 17 025 1:24pm Esophageal varices chronic June 17, 2025 1:24pm [place] [facility] Work Phone: Evaluation note* Diagnosis Cirrhosis of liver with ascites, unspecified hepatic cirrhosis type- Primary CKD stage 3b, GFR 30-44 ml/min Generalized abdominal pain Abdominal pain, generalized [facility] Author Minh Friend [facility] January 02, 2024 6:41am Note Date/Time January 02, 2024 6:41 am [facility] Medical Records Department [address] [place] [id number] History & Physical Exam 01/02/24 0641 MR#: [id number] Acct: [id number] Name: ROBBIN MORSE Rep #:[id number] : 1955 68 From: Minh Martinez DO PCP: Dr. Billy Culp MD Status:[facility] Location: [place] [address] History and Physical Date of Admission: 01/02/24 [facility] Complaint: 4 mo f/u Details: ROBBIN TESSY, is a 68 F who presents to the office today for follow up. *[facility] hospitalization [id number]. [facility] ED with hematemesis in the setting of Xarelto with a hemoglobin of 7.6. Gastroenterology consulted and EGD performed with findings as below. During hospitalization a new diagnosis of liver cirrhosis r/t SANCHEZ was found. Bloodwork for autoimmune labs, autoimmune hepatitis, Paul?s disease and liver cancer tumor marker were within normal limits. EGD 07.22.21 2 columns of nonbleeding grade 2 esophageal varices in the lower third of the esophagus with 4 bleeding angiodysplastic lesions in the anterior wall of the gastric body and 2 bleeding angiodysplastic lesions in the duodenum. US 07.22.21 hepatic measurement 13.7cm with coarse echotexture with microlobulated contours. EGD 07.24.21 found erythematous mucosa of the stomach and nonbleeding gastric ulcers with no stigmata of recent bleeding as well as duodenitis and chronic gastritis with portal hypertensive gastropathy. Esophageal banding performed forgrade II esophageal varices. OV 08.09.21 start colestipol, continue protonix and ursodiol. OV 11.06.21 Continues with PPI and ursodiol; not taking lactulose. CT abd/pel 11.17.21 found diffuse contour of the liver consistent with cirrhotic changes and diffuse fatty infiltration of the liver. Small amount of fluid in keeping with ascites. Dilation of proximal common bile duct with transverse dimension of 1.6cm. Mild splenomegaly. Varicosities seen in splenic hilum. Smallhiatal hernia. Diverticulosis. US abd and elastography 11.20.21 with liver measurement 13.5cm with heterogeneousechogenicity of the liver with a stiffness of 18 kPa compatible with F4. EGD 12.13.21 recently bleeding grade III esophageal varices, banded; portal hypertensive gastropathy. No specimens collected. OV 02.05.22 without HE signs. Loose stools with diet triggers are a difficulty. OV 04.06.22repeat EGD and biochemical workup. EGD 05.29.22 small <5mm esophageal varices; portal HTN gastropathy;duodenitis with rare neutrophils. OV 06.22.22 continue ursodiol. Update labs and imaging. EGD 09.10.22 noting Grade I esophageal varices, incompletely eradicated, banded; portal HTN gastropathy. No specimens collected. OV 09.25.22 continued postprandial diarrhea that is bothersome during travel. US RUQ .. stable lobular contour of the liver; stable CBD dilation 16.3mm. OV 4.. recently returned from visiting her son in [place]. Denies difficulty with confusion/brain fog, pruritis, jaundice, balance difficulty, sleep disturbance, edema. She did break her kneecap in September after tripping over a curb. Continues ursodiol, famotidine and PRN colestipol. [facility] liver transplant/hepatology/gastroenterology clinic 10.18.22 with recommendation for transplant if MELD remains above 15 consistently. MELD Child-Santizo plt INR AFP ESR/CRP 07.24.21 -- -- -- -- -- --/-- ASM, AMA WNL 08.09.21 16 -- 106 1.1 -- --/-- 03.. 11 -- 73 1.0 -- 26/7.43 haptoglobin, ANCA, LAVERNE comp, hepatitis WNL. A1c H7.7, LDH H272, LALI H84 05.. 11 -- 76 1.1 -- 26/5.53 07.18.22 9 A 69 1.0 WNL --/-- 09.18.22 11 A 64 1.2 -- --/-- 05.24.23 10 A 51 1.1 22/ 3.99 OV 12.- Pt stable since last visit. Has had increase in heartburn over the last month or so. Denies dysphagia, abdominal pain. BM are normal and goes 1-2 times a day. Is not having any swelling, dizziness or confusion. She was on PPIbefore but that caused her diarrhea therefore was changed to famotidine initially 20 mg twice daily and then 40 mg once daily. Patient also going for cruise about in November 2023 Demdex. ROS Const Constitutional: No fatigue ENT ENT: No difficulty swallowing Gastro GI: Positive for heartburn; No abdominal pain, belching, bloating, change in bowel habits, change in stool character, coffee ground emesis, constipation, cramping, diarrhea, difficulty swallowing, feeling full early, excessive flatus, incontinent of stools, Vomiting blood/hematemesis, Blood in stool, loose stools, Black,tarry stools, nausea/dyspepsia, pain with swallowing, vomiting or other Musc Musculoskeletal: No joint pain Skin Skin: No yellowing of the eye or itchy eyes Psych Psychiatric: No anxiety and No depression Endo Endocrine: No fatigue Aller/Imm Allergy/Immunologic: No itchy eyes Kyle/Lymp Hematologic/Lymphatic: No easy bleeding or easy bruising Exam Const General: cooperative, no acute distress and well developed Nutritional Appearance: average body habitus Orientation: alert, awake and oriented x3 [facility] Head: normocephalic and atraumatic Nose: external nose normal Face and sinus: normal facial exam Mouth: moist mucous membranes Eyes Pupils: PERRL EOM: EOM intact bilaterally Neck Neck: normal visual inspection, no meningeal signs and trachea midline Carotids: no bruits Chest Chest palpation & inspection: normal inspection of the chest Resp Effort & Inspection: normal respiratory effort and symmetric chest movement Auscultation: Bilateral: Clear to Auscultation Cardio Palpation: normal PMI Rate: regular rate Rhythm: regular rhythm Heart Sounds: S1 normal and S2 normal Other: Systolic murmur over right second ICS and LLSB. GI Auscultation: normal bowel sounds Percussion: normal to percussion Palpation: soft, no hepatosplenomegaly and no guarding Other: No clinically palpable ascites. Spleen not palpable. General: bimanual renal exam normal bilaterally, bladder normal to inspection and bladder normal to palpation Bimanual Exam- Vagina & Uterus: bladder normal to palpation Musc Musculoskeletal: No joint tenderness, joint redness, joint warmth or decreased range of motion Thoracic/Lumbar Spine: thor and lumb spine abnorm to inspection Skin General: rashes and/or lesions noted, turgor normal and no erythema Wounds: wound noted Neuro General: patient alert, patient awake, patient oriented x3 and no focal motor deficits Speech: speech normal Motor: muscle tone normal throughout Extrem General: normal exam except as noted Other: No clinically pitting edema. Psych Appearance: grossly normal Mood: congruent mood Affect: normal affect Attitude: cooperative Quality Reporting Tobacco Screening ([facility] 138) Smoking Status: Never smoker Assessment and Plan Assessment and Plan (1) Cirrhosis: Status: Chronic Qualifiers: Ascites presence: without ascites Hepatic cirrhosis type: unspecified hepatic cirrhosis Qualified Code(s): K74.60 - Unspecified cirrhosis of liver Plan: At this time her meld is 14 as per 3 last MELD score in April 2023. Child-Santizo class A. August 2023 but that does not have PT/INR. Her platelet count is 45,000, creatinine 1.29, EGFR 4060 mill per minute total bilirubin 1.0. A1c 7.0. Fasting profile within normal limit. B12 5. H&H 9.5/28.2. WBC count 3.3thousand. She denies any recent GI bleeding including hematemesis melena or hematochezia. No acute signs and symptoms of encephalopathy. Follow-up labs next including MELD labs in about 3 months along with AFP and MRItriple phase as HCC protocol. Patient also needs variceal surveillance with EGD. Her last EGD was in August2022 which showed grade 1 esophageal varices, incompletely eradicated, banded, PHG. With increased in the GERD symptoms heartburn recommended pantoprazole 40 mg daily. If patient gets diarrhea in about 1 to 2 weeks advised to cut down to 20mg daily. Will schedule EGD with Dr. Martinez. She will be traveling to [place] and and had already had hepatitis a and hepatitis B vaccinations. She was recommended miliaria, typhoid and yellow fever vaccine. Yellow fever vaccine is live vaccine otherwise rest are killed or inactivated. She is not on immunosuppressant medication or has autoimmune disease therefore she can have yellow fever vaccine too. Advised follow-up with PCP for vaccination. She will also needs chemoprophylaxis for malaria. Follow with PCP. (2) Esophageal varices: Status: Chronic Qualifiers: Esophageal varices bleeding: without bleeding Esophageal varices type: unspecified type Qualified Code(s): I85.00 - Esophageal varices without bleeding Plan: As mentioned above, we will schedule EGD with Dr. Martinez. Orders: Orders CBC W/Diff, Automated 3 Months I85.00 - Esophageal varices without bleeding, K74.60 - Unspecified cirrhosis of liver Comprehensive Metabolic Profil 3 Months I85.00 - Esophageal varices without bleeding, K74.60 - Unspecified cirrhosis of liver CRP 3 Months I85.00 - Esophageal varices without bleeding, K74.60 - Unspecified cirrhosis of liver AFP, Tumor Marker 3 Months I85.00 - Esophageal varices without bleeding, K74.60 - Unspecified cirrhosis of liver Vitamin D,25 Hydroxy 3 Months I85.00 - Esophageal varices without bleeding, K74.60 - Unspecified cirrhosis of liver Prothrombin Time w/INR 3 Months I85.00 - Esophageal varices without bleeding, K74.60 - Unspecified cirrhosis of liver Ammonia 3 Months I85.00 - Esophageal varices without bleeding, K74.60 - Unspecified cirrhosis of liver MRI Abd WITH and W/O Contrast 3 Months I85.00 - Esophageal varices without bleeding, K74.60 - Unspecified cirrhosis of liver Medications: New pantoprazole Take 1 hour before breakfast. 40 mg PO .breakfast 1 month 30 tabs 2RF Discontinued famotidine Discontinued Reason: Discontinued by PCP/other physicians 40 mg PO DAILY 90tabs 3RF I have examined the patient and the H&P has been reviewed. There are no clinicalchanges since date of exam. 01/02/24 0641 <Electronically signed by Minh Martinez DO> Cosigner Signature (if applicable): CC: Dr. Billy Culp MD; Minh Martinez DO~ Signed [facility] Work Phone: [facility] for referral (narrative)* Diagnostic Procedure Only (Routine) - Pending Review Specialty Diagnoses / Procedures Referred By Vitaly brown Referred To Contact BR IMAGING Diagnoses Encounter for screening mammogram for breast cancer Procedures ELEANOR SCREENING SCREENING MAMMOGRAPHY BI 2-VIEW BREAST INC Billy Lovell MD [address] [place] [address] [place] [address] Referral ID Status Reason Start Date Expiration Date Visits Requested Visits Authorized [id number] Pending Review Auto-Generat ed Referral 2 10/19/2023 1 1 [facility] for referral (narrative)* Diagnostic Procedure Only (Routine) - Pending Review Specialty Diagnoses / Procedures Referred By Vitaly brown Referred To Contact BR IMAGING Diagnoses Encounter for screening mammogram for breast cancer Procedures ELEANOR SCREENING SCREENING MAMMOGRAPHY BI 2-VIEW BREAST INC Billy Lovell MD [facility] [place] [address] [facility] [address] [place] [address] Referral ID Status Reason Start Date Expiration Date Visits Requested Visits Authorized [id number] Pending Review Auto-Generat ed Referral 08/28/2023 09/26/2024 1 1 [facility] for referral (narrative)* Diagnostic Procedure Only (Routine) - New Request Specialty Diagnoses / Procedures Referred By Contac t Referred To Contact BR IMAGING Diagnoses Encounter for screening mammogram for breast cancer Procedures ELEANOR SCREENING W CELESTINO SCREENING DIGITAL BREAST TOMOSYNTHESIS BI SCREENING MAMMOGRAPHY BI 2-VIEW BREAST INC CAD Billy Culp MD [address] [place] [address] [facility] [address] [place] [address] Referral ID Status Reason Start Date Expiration Date Visits Requested Visits Authorized [id number] New Request Auto-Generat ed Referral 07/29/2024 08/28/2025 1 1 [facility] for referral (narrative)* Diagnostic Procedure Only (Urgent) - Closed Specialty Diagnoses / Procedures Referred By Vitaly t Referred To Contact XR IMAGING Diagnoses Foot pain, right Procedures XR FOOT GENERAL 3V AP/LAT/OBL RIGHT RADEX FOOT COMPLETE MINIMUM 3 VIEWS Ryan Kidd MD [address] [place] [address] [place] [address] Referral ID Status Reason Start Date Expiration Date V isits Requested Visits Authorized [id number] Closed Auto-Generate d Referral 11/09/2024 12/09/2025 1 1 [facility] for referral (narrative)No reason for referral information [facility]WMedina [facility] Work Phone: Reason for visit Narrative* Diagnostic Procedure Only (Urgent) - Closed Specialty Diagnoses / Procedures Referred By Taishaac t Referred To Contact XR IMAGING Diagnoses Foot pain, right Procedures XR FOOT GENERAL 3V AP/LAT/OBL RIGHT RADEX FOOT COMPLETE MINIMUM 3 VIEWS Ryan Kidd MD [address] [facility] [address] [place] [id number] Referral ID Status Reason Start Date Expiration Date V isits Requested Visits Authorized [id number] Closed Auto-Generate d Referral 11/09/2024 12/09/2025 1 1 [facility] Summary Purpose Family History No Family History Records FoundNo Family History Records FoundNo Family History Records FoundNo Family History Records FoundNo Family History Records FoundNo Family History Records FoundNo Family History Records Found Advance Directives No Advanced Directives Records FoundDocuments on File Type Date 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 Advance Directive(s) 01/19/2019 6:15 AM Advance Directive(s) 12/30/2018 2:01 PM Advance Directive(s) 10/08/2018 11:32 AM Advance Directive(s) 10/03/2018 2:15 PM Advance Directive Response Recorded Date/ Time Living Will Yes December 12 10:56am Power of Steno Pool Supervisor Yes December 12, 2021 10:56am Advance Directive Response Recorded Date/ Time Name of Medical Power of Steno Pool Supervisor CARO MORSE - December 12, 2021 10:56am Living Will Yes February 26, 2022 1: 04pm Power of Steno Pool Supervisor Yes February 26, 2022 1:04pm Advance Directive Response Recorded Date/ Time Name of Medical Power of Steno Pool Supervisor SERGIO kearney February 26, 2022 1:04pm Living Will Yes May 28, 2022 8:44am Power of Steno Pool Supervisor Yes May 28 8:44am Advance Directive Response Recorded Date/ Time Name of Medical Power of Steno Pool Supervisor SERGIO Wilson nsky February 26, 2022 1:04pm Name of Medical Power of Steno Pool Supervisor SPOUSE May 28, 2022 8:44am Living Will Yes May 28, 2022 8:44am Power of Steno Pool Supervisor Yes May 28 8:44am Advance Directive Response Recorded Date/ Time Name of Medical Power of Steno Pool Supervisor SPOUSE May 28, 2022 7:44am Name of Medical Power of Steno Pool Supervisor September 06, 2022 11:26am Living Will Yes September 06, 11:26am Power of Steno Pool Supervisor Yes September 06, 2022 11:26am Documents on File Type Date Recorded 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 Advance Directive(s) 10/04/2022 12:16 PM Advance Directive Response Recorded Date/ Time Name of Medical Power of Steno Pool Supervisor September 06, 2022 11:26am Living Will Yes September 06, 022 11:26am Power of Steno Pool Supervisor Yes September 06, 2022 11:26am Advance Directive Response Recorded Date/ Time Living Will Yes September 06, 12:26pm Power of Steno Pool Supervisor Yes September 06, 2022 12:26pm Documents on File Type Date Recorded 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 Advance Directive(s) 10/04/2022 12:16 PM Advance Directive Response Recorded Date/ Time Living Will Yes September 06, 11:26am Power of Steno Pool Supervisor Yes September 06, 2022 11:26am Advance Directive Response Recorded Date/ Time Name of Medical Power of Steno Pool Supervisor CARO MORSE December 31, 2023 12:41pm Living Will Yes December 31, 2023 12:41pm Power of Steno Pool Supervisor Yes December 30 12:41pm Advance Directive Response Recorded Date/ Time Name of Medical Power of Steno Pool Supervisor CARO MORSE December 31, 2023 1:41pm Living Will Yes December 31, 2023 1:41pm Power of Steno Pool Supervisor Yes December 30 1:41pm Hospital Course Note HNO ID: [id number] Author: Preethi Rivers Service: Cardiovascular Disease Author Type: Nurse Practitioner Type: Discharge Summary Filed: 01/20/2019 5:14 PM Note Text: Attestation signed by Kailee Sanchez MD at 01/21/2019 12:40 PM Kailee Sanchez MD Electrophysiology staff pager [phone] January 21, 2019 12:40 PM DISCHARGE SUMMARY [...] highest risk fo (more content not included)... Chief Complaint and Reason for Visit Chief Complaint AFIB. PREV ANJELICA Brown. 3 M FU CIRRHOSIS CIRRHOSIS OF LIVER INT LABS Reason for Visit Atrial fibrillation Essential hypertension Cirrhosis Chief Complaint 3 M FU CIRRHOSIS CIRRHOSIS OF LIVER INT LABS 3 MON FU Reason for Visit Cirrhosis Cirrhosis Chief Complaint 3 MON FU 2 WK FU CIRRHOSIS OF LIVER Reason for Visit Cirrhosis Cirrhosis Chief Complaint 2 WK FU e orders Reason for Visit Cirrhosis Chief Complaint e orders 2 WK FU left knee Rm 3 xray left knee Rm 4 xray CIRRHOSIS OF LIVER LEFT KNEE Rm 4 xray Reason for Visit Cirrhosis Diarrhea Esophageal varices Left patella fracture Left patella fracture Left patella fracture Chief Complaint E ORDERS Chief Complaint E ORDERS 4 M FU K74.60 Reason for Visit Cirrhosis Diarrhea Esophageal varices Chief Complaint E ORDERS 4 M FU K74.60 E-ORDER Reason for Visit Cirrhosis Diarrhea Esophageal varices Chief Complaint K74.60 E-ORDER First Visit 60 Reason for Visit Cirrhosis Esophageal varices Chief Complaint CIRRHOSIS OF THE VENICE ER Chief Complaint CIRRHOSIS OF THE VENICE ER FU 60 MIN 1 Y FU Reason for Visit Cirrhosis Esophageal varices Atrial fibrillation Essential hypertension Chief Complaint Admit Date CIRRHOSIS WITH VARICES, include spleen A pril 2024 8:06am Chief Complaint Admit Date E ORDERS June 08, 2025 8: 02am Chief Complaint Admit Date E ORDERS June 08, 2025 8: 02am 4 M FU June 17, 2025 1: 24pm Reason for Visit Admit Date Cirrhosis June 17, 2025 1: 24pm Esophageal varices June 17, 2025 1: 24pm Reason for Referral Specialty Diagnoses / Procedures Referred By Vitaly brown Referred To Contact Diagnoses Cirrhosis of liver without ascites, unspecified hepatic cirrhosis type Procedures US ABDOMEN RUQ/LIVER/GB America Mcclure MD [address] [place] [address] Referral ID Status Reason Start Date Expiration Date V isits Requested Visits Authorized [id number] New Request 06/20/2023 07/14/2024 1 1 Specialty Diagnoses / Procedures Referred By Contac t Referred To Contact Orthopedics Diagnoses Nondisplaced fracture of fifth metatarsal bone, right foot, initial encounter for closed fracture Procedures CONSULT TO ORTHOPAEDICS OFFICE/OUTPATIENT [facility] 60 MINUTES Ryan Kidd MD [address] [place] [address] Referral ID Status Reason Start Date Expiration Date Visits Requested Visits Authorized [id number] Authorized PCP Requested Referral 11/09/2024 11/09/2025 1 1 Specialty Diagnoses / Procedures Referred By Contac t Referred To Contact XR IMAGING Diagnoses Foot pain, right Procedures XR FOOT GENERAL 3V AP/LAT/OBL RIGHT RADEX FOOT COMPLETE MINIMUM 3 VIEWS Ryan Kidd MD [address] [place] [address] [place] [address] Referral ID Status Reason Start Date Expiration Date V isits Requested Visits Authorized [id number] Closed Auto-Generate d Referral 11/09/2024 12/09/2025 1 1 Additional Source Comments INFORMATION SOURCE (unrecogn ized section and content) DATE CREATED AUTHOR [facility]17/[facility] DATE CREATED AUTHOR AUTHOR'S ORGANIZ ATION 05/15/2018 [facility] DATE CREATED AUTHOR AUTHOR'S ORGANIZ ATION 01/24/2019 [facility] DATE CREATED AUTHOR AUTHOR'S ORGANIZ ATION 04/10/2019 [facility] DATE CREATED AUTHOR AUTHOR'S ORGANIZ ATION 08/02/2025 [facility] DATE CREATED AUTHOR AUTHOR'S ORGANIZ ATION 09/06/2025 [facility] DATE CREATED AUTHOR AUTHOR'S ORGANIZ ATION 09/07/2025 [facility] Source Comments (unrecognize d section and content) In the event this informatio n is protected by the Federal Confidentiality of Alcohol and Drug Abuse Patient Records regulations: The Federal rules restrict any use of the information to criminally investigate or prosecute any alcohol or drug abuse patient.[facility] the event this information is protected by the Federal Confidentiality of Alcohol and Drug Abuse Patient Records regulations: The Federal rules restrict any use of the information to criminally investigate or prosecute any alcohol or drug abuse patient.[facility] the event this information is protected by the Federal Confidentiality of Alcohol and Drug Abuse Patient Records regulations: The Federal rules restrict any use of the information to criminally investigate or prosecute any alcohol or drug abuse patient.[facility] the event this information is protected by the Federal Confidentiality of Alcohol and Drug Abuse Patient Records regulations: The Federal rules restrict any use of the information to criminally investigate or prosecute any alcohol or drug abuse patient.[facility] the event this information is protected by the Federal Confidentiality of Alcohol and Drug Abuse Patient Records regulations: The Federal rules restrict any use of the information to criminally investigate or prosecute any alcohol or drug abuse patient.[facility] the event this information is protected by the Federal Confidentiality of Alcohol and Drug Abuse Patient Records regulations: The Federal rules restrict any use of the information to criminally investigate or prosecute any alcohol or drug abuse patient.[facility] the event this information is protected by the Federal Confidentiality of Alcohol and Drug Abuse Patient Records regulations: The Federal rules restrict any use of the information to criminally investigate or prosecute any alcohol or drug abuse patient.[facility] the event this information is protected by the Federal Confidentiality of Alcohol and Drug Abuse Patient Records regulations: The Federal rules restrict any use of the information to criminally investigate or prosecute any alcohol or drug abuse patient.[facility] Hospital[facility] the event this information is protected by the Federal Confidentiality of Alcohol and Drug Abuse Patient Records regulations: The Federal rules restrict any use of the information to criminally investigate or prosecute any alcohol or drug abuse patient.[facility] Hospital[facility] the event this information is protected by the Federal Confidentiality of Alcohol and Drug Abuse Patient Records regulations: The Federal rules restrict any use of the information to criminally investigate or prosecute any alcohol or drug abuse patient.[facility] Hospital[facility] the event this information is protected by the Federal Confidentiality of Alcohol and Drug Abuse Patient Records regulations: The Federal rules restrict any use of the information to criminally investigate or prosecute any alcohol or drug abuse patient.[facility] Hospital[facility] the event this information is protected by the Federal Confidentiality of Alcohol and Drug Abuse Patient Records regulations: The Federal rules restrict any use of the information to criminally investigate or prosecute any alcohol or drug abuse patient.[facility] Hospital[facility] the event this information is protected by the Federal Confidentiality of Alcohol and Drug Abuse Patient Records regulations: The Federal rules restrict any use of the information to criminally investigate or prosecute any alcohol or drug abuse patient.[facility] Hospital[facility] the event this information is protected by the Federal Confidentiality of Alcohol and Drug Abuse Patient Records regulations: The Federal rules restrict any use of the information to criminally investigate or prosecute any alcohol or drug abuse patient.[facility] Hospital[facility] the event this information is protected by the Federal Confidentiality of Alcohol and Drug Abuse Patient Records regulations: The Federal rules restrict any use of the information to criminally investigate or prosecute any alcohol or drug abuse patient.[facility] Hospital[facility] the event this information is protected by the Federal Confidentiality of Alcohol and Drug Abuse Patient Records regulations: The Federal rules restrict any use of the information to criminally investigate or prosecute any alcohol or drug abuse patient.[facility] Hospital[facility] the event this information is protected by the Federal Confidentiality of Alcohol and Drug Abuse Patient Records regulations: The Federal rules restrict any use of the information to criminally investigate or prosecute any alcohol or drug abuse patient.[facility] HospitalIn the event this information is protected by the Federal Confidentiality of Alcohol and Drug Abuse Patient Records regulations: The Federal rules restrict any use of the information to criminally investigate or prosecute any alcohol or drug abuse patient.[facility] HospitalIn the event this information is protected by the Federal Confidentiality of Alcohol and Drug Abuse Patient Records regulations: The Federal rules restrict any use of the information to criminally investigate or prosecute any alcohol or drug abuse patient.[facility] HospitalIn the event this information is protected by the Federal Confidentiality of Alcohol and Drug Abuse Patient Records regulations: The Federal rules restrict any use of the information to criminally investigate or prosecute any alcohol or drug abuse patient.[facility] HospitalIn the event this information is protected by the Federal Confidentiality of Alcohol and Drug Abuse Patient Records regulations: The Federal rules restrict any use of the information to criminally investigate or prosecute any alcohol or drug abuse patient.[facility] HospitalIn the event this information is protected by the Federal Confidentiality of Alcohol and Drug Abuse Patient Records regulations: The Federal rules restrict any use of the information to criminally investigate or prosecute any alcohol or drug abuse patient.[facility] HospitalIn the event this information is protected by the Federal Confidentiality of Alcohol and Drug Abuse Patient Records regulations: The Federal rules restrict any use of the information to criminally investigate or prosecute any alcohol or drug abuse patient.[facility] HospitalIn the event this information is protected by the Federal Confidentiality of Alcohol and Drug Abuse Patient Records regulations: The Federal rules restrict any use of the information to criminally investigate or prosecute any alcohol or drug abuse patient.[facility] HospitalIn the event this information is protected by the Federal Confidentiality of Alcohol and Drug Abuse Patient Records regulations: The Federal rules restrict any use of the information to criminally investigate or prosecute any alcohol or drug abuse patient.[facility] HospitalIn the event this information is protected by the Federal Confidentiality of Alcohol and Drug Abuse Patient Records regulations: The Federal rules restrict any use of the information to criminally investigate or prosecute any alcohol or drug abuse patient.[facility] HospitalIn the event this information is protected by the Federal Confidentiality of Alcohol and Drug Abuse Patient Records regulations: The Federal rules restrict any use of the information to criminally investigate or prosecute any alcohol or drug abuse patient.[facility] HospitalIn the event this information is protected by the Federal Confidentiality of Alcohol and Drug Abuse Patient Records regulations: The Federal rules restrict any use of the information to criminally investigate or prosecute any alcohol or drug abuse patient.[facility] HospitalIn the event this information is protected by the Federal Confidentiality of Alcohol and Drug Abuse Patient Records regulations: The Federal rules restrict any use of the information to criminally investigate or prosecute any alcohol or drug abuse patient.[facility] HospitalIn the event this information is protected by the Federal Confidentiality of Alcohol and Drug Abuse Patient Records regulations: The Federal rules restrict any use of the information to criminally investigate or prosecute any alcohol or drug abuse patient.[facility] HospitalIn the event this information is protected by the Federal Confidentiality of Alcohol and Drug Abuse Patient Records regulations: The Federal rules restrict any use of the information to criminally investigate or prosecute any alcohol or drug abuse patient.[facility] HospitalIn the event this information is protected by the Federal Confidentiality of Alcohol and Drug Abuse Patient Records regulations: The Federal rules restrict any use of the information to criminally investigate or prosecute any alcohol or drug abuse patient.[facility] HospitalIn the event this information is protected by the Federal Confidentiality of Alcohol and Drug Abuse Patient Records regulations: The Federal rules restrict any use of the information to criminally investigate or prosecute any alcohol or drug abuse patient.[facility] HospitalIn the event this information is protected by the Federal Confidentiality of Alcohol and Drug Abuse Patient Records regulations: The Federal rules restrict any use of the information to criminally investigate or prosecute any alcohol or drug abuse patient.[facility] HospitalIn the event this information is protected by the Federal Confidentiality of Alcohol and Drug Abuse Patient Records regulations: The Federal rules restrict any use of the information to criminally investigate or prosecute any alcohol or drug abuse patient.[facility] HospitalIn the event this information is protected by the Federal Confidentiality of Alcohol and Drug Abuse Patient Records regulations: The Federal rules restrict any use of the information to criminally investigate or prosecute any alcohol or drug abuse patient.[facility] HospitalIn the event this information is protected by the Federal Confidentiality of Alcohol and Drug Abuse Patient Records regulations: The Federal rules restrict any use of the information to criminally investigate or prosecute any alcohol or drug abuse patient.[facility] HospitalIn the event this information is protected by the Federal Confidentiality of Alcohol and Drug Abuse Patient Records regulations: The Federal rules restrict any use of the information to criminally investigate or prosecute any alcohol or drug abuse patient.[facility] HospitalIn the event this information is protected by the Federal Confidentiality of Alcohol and Drug Abuse Patient Records regulations: The Federal rules restrict any use of the information to criminally investigate or prosecute any alcohol or drug abuse patient.[facility] HospitalIn the event this information is protected by the Federal Confidentiality of Alcohol and Drug Abuse Patient Records regulations: The Federal rules restrict any use of the information to criminally investigate or prosecute any alcohol or drug abuse patient.[facility] HospitalIn the event this information is protected by the Federal Confidentiality of Alcohol and Drug Abuse Patient Records regulations: The Federal rules restrict any use of the information to criminally investigate or prosecute any alcohol or drug abuse patient.[facility] HospitalIn the event this information is protected by the Federal Confidentiality of Alcohol and Drug Abuse Patient Records regulations: The Federal rules restrict any use of the information to criminally investigate or prosecute any alcohol or drug abuse patient.[facility] HospitalIn the event this information is protected by the Federal Confidentiality of Alcohol and Drug Abuse Patient Records regulations: The Federal rules restrict any use of the information to criminally investigate or prosecute any alcohol or drug abuse patient.[facility] HospitalIn the event this information is protected by the Federal Confidentiality of Alcohol and Drug Abuse Patient Records regulations: The Federal rules restrict any use of the information to criminally investigate or prosecute any alcohol or drug abuse patient.[facility] HospitalIn the event this information is protected by the Federal Confidentiality of Alcohol and Drug Abuse Patient Records regulations: The Federal rules restrict any use of the information to criminally investigate or prosecute any alcohol or drug abuse patient.[facility] HospitalIn the event this information is protected by the Federal Confidentiality of Alcohol and Drug Abuse Patient Records regulations: The Federal rules restrict any use of the information to criminally investigate or prosecute any alcohol or drug abuse patient.[facility] HospitalIn the event this information is protected by the Federal Confidentiality of Alcohol and Drug Abuse Patient Records regulations: The Federal rules restrict any use of the information to criminally investigate or prosecute any alcohol or drug abuse patient.[facility] HospitalIn the event this information is protected by the Federal Confidentiality of Alcohol and Drug Abuse Patient Records regulations: The Federal rules restrict any use of the information to criminally investigate or prosecute any alcohol or drug abuse patient.[facility] HospitalIn the event this information is protected by the Federal Confidentiality of Alcohol and Drug Abuse Patient Records regulations: The Federal rules restrict any use of the information to criminally investigate or prosecute any alcohol or drug abuse patient.[facility] HospitalIn the event this information is protected by the Federal Confidentiality of Alcohol and Drug Abuse Patient Records regulations: The Federal rules restrict any use of the information to criminally investigate or prosecute any alcohol or drug abuse patient.[facility] HospitalIn the event this information is protected by the Federal Confidentiality of Alcohol and Drug Abuse Patient Records regulations: The Federal rules restrict any use of the information to criminally investigate or prosecute any alcohol or drug abuse patient.[facility] HospitalIn the event this information is protected by the Federal Confidentiality of Alcohol and Drug Abuse Patient Records regulations: The Federal rules restrict any use of the information to criminally investigate or prosecute any alcohol or drug abuse patient.[facility] HospitalIn the event this information is protected by the Federal Confidentiality of Alcohol and Drug Abuse Patient Records regulations: The Federal rules restrict any use of the information to criminally investigate or prosecute any alcohol or drug abuse patient.[facility] HospitalIn the event this information is protected by the Federal Confidentiality of Alcohol and Drug Abuse Patient Records regulations: The Federal rules restrict any use of the information to criminally investigate or prosecute any alcohol or drug abuse patient.[facility] HospitalIn the event this information is protected by the Federal Confidentiality of Alcohol and Drug Abuse Patient Records regulations: The Federal rules restrict any use of the information to criminally investigate or prosecute any alcohol or drug abuse patient.[facility] HospitalIn the event this information is protected by the Federal Confidentiality of Alcohol and Drug Abuse Patient Records regulations: The Federal rules restrict any use of the information to criminally investigate or prosecute any alcohol or drug abuse patient.[facility] HospitalIn the event this information is protected by the Federal Confidentiality of Alcohol and Drug Abuse Patient Records regulations: The Federal rules restrict any use of the information to criminally investigate or prosecute any alcohol or drug abuse patient.[facility] HospitalIn the event this information is protected by the Federal Confidentiality of Alcohol and Drug Abuse Patient Records regulations: The Federal rules restrict any use of the information to criminally investigate or prosecute any alcohol or drug abuse patient.[facility] HospitalIn the event this information is protected by the Federal Confidentiality of Alcohol and Drug Abuse Patient Records regulations: The Federal rules restrict any use of the information to criminally investigate or prosecute any alcohol or drug abuse patient.[facility] HospitalIn the event this information is protected by the Federal Confidentiality of Alcohol and Drug Abuse Patient Records regulations: The Federal rules restrict any use of the information to criminally investigate or prosecute any alcohol or drug abuse patient.[facility] HospitalIn the event this information is protected by the Federal Confidentiality of Alcohol and Drug Abuse Patient Records regulations: The Federal rules restrict any use of the information to criminally investigate or prosecute any alcohol or drug abuse patient.[facility] HospitalIn the event this information is protected by the Federal Confidentiality of Alcohol and Drug Abuse Patient Records regulations: The Federal rules restrict any use of the information to criminally investigate or prosecute any alcohol or drug abuse patient.[facility] HospitalIn the event this information is protected by the Federal Confidentiality of Alcohol and Drug Abuse Patient Records regulations: The Federal rules restrict any use of the information to criminally investigate or prosecute any alcohol or drug abuse patient.[facility] HospitalIn the event this information is protected by the Federal Confidentiality of Alcohol and Drug Abuse Patient Records regulations: The Federal rules restrict any use of the information to criminally investigate or prosecute any alcohol or drug abuse patient.[facility] HospitalIn the event this information is protected by the Federal Confidentiality of Alcohol and Drug Abuse Patient Records regulations: The Federal rules restrict any use of the information to criminally investigate or prosecute any alcohol or drug abuse patient.[facility] HospitalIn the event this information is protected by the Federal Confidentiality of Alcohol and Drug Abuse Patient Records regulations: The Federal rules restrict any use of the information to criminally investigate or prosecute any alcohol or drug abuse patient.[facility] Care Teams (unrecognized sec tion and content) Affirmative Action Specialist Relationship Specialty Start Date End Date Billy Culp MD [facility] [place] [address] PCP - General Family Practice 07/31/21 Kailee Rodriguez MD [address] [place] [address] Primary Staff Physician Cardiology 01/13/19 Affirmative Action Specialist Relationship Specialty Start Date End Date Billy Culp MD [address] [place] [address] PCP - General Family Practice 07/31/21 Kailee Rodriguez MD [address] [facility] [place] [address] Primary Staff Physician Cardiology 01/13/19 Affirmative Action Specialist Relationship Specialty Start Date End Date Billy Culp MD [address] [place] [address] PCP - General Family Practice 07/31/21 Kailee Rodriguez MD [address] [facility] [place] [address] Primary Staff Physician Cardiology 01/13/19 Affirmative Action Specialist Relationship Specialty Start Date End Date Billy Culp MD [address] [place] [address] PCP - General Family Practice 07/31/21 Kailee Rodriguez MD [address] [facility] [place] [address] Primary Staff Physician Cardiology 01/13/19 Affirmative Action Specialist Relationship Specialty Start Date End Date Billy Culp MD [address] [place] [address] PCP - General Family Practice 07/31/21 Kailee Rodriguez MD [address] [place] [address] Primary Staff Physician Cardiology 01/13/19 Affirmative Action Specialist Relationship Specialty Start Date End Date Billy Culp MD [address] [facility] [place] [place] [address] PCP - General Family Practice 07/31/21 Kailee Rodriguez MD [address] [facility] [place] [address] Primary Staff Physician Cardiology 01/13/19 Affirmative Action Specialist Relationship Specialty Start Date End Date Billy Culp MD [address] [place] [address] PCP - General Family Practice 07/31/21 Kailee Rodriguez MD [address] [place] [address] Primary Staff Physician Cardiology 01/13/19 Affirmative Action Specialist Relationship Specialty Start Date End Date Billy Culp MD [facility] [place] [address] PCP - General Family Practice 07/31/21 Kailee Rodriguez MD [address] [place] [address] Primary Staff Physician Cardiology 01/13/19 Affirmative Action Specialist Relationship Specialty Start Date End Date Billy Culp MD [facility] [place] [address] PCP - General Family Medicine 07/31/21 Kailee Rodriguez MD [address] [place] [address] Primary Staff Physician Cardiology 01/13/19 Affirmative Action Specialist Relationship Specialty Start Date End Date Billy Culp MD [address] [place] [address] PCP - General Family Medicine 07/31/21 Kialee Rodriguez MD [address] [place] [address] Primary Staff Physician Cardiology 01/13/19 Affirmative Action Specialist Relationship Specialty Start Date End Date Billy Culp MD [facility] [place] [address] PCP - General Family Medicine 07/31/21 Kailee Rodriguez MD [address] [place] [address] Primary Staff Physician Cardiology 01/13/19 Affirmative Action Specialist Relationship Specialty Start Date End Date Billy Culp MD [address] [place], [place] [address] PCP - General Family Medicine 07/31/21 Kailee Rodriguez MD [address] [place] [address] Primary Staff Physician Cardiology 01/13/19 Affirmative Action Specialist Relationship Specialty Start Date End Date Billy Culp MD [address] [place], [place] [id number] PCP - General Family Medicine 07/31/21 Kailee Rodriguez MD [address] [place] [address] Primary Staff Physician Cardiology 01/13/19 Team Status: Active Member Role Status Dates Dr. Austin Bowers III, MD Family Provider Active Dr. Billy Culp MD Primary Care Provider Active Team Status: Inactive Member Role Status Dates Dr. Billy Culp MD Primary Care Provider, Referri ng Provider Active Dr. Minh Martinez DO Attending Provider Active Team Status: Active Member Role Status Dates Dr. Billy Culp MD Primary Care Provider, Referri ng Provider Active Dr. Minh Martinez DO Attending Provider, Other Prov ider Active Team Status: Inactive Member Role Status Dates Dr. Billy Culp MD Primary Care Provider, Referri ng Provider Active PAUL Agarwal Attending Provider Active Team Status: Inactive Member Role Status Dates Dr. Billy Culp MD Primary Care Provider Active Dr. Nigel Groves MD Attending Provider Active Team Status: Inactive Member Role Status Dates Dr. Billy Culp MD Primary Care Provider Active Liz Braswell SHOP ESTIMATOR, SHOP ESTIMATOR-C Attending Provider, Referrin g Provider Active Affirmative Action Specialist Relationship Specialty Start Date End Date Billy Culp MD [address] [place], [place] [id number] PCP - General Family Medicine 07/31/21 Kailee Rodriguez MD [address] [facility] [place] [address] Primary Staff Physician Cardiology 01/13/19 Affirmative Action Specialist Relationship Specialty Start Date End Date Billy Culp MD [address] [place] [address] PCP - General Family Medicine 07/31/21 Kailee Rodriguez MD [address] [facility] [place] [address] Primary Staff Physician Cardiology 01/13/19 Affirmative Action Specialist Relationship Specialty Start Date End Date Billy Culp MD [address] [place] [address] PCP - General Family Medicine 07/31/21 Kailee Rodriguez MD [address] [facility] [place] [address] Primary Staff Physician Cardiology 01/13/19 Affirmative Action Specialist Relationship Specialty Start Date End Date Billy Culp MD [address] [place] [address] PCP - General Family Medicine 07/31/21 Kailee Rodriguez MD [address] [facility] [place] [address] Primary Staff Physician Cardiology 01/13/19 Team Status: Inactive Member Role Status Dates Dr. Billy Culp MD Primary Care Provider Active Dr. Minh Martinez , DO Attending Provider, Referring Provider Active Affirmative Action Specialist Relationship Specialty Start Date End Date Billy Culp MD [address] [place] [address] PCP - General Family Medicine 07/31/21 Kailee Rodriguez MD [address] [place] [address] Primary Staff Physician Cardiology 01/13/19 Affirmative Action Specialist Relationship Specialty Start Date End Date Billy Culp MD [address] [place] [address] PCP - General Family Medicine 07/31/21 Kailee Rodriguez MD [address] [place] [address] Primary Staff Physician Cardiology 01/13/19 Affirmative Action Specialist Relationship Specialty Start Date End Date Billy Culp MD [address] [place] [address] PCP - General Family Medicine 04/09/22 Affirmative Action Specialist Relationship Specialty Start Date End Date Billy Culp MD [facility] [place] [address] PCP - General Family Medicine 04/09/22 Affirmative Action Specialist Relationship Specialty Start Date End Date Billy Culp MD [facility] [place] [address] PCP - General Family Medicine 07/31/21 Kailee Rodriguez MD [address] [place] [address] Primary Staff Physician Cardiology 01/13/19 Affirmative Action Specialist Relationship Specialty Start Date End Date Billy Culp MD [address] [place] [address] PCP - General Family Medicine 07/31/21 Kailee Rodriguez MD [address] [place] [address] Primary Staff Physician Cardiology 01/13/19 Affirmative Action Specialist Relationship Specialty Start Date End Date Billy Culp MD [address] [place] [address] PCP - General Family Medicine 07/31/21 Kailee Rodriguez MD [address] [place] [address] Primary Staff Physician Cardiology 01/13/19 Team Status: Inactive Member Role Status Dates Dr. Billy Culp MD Primary Care Provider Active AMERICA MCCLURE MD Attending Provider, Referring Pro vider Active Dr. Stanley Garcia MD Other Provider Active Affirmative Action Specialist Relationship Specialty Start Date End Date Billy Culp MD [address] [place] [address] PCP - General Family Medicine 07/31/21 Kailee Rodriguez MD [address] [place] [address] Primary Staff Physician Cardiology 01/13/19 Team Status: Inactive Member Role Status Dates Dr. Billy Culp MD Primary Care Provider, Referri ng Provider Active Dr. Stanley Garcia MD Attending Provider Active Affirmative Action Specialist Relationship Specialty Start Date End Date Billy Culp MD [address] [place] [address] PCP - General Family Medicine 07/31/21 Kailee Rodriguez MD [address] [place] [address] Primary Staff Physician Cardiology 01/13/19 Affirmative Action Specialist Relationship Specialty Start Date End Date Billy Culp MD [address] [place] [address] PCP - General Family Medicine 07/31/21 Kailee Rodriguez MD [address] [place] [address] Primary Staff Physician Cardiology 01/13/19 Team Status: Inactive Member Role Status Dates Dr. Billy Culp MD Primary Care Provider Active Dr. Stanley Garcia MD Attending Provider, Referring P sirisha Active Affirmative Action Specialist Relationship Specialty Start Date End Date Billy Culp MD [address] [place] [address] PCP - General Family Medicine 04/09/22 Affirmative Action Specialist Relationship Specialty Start Date End Date Billy Culp MD [address] [place] [address] PCP - General Family Medicine 07/31/21 Kailee Rodriguez MD [address] [place] [address] Primary Staff Physician Cardiology 01/13/19 Team Status: Inactive Member Role Status Dates Dr. Billy Culp MD Primary Care Provider, Referri ng Provider Active Dr. Nigel Groves MD Attending Provider Active Team Status: Inactive Member Role Status Dates Dr. Billy Culp MD Referring Provider Active Dr. Stanley Garcia MD Attending Provider Active Affirmative Action Specialist Relationship Specialty Start Date End Date Billy Culp MD [address] [place] [address] PCP - General Family Medicine 07/31/21 Kailee Rodriguez MD [address] [place] [address] Primary Staff Physician Cardiology 01/13/19 Affirmative Action Specialist Relationship Specialty Start Date End Date Billy Culp MD [address] [place] [address] PCP - General Family Medicine 07/31/21 Kailee Rodriguez MD [address] [place] [address] Primary Staff Physician Cardiology 01/13/19 Affirmative Action Specialist Relationship Specialty Start Date End Date Billy Culp MD [address] [place] [address] PCP - General Family Medicine 07/31/21 Kailee Rodriguez MD [address] [place] [address] Primary Staff Physician Cardiology 01/13/19 Affirmative Action Specialist Relationship Specialty Start Date End Date Billy Culp MD [address] [place] [address] PCP - General Family Medicine 07/31/21 Kailee Rodriguez MD [address] [place] [address] Primary Staff Physician Cardiology 01/13/19 Affirmative Action Specialist Relationship Specialty Start Date End Date Billy Culp MD [address] [place] [address] PCP - General Family Medicine 07/31/21 Kailee Rodriguez MD [address] [place] [address] Primary Staff Physician Cardiology 01/13/19 Affirmative Action Specialist Relationship Specialty Start Date End Date Billy Culp MD [address] [place] [address] PCP - General Family Medicine 07/31/21 Kailee Rodriguez MD [address] [place] [address] Primary Staff Physician Cardiology 01/13/19 Affirmative Action Specialist Relationship Specialty Start Date End Date Billy Culp MD [address] [place] [address] PCP - General Family Medicine 07/31/21 Kailee Rodriguez MD [address] [facility] [place] [address] Primary Staff Physician Cardiology 01/13/19 Irma Clay, KESLEA [address] [place] [address] Primary Care Student Services Director 07/22/24 Affirmative Action Specialist Relationship Specialty Start Date End Date Billy Culp MD [address] [place] [address] PCP - General Family Medicine 07/31/21 Kailee Rodriguez MD [address] [place] [address] Primary Staff Physician Cardiology 01/13/19 Irma Clay, RN [address] [place] [address] Primary Care Student Services Director 07/22/24 Affirmative Action Specialist Relationship Specialty Start Date End Date Billy Culp MD [address] [place] [address] PCP - General Family Medicine 07/31/21 Kailee Rodriguez MD [address] [place] [address] Primary Staff Physician Cardiology 01/13/19 Irma Clay, RN [address] [place] [address] Primary Care Student Services Director 07/22/24 Affirmative Action Specialist Relationship Specialty Start Date End Date Billy Culp MD [address] [place] [address] PCP - General Family Medicine 07/31/21 Kailee Rodriguez MD [address] [place] [address] Primary Staff Physician Cardiology 01/13/19 Irma Clay, RN [address] [place] [address] Primary Care Student Services Director 07/22/24 Affirmative Action Specialist Relationship Specialty Start Date End Date Billy Culp MD [address] [place] [address] PCP - General Family Medicine 07/31/21 Kailee Rodriguez MD [address] [place] [address] Primary Staff Physician Cardiology 01/13/19 Irma Clay, RN [address] [place] [address] Primary Care Student Services Director 07/22/24 Affirmative Action Specialist Relationship Specialty Start Date End Date Billy Culp MD [address] [place] [address] PCP - General Family Medicine 07/31/21 Kailee Rodriguez MD [address] [place] [address] Primary Staff Physician Cardiology 01/13/19 Irma Clay, KELSEA [address] [place] [address] Primary Care Student Services Director 07/22/24 08/13/24 Affirmative Action Specialist Relationship Specialty Start Date End Date Billy Culp MD [address] [place] [address] PCP - General Family Medicine 07/31/21 Kailee Rodriguez MD [address] [place] [address] Primary Staff Physician Cardiology 01/13/19 Affirmative Action Specialist Relationship Specialty Start Date End Date Billy Culp MD [address] [place] [address] PCP - General Family Medicine 07/31/21 Kailee Rodriguez MD [address] [place] [address] Primary Staff Physician Cardiology 01/13/19 Affirmative Action Specialist Relationship Specialty Start Date End Date Billy Culp MD [address] [place] [address] PCP - General Family Medicine 07/31/21 Kailee Rodriguez MD [address] [facility] [place] [address] Primary Staff Physician Cardiology 01/13/19 Affirmative Action Specialist Relationship Specialty Start Date End Date Billy Culp MD [address] [place] [address] PCP - General Family Medicine 07/31/21 Kailee Rodriguez MD [address] [place] [address] Primary Staff Physician Cardiology 01/13/19 Teri Orosco APRN.ELECTRICAL PRODUCTS ENGINEER [address] [place] [address] Talent Associate Family Medicine 10/03/24 Suzie Lechuga PA-C [address] [place] [address] Talent Associate Family Medicine 10/03/24 Affirmative Action Specialist Relationship Specialty Start Date End Date Billy Culp MD [address] [place] [address] PCP - General Family Medicine 07/31/21 Kailee Rodriguez MD [address] [place] [address] Primary Staff Physician Cardiology 01/13/19 Teri Orosco APRN.ELECTRICAL PRODUCTS ENGINEER [address] [place] [address] Talent Associate Family Medicine 10/03/24 Suzie Lechuga PA-C [address] [place] [address] [facility] 10/03/24 Affirmative Action Specialist Relationship Specialty Start Date End Date Billy Culp MD [address] [place] [address] PCP - General Family Medicine 07/31/21 Kailee Rodriguez MD [address] [place] [address] Primary Staff Physician Cardiology 01/13/19 Teri Orosco APRN.ELECTRICAL PRODUCTS ENGINEER [address] [place] [address] Talent Associate Family [facility] 10/03/24 Suzie Lechuga PA-C [address] [facility] [place] [address] [facility] 10/03/24 Affirmative Action Specialist Relationship Specialty Start Date End Date Billy Culp MD [address] [place] [address] PCP - General Family Medicine 07/31/21 Kailee Rodriguez MD [address] [place] [address] Primary Staff Physician Cardiology 01/13/19 Teri Orosco, NITHIN.ELECTRICAL PRODUCTS ENGINEER [address] [place] [address] [facility] Family Medicine 10/03/24 Suzei Lechuga PA-C [address] [place] [address] [facility] 10/03/24 Affirmative Action Specialist Relationship Specialty Start Date End Date Billy Culp MD [address] [place] [address] PCP - General Family Medicine 07/31/21 Kailee Rodriguez MD [address] [place] [address] Primary Staff Physician Cardiology 01/13/19 Teri Orosco, LAB SUPPORT TECHNICIAN.ELECTRICAL PRODUCTS ENGINEER [address] [place] [address] Talent Associate Family Medicine 10/03/24 Suzie Lechuga PA-C [address] [place] [address] Talent Associate Family Medicine 10/03/24 Affirmative Action Specialist Relationship Specialty Start Date End Date Billy Culp MD [address] [place] [address] PCP - General Family Medicine 07/31/21 Kailee Rodriguez MD [address] [place] [address] Primary Staff Physician Cardiology 01/13/19 Teri Orosco, LAB SUPPORT TECHNICIAN.ELECTRICAL PRODUCTS ENGINEER [address] [place] [address] Talent Associate Family Medicine 10/03/24 Suzie Lechuga PA-C [address] [place] [phone] [facility] Affirmative Action Specialist Relationship Specialty Start Date End Date Billy Culp MD [address] [place] [address] PCP - General Family Medicine 02/01/25 Kailee Rodriguez MD [address] [place] [address] Primary Staff Physician Cardiology 01/13/19 Teri Orosco, LAB SUPPORT TECHNICIAN.ELECTRICAL PRODUCTS ENGINEER [address] [place] [address] Talent Associate Family Medicine 10/03/24 Suzie Lechuga PA-C [facility] [place] [address] Talent Associate Family Medicine 10/03/24 Affirmative Action Specialist Relationship Specialty Start Date End Date Billy Culp MD [address] [place] [address] PCP - General Family Medicine 02/01/25 Kailee Rodriguez MD [address] [place] [address] Primary Staff Physician Cardiology 01/13/19 Teri Orosco, NITHIN.ELECTRICAL PRODUCTS ENGINEER [address] [place] [address] [phone] [facility] 10/03/24 Suzie Lechuga PA-C [address] [place] [address] [phone] [facility] 10/03/24 Team Status: Active Member Role Status Dates Dr. Billy Culp MD Primary Care Provider Active Team Status: Inactive Member Role Status Dates Dr. Billy Culp MD Primary Care Provider Active Start: January 29, 2025 End: January 29, 2025 Dr. Stanley Garcia MD Attending Provider Active Start: January 29, 2025 End: January 29, 2025 Dr. Stanley Garcia MD Referring Provider Active Start: January 29, 2025 End: January 29, 2025 Affirmative Action Specialist Relationship Specialty Start Date End Date Billy Culp MD [address] [place] [address] PCP - General Family Medicine 02/01/25 Kailee Rodriguez MD [address] [place] [address] Primary Staff Physician Cardiology 01/13/19 Teri Orosco, LAB SUPPORT TECHNICIAN.ELECTRICAL PRODUCTS ENGINEER [address] [place] [address] [phone] [facility] 10/03/24 Suzie Lechuga PA-C [address] [place] [address] [phone] [facility] Associate Family Medicine 10/03/24 Affirmative Action Specialist Relationship Specialty Start Date End Date Billy Culp MD [address] [place] [address] PCP - General Family Medicine 04/09/22 Affirmative Action Specialist Relationship Specialty Start Date End Date Billy Culp MD [address] [place] [address] PCP - General Family Medicine 02/01/25 Kailee Rodriguez MD [address] [place] [address] Primary Staff Physician Cardiology 01/13/19 Teri Orosco, NITHIN.ELECTRICAL PRODUCTS ENGINEER [address] [place] [address] Talent Associate Family Medicine 10/03/24 Suzie Lechuga PA-C [address] [place] [phone] Talent Associate Family [facility] 10/03/24 Affirmative Action Specialist Relationship Specialty Start Date End Date Billy Culp MD [address] [place] [address] PCP - General Family Medicine 02/01/25 Kailee Rodriguez MD [address] [place] [address] Primary Staff Physician Cardiology 01/13/19 Teri Orosco APRN.ELECTRICAL PRODUCTS ENGINEER [address] [place] [address] Talent Associate Family Medicine 03/29/25 Suzie Lechuga PA-C [address] [place] [address] [facility] 03/29/25 Affirmative Action Specialist Relationship Specialty Start Date End Date Billy Culp MD [address] [place] [address] PCP - General Family Medicine 02/01/25 Kailee Rodriguez MD [address] [place] [address] Primary Staff Physician Cardiology 01/13/19 Teri Orosco, NITHIN.ELECTRICAL PRODUCTS ENGINEER [address] [place] [address] [facility] 03/29/25 Suzie Lechuga PA-C [address] [place] [address] [facility] 03/29/25 Team Status: Active Member Role/Relationship Status Dates Dr. Billy Culp MD Primary Care Provider Active Team Status: Inactive Member Role/Relationship Status Dates Dr. Billy Culp MD Primary Care Provider Active Start: June 08, 2025 End: June 08, 2025 Dr. Stanley Garcia MD Attending Provider Active Start: June 08, 2025 End: June 08, 2025 Dr. Stanley Garcia MD Referring Provider Active Start: June 08, 2025 End: June 08, 2025 Team Status: Active Member Role/Relationship Status Dates Dr. Billy Culp MD Primary Care Provider Active Start: June 17, 2025 Dr. Stanley Garcia MD Attending Provider Active Start: June 17, 2025 Dr. Stanley Garcia MD Referring Provider Active Start: June 17, 2025 Team Status: Inactive Member Role/Relationship Status Dates Dr. Billy Culp MD Primary Care Provider Active Start: June 17, 2025 End: June 17, 2025 Dr. Billy Culp MD Referring Provider Active Start: June 17, 2025 End: June 17, 2025 Dr. Stanley Garcia MD Attending Provider Active Start: June 17, 2025 End: June 17, 2025 Team Status: Inactive Member Role/Relationship Status Dates Dr. Billy Culp MD Primary Care Provider Active Start: June 17, 2025 End: June 17, 2025 Dr. Stanley Garcia MD Attending Provider Active Start: June 17, 2025 End: June 17, 2025 Dr. Stanley Garcia MD Referring Provider Active Start: June 17, 2025 End: June 17, 2025 Affirmative Action Specialist Relationship Specialty Start Date End Date Billy Culp MD [address] [place] [address] PCP - General Family Medicine 04/09/22 Reason for Visit (unrecogniz ed section and content) Reason Comments Orders Reason Comments Imm/Inj Reason Comments Medicare Wellness [...] Reason Onset Date Comments Refill Request 12/16/2023 Reason Comments outside H+P Reason Comments External / MRI Reason Comments Results, Lab Reason Comments Ext / [facility] Reason Comments Cirrhosis Reason Comments Ext / Labs Reason Comments Medicare Wellness Exam Reason Comments Outside [id number] Ordered Reason Comments Follow Up Reason Onset Date Comments Refill Request 07/03/2024 Reason Comments ER Discharge Summary H&P Reason Comments Hospital F/U [facility] Reason Comments Hospital Follow Up Reason Comments Outside Echo Reason Onset Date Comments Refill Request 09/16/2024 Reason Comments 6 Month Exam Reason Comments right foot pain Injured it yesterday when she stood too fast Reason Onset Date Comments Refill Request 11/10/2024 Reason Onset Date Comments Population Health Navigation Outreach [facility]/14[facility]20[facility] Reason Comments Results Outside facility lab s/US Reason Onset Date Comments Refill Request 02/04/2025 Reason Comments Consult Cardiology Reason Comments Consult Outside GI consult Reason Comments Outside Diabetic Eye Exam Reason Onset Date Comments Refill Request 03/04/2025 Reason Comments Follow-up Fatigue Goals (unrecognized section and content) Goals may be documented in a n alternate sectionGoals may be documented in an alternate sectionGoals may be documented in an alternate sectionGoals may be documented in an alternate sectionGoals may be documented in an alternate sectionGoals may be documented in an alternate sectionGoals may be documented in an alternate sectionGoals may be documented in an alternate sectionGoals may be documented in an alternate section FOR RECORDS PERTAINING TO PATIENTS WHO ARE [...] BE BASED ON THE PRIMARY CLINICAL RECORDS. [facility] [employer] [facility]. provides no warranty or guarantee of the accuracy or completeness of information in this document.
--- NOTE | 2025-10-27 06:34 | HP.PCM_ITS ---
HPI - General General Date of Admission: 10/27/25 Date of Service: 10/27/25 Chief Complaint: Esophageal varices surveillance HPI Narrative ROBBIN STILL, is a 70 F who presents for variceal surveillance.*[facility] hospitalization 07.22.21-07.24.21. [facility] ED with hematemesis in the setting of Xarelto with a hemoglobin of 7.6. Gastroenterology consulted and EGD performed with findings as below. During hospitalization a new diagnosis of liver cirrho sis r/t SANCHEZ was found. Bloodwork for autoimmune labs, autoimmune hepatitis, Paul?s disease and liver cancer tumor marker were within normal limits. EGD 07.22.21 2 columns of nonbleeding grade 2 esophageal varices in the lower third of the esophagus with 4 bleeding angiodysplastic lesions in the anterior wall of the gastric body and 2 bleeding angiodysplastic lesions in the duodenum. US 07.22.21 hepatic measurement 13.7cm with coarse echotexture with microlobulated contours. EGD 07.24.21 found erythematous mucosa of the stomach and nonbleeding gastric ulcers with no stigmata of recent bleeding as well as duodenitis and chronic gastritis with portal hypertensive gastropathy. Esophageal banding performed for grade II esophageal varices. OV 08.09.21 start colestipol, continue protonix and ursodiol. OV 11.06.21 Continues with PPI and ursodiol; not taking lactulose. CT abd/pel 11.17.21 found diffuse contour of the liver consistent with cirrhotic changes and diffuse fatty infiltration of the liver. Small amount of fluid in keeping with ascites. Dilation of proximal common bile duct with transverse dimension of 1.6cm. Mild splenomegaly. Varicosities seen in splenic hilum. Small hiatal hernia. Diverticulosis. US abd and elastography 11.20.21 with liver measurement 13.5cm with heterogeneous echogenicity of the liver with a stiffness of 18 kPa compatible with F4. EGD 12.13.21 recently bleeding grade III esophageal varices, banded; portal hypertensive gastropathy. No specimens collected. OV 02.05.22 without HE signs. Loose stools with diet triggers are a difficulty. OV 04.06.22repeat EGD and biochemical workup. EGD 05.29.22 small <5mm esophageal varices; portal HTN gastropathy; duodenitis with rare neutrophils. OV 06.22.22 continue ursodiol. Update labs and imaging. EGD 09.10.22 noting Grade I esophageal varices, incompletely eradicated, banded; portal HTN gastropathy. No specimens collected. OV 09.25.22 continued postprandial diarrhea that is bothersome during travel. US RUQ 11.19.22 stable lobular contour of the liver; stable CBD dilation 16.3mm. OV 01.28.23 recently returned from visiting her son in [place]. Denies difficulty with confusion/brain fog, pruritis, jaundice, balance difficulty, sleep disturbance, edema. She did break her kneecap in September after tripping over a curb. Continues ursodiol, famotidine and PRN colestipol. [facility] liver transplant/hepatology/gastroenterology clinic 10.18.22 with recommendation for transplant if MELD remains above 15 consistently. OV 10.07.23- Pt stable since last visit. Has had increase in heartburn over the last month or so. Denies dysphagia, abdominal pain. BM are normal and goes 1-2 times a day. Is not having any swelling, dizziness or confusion. She was on PPI before but that caused her diarrhea therefore was changed to famotidine initially 20 mg twice daily and then 40 mg once daily. Patient also going for cruise about in November 2023 [place] [employer] EGD 01.02.24- Grade I esophageal varices, portal hypertensive gastropathy, erythematous duodenopathy Pathology: Minimal acute duodenitis MRI abd w/wo Triple Phase 02.03.24- Liver cirrhosis with findings related to portal hypertension OV 02.11.24- Since last visit pt reports she went back on Pantoprazole at last visit and her heartburn was better but she started having gas and bloating again. No diarrhea. Has 1-2 soft BM a day. Denies any dizziness, confusion. In the past, famotidine did not control her symptoms well but want to try again. She also had feeling of severe pain on the right upper extremity and localized cordlike feeling around IV cannula during MRI abdomen. IV Clariscan as a contrast was given. 05.05.24 Meld na 12 OV 7.24- Pt stable since last visit. Was recently started on Thyroid medication and was taken off of HCTZ. Feels off due to med changed. Continues Famotidine for GERD but does not feel like it control her symptoms. Does not have heartburn every day but a few times a week. Does watch diet. No change in BM. C/o leg swelling after off HCTZ. Has bloating an mild upper abd discomfort with gas. 08.12.24 Meld na 11 OV 08.18.24- Pt states she is stable since her hospital visit last month. States she got COVID and had a lasting cough that caused her to have a cari- gary tear. Feels increased fatigue and loss of appeite. Still does not have her taste back. Denies trouble swallowing, heartburn, abdominal oain or trouble with bowels. Continues with Lasix and has not had any swelling. US abd/ elastography .02.19- Liver measures 12.2c,m, Stiffness 18.9 kPa 4.25- MELD na 10 OV 04 Pt states he is well since last visit. States she has felt more tired lately. Denies abdominal pain, bowel changes, swelling, or itching. States she continues to have heartburn. Does not feel as though the medication she is prescribed is helpful. 8..25- MELDna 16 OV 8.25- Pt well since last visit. Continues to feel fatigued easy. Denies abdominal pain, changes in bowels, itching. Patient has gained weight 4 pound in 1 week. Has increased swelling in legs. [facility] Medical History Abnormal ultrasound of liver Cataract (lens) fragments in eye following cataract surgery, bilateral Chronic kidney disease (CKD) Difficult intravenous access Wears glasses History of GI bleed History of ulceration Non-smoker Shortness of breath on exertion History of echocardiogram Cardiology follow-up encounter History of rheumatic fever Esophageal varices Renal insufficiency Vitamin B 12 deficiency Pulmonary HTN Rheumatic mitral insufficiency Hyperlipidemia Essential hypertension Acquired thrombocytopenia Diarrhea Anemia Bleeding tendency Post-menopausal Restless legs History of stress test Irregular heartbeat Thrombocytopenia Cirrhosis Acute on chronic blood loss anemia Diabetes Atrial fibrillation Home Medications ?Medication ?Instructions ?Recorded ?Last Taken ?Type cholecalciferol (vitamin D3) 25 25 mcg PO DAILY supple ment 12/12/21 01/01/24 08:30 History mcg (1,000 unit) tablet (Vitamin D3) glimepiride 4 mg tablet 4 mg PO BID diabetes 3 01/01/24 16:00 History ezetimibe 10 mg tablet 10 mg PO DAILY Cholesterol 0 12/31/23 01/01/24 19:00 History famotidine 20 mg tablet 20 mg PO BID Stomach acid 90 days 05/11/24 Unknown Rx #180 tabs ferrous sulfate 325 mg (65 mg 325 mg PO DAILY suppleme nt 05/15/24 Unknown Histor y iron) tablet colestipol 1 gram tablet 1 g PO DAILY PRN Diarrhea #9 0 tabs 07/04/24 Unknown Rx carvedilol 6.25 mg tablet 6.25 mg PO BID BP #180 tabs 12/07/24 Unknown Rx levothyroxine 25 mcg tablet 25 mcg PO QDAY 02/08/25 Un known History metformin 500 mg tablet 1,000 mg PO BID diabetes Unknown History 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 mg tablet 250 mg PO BID biliary cirrho sis 3 02/09/25 Unknown Rx months #180 tabs spironolactone 50 mg tablet 25 mg (1/2 x 50 mg) PO CHLOE LY BP 3 06/09/25 Unknown Rx months #45 tabs furosemide 20 mg tablet (Lasix) 30 mg PO DAILY edema 1 12/19/24 Unknown History magnesium oxide 400 mg (241.3 mg 400 mg PO BID supplem ent 10/18/25 Unknown History magnesium) tablet mirtazapine 15 mg tablet 15 mg PO QPM PRN to increase 10/18/25 Unknown History apetite Allergy/AdvReac Type Severity Reaction Status Date / Time diltiazem (From Cardizem) AdvReac Intermediate elevates Verified 02/08/25 10:52 glucose sitagliptin (From Januvia) AdvReac Intermediate CP/SOB Verified 02/08/25 10:52 pioglitazone (From Actos) AdvReac Swelling Verified 02/08/25 10:52 Olmjvjh-TKL-VvD Reductase AdvReac MAKES MY Verified 02/08/25 10:52 Inhibitor (Eybloal-Rcf-Suq LEGS ACHE Reductase Inhibitor) Family History Father No problems noted. Surgical History History of bilateral cataract extraction (~08/2023) History of colonoscopy S/P ablation of atrial fibrillation History of cholecystectomy History of History of esophagogastroduodenoscopy (EGD) History of prior ablation treatment Social History Smoking Status: Never smoker alcohol intake: never substance use type: does not use caffeine: Yes what type of physical activity do you participate in: walking frequency: 3-4 times per week ROS Constitutional Constitutional: Denies fatigue, fever(s), poor appetite, weight gain or weight loss Gastrointestinal Gastrointestinal: Denies belching, bloating, change in bowel habits, change in stool character, chewing difficulty, coffee ground emesis, constipation, cramping, diarrhea, dyspepsia, dysphagia, early satiety, excessive flatus, fecal incontinence, heartburn, hematemesis, hematochezia, hemorrhoids, loose stools, melena, nausea, odynophagia, rectal bleeding, tenesmus, vomiting or weight changes Patient's Goals Of Care . What would you like to achieve or improve as a result of your hospital stay?: none Physical Exam Const alert, oriented x3, no apparent distress and healthy appearing General Appearance: cooperative GI normal to inspection, nondistended, normoactive bowel sounds, soft to palpation, non-tender and non-distended Percussion: normal to percussion Rectal Exam: deferred Assessment & Plan Assessment/Plan (1) Cirrhosis: QUALIFIERS: Hepatic cirrhosis type: unspecified hepatic cirrhosis Ascites presence: without ascites Qualified Code(s): K74.60 - Unspecified cirrhosis of liver (2) Esophageal varices: QUALIFIERS: Esophageal varices type: unspecified type Esophageal varices bleeding: without bleeding Qualified Code(s): I85.00 - Esophageal varices without bleeding PLAN: Plan Assessment and Plan Assessment and Plan (1) Cirrhosis: Status: Chronic Qualifiers: Ascites presence: without ascites Hepatic cirrhosis type: unspecified hepatic cirrhosis Qualified Code(s): K74.60 - Unspecified cirrhosis of liver Plan: MELD Na score as per 04/2024 is 12. INR 1.3, total bilirubin 0.7 creatinine 1.34 and Na 137. CPT score 7, child class B. Lipid profile WNL MELD sodium score 13 as per last lab in August 12, 2024, creatinine 1.22, INR 1.3, sodium 138, TB 1.0, January 2025 MELD sodium 10 June 08, 2025 MELD sodium 16 for creatinine 1.53. Furosemide 20 mg every other day was held and spironolactone decreased from 50 to 25 mg daily. After 1 week, BMP was done today 06/16/2025 and creatinine came down to 1.27 and with that creatinine MELD score 7 is 14 This was reviewed in MRI abdomen. Does not show a liver mass but nodular changes and mild splenomegaly consistent with a diagnosis of cirrhosis As per patient's , while watching TV shows he loses track of events sometimes. Possible hepatic encephalopathy grade 1 She was admitted in hospital in June 2020 for for upper GI bleed most likely due to Cari-Jackson tear. Patient is on PPI twice daily. EGD 07/20/2024 Impressions : - Cari-Jackson tear. - Small (< 5 mm) esophageal varices. - Small hiatal hernia. - Portal hypertensive gastropathy. - Non-bleeding duodenal ulcer with no stigmata of bleeding. Repeat labs shows improvement in creatinine from 1.53 with MELD sodium 16 on 06/08/2025 to improved to 1.27 on 06/16/2025 after holding Lasix and decreasing spironolactone from 50 to 25 mg. Her MELD sodium score hovers around 14-16 depending upon the creatinine level. She has follow-up in [facility] for transplant evaluation in September in [facility]. She also has follow-up liver ultrasound in August prior to the appointment. I discussed in detail about the change to physiology of liver, kidney after cirrhosis with multiple complications including osteoporosis and sarcopenia. Her phosphorus level is also below 2.5 and magnesium normal. Prescription for Neutra-Phos given. Advised to go back on furosemide 20 mg every other day and spironolactone 25 mg daily. Repeat labs in 2 weeks to see the change in creatinine. Complete labs ordered in 3 months prior to next visit better will be after [facility] transplant evaluation visit. (2) Esophageal varices: Status: Chronic Qualifiers: Esophageal varices bleeding: without bleeding Esophageal varices type: unspecified type Qualified Code(s): I85.00 - Esophageal varices without bleeding Plan: Patient on carvedilol. Orders: Orders Comprehensive Metabolic Profil 06/08/25 D64.9 - Anemia, unspecified, E11.9 - Type 2 diabetes mellitus without complications, E78.2 - Mixed hyperlipidemia, I10 - Essential (primary) hypertension, I27.20 - Pulmonary hypertension, unspecified, I48.0 - Paroxysmal atrial fibrillation, K74.60 - Unspecified cirrhosis of liver Hemoglobin A1c 06/08/25 D64.9 - Anemia, unspecified, E11.9 - Type 2 diabetes mellitus without complications, E78.2 - Mixed hyperlipidemia, I10 - Essential (primary) hypertension, I27.20 - Pulmonary hypertension, unspecified, I48.0 - Paroxysmal atrial fibrillation, K74.60 - Unspecified cirrhosis of liver Lipid Profile 06/08/25 D64.9 - Anemia, unspecified, E11.9 - Type 2 diabetes mellitus without complications, E78.2 - Mixed hyperlipidemia, I10 - Essential (primary) hypertension, I27.20 - Pulmonary hypertension, unspecified, I48.0 - Paroxysmal atrial fibrillation, K74.60 - Unspecified cirrhosis of liver Ferritin 06/08/254.9 - Anemia, unspecified, E11.9 - Type 2 diabetes mellitus without complications, E78.2 - Mixed hyperlipidemia, I10 - Essential (primary) hypertension, I27.20 - Pulmonary hypertension, unspecified, I48.0 - Paroxysmal atrial fibrillation, K74.60 - Unspecified cirrhosis of liver Iron+Iron Binding Capacity 06/08/25 D64.9 - Anemia, unspecified, E11.9 - Type 2 diabetes mellitus without complications, E78.2 - Mixed hyperlipidemia, I10 - Essential (primary) hypertension, I27.20 - Pulmonary hypertension, unspecified, I48.0 - Paroxysmal atrial fibrillation, K74.60 - Unspecified cirrhosis of liver Hepatitis B Surface Antibody 06/08/254.9 - Anemia, unspecified, E11.9 - Type 2 diabetes mellitus without complications, E78.2 - Mixed hyperlipidemia, I10 - Essential (primary) hypertension, I27.20 - Pulmonary hypertension, unspecified, I48.0 - Paroxysmal atrial fibrillation, K74.60 - Unspecified cirrhosis of liver Ammonia 06/08/25 D64.9 - Anemia, unspecified, E11.9 - Type 2 diabetes mellitus without complications, E78.2 - Mixed hyperlipidemia, I10 - Essential (primary) hypertension, I27.20 - Pulmonary hypertension, unspecified, I48.0 - Paroxysmal atrial fibrillation, K74.60 - Unspecified cirrhosis of liver Comprehensive Metabolic Profil 2 Weeks K74.60 - Unspecified cirrhosis of liver Prothrombin Time w/INR 2 Weeks K74.60 - Unspecified cirrhosis of liver CBC W/Diff, Automated 3 Months D64.9 - Anemia, unspecified, I27.20 - Pulmonary hypertension, unspecified, K74.60 - Unspecified cirrhosis of liver Comprehensive Metabolic Profil 3 Months D64.9 - Anemia, unspecified, I27.20 - Pulmonary hypertension, unspecified, K74.60 - Unspecified cirrhosis of liver Ammonia 3 Months D64.9 - Anemia, unspecified, I27.20 - Pulmonary hypertension, unspecified, K74.60 - Unspecified cirrhosis of liver Prothrombin Time w/INR 3 Months D64.9 - Anemia, unspecified, I27.20 - Pulmonary hypertension, unspecified, K74.60 - Unspecified cirrhosis of liver AFP, Tumor Marker 3 Months D64.9 - Anemia, unspecified, I27.20 - Pulmonary hypertension, unspecified, K74.60 - Unspecified cirrhosis of liver Medications: New potassium,sodium monobas phos 305-700 mg 1 TAB PO BID 3 days 6 tabs 0RF Resumed furosemide (Lasix) 20 mg PO Q OTHER DAY 3 months 45 tabs 6RF edema ]
--- NOTE | 2025-10-27 06:54 | PCM.PRE.AN2 ---
ASA Classification* ASA Classification ASA Classification: 2 Assessment & Plan Anesthesia* Anesthesia Assessment Anesthesia Assessment: Discussed sedation and/or anesthesia options, risks, benefits, and alternatives with patient/parents/legal guardian/POA. Questions invited. The patient/parents/legal guardian/POA seems to understand and agrees to proceed with anesthesia plan. Reviewed the physical assessment, medical history, allergy history and patient home medications list prior to surgery/procedure/anesthetic and documented any changes. Performed airway and anesthesia risk assessments. Anesthesia Type Anesthesia Type: MAC Anesthesia Focused Assessment* Airway Assessment Mouth opens: >3 cm Mallampati Score: II Labs Anesthesia Preop lab: CBC WBC, (4.4-11.0) 4.3 K/mm3 L 06/08/25, 08:13 RBC, (4.2-5.4) 2.70 M/mm3 L 06/08/25, 08:13 Hgb, (12.0-15.0) 9.4 g/dL L 06/08/25, 08:13 Hct, (37-47) 27.1 % L 06/08/25, 08:13 Plt Count, (150-450) 53 K/mm3 L 06/08/25, 08:13 CHEMISTRY Potassium, (3.3-5.1) 4.1 mmol/L 08/06/25, 10:04 Sodium, (133-145) 134 mmol/L 08/06/25, 10:04 Magnesium, (1.5-2.2) 2.0 mg/dL 06/17/25, 09:31 Phosphorus, (2.7-4.5) 2.5 mg/dL L 06/17/25, 09:31 BUN, (4-19) 24 mg/dL H 08/06/25, 10:04 Creatinine, (0.70-1.20) 1.48 mg/dL H 08/06/25, 10:04 Glucose, (70-99) 163 mg/dL H 08/06/25, 10:04 POC Glucose, (74-106) 348 mg/dL H 07/21/24, 11:39 TSH, (0.300-4.200) 3.300 uIU/mL 06/08/25, 08:13 COAG PT, (11.7-14.9) 15.3 SECONDS H 06/08/25, 08:13 Pre-Assessment Diagnosis/Proposed Procedure Planned Operative Procedure(s): EGD, colonoscopy Anesthesia History Anesthesia History - director corporate compliance: Anesthesia History - director corporate compliance Hx Hospitalization No 10/18/25 15:30 Any Problems With Anesthesia No 10/18/25 15:30 Cholinesterase deficiency No 10/18/25 15:30 You/Your Family Experience No 10/18/25 15:30 fever (hyperthermia) with Relationship Recent Exposure to Contagious Yes: Covid on 07/03/2024 07/20/24 02:53 Disease Does patient have nerve No 10/18/25 15:30 stimulator Patient instructed to have device shut off --Does patient have Pacemaker or ICD? When Was Last Pacemaker Check QUESTION #4 FULL TEXT: You/Your Family Experience fever (hyperthermia) with Anesthesia Last Oral Intake Last Oral intake: Last Oral Intake NPO since Meds taken in AM with sips of water? Meds patient instructed to take am of surgery PONV PONV - director corporate compliance: PONV - director corporate compliance Female Yes 10/18/25 15:30 HX of Motion Sickness No 10/18/25 15:30 HX of N/V After Surgery No 10/18/25 15:30 Non-Smoker Yes 10/18/25 15:30 Duration of Surgery greater No 10/18/25 15:30 than 60 minutes Number of Risk Factors 2 10/18/25 15:30 PONV Score Moderate Risk 10/18/25 15:30 Height & Weight Height & Weight: Anesthesia: Height & Weight Height 5 ft 1 in 06/17/25 13:35 Respiratory Assessment Respiratory Assessment - director corporate compliance: Respiratory Tract Infection Hx - director corporate compliance Hx Respiratory Tract Infection No 10/18/25 15:30 STOP Sleep Apnea STOP Sleep Apnea - director corporate compliance: STOP Sleep Apnea - director corporate compliance Hx Hypertension Yes 10/18/25 15:30 Hx Sleep Apnea No 10/18/25 15:30 CPAP BIPAP Do you snore loudly (louder No 10/18/25 15:30 than talking or can be heard Do you often feel tired/ No 10/18/25 15:30 fatigued/ sleepy during daytime? Has anyone observed you stop No 10/18/25 15:30 breathing during sleep? STOP Results Negative 10/18/25 15:30 QUESTION #5 FULL TEXT : Do you snore loudly (louder than talking or can be heard through closed doors)? 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 Specify any problems Hx of Preganancy in last 3 N/A 10/18/25 15:30 Months Nurse Filling Out Transfusion BRAXTONOERDOROTEO 10/18/25 15:30 & Questions: Date: 10/18/25 10/18/25 15:30 Time: 15:37 10/18/25 15:30 Patient unable to answer at this time (ie. confused, unrespo /Reproduction History /Reproductive History - director corporate compliance: /Reproductive Hx- director corporate compliance Hx Now Gestational Age (in weeks): EDC: Hx Hx Para Hx Section SAB No 10/18/25 15:30 Does the father of the baby or his family experience fever w Father of the baby Malignant Hypertension history comment Active Medications Active Medications: Current Medications Generic Name Dose Route Start Last Admin Trade Name Freq PRN Reason Stop Dose Admin Lactated Ringer's 1,000 mls @ 15 mls/hr 10/27/25 06:45 IV .Q48H MARCUS PFSH Medical History Abnormal ultrasound of liver Cataract (lens) fragments in eye following cataract surgery, bilateral Chronic kidney disease (CKD) Difficult intravenous access Wears glasses History of GI bleed History of ulceration Non-smoker Shortness of breath on exertion History of echocardiogram Cardiology follow-up encounter History of rheumatic fever Esophageal varices Renal insufficiency Vitamin B 12 deficiency Pulmonary HTN Rheumatic mitral insufficiency Hyperlipidemia Essential hypertension Acquired thrombocytopenia Diarrhea Anemia Bleeding tendency Post-menopausal Restless legs History of stress test Irregular heartbeat Thrombocytopenia Cirrhosis Acute on chronic blood loss anemia Diabetes Atrial fibrillation Home Medications ?Medication ?Instructions ?Recorded ?Last Taken ?Type cholecalciferol (vitamin D3) 25 25 mcg PO DAILY supplement 12/12/21 01/01/24 08:30 History mcg (1,000 unit) tablet (Vitamin D3) glimepiride 4 mg tablet 4 mg PO BID diabetes 12/12/22 01/01/24 16:00 History ezetimibe 10 mg tablet 10 mg PO DAILY Cholesterol 12/31/23 01/01/24 19:00 History famotidine 20 mg tablet 20 mg PO BID Stomach acid 90 days 05/11/24 Unknown Rx #180 tabs ferrous sulfate 325 mg (65 mg 325 mg PO DAILY supplement 05/15/24 Unknown History iron) tablet colestipol 1 gram tablet 1 g PO DAILY PRN Diarrhea #90 tabs 07/04/24 Unknown Rx carvedilol 6.25 mg tablet 6.25 mg PO BID BP #180 tabs 12/07/24 Unknown Rx levothyroxine 25 mcg tablet 25 mcg PO QDAY 02/08/25 Unknown History metformin 500 mg tablet 1,000 mg PO BID diabetes 02/08/25 Unknown History 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 3 02/09/25 Unknown Rx months #180 tabs spironolactone 50 mg tablet 25 mg (1/2 x 50 mg) PO DAILY BP 3 06/09/25 Unknown Rx months #45 tabs furosemide 20 mg tablet (Lasix) 30 mg PO DAILY edema 10/18/25 Unknown History magnesium oxide 400 mg (241.3 mg 400 mg PO BID supplement 10/18/25 Unknown History magnesium) tablet mirtazapine 15 mg tablet 15 mg PO QPM PRN to increase 10/18/25 Unknown History apetite Allergy/AdvReac Type Severity Reaction Status Date / Time diltiazem (From Cardizem) AdvReac Intermediate elevates Verified 02/08/25 10:52 glucose sitagliptin (From Januvia) AdvReac Intermediate CP/SOB Verified 02/08/25 10:52 pioglitazone (From Actos) AdvReac Swelling Verified 02/08/25 10:52 Lvtmvaw-ENR-ZiR Reductase AdvReac MAKES MY Verified 02/08/25 10:52 Inhibitor (Ctrtxmb-Pjp-Hif LEGS ACHE Reductase Inhibitor) Family History Father No problems noted. Surgical History History of bilateral cataract extraction (~08/2023) History of colonoscopy S/P ablation of atrial fibrillation History of cholecystectomy History of History of esophagogastroduodenoscopy (EGD) History of prior ablation treatment Social History Smoking Status: Never smoker alcohol intake: never substance use type: does not use caffeine: Yes what type of physical activity do you participate in: walking frequency: 3-4 times per week Review of Systems (Anesthesia) ROS Narrative System reviewed and no additional complaints, except as documented.
[2025-10-27] MEDS: Lactated Ringers 1,000 ML 15 ML IV (07:15)
--- NOTE | 2025-10-27 07:30 | COLBX_PTH ---
PATIENT: ROBBIN STILL LOC: EN U#:[id number] AGE/SX: 70/F ROOM: RE10/27/[address]: Dr. Minh Martinez DO : 1955 BED: DIS: 10/27/2025 SPEC #: [id number] RECD: 10/27/25 09:49 STATUS: REVA RERonnie #: [id number] JACOB: 10/27/25 07:[address]: Minh Martinez DEPT: SURGICAL PATHOLOGY RECD BY: Fannie Ramirez ENTERED: 10/27/25 11:18 SP TYPE: COLON BX OTHR DR: Dr. Billy Wong MD Tissues: Cecum, NOS Procedures: Surgery Specimen Level IV HEADER OPERATION: Colonoscopy with biopsies, EGD PRE-OP DIAGNOSIS: Cirrhosis, esophageal varices TISSUE SUBMITTED: A. Cecal polyp MICROSCOPIC DIAGNOSIS A. Colon, cecum, polyp, biopsy: - Inflammatory polyp. MICROSCOPIC DESCRIPTION Slides are reviewed. GROSS DESCRIPTION A. Received is one container labeled with the patient name and designated cecal. The specimen consists of one irregular fragment of light schultz soft tissue that measures 0.3 x 0.3 x 0.2 cm. The specimen is totally submitted in one cassette. 10/27/2025 CPT:60171
[2025-10-27] MEDS: Lidocaine 1% (5 ml sdv) 5 ML Vial 8 ML IV (08:05)
--- NOTE | 2025-10-27 08:27 | OP.PROVAT_ITS ---
10/27/2025 Billy Wong MD Re : Upper GI endoscopy procedure for Jacqueline Morse Dear Dr. Wong This procedure was performed on Monday, October 27, 2025. My impressions and recommendations are as follows: Impressions : - Grade II esophageal varices. - Portal hypertensive gastropathy. - Erythematous duodenopathy. - No specimens collected. Recommendations : - Discharge patient to home. - Resume previous diet. - Continue present medications. My findings are described in the full procedure note, which is enclosed. If I can be of further assistance, please feel free to contact me at . Sincerely, Minh Martinez, 10/27/2025 8:27:09 AM This report has been signed electronically.
--- NOTE | 2025-10-27 08:27 | OP.EGD_ITS ---
Patient Name: Jacqueline Morse Procedure Date: 10/27/2025 7:56 AM Date of : 1955 Age: 70 Procedure: Upper GI endoscopy Indications: Abdominal pain in the right upper quadrant, Esophageal varices Providers: Minh Martinez DO Medicines: Monitored Anesthesia Care Patient Profile: This is a 70 year old female. Refer to note in patient chart for documentation of history and physical. Patient has symptoms of acute abdominal distention and chronic nausea. Complications: No immediate complications. Procedure: Pre-Anesthesia Assessment: - Prior to the procedure, a History and Physical was performed, and patient medications and allergies were reviewed. The patient is competent. The risks and benefits of the procedure and the sedation options and risks were discussed with the patient. All questions were answered and informed consent was obtained. Patient identification and proposed procedure were verified by the physician in the pre-procedure area. Mental Status Examination: alert and oriented. Airway Examination: normal oropharyngeal airway and neck mobility. Respiratory Examination: clear to auscultation. CV Examination: normal. Prophylactic Antibiotics: The patient does not require prophylactic antibiotics. Prior Anticoagulants: The patient has taken no anticoagulant or antiplatelet agents. ASA Grade Assessment: III - A patient with severe systemic disease. After reviewing the risks and benefits, the patient was deemed in satisfactory condition to undergo the procedure. The anesthesia plan was to use monitored anesthesia care (MAC). Immediately prior to administration of medications, the patient was re-assessed for adequacy to receive sedatives. The heart rate, respiratory rate, oxygen saturations, blood pressure, adequacy of pulmonary ventilation, and response to care were monitored throughout the procedure. The physical status of the patient was re-assessed after the procedure. After obtaining informed consent, the endoscope was passed under direct vision. Throughout the procedure, the patient's blood pressure, pulse, and oxygen saturations were monitored continuously. The colonoscope was introduced through the mouth, and advanced to the fourth part of the duodenum. Small bowel enteroscopy was deemed necessary. The upper GI endoscopy was accomplished without difficulty. The patient tolerated the procedure well. Scope In: 8:06:47 AM Scope Out: 8:08:52 AM Total Procedure Duration Time 0 hours 2 minutes 5 seconds Findings: Grade II varices were found in the lower third of the esophagus. Severe portal hypertensive gastropathy was found in the entire examined stomach. Diffuse moderately erythematous mucosa without active bleeding and with no stigmata of bleeding was found in the entire duodenum. Impression: - Grade II esophageal varices. - Portal hypertensive gastropathy. - Erythematous duodenopathy. - No specimens collected. Recommendation: - Discharge patient to home. - Resume previous diet. - Continue present medications. Procedure Code(s): --- Professional --- 50025, Small intestinal endoscopy, enteroscopy beyond second portion of duodenum, not including ileum; diagnostic, including collection of specimen(s) by brushing or washing, when performed (separate procedure) CPT copyright 2021 [employer]. All rights reserved. The codes documented in this report are preliminary and upon coder operator review may be revised to meet current compliance requirements. Minh Martinez DO 10/27/2025 8:27:09 AM This report has been signed electronically. Number of Addenda: 0 Note Initiated On: 10/27/2025 7:56 AM
--- NOTE | 2025-10-27 08:30 | OP.COLON_ITS ---
Patient Name: Jacqueline Morse Procedure Date: 10/27/2025 8:09 AM Date of : 1955 Age: 70 Procedure: Colonoscopy Indications: High risk colon cancer surveillance: Personal history of colonic polyps Providers: Minh Martinez DO Medicines: Monitored Anesthesia Care Patient Profile: This is a 70 year old female. Refer to note in patient chart for documentation of history and physical. Patient has symptoms of acute abdominal distention and chronic nausea. Last Colonoscopy: several years ago. Complications: No immediate complications. Procedure: Pre-Anesthesia Assessment: - Prior to the procedure, a History and Physical was performed, and patient medications and allergies were reviewed. The patient is competent. The risks and benefits of the procedure and the sedation options and risks were discussed with the patient. All questions were answered and informed consent was obtained. Patient identification and proposed procedure were verified by the physician in the pre-procedure area. Mental Status Examination: alert and oriented. Airway Examination: normal oropharyngeal airway and neck mobility. Respiratory Examination: clear to auscultation. CV Examination: normal. Prophylactic Antibiotics: The patient does not require prophylactic antibiotics. Prior Anticoagulants: The patient has taken no anticoagulant or antiplatelet agents. ASA Grade Assessment: III - A patient with severe systemic disease. After reviewing the risks and benefits, the patient was deemed in satisfactory condition to undergo the procedure. The anesthesia plan was to use monitored anesthesia care (MAC). Immediately prior to administration of medications, the patient was re-assessed for adequacy to receive sedatives. The heart rate, respiratory rate, oxygen saturations, blood pressure, adequacy of pulmonary ventilation, and response to care were monitored throughout the procedure. The physical status of the patient was re-assessed after the procedure. After I obtained informed consent, the scope was passed under direct vision. Throughout the procedure, the patient's blood pressure, pulse, and oxygen saturations were monitored continuously. The colonoscope was introduced through the anus and advanced to the cecum, identified by appendiceal orifice and ileocecal valve. The colonoscopy was performed without difficulty. The patient tolerated the procedure well. The quality of the bowel preparation was adequate. The ileocecal valve, appendiceal orifice, and rectum were photographed. Scope In: 8:10:36 AM Scope Withdrawal Time 0 hours 7 minutes 22 seconds Scope Out: 8:21:17 AM Total Procedure Duration Time 0 hours 10 minutes 41 seconds Findings: The perianal and digital rectal examinations were normal. Large, non-bleeding rectal varices were found. A 5 mm polyp was found in the cecum. The polyp was sessile. The polyp was removed with a jumbo cold forceps. Resection and retrieval were complete. Verification of patient identification for the specimen was done. Estimated blood loss was minimal. An area of moderately congested mucosa was found in the entire colon. Impression: - Rectal varices. - One 5 mm polyp in the cecum, removed with a jumbo cold forceps. Resected and retrieved. - Congested mucosa in the entire examined colon. Recommendation: - Discharge patient to home. - Resume previous diet. - Continue present medications. - Await pathology results. - Repeat colonoscopy in 5 years for surveillance. Procedure Code(s): --- Professional --- 62140, Colonoscopy, flexible; with biopsy, single or multiple CPT copyright 2021 [employer]. All rights reserved. The codes documented in this report are preliminary and upon sales training coordinator review may be revised to meet current compliance requirements. Minh Martinez DO 10/27/2025 8:30:26 AM This report has been signed electronically. Number of Addenda: 0 Note Initiated On: 10/27/2025 8:09 AM
--- NOTE | 2025-10-27 08:30 | OP.PROVAT_ITS ---
10/27/2025 Billy Wong MD Re : Colonoscopy procedure for Jacqueline Morse Dear Dr. Wong This procedure was performed on Monday, October 27, 2025. My impressions and recommendations are as follows: Impressions : - Rectal varices. - One 5 mm polyp in the cecum, removed with a jumbo cold forceps. Resected and retrieved. - Congested mucosa in the entire examined colon. Recommendations : - Discharge patient to home. - Resume previous diet. - Continue present medications. - Await pathology results. - Repeat colonoscopy in 5 years for surveillance. My findings are described in the full procedure note, which is enclosed. If I can be of further assistance, please feel free to contact me at . Sincerely, Minh Martinez, 10/27/2025 8:30:26 AM This report has been signed electronically.
--- NOTE | 2025-10-27 09:03 | PCM.POST.ANE ---
Anesthesia: Postop Eval I Current Vital Signs Temperature: 98.3 F Pulse Rate: 74 Blood Pressure: 95/59 Respiratory Rate: 16 Pulse Ox: 100 Assessment Airway patent: Yes Spontaneous unlabored respirations: Yes nausea: No Vomiting: No Anesthesia Complication: No Fluid Hydration Crystalloid volume administer (ml): 500 Total IV fluid infused: 500 Progress Note Anesthesia document: Postop Eval 1 completed: Yes
--- NOTE | 2025-10-27 09:30 | POSTOPAN2_ITS ---
Anesthesia Postop Eval I Sum Postop Eval Completion status Anesthesia document: Postop Eval 1 completed: Yes Anesthesia Postop Eval I Summary Anesthesia Postop Eval I Summary: Anesthesia Postop Eval I: Assessment Summary Airway patent Yes 10/27/25 09:03 PERSONNEL SECURITY [email or web address].[email or web address] Spontaneous unlabored Yes 10/27/25 09:03 PERSONNEL SECURITY ASSISTANT.TNES respirations Mental status nausea No 10/27/25 09:03 PERSONNEL SECURITY ASSISTANT.TNES Vomiting No 10/27/25 09:03 PERSONNEL SECURITY ASSISTANT.[email or web address] Anesthesia Postop Eval I: Fluid Summary Crystalloid volume administer 500 10/27/25 09:03 PERSONNEL SECURITY ASSISTANT.TNES (ml) Colloids volume administered ( ml) Blood Product volume administered (ml) Total IV fluid infused 500 10/27/25 09:03 PERSONNEL SECURITY ASSISTANT.TNES Anesthesia Postop Eval I: Summary Notes Anesthesia Complication No 10/27/25 09:03 PERSONNEL SECURITY ASSISTANT.TNES Anesthesia Complication Comment: Post-operative progress note Anesthesia: Postop Eval II Evaluation Mental status: Awake Pain Level: 0 nausea: No Vomiting: No
--- NOTE | 2025-10-27 09:30 | PCM.POSTANE2 ---
Anesthesia Postop Eval I Sum Postop Eval Completion status Anesthesia document: Postop Eval 1 completed: Yes Anesthesia Postop Eval I Summary Anesthesia Postop Eval I Summary: Anesthesia Postop Eval I: Assessment Summary Airway patent Yes 10/27/25 09:03 FILTER PRESS [email or web address] Spontaneous unlabored Yes 10/27/25 09:03 FILTER PRESS [email or web address].[email or web address] respirations Mental status nausea No 10/27/25 09:03 FILTER PRESS [email or web address].[email or web address] Vomiting No 10/27/25 09:03 FILTER PRESS [email or web address].[email or web address] Anesthesia Postop Eval I: Fluid Summary Crystalloid volume administer 500 10/27/25 09:03 FILTER PRESS [email or web address].TNES (ml) Colloids volume administered ( ml) Blood Product volume administered (ml) Total IV fluid infused 500 10/27/25 09:03 FILTER PRESS [email or web address].[email or web address] Anesthesia Postop Eval I: Summary Notes Anesthesia Complication No 10/27/25 09:03 FILTER PRESS [email or web address].[email or web address] Anesthesia Complication Comment: Post-operative progress note Anesthesia: Postop Eval II Evaluation Mental status: Awake Pain Level: 0 nausea: No Vomiting: No
[2025-10-27 10:34] LABS: Hematocrit 25.3 % (37-47); Hemoglobin 8.7 g/dL (12.0-15.0); Immature Granulocytes Count 0.020 X10^3/uL (0.0-0.0); Mean Corp Hgb Conc 34.4 g/dL (32-36); Mean Corpuscular Volume 97.7 fL (81-99); Mean Platelet Vol. 9.7 fl (6.2-12.0); NRBC Flagged by Analyzer 0 % (0-5); POSITIVE COUNT YES; Platelet Count 67 K/mm3 (150-450); RBC Distribution Width CV 14.3 % (11.6-14.6); RBC Distribution Width SD 51.8 fl (35.1-43.9); Red Blood Count 2.59 M/mm3 (4.2-5.4); White Blood Count 4.4 K/mm3 (4.4-11.0)
[2025-10-27 10:43] LABS: Ammonia 14.9 umol/L (11-51)
[2025-10-27 10:46] LABS: Prothrombin Time (Protime)PT. 16.4 SECONDS (11.7-14.9)
[2025-10-27 11:16] LABS: AST(SGOT) 40 U/L (<=31); Alanine Aminotransfer ALT/SGPT 26 U/L (<=34); Albumin, Serum 3.0 g/dL (3.4-4.8); Alkaline Phosphatase 77 U/L (35-104); Anion Gap 10 (7-18); BUN 24 mg/dL (4-19); BUN/Creat Ratio 13.9 RATIO (10-20); Calcium,Total 9.1 mg/dL (7.6-11.0); Carbon Dioxide 22.3 mmol/L (20.0-29.0); Chloride 98 mmol/L (96-106); Estimated Creatinine Clearance 25.24 ml/min (50-250); Globulin 3.4 g/dL (2.2-4.2); Glucose 199 mg/dL (70-99); Potassium 3.4 mmol/L (3.5-5.1)
== END 2025-10-27 09:38 | disposition home or self-care (01) ==
LOC: EN 06:29 → AC 06:30
PROVIDERS: Internal Medicine; PCP Family Medicine; Referring Provider Family Medicine; Visit Provider Internal Medicine Gastroenterology
PROC: 0DJD8ZZ Inspection of Lower Intestinal Tract, Via Natural or Artificial Opening Endoscopic (ICD-10-PCS; CPT 45378; principal; 2025-10-27 07:25)
DX: Z12.11 Encounter for screening for malignant neoplasm of colon (principal); I85.00 Esophageal varices without bleeding; K74.60 Unspecified cirrhosis of liver; I27.20 Pulmonary hypertension, unspecified; I48.0 Paroxysmal atrial fibrillation; K51.40 Inflammatory polyps of colon without complications; E11.22 Type 2 diabetes mellitus with diabetic chronic kidney disease; D64.9 Anemia, unspecified; N18.9 Chronic kidney disease, unspecified; I12.9 Hypertensive chronic kidney disease with stage 1 through stage 4 chronic kidney disease, or unspecified chronic kidney disease; Z86.0100 Personal history of colon polyps, unspecified; Z79.01 Long term (current) use of anticoagulants; E78.2 Mixed hyperlipidemia; Z79.899 Other long term (current) drug therapy
CPT/HCPCS: 44360; 45380; 80053; 82105; 82140; 82962; 85025; 85610; 88305